=== PATIENT | female | born 1935 | race Caucasian/White ===

== ENCOUNTER 2021-10-06 11:44 | Outpatient (CLI) | payer BC, SELFPAY ==
[2021-10-06 12:46] LABS: Absolute Lymphocyte Count 2.75 X10^3/uL (0.83-4.51); Absolute Neutrophil Count 4.9 X10^3/uL (2.0-7.7); Basophil# 0.05 X10^3/uL; Basophil% 0.6 % (0-1); Eosinophil# 0.29 X10^3/uL; Eosinophils% 3.4 % (0-5); Hematocrit 49.8 % (37-47); Hemoglobin 15.4 g/dL (12.0-15.0); Lymphocyte # 2.75 X10^3/ul (0.83-4.51); Lymphocyte % 32.3 % (19-41); Mean Corp Hgb Conc 30.9 g/dL (32-36); Mean Corpuscular Hgb 26.7 pg (27.0-32.0); Mean Corpuscular Volume 86.5 fL (81-99); Mean Platelet Vol. 9.8 fl (6.2-12.0); Monocyte# 0.52 X10^3/uL; Monocyte% 6.1 % (0-10); NRBC Flagged by Analyzer 0 % (0-5); Neutrophil # 4.89 X10^3/uL (2.7-7.7); Neutrophil % 57.4 % (47-70); Platelet Count 253 K/mm3 (150-450); RBC Distribution Width CV 14.3 % (11.6-14.6); RBC Distribution Width SD 45.3 fl (35.1-43.9); Red Blood Count 5.76 M/mm3 (4.2-5.4); White Blood Count 8.5 K/mm3 (4.4-11.0)
[2021-10-06 13:15] LABS: Anion Gap 2 (5-15); BUN 9 mg/dL (7-18); BUN/Creat Ratio 10.8 RATIO (10-20); Calcium,Total 9.3 mg/dL (8.5-10.1); Chloride 109 mmol/L (98-107); Creatinine, Serum 0.83 mg/dL (0.55-1.02); EST Glomerular Filtration Rate 69 mL/min (>60); Est Glom Filt Rate - Afr Amer 84 mL/min (>60); Glucose 100 mg/dL (74-106); Potassium 3.8 mmol/L (3.5-5.1); Sodium Level 140 mmol/L (136-145); Thyroid Stim Hormone (TSH) 2.13 uIU/mL (0.358-3.74)
== END 2021-10-06 23:59 | disposition home or self-care (01) ==
LOC: LAB 11:50
PROVIDERS: Visit Provider Internal Medicine Cardiovascular Disease
DX: R07.89 Other chest pain (principal); I10 Essential (primary) hypertension; R00.2 Palpitations
CPT/HCPCS: 36415; 80048; 84443; 85025

== ENCOUNTER 2021-10-30 11:29 | Observation (INO) | payer MEDICARE, SELFPAY ==
[2021-10-20 07:57] VITALS: BMI 26.9
--- NOTE | 2021-10-28 08:25 | CASEMGMT ---
According to [employer]'s website, the following tertiary facilities are in network: [facility], [place], [facility], [facility], [facility], [facility] and .
[2021-10-30] VITALS (13 sets, daily range): BP systolic 105–144; BP diastolic 55–85; PULSE 68–80; RESP 16–18; TEMP 36.7–37.5; O2SAT 92–97
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
--- NOTE | 2021-10-30 12:31 | PCIREPORT_ITS ---
PCI Cardiac Cath Report PCI Report: Procedure performed; 1. Successful PCI of mid left circumflex artery high-grade 95% stenosis, with predilatation using 2.5 x 50 mm balloon followed by placement drug-eluting stent SOFYA/Orsiro's 3 x 18 mm and achievement of excellent result with no residual stenosis, 0% and maintenance of ZACK-3 flow pre and post procedure 2. Successful PCI of the mid LAD 70% stenosis at the site of the diagonal branch, D1 is not a large vessel and small vessel, mid LAD predilated using 2.5 x 15 mm Emerge balloon Followed by placement of drug-eluting stent 3 x 15 mm SOFYA/Orsior, followed by performance of pot technique/proximal optimization technique using 3.5 x 8 mm NC balloon to the proximal portion of the stent of the LAD and achievement of 0% post procedure/no residual stenosis, and maintenance of ZACK-3 flow pre and post procedure in the LAD 3. Selective right common femoral artery angiography. 4. Hemostasis will be maintained with manual pressure Medication used in the Student Affairs Vice President Patient was given aspirin Brilinta 180 mg Heparin 6000 units intravenous with acceptable ACT level more than 250 Consent; Risk and benefits of the procedure explained in detail to the patient she elected to proceed informed consent obtained Preprocedure diagnosis; 86-year-old patient who had symptoms of chest pain seen and evaluated by her primary liquid yeast supervisor Dr. Cast and reviewed the cardiac catheterization findings coronary angiography Noted she had two-vessel disease with a high-grade stenosis involving the mid left circumflex 95% and mid LAD 70% LV systolic function preserved Left main had no significant atherosclerosis as well as RCA. Based on her clinical presentation we will proceed with intervention for two- vessel PCI. Interventional equipment and plan.; 1. 6 Ecuadorean sheath exchange to the right common femoral artery 2. 6 Ecuadorean 3.5 EBU guide catheter 3. 0.014 BMW universal straight 190 cm wire 4. 0.014 run-through extra floppy 180 cm straight wire./Guidewire. 5. 2.5 x 15 mm Emerge balloon 6. 3 x 18 mm drug-eluting stent/SOFYA Orsiro 7. 3 x 15 mm drug-eluting stent/SOFYA/Orsiro 8. 3.5 x 8 mm NC Emerge balloon Procedure in detail; Under fluoroscopic guidance we will proceed with the guide catheter 3.5 EBU guide 6 Ecuadorean cannulated the left main without difficulty. Angiographic view was obtained Following this we will proceed with the guidewire run-through guidewire across the lesion in the left circumflex artery followed by predilatation using the 2.5 mm balloon followed by placement of drug-eluting stent and achievement of excellent result Then we used the same wire which was used for the LAD bifurcation lesion 7 across the lesion in the diagonal branch place run-through wire there and then we used a separate wire BMW wire and across the lesion in the mid LAD Followed by predilatation using 2.5 x 50 mm Emerge balloon followed by placement of drug-eluting stent 3 x 50 mm and postdilated using 3.5 x 8 mm NC balloon in the proximal portion of the stent performing this technique which is proximal optimization technique with excellent result with no loss for sidebranch and patient remains a stable clinically she does not have any symptoms of chest pain there were no change in the cardiac monitoring Conclusion successful PCI of the vessel including the mid left circumflex and the mid LAD as described Selective common femoral artery angiography obtained and hemostasis will be maintained with manual pressure Recommendation plan; 1. Patient to continue on DAPT which is low-dose aspirin in addition to Brilinta 90 mg twice a day 2. Patient will be scheduled for cardiac rehab phase 1 program here at [facility] Patient will continue to follow-up with her primary liquid yeast supervisor Dr. Cast for continuation of cardiac care plan and further cardiac recommendation Please note patient tolerated the procedure well in the Student Affairs Vice President with no complication in the Student Affairs Vice President Finding of the PCI explained to the as well as to the patient. Rachael Reed MD,[facility]
--- NOTE | 2021-10-30 12:45 | EKG12_ITS ---
Test Reason : POST PCI Blood Pressure : / mmHG Vent. Rate : 076 BPM Atrial Rate : 076 BPM P-R Int : 152 ms QRS Dur : 086 ms QT Int : 400 ms P-R-T Axes : 056 051 025 degrees QTc Int : 450 ms Normal sinus rhythm Normal ECG Confirmed by CARLEE ANDERSON, RADHA ([id number]), newspaper or periodical editor BECKA MCCRARY ([id number]) on 11/09/2021 1:36:15 PM Referred By: SANTIAGO Confirmed By:RADHA BEJARANO MD
--- NOTE | 2021-10-30 15:15 | CRPHASE1_ITS ---
Patient Communication PHII Cardiac Rehab Discussed with Patient:: Yes Guide to Cardiac Rehab Given to Patient:: Yes Cardiac Rehab Facility Choice List Given to Patient:: Yes Choice Program Other:: Communication [facility] [place] [place] Stage Electrician:: Rachael Reed - Intervention dr Robertson Phase II Cardiac Rehab:: Yes Sessions:: 36 sessions - 3 days/wk, 12 weeks Cardiac Rehabilitation Info Cardiac Rehabilitation Program Information: Cardiac Rehabilitation is important for patients like you who are recovering from a heart problem. Cardiac rehabilitation programs are recognized as integral to the continued care of the patient with coronary heart disease. The cardiac rehabilitation program is designed to optimize a patient's physical, psychological, and social functioning. Health care information associate work in cardiac rehabilitation programs and assist you with getting the treatments you need to get stronger and healthier - like exercise, healthy eating habits, and medications. Cardiac rehabilitation has been show to help people with heart problems live longer and have better life enjoyment than people who do not go to cardiac rehabilitation. Please contact the Cardiac Rehabilitation Program at [facility] at in two weeks if you have not heard from them.
--- NOTE | 2021-10-30 15:18 | CRPH1.INSTRU ---
General Education CAD and cardiac anatomy and function:: Needs reinforcement Explanation of diagnoses and procedures:: Needs reinforcement Sign/Symptoms of RI:: Needs reinforcement Antiplatelet therapy: Needs reinforcement Proper use of NTG-SL: Needs reinforcement Emergency procedures and activation of EMS: Needs reinforcement Compliance of all prescribed medications: Needs reinforcement Smoking Patient Nicotine/Smoking Risk Factors Are:: Never smoked Overweight/Obesity Patient Overweight/Obesity Risk Factors Are:: Overweight = 26-29 Recommendations Include:: Weight loss of 5-10%, Reduced calorie diet, Exercise 5-7 times/week Overweight/Obesity:: Needs reinforcement Hypertension Recommendations Include:: Maintain BP <130/85, BP <130/80 if diabetic, DASH dietary guidelines Hypertension:: Needs reinforcement
[2021-10-30] MEDS: TICAGRELOR 90 MG TABLET PO (23:47)
[2021-10-31 02:59] VITALS: PULSE 76
[2021-10-31 03:40] VITALS: BP 126/62; PULSE 74; RESP 18; TEMP 37.2; O2SAT 96
[2021-10-31 06:24] LABS: Hematocrit 43.3 % (37-47); Hemoglobin 13.9 g/dL (12.0-15.0); Mean Corp Hgb Conc 32.1 g/dL (32-36); Mean Corpuscular Hgb 27.5 pg (27.0-32.0); Mean Corpuscular Volume 85.7 fL (81-99); Mean Platelet Vol. 9.6 fl (6.2-12.0); Platelet Count 196 K/mm3 (150-450); RBC Distribution Width CV 14.2 % (11.6-14.6); RBC Distribution Width SD 44.7 fl (35.1-43.9); Red Blood Count 5.05 M/mm3 (4.2-5.4)
[2021-10-31 06:59] VITALS: PULSE 73
[2021-10-31 07:01] LABS: AST(SGOT) 24 U/L (15-37); Alanine Aminotransfer ALT/SGPT 27 U/L (13-56); Albumin, Serum 3.1 g/dL (3.2-5.0); Alkaline Phosphatase 97 U/L (45-117); Anion Gap 6 (5-15); BUN 9 mg/dL (7-18); BUN/Creat Ratio 10.6 RATIO (10-20); Calcium,Total 8.3 mg/dL (8.5-10.1); Chloride 108 mmol/L (98-107); Creatinine, Serum 0.85 mg/dL (0.55-1.02); EST Glomerular Filtration Rate 68 mL/min (>60); Est Glom Filt Rate - Afr Amer 82 mL/min (>60); Estimated Creatinine Clearance 38.97 ml/min; Glucose 104 mg/dL (74-106); Potassium 3.8 mmol/L (3.5-5.1); Protein, Total 6.1 g/dL (6.4-8.2); Sodium Level 140 mmol/L (136-145)
[2021-10-31 07:22] VITALS: O2SAT 93
--- NOTE | 2021-10-31 07:54 | PN.CARD_ITS ---
Subjective Subjective Patient seen and evaluated. Appears to be doing well. Underwent two-vessel stenting yesterday. Objective Data Vital Signs: Vital Signs Temp Pulse Resp BP Pulse Ox 99.0 F 73 18 126/62 H 96 10/31/21 03:40 10/31/21 06:59 10/31/21 03:40 10/31/21 03:40 10/31/21 03:40 Oxygen Flow Rate (L/min) 2 Oxygen Delivery Method Nasal Cannula Weight: 147 lb Body Mass Index (BMI) 26.9 Intake & Output: Intake and Output for Last 24 Hours 10/29/21 10/30/21 10/31/21 23:59 23:59 23:59 Intake Total 240 / 240 Balance 240 / 240 Lab / Micro Data Result Diagrams: 10/31/21 05:50 10/31/21 05:50 Labs: Laboratory Results - last 24 hr 10/31/21 05:50: WBC 7.0, RBC 5.05, Hgb 13.9, Hct 43.3, MCV 85.7, MCH 27.5, MCHC 32.1, RDW Std Deviation 44.7 H, RDW Coeff of Maggi 14.2, Plt Count 196, MPV 9.6 10/31/21 05:50: Sodium 140, Potassium 3.8, Chloride 108 H, Carbon Dioxide 26.0, Anion Gap 6, BUN 9, Creatinine 0.85, Estim Creat Clear Calc 38.97, Est GFR (MDRD) Af Amer 82, Est GFR (MDRD) Non-Af 68, BUN/Creatinine Ratio 10.6, Glucose 104, Calcium 8.3 L, Total Bilirubin 0.90, AST 24, ALT 27, Alkaline Phosphatase 97, Total Protein 6.1 L, Albumin 3.1 L, Globulin 3.0, Albumin/Globulin Ratio 1.0 Cardiology Labs/Tests 10/31/21 05:50: WBC 7.0, RBC 5.05, Hgb 13.9, Hct 43.3, MCV 85.7, MCH 27.5, MCHC 32.1, Plt Count 196, MPV 9.6 10/31/21 05:50: Sodium 140, Potassium 3.8, Chloride 108 H, Carbon Dioxide 26.0, Anion Gap 6, BUN 9, Creatinine 0.85, Est GFR (MDRD) Af Amer 82, Est GFR (MDRD) Non-Af 68, BUN/Creatinine Ratio 10.6, Glucose 104, Calcium 8.3 L, Total Bi lirubin 0.90 Rhythm: EKG: ECHO: Stress Test: Cardiac Cath: PCI: CT Surgery: Holter monitor: EPS: PPM: CXR: Chest CT Scan: Assessment & Plan Assessment/Plan (1) Atherosclerotic heart disease of [place] coronary artery without angina pectoris: PLAN: Patient is status post PCI of the proximal to mid LAD as well as the mid circumflex artery. Patient tolerated the procedure well. She will be discharged home on aspirin, Brilinta, beta-yoan and high intensity statin. She will be follow-up in office in 4 to 6 weeks.
--- NOTE | 2021-10-31 07:59 | PCM.DC ---
Discharge Instructions Diet Discharge Diet: No restrictions (You may continue your normal diet.) Activity Lifting Restrictions: 10 pounds and also avoid any pushing or pulling for 3 days after your test. Additional Activity Instructions:: You must have someone drive you home. Do not drive until instructed by your doctor. You must have someone stay with you all night after your test. Rest in bed or on the couch until the next morning. Limit the number of times you go up and down stairs the day of your test. Apply pressure to the puncture site if you sneeze or cough. Dressing / Incision Call your doctor if your incision/area has: Increased Pain/ Swelling, Increased Redness, Foul Smelling Discharge and Swelling at the incision site Call your doctor if you observe: Fever of 101 or Higher Additional Dressing/Incision Instructions:: Keep the dressing (bandage) on until the next morning. You may then shower, but do not take a tub bath for 5 days after your test. It is normal to have some tenderness and discomfort at the puncture site. Sometimes bruising also occurs. However, if pain, numbness, or coldness occurs below the puncture site (in your leg, toes, arms or fingers) call your doctor at once. You may have a small, marble sized knot at the puncture site. This is normal. Do not rub it. It will go away in 4-6 weeks. Bleeding can occur from the area where the puncture was done. Blood may spurt or drip from the site. If blood spurts, apply pressure right away to stop bleeding and call 911. Although rare, bleeding into the tissue (hematoma) can also occur. If this happens, a large, firm area goose egg under the skin will appear. If any of these occur, lie down as flat as you can and have someone apply firm pressure to the cath site with a gauze pad or a clean washcloth for 10-15 minutes. Call 911 or go to the Emergency Department. Follow Up Care Test Results: Test results from this visit will be discussed in further detail at your follow-up appointment, if applicable. My office will call for an appointment. Discharge Plan Admission Admit Date/Time: 10/30/21 11:29 Attending Provider: All Cast Primary Care Provider: Radha Xavier NP Discharge Orders/Prescriptions Prescriptions: New aspirin 81 mg Tablet,Delayed Release (Dr/Ec) 81 mg PO DAILY Qty: 60 RF: 0 atorvastatin 10 mg Tablet 10 mg PO QHS Qty: 60 RF: 3 metoprolol succinate 25 mg Tablet Extended Release 24 Hr 12.5 mg PO DAILY Qty: 60 RF: 3 Brilinta 90 mg Tablet 90 mg PO BID Qty: 180 RF: 3 No Action sennosides-docusate sodium [Senexon-S] 8.6-50 mg tablet 1 tab-cap PO QHS RF: 0 levothyroxine 25 mcg capsule 25 mcg PO DAILY RF: 0 pantoprazole 40 mg tablet,delayed release (DR/EC) 40 mg PO DAILY RF: 0 spironolactone 25 mg tablet 25 mg PO DAILY RF: 0 aspirin [Adult Aspirin Regimen] 81 mg tablet,delayed release (DR/EC) 81 mg PO DAILY RF: 0 Referrals / Follow Up: Radha Xavier NP, WEBSITE PROJECT MANAGER-C [Primary Care Provider] - Disposition Disposition (needs filled in before D/C Order can be placed): Home, Self Care
[2021-10-31] MEDS: Aspirin E.C. 81 MG Tablet PO (08:04)
--- NOTE | 2021-10-31 09:04 | CASEMGMT ---
Pt to be sent home on Brilinta and med e-scribed to [facility] in [place] previously. Call to [facility] and per tech, pt's co-pay for 3 month supply is $126(approx. $42/month). Pt updated and provided with one month free trial card, voices understanding. Pt voices no further questions/concerns/needs. Thomas HUTCHINS CM
[2021-10-31 09:10] VITALS: BP 112/73; PULSE 87; RESP 16; TEMP 36.6; O2SAT 95
[2021-10-31 09:12] VITALS: BP 112/73; PULSE 87
[2021-10-31] MEDS: Pantoprazole Sodium 40 MG Tablet PO (09:12)
[2021-10-31] MEDS: Metoprolol(XL)Succ 25 MG Tablet 12.5 MG PO (09:12)
[2021-10-31] MEDS: Levothyroxine 25 MCG TABLET PO (09:12)
[2021-10-31] MEDS: TICAGRELOR 90 MG TABLET PO (09:12)
[2021-10-31] MEDS: Spironolactone 25 MG Tablet PO (09:12)
--- NOTE | 2021-10-31 10:00 | EKG12_ITS ---
Test Reason : POST CATH Blood Pressure : / mmHG Vent. Rate : 072 BPM Atrial Rate : 072 BPM P-R Int : 146 ms QRS Dur : 092 ms QT Int : 406 ms P-R-T Axes : 036 -19 014 degrees QTc Int : 444 ms Normal sinus rhythm Nonspecific ST and T wave abnormality Abnormal ECG Confirmed by ELADIO ANDERSON, DEYSI ([id number]), story editor BECKA MCCRARY ([id number]) on 11/13/2021 1:44:02 PM Referred By: HILLARY Confirmed By:ALEXANDRU HENDRICKS MD
== END 2021-10-31 07:59 | disposition home or self-care (01) ==
LOC: PCU 15:30
PROVIDERS: Internal Medicine Interventional Cardiology; Admitting Provider Internal Medicine Cardiovascular Disease; Visit Provider Internal Medicine Cardiovascular Disease
DX: I25.110 Atherosclerotic heart disease of native coronary artery with unstable angina pectoris (principal); Z79.82 Long term (current) use of aspirin; Z79.899 Other long term (current) drug therapy; E03.9 Hypothyroidism, unspecified; Z79.890 Hormone replacement therapy; M19.90 Unspecified osteoarthritis, unspecified site; I10 Essential (primary) hypertension
CPT/HCPCS: 36415; 80053; 85027; 92928; 93005; 93458; 99152; 99153; 99218; C1874; J7040; Q9967; A4216; C1725; C1769; C1887; C1894; C9600; G0378; J2405

== ENCOUNTER 2021-11-10 10:06 | Outpatient (CLI) | payer MEDICARE, SELFPAY ==
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
== END 2021-11-10 23:59 | disposition home or self-care (01) ==
LOC: RAD 10:07
DX: R07.9 Chest pain, unspecified (principal); R06.00 Dyspnea, unspecified
CPT/HCPCS: 71046; 93005

== ENCOUNTER 2021-11-22 11:14 | Observation (INO) | payer MEDICARE, SELFPAY ==
[2021-11-22] VITALS (9 sets, daily range): BP systolic 143–154; BP diastolic 70–95; PULSE 70–81; RESP 11–22; TEMP 35.7–36.4; O2SAT 93–97; BMI 26.4; BMI 26.1
--- NOTE | 2021-11-22 11:54 | EKG12_ITS ---
Test Reason : CP Blood Pressure : / mmHG Vent. Rate : 066 BPM Atrial Rate : 066 BPM P-R Int : 152 ms QRS Dur : 092 ms QT Int : 410 ms P-R-T Axes : 052 -06 015 degrees QTc Int : 429 ms Normal sinus rhythm Nonspecific ST abnormality Abnormal ECG Confirmed by CARLEE ANDERSON, RADHA ([id number]), development editor BECKA MCCRARY ([id number]) on 11/24/2021 10:16:03 AM Referred By: DEQUAN Confirmed By:RADHA BEJARANO MD
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
[2021-11-22] MEDS: 0.9% Normal Saline 1,000 ML 150 ML IV (12:18)
[2021-11-22 12:31] LABS: Absolute Lymphocyte Count 1.95 X10^3/uL (0.83-4.51); Absolute Neutrophil Count 5.5 X10^3/uL (2.0-7.7); Basophil# 0.04 X10^3/uL; Basophil% 0.5 % (0-1); Eosinophil# 0.19 X10^3/uL; Eosinophils% 2.3 % (0-5); Hematocrit 50.7 % (37-47); Hemoglobin 16.3 g/dL (12.0-15.0); Lymphocyte # 1.95 X10^3/ul (0.83-4.51); Lymphocyte % 23.7 % (19-41); Mean Corp Hgb Conc 32.1 g/dL (32-36); Mean Corpuscular Hgb 27.8 pg (27.0-32.0); Mean Corpuscular Volume 86.4 fL (81-99); Mean Platelet Vol. 9.7 fl (6.2-12.0); Monocyte# 0.52 X10^3/uL; Monocyte% 6.3 % (0-10); NRBC Flagged by Analyzer 0 % (0-5); Neutrophil # 5.47 X10^3/uL (2.7-7.7); Neutrophil % 66.5 % (47-70); Platelet Count 218 K/mm3 (150-450); RBC Distribution Width SD 44.3 fl (35.1-43.9); Red Blood Count 5.87 M/mm3 (4.2-5.4); White Blood Count 8.2 K/mm3 (4.4-11.0)
[2021-11-22 12:48] LABS: Anion Gap 6 (5-15); BUN 11 mg/dL (7-18); BUN/Creat Ratio 15.4 RATIO (10-20); Calcium,Total 9.7 mg/dL (8.5-10.1); Chloride 106 mmol/L (98-107); Creatinine, Serum 0.71 mg/dL (0.55-1.02); EST Glomerular Filtration Rate 83 mL/min (>60); Est Glom Filt Rate - Afr Amer 100 mL/min (>60); Estimated Creatinine Clearance 33.12 ml/min; Glucose 93 mg/dL (74-106); Potassium 3.8 mmol/L (3.5-5.1); Sodium Level 139 mmol/L (136-145); Troponin-I HS 4 pg/mL (3.0-54.0)
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
--- NOTE | 2021-11-22 15:38 | EKG12_ITS ---
Test Reason : Blood Pressure : / mmHG Vent. Rate : 077 BPM Atrial Rate : 077 BPM P-R Int : 146 ms QRS Dur : 086 ms QT Int : 414 ms P-R-T Axes : 049 -20 -01 degrees QTc Int : 468 ms Normal sinus rhythm Nonspecific ST abnormality Abnormal ECG Confirmed by CARLEE ANDERSON, RADHA ([id number]), news editor BECKA MCCRARY ([id number]) on 11/24/2021 10:34:05 AM Referred By: Confirmed By:RADHA BEJARANO MD
[2021-11-22] MEDS: 0.9% Saline Lock 10 ML Syringe IV (16:13)
[2021-11-22] MEDS: 0.9% Normal Saline 1,000 ML 75 ML IV (16:13)
[2021-11-22 16:24] LABS: Hematocrit 47.6 % (37-47); Hemoglobin 16.1 g/dL (12.0-15.0)
[2021-11-22 16:37] LABS: Troponin-I HS < 3 pg/mL (3.0-54.0)
--- NOTE | 2021-11-22 18:39 | NURSING ---
Reviewed charting with Rebecca Tate RN
[2021-11-22 19:15] LABS: Hematocrit 41.2 % (37-47); Hemoglobin 13.3 g/dL (12.0-15.0)
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
[2021-11-22 19:49] LABS: Troponin-I HS < 3 pg/mL (3.0-54.0)
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
[2021-11-22] MEDS: Bisacodyl 5 MG Tablet 20 MG PO (21:17)
[2021-11-22] MEDS: Electrolyte Solution/Peg's 4000 ML PO (21:18)
[2021-11-22] MEDS: Atorvastatin Calcium 10 MG Tablet PO (21:20)
[2021-11-22] MEDS: Levothyroxine 25 MCG TABLET PO (21:20)
[2021-11-23] VITALS (15 sets, daily range): BP systolic 98–132; BP diastolic 41–90; PULSE 71–98; RESP 16; TEMP 36.1–36.5; O2SAT 92–98; BMI 26.1; BMI 25.8
[2021-11-23] MEDS: 0.9% Normal Saline 1,000 ML 75 ML IV (05:33)
[2021-11-23] MEDS: Clopidogrel Bisulfate 75 MG Tablet PO (05:47)
[2021-11-23] MEDS: Aspirin E.C. 81 MG Tablet PO (05:47)
--- NOTE | 2021-11-23 05:55 | EKG12_ITS ---
Test Reason : Blood Pressure : / mmHG Vent. Rate : 075 BPM Atrial Rate : 075 BPM P-R Int : 152 ms QRS Dur : 086 ms QT Int : 398 ms P-R-T Axes : 046 -24 003 degrees QTc Int : 444 ms Normal sinus rhythm Nonspecific ST abnormality Abnormal ECG Confirmed by CARLEE ANDERSON, RADHA ([id number]), editor index BECKA MCCRARY ([id number]) on 11/24/2021 10:36:21 AM Referred By: JUAN Confirmed By:RADHA BEJARANO MD
[2021-11-23 06:03] LABS: Absolute Lymphocyte Count 2.23 X10^3/uL (0.83-4.51); Absolute Neutrophil Count 4.9 X10^3/uL (2.0-7.7); Basophil# 0.03 X10^3/uL; Basophil% 0.4 % (0-1); Eosinophil# 0.19 X10^3/uL; Eosinophils% 2.4 % (0-5); Hematocrit 42.1 % (37-47); Hemoglobin 13.2 g/dL (12.0-15.0); Lymphocyte # 2.23 X10^3/ul (0.83-4.51); Lymphocyte % 28.4 % (19-41); Mean Corp Hgb Conc 31.4 g/dL (32-36); Mean Corpuscular Hgb 27.3 pg (27.0-32.0); Mean Corpuscular Volume 87.2 fL (81-99); Mean Platelet Vol. 9.7 fl (6.2-12.0); Monocyte# 0.46 X10^3/uL; Monocyte% 5.9 % (0-10); NRBC Flagged by Analyzer 0 % (0-5); Neutrophil # 4.91 X10^3/uL (2.7-7.7); Neutrophil % 62.5 % (47-70); Platelet Count 191 K/mm3 (150-450); RBC Distribution Width SD 44.6 fl (35.1-43.9); Red Blood Count 4.83 M/mm3 (4.2-5.4); White Blood Count 7.9 K/mm3 (4.4-11.0)
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
--- NOTE | 2021-11-23 09:53 | STRESSREP_ITS ---
Stress Test Report Date: 11-23-2021 Procedure: Pharmacologic stress nuclear imaging study Indications: Chest pain; CAD; PCI Consent: Per the patient Procedure: The patient underwent pharmacologic (Regadenoson 0.4mg ) evaluation with a peak heart rate of 110 beats per minute (80%predicted maximal heart rate) and a peak blood pressure of 130/70 mmHg. The baseline ECG demonstrated normal sinus rhythm. The peak pharmacologic ECG demonstrated no obvious ECG changes. There were no cardiac dysrhythmias pretest, during pharmacologic infusion, or recovery. The patient noted vague chest discomfort pretest, during infusion, and recovery without significant change. The examination was discontinued secondary to completion of protocol. Impression: 1. Pharmacologic (Regadenoson) evaluation 2. Peak pharmacologic ECG with no obvious ECG change. 3. There were no cardiac dysrhythmias pretest, during pharmacologic infusion, or recovery. 4. Nuclear images pending Myocardial perfusion imaging study: Technique: The patient was injected with 11.0 millicuries of technetium 99m Cardiolite and subsequently rest SPECT Cardiolite nuclear imaging was obtained in the horizontal long, vertical long, and short axis views. The patient underwent pharmacologic (Regadenoson) evaluation with a peak heart rate of 110 beats per minute (80% percent predicted maximal heart rate) and a peak blood pressure of 130/70 mmHg. The patient was injected with 35.0 millicuries of technetium 99m Cardiolite and subsequently stress SPECT Cardiolite nuclear imaging was obtained in the horizontal long, vertical long, and short axis views. A gated Cardiolite study at peak stress was obtained. Interpretation: Rest and stress SPECT Cardiolite nuclear imaging status post realignment, normalization, and attenuation correction demonstrate relative uniform tracer uptake and myocardial perfusion appearing within normal limits. There is end systolic thickening and brightening. The gated Cardiolite study demonstrates myocardial thickening and inward wall motion. The reported LVEF is 73%. Impression: 1. Relative uniform tracer uptake and myocardial perfusion appearing within normal limits. 2. The gated Cardiolite study reports an LVEF of 73%. This note was generated with [employer] software. It may contain incorrect words, spelling, and punctuation that were not noted in checking the note before signing.
[2021-11-23] MEDS: 0.9% Normal Saline 1,000 ML 15 ML IV (10:26)
--- NOTE | 2021-11-23 12:50 | OP.EGD_ITS ---
Patient Name: Brandie Kiser Procedure Date: 11/23/2021 12:11 PM Date of : 1935 Age: 86 Procedure: Upper GI endoscopy Indications: Hematochezia Providers: Umberto Garcia DO Medicines: Monitored Anesthesia Care Patient Profile: This is an 86 year old female. Refer to note in patient chart for documentation of history and physical. Patient has symptoms. Complications: No immediate complications. Procedure: Pre-Anesthesia Assessment: - Prior to the procedure, a History and Physical was performed, and patient medications and allergies were reviewed. The patient is competent. The risks and benefits of the procedure and the sedation options and risks were discussed with the patient. All questions were answered and informed consent was obtained. Patient identification and proposed procedure were verified by the physician in the pre-procedure area. Mental Status Examination: alert and oriented. Airway Examination: normal oropharyngeal airway and neck mobility. Respiratory Examination: clear to auscultation. CV Examination: normal. Prophylactic Antibiotics: The patient does not require prophylactic antibiotics. Prior Anticoagulants: The patient has taken no previous anticoagulant or antiplatelet agents. ASA Grade Assessment: II - A patient with mild systemic disease. After reviewing the risks and benefits, the patient was deemed in satisfactory condition to undergo the procedure. The anesthesia plan was to use moderate sedation / analgesia (conscious sedation). Immediately prior to administration of medications, the patient was re-assessed for adequacy to receive sedatives. The heart rate, respiratory rate, oxygen saturations, blood pressure, adequacy of pulmonary ventilation, and response to care were monitored throughout the procedure. The physical status of the patient was re-assessed after the procedure. After obtaining informed consent, the endoscope was passed under direct vision. Throughout the procedure, the patient's blood pressure, pulse, and oxygen saturations were monitored continuously. The Duodenoscope was introduced through the mouth, and advanced to the second part of duodenum. The upper GI endoscopy was accomplished without difficulty. The patient tolerated the procedure well. Moderate Sedation: Moderate (conscious) sedation was personally administered by an anesthesia professional. The following parameters were monitored: oxygen saturation, heart rate, blood pressure, and response to care. Total physician intraservice time was 15 minutes. Scope In: 12:14:54 PM Scope Out: 12:18:24 PM Total Procedure Duration Time 0 hours 3 minutes 30 seconds Findings: LA Grade A (one or more mucosal breaks less than 5 mm, not extending between tops of 2 mucosal folds) esophagitis with no bleeding was found 38 to 40 cm from the incisors. Patchy mildly erythematous mucosa without bleeding was found in the gastric body. The second portion of the duodenum was normal. Impression: - LA Grade A reflux esophagitis. - Erythematous mucosa in the gastric body. - Normal second portion of the duodenum. - No specimens collected. Recommendation: - [facility] patient to [facility] care. - Resume regular diet. - Continue present medications. - Await pathology results. Procedure Code(s): --- Professional --- 45964, Esophagogastroduodenoscopy, flexible, transoral; diagnostic, including collection of specimen(s) by brushing or washing, when performed (separate procedure) CPT copyright 2017 [employer]. All rights reserved. The codes documented in this report are preliminary and upon service restorer emergency review may be revised to meet current compliance requirements. Umberto Garcia DO 11/23/2021 12:50:15 PM This report has been signed electronically. Number of Addenda: 1 Note Initiated On: 11/23/2021 12:11 PM Addendum Number: 1 Addendum Date: 04/26/2022 6:23:20 AM MAC was used as sedation for this procedure. Umberto Garcia DO 04/26/2022 6:23:24 AM This report has been signed electronically.
--- NOTE | 2021-11-23 12:51 | OP.CCLET_ITS ---
04/26/2022 Radha Xavier Clinical Services Director, Clinical Services Director-c Re : Upper GI endoscopy procedure for Brandie Kiser Dear [place] This procedure was performed on October. My impressions and recommendations are as follows: Impressions : - LA Grade A reflux esophagitis. - Erythematous mucosa in the gastric body. - Normal second portion of the duodenum. - No specimens collected. Recommendations : - Return patient to [facility] for ongoing care. - Resume regular diet. - Continue present medications. - Await pathology results. My findings are described in the full procedure note, which is enclosed. If I can be of further assistance, please feel free to contact me at . Sincerely, Umberto Garcia DO 11/23/2021 12:50:15 PM This report has been signed electronically.
--- NOTE | 2021-11-23 13:15 | PCM.DC ---
Discharge Instructions Diet Discharge Diet: Low fat / Low cholesterol and 2000 mg Sodium Diet Activity Discharge Activity: Return to Normal Activity Follow Up Care Test Results: Test results from this visit will be discussed in further detail at your follow-up appointment, if applicable. Discharge Plan Admission Admit Date/Time: 11/22/21 15:09 Primary Reason for Your Visit: Acute GI bleed Attending Provider: Judie Mishra Primary Care Provider: Radha Xavier NP Consulting Providers: Linwood Rg Instructions Additional Instructions / Restrictions: Continue to take your aspirin and Plavix as prescribed. Follow-up with cardiology within 2 weeks. Discharge Orders/Prescriptions Prescriptions: New aspirin 81 mg Tablet,Delayed Release (Dr/Ec) 81 mg PO BREAKFAST 30 Days Qty: 30 RF: 0 Continued sennosides-docusate sodium [Senexon-S] 8.6-50 mg tablet 1 tab-cap PO QHS RF: 0 pantoprazole 40 mg tablet,delayed release (DR/EC) 40 mg PO DAILY RF: 0 spironolactone 25 mg tablet 25 mg PO DAILY RF: 0 atorvastatin 10 mg Tablet 10 mg PO QHS Qty: 60 RF: 3 metoprolol succinate 25 mg Tablet Extended Release 24 Hr 12.5 mg PO DAILY Qty: 60 RF: 3 Brilinta 90 mg Tablet 90 mg PO BID Qty: 180 RF: 3 clopidogrel 75 mg tablet 75 mg PO DAILY RF: 0 levothyroxine [Synthroid] 25 mcg tablet 25 mcg PO QHS RF: 0 Referrals / Follow Up: Radha Xavier NP, [facility] [Primary Care Provider] - In 1 Week Linwood Rg MD [STAFF PHYSICIAN] - Within 2 Weeks Disposition Disposition (needs filled in before D/C Order can be placed): Home, Self Care
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
--- NOTE | 2021-11-23 13:21 | OP.CCLET_ITS ---
04/26/2022 Radha Xvaier Credit Risk Analytics Manager, Credit Risk Analytics Manager-c Re : Colonoscopy procedure for Brandie Colonr [place] This procedure was performed on October. My impressions and recommendations are as follows: Impressions : - Moderate diverticulosis in the entire examined colon. There was evidence of recent bleeding from the diverticular opening. - The examined portion of the ileum was normal. - No specimens collected. Recommendations : - Return to normal activities in 1 day. - Resume regular diet. - Continue present medications. - No recommendation at this time regarding repeat colonoscopy due to age. My findings are described in the full procedure note, which is enclosed. If I can be of further assistance, please feel free to contact me at . Sincerely, Umberto Friend, 11/23/2021 1:20:51 PM This report has been signed electronically.
--- NOTE | 2021-11-23 13:21 | OP.COLON_ITS ---
Patient Name: Brandie Kiser Procedure Date: 11/23/2021 12:18 PM Date of : 1935 Age: 86 Procedure: Colonoscopy Indications: Hematochezia Providers: Umberto Garcia DO Medicines: Monitored Anesthesia Care Patient Profile: This is an 86 year old female. Refer to note in patient chart for documentation of history and physical. Patient has symptoms. Last Colonoscopy: 10 years ago. Complications: No immediate complications. Procedure: Pre-Anesthesia Assessment: - Prior to the procedure, a History and Physical was performed, and patient medications and allergies were reviewed. The patient is competent. The risks and benefits of the procedure and the sedation options and risks were discussed with the patient. All questions were answered and informed consent was obtained. Patient identification and proposed procedure were verified by the physician in the pre-procedure area. Mental Status Examination: alert and oriented. Airway Examination: normal oropharyngeal airway and neck mobility. Respiratory Examination: clear to auscultation. CV Examination: normal. Prophylactic Antibiotics: The patient does not require prophylactic antibiotics. Prior Anticoagulants: The patient has taken no previous anticoagulant or antiplatelet agents. ASA Grade Assessment: II - A patient with mild systemic disease. After reviewing the risks and benefits, the patient was deemed in satisfactory condition to undergo the procedure. The anesthesia plan was to use moderate sedation / analgesia (conscious sedation). Immediately prior to administration of medications, the patient was re-assessed for adequacy to receive sedatives. The heart rate, respiratory rate, oxygen saturations, blood pressure, adequacy of pulmonary ventilation, and response to care were monitored throughout the procedure. The physical status of the patient was re-assessed after the procedure. After I obtained informed consent, the scope was passed under direct vision. Throughout the procedure, the patient's blood pressure, pulse, and oxygen saturations were monitored continuously. The pediatric colonoscope was introduced through the anus and advanced to the terminal ileum. The colonoscopy was performed without difficulty. The patient tolerated the procedure well. The quality of the bowel preparation was good. Moderate Sedation: Moderate (conscious) sedation was administered by the endoscopy nurse and supervised by the endoscopist. The patient's oxygen saturation, heart rate, blood pressure and response to care were monitored. Total physician intraservice time was 15 minutes. Scope In: 12:21:17 PM Scope Withdrawal Time 0 hours 10 minutes 8 seconds Scope Out: 12:38:23 PM Total Procedure Duration Time 0 hours 17 minutes 6 seconds Findings: The perianal and digital rectal examinations were normal. Multiple small and large-mouthed diverticula were found in the entire colon. There was evidence of recent bleeding from the diverticular opening. The terminal ileum appeared normal. Impression: - Moderate diverticulosis in the entire examined colon. There was evidence of recent bleeding from the diverticular opening. - The examined portion of the ileum was normal. - No specimens collected. Recommendation: - Return to normal activities in 1 day. - Resume regular diet. - Continue present medications. - No recommendation at this time regarding repeat colonoscopy due to age. Procedure Code(s): --- Professional --- 92997, Colonoscopy, flexible; diagnostic, including collection of specimen(s) by brushing or washing, when performed (separate procedure) G0500, Moderate sedation services provided by the same physician or other qualified health morning caregiver performing a gastrointestinal endoscopic service that sedation supports, requiring the presence of an independent trained observer to assist in the monitoring of the patient's level of consciousness and physiological status; initial 15 minutes of intra-service time; patient age 5 years or older (additional time may be reported with 97615, as appropriate) CPT copyright 2017 [employer]. All rights reserved. The codes documented in this report are preliminary and upon military pay technician review may be revised to meet current compliance requirements. Umberto Garcia DO 11/23/2021 1:20:51 PM This report has been signed electronically. Number of Addenda: 1 Note Initiated On: 11/23/2021 12:18 PM Addendum Number: 1 Addendum Date: 04/26/2022 6:23:32 AM MAC was used as sedation for this procedure. Umberto Garcia DO 04/26/2022 6:23:36 AM This report has been signed electronically.
--- NOTE | 2021-11-23 14:32 | PHA.DC.MR ---
Pharmacy Service has performed discharge medication reconciliation for this patient. The patient's discharge medication list was reviewed for discrepancies and discrepancies were resolved. Home Medications pantoprazole 40 mg tablet,delayed release 40 mg PO DAILY 10/05/21 sennosides 8.6 mg-docusate sodium 50 mg tablet 1 tab-cap PO QHS 10/05/21 spironolactone 25 mg tablet 25 mg PO DAILY 10/06/21 Brilinta 90 mg PO BID #180 tab 10/31/21 atorvastatin 10 mg PO QHS #60 tab 10/31/21 metoprolol succinate 12.5 mg PO DAILY #60 tab 10/31/21 levothyroxine [Synthroid] 25 mcg PO QHS 11/22/21 aspirin 81 mg PO BREAKFAST 30 Days #30 tab 11/23/21
== END 2021-11-23 13:15 | disposition home or self-care (01) ==
LOC: ED 14:44 → PCU 14:57
PROVIDERS: Internal Medicine Gastroenterology; Nurse Practitioner Family; Admitting Provider Family Medicine; Emergency Provider Emergency Medicine; Visit Provider Internal Medicine
PROC: 0DJD8ZZ Inspection of Lower Intestinal Tract, Via Natural or Artificial Opening Endoscopic (ICD-10-PCS; CPT 45378; principal; 2021-11-23 12:30)
DX: I25.10 Atherosclerotic heart disease of native coronary artery without angina pectoris (principal); R06.02 Shortness of breath; Z79.02 Long term (current) use of antithrombotics/antiplatelets; E78.5 Hyperlipidemia, unspecified; K92.1 Melena; Z18.10 Retained metal fragments, unspecified; E03.9 Hypothyroidism, unspecified; K57.30 Diverticulosis of large intestine without perforation or abscess without bleeding; I10 Essential (primary) hypertension; M19.90 Unspecified osteoarthritis, unspecified site; Z79.82 Long term (current) use of aspirin; Z79.899 Other long term (current) drug therapy; Z79.890 Hormone replacement therapy; K21.00 Gastro-esophageal reflux disease with esophagitis, without bleeding
CPT/HCPCS: 45378; 43235; 36415; 71045; 78452; 80048; 84484; 85014; 85018; 85025; 86850; 86900; 86901; 87426; 93005; 93017; 96361; 96365; 96366; 99218; 99285; A9500; J7030; A4216; G0378; J2405; J2785

== ENCOUNTER → 2021-12-13 | Outpatient (CLI) | payer MEDICARE, SELFPAY ==
[2021-12-13 14:26] LABS: Hematocrit 45.9 % (37-47); Hemoglobin 14.4 g/dL (12.0-15.0)
== END | disposition home or self-care (01) ==
LOC: LAB 13:56
PROVIDERS: Referring Provider Physician Assistant Medical; Visit Provider Physician Assistant Medical
DX: K92.2 Gastrointestinal hemorrhage, unspecified (principal)
CPT/HCPCS: 36415; 85014; 85018

== ENCOUNTER 2022-02-08 11:33 | Emergency (ER) | payer MEDICARE, SELFPAY ==
[2022-02-08 11:34] VITALS: BP 166/88; PULSE 71; RESP 18; TEMP 36.5; O2SAT 95; BMI 27.6
--- NOTE | 2022-02-08 11:45 | EKG12_ITS ---
Test Reason : cp Blood Pressure : / mmHG Vent. Rate : 065 BPM Atrial Rate : 065 BPM P-R Int : 152 ms QRS Dur : 092 ms QT Int : 424 ms P-R-T Axes : 046 019 012 degrees QTc Int : 440 ms Normal sinus rhythm Nonspecific ST and T wave abnormality Abnormal ECG Confirmed by ELADIO ANDERSON, DEYSI ([id number]), marketing editor BECKA MCCRARY ([id number]) on 02/09/2022 10:35:03 A M Referred By: Jarek Confirmed By:ALEXANDRU HENDRICKS MD
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
[2022-02-08] MEDS: Aspirin 81 MG TAB.CHEW 324 MG PO (11:53)
[2022-02-08 12:04] LABS: Absolute Lymphocyte Count 2.44 X10^3/uL (0.83-4.51); Absolute Neutrophil Count 5.3 X10^3/uL (2.0-7.7); Basophil# 0.04 X10^3/uL; Basophil% 0.4 % (0-1); Eosinophil# 0.34 X10^3/uL; Eosinophils% 3.8 % (0-5); Hematocrit 47.8 % (37-47); Lymphocyte # 2.44 X10^3/ul (0.83-4.51); Lymphocyte % 27.3 % (19-41); Mean Corp Hgb Conc 31.4 g/dL (32-36); Mean Corpuscular Hgb 27.6 pg (27.0-32.0); Mean Platelet Vol. 9.6 fl (6.2-12.0); Monocyte# 0.75 X10^3/uL; Monocyte% 8.4 % (0-10); NRBC Flagged by Analyzer 0 % (0-5); Neutrophil # 5.32 X10^3/uL (2.7-7.7); Neutrophil % 59.4 % (47-70); Platelet Count 231 K/mm3 (150-450); RBC Distribution Width CV 13.6 % (11.6-14.6); RBC Distribution Width SD 44.1 fl (35.1-43.9); Red Blood Count 5.43 M/mm3 (4.2-5.4)
[2022-02-08 12:09] VITALS: BP 148/83; PULSE 69
[2022-02-08] MEDS: Nitroglycerin SL (ED/IMG/CATH) 0.4 MG TABLET SL ×2 (12:09→12:15)
[2022-02-08 12:15] VITALS: BP 120/80; PULSE 74
[2022-02-08 12:24] LABS: Anion Gap 4 (5-15); BUN 6 mg/dL (7-18); BUN/Creat Ratio 8.3 RATIO (10-20); Calcium,Total 9.1 mg/dL (8.5-10.1); Chloride 109 mmol/L (98-107); Creatinine, Serum 0.73 mg/dL (0.55-1.02); EST Glomerular Filtration Rate 81 mL/min (>60); Est Glom Filt Rate - Afr Amer 98 mL/min (>60); Estimated Creatinine Clearance 33.12 ml/min; Glucose 103 mg/dL (74-106); Sodium Level 141 mmol/L (136-145); Troponin-I HS (w/2H Reflex) 4 pg/mL (3.0-54.0)
[2022-02-08 12:25] LABS: D-Dimer Quantitative (DVT/PE) 1.02 FEU/ug/m (0.27-0.49)
--- NOTE | 2022-02-08 12:25 | CT_ITS ---
STUDY: CTA CHEST REASON FOR EXAM: Female, 86 years old. Rule out PE, chest pain RADIATION DOSAGE (If Supplied By Facility): CTDIvol = ( 14.91 ) mGy, DLP = ( 398.11 ) mGycm TECHNIQUE: The examination was performed with the intravenous administration of IV 100mL Isovue-370. Post-processing of the angiographic images was performed, with multiplanar reformation and 3D reconstruction. Individualized dose optimization techniques were used for this CT. COMPARISON: Comparison is made with prior chest radiograph done earlier today. FINDINGS: Normal enhancement of the main pulmonary artery and right and left pulmonary arteries. Normal enhancement of the bilateral peripheral pulmonary arteries. There is no demonstrated pulmonary embolism. Normal thoracic aorta and visualized great vessels. There is no demonstrated aortic dissection. There are calcifications of the coronary arteries. Normal mediastinum. Normal hilar regions. Normal visualized trachea and bronchi. Elevation of the right hemidiaphragm. Linear density in the medial right middle lobe suggestive of early atelectasis and/or scarring. Mild degree of dependent bibasilar atelectasis. Normal pleura. Normal chest wall structures. There are degenerative changes of thoracic spine. Increased kyphosis. There is evidence of prior anterior abdominal wall hernia repair with a mesh. The patient is status post cholecystectomy. Small hiatal hernia. CT/CTA Chest W/WO Contrast IMPRESSION: No evidence of pulmonary embolism. Mildly limited scarring and/or atelectasis in the right middle lobe as well as at the lung bases. Electronically Signed: Valeriano Meier MD at 13:29 EDT ,
[2022-02-08 12:33] VITALS: BP 128/78; PULSE 69; RESP 14; O2SAT 94
[2022-02-08 13:33] VITALS: BP 118/64; PULSE 66; RESP 14; O2SAT 98
[2022-02-08 13:56] VITALS: BP 116/78; PULSE 78; RESP 14; TEMP 37.2; O2SAT 99
[2022-02-08 14:02] LABS: Reflex Troponin-HS? (from REC) Y
== END 2022-02-08 14:15 | disposition home or self-care (01) ==
PROVIDERS: Physician Assistant; Emergency Provider Emergency Medicine; Visit Provider Emergency Medicine
DX: R07.89 Other chest pain (principal); I10 Essential (primary) hypertension; E03.9 Hypothyroidism, unspecified; M48.00 Spinal stenosis, site unspecified; Z79.82 Long term (current) use of aspirin; Z79.899 Other long term (current) drug therapy; M19.90 Unspecified osteoarthritis, unspecified site; I25.10 Atherosclerotic heart disease of native coronary artery without angina pectoris; Z95.5 Presence of coronary angioplasty implant and graft
CPT/HCPCS: 71045; 71275; 80048; 84484; 85025; 85379; 93005; 99285; Q9967; A4216

== ENCOUNTER → 2022-02-20 | Outpatient (CLI) | payer MEDICARE, SELFPAY ==
--- NOTE | 2022-02-20 13:33 | STRESSREP ---
Stress Test Report Pharmacologic myocardial perfusion stress test. 86-year-old lady with a history of chest pain. Stress protocol: Resting KG demonstrates normal sinus rhythm with a rate of 67 bpm normal intervals are noted resting blood pressure is 124/82 mmHg. 0.4 mg of regadenoson was infused per usual protocol followed by rapid intravenous saline flush injection continuous EKG monitoring was performed. The maximum heart rate attained was 88 bpm which was 64% of max impacted heart rate the maximum workload was 1 metabolic equivalent. At rest there were no ST or T wave changes noted to suggest abnormal flow reserve and at peak infusion nonspecific ST changes were noted. The final blood pressure was 114/70 mmHg. Myocardial perfusion protocol. 11.7 mCi of technetium 99m sestamibi was injected at rest. 0.4 mg of regadenoson was infused per usual protocol. At peak infusion 36.0 mCi of technetium 99m sestamibi was injected stress images were obtained stress and rest images were reconstructed and compared in the short axis vertical long and horizontal long axis. Gated images were also obtained Perfusion SPECT analysis: Review of the stress images demonstrate normal uptake of tracer noted in all areas of the myocardium. The resting images similar demonstrate normal uptake of tracer noted in all areas of the myocardium. No areas of reversibility are noted to suggest ischemia and no previous infarct is noted. Gated SPECT analysis: The gated ejection fraction is 70%. Conclusion: Normal pharmacologic myocardial perfusion stress test. Preserved ejection fraction.
== END | disposition home or self-care (01) ==
PROVIDERS: Referring Provider Physician Assistant Medical; Visit Provider Physician Assistant Medical
DX: R07.9 Chest pain, unspecified (principal)
CPT/HCPCS: 78452; 93017; A9500; A4216; J2785

== ENCOUNTER 2022-02-26 09:35 | Day surgery (SDC) | payer MEDICARE, SELFPAY ==
[2022-02-23 11:10] VITALS: BMI 26.2
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
--- NOTE | 2022-03-01 12:12 | CL.D_ITS ---
Patient Name: SUSY BAKER Study Date: 02/26/2022 Performing: All Cast MD Ht: 61.81 inches 157 cm : 1935 Wt: 143.3 lbs 65 kg Age: 86 Gender: female BSA: 1.66 PROCEDURE(S) PERFORMED DC01-(63085)LHC/COR/LV CLINICAL PROFILE AND INDICATIONS Indications: Suspected CAD Heart Failure: None Stress/Imaging Date: 02/19/22Stress Test with SPECT MPI: Negative CAD Presentations: Symptom unlikely to be ischemic. CONCLUSIONS Two-vessel disease with previously stented LAD and circumflex artery with widely patent stents. Righ t coronary artery is noted to be normal. RECOMMENDATIONS Medical therapy DESCRIPTION OF PROCEDURE The patient arrived to the procedure lab. The risks and benefits of the procedure as well as a full d escription of our services here and current unavailability of surgical backup were fully explained to the patient and/or their significant other prior to the catheterization. The Timeout was completed, verifying the correct patient and procedure. The patient's procedural site was prepped and draped in the usual fashion. Local anesthetic was given subcutaneously to right groin region with Lidocaine 2%. Using a modified Seldinger technique, arterial access was obtained via the right femoral artery, a 5 Fr sheath was inserted. Right Coronary Artery selective angiography was then performed in multiple v iews using a 5 Fr. 3DRC (Alex) catheter. Left Coronary Artery selective angiography was performed in multiple views using a 5 Fr. JL4 catheter. Left Ventriculography was performed in EDOUARD projection using a 5 Fr. Pigtail catheter. LV to AO pullback pressures were then recorded.Contrast was injected through the sheath and the Right Iliac and Femoral artery were assessed for possible anushka sure device.The arterial sheath was pulled and a Mynx closure device was deployed for hemostasis CORONARY ANGIOGRAPHY DOMINANCE: Left Dominant LEFT HEART ASSESSMENT Left Ventricular Ejection Fraction: by LV Gram 60 % Normal LV wall motion Normal Left Ventricular systolic function LEFT MAIN: Angiographically normal LEFT ANTERIOR DESCENDING ARTERY: MID LAD: Previously placed stent is patent CIRCUMFLEX ARTERY: MID CIRC: Previously placed stent is patent RIGHT CORONARY ARTERY: No significant disease noted COMPLICATIONS No Complications PROCEDURE MEDICATIONS Fentanyl 50 mcg IV Versed 1 mg IV Fentanyl 50 mcg IV Versed 1 mg IV Oxygen: 2 L/min via nasal cannula SUMMARY OF HEMODYNAMIC DATA Time AIR REST ECG 10:05:19 AO 147/77 (106) SA 11:28:47 LV 136/10, 15 11:35:35 LV 126/9, 13 11:35:41 LV 115/14, 17 11:36:18 LVp 118/14, 18 11:36:24 AOp 118/60 (85) 11:36:29 Signed By All Cast MD On 02/26/2022 11:50:08 AM All Cast MD
== END 2022-02-26 14:25 | disposition home or self-care (01) ==
PROVIDERS: Referring Provider Internal Medicine Cardiovascular Disease; Visit Provider Internal Medicine Cardiovascular Disease
DX: I25.10 Atherosclerotic heart disease of native coronary artery without angina pectoris (principal); I10 Essential (primary) hypertension; E03.9 Hypothyroidism, unspecified; M19.90 Unspecified osteoarthritis, unspecified site; M48.00 Spinal stenosis, site unspecified; Z95.5 Presence of coronary angioplasty implant and graft; Z79.899 Other long term (current) drug therapy; Z79.82 Long term (current) use of aspirin
CPT/HCPCS: 93458; 99152; 99153; C1760; J7040; C1769; C1894

== ENCOUNTER → 2022-03-30 | Outpatient (CLI) | payer MEDICARE, SELFPAY ==
--- NOTE | 2022-03-30 09:40 | US_ITS ---
STUDY: ABDOMINAL ULTRASOUND - RIGHT UPPER QUADRANT REASON FOR VISIT: Female, 86 years old . Elevated liver enzymes. TECHNIQUE: Ultrasound evaluation of the right upper quadrant was performed with real-time and static hankins-scale imaging. TECHNICAL QUALITY: Adequate. COMPARISON: None. FINDINGS: Liver: The liver measures 15.0 cm. There is increased echogenicity consistent with fatty infiltration. The bile ducts are within normal limits. There is hepatic color flow. The direction of portal flow is hepatopetal. There is no demonstrated mass lesion. Gallbladder: The patient is status post cholecystectomy. Common Bile Duct (C.B.D.): The common bile duct measures 0.8 mm. Pancreas: Normal size of the head, body and tail of the pancreas. There is normal echogenicity of the pancreas. There is no demonstrated pancreatic mass or cyst. Right Kidney: Normal size of the right kidney. The right kidney measures 10.7 cm x 4.3 cm x 4.3 cm. Normal renal cortex. The right cortex measures 1.6 cm. There is no demonstrated renal mass or cyst. There is no right hydronephrosis. US/Liver IMPRESSION: Diffuse fatty infiltration the liver. The patient is status post cholecystectomy. Electronically Signed: Valeriano Meier MD at 12:34 EDT ,
== END | disposition home or self-care (01) ==
LOC: US 09:38
DX: R74.01 Elevation of levels of liver transaminase levels (principal)
CPT/HCPCS: 76705

== ENCOUNTER 2022-05-05 15:51 | Inpatient (IN) | payer MEDICARE, SELFPAY ==
[2022-05-05 15:51] VITALS: BP 174/89; PULSE 76; RESP 16; TEMP 36.6; O2SAT 96; BMI 25.6
[2022-05-05 16:27] VITALS: RESP 18
[2022-05-05 17:33] LABS: Absolute Lymphocyte Count 2.41 X10^3/uL (0.83-4.51); Absolute Neutrophil Count 4.7 X10^3/uL (2.0-7.7); Basophil# 0.05 X10^3/uL; Basophil% 0.6 % (0-1); Eosinophil# 0.26 X10^3/uL; Eosinophils% 3.2 % (0-5); Hematocrit 45.3 % (37-47); Hemoglobin 14.2 g/dL (12.0-15.0); Lymphocyte # 2.41 X10^3/ul (0.83-4.51); Lymphocyte % 29.9 % (19-41); Mean Corp Hgb Conc 31.3 g/dL (32-36); Mean Corpuscular Hgb 27.6 pg (27.0-32.0); Mean Platelet Vol. 9.4 fl (6.2-12.0); Monocyte# 0.61 X10^3/uL; Monocyte% 7.6 % (0-10); NRBC Flagged by Analyzer 0 % (0-5); Neutrophil % 58.3 % (47-70); Platelet Count 227 K/mm3 (150-450); RBC Distribution Width CV 14.5 % (11.6-14.6); RBC Distribution Width SD 46.6 fl (35.1-43.9); Red Blood Count 5.15 M/mm3 (4.2-5.4); White Blood Count 8.1 K/mm3 (4.4-11.0)
[2022-05-05 17:42] LABS: International Normalized Ratio 0.9; Prothrombin Time (Protime)PT. 12.1 SECONDS (11.7-14.9)
[2022-05-05 17:43] LABS: Partial Thromboplast Time 28.6 Seconds (24.1-36.2)
[2022-05-05 17:55] LABS: ALB/GLOB Ratio 1.1 RATIO (0.9-2.4); AST(SGOT) 23 U/L (15-37); Alanine Aminotransfer ALT/SGPT 34 U/L (13-56); Albumin, Serum 3.6 g/dL (3.2-5.0); Alkaline Phosphatase 181 U/L (45-117); Anion Gap 6 (5-15); BUN 11 mg/dL (7-18); Chloride 107 mmol/L (98-107); Creatinine, Serum 0.79 mg/dL (0.55-1.02); EST Glomerular Filtration Rate 74 mL/min (>60); Est Glom Filt Rate - Afr Amer 89 mL/min (>60); Estimated Creatinine Clearance 33.12 ml/min; Globulin 3.3 g/dL (2.2-4.2); Glucose 106 mg/dL (74-106); Protein, Total 6.9 g/dL (6.4-8.2); Sodium Level 142 mmol/L (136-145)
[2022-05-05 18:02] VITALS: BP 120/74; BP 122/70; BP 127/60; PULSE 77; PULSE 79; PULSE 91; RESP 17; O2SAT 95
[2022-05-05] MEDS: 0.9% Normal Saline 1,000 ML 1000 ML IV (18:06)
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
[2022-05-05 19:41] VITALS: BP 128/98; PULSE 91; RESP 18; TEMP 35.7; O2SAT 96
[2022-05-05 20:12] VITALS: BP 130/65; PULSE 76; RESP 16; TEMP 36.6; O2SAT 95
[2022-05-05 20:14] VITALS: BMI 26.1
[2022-05-05 20:35] LABS: Magnesium 2.4 mg/dL (1.6-2.6)
[2022-05-05 20:41] VITALS: PULSE 85
[2022-05-05] MEDS: 0.9% Saline Lock 10 ML Syringe IV (20:54)
[2022-05-05] MEDS: 0.9% Normal Saline 1,000 ML 100 ML IV (20:54)
[2022-05-05] MEDS: Levothyroxine 25 MCG TABLET PO (21:37)
[2022-05-05] MEDS: TICAGRELOR 90 MG TABLET PO (21:37)
[2022-05-05] MEDS: Atorvastatin Calcium 10 MG Tablet PO (21:37)
[2022-05-05 22:55] LABS: Hematocrit 37.7 % (37-47)
[2022-05-05] MEDS: Ondansetron 4 MG/2 ML Vial IV (23:34)
[2022-05-06] VITALS (14 sets, daily range): BP systolic 92–112; BP diastolic 45–76; PULSE 79–94; RESP 16–18; TEMP 36.4–37.1; O2SAT 94–96
[2022-05-06 02:37] LABS: Hematocrit 35.4 % (37-47); Hemoglobin 11.1 g/dL (12.0-15.0)
[2022-05-06] MEDS: proCHLORPERazine 10 MG/2 ML Vial 5 MG IV (05:54)
[2022-05-06] MEDS: 0.9% Normal Saline 1,000 ML 100 ML IV ×2 (05:54→15:10)
[2022-05-06] MEDS: 0.9% Saline Lock 10 ML Syringe IV (05:54)
[2022-05-06 06:20] LABS: Absolute Lymphocyte Count 2.38 X10^3/uL (0.83-4.51); Absolute Neutrophil Count 3.5 X10^3/uL (2.0-7.7); Basophil# 0.04 X10^3/uL; Basophil% 0.6 % (0-1); Eosinophil# 0.25 X10^3/uL; Eosinophils% 3.7 % (0-5); Hemoglobin 11.3 g/dL (12.0-15.0); Lymphocyte # 2.38 X10^3/ul (0.83-4.51); Lymphocyte % 35.6 % (19-41); Mean Corp Hgb Conc 31.4 g/dL (32-36); Mean Corpuscular Volume 89.3 fL (81-99); Monocyte# 0.47 X10^3/uL; NRBC Flagged by Analyzer 0 % (0-5); Neutrophil # 3.52 X10^3/uL (2.7-7.7); Neutrophil % 52.7 % (47-70); Platelet Count 213 K/mm3 (150-450); RBC Distribution Width CV 14.6 % (11.6-14.6); RBC Distribution Width SD 47.9 fl (35.1-43.9); Red Blood Count 4.03 M/mm3 (4.2-5.4); White Blood Count 6.7 K/mm3 (4.4-11.0)
[2022-05-06 06:58] LABS: AST(SGOT) 19 U/L (15-37); Alanine Aminotransfer ALT/SGPT 26 U/L (13-56); Albumin, Serum 2.7 g/dL (3.2-5.0); Alkaline Phosphatase 139 U/L (45-117); Anion Gap 7 (5-15); BUN 7 mg/dL (7-18); BUN/Creat Ratio 10.5 RATIO (10-20); Calcium,Total 7.7 mg/dL (8.5-10.1); Chloride 113 mmol/L (98-107); Creatinine, Serum 0.67 mg/dL (0.55-1.02); EST Glomerular Filtration Rate 90 mL/min (>60); Est Glom Filt Rate - Afr Amer 108 mL/min (>60); Estimated Creatinine Clearance 33.12 ml/min; Globulin 2.7 g/dL (2.2-4.2); Glucose 103 mg/dL (74-106); Potassium 4.1 mmol/L (3.5-5.1); Protein, Total 5.4 g/dL (6.4-8.2); Sodium Level 142 mmol/L (136-145)
[2022-05-06] MEDS: Spironolactone 25 MG Tablet 12.5 MG PO (07:51)
[2022-05-06] MEDS: TICAGRELOR 90 MG TABLET PO ×2 (07:51→21:03)
[2022-05-06] MEDS: Aspirin E.C. 81 MG Tablet PO (07:51)
--- NOTE | 2022-05-06 09:10 | PN.HOSP_ITS ---
Subjective Subjective Patient seen and examined. She says she had 3 episodes of rectal bleeding overnight. She admitted to some lightheadedness and dizziness. She denies any abdominal pain. Review of systems is otherwise negative and she has remained hemodynamically stable. Objective Data Objective Data Vital Signs: Vital Signs Temp Pulse Resp BP Pulse Ox O2 Del Method 98.0 F 80 18 103/55 L 94 Room Air 05/06/22 07:44 05/06/22 09:09 05/06/22 07:44 05/06/22 07:44 05/06/22 07:44 05/06/22 07:45 Oxygen Delivery Method Room Air Weight: 142 lb 13.753 oz Body Mass Index (BMI) 26.1 Intake & Output: Intake and Output for Last 24 Hours 05/04/22 05/05/22 05/06/22 23:59 23:59 23:59 Intake Total 1110 / 1110 900 / 900 Balance 1110 / 1110 900 / 900 Lab / Micro Data Result Diagrams: 05/06/22 05:19 05/06/22 05:19 Labs: Laboratory Results - last 24 hr 05/05/22 17:24: WBC 8.1, RBC 5.15, Hgb 14.2, Hct 45.3, MCV 88.0, MCH 27.6, MCHC 31.3 L, RDW Std Deviation 46.6 H, RDW Coeff of Maggi 14.5, Plt Count 227, MPV 9.4, Immature Gran % (Auto) 0.400, Neut % (Auto) 58.3, Lymph % (Auto) 29.9, [place] % (Auto) 7.6, Eos % (Auto) 3.2, Baso % (Auto) 0.6, Absolute Neuts (auto) 4.7, Absolute Lymphs (auto) 2.41, Nucleated RBC % 0 05/05/22 17:24: PT 12.1, INR 0.9, APTT 28.6 05/05/22 17:24: Sodium 142, Potassium 4.0, Chloride 107, Carbon Dioxide 29.0, Anion Gap 6, BUN 11, Creatinine 0.79, Estim Creat Clear Calc 33.12, Est GFR (MDRD) Af Amer 89, Est GFR (MDRD) Non-Af 74, BUN/Creatinine Ratio 14.0, Glucose 106, Calcium 9.0, Total Bilirubin 0.70, AST 23, ALT 34, Alkaline Phosphatase 181 H, Total Protein 6.9, Albumin 3.6, Globulin 3.3, Albumin/Globulin Ratio 1.1 05/05/22 17:24: Magnesium 2.4 05/05/22 22:45: Hgb 12.0, Hct 37.7 05/06/22 02:15: Hgb 11.1 L, Hct 35.4 L 05/06/22 05:19: WBC 6.7, RBC 4.03 L, Hgb 11.3 L, Hct 36.0 L, MCV 89.3, MCH 28.0, MCHC 31.4 L, RDW Std Deviation 47.9 H, RDW Coeff of Maggi 14.6, Plt Count 213, MPV 10.0, Immature Gran % (Auto) 0.400, Neut % (Auto) 52.7, Lymph % (Auto) 35.6, [place] % (Auto) 7.0, Eos % (Auto) 3.7, Baso % (Auto) 0.6, Absolute Neuts (auto) 3.5, Absolute Lymphs (auto) 2.38, Nucleated RBC % 0 05/06/22 05:19: Sodium 142, Potassium 4.1, Chloride 113 H, Carbon Dioxide 22.0, Anion Gap 7, BUN 7, Creatinine 0.67, Estim Creat Clear Calc 33.12, Est GFR (MDRD) Af Amer 108, Est GFR (MDRD) Non-Af 90, BUN/Creatinine Ratio 10.5, Glucose 103, Calcium 7.7 L, Total Bilirubin 0.80, AST 19, ALT 26, Alkaline Phosphatase 139 H, Total Protein 5.4 L, Albumin 2.7 L, Globulin 2.7, Albumin/Globulin Ratio 1.0 Physical Exam Const alert, oriented x3 and no apparent distress HEENT head/scalp atraumatic, moist oral mucous membranes and oropharynx normal Head and Scalp: normocephalic Mouth: oral and palatal mucosa normal Eyes EOMs intact bilaterally and conjunctivae normal Neck no lymphadenopathy and supple Resp normal respiratory effort, no retractions, no use of accessory muscles and clear to auscultation bilaterally Cardio regular rate, regular rhythm, S1 normal heart sound, S2 normal heart sound and no murmurs GI normal to inspection, nondistended, normoactive bowel sounds, soft to palpation, non-tender and non-distended Extremity normal to inspection, full ROM and no clubbing, cyanosis or edema Neuro oriented x3, CN's II-XII intact bilaterally, moves all extremities and no focal motor deficits Sensorium / Orientation: awake and alert Motor Exam: strength 5/5 throughout Psych affect normal Assessment & Plan Assessment/Plan (1) Rectal bleeding: PLAN: Plan #Rectal bleeding, likely due to diverticular bleed * had 3 episodes of bleeding overnight * hemoglobin today is 11.3 * she does have a history of diverticulitis * currently NPO; being hydrated with IVF * gastroenterology consultd; await rec's * check orthostatics * she had colonoscopy in October 2021 which showed moderate diverticulosis and EGD showed reflux esophagitis * on IV PPI * #CAD possible stents * Stents placed in October 2021. On dual antiplatelet therapy. On metoprolol #Hypertension: On spironolactone and metoprolol. IV hydralazine as needed Exam #hyperlipidemia: On statin Statin #hypothyroidism: On Synthroid #GERD: Currently on IV PPI DVT prophylaxis: SCDs Charges/Coding Visit Charges Inpatient E&M: 19849 Subs Hosp L2
--- NOTE | 2022-05-06 10:56 | NURSING ---
Dr Bernard aware of Pts BP. Orders to hold morning dose of metorprolol
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
[2022-05-06] MEDS: Bisacodyl 5 MG Tablet 20 MG PO (13:17)
[2022-05-06] MEDS: Polyethylene Glycol 3350 BOWEL PREP PO (15:10)
[2022-05-06] MEDS: Ensure Clear 120 ML Liquid PO (15:11)
[2022-05-06] MEDS: Levothyroxine 25 MCG TABLET PO (21:03)
[2022-05-06] MEDS: Atorvastatin Calcium 10 MG Tablet PO (21:03)
[2022-05-07] VITALS (23 sets, daily range): BP systolic 90–136; BP diastolic 47–74; PULSE 70–96; RESP 12–18; TEMP 36.6–37.3; O2SAT 92–100; BMI 25.6
[2022-05-07] MEDS: 0.9% Normal Saline 1,000 ML 100 ML IV ×2 (01:37→18:13)
[2022-05-07 06:43] LABS: Thyroid Stim Hormone (TSH) 2.59 uIU/mL (0.358-3.74)
--- NOTE | 2022-05-07 07:49 | PN.HOSP_ITS ---
Subjective Subjective DOS 05/07/22 CC: Blood in stool Ms. Kiser is a 86y/o female who presented 05/05/22 with BRBPR x1 day. Overnight she reports multiple bowel movements with blood and is unsure if this is improving. Abdomen is grumbling but denies any pain. Did have some nausea last night but not this AM. Currently NPO but tolerated clear liquids yesterday. Denies CP or SOB. No headache or changes in vision, no stuffy nose or sore throat. Denies any other complaints this AM. Objective Data Objective Data Vital Signs: Vital Signs Temp Pulse Resp BP Pulse Ox O2 Del Method 99.1 F 88 12 105/48 L 92 Room Air 05/07/22 07:37 05/07/22 07:37 05/07/22 07:37 05/07/22 07:37 05/07/22 07:37 05/07/22 07:37 Oxygen Delivery Method Room Air Weight: 63.6 kg Body Mass Index (BMI) 26.1 Intake & Output: Intake and Output for Last 24 Hours 05/05/22 05/06/22 05/07/22 23:59 23:59 23:59 Intake Total 1110 / 1110 3046.67 / 3046.67 1000 / 1000 Balance 1110 / 1110 3046.67 / 3046.67 1000 / 1000 Lab / Micro Data Result Diagrams: 05/06/22 05:19 05/06/22 05:19 Labs: Laboratory Results - last 24 hr 05/07/22 05:17: TSH 2.59 Physical Exam Const alert and no apparent distress Constitutional Narrative: Oriented HEENT normocephalic and head/scalp atraumatic Eyes Eyes Narrative: EOM grossly intact, anicteric Neck supple Resp normal respiratory effort Resp Narrative: Slight fine crackles at bases bilat Cardio regular rate and regular rhythm GI soft to palpation, non-tender and non-distended GI Narrative: active bowel sounds Extremity Extremity Narrative: Trace LE edema Neuro moves all extremities Neuro Narrative: No overt focal deficits appreciated Psych Psych Narrative: Cooperative Assessment & Plan Assessment/Plan (1) Rectal bleeding: PLAN: Plan #Rectal bleeding, likely due to diverticular bleed * had multiple bleeding episodes overnight * hemoglobin yesterday is 11.3, Am hgb pending * she does have a history of diverticulitis * currently NPO; being hydrated with IVF * gastroenterology consultd; colonoscopy today * she had colonoscopy in October 2021 which showed moderate diverticulosis and EGD showed reflux esophagitis * on IV PPI * #CAD w/ stent placement 10/2021 * Stents placed in October 2021. * Follows with Dr. Cast * On ASA and brillinta #Hypertension: On spironolactone and metoprolol. IV hydralazine as needed Exam #hyperlipidemia: On statin Statin #hypothyroidism: On Synthroid #GERD: Currently on IV PPI DVT prophylaxis: SCDs Time spent >20 minutes Charges/Coding Visit Charges Inpatient E&M: 63438 Subs Hosp L1
[2022-05-07 08:11] LABS: Absolute Lymphocyte Count 2.02 X10^3/uL (0.83-4.51); Absolute Neutrophil Count 3.9 X10^3/uL (2.0-7.7); Basophil# 0.03 X10^3/uL; Basophil% 0.4 % (0-1); Eosinophil# 0.24 X10^3/uL; Eosinophils% 3.6 % (0-5); Hematocrit 33.9 % (37-47); Hemoglobin 10.4 g/dL (12.0-15.0); Lymphocyte # 2.02 X10^3/ul (0.83-4.51); Lymphocyte % 30.1 % (19-41); Mean Corp Hgb Conc 30.7 g/dL (32-36); Mean Corpuscular Hgb 27.8 pg (27.0-32.0); Mean Corpuscular Volume 90.6 fL (81-99); Mean Platelet Vol. 9.8 fl (6.2-12.0); Monocyte# 0.46 X10^3/uL; Monocyte% 6.9 % (0-10); NRBC Flagged by Analyzer 0 % (0-5); Neutrophil # 3.92 X10^3/uL (2.7-7.7); Neutrophil % 58.6 % (47-70); Platelet Count 197 K/mm3 (150-450); RBC Distribution Width CV 14.6 % (11.6-14.6); RBC Distribution Width SD 48.4 fl (35.1-43.9); Red Blood Count 3.74 M/mm3 (4.2-5.4); White Blood Count 6.7 K/mm3 (4.4-11.0)
[2022-05-07 08:25] LABS: AST(SGOT) 19 U/L (15-37); Alanine Aminotransfer ALT/SGPT 26 U/L (13-56); Albumin, Serum 2.7 g/dL (3.2-5.0); Alkaline Phosphatase 132 U/L (45-117); Anion Gap 9 (5-15); BUN 6 mg/dL (7-18); BUN/Creat Ratio 9.7 RATIO (10-20); Calcium,Total 7.8 mg/dL (8.5-10.1); Chloride 113 mmol/L (98-107); Creatinine, Serum 0.62 mg/dL (0.55-1.02); EST Glomerular Filtration Rate 97 mL/min (>60); Est Glom Filt Rate - Afr Amer 118 mL/min (>60); Estimated Creatinine Clearance 33.12 ml/min; Globulin 2.6 g/dL (2.2-4.2); Glucose 93 mg/dL (74-106); Potassium 3.9 mmol/L (3.5-5.1); Protein, Total 5.3 g/dL (6.4-8.2); Sodium Level 145 mmol/L (136-145)
[2022-05-07] MEDS: Metoprolol(XL)Succ 25 MG Tablet 12.5 MG PO (10:09)
[2022-05-07] MEDS: Aspirin E.C. 81 MG Tablet PO (10:10)
--- NOTE | 2022-05-07 10:30 | CASEMGMT ---
RN CM Face to Face with patient for initial transition planning/care coordination assessment. RN CM introduced self and role at [facility]. Patient lying in bed, alert and oriented, at bedside. Patient willing to participate in assessment and is able to answer all questions appropriately. Care providers, pharmacy, and demographics verified. Patient wishes to discharge home, denies need for home health at this time. Patient states she has no further needs or concerns at this time. CM to follow for discharge planning needs that may arise. PCP: Radha Xavier NP Specialists: [employer] exceptional children teacher assistant Preferred Pharmacy: [facility] Insurance: [employer] [facility] Prescription Benefit: yes Living Will/HPOA: yes, Kana Kiser LNOK: Living Arrangements: Patient lives with in a single story home with 5 steps and railing to enter the home. Patient states she is independent at home. Transportation: self, DME/HHC: Patient states she has cane, walker, and shower chair at home. No previous HHC or SNF Disposition Plan: Patient to discharge home with family support and follow-up plans in place. Supriya DURBIN, RN, CM
--- NOTE | 2022-05-07 11:31 | CASEMGMT ---
Social Work SW in to validate AD with pt. Pt confirmed has HCPOA and LW. Pt named , Kana Kiser, as agent. SW informed these documents are not on file at [facility] and informed pt that documents can be brought in and taken to medical records office in future. Pt voiced understanding. HEATHER Mcclendon
[2022-05-07 13:00] LABS: Bedside Glucose 83 mg/dL (74-106)
[2022-05-07] MEDS: Lactated Ringers 1,000 ML 15 ML IV (13:51)
--- NOTE | 2022-05-07 17:22 | OP.COLON_ITS ---
Patient Name: Brandie Kiser Procedure Date: 05/07/2022 4:29 PM Date of : 1935 Age: 86 Procedure: Colonoscopy Indications: Hematochezia Providers: Umberto Garcia DO Medicines: Monitored Anesthesia Care Patient Profile: This is an 86 year old female. Refer to note in patient chart for documentation of history and physical. Last Colonoscopy: within the past 6 months. Complications: No immediate complications. Procedure: Pre-Anesthesia Assessment: - Prior to the procedure, a History and Physical was performed, and patient medications and allergies were reviewed. The patient is competent. The risks and benefits of the procedure and the sedation options and risks were discussed with the patient. All questions were answered and informed consent was obtained. Patient identification and proposed procedure were verified by the physician in the pre-procedure area. Mental Status Examination: alert and oriented. Airway Examination: normal oropharyngeal airway and neck mobility. Respiratory Examination: clear to auscultation. CV Examination: normal. Prophylactic Antibiotics: The patient does not require prophylactic antibiotics. Prior Anticoagulants: The patient has taken no previous anticoagulant or antiplatelet agents. ASA Grade Assessment: III - A patient with severe systemic disease. After reviewing the risks and benefits, the patient was deemed in satisfactory condition to undergo the procedure. The anesthesia plan was to use monitored anesthesia care (MAC). Immediately prior to administration of medications, the patient was re-assessed for adequacy to receive sedatives. The heart rate, respiratory rate, oxygen saturations, blood pressure, adequacy of pulmonary ventilation, and response to care were monitored throughout the procedure. The physical status of the patient was re-assessed after the procedure. After I obtained informed consent, the scope was passed under direct vision. Throughout the procedure, the patient's blood pressure, pulse, and oxygen saturations were monitored continuously. The colonoscope was introduced through the anus and advanced to the terminal ileum. The colonoscopy was performed without difficulty. The patient tolerated the procedure well. The quality of the bowel preparation was good. Scope In: 4:48:08 PM Scope Withdrawal Time 0 hours 22 minutes 48 seconds Scope Out: 5:16:27 PM Total Procedure Duration Time 0 hours 28 minutes 19 seconds Findings: The perianal and digital rectal examinations were normal. Hematin (altered blood/nrozdd-cmganr-iyqr material) was found in the recto-sigmoid colon and in the sigmoid colon. Scattered small and large-mouthed diverticula were found in the recto-sigmoid colon, sigmoid colon and descending colon. There was active bleeding coming from the diverticular opening. Coagulation for hemostasis using bipolar probe was successful. Estimated blood loss was minimal. A small amount of stool was found in the rectum, in the sigmoid colon, in the ascending colon and in the cecum. The terminal ileum appeared normal. Impression: - Blood in the recto-sigmoid colon and in the sigmoid colon. - Mild diverticulosis in the recto-sigmoid colon, in the sigmoid colon and in the descending colon. There was active bleeding coming from the diverticular opening. Treated with bipolar cautery. - Stool in the rectum, in the sigmoid colon, in the ascending colon and in the cecum. - The examined portion of the ileum was normal. - No specimens collected. Recommendation: - [facility]. - Resume regular diet. - Continue present medications. - No recommendation at this time regarding repeat colonoscopy due to age. Procedure Code(s): --- Professional --- 61991, Colonoscopy, flexible; with control of bleeding, any method CPT copyright 2017 [employer]. All rights reserved. The codes documented in this report are preliminary and upon medical billing coder review may be revised to meet current compliance requirements. Umberto Garcia DO 05/07/2022 5:22:04 PM This report has been signed electronically. Number of Addenda: 0 Note Initiated On: 05/07/2022 4:29 PM
--- NOTE | 2022-05-07 17:22 | OP.CCLET_ITS ---
05/07/2022 Radha Xavier Support Services Specialist, Support Services Specialist-c Re : Colonoscopy procedure for Brandie Tavarez Morenita This procedure was performed on Saturday, May 07, 2022. My impressions and recommendations are as follows: Impressions : - Blood in the recto-sigmoid colon and in the sigmoid colon. - Mild diverticulosis in the recto-sigmoid colon, in the sigmoid colon and in the descending colon. There was active bleeding coming from the diverticular opening. Treated with bipolar cautery. - Stool in the rectum, in the sigmoid colon, in the ascending colon and in the cecum. - The examined portion of the ileum was normal. - No specimens collected. Recommendations : - [facility] patient to [facility] for [facility] care. - Resume regular diet. - Continue present medications. - No recommendation at this time regarding repeat colonoscopy due to age. My findings are described in the full procedure note, which is enclosed. If I can be of further assistance, please feel free to contact me at . Sincerely, Umberto Garcia DO 05/07/2022 5:22:04 PM This report has been signed electronically.
[2022-05-07] MEDS: Levothyroxine 25 MCG TABLET PO (22:42)
[2022-05-07] MEDS: Atorvastatin Calcium 10 MG Tablet PO (22:42)
[2022-05-08] VITALS (13 sets, daily range): BP systolic 112–124; BP diastolic 61–74; PULSE 74–95; RESP 14–18; TEMP 36.6–37.3; O2SAT 92–97
[2022-05-08] MEDS: Furosemide 40 MG/4 ML Vial IV (00:41)
[2022-05-08] MEDS: 0.9% Saline Lock 10 ML Syringe IV ×2 (00:46→05:55)
--- NOTE | 2022-05-08 07:00 | PN_ITS ---
Subjective Subjective Patient underwent a colonoscopy yesterday for an acute GI bleed. She was discovered to have diverticular bleed. She has no bleeding overnight. She has been off anticoagulation. She is tolerating a diet. Objective Data Objective Data Vital Signs: Vital Signs Temp Pulse Resp BP Pulse Ox O2 Del Method 99.1 F 81 14 120/74 97 Room Air 05/08/22 14:48 05/08/22 14:48 05/08/22 14:48 05/08/22 14:48 05/08/22 16:14 05/08/22 16:14 Oxygen Delivery Method Room Air Weight: 139 lb 12.369 oz Body Mass Index (BMI) 25.6 Intake & Output: Intake and Output for Last 24 Hours 05/06/22 05/07/22 05/08/22 23:59 23:59 23:59 Intake Total 3046.67 / 3046.67 2965.58 / 2965.58 2020 / 2020 Output Total 1400 / 1400 Balance 3046.67 / 3046.67 2965.58 / 2965.58 620 / 620 Lab / Micro Data Result Diagrams: 05/08/22 07:28 05/08/22 07:28 Labs: Laboratory Results - last 24 hr 05/07/22 20:30: Blood Type A NEGATIVE, Antibody Screen NEGATIVE, Crossmatch See Detail 05/08/22 07:28: WBC 9.9, RBC 4.97, Hgb 14.3, Hct 44.6, MCV 89.7, MCH 28.8, MCHC 32.1, RDW Std Deviation 47.5 H, RDW Coeff of Maggi 14.6, Plt Count 184, MPV 9.5, Immature Gran % (Auto) 0.500, Neut % (Auto) 71.3 H, Lymph % (Auto) 19.1, [place] % (Auto) 6.3, Eos % (Auto) 2.4, Baso % (Auto) 0.4, Absolute Neuts (auto) 7.1, Absolute Lymphs (auto) 1.89, Nucleated RBC % 0 05/08/22 07:28: Sodium 142, Potassium 3.5, Chloride 108 H, Carbon Dioxide 28.0, Anion Gap 6, BUN 5 L, Creatinine 0.69, Estim Creat Clear Calc 33.12, Est GFR (MDRD) Af Amer 104, Est GFR (MDRD) Non-Af 86, BUN/Creatinine Ratio 7.2 L, Glucose 94, Calcium 8.2 L, Total Bilirubin 1.70 H, AST 24, ALT 29, Alkaline Phosphatase 149 H, Total Protein 6.2 L, Albumin 3.2, Globulin 3.0, Albumin/Globulin Ratio 1.1 Physical Exam Const alert and no apparent distress Constitutional Narrative: Oriented HEENT normocephalic and head/scalp atraumatic Eyes Eyes Narrative: EOM grossly intact, anicteric Neck supple Resp normal respiratory effort and clear to auscultation bilaterally Cardio regular rate and regular rhythm GI soft to palpation, non-tender and non-distended Extremity Extremity Narrative: No edema appreciated Neuro moves all extremities Neuro Narrative: No overt focal deficits appreciated Psych Psych Narrative: Cooperative Assessment & Plan Assessment/Plan (1) GI bleed: PLAN: Recurrent diverticular bleeding in the setting of antiplatelets status post HI and PTCA with stenting. She is okay to go back on antiplatelet therapy as she recently underwent a percutaneous procedure approximately 6 months ago. Hopefully she will be able [facility] and approximately 2 to 3 months. I would have her see her circulation assistant for recommendations regarding her anti platelet therapy. She should undergo a capsule endoscopy to make sure there is no other site of blood loss anemia in the small bowel. Charges/Coding Visit Charges Inpatient E&M: 41826 Subs Hosp L2
--- NOTE | 2022-05-08 07:18 | PN.HOSP_ITS ---
Subjective Subjective DOS 05/08/22 CC: I had to get more blood last night Reports being tired this AM. Denied noticing any bleeding overnight but endorsed getting 2u PRBC over night had colonoscopy completed yesterday 05/07 which showe d diverticular bleed which was treated with bipolar cautery. Pt denies any abd pain, no chest pain or SOB. No headache or changes in vision. No nausea. Objective Data Objective Data Vital Signs: Vital Signs Temp Pulse Resp BP Pulse Ox O2 Del Method 98.1 F 75 18 112/61 93 Room Air 05/08/22 05:51 05/08/22 06:03 05/08/22 05:51 05/08/22 05:51 05/08/22 05:51 05/08/22 05:51 Oxygen Delivery Method Room Air Weight: 63.4 kg Body Mass Index (BMI) 25.6 Intake & Output: Intake and Output for Last 24 Hours 05/06/22 05/07/22 05/08/22 23:59 23:59 23:59 Intake Total 3046.67 / 3046.67 2965.58 / 2965.58 1080 / 1080 Output Total 1400 / 1400 Balance 3046.67 / 3046.67 2965.58 / 2965.58 -320 / -320 Lab / Micro Data Result Diagrams: 05/07/22 05:17 05/07/22 05:17 Labs: Laboratory Results - last 24 hr 05/07/22 05:17: WBC 6.7, RBC 3.74 L, Hgb 10.4 L, Hct 33.9 L, MCV 90.6, MCH 27.8, MCHC 30.7 L, RDW Std Deviation 48.4 H, RDW Coeff of Maggi 14.6, Plt Count 197, MPV 9.8, Immature Gran % (Auto) 0.400, Neut % (Auto) 58.6, Lymph % (Auto) 30.1, [place] % (Auto) 6.9, Eos % (Auto) 3.6, Baso % (Auto) 0.4, Absolute Neuts (auto) 3.9, Absolute Lymphs (auto) 2.02, Nucleated RBC % 0 05/07/22 05:17: Sodium 145, Potassium 3.9, Chloride 113 H, Carbon Dioxide 23.0, Anion Gap 9, BUN 6 L, Creatinine 0.62, Estim Creat Clear Calc 33.12, Est GFR (MDRD) Af Amer 118, Est GFR (MDRD) Non-Af 97, BUN/Creatinine Ratio 9.7 L, Glucose 93, Calcium 7.8 L, Total Bilirubin 0.80, AST 19, ALT 26, Alkaline Phosphatase 132 H, Total Protein 5.3 L, Albumin 2.7 L, Globulin 2.6, Albumin/Globulin Ratio 1.0 05/07/22 12:43: POC Glucose 83 05/07/22 20:30: Blood Type A NEGATIVE, Antibody Screen NEGATIVE, Crossmatch See Detail Physical Exam Const alert and no apparent distress Constitutional Narrative: Oriented HEENT normocephalic and head/scalp atraumatic Eyes Eyes Narrative: EOM grossly intact, anicteric Neck supple Resp normal respiratory effort and clear to auscultation bilaterally Cardio regular rate and regular rhythm GI soft to palpation, non-tender and non-distended Extremity Extremity Narrative: No edema appreciated Neuro moves all extremities Neuro Narrative: No overt focal deficits appreciated Psych Psych Narrative: Cooperative Assessment & Plan Assessment/Plan (1) Rectal bleeding: PLAN: Plan #Rectal bleeding, likely due to diverticular bleed * COlonosopy w/ diverticular bleed 05/07 treated with cautery and given 2u overnight * awaitng AM hgb * Pt denied overnight bleeding * If hgb stable, likely d/c today * is hemodynamically stable * appreciate GI recs * she had colonoscopy in October 2021 which showed moderate diverticulosis and EGD showed reflux esophagitis * on IV PPI #CAD w/ stent placement 10/2021 * Stents placed in October 2021. * Follows with Dr. Cast * On ASA and brillinta #Hypertension: On spironolactone and metoprolol. IV hydralazine as needed Exam #hyperlipidemia: On statin Statin #hypothyroidism: On Synthroid #GERD: Currently on IV PPI DVT prophylaxis: SCDs Charges/Coding Visit Charges Inpatient E&M: 42561 Subs Hosp L2
[2022-05-08 07:44] LABS: Absolute Lymphocyte Count 1.89 X10^3/uL (0.83-4.51); Absolute Neutrophil Count 7.1 X10^3/uL (2.0-7.7); Basophil# 0.04 X10^3/uL; Basophil% 0.4 % (0-1); Eosinophil# 0.24 X10^3/uL; Eosinophils% 2.4 % (0-5); Hematocrit 44.6 % (37-47); Hemoglobin 14.3 g/dL (12.0-15.0); Lymphocyte # 1.89 X10^3/ul (0.83-4.51); Lymphocyte % 19.1 % (19-41); Mean Corp Hgb Conc 32.1 g/dL (32-36); Mean Corpuscular Hgb 28.8 pg (27.0-32.0); Mean Corpuscular Volume 89.7 fL (81-99); Mean Platelet Vol. 9.5 fl (6.2-12.0); Monocyte# 0.62 X10^3/uL; Monocyte% 6.3 % (0-10); NRBC Flagged by Analyzer 0 % (0-5); Neutrophil # 7.05 X10^3/uL (2.7-7.7); Neutrophil % 71.3 % (47-70); Platelet Count 184 K/mm3 (150-450); RBC Distribution Width CV 14.6 % (11.6-14.6); RBC Distribution Width SD 47.5 fl (35.1-43.9); Red Blood Count 4.97 M/mm3 (4.2-5.4); White Blood Count 9.9 K/mm3 (4.4-11.0)
[2022-05-08] MEDS: Aspirin E.C. 81 MG Tablet PO (08:16)
[2022-05-08 08:17] LABS: ALB/GLOB Ratio 1.1 RATIO (0.9-2.4); AST(SGOT) 24 U/L (15-37); Alanine Aminotransfer ALT/SGPT 29 U/L (13-56); Albumin, Serum 3.2 g/dL (3.2-5.0); Alkaline Phosphatase 149 U/L (45-117); Anion Gap 6 (5-15); BUN 5 mg/dL (7-18); BUN/Creat Ratio 7.2 RATIO (10-20); Calcium,Total 8.2 mg/dL (8.5-10.1); Chloride 108 mmol/L (98-107); Creatinine, Serum 0.69 mg/dL (0.55-1.02); EST Glomerular Filtration Rate 86 mL/min (>60); Est Glom Filt Rate - Afr Amer 104 mL/min (>60); Estimated Creatinine Clearance 33.12 ml/min; Glucose 94 mg/dL (74-106); Potassium 3.5 mmol/L (3.5-5.1); Protein, Total 6.2 g/dL (6.4-8.2); Sodium Level 142 mmol/L (136-145)
[2022-05-08] MEDS: Ensure Clear 120 ML Liquid PO ×2 (08:19→12:06)
[2022-05-08] MEDS: TICAGRELOR 90 MG TABLET PO (09:16)
[2022-05-08] MEDS: Metoprolol(XL)Succ 25 MG Tablet 12.5 MG PO (09:16)
[2022-05-08] MEDS: Spironolactone 25 MG Tablet 12.5 MG PO (09:16)
[2022-05-08] MEDS: Docusate Sodium 100 MG Capsule 200 MG PO (10:18)
--- NOTE | 2022-05-08 11:14 | CASEMGMT ---
RN CM in to pt room, pt sitting up in chair. Pt denies any homegoing needs. She is ready for dc.
--- NOTE | 2022-05-08 11:34 | DCINST_ITS ---
Discharge Instructions Diet Discharge Diet: No restrictions Activity Discharge Activity: Return to Normal Activity Follow Up Care Test Results: Test results from this visit will be discussed in further detail at your follow- up appointment, if applicable. Discharge Plan Admission Admit Date/Time: 05/06/22 14:21 Primary Reason for Your Visit: Rectal bleeding Attending Provider: Eloisa Delgado Primary Care Provider: Radha Xavier NP Consulting Providers: Joan Davison ; Jennifer Bernard Instructions Patient Instructions: ED Lower GI Bleeding (Stable) Additional Instructions / Restrictions: 1. You were admitted for GI bleeding and had a colonoscopy which identified a source of bleeding and this was treated 2. Please follow up with GI, Dr. Garcia, upon discharge for further follow up. 3. Continue home medications 4. Continue to follow with your [employer] upon discharge, you have been continued on your aspirin and Brilinta 5. -Please call your primary care provider's office upon discharge to schedule a hospital follow up within 1 week. -For any concerning signs or symptoms please call 911 or proceed to the nearest emergency department Discharge Orders/Prescriptions Prescriptions: Continued sennosides-docusate sodium [Senexon-S] 8.6-50 mg tablet 1 tab-cap PO QHS pantoprazole 40 mg tablet,delayed release (DR/EC) 40 mg PO DAILY atorvastatin 10 mg Tablet 10 mg PO QHS Qty: 60 3RF metoprolol succinate 25 mg Tablet Extended Release 24 Hr 12.5 mg PO DAILY Qty: 60 3RF Brilinta 90 mg Tablet 90 mg PO BID Qty: 180 3RF levothyroxine [Synthroid] 25 mcg tablet 25 mcg PO QHS aspirin 81 mg Tablet,Delayed Release (Dr/Ec) 81 mg PO BREAKFAST 30 Days Qty: 30 0RF spironolactone 25 mg tablet 12.5 mg PO DAILY 30 Days Qty: 15 0RF cyanocobalamin (vitamin B-12) 1,000 mcg/mL solution 1,000 mcg subcut QWEEK Label Comments: INJECT 1 ML SUBCUTANEOUSLY ONCE A WEEK DISPENSE WITH TB SYRINGE/WITH 5/8 NEEDLE Rx Instructions: Vitamin Plus Low Iron 27 mg iron- 1 mg tablet 1 tab PO DAILY Label Comments: TAKE 1 TABLET BY MOUTH EVERY DAY ascorbic acid (vitamin C) [Vitamin C] 1,000 mg Tablet 1,000 mg PO QHS Referrals / Follow Up: Umberto Garcia DO [Med Staff - Active Staff] - Within 2 Weeks Radha Xavier NP, FURS SALESPERSON-C [Primary Care Provider] - Bea Childress PA [Med Staff - Adv Practice Prof] - Within 2 Weeks (Please follow up with your Cardiology office upon discharge for continuity of care) Disposition Disposition (needs filled in before D/C Order can be placed): Home, Self Care
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
== END 2022-05-08 16:17 | disposition home or self-care (01) | DRG 378 ==
LOC: ED 19:40 → MS3 20:18
PROVIDERS: Anesthesiology; Internal Medicine Gastroenterology; Admitting Provider Family Medicine; Emergency Provider Emergency Medicine; Visit Provider Internal Medicine
PROC: 0DJD8ZZ Inspection of Lower Intestinal Tract, Via Natural or Artificial Opening Endoscopic (ICD-10-PCS; CPT 45378; principal; 2022-05-07 13:50)
DX: K57.31 Diverticulosis of large intestine without perforation or abscess with bleeding (principal); D62 Acute posthemorrhagic anemia; E03.9 Hypothyroidism, unspecified; I10 Essential (primary) hypertension; K21.00 Gastro-esophageal reflux disease with esophagitis, without bleeding; I25.10 Atherosclerotic heart disease of native coronary artery without angina pectoris; E78.5 Hyperlipidemia, unspecified; R53.1 Weakness; Z79.82 Long term (current) use of aspirin; Z79.899 Other long term (current) drug therapy; Z79.890 Hormone replacement therapy; Z79.01 Long term (current) use of 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; Z79.02 Long term (current) use of antithrombotics/antiplatelets
CPT/HCPCS: 36415; 80053; 82962; 83735; 84443; 85014; 85018; 85025; 85610; 85730; 86850; 86900; 86901; 86920; 86922; 97802; 99285; J7030; J7040; J7120; P9016; A4216; J1940; J2405

== ENCOUNTER 2022-06-15 11:01 | Outpatient (CLI) | payer MEDICARE, SELFPAY ==
--- NOTE | 2022-06-15 11:05 | ART_ITS ---
Reason For Study: Decreased pedal pulses Procedure A bilateral lower extremity continuous wave Doppler with analog waveform analysis,segmental pressures,and ankle brachial indexes without exercise. Left Segmental Pressures Left brachial= 113mmHg. Left posterior tibial artery = 163mmHg. Left dorsalis pedis artery = 137mmHg. The left posterior tibial artery waveforms are triphasic. The left dorsalis pedis waveforms are triphasic. Right Segmental Pressures Right brachial= 115mmHg. Right posterior tibial artery = >254mmHg. Right dorsalis pedis artery = 126mmHg. The right posterior tibial artery waveforms are triphasic. The right dorsalis pedis waveforms are biphasic. Indices The right resting ankle brachial index is 1.10. The right ankle brachial index by the posterior tibial artery is -NC-. The right ankle brachial index by the dorsalis pedis is 1.10. The left resting ankle brachial index is 1.42. The left ankle brachial index by the posterior tibial artery is 1.42. The left ankle brachial index by the dorsalis pedis is 1.19. VL/Lower Ext Art Exam w/o Exercis Interpretation Summary Right GAL 1.1, normal. Doppler/PVR waveforms of the right leg normal at rest. Left GAL 1.42, normal. Doppler/PVR waveforms of the left leg normal at rest. Ordering Physician: Bea Childress Referring Physician: Radha Xavier Performed By: Molly Choudhary RVT, RDCS
== END 2022-06-15 23:59 | disposition home or self-care (01) ==
LOC: CVS 11:04
PROVIDERS: Referring Provider Physician Assistant Medical; Visit Provider Physician Assistant Medical
DX: R09.89 Other specified symptoms and signs involving the circulatory and respiratory systems (principal)
CPT/HCPCS: 93923

== ENCOUNTER → 2022-08-09 | Outpatient (CLI) | payer MEDICARE, SELFPAY ==
--- NOTE | 2022-08-09 10:58 | RAD_ITS ---
EXAM: XR ABDOMEN, 1 VIEW CLINICAL INDICATION: abd pain TECHNIQUE: Frontal supine view of the abdomen/pelvis. This report was created using [employer] report generation technology. COMPARISON: None. FINDINGS: LIMITATIONS: Limited assessment for free intraperitoneal air. LOWER THORAX: No acute pathology. GASTROINTESTINAL TRACT: Unremarkable. Non-obstructive. No bowel or stomach distention. Normal bowel gas pattern. ORGANS: Unremarkable as visualized. No organomegaly. No abnormal calcifications. BONES/JOINTS: Diffuse osteopenia. L3-L5 posterior osseous metallic fusion with no hardware complications. No acute or healing fracture or malalignment. No suspicious lytic or sclerotic lesions of bone. Question circumscribed cystic lesion at the inferomedial aspect of the right humeral head measuring up to 1.9 cm. SOFT TISSUES: Soft tissues are normal. OTHER FINDINGS: No suspicious calcifications. RAD/Abdomen Single View IMPRESSION: No acute disease or bowel obstruction. Electronically Signed: Ramon Akins MD at 23:51 EST ,
== END | disposition home or self-care (01) ==
LOC: RAD 10:44
PROVIDERS: Visit Provider Internal Medicine Gastroenterology
DX: M85.80 Other specified disorders of bone density and structure, unspecified site (principal); K92.2 Gastrointestinal hemorrhage, unspecified
CPT/HCPCS: 74018

== ENCOUNTER 2023-04-07 22:51 | Emergency (ER) | payer MEDICARE, SELFPAY ==
[2023-04-07 22:52] VITALS: BP 170/90; PULSE 80; RESP 18; TEMP 36.8; O2SAT 96; BMI 27.3
--- NOTE | 2023-04-07 23:04 | CT_ITS ---
STUDY: CT ABDOMEN AND PELVIS WITH CONTRAST REASON FOR EXAM: Female, 87 years old. Abdominal pain and RADIATION DOSAGE (If Supplied By Facility): CTDIvol = ( 20.90 ) mGy, DLP = ( 821.48 ) mGycm TECHNIQUE: Spiral CT imaging of the abdomen and pelvis was performed with intravenous contrast material (100mL Isovue-370 / ), followed by coronal and sagittal reformatting. Individualized dose optimization techniques were used for this CT. COMPARISON: No relevant priors. FINDINGS: LOWER CHEST: Mild bilateral dependent atelectasis versus scar formation at the lung bases. Normal heart. Normal pericardium. LIVER: No focal parenchymal lesion. Mild central intrahepatic biliary duct dilatation. GALLBLADDER AND BILIARY TREE: Gallbladder is surgically absent. No fluid collection within the gallbladder fossa. Normal biliary ductal system. SPLEEN: Normal PANCREAS: Normal ADRENAL GLANDS: Normal KIDNEYS AND URETERS: Hypoattenuated lesions noted within both kidneys, some of which measure near water density and others which are too small to characterize. No hydronephrosis. BOWEL: Small hiatal hernia. Stomach is otherwise unremarkable. Normal small bowel. Moderate diffuse diverticular disease of the colon without localized inflammation. PERITONEUM: No free intraperitoneal air or fluid. No intra-abdominal fluid collection. LYMPH NODES: No mesenteric, retroperitoneal, or pelvic lymphadenopathy. VESSELS: Normal URINARY BLADDER: Normal REPRODUCTIVE ORGANS: Normal ABDOMINAL WALL: Normal BONES: Posterior spinal fusion instrumentation noted. Mild multilevel degenerative changes in the spine. CT/Abdomen/Pelvis W IV Cont ONLY IMPRESSION: 1. No acute intra-abdominal abnormality 2. Diffuse colonic diverticulosis without evidence of acute diverticulitis. 3. Hypoattenuated lesions within both kidneys, some of which measure near water density and others which are too small to characterize. Dedicated MR imaging is recommended for further evaluation. 4. Small hiatal hernia. Electronically Signed: Brooks Vasquez MD at 0:23 EDT ,
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
[2023-04-07] MEDS: 0.9% Normal Saline (1000mL) 1,000 ML 1000 ML IV (23:21)
[2023-04-07 23:27] LABS: Absolute Lymphocyte Count 2.72 X10^3/uL (0.83-4.51); Absolute Neutrophil Count 6.3 X10^3/uL (2.0-7.7); Basophil# 0.05 X10^3/uL; Basophil% 0.5 % (0-1); Eosinophil# 0.21 X10^3/uL; Eosinophils% 2.1 % (0-5); Hematocrit 47.5 % (37-47); Hemoglobin 14.9 g/dL (12.0-15.0); Lymphocyte # 2.72 X10^3/ul (0.83-4.51); Lymphocyte % 27.6 % (19-41); Mean Corp Hgb Conc 31.4 g/dL (32-36); Mean Corpuscular Hgb 28.1 pg (27.0-32.0); Mean Corpuscular Volume 89.6 fL (81-99); Mean Platelet Vol. 9.5 fl (6.2-12.0); Monocyte# 0.53 X10^3/uL; Monocyte% 5.4 % (0-10); NRBC Flagged by Analyzer 0 % (0-5); Neutrophil # 6.25 X10^3/uL (2.7-7.7); Neutrophil % 63.6 % (47-70); Platelet Count 273 K/mm3 (150-450); RBC Distribution Width CV 13.4 % (11.6-14.6); RBC Distribution Width SD 43.9 fl (35.1-43.9); White Blood Count 9.8 K/mm3 (4.4-11.0)
[2023-04-07 23:43] LABS: ALB/GLOB Ratio 1.1 RATIO (0.9-2.4); AST(SGOT) 17 U/L (15-37); Alanine Aminotransfer ALT/SGPT 29 U/L (13-56); Albumin, Serum 3.7 g/dL (3.2-5.0); Alkaline Phosphatase 131 U/L (45-117); Anion Gap 3 (5-15); BUN 13 mg/dL (7-18); Calcium,Total 8.6 mg/dL (8.5-10.1); Chloride 108 mmol/L (98-107); Creatinine, Serum 0.93 mg/dL (0.55-1.02); EST Glomerular Filtration Rate 61 mL/min (>60); Est Glom Filt Rate - Afr Amer 74 mL/min (>60); Estimated Creatinine Clearance 34.98 ml/min; Globulin 3.3 g/dL (2.2-4.2); Glucose 120 mg/dL (74-106); Lipase 95 U/L (13-75); Potassium 3.9 mmol/L (3.5-5.1); Sodium Level 138 mmol/L (136-145)
[2023-04-08 00:23] VITALS: BP 130/70; PULSE 76; RESP 16; O2SAT 95
[2023-04-08 02:22] VITALS: BP 135/86; PULSE 81; RESP 15; O2SAT 94
== END 2023-04-08 02:38 | disposition home or self-care (01) ==
PROVIDERS: Emergency Provider Student in an Organized Health Care Education/Training Program; Visit Provider Student in an Organized Health Care Education/Training Program
DX: K92.2 Gastrointestinal hemorrhage, unspecified (principal); I10 Essential (primary) hypertension; I25.10 Atherosclerotic heart disease of native coronary artery without angina pectoris; E03.9 Hypothyroidism, unspecified; Z79.899 Other long term (current) drug therapy; R60.9 Edema, unspecified; Z79.01 Long term (current) use of 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; Z90.49 Acquired absence of other specified parts of digestive tract; Z95.5 Presence of coronary angioplasty implant and graft
CPT/HCPCS: 74177; 80053; 83690; 85025; 86850; 86900; 86901; 96360; 96361; 99284; J7030; Q9967; A4216

== ENCOUNTER 2023-04-08 17:41 | Observation (INO) | payer MEDICARE, SELFPAY ==
[2023-04-08 17:43] VITALS: BP 137/87; PULSE 85; RESP 16; TEMP 36.1; O2SAT 97; BMI 27.3
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
[2023-04-08 18:28] LABS: Absolute Lymphocyte Count 2.33 X10^3/uL (0.83-4.51); Absolute Neutrophil Count 6.4 X10^3/uL (2.0-7.7); Basophil# 0.02 X10^3/uL; Basophil% 0.2 % (0-1); Eosinophil# 0.14 X10^3/uL; Eosinophils% 1.5 % (0-5); Hematocrit 40.9 % (37-47); Hemoglobin 12.9 g/dL (12.0-15.0); Lymphocyte # 2.33 X10^3/ul (0.83-4.51); Lymphocyte % 24.9 % (19-41); Mean Corp Hgb Conc 31.5 g/dL (32-36); Mean Corpuscular Hgb 27.6 pg (27.0-32.0); Mean Corpuscular Volume 87.6 fL (81-99); Mean Platelet Vol. 9.5 fl (6.2-12.0); Monocyte# 0.44 X10^3/uL; Monocyte% 4.7 % (0-10); NRBC Flagged by Analyzer 0 % (0-5); Neutrophil # 6.35 X10^3/uL (2.7-7.7); Platelet Count 241 K/mm3 (150-450); RBC Distribution Width CV 13.6 % (11.6-14.6); RBC Distribution Width SD 43.8 fl (35.1-43.9); Red Blood Count 4.67 M/mm3 (4.2-5.4); White Blood Count 9.4 K/mm3 (4.4-11.0)
[2023-04-08] MEDS: 0.9% Normal Saline (1000mL) 1,000 ML 150 ML IV (18:28)
[2023-04-08 18:40] LABS: Partial Thromboplast Time 26.3 Seconds (24.1-36.2)
[2023-04-08 18:42] LABS: Anion Gap 6 (5-15); BUN 10 mg/dL (7-18); BUN/Creat Ratio 13.7 RATIO (10-20); Calcium,Total 8.6 mg/dL (8.5-10.1); Chloride 108 mmol/L (98-107); Creatinine, Serum 0.73 mg/dL (0.55-1.02); EST Glomerular Filtration Rate 81 mL/min (>60); Est Glom Filt Rate - Afr Amer 97 mL/min (>60); Estimated Creatinine Clearance 32.53 ml/min; Glucose 98 mg/dL (74-106); Sodium Level 139 mmol/L (136-145)
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
[2023-04-08 22:50] VITALS: BMI 27.2
[2023-04-08] MEDS: 0.9% Normal Saline (1000mL) 1,000 ML 75 ML IV (23:25)
[2023-04-08] MEDS: Bisacodyl 5 MG Tablet 10 MG PO (23:25)
[2023-04-08 23:31] VITALS: BP 136/83; PULSE 96; RESP 16; TEMP 36.7; O2SAT 98
[2023-04-09] VITALS (7 sets, daily range): BP systolic 115–150; BP diastolic 59–69; PULSE 69–75; RESP 16–17; TEMP 36.1–36.9; O2SAT 93–98
[2023-04-09 00:28] LABS: Hematocrit 37.6 % (37-47); Hemoglobin 11.6 g/dL (12.0-15.0)
[2023-04-09] MEDS: Levothyroxine 25 MCG TABLET PO (04:45)
[2023-04-09 06:49] LABS: Absolute Lymphocyte Count 1.94 X10^3/uL (0.83-4.51); Absolute Neutrophil Count 4.9 X10^3/uL (2.0-7.7); Basophil# 0.04 X10^3/uL; Basophil% 0.5 % (0-1); Eosinophil# 0.25 X10^3/uL; Eosinophils% 3.3 % (0-5); Hematocrit 38.4 % (37-47); Hemoglobin 11.9 g/dL (12.0-15.0); Lymphocyte # 1.94 X10^3/ul (0.83-4.51); Lymphocyte % 25.5 % (19-41); Mean Corpuscular Volume 90.4 fL (81-99); Mean Platelet Vol. 9.7 fl (6.2-12.0); Monocyte# 0.47 X10^3/uL; Monocyte% 6.2 % (0-10); NRBC Flagged by Analyzer 0 % (0-5); Neutrophil # 4.88 X10^3/uL (2.7-7.7); Platelet Count 213 K/mm3 (150-450); RBC Distribution Width CV 13.6 % (11.6-14.6); RBC Distribution Width SD 45.6 fl (35.1-43.9); Red Blood Count 4.25 M/mm3 (4.2-5.4); White Blood Count 7.6 K/mm3 (4.4-11.0)
[2023-04-09 07:10] LABS: Anion Gap 4 (5-15); BUN 10 mg/dL (7-18); BUN/Creat Ratio 15.9 RATIO (10-20); Calcium,Total 8.3 mg/dL (8.5-10.1); Chloride 113 mmol/L (98-107); Creatinine, Serum 0.63 mg/dL (0.55-1.02); EST Glomerular Filtration Rate 96 mL/min (>60); Est Glom Filt Rate - Afr Amer 116 mL/min (>60); Estimated Creatinine Clearance 32.53 ml/min; Glucose 92 mg/dL (74-106); Potassium 3.8 mmol/L (3.5-5.1); Sodium Level 143 mmol/L (136-145)
[2023-04-09 07:23] LABS: Thyroid Stim Hormone (TSH) 2.57 uIU/mL (0.358-3.74)
[2023-04-09] MEDS: 0.9% Normal Saline (1000mL) 1,000 ML 75 ML IV ×2 (10:27→22:36)
[2023-04-09] MEDS: Metoprolol(XL)Succ 25 MG Tablet 12.5 MG PO (10:27)
[2023-04-09] MEDS: Spironolactone 25 MG Tablet 12.5 MG PO (10:27)
--- NOTE | 2023-04-09 11:14 | CASEMGMT ---
Advanced Directive Validation Reviewed paper chart and EMR. Unable to find any advanced directives. Met with patient in room, introducing to self and social work role. Patient reports to have POAHC and Living Will documents in place with patient's dock attendant down in [facility]. Patient reports her of 23 years, Kana, is the POAHC. Patient declined for this handbook writer to reach out to the dock attendant for a copy of the directives. Patient states will get a copy and have at home, to bring in for any any future visits to [facility]. During visit, patient tearful and talked about stressor related to a aunts estate and family causing drama. Supportive listening offered. Plan: Patient states will get a copy of her directives and bring in. For home going, patient reports plan to return home when cleared by doctors. -ESTEBAN Yuan
[2023-04-09 12:29] LABS: Hematocrit 41.5 % (37-47)
--- NOTE | 2023-04-09 13:04 | CT_ITS ---
STUDY: CTA OF THE ABDOMEN AND PELVIS REASON FOR EXAM: Female, 87 years old. gi bleed RADIATION DOSAGE (If Supplied By Facility): CTDIvol = ( 20.29 ) mGy, DLP = ( 599.89 ) mGycm TECHNIQUE: Axial CT angiography multi-detector data acquisition was obtained from the to the following intravenous administration of IV 100mL Isovue-300. Axial images and MIP images were reconstructed from the axial data set. Post-processing of the angiographic images was performed, with multiplanar reformation and 3D reconstruction. Individualized dose optimization techniques were used for this CT. TECHNICAL QUALITY: Good COMPARISON: CT of abdomen and pelvis dated April 07, 2023 Descriptors of Narrowing: None (0%) Mild (< 50%) Moderate (50-70%) Severe (70-90%) Subtotal/Total Occlusion (90-100%) Non-Evaluable (technically non-diagnostic FINDINGS: Abdominal aorta: No demonstrated narrowing. Minimal atherosclerotic plaque is present. No dissection or aneurysmal dilatation is present. Celiac and superior mesenteric arteries: No demonstrated narrowing. Inferior mesenteric artery: No demonstrated narrowing. Right renal artery(arteries): No demonstrated narrowing. Left renal artery(arteries): No demonstrated narrowing. Right common iliac artery: No demonstrated narrowing. Right external iliac artery: No demonstrated narrowing. Right internal iliac artery: No demonstrated narrowing. Left common iliac artery: No demonstrated narrowing. Left external iliac artery: No demonstrated narrowing. Left internal iliac artery: No demonstrated narrowing. Minimal eccentric atherosclerotic plaque is present throughout the abdominal aorta and its major branches. NONVASCULAR FINDINGS: The visualized lung bases are unremarkable. Normal liver. There is non-visualization of the gallbladder, which may be secondary to either contraction or a prior cholecystectomy. Normal spleen. Normal pancreas. Normal bilateral adrenal glands. There is mild cortical atrophy of the right kidney, consistent with chronic medical renal disease. There is mild cortical atrophy of the left kidney, consistent with chronic medical renal disease. Several small cysts are present in the right kidney which do not requiring additional imaging. Normal visualized stomach. Normal small intestine. There is significant sigmoid and rectosigmoid diverticulosis. No demonstrated active inflammation. Moderate cecal diverticulosis is also present. A few diverticula of the distal transverse colon are present as well. No free air or free fluid or bowel dilatation is seen. Postoperative clips are seen in the right anterior abdominal wall. A tiny amount of mucosal wall serpiginous high density is present at the origin of the sigmoid colon in the left lower quadrant likely representing mucosal hemorrhage. However no high density fluid is pooling within the sigmoid or rectal lumen to indicate active hemorrhaging. A nuclear medicine RBC scan can be obtained if there is continued clinical concern. Focal diverticular bleed is suspected. There is non-visualization of the appendix. There is diffuse atherosclerotic calcification of the abdominal aorta with elongation and tortuosity, but without a demonstrated aneurysm. Normal inferior vena cava. Normal retroperitoneum. Normal urinary bladder. Unremarkable uterus and adnexa. Normal abdominal wall. There are diffuse degenerative changes of the visualized lumbar spine. Lumbar spine hardware and related changes are present. CT/CTA Abd/Pelvis W/WO Contrast IMPRESSION: 1. There is significant sigmoid and rectosigmoid diverticulosis. No demonstrated active inflammation. Moderate cecal diverticulosis is also present. A few diverticula of the distal transverse colon are present as well. No free air or free fluid or bowel dilatation is seen. Postoperative clips are seen in the right anterior abdominal wall. 2. A tiny amount of mucosal wall serpiginous high density is present at the origin of the sigmoid colon in the left lower quadrant likely representing mucosal hemorrhage. However no high density fluid is pooling within the sigmoid or rectal lumen to indicate active hemorrhaging. A nuclear medicine RBC scan can be obtained if there is continued clinical concern. Focal diverticular bleed is suspected. Electronically Signed: Sanchez Rhodes MD at 14:35 EDT ,
--- NOTE | 2023-04-09 13:13 | EKG12_ITS ---
Test Reason : cp Blood Pressure : / mmHG Vent. Rate : 075 BPM Atrial Rate : 075 BPM P-R Int : 148 ms QRS Dur : 088 ms QT Int : 396 ms P-R-T Axes : 051 008 011 degrees QTc Int : 442 ms Normal sinus rhythm Normal ECG When compared with ECG of 08-FEB-2022 11:37, No significant change was found Confirmed by SANTIAGO ANDERSON, JULIA ([id number]), video tape editor MADHURI TEJADA ([id number]) on 05/07/2023 1:21:37 PM Referred By: Mary Confirmed By:JULIA HENDERSON MD
[2023-04-09 14:02] LABS: Troponin-I HS 5 pg/mL (3.0-54.0)
--- NOTE | 2023-04-09 14:45 | DCINST_ITS ---
Discharge Instructions Diet Discharge Diet: Low fat / Low cholesterol Activity Discharge Activity: Return to Normal Activity Dressing / Incision Call your doctor if you observe: Fever of 101 or Higher, Shortness of breath, Dizziness, Fainting spells, Swelling in the ankles, Chest pain and Increased palpitations (irregular heartbeat) Follow Up Care Test Results: Test results from this visit will be discussed in further detail at your follow- up appointment, if applicable. Discharge Plan Admission Admit Date/Time: 04/08/23 20:10 Attending Provider: Alonso Mcclure Primary Care Provider: Radha Xavier NP Consulting Providers: Umberto Garcia; Logan Haas Discharge Orders/Prescriptions Prescriptions: Continued sennosides-docusate sodium [Senexon-S] 8.6-50 mg tablet 1 tab-cap PO QHS clopidogrel [Plavix] 75 mg tablet 75 mg PO DAILY Qty: 90 3RF levothyroxine [Synthroid] 25 mcg tablet 25 mcg PO DAILY spironolactone 25 mg tablet 12.5 mg PO DAILY 30 Days Qty: 15 0RF ascorbic acid (vitamin C) [Vitamin C] 1,000 mg Tablet 1,000 mg PO QHS atorvastatin 10 mg tablet See Rx Instructions .ROUTE .COMPLEX Qty: 90 3RF Dose Instruction: TAKE 1 TABLET BY MOUTH AT BEDTIME Rx Instructions: TAKE 1 TABLET BY MOUTH AT BEDTIME metoprolol succinate 25 mg tablet extended release 24 hr 12.5 mg PO DAILY Qty: 45 3RF Referrals / Follow Up: Radha Xavier NP, [facility] [Primary Care Provider] - Within 1 Week Disposition Disposition (needs filled in before D/C Order can be placed): Home, Self Care
--- NOTE | 2023-04-09 15:46 | CASEMGMT ---
CUONG CM into pt room, pt denies any homegoing needs. Pt states she feels safe to return home.
[2023-04-09] MEDS: 0.9% Saline Lock 10 ML Syringe IV (16:14)
--- NOTE | 2023-04-09 17:52 | PN.HOSP_ITS ---
Subjective Subjective Doing well, no issues overnight. No abdominal pain no further bloody BMs Objective Data Objective Data Vital Signs: Vital Signs Temp Pulse Resp BP Pulse Ox O2 Del Method 98.4 F 74 17 126/64 H 93 Room Air 04/09/23 16:08 04/09/23 16:08 04/09/23 16:08 04/09/23 16:08 04/09/23 16:08 04/09/23 16:08 Oxygen Delivery Method Room Air Weight: 149 lb Body Mass Index (BMI) 27.2 Intake & Output: Intake and Output for Last 24 Hours 04/08/23 04/09/23 04/10/23 03:59 03:59 03:59 Intake Total 742.5 / 742.5 827.5 / 827.5 Balance 742.5 / 742.5 827.5 / 827.5 Lab / Micro Data 04/09/23 18:50 04/09/23 05:40 Labs: Laboratory Results - last 24 hr 04/08/23 18:20: WBC 9.4, RBC 4.67, Hgb 12.9, Hct 40.9, MCV 87.6, MCH 27.6, MCHC 31.5 L, RDW Std Deviation 43.8, RDW Coeff of Maggi 13.6, Plt Count 241, MPV 9.5, Immature Gran % (Auto) 0.700, Neut % (Auto) 68.0, Lymph % (Auto) 24.9, [place] % (Auto) 4.7, Eos % (Auto) 1.5, Baso % (Auto) 0.2, Absolute Neuts (auto) 6.4, Absolute Lymphs (auto) 2.33, Nucleated RBC % 0, PT 13.0, INR 1.0, APTT 26.3, Sodium 139, Potassium 4.0, Chloride 108 H, Carbon Dioxide 25.0, Anion Gap 6, BUN 10, Creatinine 0.73, Estim Creat Clear Calc 32.53, Est GFR (MDRD) Af Amer 97, Est GFR (MDRD) Non-Af 81, BUN/Creatinine Ratio 13.7, Glucose 98, Calcium 8.6 04/09/23 00:20: Hgb 11.6 L, Hct 37.6 04/09/23 05:40: WBC 7.6, RBC 4.25, Hgb 11.9 L, Hct 38.4, MCV 90.4, MCH 28.0, MCHC 31.0 L, RDW Std Deviation 45.6 H, RDW Coeff of Maggi 13.6, Plt Count 213, MPV 9.7, Immature Gran % (Auto) 0.500, Neut % (Auto) 64.0, Lymph % (Auto) 25.5, [place] % (Auto) 6.2, Eos % (Auto) 3.3, Baso % (Auto) 0.5, Absolute Neuts (auto) 4.9, Absolute Lymphs (auto) 1.94, Nucleated RBC % 0, Sodium 143, Potassium 3.8, Chloride 113 H, Carbon Dioxide 26.0, Anion Gap 4 L, BUN 10, Creatinine 0.63, Estim Creat Clear Calc 32.53, Est GFR (MDRD) Af Amer 116, Est GFR (MDRD) Non-Af 96, BUN/Creatinine Ratio 15.9, Glucose 92, Calcium 8.3 L, TSH 2.57 04/09/23 12:10: Hgb 13.0, Hct 41.5 04/09/23 13:33: Troponin I High Sens 5 Radiography Diagnostic Testing: Radiology Impression Abdomen/Pelvis CTA 04/09/23 13:04 IMPRESSION: 1. There is significant sigmoid and rectosigmoid diverticulosis. No demonstrated active inflammation. Moderate cecal diverticulosis is also present. A few diverticula of the distal transverse colon are present as well. No free air or free fluid or bowel dilatation is seen. Postoperative clips are seen in the right anterior abdominal wall. 2. A tiny amount of mucosal wall serpiginous high density is present at the origin of the sigmoid colon in the left lower quadrant likely representing mucosal hemorrhage. However no high density fluid is pooling within the sigmoid or rectal lumen to indicate active hemorrhaging. A nuclear medicine RBC scan can be obtained if there is continued clinical concern. Focal diverticular bleed is suspected. Electronically Signed: Sanchez Rhodes MD at 14:35 EDT , Physical Exam Narrative General: Alert, Oriented x3, Cooperative, No apparent distress HEENT: Atraumatic, PERRLA, EOMI, Normocephalic Oral: Moist Mucosa Neck: Supple, No JVD Lungs: Clear to auscultation, Normal air movement, No rhonchi, No wheeze, No rales Cardiovascular: Regular rate, Regular Rhythm, Normal S1, Normal S2, No murmurs Abdomen: Soft, Non Tender, Non-Distended, No Hepato-splenomegaly Extremities: No edema, Capillary Refill Less than 3 Seconds Skin: No rashes, No breakdown Musculoskeletal: No Tenderness to Palpation of Joints or Extremities Neurological: Cranial nerves II-XII grossly intact, Motor Exam 5/5 strength throughout, Sensory exam intact to light touch and pain Psych/Mental Status: Normal Affect, Appropriate Assessment & Plan Assessment/Plan (1) GI bleed: QUALIFIERS: GI bleed type/associated pathology: diverticulosis Qualified Code(s): K57.91 - Diverticulosis of intestine, part unspecified, without perforation or abscess with bleeding (2) 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 placement: (3) Essential hypertension: PLAN: Plan 1. Bright red blood per rectum secondary to a history of diverticular bleed while on Plavix ? Hemoglobin is stable and she does not have anemia ? We will advance her diet and plan for discharge in the morning ? We will hold her Plavix and have her follow-up with her lubrication servicer to discuss continuation or cessation as her stents are over 12 months old ? Appreciate gastroenterology's assistance 2. CAD status post stent/HTN/HLD ? She was on aspirin and Brilinta however she had a GI bleed last April after her stent so she was treated and then transition to just Plavix ? Continue with her blood pressure medications ?Continue with Lipitor DVT: SCDs Charges/Coding Visit Charges Inpatient E&M: 59443 Subs Hosp L2
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
[2023-04-09 18:59] LABS: Hematocrit 39.2 % (37-47); Hemoglobin 12.2 g/dL (12.0-15.0)
[2023-04-09] MEDS: Ascorbic Acid 500 MG Tablet 1000 MG PO (19:43)
[2023-04-09] MEDS: Atorvastatin Calcium 10 MG Tablet PO (19:43)
[2023-04-10] MEDS: Levothyroxine 25 MCG TABLET PO (04:13)
[2023-04-10 04:16] VITALS: BP 122/72; PULSE 70; RESP 16; TEMP 36.1; O2SAT 93
[2023-04-10 07:37] VITALS: BP 111/54; PULSE 65; RESP 18; TEMP 36.7; O2SAT 97
[2023-04-10 09:02] VITALS: O2SAT 96
[2023-04-10 09:14] VITALS: PULSE 65
[2023-04-10] MEDS: Metoprolol(XL)Succ 25 MG Tablet 12.5 MG PO (09:14)
[2023-04-10] MEDS: Spironolactone 25 MG Tablet 12.5 MG PO (09:15)
--- NOTE | 2023-04-10 10:07 | CASEMGMT ---
Met with patient to complete LAURENT form. LAURENT form explained to patient who voiced understanding and signed form. Original form placed in pt?s chart and copy provided to patient. Alysia Lennon, Discharge Planning Asst.
[2023-04-10 12:37] VITALS: BP 102/45; PULSE 83; RESP 18; TEMP 36.6; O2SAT 97
[2023-04-10 14:18] VITALS: BP 112/55; PULSE 79; RESP 18; TEMP 36.6; O2SAT 97
--- NOTE | 2023-04-10 16:03 | CHAPLAIN ---
Type of Pastoral Visit _x__ Initial Visit ___ Follow-up Visit ___ On-call Visit ___ General Patient Visit ___ Spiritual Assessment ___ Family Conference ___ Bereavement ___ Rapid Response ___ Code Blue ___ Other (describe below) Pastoral Care Referral From _x__ Patient ___ Family ___ Nurse ___ Physician ___ Consulting Technical Manager ___ Form Tamping Machine Operator ___ Other (describe below) Sacrament/Intervention _x__ Active listening ___ Anointing ___ Yarsanism ___ Bereavement ___ Communion _x__ Janee exploration ___ _x__ Life review _x__ Prayer ___ Reconciliation ___ Sacrament of Sick _x__ Supportive presence ___ Wedding ___ Other (describe below) Pastoral Comments time to listen to patient explain her desires for her health and life going forward; pt states that she has been active and in control of her own life and wishes to continue that as long as possible; pt has limited family but is supported by her spouse; pt welcomes presence and prayer
--- NOTE | 2023-04-10 16:05 | PCM.DC.SUM ---
Providers Date of Admission: 04/08/23 Primary Care Physician: MILTON Campos Consultations 04/08/23 22:36 Consult: Gastroenterology Routine Consulting Provider: Umberto Garcia Reason for Consult: ABLRodolfo EMERGENT Consult: No MD Notified: Yes Date Notified: 04/08/23 Time Notified: 20:17 Method of Notification: ED Physician Initiated Reason For Visit: LOWER GI BLEED Diagnosis Discharge Diagnosis (1) GI bleed: Status: Chronic Code(s): K92.2 - Gastrointestinal hemorrhage, unspecified Qualifiers: GI bleed type/associated pathology: diverticulosis Qualified Code(s): K57.91 - Diverticulosis of intestine, part unspecified, without perforation or abscess with bleeding (2) 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 placement: Status: Chronic Code(s): Z95.5 - Presence of coronary angioplasty implant and graft (3) Essential hypertension: Status: Chronic Code(s): I10 - Essential (primary) hypertension Plan 1. Bright red blood per rectum secondary to a history of diverticular bleed while on Plavix ? Hemoglobin is stable and she does not have anemia ? We will advance her diet and plan for discharge in the morning ? We will hold her Plavix and have her follow-up with her human resources office assistant to discuss continuation or cessation as her stents are over 12 months old ? Appreciate gastroenterology's assistance 2. CAD status post stent/HTN/HLD ? She was on aspirin and Brilinta however she had a GI bleed last April after her stent so she was treated and then transition to just Plavix ? Continue with her blood pressure medications ?Continue with Lipitor DVT: SCDs Medications at Discharge Home Medications sennosides 8.6 mg-docusate sodium 50 mg tablet (Senexon-S) 1 tab-cap PO QHS stool softener 10/05/21 levothyroxine 25 mcg tablet (Synthroid) 25 mcg PO DAILY THYROID 11/22/21 spironolactone 25 mg tablet 12.5 mg (1/2 x 25 mg) PO DAILY 30 days #15 tabs 11/23/21 ascorbic acid (vitamin C) 1,000 mg tablet (Vitamin C) 1,000 mg PO QHS vitamin 05/05/22 clopidogrel 75 mg tablet (Plavix) 75 mg PO DAILY #90 tabs 05/28/22 atorvastatin 10 mg tablet See Rx Instructions .Route .COMPLEX #90 tabs 10/31/22 metoprolol succinate 25 mg tablet,extended release 24 hr 12.5 mg (1/2 x 25 mg) PO DAILY #45 tabs 01/02/23 Hospital Course Operations None Procedures None Summary of Care Provided Minutes Spent on Discharge: 31 Hospital Course: PEr HPI: SUSY BAKER, is a 87 F with a significant history of hypertension; CAD with 2 stents placed in October 2021 who presents to emergency department with bright red blood per rectum 2 days in a row. This is patient's second visit for the same issue. On the first day case was discussed with her gastroenterology, Dr. Garcia who recommended patient's Plavix be held for 5 days. Patient was subsequent discharged home. However patient continued to have bright red blood per rectum prompting her to come back to emergency department next day. Associated with her symptoms is nausea, lightheadedness, and weakness. She reports weakness to the extent that her knees began to buckle. Further she reports lower abdominal pain. In April 2022 patient also had a diverticular bleed. She reported at that time a scope was done and bleeding from four sports where controlled. On this new presentation GI recommended that patient stay overnight; and have another scope if her symptoms persisted. Hospital Course: 1. Diverticular bleed?87-year-old female with a history of diverticular bleeding in the past presented to the hospital with bright red blood per rectum. She presented to the hospital multiple times in a row despite having normal hemoglobins because of the continued bleeding. She is fairly asymptomatic and had no lightheadedness or dizziness today. We did elect to hold her Plavix for 7 more days on discharge as her cardiac stents were over a year old but I do recommend that she follow-up with gastroenterology and/or her human resources office assistant to discuss the possibility of coming off of her antiplatelet. She had been on dual antiplatelets after her stent however one of them was discontinued last April when she had to have a colonoscopy with cautery for her diverticular bleed at that time. I do recommend that she follow-up with her PCP in 3 to 5 days for outpatient monitoring and blood work. I discussed with her the plan for discharge today she expressed understanding of the risks and benefits of going home and would like to go home today. 2. Coronary artery disease status post stent, hypertension, hyperlipidemia are chronic medical condition which complicate her care. Her home medications were continued where appropriate Physical Exam Narrative General: Alert, Oriented x3, Cooperative, No apparent distress HEENT: Atraumatic, PERRLA, EOMI, Normocephalic Oral: Moist Mucosa Neck: Supple, No JVD Lungs: Clear to auscultation, Normal air movement, No rhonchi, No wheeze, No rales Cardiovascular: Regular rate, Regular Rhythm, Normal S1, Normal S2, No murmurs Abdomen: Soft, Non Tender, Non-Distended, No Hepato-splenomegaly Extremities: No edema, Capillary Refill Less than 3 Seconds Skin: No rashes, No breakdown Musculoskeletal: No Tenderness to Palpation of Joints or Extremities Neurological: Cranial nerves II-XII grossly intact, Motor Exam 5/5 strength throughout, Sensory exam intact to light touch and pain Psych/Mental Status: Normal Affect, Appropriate Weight / BMI Weight Weight: 149 lb Body Mass Index (BMI) 27.2 ABG / Lab / Microbiology Data 04/09/23 18:50 04/09/23 05:40 Laboratory: Laboratory Results - last 24 hr 04/09/23 18:50: Hgb 12.2, Hct 39.2 D/C Instructions Discharge Diet: Low fat / Low cholesterol Call your doctor if you observe: Fever of 101 or Higher, Shortness of breath, Dizziness, Fainting spells, Swelling in the ankles, Chest pain and Increased palpitations (irregular heartbeat) Meaningful Use Info Meaningful Use Diagnoses (Choose all that apply): None applicable Discharge Plan Admission Admit Date/Time: 04/08/23 20:10 Attending Provider: Alonso Mcclure Primary Care Provider: Radha Xavier NP Consulting Providers: Umberto Garcia; Logan Haas Discharge Orders/Prescriptions Prescriptions: Continued sennosides-docusate sodium [Senexon-S] 8.6-50 mg tablet 1 tab-cap PO QHS levothyroxine [Synthroid] 25 mcg tablet 25 mcg PO DAILY spironolactone 25 mg tablet 12.5 mg PO DAILY 30 Days Qty: 15 0RF ascorbic acid (vitamin C) [Vitamin C] 1,000 mg Tablet 1,000 mg PO QHS atorvastatin 10 mg tablet See Rx Instructions .ROUTE .COMPLEX Qty: 90 3RF Dose Instruction: TAKE 1 TABLET BY MOUTH AT BEDTIME Rx Instructions: TAKE 1 TABLET BY MOUTH AT BEDTIME metoprolol succinate 25 mg tablet extended release 24 hr 12.5 mg PO DAILY Qty: 45 3RF Held clopidogrel [Plavix] 75 mg tablet 75 mg PO DAILY Qty: 90 3RF Hold Instructions: Resume on 04/16/23. Referrals / Follow Up: All Cast MD [Med Staff - Active Staff] - (please call and schedule f/u appointment related to plavix ) Radha Xavier NP, [employer] [Primary Care Provider] - Within 1 Week Disposition Disposition (needs filled in before D/C Order can be placed): Home, Self Care Charges/Coding Visit Charges Inpatient E&M: 70750 Disch Hosp >30min
--- NOTE | 2023-04-10 18:51 | EX.PCM.PN.GI ---
Subjective Subjective I had a conversation with Dr. Segun De Jesus says that she can be off of her Plavix for now. I told her to follow-up with Dr. Vela as an outpatient to discuss future antiplatelet therapy. Objective Data Objective Data Vital Signs: Vital Signs Temp Pulse Resp BP Pulse Ox O2 Del Method 97.8 F 79 18 112/55 L 97 Room Air 04/10/23 14:18 04/10/23 14:18 04/10/23 14:18 04/10/23 14:18 04/10/23 14:18 04/10/23 14:18 Oxygen Delivery Method Room Air Weight: 149 lb Body Mass Index (BMI) 27.2 Intake & Output: Intake and Output for Last 24 Hours 04/08/23 04/09/23 04/10/23 23:59 23:59 23:59 Intake Total 742.5 / 742.5 1738.75 / 1738.75 1300 / 1300 Balance 742.5 / 742.5 1738.75 / 1738.75 1300 / 1300 Lab / Micro Data 04/09/23 18:50 04/09/23 05:40 Labs: Laboratory Results - last 24 hr 04/09/23 18:50: Hgb 12.2, Hct 39.2 Physical Exam Narrative General: Alert, Oriented x3, Cooperative, No apparent distress HEENT: Atraumatic, PERRLA, EOMI, Normocephalic Oral: Moist Mucosa Neck: Supple, No JVD Lungs: Clear to auscultation, Normal air movement, No rhonchi, No wheeze, No rales Cardiovascular: Regular rate, Regular Rhythm, Normal S1, Normal S2, No murmurs Abdomen: Soft, Non Tender, Non-Distended, No Hepato-splenomegaly Extremities: No edema, Capillary Refill Less than 3 Seconds Skin: No rashes, No breakdown Musculoskeletal: No Tenderness to Palpation of Joints or Extremities Neurological: Cranial nerves II-XII grossly intact, Motor Exam 5/5 strength throughout, Sensory exam intact to light touch and pain Psych/Mental Status: Normal Affect, Appropriate Assessment & Plan Assessment/Plan (1) GI bleed: QUALIFIERS: GI bleed type/associated pathology: diverticulosis Qualified Code(s): K57.91 - Diverticulosis of intestine, part unspecified, without perforation or abscess with bleeding PLAN: Recurrent diverticular bleeding in the setting of antiplatelets status post OH and PTCA with stenting. She is only on Plavix at this time and still had a lower GI bleed. I would continue to hold antiplatelet therapy for the next 7 days. I talked to her in told her that she may not be a candidate for anticoagulation or antiplatelet therapy unless she undergoes a sigmoid resection. I would have her see her housing assistant property manager for recommendations regarding her antiplatelet therapy. Charges/Coding Visit Charges Inpatient E&M: 41087 Subs Hosp L3
== END 2023-04-10 16:04 | disposition home or self-care (01) ==
LOC: ED 19:38 → MS3 20:21
PROVIDERS: Anesthesiology; Admitting Provider Hospitalist; Emergency Provider Emergency Medicine; Visit Provider Family Medicine
DX: K57.31 Diverticulosis of large intestine without perforation or abscess with bleeding (principal); I25.10 Atherosclerotic heart disease of native coronary artery without angina pectoris; Z79.02 Long term (current) use of antithrombotics/antiplatelets; D62 Acute posthemorrhagic anemia; E78.5 Hyperlipidemia, unspecified; Z95.5 Presence of coronary angioplasty implant and graft; I10 Essential (primary) hypertension; R53.1 Weakness; R42 Dizziness and giddiness; E03.9 Hypothyroidism, unspecified; Z79.890 Hormone replacement therapy; Z79.899 Other long term (current) drug therapy
CPT/HCPCS: 36415; 74174; 80048; 84443; 84484; 85014; 85018; 85025; 85610; 85730; 93005; 96360; 96361; 99221; 99282; J7030; Q9967; A4216; G0378

== ENCOUNTER 2023-08-12 12:14 | Emergency (ER) | payer MEDICARE, SELFPAY ==
[2023-08-12] VITALS (7 sets, daily range): BP systolic 142–170; BP diastolic 72–87; PULSE 64–74; RESP 16–19; TEMP 35.7; O2SAT 95–97; BMI 25.7
--- NOTE | 2023-08-12 12:33 | EKG12_ITS ---
Test Reason : CP Blood Pressure : / mmHG Vent. Rate : 068 BPM Atrial Rate : 068 BPM P-R Int : 146 ms QRS Dur : 084 ms QT Int : 384 ms P-R-T Axes : 049 033 038 degrees QTc Int : 408 ms Sinus rhythm with Premature supraventricular complexes Otherwise normal ECG Confirmed by SANTIAGO ANDERSON, JULIA ([id number]), sound editor BECKA MCCRARY ([id number]) on 08/14/2023 9:13:41 AM Referred By: NIKOS/APRIL Confirmed By:JULIA HENDERSON MD
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
[2023-08-12 12:44] LABS: Absolute Lymphocyte Count 2.01 X10^3/uL (0.83-4.51); Absolute Neutrophil Count 8.7 X10^3/uL (2.0-7.7); Basophil# 0.03 X10^3/uL; Basophil% 0.3 % (0-1); Eosinophil# 0.01 X10^3/uL; Eosinophils% 0.1 % (0-5); Hematocrit 48.1 % (37-47); Hemoglobin 15.3 g/dL (12.0-15.0); Lymphocyte # 2.01 X10^3/ul (0.83-4.51); Lymphocyte % 17.7 % (19-41); Mean Corp Hgb Conc 31.8 g/dL (32-36); Mean Corpuscular Volume 84.8 fL (81-99); Mean Platelet Vol. 9.8 fl (6.2-12.0); Monocyte# 0.55 X10^3/uL; Monocyte% 4.8 % (0-10); NRBC Flagged by Analyzer 0 % (0-5); Neutrophil # 8.71 X10^3/uL (2.7-7.7); Neutrophil % 76.6 % (47-70); Platelet Count 211 K/mm3 (150-450); RBC Distribution Width CV 13.9 % (11.6-14.6); RBC Distribution Width SD 43.1 fl (35.1-43.9); Red Blood Count 5.67 M/mm3 (4.2-5.4); White Blood Count 11.4 K/mm3 (4.4-11.0)
[2023-08-12 13:00] LABS: Anion Gap 7 (5-15); BUN 11 mg/dL (7-18); Calcium,Total 9.1 mg/dL (8.5-10.1); Chloride 106 mmol/L (98-107); Creatinine, Serum 0.69 mg/dL (0.55-1.02); EST Glomerular Filtration Rate 86 mL/min (>60); Est Glom Filt Rate - Afr Amer 104 mL/min (>60); Estimated Creatinine Clearance 43.89 ml/min; Glucose 107 mg/dL (74-106); Potassium 4.1 mmol/L (3.5-5.1); Sodium Level 140 mmol/L (136-145); Troponin-I HS (w/2H Reflex) 7 pg/mL (3.0-54.0)
[2023-08-12 13:35] LABS: D-Dimer Quantitative (DVT/PE) 0.61 FEU/ug/m (0.27-0.49)
[2023-08-12 14:40] LABS: Reflex Troponin-HS? (from REC) Y
[2023-08-12 15:45] LABS: Troponin-I HS 6 pg/mL (3.0-54.0)
== END 2023-08-12 16:28 | disposition home or self-care (01) ==
PROVIDERS: Physician Assistant; Emergency Provider Emergency Medicine; Visit Provider Emergency Medicine
DX: R07.9 Chest pain, unspecified (principal); I25.10 Atherosclerotic heart disease of native coronary artery without angina pectoris; I10 Essential (primary) hypertension; Z95.5 Presence of coronary angioplasty implant and graft; Z79.82 Long term (current) use of aspirin; E03.9 Hypothyroidism, unspecified; Z79.899 Other long term (current) drug therapy; K21.9 Gastro-esophageal reflux disease without esophagitis; Z90.49 Acquired absence of other specified parts of digestive tract
CPT/HCPCS: 71045; 80048; 84484; 85025; 85379; 93005; 99283; A4216

== ENCOUNTER 2023-08-17 18:25 | Emergency (ER) | payer MEDICARE, SELFPAY ==
[2023-08-17 18:26] VITALS: BP 135/78; PULSE 88; RESP 16; TEMP 35.1; O2SAT 95; BMI 25.6
[2023-08-17 18:46] VITALS: BP 128/66; PULSE 87; RESP 19
--- OUTSIDE RECORDS SUMMARY | 2023-08-17 18:47 | XMS RPT_ITS | CCD ---
Author Name Unknown Address [address] [place] [address] Organization [facility] Care Team Providers Care Family Medicine Physician Assistant Name Role Phone Tosha Xavier Unavailable PHILIP COLLINS Unavailable Unavailable PHILIP COLLINS Unavailable Unavailable TOSHA XAVIER Unavailable Unavailable TOSHA XAVIER Unavailable Unavailable REHAN HAIRSTON Unavailable Unavaila ble REHAN HAIRSTON Unavailable Unavaila ble TOSHA XAVIER Unavailable Unavailable JESSICA Unavailable Unavailable JESSICA Unavailable Unavailable TOSHA XAVIER Unavailable Unavailable Efren Atwood Unavailable Vielka Nicholas Unavailable Tosha Xavier Primary Care Provider [phone] Tosha Xavier Primary Care Provider [phone] Tosha Xavier. Primary Care Provider [phone] Efren Atwood MD Unavailable [phone] Vielka Nicholas MD Unavailable Tosha Xavier CNP Primary Care Provider [phone] Tosha Xavier CNP Primary Care Provider Efren Atwood MD Unavailable [phone] Vielka Nicholas MD Unavailable Bret Kirby MD Unavailable Efren Atwood MD Unavailable [phone] Vielka Nicholas MD Unavailable Bret Kirby MD Unavailable Purkey JANELL, Tosha Nunez Primary Care Provider Rai ANDERSON, Efren Unavailable [phone] Cristopher ANDERSON, Vielka Unavailable Purkey JANELL, Tosha Nunez Primary Care Provider Kofi ANDERSON, Bret Unavailable PURKEY, TOSHARodolfo GARCIA Referring Unavailable PURKEY, TOSHARodolfo GARCIA Consulting Unavailable SELVIN ANGELES MD Attending Unavailable SELVIN ANGELES MD Primary Care Unavailable SELVIN ANGELES MD Admitting Unavailable PROVIDER, UNKNOWN Consulting Unavailable PURKEY, TOSHARodolfo GARCIA Attending Unavailable PURKEY, TOSHARodolfo GARCIA Consulting Unavailable PURKEY, TOSHARodolfo GARCIA Primary Care Unavailable PURKEY, TOSHA WINDOWS SERVER ADMINISTRATOR Admitting Unavailable PROVIDER, UNKNOWN Consulting Unavailable PURKEY, TOSHA WINDOWS SERVER ADMINISTRATOR Consulting Unavailable GALIHOMAR Attending Unavailable GALI, HOMAR Walker Primary Care Unavailable GALIHOMAR VALENTINE Admitting Unavailable PROVIDER, UNKNOWN Consulting Unavailable PURKEY, TOSHA M Attending Unavailable PURKEY, TOSHA M Primary Care Unavailable PURKEY, TOSHA M Referring Unavailable PURKEY, TOSHA M Attending Unavailable PURKEY, TOSHA M Primary Care Unavailable PURKEY, TOSHA M Referring Unavailable PURKEY, TOSHA M Attending Unavailable PURKEY, TOSHA M Primary Care Unavailable PURKEY, TOSHA M Referring Unavailable Allergies Allergy Classification Reported Allergen(s) Allergy Type Date of Onset Reaction(s) Facility Opioid Agonists (2 sources) Codeine Drug Allergy 1 Nausea And Vomiting [facility] Penicillins (antibiotic) (2 sources) Penicillins Drug Allergy [facility] System Unclassified (2 sources) Bee Propensity to adverse reactions to drug 1 [facility] (15 sources) codeine; 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: [CODEINE] Propensity to adverse reactions to drug 1 GI Intolerance, Nausea And Vomiting [facility] (8 sources) Penicillins; 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: [PENICILLINS] Propensity to adverse reactions to drug 1 [facility] (11 sources) Bee Propensity to adverse reactions to drug [address] [facility] (6 sources) Penicillins Propensity to adverse reactions to drug [address] [facility] (1 source) Penicillins Propensity to adverse reactions to drug 1 Hives [facility] (2 sources) Codeine Drug Allergy [facility] (2 sources) Penicillins Drug allergy (disorder) [facility] (1 source) Penicillin Drug Allergy [facility] Medications Current Medications Medication Drug Class(es) Dates Sig (Normalized) Sig (Original) amLODIPine 5 mg oral tablet (13 sources) Dihydropyridine Calcium Channel Margaret take 1 tablet by mouth once daily amlodipine (NORVASC) 5 MG tablet Take 5 mg by mouth daily. 0 Active apixaban 5 mg oral tablet (3 sources) Factor Xa Inhibitor apixaban (ELIQUIS) 5 mg Tab Take by mouth 2 (two) times a day. 0 Active bumetanide 1 mg oral tablet (3 sources) Loop Diuretic bumetanide (BUME X) 1 MG tablet Take 1 mg by mouth as needed. 0 Active hydroCHLOROthiazide 12.5 mg oral tablet (8 sources) Thiazide Diuretic take 1 tablet by mouth once daily as needed hydrochlorothiazide (HYDRODIURIL) 12.5 MG tablet Take 12.5 mg by mouth daily as needed (for swelling). 0 Active hydroCHLOROthiazide 12.5 mg / losartan potassium 50 mg oral tablet (3 sources) Thiazide Diuretic, Angiotensin 2 Receptor Margaret take 1 tablet by mouth once daily losartan-hydrochloroth iazide (HYZAAR) 50-12.5 mg per tablet Take 1 tablet by mouth daily. 0 Active meclizine hydrochloride 25 mg oral tablet (13 sources) Antiemetic take 1 tablet by mouth three times daily as needed for dizziness meclizine (ANTIVERT) 25 MG tablet Take 25 mg by mouth 3 times daily as needed for Dizziness. 0 Active mupirocin 0.02 mg/mg topical ointment (13 sources) RNA Synthetase Inhibitor Antibacterial Start: 01-31-20 19 mupirocin (BACTROBAN) 2 % ointment Apply topically 3 times daily. 22 g 0 01/30/2019 Active pantoprazole 40 mg extended release oral tablet (16 sources) Proton Pump Inhibitor take 40 mg by mouth once daily PANTOPRAZOLE SODIUM PO Take 40 mg by mouth daily. 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] Chronic Deficiency and other anemia (1 source) Iron deficiency anemia secondary to blood loss (chronic); 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: [Iron deficiency anemia secondary to blood loss (chronic)] Onset: 10-16-2022 Chronic Diabetes mellitus with complications (1 source) Type 2 diabetes mellitus with hyperglycemia; 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: [Type 2 diabetes mellitus with hyperglycemia (HCC)] Onset: 10-16-2022 Chronic Diverticulosis and diverticulitis (7 sources) 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; 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: [Diverticulosis of large intestine without perforation or abscess without bleeding] Onset: 10-31-2015 10-31-2015 Chronic Diverticulosis and diverticulitis (6 sources) 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; 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: [Diverticulosis of large intestine without hemorrhage] Onset: 10-31-2015 10-31-2015 Esophageal disorders (13 sources) Gastroesophageal reflux disease; 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: [Gastro-esophageal reflux disease without esophagitis] 01-19-2018 Chronic Essential hypertension (15 sources) Essential (primary) hypertension; 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: [Essential hypertension] Onset: 08-10-2015 01-19-2018 Chronic Heart valve disorders (1 source) Tricuspid valve regurgitation; 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 Hypertension with complications and secondary hypertension (2 sources) Hypertensive heart disease with heart failure; 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: [Hypertensive heart disease without heart failure] Onset: 10-16-2022 Chronic Inflammation; infection of eye (except that caused by tuberculosis or sexually transmitteddisease) (6 sources) Acute conjunctivitis of bilateral eyes; 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: [Conjunctivitis, acute, bilateral] Onset: 08-16-2012 Other connective tissue disease (1 source) Hand pain; 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: [Pain in right hand] Episodic Other lower respiratory disease (1 source) Dyspnea; 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: [Shortness of breath] Episodic Thyroid disorders (20 sources) Subclinical hypothyroidism; 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: [Hypothyroidism] Onset: 03-17-2011 Resolved: 2012 08-18-2015 Chronic Unclassified (2 sources) Edema, unspecified; 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: [Edema, unspecified] Onset: 11-20-2017 Episodic Past or Other Problems Problem Classification Problem Date Documented Da te Episodic/Chronic Abdominal pain (20 sources) Lower abdominal pain; 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: [Abdominal pain] Onset: 8 01-21-2018 Episodic Acute bronchitis (13 sources) Acute bronchitis; 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: [Acute bronchitis, unspecified] Onset: 3 Episodic Conditions associated with dizziness or vertigo (20 sources) Vertigo; 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: [Lightheadedness] Onset: 6 Resolved: 6 08-09-2015 Episodic Fluid and electrolyte disorders (20 sources) Hypokalemia; 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: [Lactic acidosis] Onset: 3 01-21-2018 Episodic Gastrointestinal hemorrhage (13 sources) Gastrointestinal hemorrhage; 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: [Hemorrhage of anus and rectum] Onset: 6 10-31-2015 Episodic Headache; including migraine (20 sources) Frontal headache ; 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: [Headache] Onset: 6 08-10-2015 Episodic Inflammation; infection of eye (except that caused by tuberculosis or sexually transmitteddisease) (7 sources) Acute conjunctivitis of bilateral eyes; 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: [Unspecified acute conjunctivitis, bilateral] Onset: 3 Episodic Malaise and fatigue (2 sources) Malaise; 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: [Other malaise] Onset: 3 Episodic Noninfectious gastroenteritis (13 sources) Gastroenteritis; 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: [Noninfective gastroenteritis and colitis, unspecified] Onset: 3 03-18-2013 Episodic Nonspecific chest pain (16 sources) Chest pain; 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: [Chest pain, unspecified] Onset: 1 Episodic Other nervous system disorders (4 sources) Unsteady gait; 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: [Unsteady gait] Onset: 6 08-10-2015 Episodic Other nervous system disorders (9 sources) Abnormal gait; 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: [Unsteadiness on feet] Onset: 6 08-10-2015 Episodic Pneumonia (except that caused by tuberculosis or sexually transmitted disease) (1 source) Bronchopneumonia, unspecified organism; 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: [Bronchopneumonia, unspecified organism] Onset: 3 Episodic Residual codes; unclassified (4 sources) Edema of lower extremity; 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: [Edema of both legs] Onset: 3 01-22-2013 Episodic Residual codes; unclassified (9 sources) Localized edema; 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: [Bilateral lower limb edema] Onset: 3 01-22-2013 Episodic Urinary tract infections (20 sources) Acute cystitis; 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: [Urinary tract infectious disease] Onset: 1 Resolved: 3 01-21-2018 Episodic Results Test Name Value Interpretation Reference Range Facil ity Vital Signs Date Time Vital Sign Value Performing Clinician Faci lity 12-27-2017 15:25-0400 BP Diastolic 76 mm[Hg] [facility] 12-27-2017 15:25-0400 BP Systolic 116 mm[Hg] [facility] 12-27-2017 15:25-0400 Pulse (Heart Rate) 101 /min [facility] 12-27-2017 15:20-0400 BMI (Body Mass Index) 27.87 kg/m2 [facility] 12-27-2017 15:20-0400 Height 157.5 cm [facility] 12-27-2017 15:20-0400 Weight 69.13 kg [facility] Encounters Encounter Date Encounter Type Care Provider Facility Start: 04-07-2023 End: 04-07-2023 Emergency department patient visit TOSHA XAVIER [facility] Start: 02-04-2023 End: 02-04-2023 ambulatory TOSHA XAVIER [facility] Start: 10-16-2022 End: 10-17-2022 ambulatory TOSHA XAVIER [facility] Start: 10-16-2022 End: 10-16-2022 Subsequent hospital visit by physician Tosha Xavier CHIEF PSYCHOLOGY Work Phone: [facility] Imaging Procedures Date Procedure Procedure Detail Performing Clinician Start: 04-07-2023 Urinalysis TOSHA Pierce Plan of Treatment Date Care Activity Detail Author Start: 01-30-2029 Administration of diphtheria + tetanus + acellular pertussis vaccine DTAP/TDAP/TD VACCINE (2 - Tdap) [facility] Start: 01-30-2029 Diphtheria + pertussis + tetanus vaccine (product) DTAP/TDAP/TD VACCINE (2 - Tdap) [facility] Start: 01-30-2029 Tetanus, diphtheria and acellular pertussis vaccination TDAP/TD ADULT [facility] Start: 10-30-2025 Colonoscopy COLON CANCER SCREENING 10 YEAR COLONOSCOPY [facility] Start: 04-04-2023 Thyroid stimulating hormone measurement TSH [facility] Start: 05-08-2022 COVID-19 VACCINE (5 - Booster for Moderna series) COVID-19 VACCINE (5 - Booster for Moderna series) [facility] Start: 03-29-2022 Influenza vaccination given INFLUENZA VACCINE (#1) [facility] Start: 10-11-2021 End: 10-11-2021 Patient encounter procedure 10/11/2021 Office Visit Cardiology [facility] Start: 03-29-2021 Influenza vaccination Sequential Influenza Vaccine (#1) [facility] Start: 03-29-2021 Influenza vaccination given [facility] Start: 02-12-2021 COVID-19 VACCINE (3 - Booster for Moderna series) COVID-19 VACCINE (3 - Booster for Moderna series) [facility] Start: 02-10-2021 Thyroid stimulating hormone measurement TSH [facility] Start: 02-10-2021 TSH Qn TSH [facility] Start: 01-23-2021 End: 01-23-2021 Office Visit 01/23/2021 Office Visit Endocrinology Vielka Nicholas MD [address] [facility] [address] [place] [address] [phone] [facility] Start: 01-11-2021 End: 01-11-2021 Office Visit 01/11/2021 Office Visit Endocrinology Vielka Nicholas MD [address] [address] [place] [address] [phone] [facility] Start: 05-20-2020 TSH Qn TSH [facility] Start: 03-29-2020 Influenza vaccination given [facility] Start: 02-24-2020 End: 02-24-2020 Office Visit 02/24/2020 Office Visit Endocrinology Vielka Nicholas MD [address] [address] [phone] [facility] Start: 02-19-2020 TSH Qn TSH [facility] Start: 03-29-2019 Influenza vaccination given INFLUENZA VACCINE (#1) [facility] Start: 03-29-2018 Influenza vaccination SEQUENTIAL INFLUENZA VACCINE (Season Ended) [facility] Start: 03-29-2017 Influenza vaccination SEQUENTIAL INFLUENZA VACCINE (#1) [facility] Start: 02-13-2014 Screening mammography MAMMOGRAM [facility] Start: 2002 Fall risk assessment [facility] Start: 2002 Glaucoma screening GLAUCOMA/EYE EXAM AGE 65+ [facility] Start: 2002 Osteoporosis risk assessment done BONE DENSITY SCREENING [facility] Start: 2002 Pneumococcal polysaccharide vaccine (product) PNEUMONIA VACCINE (PCV13 PPSV23) (1 of 2 - PCV13) [facility] Start: 2002 Pneumococcal vaccination PNEUMOCOCCAL VACCINE AGE 65+ (1 of 2 - PCV13) [facility] Start: 2002 Pneumococcal Vaccine: Age 65+ (1 of 1 - PPSV23) Pneumococcal Vaccine: Age 65+ (1 of 1 - PPSV23) [facility] Start: 1997 Zoster vacc, sc [facility] Start: 1987 Administration of herpes zoster vaccine Zoster Vaccines (1 of 2) [facility] Start: 1987 SHINGLES 2 DOSE (1 of 2) SHINGLES 2 DOSE (1 of 2) [facility] Start: 1987 SHINGLES VACCINE (1 of 2) SHINGLES VACCINE (1 of 2) [facility] Start: 1987 Zoster vaccine hzv live for subcutaneous use ZOSTER (SHINGLES) VACCINE (1 of 2) [facility] Start: 1955 ANNUAL WELLNESS VISIT ANNUAL WELLNESS VISIT [facility] Start: 1955 WELLNESS ANNUAL VISIT WELLNESS ANNUAL VISIT [facility] Start: 1949 Adolescent depression screening assessment Depression Screening (PHQ9) [facility] Start: 1949 Adult depression screening assessment [facility] Start: 1949 Depression screening using PHQ-9 (Patient Health Questionnaire 9) score [facility] Start: 1942 COVID-19 Vaccine (1) COVID-19 Vaccine (1) [facility] Start: 1940 History and physical examination, annual for health maintenance Wellness Visit [facility] Start: 1937 Fall risk assessment Falls Risk Assessment [facility] Start: 1937 Screening for osteoporosis DEXA SCAN [facility] Start: 1937 Tetanus vaccination [facility] 12 lead ECG EKG 12 lead ECG Routine 10/16/2022 5:47 PM EDT [facility] Work Phone: End: 03-20-2022 Bilirubin.indirect [Mass/volume] in Serum or Plasma [facility] Immunizations Immunization Date Immunization Notes Care Provider Fa cility 09-15-2020 Moderna Covid-19 Vaccine Tosha Xavier CHIEF PSYCHOLOGY Work Phone: [facility] Work Phone: 2020 Moderna Covid-19 Vaccine Tosha Xavier CHIEF PSYCHOLOGY Work Phone: [facility] Work Phone: 01-30-2019 tetanus and diphther ia toxoids, adsorbed, preservative free, for adult use (5 Lf of tetanus toxoid and 2 Lf of diphtheria toxoid) [facility] 04-02-2017 influenza virus vaccine, unspecified formulation [facility] Payers Date Payer Category Payer Unknown [facility] [id number] 2021-Present [phone] [address] [place] [address] [id number] 2020 Medicare ANTHEM MEDICARE ADVANTAGE ANTHEM HMO MEDICARE SR ADVANTAGE [id number] 2020-Present [phone] [address] [address] [place] [address] Medicare [id number] 2020 Medicare ANTHEM MEDICARE ADVANTAGE ANTHEM HMO MEDICARE SR ADVANTAGE [id number] 2020-Present [phone] [address] [place] [address] Medicare [id number] 2018 Medicare AETNA MEDICARE A DVANTAGE AETNA MEDICARE ADVANTAGE O [id number] 2018-Present [phone] [address] [place] [address] Medicare [id number] 2018 Medicare AETNA MEDICARE A DVANTAGE AETNA MEDICARE ADVANTAGE HMO [id number] 2018-Present [phone] [address] [place] [address] Medicare [id number] 2017 Medicare [id number] 2017 Medicare AETNA MANAGED ME DICARE AETNA MEDICARE PLAN (PPO) [id number] 2017-Present [id number] 1937 Unknown [id number] 1 1937 Unknown [id number] 1 1937 Unknown [id number] 1 1937 Unknown [id number] 1937 Unknown [id number] 1937 Unknown [id number] 7 Medicare [id number] Social History Date Type Detail Facility Start: 09-14-2010 End: 12-27-2017 Tobacco smoking status NHIS Never smoker [facility] Start: 1935 Sex Assigned At Not on file [facility] Start: 02-18-2019 End: 08-30-2021 Alcohol intake Current non-drinker of alcohol (finding) [facility] Start: 09-14-2010 End: 01-12-2020 Tobacco use and exposure Never used [facility] Exposure to SARS-CoV -2 (event) Not sure [facility] Start: 02-18-2019 Alcohol intake No [facility] Start: 1935 Sex Assigned At Female [facility] Clinical Notes 09-11-2021 to 07-24-2022 Milana Torres RN - 09/11/2021 10:00 AM EST Note Date & Type Note Facility 07-24-2022 Note [facility] DISCHARGE SUMMARY NAME ACCOUNT SEX AGE ADMIT DISCHARGE PT MED. RECORD# NUMBER DATE DATE TYPE SUSY BAKER [id number] F 86 07/15/22 07/16/22 2 [id number] ROOM: [id number] DATE OF : 1935 ATTENDING PHYSICIAN: César Dela Cruz FINAL DIAGNOSES: 1. Acute influenza A. 2. Secondary pneumonia. HOSPITAL COURSE: For a full history and physical, please see chart. Brief summary, see below. The patient is an 86-year-old female with a past medical history significant for coronary artery disease, GERD, and hypothyroidism. She started with a cough, sputum, tired, headache, and came to the emergency room. She was hypoxic and dropping down below 88% and improved with 2 liters of oxygen. She was found to have positive influenza A, as well as infiltrate and she was admitted to the medical floor for observation status on IV fluids, Tamiflu, broad spectrum IV antibiotics, and oxygen support. She improved significantly and was requesting to go home this morning. Final chest x-ray came back with no infiltrates. Today, on the date of discharge, she is feeling much better. VITAL SIGNS: Blood pressure is stable at 105/57, heart rate 90, respirations 18, temperature 99.7, and oxygen saturation 95% on room air. GENERAL: This is a well-nourished, well-developed female in no acute distress. HEENT: Unremarkable. NECK: Neck is supple. LUNGS: Normal respiratory effort. Discharge instructions were discussed with her. I will put her on a secondary antibiotic due to the nature of her illness and lower respiratory tract infection versus pneumonia secondary to influenza A. She was discharged home in stable condition with the above instructions. MEDICATIONS ON DISCHARGE: Tamiflu 75 mg twice daily for 4 days, acetaminophen 650 mg every 6 hours p.r.n., Ceftin 250 mg twice daily for 5 days, and continue all other medications as at home including atorvastatin 10 mg daily, Bumex 1 mg daily p.r.n., Levothyroxine 25 mcg daily, metoprolol succinate 25 mg daily, pantoprazole 40 mg daily, Plavix 75 mg daily, Senokot S 1 tablet as directed, spironolactone 25 mg daily, and vitamin B12 1000 mcg once per week. DISCHARGE INSTRUCTIONS/PLAN: Increase activity as tolerated. Regular diet. Quarantine until Saturday. Followup with Dr. Xavier on July 30 at 9 a.m. I evaluated the patient myself the above accurate E&M is done by me Kari Dela Cruz MD Dictated by yonathan Mcgill for César Dela Cruz M.D. 07/16/22 12:16 JOB #: [id number] Transcribed By: am 07/18/22 06:19 Page 1 of 2 SUSY BAKER Discharge Summary SUSY BAKER : 1935 Electronically signed by: E-Sign: CÉSAR DELA CRUZ MD 07/24/22 14:10 Page 2 of 2 SUSY BAKER Discharge Summary [facility] 07-21-2022 Note . MICRO - Microbiology PROCEDURE: Blood Culture (bacterial) [*1] SOURCE: Blood BODY SITE: COLLECTED DATE/TIME: 07/15/2022 12:54 EST RECEIVED DATE/TIME: 07/16/2022 03:16 EST START DATE/TIME: 07/16/2022 03:16 EST FREE TEXT SOURCE: FINAL REPORTS Final Report [] Verified Date/Time/Personnel: 07/21/2022 03:59 EST Blood Culture: No Growth at 5 days. PRELIMINARY REPORTS Preliminary Report [] Verified Date/Time/Personnel: 07/16/2022 03:59 EST Culture has been received in lab and is no growth to date. Routine cultures are held for 5 days. Performing Locations *1: This test was performed at: [address], [facility] , [facility] ([place]) 07-21-2022 Note . MICRO - Microbiology PROCEDURE: Blood Culture (bacterial) [*1] SOURCE: Blood BODY SITE: COLLECTED DATE/TIME: 07/15/2022 11:20 EST RECEIVED DATE/TIME: 07/16/2022 03:15 EST START DATE/TIME: 07/16/2022 03:16 EST FREE TEXT SOURCE: FINAL REPORTS Final Report [] Verified Date/Time/Personnel: 07/21/2022 03:59 EST Blood Culture: No Growth at 5 days. PRELIMINARY REPORTS Preliminary Report [] Verified Date/Time/Personnel: 07/16/2022 03:59 EST Culture has been received in lab and is no growth to date. Routine cultures are held for 5 days. Performing Locations *1: This test was performed at: [address], [facility] , [facility] ([place]) 09-11-2021 History of Present illness Narrative Precall VM to arrive at 0800 for 1000 appointment. Do not use cocaine 48 hrs prior to your exam. Do not smoke 24 hours prior to your exam. Do not drink caffeine (including decaf, coffee, tea, or cola) 12 hours prior to study. Do not take decongestants 12 hours prior to the study. Do not eat solid foods for 4 hours prior to the study. You may take all other prescribed medications as directed unless told to stop by your physician. Drink plenty of fluids prior to scan. Provided call back number for any questions. documented in this encounter [facility] documented in this encounter [facility] Diagnosis Tricuspid valve insufficiency, unspecified etiology- Primary [facility] Diagnosis SOB (shortness of breath) Shortness of breath Chest pain, unspecified type Anginal equivalent (HCC) documented in this encounter [facility] Diagnosis Chest discomfort Other chest pain Malaise Other malaise and fatigue documented in [facility] Consultation (Routine) - Authorized Specialty Diagnoses / Procedures Referred By Farheenac t Referred To Contact Cardiology Diagnoses Tricuspid valve insufficiency, unspecified etiology Tosha Xavier CHIEF PSYCHOLOGY [address] [place] [address] [facility] [address] [facility] [address] [place] [address] Referral ID Status Reason Start Date Expiration Date V isits Requested Visits Authorized [id number] Authorized 08/22/2021 08/22/2022 1 1 [facility] for referral (narrative)* Procedure Authorization (Routine) - Closed Specialty Diagnoses / Procedures Referred By Contac t Referred To Contact Radiology Diagnoses SOB (shortness of breath) Chest pain, unspecified type Anginal equivalent (HCC) Procedures CT Coronary Calcium Score-Respiratory Care Instructor Read Lucho Vo DO [address] [place], [place] [id number] [address] [address] Referral ID Status Reason Start Date Expiration Date Visits Re quested Visits Authorized [id number] Closed 09/11/2021 10/11/2022 1 1 [facility] for visit Narrative* Procedure Authorization (Routine) - Closed Specialty Diagnoses / Procedures Referred By Contac t Referred To Contact Radiology Diagnoses SOB (shortness of breath) Chest pain, unspecified type Anginal equivalent (HCC) Procedures CT Coronary Calcium Score (RSR) CTA Heart-Cornary Artery/Bypass Grafts Lucho Vo DO [address] [id number] [facility] [address] [place] [phone] Referral ID Status Reason Start Date Expiration Date Visits Re quested Visits Authorized [id number] Closed 08/31/2021 10/29/2021 [address] 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 Advance Directives and Livin g Will Advance Directives and Livin g Will 03/17/2011 12:03 PM 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 Latest Code Status on File Code Status Date Activated Date Inactivated Comments Full Code 01/19/2018 7:41 PM 01/21/2018 10:08 PM Full Code 08/09/2015 10:42 PM 08/10/2015 10:14 PM Full Code 2012 10:09 AM 2012 7:29 PM Full Code 08/16/2012 6:04 PM 2012 10:09 AM Full Code 03/17/2011 2:51 AM 03/17/2011 6:20 PM Documents on File Type Date Recorded 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 Advance Directives and Livin g Will 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 Advance Directives and Livin g Will 03/17/2011 12:03 PM Documents on File Type Date Recorded 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 Advance Directives and Livin g Will 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 DNR Documentation Advance Directives and Livin g Will 03/17/2011 12:03 PM Latest Code Status on File Code Status Date Activated Date Inactivated Comments Full Code 01/19/2018 7:41 PM 01/21/2018 10:08 PM Full Code 08/09/2015 10:42 PM 08/10/2015 10:14 PM Full Code 2012 10:09 AM 2012 7:29 PM Full Code 08/16/2012 6:04 PM 2012 10:09 AM Full Code 03/17/2011 2:51 AM 03/17/2011 6:20 PM Documents on File Type Date Recorded 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 Advance Directives and Livin g Will 03/17/2011 12:03 PM Additional Source Comments INFORMATION SOURCE (unrecogn ized section and content) DATE CREATED AUTHOR AUTHOR'S ORGANIZ ATION 01/16/2018 [facility] DATE CREATED AUTHOR AUTHOR'S ORGANIZ ATION 01/16/2018 [facility] DATE CREATED AUTHOR AUTHOR'S ORGANIZ ATION 07/22/2022 [facility] ([place] DATE CREATED AUTHOR AUTHOR'S ORGANIZ ATION 02/09/2023 [facility] DATE CREATED AUTHOR AUTHOR'S ORGANIZ ATION 04/07/2023 [facility] DATE CREATED AUTHOR AUTHOR'S ORGANIZ ATION 07/31/2023 [facility] Care Teams (unrecognized sec tion and content) Family Medicine Physician Assistant Relationship Specialty Start Date End Date Tosha Xavier CNP [address] [place] [address] PCP - General 07/31/17 Efren Atwood MD [address] [address] Cardiology 08/26/13 Vielka Nicholas MD [address] [facility] [address] [place] [address] Consulting Physician Endocrinology 02/05/17 Bret Kirby MD [address] [place] [address] Cardiothoracic Surgery 08/24/21 Family Medicine Physician Assistant Relationship Specialty Start Date End Date Tosha Xavier CNP [address] [place] [address] PCP - General 07/31/17 Efren Atwood MD [address] [address] Cardiology 08/26/13 Vielka Nicholas MD [address] [address] Consulting Physician Endocrinology 02/05/17 Bret Kirby MD [address] [place] [id number] Cardiothoracic Surgery 08/24/21 Family Medicine Physician Assistant Relationship Specialty Start Date End Date Tosha Xavier, CHIEF PSYCHOLOGY [address] [place] [address] PCP - General 07/31/17 Efren Atwood MD [address] [address] Cardiology 08/26/13 Vielka Nicholas MD [address] [address] Consulting Physician Endocrinology 02/05/17 Bret Kriby MD [address] [place] [id number] Cardiothoracic Surgery 08/24/21 Family Medicine Physician Assistant Relationship Specialty Start Date End Date Tosha Xavier, CHIEF PSYCHOLOGY [address] [place] [address] PCP - General 07/31/17 Efren Atwood MD [address] [address] Cardiology 08/26/13 Vielka Nicholas MD [address] [address] Consulting Physician Endocrinology 02/05/17 Bret Kirby MD 955 [facility] 1st Floor Physician [place], [facility] Cardiothoracic Surgery 08/24/21 FOR RECORDS PERTAINING TO PATIENTS WHO ARE OR HAVE BEEN ENROLLED IN A CHEMICAL DEPENDENCY/SUBSTANCEABUSE PROGRAM, SOME INFORMATION MAY BE OMITTED. This clinical summary was aggregated from multiple sources. Caution should be exercised in using it in the provision of clinical care. This summary normalizes information from multiple sources, and as a consequence, information in this document may materially change the coding, format and clinical context of patient data. In addition, data may be omitted in some cases. CLINICAL DECISIONS SHOULD BE BASED ON THE PRIMARY CLINICAL RECORDS. [email or web address] provides no warranty or guarantee of the accuracy or completeness of information in this document.
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
[2023-08-17 19:16] LABS: Absolute Lymphocyte Count 3.05 X10^3/uL (0.83-4.51); Absolute Neutrophil Count 7.6 X10^3/uL (2.0-7.7); Basophil# 0.03 X10^3/uL; Basophil% 0.3 % (0-1); Eosinophil# 0.11 X10^3/uL; Eosinophils% 0.9 % (0-5); Hematocrit 48.7 % (37-47); Hemoglobin 15.1 g/dL (12.0-15.0); Lymphocyte # 3.05 X10^3/ul (0.83-4.51); Lymphocyte % 26.1 % (19-41); Mean Corpuscular Hgb 26.8 pg (27.0-32.0); Mean Corpuscular Volume 86.5 fL (81-99); Mean Platelet Vol. 9.6 fl (6.2-12.0); Monocyte# 0.78 X10^3/uL; Monocyte% 6.7 % (0-10); NRBC Flagged by Analyzer 0 % (0-5); Neutrophil # 7.61 X10^3/uL (2.7-7.7); Platelet Count 193 K/mm3 (150-450); RBC Distribution Width CV 14.3 % (11.6-14.6); RBC Distribution Width SD 45.5 fl (35.1-43.9); Red Blood Count 5.63 M/mm3 (4.2-5.4); White Blood Count 11.7 K/mm3 (4.4-11.0)
[2023-08-17 19:33] LABS: Anion Gap 5 (5-15); BUN 15 mg/dL (7-18); BUN/Creat Ratio 18.8 RATIO (10-20); Calcium,Total 8.7 mg/dL (8.5-10.1); Chloride 106 mmol/L (98-107); EST Glomerular Filtration Rate 72 mL/min (>60); Est Glom Filt Rate - Afr Amer 88 mL/min (>60); Glucose 102 mg/dL (74-106); Potassium 3.8 mmol/L (3.5-5.1); Sodium Level 139 mmol/L (136-145); Troponin-I HS (w/2H Reflex) 8 pg/mL (3.0-54.0)
[2023-08-17] MEDS: Dicyclomine 10 MG Capsule 20 MG PO (20:21)
[2023-08-17 20:22] VITALS: BP 121/75; PULSE 88; RESP 21
[2023-08-17 21:14] LABS: Reflex Troponin-HS? (from REC) Y
== END 2023-08-17 20:25 | disposition home or self-care (01) ==
PROVIDERS: Physician Assistant; Emergency Provider Emergency Medicine; Visit Provider Emergency Medicine
DX: R07.9 Chest pain, unspecified (principal); I25.10 Atherosclerotic heart disease of native coronary artery without angina pectoris; E03.9 Hypothyroidism, unspecified; Z79.899 Other long term (current) drug therapy; K21.9 Gastro-esophageal reflux disease without esophagitis; Z90.49 Acquired absence of other specified parts of digestive tract; Z95.5 Presence of coronary angioplasty implant and graft
CPT/HCPCS: 80048; 84484; 85025; 93005; 99284

== ENCOUNTER → 2023-09-09 | Outpatient (CLI) | payer MEDICARE, SELFPAY ==
[2023-09-09 12:27] LABS: Absolute Lymphocyte Count 2.46 X10^3/uL (0.83-4.51); Absolute Neutrophil Count 4.4 X10^3/uL (2.0-7.7); Basophil# 0.06 X10^3/uL; Basophil% 0.8 % (0-1); Eosinophil# 0.15 X10^3/uL; Eosinophils% 1.9 % (0-5); Hematocrit 47.5 % (37-47); Hemoglobin 14.6 g/dL (12.0-15.0); Lymphocyte # 2.46 X10^3/ul (0.83-4.51); Lymphocyte % 31.4 % (19-41); Mean Corp Hgb Conc 30.7 g/dL (32-36); Mean Corpuscular Hgb 26.6 pg (27.0-32.0); Mean Corpuscular Volume 86.7 fL (81-99); Mean Platelet Vol. 9.5 fl (6.2-12.0); Monocyte# 0.68 X10^3/uL; Monocyte% 8.7 % (0-10); NRBC Flagged by Analyzer 0 % (0-5); Neutrophil # 4.44 X10^3/uL (2.7-7.7); Neutrophil % 56.6 % (47-70); Platelet Count 192 K/mm3 (150-450); RBC Distribution Width SD 47.8 fl (35.1-43.9); Red Blood Count 5.48 M/mm3 (4.2-5.4); White Blood Count 7.8 K/mm3 (4.4-11.0)
[2023-09-09 12:57] LABS: BNP,B-Type NATRIURETIC PEPTIDE 32.3 pg/mL (0-100)
[2023-09-09 13:00] LABS: Vitamin D,25 Hydroxy 54.9 ng/mL
[2023-09-09 14:21] LABS: Anion Gap 5 (5-15); BUN 8 mg/dL (7-18); Calcium,Total 9.1 mg/dL (8.5-10.1); Chloride 108 mmol/L (98-107); Creatinine, Serum 0.73 mg/dL (0.55-1.02); EST Glomerular Filtration Rate 80 mL/min (>60); Est Glom Filt Rate - Afr Amer 97 mL/min (>60); Free T3 2.2 pg/mL (2.18-3.98); Glucose 101 mg/dL (74-106); Sodium Level 142 mmol/L (136-145); T4 Free Direct 0.99 ng/dL (0.76-1.46); Thyroid Stim Hormone (TSH) 1.76 uIU/mL (0.358-3.74)
== END | disposition home or self-care (01) ==
LOC: LAB 11:58
PROVIDERS: Referring Provider Nurse Practitioner Gerontology; Visit Provider Nurse Practitioner Gerontology
DX: R53.83 Other fatigue (principal); E55.9 Vitamin D deficiency, unspecified; R06.09 Other forms of dyspnea
CPT/HCPCS: 36415; 80048; 82306; 83880; 84439; 84443; 84481; 85025

== ENCOUNTER → 2023-11-29 | Outpatient (CLI) | payer MEDICARE, SELFPAY ==
[2023-11-29 13:11] LABS: Absolute Lymphocyte Count 2.25 X10^3/uL (0.83-4.51); Absolute Neutrophil Count 4.6 X10^3/uL (2.0-7.7); Basophil# 0.06 X10^3/uL; Basophil% 0.8 % (0-1); Eosinophil# 0.39 X10^3/uL; Eosinophils% 4.9 % (0-5); Hematocrit 43.4 % (37-47); Hemoglobin 13.3 g/dL (12.0-15.0); Lymphocyte # 2.25 X10^3/ul (0.83-4.51); Lymphocyte % 28.5 % (19-41); Mean Corp Hgb Conc 30.6 g/dL (32-36); Mean Corpuscular Hgb 27.8 pg (27.0-32.0); Mean Corpuscular Volume 90.6 fL (81-99); Mean Platelet Vol. 10.3 fl (6.2-12.0); Monocyte% 7.6 % (0-10); NRBC Flagged by Analyzer 0 % (0-5); Neutrophil # 4.57 X10^3/uL (2.7-7.7); Neutrophil % 57.8 % (47-70); Platelet Count 246 K/mm3 (150-450); RBC Distribution Width CV 13.6 % (11.6-14.6); RBC Distribution Width SD 45.4 fl (35.1-43.9); Red Blood Count 4.79 M/mm3 (4.2-5.4); White Blood Count 7.9 K/mm3 (4.4-11.0)
[2023-11-29 13:45] LABS: Anion Gap 4 (5-15); BUN 6 mg/dL (7-18); BUN/Creat Ratio 7.8 RATIO (10-20); Chloride 109 mmol/L (98-107); Creatinine, Serum 0.76 mg/dL (0.55-1.02); EST Glomerular Filtration Rate 76 mL/min (>60); Est Glom Filt Rate - Afr Amer 92 mL/min (>60); Glucose 110 mg/dL (74-106); Potassium 3.6 mmol/L (3.5-5.1); Sodium Level 141 mmol/L (136-145)
[2023-11-29 13:49] LABS: BNP,B-Type NATRIURETIC PEPTIDE 27.3 pg/mL (0-100)
== END | disposition home or self-care (01) ==
LOC: LAB 11:44
PROVIDERS: Referring Provider Nurse Practitioner Gerontology; Visit Provider Nurse Practitioner Gerontology
DX: R53.83 Other fatigue (principal); R06.09 Other forms of dyspnea
CPT/HCPCS: 36415; 80048; 83880; 85025

== ENCOUNTER 2024-10-15 14:20 | Emergency (ER) | payer MEDICARE, SELFPAY ==
[2024-10-15 14:22] VITALS: BP 168/91; PULSE 74; RESP 18; TEMP 36.6; O2SAT 95; BMI 29.0
[2024-10-15 15:00] VITALS: BP 178/88
[2024-10-15] MEDS: Lidocaine 1% (20 ml mdv) 20 ML Vial INFILT (15:09)
--- NOTE | 2024-10-15 15:10 | CT_ITS ---
PROCEDURE: BRAIN/HEAD WITHOUT CONTRAST 10/15/2024 REASON FOR EXAM: CLOSED HEAD INJURY, HEADACHE, LOSS OF CONSCIOUSNES TECHNIQUE: Multiple axial tomographic images were obtained without intravenous contrast administration. Coronal and sagittal reconstruction were obtained. CT DL volume: 47.06. DLP: 855.03 COMPARISON: None FINDINGS: Mild degree of cerebral atrophy. Mild degree of cerebellar atrophy. Bilateral decreased attenuation in the periventricular manner suggestive of chronic small-vessel disease. Faint calcifications in the basal ganglia bilaterally. This is a normal variant for the patient's age. CT/Brain/Head without Contrast IMPRESSION: Cerebral atrophy. Chronic changes. Reading Location: [facility]
[2024-10-15 15:30] VITALS: BP 167/81; O2SAT 93
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
[2024-10-15 16:00] VITALS: BP 145/67; O2SAT 96
[2024-10-15 16:30] VITALS: BP 138/64; O2SAT 91
[2024-10-15 16:45] VITALS: O2SAT 92
== END 2024-10-15 18:13 | disposition home or self-care (01) ==
PROVIDERS: Emergency Provider Emergency Medicine; Visit Provider Emergency Medicine
DX: S06.0X1A Concussion with loss of consciousness of 30 minutes or less, initial encounter (principal); I25.10 Atherosclerotic heart disease of native coronary artery without angina pectoris; Z79.82 Long term (current) use of aspirin; I10 Essential (primary) hypertension; Z95.5 Presence of coronary angioplasty implant and graft; S01.81XA Laceration without foreign body of other part of head, initial encounter; W01.10XA Fall on same level from slipping, tripping and stumbling with subsequent striking against unspecified object, initial encounter; Y93.01 Activity, walking, marching and hiking; Y92.531 Health care provider office as the place of occurrence of the external cause; E03.9 Hypothyroidism, unspecified; Z79.890 Hormone replacement therapy; Z79.899 Other long term (current) drug therapy; K21.9 Gastro-esophageal reflux disease without esophagitis; Z90.49 Acquired absence of other specified parts of digestive tract
CPT/HCPCS: 12011; 70450; 99285

== ENCOUNTER → 2025-03-02 | Outpatient (CLI) | payer MEDICARE, SELFPAY ==
[2025-03-02 12:37] LABS: Hematocrit 46.2 % (37-47); Hemoglobin 14.5 g/dL (12.0-15.0); Mean Corp Hgb Conc 31.4 g/dL (32-36); Mean Corpuscular Volume 88.2 fL (81-99); Mean Platelet Vol. 10.5 fl (6.2-12.0); Platelet Count 200 K/mm3 (150-450); RBC Distribution Width CV 13.7 % (11.6-14.6); RBC Distribution Width SD 44.3 fl (35.1-43.9); Red Blood Count 5.24 M/mm3 (4.2-5.4); White Blood Count 5.9 K/mm3 (4.4-11.0)
[2025-03-02 13:15] LABS: AST(SGOT) 31 U/L (<=31); Alanine Aminotransfer ALT/SGPT 25 U/L (<=34); Albumin, Serum 4.2 g/dL (3.4-4.8); Alkaline Phosphatase 168 U/L (35-104); Anion Gap 10 (5-15); BUN 6 mg/dL (4-19); BUN/Creat Ratio 8.4 RATIO (10-20); Calcium,Total 9.3 mg/dL (7.6-11.0); Carbon Dioxide 26.4 mmol/L (21.0-32.0); Chloride 105 mmol/L (98-108); Globulin 2.5 g/dL (2.2-4.2); Glucose 102 mg/dL (70-99); Potassium 4.4 mmol/L (3.3-5.1); Vitamin B12 345 pg/mL (180-914)
[2025-03-05 14:08] LABS: Vitamin D 1,25-Dihydroxy 60.7 pg/mL (24.8-81.5)
[2025-03-07 12:08] LABS: Vitamin B1, Thiamine 131.8 nmol/L (66.5-200.0)
== END | disposition home or self-care (01) ==
LOC: MTLAB 09:33
PROVIDERS: PCP Nurse Practitioner Family; Referring Provider Psychiatry & Neurology Neurology; Visit Provider Psychiatry & Neurology Neurology
DX: G62.9 Polyneuropathy, unspecified (principal); E03.9 Hypothyroidism, unspecified
CPT/HCPCS: 36415; 80053; 82607; 82652; 83883; 84425; 84439; 84443; 85027

== ENCOUNTER → 2025-04-14 | Outpatient (CLI) | payer MEDICARE, SELFPAY ==
--- NOTE | 2025-04-14 13:32 | NEURO ---
NCS and/or EMG Patient Report Ordering Doctor: Rudolph Smith DATE OF SERVICE: 04/14/25 Brandie presents with complaints of numbness and tingling in both lower legs. Electrodiagnostic findings: Peroneal motor nerve demonstrates prolonged distal latency bilaterally with reduced amplitudes. There is reduced conduction velocity on the right side, without evidence of conduction block at the fibular head. Tibial motor latency is prolonged bilaterally with reduced amplitude on the left side. Borderline reduced tibial conduction velocity bilaterally. Prolonged right sural latency is noted. Prolonged right superficial peroneal latency. Prolonged tibial and peroneal F?waves. H?reflexes prolonged bilaterally. Needle EMG testing was performed in the lower limbs. Neurogenic motor units noted bilaterally in the tibialis anterior and gastrocnemius. Electrodiagnostic impression: This is an abnormal study. 1. 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 2. No electrodiagnostic evidence is noted for lumbosacral radiculopathy. Multi Select Codes Neurology Neurology Interp Codes: 19760-23 Musc test done w/n test comp (interp) (2) and 57392-30 Nrv cndj test 9-10 studies (interp)
== END | disposition home or self-care (01) ==
LOC: PSN 11:01
PROVIDERS: PCP Nurse Practitioner Family; Referring Provider Psychiatry & Neurology Neurology; Visit Provider Psychiatry & Neurology Neurology
DX: R20.2 Paresthesia of skin (principal); R20.0 Anesthesia of skin; G62.9 Polyneuropathy, unspecified; Z98.890 Other specified postprocedural states
CPT/HCPCS: 95886; 95911

== ENCOUNTER → 2025-04-28 | Outpatient (CLI) | payer MEDICARE, SELFPAY ==
--- NOTE | 2025-04-28 11:16 | NEURO ---
NCS and/or EMG Patient Report Ordering Doctor: Rudolph Smith DATE OF SERVICE: 04/28/25 Brandie presents complaints of numbness tingling and weakness in the left hand. Electrodiagnostic findings: Left median motor response could not be obtained. Left ulnar motor response demonstrates normal distal latency amplitude and conduction velocity. Normal conduction velocity noted across the elbow. Normal left ulnar F?wave. Absent left median sensory latency at the wrist. Needle EMG testing was performed the left upper limb. 1+ fibrillations noted in the abductor pollicis brevis. Motor units of normal amplitude and duration Electrodiagnostic assessment: This is an abnormal study in the left upper limb. 1. 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 This consistent with a severe left carpal tunnel syndrome. Multi Select Codes Neurology Neurology Interp Codes: 15239-27 Musc test done w/n test comp (interp) and 93777-91 Nrv cndj tst 5-6 studies (interp)
--- NOTE | 2025-04-28 11:16 | NEURO ---
NCS and/or EMG Patient Report Ordering Doctor: Rudolph Smith DATE OF SERVICE: 04/28/25 Brandie presents complaints of numbness tingling and weakness in the left hand. Electrodiagnostic findings: Left median motor response could not be obtained. Left ulnar motor response demonstrates normal distal latency amplitude and conduction velocity. Normal conduction velocity noted across the elbow. Normal left ulnar F?wave. Absent left median sensory latency at the wrist. Needle EMG testing was performed the left upper limb. 1+ fibrillations noted in the abductor pollicis brevis. Motor units of normal amplitude and duration Electrodiagnostic assessment: This is an abnormal study in the left upper limb. 1. 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 This consistent with a severe left carpal tunnel syndrome. Multi Select Codes Neurology Neurology Interp Codes: 22101-94 Musc test done w/n test comp (interp) and 76047-10 Nrv cndj tst 5-6 studies (interp)
--- OUTSIDE RECORDS SUMMARY | 2025-04-29 23:11 | XMS RPT_ITS | CCD ---
Author Organization [facility] Care Team Providers Care Firearms Assembly Supervisor Name Role Phone Tosha Xavier Unavailable KARINA DARNELL Unavailable Unavailable KARINA DARNELL Unavailable Unavailable TOSHA XAVIER Unavailable Unavailable TOSHA XAVIER Unavailable Unavailable REHAN HAIRSTON Unavailable UnavailREHAN Mireles Unavailable UnavailTOSHA Morfin Unavailable Unavailable Efren Atwood Unavailable [phone] Vielka Nicholas Unavailable Tosha Xavier Primary Care Provider Tosha Xavier Primary Care Provider Tosha Xavier Primary Care Provider Efren Atwood MD Unavailable [phone] Vielka Nicholas MD Unavailable Tosha Xavier CNP Primary Care Provider [phone] Tosha Xavier CNP Primary Care Provider Efren Atwood MD Unavailable Vielka Nicholas MD Unavailable Bret Kirby MD Unavailable Dr. All Cast Attending Provider [facility] Doctor, Out of Primary Care Provider Naeem back [facility] Doctor, Out of Referring Provider Unavailab chidi Xavier RECREATION FACILITY ATTENDANT, RECREATION FACILITY ATTENDANT-C Tosha Primary Care Provider Dr. All Cast Other Provider Dr. Rachael Reed Attending Provider Dr. All Cast Admit Provider Dr. Linwood Rg Attending Provider Dr. All Cast Referring Provider Purkey RECREATION FACILITY ATTENDANT, RECREATION FACILITY ATTENDANT-C Tosha Referring Provider Dr. Isac Interiano Attending Provider Dr. Olinda Kramer Emergency Provider Dr. Joan Davison Admit Provider Dr. Joan Davison Other Provider Mihai THAKUR, RECREATION FACILITY ATTENDANT-C Diana Attending Provider Dr. Linwood Rg Other Provider Jose, Dr. Shipman Attending Provider Dr. Judie Mishra Other Provider Dr. Judie Mishra Attending Provider Dr. All Cast Attending Provider Dr. Joan Davison Attending Provider Dr. Judie Mishra Referring Provider PALOMA Denton Attending Provider PALOMA Denton Referring Provider PALOMA Denton Other Provider Efren Atwood MD Unavailable Cristopher ANDERSON, Vielka Unavailable Bret Kirby MD Unavailable Morenita MACIEL, Tosha Nunez Primary Care Provider Purkey RECREATION FACILITY ATTENDANT, RECREATION FACILITY ATTENDANT-C Tosha Primary Care Provider Purkey RECREATION FACILITY ATTENDANT, RECREATION FACILITY ATTENDANT-C Tosha Referring Provider Dr. All Cast Attending Provider Dr. All Cast Referring Provider Dr. All Cast Other Provider Roof RECREATION FACILITY ATTENDANT, RECREATION FACILITY ATTENDANT-C Lyudmila H Attending Provider Purkey RECREATION FACILITY ATTENDANT, RECREATION FACILITY ATTENDANT-C Tosha Primary Care Provider Purkey RECREATION FACILITY ATTENDANT, RECREATION FACILITY ATTENDANT-C Tosha Referring Provider PALOMA Denton Attending Provider MD Fred Norton Emergency Provider Dr. Joan Davison Attending Provider Dr. Joan Davison Admit Provider Dr. Joan Davison Other Provider Dr. Jennifer Bernard Attending Provider Dr. Jennifer Bernard Other Provider Jose, Dr. Shipman Attending Provider Dr. Eloisa Delgado Attending Provider Dr. Eloisa Delgado Other Provider Purkey RECREATION FACILITY ATTENDANT, RECREATION FACILITY ATTENDANT-C Tosha Primary Care Provider PALOMA Denton Referring Provider PALOMA Denton Other Provider Dr. All Cast Attending Provider Dr. All Cast Referring Provider Dr. All Cast Other Provider Roof RECREATION FACILITY ATTENDANT, RECREATION FACILITY ATTENDANT-C Lyudmila H Attending Provider Purkey RECREATION FACILITY ATTENDANT, RECREATION FACILITY ATTENDANT-C Tosha Referring Provider PALOMA Denton Attending Provider MD Fred Norton Emergency Provider Dr. Joan Davison Attending Provider Dr. Joan Davison Admit Provider Dr. Joan Davison Other Provider Dr. Jennifer Bernard Attending Provider Dr. Jennifer Bernard Other Provider Jose, Dr. Shipman Attending Provider Dr. Eloisa Delgado Referring Provider Dr. Eloisa Delgado Attending Provider Dr. Eloisa Delgado Other Provider Dr. Jose Gorman Attending Provider Rai ANDERSON, Efren Unavailable Cristopher ANDERSON, Vielka Unavailable Tosha Xavier CNP Primary Care Provider Kofi ANDERSON, Bret Unavailable TOSHA XAVIER Consulting Unavailable QUANG SALAS Attending Unavailable QUANG SALAS Primary Care Unavailable QUANG SALAS Admitting Unavailable PROVIDER, UNKNOWN Consulting Unavailable Morenita RECREATION FACILITY ATTENDANT, RECREATION FACILITY ATTENDANT-C Tosha Primary Care Provider Morenita RECREATION FACILITY ATTENDANT, RECREATION FACILITY ATTENDANT-C Tosha Referring Provider Johnny RECREATION FACILITY ATTENDANT, RECREATION FACILITY ATTENDANT-C Lyudmila Herrera Attending Provider Morenita RECREATION FACILITY ATTENDANT, RECREATION FACILITY ATTENDANT-C Tosha Primary Care Provider Morenita RECREATION FACILITY ATTENDANT, RECREATION FACILITY ATTENDANT-C Tosha Referring Provider Tyrone RECREATION FACILITY ATTENDANT, RECREATION FACILITY ATTENDANT-C Pat Attending Provider Morenita RECREATION FACILITY ATTENDANT, RECREATION FACILITY ATTENDANT-C Tosha Primary Care Provider Morenita RECREATION FACILITY ATTENDANT, RECREATION FACILITY ATTENDANT-C Tosha Referring Provider Tyrone RECREATION FACILITY ATTENDANT, RECREATION FACILITY ATTENDANT-C Pat Attending Provider Morenita JINN - JANELL, Tosha Primary Care Provider [phone] Carolyn MIX, Michele Unavailable Unavailable Carolyn MIX, Michele Unavailable Unavailable MAURA MERCADO Primary Care Unavailable DIANA MORALES APRN Consulting Unavailabl e MORALES SPIN TABLE OPERATOR~[id number], JOVANI Nunez Attending Unavailable MORALES SPIN TABLE OPERATOR~[id number], JOVANI Nunez Admitting Unavailable MORALES SPIN TABLE OPERATOR, DIANA M Consulting Unavailabl e JESS, MAURA Consulting Unavailable JESS, MAURA Consulting Unavailable MORALES SPIN TABLE OPERATOR~[id number], JOVANI Nunez Attending Unavailable MORALES SPIN TABLE OPERATOR~[id number], JOVANI VALENCIA M Admitting Unavailable JESS, MAURA Primary Care Unavailable MORALES SPIN TABLE OPERATOR, DIANA M Consulting Unavailabl e MORALES SPIN TABLE OPERATOR, DIANA M Consulting Unavailabl e JESS, MAURA Consulting Unavailable JESS, MAURA Consulting Unavailable JESS, MAURA Consulting Unavailable JESS, MAURA Primary Care Unavailable MORALES SPIN TABLE OPERATOR~[id number], JOVANI Nunez Attending Unavailable MORALES SPIN TABLE OPERATOR~[id number], JOVANI ROMEOSSICA M Admitting Unavailable JESS, MAURA Consulting Unavailable Pat THAKUR, Alysia Sage Attending Unavailable TIFFANI OSBORN MD Admitting Unavailable TIFFANI OSBORN MD Attending Unavailable TIFFANI OSBORN MD Primary Care Unavailable DENIS CABALLERO JR Admitting Unavailable DENIS CABALLERO JR Attending Unavailable DENIS CABALLERO JR Primary Care Unavailable PURKEY, TOSHA ACQUISITION ADVISOR Consulting Unavailable PURKEY, TOSHA JOSE Referring Unavailable PROVIDER, UNKNOWN Consulting Unavailable PURKEY, TOSHA ACQUISITION ADVISOR Admitting Unavailable PURKEY, TOSHA ACQUISITION ADVISOR Attending Unavailable PURKEY, TOSHA ACQUISITION ADVISOR Primary Care Unavailable PURKEY, TOSHA ACQUISITION ADVISOR Consulting Unavailable PROVIDER, UNKNOWN Consulting Unavailable JESS RECREATION FACILITY ATTENDANT, MAURA Primary Care Provider Dr. Souleymane Keys MD Emergency Provider Unavailable Primary Care Provider UnavailPOLLO Huang Attending Unavailable MELITA, LOS Admitting Unavailable MELITA, LOS Attending Unavailable MORENITA TOSHA Primary Care Unavailable Dr. Souleymane Keys MD Attending Provider Schuyler RECREATION FACILITY ATTENDANT-C, Maura Primary Care Provider [phone] Schuyler RECREATION FACILITY ATTENDANT-C, Maura Referring Provider Segun ANDERSON, Dr. Carrizales Attending Provider [phone] Jess RECREATION FACILITY ATTENDANT-C, Maura Attending Provider [phone] Pursamina RECREATION FACILITY ATTENDANT-C, Tosha Referring Provider Sarah ANDERSON, Dr. Galdamez Attending Provider Dr. Rudolph Smith MD Referring Provider [phone] Baddour, Rudolph Referring Unavailable Jess, Maura Primary Care Unavailable Baddour, Rudolph Attending Unavailable Schuyler, Maura Primary Care Unavailable Jess, Maura Attending Unavailable Schuyler, Maura Referring Unavailable Baddour, Rudolph Referring Unavailable Schuyler, Maura Primary Care Unavailable Baddour, Rudolph Attending Unavailable Purkey, Tosha Referring Unavailable Segun, All Attending Unavailable RANDALL, DIANA Primary Care Unavailable Segun, All Attending Unavailable Jess, Maura Primary Care Unavailable Jess, Maura Referring Unavailable Baddour, Rudolph Consulting Unavailable Jess, Maura Primary Care Unavailable Ahmad, Arsal Attending Unavailable Baddour, Rudolph Referring Unavailable Purkey, Tosha Referring Unavailable Schuyler, Maura Primary Care Unavailable Baddour, Rudolph Attending Unavailable RANDALL, DIANA Primary Care Unavailable Keys, Souleymane Attending Unavailable Baddour, Rudolph Attending Unavailable Schuyler, Maura Primary Care Unavailable Baddour, Rudolph Referring Unavailable SMILO, LYUDMILA Referring Unavailable SMILO, LYUDMILA Attending Unavailable Allergies Allergy Classification Reported Allergen(s) Allergy Type Date of Onset Reaction(s) Facility Opioid Agonists (2 sources) Codeine Drug Allergy 1 Nausea And Vomiting [facility] Penicillins (antibiotic) (2 sources) Penicillins Drug Allergy 1 Hives [facility] Unclassified (2 sources) Bee Propensity to adverse reactions to drug 1 [facility] (20 sources) codeine; 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: [CODEINE] Propensity to adverse reactions to drug 1 GI Intolerance, Nausea And Vomiting, Hives, Swelling [facility] (20 sources) Penicillins; 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: [PENICILLINS] Propensity to adverse reactions to drug 1 Hives [facility] (11 sources) Bee Propensity to adverse reactions to drug 1 [facility] (6 sources) Penicillins Propensity to adverse reactions to drug 1 Hives [facility] (1 source) Penicillins Propensity to adverse reactions to drug 1 Hives [facility] (2 sources) Codeine Drug Allergy [facility] (2 sources) Penicillin Drug Allergy [facility] (2 sources) Penicillins Drug allergy (disorder) [facility] (6 sources) Isosorbide Drug Allergy 4 Dizzy, nausea, headache [facility] (4 sources) bee venom Allergy to substance 4 Swelling [facility] (4 sources) Isosorbide Drug Allergy 4 [facility] (4 sources) Penicillins Drug Intolerance 1 Hives, Rash [facility] (1 source) Codeine Drug Allergy 5 [facility] (1 source) Isosorbide Drug Allergy 5 [facility] (1 source) Penicillins Drug allergy (disorder) 5 [facility] Medications Current Medications Medication Drug Class(es) Dates Sig (Normalized) Sig (Original) apixaban 5 mg oral tablet (3 sources) Factor Xa Inhibitor apixaban (ELIQUIS) 5 mg Tab Take by mouth 2 (two) times a day. 0 Active ascorbic acid 1000 mg oral tablet (10 sources) Vitamin C Start: 05-05-2022 take 1 tablet by mouth at bedtime Ascorbic Acid (Vitamin C) (Vitamin C) 1,000 mg Tablet Active 1000 mg PO AT BEDTIME May 05, 2022 12:00am vitamin aspirin 81 mg delayed release oral tablet (20 sources) Platelet Aggregation Inhibitor, Nonsteroidal Anti-inflammatory Drug Start: 11-18-2024 End: 11-18-2024 take 324 mg by mouth once 324 mg, Oral, Once, On Sat11/18/24 at 1140, For 1 dose Start: 10-06-2021 End: 12-24-2024 take 1 tablet by mouth at breakfast Aspirin 81 mg Tablet,Delayed Release (Dr/Ec) Discontinued 81 mg PO WITH BREAKFAST 30 30 0 November 23, 2021 12:00am May 28, 2022 9:51am cefdinir 300 mg oral capsule (19 sources) Cephalosporin Antibacterial Start: 11-18-2023 take 1 capsule by mouth twice daily cefdinir 300 mg capsule take1 capsule by mouth twice a day - Active Start: 10-05-2021 End: 10-06-2021 take 1 capsule by mouth twice daily Cefdinir 300 mg capsule Discontinued 300 mg PO TWICE A DAY October 05, 2021 1:00am October 06, 2021 11:43am clotrimazole 10 mg/ml topical cream (19 sources) Azole Antifungal Start: 08-13-2023 clotrimazole 1 % topical cream - Active Start: 10-05-2021 End: 10-06-2021 Clotrimazole 10 mg morris Di scontinued 10 mg MUCOUS MEM THREE TIMES A DAY October 05, 2021 1:00am October 06, 2021 11:45am 24 hr diclofenac sodium 100 mg extended release oral tablet (20 sources) Nonsteroidal Anti-inflammatory Drug Start: 10-18-2023 diclofenac ER 100 mg tablet,extended release 24 hr - Active Start: 09-20-2023 diclofenac sod ium 50 mg tablet,delayed release - Active Start: 10-05-2021 End: 10-06-2021 take 1 tablet by mouth every twelve hours as needed Diclofenac Sodium 50 mg tablet,delayed release (DR/EC) Discontinued 50 mg PO Q12H as needed October 05, 2021 1:00am October 06, 2021 11:47am DULoxetine 30 mg delayed release oral capsule (2 sources) Serotonin and Norepinephrine Reuptake Inhibitor Start: 02-09-2025 take 1 capsule by mouth once daily Duloxetine 30 mg capsule,delayed release(DR/EC) Active 30 mg PO DAILY 7 0 February 09, 2025 12:00am Start: 02-09-2025 [facility] capsule [facility] daily Duloxetine 60 mg capsule,delayed release(DR/EC) Active 60 mg PO daily 30 5 February 09, 2025 12:00am Begin after completing one week course of duloxetine 30mg daily. fluconazole 100 mg oral tablet (19 sources) Azole Antifungal Start: 08-13-2023 fluconazole 1 00 mg tablet - Active Start: 10-05-2021 End: 10-06-2021 take 1 tablet by mouth once daily Fluconazole 100 mg tablet Discontinued 100 mg PO DAILY October 05, 2021 1:00am October 06, 2021 11:47am hydroCHLOROthiazide 12.5 mg oral tablet (8 sources) Thiazide Diuretic take 1 tablet by mouth once daily as needed hydrochlorothiazide (HYDRODIURIL) 12.5 MG tablet Take 12.5 mg by mouth daily as needed (for swelling). 0 Active hydroCHLOROthiazide 12.5 mg / losartan potassium 50 mg oral tablet (3 sources) Thiazide Diuretic, Angiotensin 2 Receptor Margaret take 1 tablet by mouth once daily losartan-hydrochlorothia zide (HYZAAR) 50-12.5 mg per tablet Take 1 tablet by mouth daily. 0 Active hydrOXYzine hydrochloride 10 mg oral tablet (2 sources) Antihistamine Start: 2023 hydroxyzine HCl 10 mg tablet - Active levoFLOXacin 500 mg oral tablet (2 sources) Quinolone Antimicrobial Start: 2022 levofloxacin 500 mg tablet - Active meclizine hydrochloride 25 mg oral tablet (17 sources) Antiemetic Start: 2024 take 1 tablet by mouth three times daily as needed Meclizine 25 mg tablet Active 25 mg PO THREE TIMES A DAY as needed February 09, 2025 12:00am Start: 01-14-2024 take 1 tablet by cruz th three times daily as needed meclizine 25 mg tablet TAKE ONE TABLET BY MOUTH THREE TIMES DAILY NEEDED FOR VERTIGO] - Active take 1 tablet by cruz th three times daily as needed for dizziness meclizine (ANTIVERT) 25 MG tablet Take 25 mg by mouth 3 times daily as needed for Dizziness. 0 Active methylPREDNISolone 4 mg oral tablet (2 sources) Corticosteroid Start: 05-11-2024 Medrol (Hector) 4 mg tablets in a dose pack take by oral route as directed per package instructions 0.00 - Active metoprolol tartrate 25 mg oral tablet (20 sources) beta-Adrenergic Margaret Start: 04-13-2024 take 1 tablet by mouth once daily Metoprolol Tartrate 25 mg tablet Active 25 mg PO DAILY October 15, 2024 12:00am Start: 10-23-2023 End: 12-24-2024 take 1 tablet by mouth once daily metoprolol succinate XL (Toprol-XL) 25 MG 24 hr tablet Take 12.5 mg by mouth daily. 10/23/2023 12/24/2024 Discontinued (Med list cleanup) Start: 10-23-2023 metoprolol suc cinate ER 25 mg tablet,extended release 24 hr - Active Start: 10-31-2021 End: 10-15-2024 take 2 tablets by mouth once daily Metoprolol Succinate 25 mg tablet extended release 24 hr Discontinued 12.5 mg PO DAILY 45 January 20, 2024 8:24am October 15, 2024 2:29pm Start: 10-31-2021 End: 01-02-2023 take 12.5 mg by mouth once daily Metoprolol Succinate Active 12.5 MG PO DAILY January 02, 2023 10:24am omeprazole 40 mg delayed release oral capsule (6 sources) Proton Pump Inhibitor Start: 04-13-2024 take 1 capsule by mouth once daily Omeprazole 40 mg capsule,delayed release(DR/EC) Active 40 mg PO DAILY October 15, 2024 12:00am potassium chloride 10 meq extended release oral tablet (9 sources) Start: 12-18-2023 take 1 tablet by mouth once daily Potassium Chloride 10 mEq tablet extended release Active 10 meq PO DAILY October 15, 2024 12:00am predniSONE 10 mg oral tablet (20 sources) Start: 08-13-2023 prednisone 10 mg tablet - Active Start: 05-13-2023 prednisone 5 m g tablet - Active Start: 10-05-2021 End: 10-06-2021 take 1 tablet by mouth twice daily Prednisone 10 mg tablet Discontinued 10 mg PO TWICE A DAY October 05, 2021 1:00am October 06, 2021 11:48am 12 hr ranolazine 500 mg extended release oral tablet (7 sources) Anti-anginal Start: 08-21-2023 ranolazine ER 500 mg tablet,extended release,12 hr - Active Start: 08-20-2023 End: 11-29-2023 take 1 tablet by mouth twice daily Ranolazine 500 mg tablet extended release 12 hr Discontinued 500 mg PO TWICE A DAY 180 August 20, 2023 1:00am November 29, 2023 11:06am tamsulosin hydrochloride 0.4 mg oral capsule (2 sources) alpha-Adrenergic Margaret Start: 10-28-2023 take 1 capsule by mouth twice daily tamsulosin 0.4 mg capsule take 1 capsule by mouth twice daily - Active timolol 0.005 mg/mg ophthalmic gel (6 sources) beta-Adrenergic Margaret Start: 02-09-2025 Timolol Maleate 0.5 % gel forming solution Active 1 NMA OPHTHALMIC TWICE A DAY February 09, 2025 9:02am Start: 10-15-2024 End: 02-09-2025 Timolol Maleate 0.5 % gel fo rming solution Discontinued 1 NMA OPHTHALMIC DAILY October 15, 2024 12:00am February 09, 2025 9:04am take 1 drop(s) into the eye(s) twice daily timolol (Timoptic) 0.5 % ophthalmic solution 1 drop 2 times daily. Active tiZANidine 2 mg oral tablet (2 sources) Central alpha-2 Adrenergic Agonist Start: 09-20-2023 tizanidine 2 mg tabl et - Active Completed/Discontinued Medications Medication Drug Class(es) Dates Sig (Normalized) Sig (Original) Acetaminophen (2 sources) Start: 11-18-2024 End: 11-19-2024 take 1 tablet by mouth every six hours as needed for pain and fever acetaminophen (Tylenol) tablet 650 mg acetaminophen 325 mg / HYDROcodone bitartrate 5 mg oral tablet (17 sources) Opioid Agonist Start: 10-05-2021 End: 10-06-2021 Hydrocodone-Acetami nophen 5-325 mg tablet Discontinued 1 {tbl} PO Q8H as needed 0 October 05, 2021 1:00am October 06, 2021 11:47am Start: 10-05-2021 End: 10-06-2021 take 1 tablet by mouth every eight hours Hydrocodone-Acetaminophen Discontinued 1 TABLET PO Q8H October 05, 2021 1:00am October 06, 2021 11:47am ALPRAZolam 0.25 mg oral tablet (17 sources) Benzodiazepine Start: 10-05-2021 End: 10-06-2021 take 1 tablet by mouth twice daily as needed Alprazolam 0.25 mg tablet Discontinued 0.25 mg PO TWICE A DAY as needed October 05, 2021 1:00am October 06, 2021 11:43am amLODIPine 2.5 mg oral tablet (20 sources) Dihydropyridine Calcium Channel Margaret Start: 09-09-2023 End: 11-29-2023 take 1 tablet by mouth once daily Amlodipine (Norvasc) 2.5 mg tablet Discontinued 2.5 mg PO DAILY 25 01September 09, 2023 1:00am November 29, 2023 11:06am take 1 tablet by mouth once sugar y amlodipine (NORVASC) 5 MG tablet Take 5 mg by mouth daily. 0 Active atorvastatin 40 mg oral tablet (20 sources) HMG-CoA Reductase Inhibitor Start: 11-18-2024 End: 11-19-2024 take 40 mg by mouth once daily 40 mg, Oral, Nightly, First dose on Sat11/18/24 at 2100 Start: 10-15-2024 take 1 tablet by cruz th once daily Atorvastatin 20 mg tablet Active 20 mg PO DAILY October 15, 2024 12:00am Start: 01-14-2024 take 1 tablet by cruz th once daily atorvastatin 20 mg tablet take 1 tablet by mouth daily - Active Start: 10-31-2021 End: 10-15-2024 take 1 tablet by mouth at bedtime Atorvastatin 10 mg tablet Discontinued 0 .ROUTE .COMPLEX 90 January 20, 2024 4:06pm October 15, 2024 2:29pm TAKE 1 TABLET BY MOUTH AT BEDTIME bisacodyl 10 mg rectal suppository (2 sources) Stimulant Laxative Start: 11-18-2024 End: 11-19-2024 take 10 mg rectal route every twenty-four hours as needed for constipation 10 mg, Rectal, Daily PRN, constipation, Starting on Sat11/18/24 at 1734, 2nd line for treatment of constipation - give scheduled (in addition to 1st line agent) if no bowel movement in past 48 hours bumetanide 1 mg oral tablet (20 sources) Loop Diuretic Start: 11-19-2024 End: 12-24-2024 take 1 mg by mouth every other day 1 mg, Oral, Every other day, First dose on Sat11/19/24 at 0900 Start: 12-16-2023 End: 10-15-2024 take 1 tablet by mouth once daily Bumetanide 1 mg tablet Discontinued 1 mg PO DAILY 25 10December 16, 2023 12:00am October 15, 2024 2:27pm Start: 10-05-2021 End: 10-06-2021 take 1 tablet by mouth once daily Bumetanide 1 mg tablet Discontinued 1 mg PO DAILY October 05, 2021 1:00am October 06, 2021 11:43am clopidogrel 75 mg oral tablet (20 sources) [id number] Platelet Inhibitor Start: 05-28-2022 End: 05-01-2023 take 1 tablet by mouth once daily Clopidogrel (Plavix) 75 mg tablet Discontinued 75 mg PO DAILY May 28, 2022 12:00am May 01, 2023 10:16am On Hold: Resume on 04/16/23. Start: 11-22-2021 End: 11-23-2021 take 1 tablet by mouth once daily Clopidogrel 75 mg tablet Discontinued 75 mg PO DAILY November 22, 2021 12:00am November 23, 2021 1:51pm BLOOD THINNER dicyclomine hydrochloride 10 mg oral capsule (8 sources) Anticholinergic Start: 2023 End: 10-15-2024 take 1 capsule by mouth every six hours as needed for pain Dicyclomine 10 mg capsule Discontinued 10 mg PO EVERY 6 HOURS NEEDED as needed for abdominal pain 2023 9:17pm October 15, 2024 2:27pm docusate sodium 50 mg oral capsule (4 sources) End: 12-24-2024 take 1 capsule by mouth once daily docusate sodium (Colace) 50 MG capsule Take 50 mg by mouth daily. Takes generic 12/24/2024 Discontinued (Med list cleanup) docusate sodium 50 mg / sennosides, snf 8.6 mg oral tablet (17 sources) Start: 10-05-2021 End: 09-09-2023 Sennosides-Docusate Sodium (Senexon-S) 8.6-50 mg tablet Discontinued 1 NMA PO AT BEDTIME October 05, 2021 1:00am September 09, 2023 11:50am stool softener 0.4 ml enoxaparin sodium 100 mg/ml prefilled syringe (2 sources) Low Molecular Weight Heparin Start: 11-19-2024 End: 11-19-2024 inject 40 mg by subcutaneous injection every twenty-four hours 40 mg, SubCUTAneous, Every 24 hours scheduled (Daily), First dose on Sat11/19/24 at 0900, Indication of Use: Prophylaxis-DVT/PE, Indications: Prophylaxis of Venous Thromboembolism esomeprazole 40 mg delayed release oral capsule (20 sources) Proton Pump Inhibitor Start: 08-20-2023 End: 12-24-2024 take 1 capsule by mouth once daily Esomeprazole Magnesium 40 mg capsule,delayed release(DR/EC) Discontinued 40 mg PO DAILY August 20, 2023 12:06pm October 15, 2024 2:27pm Start: 05-01-2023 End: 08-20-2023 take 40 mg by mouth once daily Esomeprazole Magnesium Discontinued 40 MG PO DAILY May 01, 2023 12:00am August 20, 2023 12:07pm Start: 09-14-2022 End: 04-07-2023 take 1 capsule by mouth once daily Esomeprazole Magnesium 40 mg capsule,delayed release(DR/EC) Discontinued 40 mg PO DAILY September 14, 2022 1:00am April 07, 2023 11:00pm Esomeprazole Magnesium 40 mg capsule,delayed release(DR/EC) (3 sources) Start: 05-01-2023 End: 08-20-2023 take 1 capsule by mouth once daily Esomeprazole Magnesium 40 mg capsule,delayed release(DR/EC) Discontinued 40 mg PO DAILY May 01, 2023 12:00am August 20, 2023 12:07pm gabapentin 300 mg oral capsule (17 sources) Anti-epilept ic Agent Start: 10-05-2021 End: 10-06-2021 take 1 capsule by mouth three times daily as needed Gabapentin 300 mg capsule Discontinued 300 mg PO THREE TIMES A DAY as needed October 05, 2021 1:00am October 06, 2021 11:47am Honey (Honey 80 % Topical Gel) 80 % gel (3 sources) Start: 10-15-2024 End: 02-09-2025 Honey (Honey 80 % Topical Gel) 80 % gel Discontinued 1 NMA TOPICAL DAILY October 15, 2024 12:00am February 09, 2025 9:03am Start: 10-15-2024 Honey (Honey 8 0 % Topical Gel) 80 % gel Active 1 NMA TOPICAL DAILY October 15, 2024 12:00am hydroxychloroquine sulfate 200 mg oral tablet (17 sources) Antimalarial, Antirheumatic Agent Start: 10-05-2021 End: 10-06-2021 take 1 tablet by mouth three times daily Hydroxychloroquine 200 mg tablet Discontinued 200 mg PO THREE TIMES A DAY October 05, 2021 1:00am October 06, 2021 11:47am iopamidol (Isovue-370) 76 % injection 100 mL (2 sources) Start: 11-19-2024 End: 11-19-2024 take 100 mL intravenously once as needed 100 mL, IntraVENous, IMG once PRN, contrast, Starting on [facility] 11/19/24 at 1356, For 1 dose 24 hr isosorbide mononitrate 60 mg extended release oral tablet (20 sources) Nitrate Vasodilator Start: 11-29-2023 End: 10-15-2024 take 1 tablet by mouth twice daily, then take 2 tablets by mouth every twenty-four hours Isosorbide Mononitrate 60 mg tablet extended release 24 hr Discontinued 30 mg PO TWICE A DAY November 29, 2023 11:30am October 15, 2024 2:27pm Start: 11-29-2023 End: 11-29-2023 take 1 tablet by mouth once daily, then take 2 tablets by mouth every twenty-four hours Isosorbide Mononitrate 60 mg tablet extended release 24 hr Discontinued 30 mg PO DAILY November 29, 2023 12:00am November 29, 2023 11:32am Start: 08-13-2023 isosorbide mon onitrate ER 60 mg tablet,extended release 24 hr - Active Start: 08-13-2023 End: 08-16-2023 take 1 tablet by mouth once daily, then take 1 tablet by mouth every twenty-four hours Isosorbide Mononitrate 60 mg tablet extended release 24 hr Discontinued 60 mg PO DAILY August 13, 2023 1:00am August 16, 2023 4:52pm This is a dose increase Start: 08-12-2023 isosorbide mon onitrate ER 30 mg tablet,extended release 24 hr - Active Start: 08-12-2023 End: 12-24-2024 take 1 tablet by mouth once daily, then take 1 tablet by mouth every twenty-four hours Isosorbide Mononitrate 30 mg tablet extended release 24 hr Discontinued 30 mg PO DAILY 30 30 0 August 12, 2023 1:00am August 13, 2023 12:09pm labetalol hydrochloride 5 mg/ml injectable solution (2 sources) beta-Adrenergic Margaret Start: 11-18-2024 End: 11-19-2024 10 mg, IntraVENous, Every 10 min PRN, high blood pressure, Starting on Sat11/18/24 at 1734, Administer 10 mg IV every 10 minutes if SBP is 220 mmHg or greater OR DBP is 120 mmHg or greater. Notify provider if SBP is 220 mmHg or greater OR DBP is 120 mmHg or greater after 3 consecutive doses. losartan potassium 50 mg oral tablet (17 sources) Angiotensin 2 Receptor Margaret Start: 10-05-2021 End: 10-06-2021 take 1 tablet by mouth once daily Losartan 50 mg tablet Discontinued 50 mg PO DAILY October 05, 2021 1:00am October 06, 2021 11:48am mupirocin 0.02 mg/mg topical ointment (16 sources) RNA Synthetase Inhibitor Antibacterial Start: 10-15-2024 End: 02-09-2025 Mupirocin 2 % ointment Discontinued 1 NMA TOPICAL TWICE A DAY October 15, 2024 12:00am February 09, 2025 9:04am Start: 01-30-2019 mupirocin (GIORGI TROBAN) 2 % ointment Apply topically 3 times daily. 22 g 0 01/30/2019 Active ondansetron ODT (Zofran-ODT) disintegrating tablet 4 mg (2 sources) Start: 11-18-2024 End: 11-19-2024 take 1 tablet by mouth every eight hours as needed for nausea and vomiting ondansetron ODT (Zofran-ODT) disintegrating tablet 4 mg pantoprazole 40 mg delayed release oral tablet (20 sources) Proton Pump Inhibitor Start: 11-19-2024 End: 11-19-2024 take 40 mg by mouth once daily before breakfast 40 mg, Oral, Daily before breakfast, First dose on Sat11/19/24 at 0600, Substituted for esomeprazole (Nexium). Do not crush, chew, or split. Start: 10-05-2021 End: 09-14-2022 take 1 tablet by mouth once daily Pantoprazole 40 mg tablet,delayed release (DR/EC) Discontinued 40 mg PO DAILY 90 3 September 13, 2022 12:44pm September 14, 2022 3:45pm stomach take 40 mg by mouth once daily P ANTOPRAZOLE SODIUM PO Take 40 mg by mouth daily. 0 Active take 1 tablet by cruz th once daily pantoprazole (PROTONIX) 40 MG tablet Take 40 mg by mouth daily. 0 Active Pnv,Calcium 05-Ulku-Kbdzd Ac id ( Vitamin Plus Low Iron) 27 mg iron- 1 mg tablet (11 sources) Start: 05-05-2022 End: 04-07-2023 Pnv,Calcium 47-Paai-Zddvo Ac id ( Vitamin Plus Low Iron) 27 mg iron- 1 mg tablet Discontinued 1 {tbl} PO DAILY May 05, 2022 12:00am April 07, 2023 11:01pm vitamin Start: 05-05-2022 End: 04-07-2023 Pnv,Calcium 82-Kvxg-Bstky Ac id ( Vitamin Plus Low Iron) 27 mg iron- 1 mg tablet Discontinued 1 {tbl} PO DAILY May 05, 2022 12:00am April 07, 2023 11:01pm Start: 05-05-2022 End: 04-07-2023 take 1 tablet by mouth once daily Pnv,Calcium 21-Zlwf-Zvdsj Acid ( Vitamin Plus Low Iron) 27 mg iron- 1 mg tablet Discontinued 1 TABLET PO DAILY May 04, 2022 11:00pm April 07, 2023 10:01pm Start: 05-05-2022 End: 04-07-2023 take 1 tablet by mouth once daily Pnv,Calcium 05-Vnyt-Tgvpp Acid ( Vitamin Plus Low Iron) 27 mg iron- 1 mg tablet Discontinued 1 TABLET PO DAILY May 05, 2022 12:00am April 07, 2023 11:01pm Start: 05-05-2022 take 1 tablet by cruz th once daily Pnv,Calcium 57-Goqy-Zeloe Acid ( Vitamin Plus Low Iron) 27 mg iron- 1 mg tablet Active 1 TABLET PO DAILY May 04, 2022 11:00pm Start: 05-05-2022 take 1 tablet by cruz th once daily Pnv,Calcium 77-Ysnm-Knckv Acid ( Vitamin Plus Low Iron) 27 mg iron- 1 mg tablet Active 1 TABLET PO DAILY May 05, 2022 12:00am polyethylene glycol 3350 76061 mg powder for oral solution (2 sources) Osmotic Laxative Start: 11-18-2024 End: 11-19-2024 take 17 g by mouth every twenty-four hours as needed for constipation 17 g, Oral, Daily PRN, constipation, Starting on Sat11/18/24 at 1734, 1st line for treatment of constipation - give scheduled if no bowel movement in past 24 hours. sertraline 50 mg oral tablet (5 sources) Serotonin Reuptake Inhibitor Start: 10-15-2024 End: 02-09-2025 take 1 tablet by mouth once daily Sertraline 50 mg tablet Discontinued 50 mg PO DAILY October 15, 2024 12:00am February 09, 2025 9:04am depressive disorder Start: 05-06-2024 sertraline 50 mg tablet - Active sildenafil 20 mg oral tablet (17 sources) Phosphodiesterase 5 Inhibitor Start: 10-05-2021 End: 10-06-2021 take 1 tablet by mouth every four to six hours Sildenafil (Pulm.Hypertension) 20 mg tablet Discontinued 20 mg PO DAILY October 05, 2021 1:00am October 06, 2021 11:48am administer doses at least 4-6 hours apart 1000 ml sodium chloride 9 mg/ml injection (2 sources) Start: 11-18-2024 End: 11-19-2024 take 50 mL intravenously every hour 50 mL/hr, IntraVENous, Continuous, Starting on Sat11/18/24 at 1740 spironolactone 25 mg oral tablet (20 sources) Aldosterone Antagonist Start: 05-01-2023 End: 09-09-2023 take 1 tablet by mouth once daily Spironolactone 25 mg tablet Discontinued 25 mg PO DAILY May 01, 2023 10:15am September 09, 2023 11:50am Start: 11-23-2021 End: 05-01-2023 Spironolactone 25 mg tablet Discontinued 12.5 mg PO DAILY November 23, 2021 12:00am May 01, 2023 10:17am Start: 11-23-2021 End: 05-01-2023 take 12.5 mg by mouth once daily Spironolactone Discontinued 12.5 MG PO DAILY November 23, 2021 12:00am May 01, 2023 10:17am Start: 08-30-2021 End: 11-23-2021 take 1 tablet by mouth once daily Spironolactone 25 mg tablet Discontinued 25 mg PO DAILY October 06, 2021 1:00am November 23, 2021 2:35pm terbinafine 250 mg oral tablet (17 sources) Allylamine Antifungal Start: 10-05-2021 End: 10-06-2021 take 1 tablet by mouth once daily Terbinafine Hcl 250 mg tablet Discontinued 250 mg PO DAILY October 05, 2021 1:00am October 06, 2021 11:48am levothyroxine sodium 0.025 mg oral tablet (20 sources) l-Thyroxine Start: 01-14-2024 Synthroid 25 m cg tablet - Active Start: 10-05-2021 take 25 ug by mouth once daily Levothyroxine Active 25 MCG PO DAILY October 05, 2021 8:32pm Start: 04-13-2019 End: 11-19-2024 take 1 tablet by mouth once daily Levothyroxine (Synthroid) 25 mcg tablet Active 25 ug PO DAILY November 22, 2021 12:00am THYROID ticagrelor 90 mg oral tablet (17 sources) Start: 10-31-2021 End: 05-28-2022 take 1 tablet by mouth twice daily Ticagrelor (Brilinta) 90 mg Tablet Discontinued 90 mg PO TWICE A DAY 180 3 October 31, 2021 12:00am May 28, 2022 9:51am Vitamin B Complex (14 sources) Start: 10-05-2021 End: 10-06-2021 take 1 tablet by mouth once daily Vitamin B Complex Discontinued 1 TABLET PO DAILY October 05, 2021 8:32pm October 06, 2021 11:48am Start: 10-05-2021 End: 10-06-2021 take 1 tablet by mouth once daily Vitamin B Complex Discontinued 1 TABLET PO DAILY October 05, 2021 12:00am October 06, 2021 10:48am Start: 10-05-2021 End: 10-06-2021 take 1 tablet by mouth once daily Vitamin B Complex Discontinued 1 TABLET PO DAILY October 05, 2021 1:00am October 06, 2021 11:48am Vitamin B Complex tablet (3 sources) Start: 10-05-2021 End: 10-06-2021 Vitamin B Complex tablet Discontinued 1 {tbl} PO DAILY October 05, 2021 1:00am October 06, 2021 11:48am vitamin b12 1 mg/ml injectable solution (11 sources) Vitamin B12 Start: 05-05-2022 End: 04-08-2023 Cyanocobalamin (Vitamin B-12) 1,000 mcg/mL solution Discontinued 1000 ug SC EVERY WEEK May 05, 2022 12:00am April 08, 2023 5:45pm Start: 05-05-2022 End: 04-08-2023 Cyanocobalamin (Vitamin B-12 ) Discontinued 1000 MCG SC EVERY WEEK May 05, 2022 12:00am April 08, 2023 5:45pm Problems Active Problems Problem Classification Problem Date Documented Da te Episodic/Chronic Acquired foot deformities (4 sources) Right foot drop; 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: [Foot drop, right foot] Onset: 5 11-19-2024 Episodic Cardiac dysrhythmias (19 sources) Palpitations; 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: [Intermittent palpitations] Onset: 8 09-05-2022 Episodic Coronary atherosclerosis and other heart disease (20 sources) Atypical angina; 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] Onset: 2 Chronic Diverticulosis and diverticulitis (7 sources) 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; 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: [Diverticulosis of large intestine without perforation or abscess without bleeding] Onset: 6 10-31-2015 Chronic Diverticulosis and diverticulitis (6 sources) 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; 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: [Diverticulosis of large intestine without hemorrhage] Onset: 6 10-31-2015 E Codes: Fall (3 sources) Falling injury; 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: [Unspecified fall, initial encounter] 10-15-2024 Episodic Esophageal disorders (13 sources) Gastroesophageal reflux disease; 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: [Gastro-esophageal reflux disease without esophagitis] 01-19-2018 Chronic Essential hypertension (20 sources) Essential (primary) hypertension; 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: [Essential hypertension] Onset: 6 01-19-2018 Chronic Gastrointestinal hemorrhage (20 sources) Gastrointestinal hemorrhage; 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: [Hemorrhage of anus and rectum] Onset: 6 10-31-2015 Episodic Heart valve disorders (1 source) Tricuspid valve regurgitation; 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 Inflammation; infection of eye (except that caused by tuberculosis or sexually transmitteddisease) (6 sources) Acute conjunctivitis of bilateral eyes; 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: [Conjunctivitis, acute, bilateral] Onset: 3 Malaise and fatigue (20 sources) Asthenia; 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: [Weakness] Episodic Nonspecific chest pain (20 sources) Chest pain; 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: [Chest pain, unspecified] Onset: 1 Episodic Open wounds of head; neck; and trunk (3 sources) Laceration of forehead; 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: [Laceration without foreign body of other part of head, initial encounter] 10-15-2024 Episodic Other aftercare (11 sources) Long-term current use of anticoagulant; 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: [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] 09-05-2022 Episodic Other aftercare (3 sources) [facility] (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; 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: [Long-term (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] Episodic Other circulatory disease (9 sources) Abnormal peripheral pulse; 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: [Other specified symptoms and signs involving the circulatory and respiratory systems] 09-05-2022 Episodic Other circulatory disease (1 source) Other specified symptoms and signs involving the circulatory and respiratory systems; 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: [Other symptoms involving cardiovascular system] Episodic Other connective tissue disease (1 source) Hand pain; 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: [Pain in right hand] Episodic Other connective tissue disease (17 sources) Retained foreign body; 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: [Residual foreign body in soft tissue] 10-05-2021 Episodic Comment on above: chest Other connective tissue disease (4 sources) Residual foreign body in soft tissue; 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: [Residual foreign body in soft tissue] Episodic Other connective tissue disease (4 sources) Pain in left hand Episodic Other connective tissue disease (1 source) Other symptoms and signs involving the musculoskeletal system; 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: [Other symptoms and signs involving the musculoskeletal system] Onset: 5 Episodic Other gastrointestinal disorders (11 sources) History of gastrointestinal bleed; 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: [Personal history of other diseases of the digestive system] 05-16-2022 Episodic Other gastrointestinal disorders (3 sources) Personal history of other diseases of the digestive system; 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: [Personal history of other diseases of digestive system] Episodic Other liver diseases (11 sources) Steatosis of liver; 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: [Fatty (change of) liver, not elsewhere classified] 09-05-2022 Chronic Other lower respiratory disease (2 sources) Dyspnea; 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: [Shortness of breath] Episodic Other lower respiratory disease (4 sources) Dyspnea on exertion; 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: [Other forms of dyspnea] 11-29-2023 Episodic Other lower respiratory disease (1 source) Other forms of dyspnea; 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: [Other respiratory abnormalities] 11-29-2023 Episodic Other nervous system disorders (4 sources) Carpal tunnel syndrome, left upper limb; 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: [Left carpal tunnel syndrome] Chronic Other nervous system disorders (1 source) Neuropathy; 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: [Polyneuropathy, unspecified] 02-09-2025 Chronic Other nervous system disorders (2 sources) Carpal tunnel syndrome of left wrist; 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: [Carpal tunnel syndrome, left upper limb] 02-09-2025 Chronic Other nervous system disorders (2 sources) Right leg peripheral neuropathy; 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: [Unspecified mononeuropathy of right lower limb] 02-09-2025 Chronic Other nervous system disorders (2 sources) Polyneuropathy; 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: [Polyneuropathy, unspecified] 02-09-2025 Chronic Other nervous system disorders (2 sources) Polyneuropathy, unspecified; 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: [Polyneuropathy, unspecified] Onset: 5 Chronic Other nervous system disorders (5 sources) Paresthesia of skin; 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: [Paresthesia of skin] Onset: 5 Episodic Other nervous system disorders (1 source) Anesthesia of skin; 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: [Anesthesia of skin] Onset: 5 Episodic Peripheral and visceral atherosclerosis (3 sources) Peripheral vascular disease, unspecified; 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: [PERIPHERAL VASCULAR DISEASE UNS] Onset: 4 Chronic Residual codes; unclassified (17 sources) Edema; 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: [Edema, unspecified] 09-05-2022 Episodic Residual codes; unclassified (1 source) Acquired absence of other specified parts of digestive tract; 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: [Acquired absence of other specified parts of digestive tract] Onset: 5 Episodic Residual codes; unclassified (1 source) Other specified postprocedural states; 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: [Other specified postprocedural states] Onset: 5 Episodic Skin and subcutaneous tissue infections (3 sources) Cellulitis of left lower limb; 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: [Cellulitis of left lower limb] Onset: 5 Episodic Syncope (10 sources) Syncope; 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: [Syncope and collapse] Onset: 5 11-18-2024 Episodic Thyroid disorders (20 sources) Subclinical hypothyroidism; 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: [Hypothyroidism] Onset: 1 Resolved: 3 08-18-2015 Chronic Unclassified (2 sources) Edema, unspecified; 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: [Edema, unspecified] Onset: 8 Episodic Unclassified (2 sources) 1 Year Follow-up; 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: [1 Year Follow-up] Onset: 5 Past or Other Problems Problem Classification Problem Date Documented Date Episodic/Chronic Abdominal pain (20 sources) Lower abdominal pain; 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: [Abdominal pain] Onset: 01-19-2018 01-21-2018 Episodic Acute bronchitis (13 sources) Acute bronchitis; 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: [Acute bronchitis, unspecified] Onset: 08-16-2012 Episodic Conditions associated with dizziness or vertigo (20 sources) Vertigo; 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: [Lightheadedness] Onset: 08-09-2015 Resolved: 08-09-2015 08-09-2015 Episodic Coronary atherosclerosis and other heart disease (18 sources) Presence of coronary angioplasty implant and graft; 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: [Percutaneous transluminal coronary angioplasty status] Onset: 10-30-2021 Episodic Fluid and electrolyte disorders (20 sources) Hypokalemia; 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: [Lactic acidosis] Onset: 08-16-2012 01-21-2018 Episodic Headache; including migraine (20 sources) Frontal headache ; 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: [Headache] Onset: 08-09-2015 08-10-2015 Episodic Inflammation; infection of eye (except that caused by tuberculosis or sexually transmitteddisease) (7 sources) Acute conjunctivitis of bilateral eyes; 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: [Unspecified acute conjunctivitis, bilateral] Onset: 08-16-2012 Episodic Intracranial injury (4 sources) Concussion with less than 1 hour loss of consciousness; 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: [Concussion with loss of consciousness of 30 minutes or less, initial encounter] Onset: 10-23-2024 10-15-2024 Episodic Noninfectious gastroenteritis (13 sources) Gastroenteritis; 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: [Noninfective gastroenteritis and colitis, unspecified] Onset: 03-18-2013 03-18-2013 Episodic Other connective tissue disease (3 sources) Other specified soft tissue disorders; 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: [OTHER SPEC SOFT TISSUE DISORDERS] Onset: 03-31-2024 Episodic Other nervous system disorders (4 sources) Unsteady gait; 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: [Unsteady gait] Onset: 08-10-2015 08-10-2015 Episodic Other nervous system disorders (9 sources) Abnormal gait; 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: [Unsteadiness on feet] Onset: 08-10-2015 08-10-2015 Episodic Residual codes; unclassified (4 sources) Edema of lower extremity; 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: [Edema of both legs] Onset: 01-22-2013 01-22-2013 Episodic Residual codes; unclassified (9 sources) Localized edema; 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: [Bilateral lower limb edema] Onset: 01-22-2013 01-22-2013 Episodic Unclassified (2 sources) Left Hand (chief complaint) Onset: 05-11-2024 Urinary tract infections (20 sources) Acute cystitis; 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: [Urinary tract infectious disease] Onset: 03-17-2011 Resolved: 08-16-2012 01-21-2018 Episodic Results Test Name Value Interpretation Reference Range Facility NCS and/or EMG Patienton NCS and/or EMG Patient [facility] Pulmonary Services/Neurology [address] [place] [address] MR#: [id number] Acct: [id number] Name: BRANDIE KISER Rep #: [id number] : 1935 89 From: Parvez Macario MD Referring Dr: Rudolph Smith MD Status: REG CL I Location: [facility] Date: 04/14/25 Sex: F C NCS and/or EMG Patient Report Ordering Doctor: Rudolph Smith DATE OF SERVICE: 04/14/25 Brandie presents with complaints of numbness and tingling in both lower legs. Electrodiagnostic findings: Peroneal motor nerve demonstrates prolonged distal latency bilaterally with reduced amplitudes. There is reduced conduction velocity on the right side, without evidence of conduction block at the fibular head. Tibial motor latency is prolonged bilaterally with reduced amplitude on the left side. Borderline reduced tibial conduction velocity bilaterally. Prolonged right sural latency is noted. Prolonged right superficial peroneal latency. Prolonged tibial and peroneal F???waves. H???reflexes prolonged bilaterally. Needle EMG testing was performed in the lower limbs. Neurogenic motor units noted bilaterally in the tibialis anterior and gastrocnemius. Electrodiagnostic impression: This is an abnormal study. 1. 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 2. No electrodiagnostic evidence is noted for lumbosacral radiculopathy. Multi Select Codes Neurology Neurology Interp Codes: 84544-02 Musc test done w/n test comp (interp) (2) and 44954-21 Nrv cndj test 9-10 studies (interp) 04/14/25 1335 Date Parvez Macario MD CC: MILTON Mercado; Dr. Parvez Macario MD; Dr. Rudolph Smith MD Date Dictated: 04/14/251331 Date Transcribed: 04/14/251331 Feed Weigher: AA Signed Normal [facility] Lambda Light Chainson 03-07-2025 FR KAPPA LT CHN 15.5 mg/L Normal 3.3-19.4 [facility] Comment on above: Order Comment: Test( s) 263380-Qxk. B1, Whole Blood was developed and its performance characteristics determined by [facility]. It has not been cleared or approved by the Food and Drug Administration. Performed By: #### L 500.4050, L3130.0010, L100.0500, L503.0106, L3300.0960, L3300.8000, L501.9520, L506.0400 #### [facility] [address] [place], [address] FR LAMBDA LT CH 18.1 mg/L Normal 5.7-26.3 [facility] Comment on above: Order Comment: Test( s) [id number]-Chg. B1, Whole Blood was developed and its performance characteristics determined by [facility]. It has not been cleared or approved by the Food and Drug Administration. Performed By: #### L 500.4050, L3130.0010, L100.0500, L503.0106, L3300.0960, L3300.8000, L501.9520, L506.0400 #### [facility] [address] [place], [place], [id number] KAPPA/LAMBDA % 0.86 Normal 0.26-1.65 [facility] Comment on above: Order Comment: Test( s) [id number]-Fls. B1, Whole Blood was developed and its performance characteristics determined by [facility]. It has not been cleared or approved by the Food and Drug Administration. Performed By: #### L 500.4050, L3130.0010, L100.0500, L503.0106, L3300.0960, L3300.8000, L501.9520, L506.0400 #### [facility] [address] [place], [place], [id number] Vitamin B1, Thiamineon 03-07 VIT B1 THIAMINE 131.8 nmol/L Normal 66.5-200.0 [facility] Comment on above: Order Comment: Test( s) 536229-Fnp. B1, Whole Bloodwas developed and its performance characteristicsdetermined by [facility]. It has not been cleared or approvedby the Food and Drug Administration. Result Comment: Perf ormed at: [address] [id number] Recycling Worker: Brenton Boyle PhD, Phone: [phone] Performed at: [address] [id number] Recycling Worker: Yesi Lieberman MD, Phone: [phone] Performed By: #### L 500.4050, L3130.0010, L100.0500, L503.0106, L3300.0960, L3300.8000, L501.9520, L506.0400 ####[facility] [address] [place], [place], [address] Vitamin D 1,25-Dihydroxyon 0 03-05-2025 VIT D 1,25 DIHY 60.7 pg/mL Normal 24.8-81.5 [facility] Comment on above: Result Comment: Perf ormed at: [facility] [address] [id number] Recycling Worker: Yesi Lieberman MD, Phone: [phone] Performed By: #### L 500.4050, L3130.0010, L100.0500, L503.0106, L3300.0960, L3300.8000, L501.9520, L506.0400 #### [facility] [address] [place], [place], [id number] (422) Anion gap in Serum or Plasma Ordered By: Rudolph Smith on 03-02-2025 Anion gap [Moles/Vol] 10 mmol/L 5-15 [facility] BUN/creatinine ratioOrdered By: Rudolph Smith on 03-02-2025 Urea nitrogen/Creatinine [Mass ratio] 8.4 mg/mg Low 10-20 [facility] Bilirubin, totalOrdered By: Rudolph Smith on 03-02-2025 Bilirubin [Mass/Vol] 0.75 mg/dL 0.00-1.30 [facility] CBC-Complete Blood Cnt No Di ffon 03-02-2025 Erythrocyte distribution width (RBC) [Ratio] 13.7 % Normal 11.6-14.6 [facility] Comment on above: Performed By: #### L 500.4050, L3130.0010, L100.0500, L503.0106, L3300.0960, L3300.8000, L501.9520, L506.0400 #### [facility] [address] [place], [address] Hematocrit (Bld) [Volume fraction] 46.2 % Normal 37-47 [facility] Comment on above: Performed By: #### L 500.4050, L3130.0010, L100.0500, L503.0106, L3300.0960, L3300.8000, L501.9520, L506.0400 #### [facility] [address] [place], [address] Hemoglobin (Bld) [Mass/Vol] 14.5 g/dL Normal 12.0-15.0 [facility] Comment on above: Performed By: #### L 500.4050, L3130.0010, L100.0500, L503.0106, L3300.0960, L3300.8000, L501.9520, L506.0400 #### [facility] [address] [place], [address] MCH (RBC) [Entitic mass] 27.7 pg Normal 27.0-32.0 [facility] Comment on above: Performed By: #### L 500.4050, L3130.0010, L100.0500, L503.0106, L3300.0960, L3300.8000, L501.9520, L506.0400 #### [facility] [address] [place], [address] MCHC (RBC) [Mass/Vol] 31.4 g/dL Low 32-36 [facility] Comment on above: Performed By: #### L 500.4050, L3130.0010, L100.0500, L503.0106, L3300.0960, L3300.8000, L501.9520, L506.0400 #### [facility] [address] [place], [address] MCV (RBC) [Entitic vol] 88.2 fL Normal 81-99 [facility] Comment on above: Performed By: #### L 500.4050, L3130.0010, L100.0500, L503.0106, L3300.0960, L3300.8000, L501.9520, L506.0400 #### [facility] [address] [place], [address] Platelet mean volume (Bld) [Entitic vol] 10.5 fL Normal 6.2-12.0 [facility] Comment on above: Performed By: #### L 500.4050, L3130.0010, L100.0500, L503.0106, L3300.0960, L3300.8000, L501.9520, L506.0400 #### [facility] [address] [place], [address] Platelets (Bld) [#/Vol] 200 10*3/uL Normal 150-450 [facility] Comment on above: Performed By: #### L 500.4050, L3130.0010, L100.0500, L503.0106, L3300.0960, L3300.8000, L501.9520, L506.0400 #### [facility] [address] [place], [address] RBC (Bld) [#/Vol] 5.24 10*6/uL Normal 4.2-5.4 [facility] Comment on above: Performed By: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 Other: Calcified atherosclerotic plaque in the carotid and vertebral arteries. ASPECTS: 10 CT PERFUSION BRAIN IMAGING: CT perfusion: No global or regional perfusion abnormalities are noted on the Tmax, MTT, CBV, or CBF maps. CT perfusion quantitative findings: Infarct Core (CBF<30%): 0 ml Tissue at Risk (Tmax >6 sec): 0 ml Penumbra Volume: 0 ml CTA NECK: Extracranial Circulation: Aortic Arch: No significant stenosis in the proximal brachiocephalic vessels. Carotid Arteries Right Common Carotid: No significant stenosis. Right Internal Carotid: No significant stenosis, dissection, or pseudoaneurysm. Left Common Carotid: No significant stenosis. Left Internal Carotid: No significant stenosis, dissection, or pseudoaneurysm. Vertebral Arteries: Patent with no stenosis or dissection. CTA HEAD: Anterior Circulation: The internal carotid arteries are patent with calcified atherosclerotic plaque bilaterally. ACAs and MCAs are patent. No vessel cutoff, aneurysm or focal hemodynamically significant stenosis. Both P1 segments are hypoplastic or absent and there are robust bilateral posterior communicating arteries. Vertebrobasilar Circulation: Intracranial vertebral arteries, PICA/AICA branches, basilar artery, SCAs and robotics specialist are patent. No vessel cutoff, aneurysm or focal hemodynamically significant stenosis. OTHER: No evidence of a soft tissue mass or lymphadenopathy in the neck or superior mediastinum. The lung apices are clear. IMPRESSION: Normal CT of the head, CTA of the head/neck, and CT perfusion studies. Report Dictated on Electronically Signed By: Michele Downing MD Electronically Signed Date/Time: 11/19/2024 2:15 PM EDT NOT AN ACUTE STROKE TEAM [facility] CT HEAD WO IV CONTRASTon CT HEAD WO IV CONTRAST Patient Name: BRANDIE RAMESH : 1935 Exam Date/Time: 11/19/2024 13:41 Procedure: CT HEAD WO IV CONTRAST Ordering Provider: HUA JOSHUA Reason For Exam: Dizziness, persistent/recurrent, cardiac or vascular cause suspected EXAMINATION: CT PERFUSION, CT HEAD WO IV CONTRAST, CT HEAD NECK ANGIO W AND WO IV CONTRAST CLINICAL HISTORY: dizziness, unsteady gait, concern for stroke COMPARISON: 11/18/2024 TECHNIQUE: CT angiogram of the head and neck were obtained with intravenous contrast. Thin isotropic axial imaging was obtained through the brain and neck from the vertex to the thoracic inlet during rapid IV contrast administration for evaluation of the vessels. Multiplanar and 3D maximum intensity projection reformulations were created from the raw CT data which were interpreted in conjunction with the axial images to render the findings listed below. Dynamic 4D CT Perfusion study of the whole brain was performed following administration of intravenous contrast. RAPID software color blood flow maps of the brain with quantitative assessment of Tmax, mean transit time, cerebral blood flow and cerebral blood volume was provided. Dose reduction was employed with automated exposure control. CT HEAD: Acute findings: No mass or acute hemorrhage. No evidence of acute infarct. Chronic findings: Mild generalized brain parenchymal volume loss with normal caliber ventricles. 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 Other: Calcified atherosclerotic plaque in the carotid and vertebral arteries. ASPECTS: 10 CT PERFUSION BRAIN IMAGING: CT perfusion: No global or regional perfusion abnormalities are noted on the Tmax, MTT, CBV, or CBF maps. CT perfusion quantitative findings: Infarct Core (CBF<30%): 0 ml Tissue at Risk (Tmax >6 sec): 0 ml Penumbra Volume: 0 ml CTA NECK: Extracranial Circulation: Aortic Arch: No significant stenosis in the proximal brachiocephalic vessels. Carotid Arteries Right Common Carotid: No significant stenosis. Right Internal Carotid: No significant stenosis, dissection, or pseudoaneurysm. Left Common Carotid: No significant stenosis. Left Internal Carotid: No significant stenosis, dissection, or pseudoaneurysm. Vertebral Arteries: Patent with no stenosis or dissection. CTA HEAD: Anterior Circulation: The internal carotid arteries are patent with calcified atherosclerotic plaque bilaterally. ACAs and MCAs are patent. No vessel cutoff, aneurysm or focal hemodynamically significant stenosis. Both P1 segments are hypoplastic or absent and there are robust bilateral posterior communicating arteries. Vertebrobasilar Circulation: Intracranial vertebral arteries, PICA/AICA branches, basilar artery, SCAs and robotics specialist are patent. No vessel cutoff, aneurysm or focal hemodynamically significant stenosis. OTHER: No evidence of a soft tissue mass or lymphadenopathy in the neck or superior mediastinum. The lung apices are clear. IMPRESSION: Normal CT of the head, CTA of the head/neck, and CT perfusion studies. Report Dictated on Electronically Signed By: Michele Downing MD Electronically Signed Date/Time: 11/19/2024 2:15 PM EDT NOT AN ACUTE STROKE TEAM Normal [facility] CT Head WO contraston 2024 [facility] 1935 [id number] Exam Date/Time: 11/19/2024 13:41 Procedure: CT HEAD WO IV CONTRAST Ordering Provider: HUA JOSHUA Reason For Exam: Dizziness, persistent/recurrent, cardiac or vascular cause suspected EXAMINATION: CT PERFUSION, CT HEAD WO IV CONTRAST, CT HEAD NECK ANGIO W AND WO IV CONTRAST CLINICAL HISTORY: dizziness, unsteady gait, concern for stroke COMPARISON: 11/18/2024 TECHNIQUE: CT angiogram of the head and neck were obtained with intravenous contrast. Thin isotropic axial imaging was obtained through the brain and neck from the vertex to the thoracic inlet during rapid IV contrast administration for evaluation of the vessels. Multiplanar and 3D maximum intensity projection reformulations were created from the raw CT data which were interpreted in conjunction with the axial images to render the findings listed below. Dynamic 4D CT Perfusion study of the whole brain was performed following administration of intravenous contrast. RAPID software color blood flow maps of the brain with quantitative assessment of Tmax, mean transit time, cerebral blood flow and cerebral blood volume was provided. Dose reduction was employed with automated exposure control. CT HEAD: Acute findings: No mass or acute hemorrhage. No evidence of acute infarct. Chronic findings: Mild generalized brain parenchymal volume loss with normal caliber ventricles. 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 Other: Calcified atherosclerotic plaque in the carotid and vertebral arteries. ASPECTS: 10 CT PERFUSION BRAIN IMAGING: CT perfusion: No global or regional perfusion abnormalities are noted on the Tmax, MTT, CBV, or CBF maps. CT perfusion quantitative findings: Infarct Core (CBF<30%): 0 ml Tissue at Risk (Tmax >6 sec): 0 ml Penumbra Volume: 0 ml CTA NECK: Extracranial Circulation: Aortic Arch: No significant stenosis in the proximal brachiocephalic vessels. Carotid Arteries Right Common Carotid: No significant stenosis. Right Internal Carotid: No significant stenosis, dissection, or pseudoaneurysm. Left Common Carotid: No significant stenosis. Left Internal Carotid: No significant stenosis, dissection, or pseudoaneurysm. Vertebral Arteries: Patent with no stenosis or dissection. CTA HEAD: Anterior Circulation: The internal carotid arteries are patent with calcified atherosclerotic plaque bilaterally. ACAs and MCAs are patent. No vessel cutoff, aneurysm or focal hemodynamically significant stenosis. Both P1 segments are hypoplastic or absent and there are robust bilateral posterior communicating arteries. Vertebrobasilar Circulation: Intracranial vertebral arteries, PICA/AICA branches, basilar artery, SCAs and robotics specialist are patent. No vessel cutoff, aneurysm or focal hemodynamically significant stenosis. OTHER: No evidence of a soft tissue mass or lymphadenopathy in the neck or superior mediastinum. The lung apices are clear. [facility] Michele Downing M D - 11/19/2024 Patient Name: BRANDIE KISER : 1935 [facility]#: [id number] Exam Date/Time: 11/19/2024 13:41 Procedure: CT HEAD WO IV CONTRAST Ordering Provider: HUA JOSHUA Reason For Exam: Dizziness, persistent/recurrent, cardiac or vascular cause suspected EXAMINATION: CT PERFUSION, CT HEAD WO IV CONTRAST, CT HEAD NECK ANGIO W AND WO IV CONTRAST CLINICAL HISTORY: dizziness, unsteady gait, concern for stroke COMPARISON: 11/18/2024 TECHNIQUE: CT angiogram of the head and neck were obtained with intravenous contrast. Thin isotropic axial imaging was obtained through the brain and neck from the vertex to the thoracic inlet during rapid IV contrast administration for evaluation of the vessels. Multiplanar and 3D maximum intensity projection reformulations were created from the raw CT data which were interpreted in conjunction with the axial images to render the findings listed below. Dynamic 4D CT Perfusion study of the whole brain was performed following administration of intravenous contrast. RAPID software color blood flow maps of the brain with quantitative assessment of Tmax, mean transit time, cerebral blood flow and cerebral blood volume was provided. Dose reduction was employed with automated exposure control. CT HEAD: Acute findings: No mass or acute hemorrhage. No evidence of acute infarct. Chronic findings: Mild generalized brain parenchymal volume loss with normal caliber ventricles. 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 Other: Calcified atherosclerotic plaque in the carotid and vertebral arteries. ASPECTS: 10 CT PERFUSION BRAIN IMAGING: CT perfusion: No global or regional perfusion abnormalities are noted on the Tmax, MTT, CBV, or CBF maps. CT perfusion quantitative findings: Infarct Core (CBF<30%): 0 ml Tissue at Risk (Tmax >6 sec): 0 ml Penumbra Volume: 0 ml CTA NECK: Extracranial Circulation: Aortic Arch: No significant stenosis in the proximal brachiocephalic vessels. Carotid Arteries Right Common Carotid: No significant stenosis. Right Internal Carotid: No significant stenosis, dissection, or pseudoaneurysm. Left Common Carotid: No significant stenosis. Left Internal Carotid: No significant stenosis, dissection, or pseudoaneurysm. Vertebral Arteries: Patent with no stenosis or dissection. CTA HEAD: Anterior Circulation: The internal carotid arteries are patent with calcified atherosclerotic plaque bilaterally. ACAs and MCAs are patent. No vessel cutoff, aneurysm or focal hemodynamically significant stenosis. Both P1 segments are hypoplastic or absent and there are robust bilateral posterior communicating arteries. Vertebrobasilar Circulation: Intracranial vertebral arteries, PICA/AICA branches, basilar artery, SCAs and robotics specialist are patent. No vessel cutoff, aneurysm or focal hemodynamically significant stenosis. OTHER: No evidence of a soft tissue mass or lymphadenopathy in the neck or superior mediastinum. The lung apices are clear. IMPRESSION: Normal CT of the head, CTA of the head/neck, and CT perfusion studies. Report Dictated on Electronically Signed By: Michele Downing MD Electronically Signed Date/Time: 11/19/2024 2:15 PM EDT [facility] CT PERFUSIONon 11-19-2024 CT PERFUSION Patient Name: BRANDIE KISER : 1935 [facility]#: [id number] Exam Date/Time: 11/19/2024 13:41 Procedure: CT PERFUSION Ordering Provider: HUA JOSHUA Reason For Exam: dizziness, unsteady gait, concern for stroke EXAMINATION: CT PERFUSION, CT HEAD WO IV CONTRAST, CT HEAD NECK ANGIO W AND WO IV CONTRAST CLINICAL HISTORY: dizziness, unsteady gait, concern for stroke COMPARISON: 11/18/2024 TECHNIQUE: CT angiogram of the head and neck were obtained with intravenous contrast. Thin isotropic axial imaging was obtained through the brain and neck from the vertex to the thoracic inlet during rapid IV contrast administration for evaluation of the vessels. Multiplanar and 3D maximum intensity projection reformulations were created from the raw CT data which were interpreted in conjunction with the axial images to render the findings listed below. Dynamic 4D CT Perfusion study of the whole brain was performed following administration of intravenous contrast. RAPID software color blood flow maps of the brain with quantitative assessment of Tmax, mean transit time, cerebral blood flow and cerebral blood volume was provided. Dose reduction was employed with automated exposure control. CT HEAD: Acute findings: No mass or acute hemorrhage. No evidence of acute infarct. Chronic findings: Mild generalized brain parenchymal volume loss with normal caliber ventricles. 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 Other: Calcified atherosclerotic plaque in the carotid and vertebral arteries. ASPECTS: 10 CT PERFUSION BRAIN IMAGING: CT perfusion: No global or regional perfusion abnormalities are noted on the Tmax, MTT, CBV, or CBF maps. CT perfusion quantitative findings: Infarct Core (CBF<30%): 0 ml Tissue at Risk (Tmax >6 sec): 0 ml Penumbra Volume: 0 ml CTA NECK: Extracranial Circulation: Aortic Arch: No significant stenosis in the proximal brachiocephalic vessels. Carotid Arteries Right Common Carotid: No significant stenosis. Right Internal Carotid: No significant stenosis, dissection, or pseudoaneurysm. Left Common Carotid: No significant stenosis. Left Internal Carotid: No significant stenosis, dissection, or pseudoaneurysm. Vertebral Arteries: Patent with no stenosis or dissection. CTA HEAD: Anterior Circulation: The internal carotid arteries are patent with calcified atherosclerotic plaque bilaterally. ACAs and MCAs are patent. No vessel cutoff, aneurysm or focal hemodynamically significant stenosis. Both P1 segments are hypoplastic or absent and there are robust bilateral posterior communicating arteries. Vertebrobasilar Circulation: Intracranial vertebral arteries, PICA/AICA branches, basilar artery, SCAs and robotics specialist are patent. No vessel cutoff, aneurysm or focal hemodynamically significant stenosis. OTHER: No evidence of a soft tissue mass or lymphadenopathy in the neck or superior mediastinum. The lung apices are clear. IMPRESSION: Normal CT of the head, CTA of the head/neck, and CT perfusion studies. Report Dictated on Electronically Signed By: Michele Downing MD Electronically Signed Date/Time: 11/19/2024 2:15 PM EDT NOT AN ACUTE STROKE TEAM [facility] CTA Head vessels and Neck ve ssels WO and W contrast Analia 11-19-2024 Patient Name: BRANDIE KISER : 1935 [facility]#: [id number] Exam Date/Time: 11/19/2024 13:41 Procedure: CT HEAD NECK ANGIO W AND WO IV CONTRAST Ordering Provider: HUA JOSHUA Reason For Exam: Dizziness, persistent/recurrent, cardiac or vascular cause suspected EXAMINATION: CT PERFUSION, CT HEAD WO IV CONTRAST, CT HEAD NECK ANGIO W AND WO IV CONTRAST CLINICAL HISTORY: dizziness, unsteady gait, concern for stroke COMPARISON: 11/18/2024 TECHNIQUE: CT angiogram of the head and neck were obtained with intravenous contrast. Thin isotropic axial imaging was obtained through the brain and neck from the vertex to the thoracic inlet during rapid IV contrast administration for evaluation of the vessels. Multiplanar and 3D maximum intensity projection reformulations were created from the raw CT data which were interpreted in conjunction with the axial images to render the findings listed below. Dynamic 4D CT Perfusion study of the whole brain was performed following administration of intravenous contrast. RAPID software color blood flow maps of the brain with quantitative assessment of Tmax, mean transit time, cerebral blood flow and cerebral blood volume was provided. Dose reduction was employed with automated exposure control. CT HEAD: Acute findings: No mass or acute hemorrhage. No evidence of acute infarct. Chronic findings: Mild generalized brain parenchymal volume loss with normal caliber ventricles. 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 Other: Calcified atherosclerotic plaque in the carotid and vertebral arteries. ASPECTS: 10 CT PERFUSION BRAIN IMAGING: CT perfusion: No global or regional perfusion abnormalities are noted on the Tmax, MTT, CBV, or CBF maps. CT perfusion quantitative findings: Infarct Core (CBF<30%): 0 ml Tissue at Risk (Tmax >6 sec): 0 ml Penumbra Volume: 0 ml CTA NECK: Extracranial Circulation: Aortic Arch: No significant stenosis in the proximal brachiocephalic vessels. Carotid Arteries Right Common Carotid: No significant stenosis. Right Internal Carotid: No significant stenosis, dissection, or pseudoaneurysm. Left Common Carotid: No significant stenosis. Left Internal Carotid: No significant stenosis, dissection, or pseudoaneurysm. Vertebral Arteries: Patent with no stenosis or dissection. CTA HEAD: Anterior Circulation: The internal carotid arteries are patent with calcified atherosclerotic plaque bilaterally. ACAs and MCAs are patent. No vessel cutoff, aneurysm or focal hemodynamically significant stenosis. Both P1 segments are hypoplastic or absent and there are robust bilateral posterior communicating arteries. Vertebrobasilar Circulation: Intracranial vertebral arteries, PICA/AICA branches, basilar artery, SCAs and robotics specialist are patent. No vessel cutoff, aneurysm or focal hemodynamically significant stenosis. OTHER: No evidence of a soft tissue mass or lymphadenopathy in the neck or superior mediastinum. The lung apices are clear. [facility] Michele Downing M D - 11/19/2024 Patient Name: BRANDIE KISER : 1935 [facility]#: [id number] Exam Date/Time: 11/19/2024 13:41 Procedure: CT HEAD NECK ANGIO W AND WO IV CONTRAST Ordering Provider: HUA JOSHUA Reason For Exam: Dizziness, persistent/recurrent, cardiac or vascular cause suspected EXAMINATION: CT PERFUSION, CT HEAD WO IV CONTRAST, CT HEAD NECK ANGIO W AND WO IV CONTRAST CLINICAL HISTORY: dizziness, unsteady gait, concern for stroke COMPARISON: 11/18/2024 TECHNIQUE: CT angiogram of the head and neck were obtained with intravenous contrast. Thin isotropic axial imaging was obtained through the brain and neck from the vertex to the thoracic inlet during rapid IV contrast administration for evaluation of the vessels. Multiplanar and 3D maximum intensity projection reformulations were created from the raw CT data which were interpreted in conjunction with the axial images to render the findings listed below. Dynamic 4D CT Perfusion study of the whole brain was performed following administration of intravenous contrast. RAPID software color blood flow maps of the brain with quantitative assessment of Tmax, mean transit time, cerebral blood flow and cerebral blood volume was provided. Dose reduction was employed with automated exposure control. CT HEAD: Acute findings: No mass or acute hemorrhage. No evidence of acute infarct. Chronic findings: Mild generalized brain parenchymal volume loss with normal caliber ventricles. 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 Other: Calcified atherosclerotic plaque in the carotid and vertebral arteries. ASPECTS: 10 CT PERFUSION BRAIN IMAGING: CT perfusion: No global or regional perfusion abnormalities are noted on the Tmax, MTT, CBV, or CBF maps. CT perfusion quantitative findings: Infarct Core (CBF<30%): 0 ml Tissue at Risk (Tmax >6 sec): 0 ml Penumbra Volume: 0 ml CTA NECK: Extracranial Circulation: Aortic Arch: No significant stenosis in the proximal brachiocephalic vessels. Carotid Arteries Right Common Carotid: No significant stenosis. Right Internal Carotid: No significant stenosis, dissection, or pseudoaneurysm. Left Common Carotid: No significant stenosis. Left Internal Carotid: No significant stenosis, dissection, or pseudoaneurysm. Vertebral Arteries: Patent with no stenosis or dissection. CTA HEAD: Anterior Circulation: The internal carotid arteries are patent with calcified atherosclerotic plaque bilaterally. ACAs and MCAs are patent. No vessel cutoff, aneurysm or focal hemodynamically significant stenosis. Both P1 segments are hypoplastic or absent and there are robust bilateral posterior communicating arteries. Vertebrobasilar Circulation: Intracranial vertebral arteries, PICA/AICA branches, basilar artery, SCAs and robotics specialist are patent. No vessel cutoff, aneurysm or focal hemodynamically significant stenosis. OTHER: No evidence of a soft tissue mass or lymphadenopathy in the neck or superior mediastinum. The lung apices are clear. IMPRESSION: Normal CT of the head, CTA of the head/neck, and CT perfusion studies. Report Dictated on Electronically Signed By: Michele Downing MD Electronically Signed Date/Time: 11/19/2024 2:15 PM EDT [facility] Comprehensive metabolic 1998 panelon 11-19-2024 Albumin [Mass/Vol] 3.3 g/dL Low 3.4 - 4.8 g/dL [facility] ALP [Catalytic activity/Vol] 202 U/L High 40 - 150 U/L [facility] ALT [Catalytic activity/Vol] 20 U[facility]L [facility] U/L [facility] Anion gap [Moles/Vol] 9 mmol/L 3 - 13 mmol/L [facility] AST [Catalytic activity/Vol] 26 U/L [facility] - 34 U/L [facility] Bilirubin [Mass/Vol] 1.2 mg/dL High [facility] - 1.2 mg/dL [facility] Calcium [Mass/Vol] 8.2 mg/dL Low 8.8 - 10. 0 mg/dL [facility] Chloride [Moles/Vol] 110 mmol/L High 98 - 10 7 mmol/L [facility] CO2 [Moles/Vol] 23 mmol/L 23 - 31 mmol/L [facility] Creatinine [Mass/Vol] 0.6 mg/dL 0.57 - 1.11 mg/dL [facility] GFR/1.73 sq M.predicted (S/P/Bld) [Vol rate/Area] 87 mL/min - PINF [facility] Comment on above: Calculation based on the Chronic Kidney Disease Epidemiology Collaboration (CKD-EPI) equation refit without adjustment for race Glucose [Mass/Vol] 97 mg/dL 82 - 115 mg/dL [facility] Potassium [Moles/Vol] 3.7 mmol/L 3.5 - 5.1 mmol/L [facility] Comment on above: Plasma potassium don ues may be up to 0.5 mmol/L lower than serum values. Protein [Mass/Vol] 5.7 g/dL Low 6.4 - 8.3 g/dL [facility] Sodium [Moles/Vol] 142 mmol/L 136 - 145 mmol/L [facility] Urea nitrogen [Mass/Vol] 8 mg/dL Low 9 - 23 mg/dL [facility] Consulton 11-19-2024 Consult See consult note 10/28 4 at 8:[address] Morales as cardiology consult note Normal [facility] Consult [facility] Wound Care CONSULT Note Brandie Kiser AGE: 89 y.o. GENDER: female : 1935 Subjective: HISTORY of PRESENT ILLNESS HPI Brandie Kiser is a 89 y.o. female who presents for a wound consult. HPI: Brandie is a 89 y.o. female with past medical history of CAD, GERD, HLD, thyroid disease, HTN. Of note, patient is an inconsistent historian. Patient reports that she was in her normal state of health recently, woke up this morning and turned her head in the bed states that she passed out for 2 to 3 seconds. When she came to, she was experiencing dizziness, predominantly described as vertigo with a component of lightheadedness. She laid in bed for the rest the morning, when her alarm went off she sat the side of the bed and again had ongoing vertigo mainly. She attempted to ambulate to the bathroom, was walking like I was drunk. She continued to monitor her symptoms over the course the morning, and when the vertigo persisted with difficulty ambulating, she decided to come to the ED for further evaluation. Wound Care consulted for left leg venous ulcer. Patient is following at a dermatology office in [place]. Talked with patient in length about switching to santyl, patient refuses at this time. Patient states she does not want to change treatment at this time. PAST MEDICAL HISTORY Past Medical History: Diagnosis Date Coronary artery disease SOFYA 2021 GERD (gastroesophageal reflux disease) GI bleed Hyperlipidemia Thyroid disease PAST SURGICAL HISTORY Past Surgical History: Procedure Laterality Date APPENDECTOMY BACK SURGERY CHOLECYSTECTOMY TOTAL KNEE ARTHROPLASTY Left FAMILY HISTORY No family history on file. SOCIAL HISTORY Social History Tobacco Use Smoking status: Former Types: Cigarettes Smokeless tobacco: Never Substance Use Topics Alcohol use: Never Drug use: Never ALLERGIES Allergies Allergen Reactions Isosorbide Other Reaction(s): Dizzy, nausea,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 [place] [id number] Eosinophils/100 WBC (Bld) 3.5 % Normal 0.0 - 7.0 [facility] Comment on above: Performed By: #### 2 84982 #### [facility],[address] [place] [address] Erythrocyte distribution width (RBC) [Ratio] 13.9 % Normal 12.0 - 15.6 [facility] Comment on above: Performed By: #### 2 19107 #### [facility],[address] [place] [address]397 Hematocrit (Bld) [Volume fraction] 39.1 % Normal 34.0 - 46.0 [facility] Comment on above: Performed By: #### 2 69896 #### [facility],[address] [place] [address] 96310 Hemoglobin (Bld) [Mass/Vol] 13.1 g/dL Normal 12.0 - 16.0 [facility] Comment on above: Performed By: #### 2 24637 #### [facility],[address] [place] [address] 78277 Lymph # 1.14 x10EE3/UL Normal 0.80 - 2.80 [facility] Comment on above: Performed By: #### 2 53451 #### [facility],[address] [place], [place] [phone] Lymphocytes/100 WBC (Bld) 30.4 % Normal 20.0 - 45.0 [facility] Comment on above: Performed By: #### 2 31384 #### [facility],[address] [place] [address] 05473 MANUAL DIFF N/A Normal [facility] Comment on above: Performed By: #### 2 03255 #### [facility],[address] [place] [address] 53291 MCH (RBC) [Entitic mass] 29 pg Normal 27 - 33 [facility] Comment on above: Performed By: #### 2 77836 #### [facility],[address] [place] [address] 98503 MCHC 34 X10 3 Normal 32 - 36 [facility] Comment on above: Performed By: #### 2 02247 #### [facility],[address] [place] [address] 13411 MCV (RBC) [Entitic vol] 86 fL Normal 80 - 99 [facility] Comment on above: Performed By: #### 2 92554 #### [facility],[address] [place] [address] 03580 [place] # 0.49 x10EE3/UL Normal 0.20 - 1.00 [facility] Comment on above: Performed By: #### 2 63316 #### [facility],[address] [place] [address] 19513 MONOS % 13.0 % High 0.0 - 10.0 [facility] Comment on above: Performed By: #### 2 84896 #### [facility],[address] [place] [address] Morphology Michael (Bld) [Interp] N/A Normal [facility] Comment on above: Performed By: #### 2 34644 #### [facility],[address] [place] [address] Neut # 1.98 x10EE3/UL Normal 1.50 - 7.10 [facility] Comment on above: Performed By: #### 2 34534 #### [facility],[address] [place] [address] Neutrophils/100 WBC (Bld) 52.7 % Normal 46.0 - 76.0 [facility] Comment on above: Performed By: #### 2 92379 #### [facility],[address] [place] [address] PLATELET 139 x10EE3/UL Low 150 - 450 [facility] Comment on above: Performed By: #### 2 33635 #### [facility],[address] [place] [address] Platelet mean volume (Bld) [Entitic vol] 8.1 fL Normal 6.6 - 10.5 [facility] Comment on above: Result Comment: AUTO MATED DIFFERENTIAL Performed By: #### 2 37748 #### [facility],[address] [place], [place] [id number] RBC 4.57 x 10EE6/UL Normal 4.10 - 5.30 [facility] Comment on above: Performed By: #### 2 90540 #### [facility],[address] [place] [address] 70536 WBC 3.8 x 10EE3/UL Low 4.5 - 10.8 [facility] Comment on above: Performed By: #### 2 66791 #### [facility],[address] [place] [address] 46145 CMP with eGFRon 08-08-2024 AGE 88 years Normal [facility] Comment on above: Performed By: #### 2 73578 #### [facility],[address] [place] [address] 43125 Albumin [Mass/Vol] 2.9 g/dL Low 3.4 - 5.0 [facility] Comment on above: Performed By: #### 2 42309 #### [facility],[address] [place] [address] 45030 Albumin/Globulin [Mass ratio] 1.0 {ratio} Normal 0.9 - 1.6 [facility] Comment on above: Performed By: #### 2 22823 #### [facility],[address] [place] [address] 29862 ALK PHOS 348 U/L High 46 - 116 [facility] Comment on above: Performed By: #### 2 92461 #### [facility],[address] [place] [address] 62233 ALT [Catalytic activity/Vol] 137 U/L High 16 - 63 [facility] Comment on above: Performed By: #### 2 43415 #### [facility],[address] [place] [address] 40663 Anion gap [Moles/Vol] 11 mmol/L Normal 10 - 20 [facility] Comment on above: Performed By: #### 2 70181 #### [facility],[address] [place] [address] 72898 AST [Catalytic activity/Vol] 118 U/L High 13 - 39 [facility] Comment on above: Performed By: #### 2 78446 #### [facility],[address] [place] [address] 06820 B/C RATIO 12 ratio Normal 0 - 30 [facility] Comment on above: Performed By: #### 2 69696 #### [facility],[address] [place] [address] 28626 Bilirubin [Mass/Vol] 0.5 mg/dL Normal 0.2 - 1.0 [facility] Comment on above: Performed By: #### 2 09860 #### [facility],[address] [place] [address] 70134 Calcium [Mass/Vol] 8.1 mg/dL Low 8.5 - 10.1 [facility] Comment on above: Performed By: #### 2 54385 #### [facility],[address] [place] [address] 88019 Chloride [Moles/Vol] 102 mmol/L Normal 98 - 107 [facility] Comment on above: Performed By: #### 2 01961 #### [facility],[address] [place] [address] 99871 CMP with eGFR Normal [facility] Comment on above: Result Comment: COMP REHENSIVE METABOLIC PANEL Performed By: #### 2 12261 #### [facility],[address] [place] [address] 41933 CO2 [Moles/Vol] 25.7 mmol/L Normal 21.0 - 32.0 [facility] Comment on above: Performed By: #### 2 48752 #### [facility],[address] [place] [address] 42326 Creatinine [Mass/Vol] 0.65 mg/dL Normal 0.55 - 1.02 [facility] Comment on above: Performed By: #### 2 71589 #### [facility],[address] [place] [address] 35893 GFR/1.73 sq M.predicted among non-blacks MDRD (S/P/Bld) [Vol rate/Area] mL/min/{1.73_m2} Normal 60 - 999 [facility] Comment on above: Performed By: #### 2 52348 #### [facility],[address] [place] [address] 23816 Result Comment: ACCO RDING TO THE NATIONAL KIDNEY DISEASE EDUCATION PROGRAM(NKDE), A NORMAL eGFR IS A VALUE GREATER THAN OR EQUAL TO 60 ML/MIN/1.73 SQ METERS. CHRONIC KIDNEY DISEASE: <60mL/MIN/1.73 SQ METERS KIDNEY FAILURE: <15mL/MIN/1.73 SQ METERS THIS TEST SHOULD ONLY BE USED FOR PATIENTS 18 YEARS OF AGE AND OLDER. Globulin (S) [Mass/Vol] 2.9 g/dL Normal 1.5 - 3.8 [facility] Comment on above: Performed By: #### 2 59549 #### [address] [address] Glucose [Mass/Vol] 109 mg/dL High 74 - 106 [facility] Comment on above: Performed By: #### 2 24420 #### [address] [address] Potassium [Moles/Vol] 4.1 mmol/L Normal 3.5 - 5.1 [facility] Comment on above: Performed By: #### 2 57945 #### [facility],[address] [place] [address] 82994 Protein [Mass/Vol] 5.8 g/dL Low 6.4 - 8.2 [facility] Comment on above: Performed By: #### 2 62640 #### [address] [address] Sodium [Moles/Vol] 135 mmol/L Low 136 - 145 [facility] Comment on above: Performed By: #### 2 15753 #### [address] [address] Urea nitrogen [Mass/Vol] 8 mg/dL Normal 7 - 18 [facility] Comment on above: Performed By: #### 2 32601 #### [facility],[address] [place] [address] 99916 TROPONIN I, HIGH SENSITIVITY on 08-08-2024 HS TROPONIN 7.7 pg/mL Normal 0.0 - 51.4 [facility] Comment on above: Performed By: #### 2 80758 ####[facility],[address] [place] [address] 15476 HS TROPONIN 5.7 pg/mL Normal 0.0 - 51.4 [facility] Comment on above: Performed By: #### 2 29113 #### [facility],[address] [place] [address] 55182 CBC + DIFFon 08-07-2024 Baso # 0.00 x10EE3/UL Normal 0.00 - 0.10 [facility] Comment on above: Performed By: #### 2 72602 #### [facility],[address] [place] [address] 23215 Basophils/100 WBC (Bld) 0.1 % Normal 0.0 - 2.0 [facility] Comment on above: Performed By: #### 2 44518 #### [facility],[address] [place] [address] 36548 CBC + DIFF Normal [facility] Comment on above: Result Comment: CBC- COMPLETE BLOOD COUNT Performed By: #### 2 19725 #### [facility],[address] [place] [address] 46386 EO # 0.15 x10EE3/UL Normal 0.00 - 0.50 [facility] Comment on above: Performed By: #### 2 62544 #### [facility],[address] [place] [address] 97502 Eosinophils/100 WBC (Bld) 3.9 % Normal 0.0 - 7.0 [facility] Comment on above: Performed By: #### 2 71473 #### [facility],[address] [place], [place] [id number] Erythrocyte distribution width (RBC) [Ratio] 14.1 % Normal 12.0 - 15.6 [facility] Comment on above: Performed By: #### 2 24087 #### [facility],[address] [place] [address] Hematocrit (Bld) [Volume fraction] 41.0 % Normal 34.0 - 46.0 [facility] Comment on above: Performed By: #### 2 22327 #### [facility],[address] [place] [address] Hemoglobin (Bld) [Mass/Vol] 13.6 g/dL Normal 12.0 - 16.0 [facility] Comment on above: Performed By: #### 2 28445 #### [facility],[address] [place] [address] Lymph # 0.61 x10EE3/UL Low 0.80 - 2.80 [facility] Comment on above: Performed By: #### 2 67710 #### [facility],[address] [place], [place] [phone] Lymphocytes/100 WBC (Bld) 15.6 % Low 20.0 - 45.0 [facility] Comment on above: Performed By: #### 2 86335 #### [facility],[address] [place], [place] [phone] MANUAL DIFF N/A Normal [facility] Comment on above: Performed By: #### 2 16513 #### [facility],[address] [place] [address] 17523 MCH (RBC) [Entitic mass] 28 pg Normal 27 - 33 [facility] Comment on above: Performed By: #### 2 46985 #### [facility],[address] [place] [address] 04858 MCHC 33 X10 3 Normal 32 - 36 [facility] Comment on above: Performed By: #### 2 00653 #### [facility],[address] [place] [address] 86089 MCV (RBC) [Entitic vol] 84 fL Normal 80 - 99 [facility] Comment on above: Performed By: #### 2 18783 #### [facility],[address] [place] [address] 15807 [place] # 0.36 x10EE3/UL Normal 0.20 - 1.00 [facility] Comment on above: Performed By: #### 2 79180 #### [facility],[address] [place] [address] 42259 MONOS % 9.3 % Normal 0.0 - 10.0 [facility] Comment on above: Performed By: #### 2 65478 #### [facility],[address] [place] [address] Morphology Michael (Bld) [Interp] N/A Normal [facility] Comment on above: Performed By: #### 2 50097 #### [facility],[address] [place] [address] 08011 Neut # 2.78 x10EE3/UL Normal 1.50 - 7.10 [facility] Comment on above: Performed By: #### 2 55648 #### [facility],[address] [place] [address] 59272 Neutrophils/100 WBC (Bld) 71.1 % Normal 46.0 - 76.0 [facility] Comment on above: Performed By: #### 2 08954 #### [facility],[address] [place] [address] 24101 PLATELET 146 x10EE3/UL Low 150 - 450 [facility] Comment on above: Performed By: #### 2 81777 #### [facility],[address] [place] [address] 74714 Platelet mean volume (Bld) [Entitic vol] 8.0 fL Normal 6.6 - 10.5 [facility] Comment on above: Result Comment: AUTO MATED DIFFERENTIAL Performed By: #### 2 31428 #### [facility],[address] [place] [address] 99658 RBC 4.88 x 10EE6/UL Normal 4.10 - 5.30 [facility] Comment on above: Performed By: #### 2 37499 #### [facility],[address] [place] [address] 95721 WBC 3.9 x 10EE3/UL Low 4.5 - 10.8 [facility] Comment on above: Performed By: #### 2 80972 #### [facility],[address] [place] [address] 37316 CMP with eGFRon 08-07-2024 AGE 88 years Normal [facility] Comment on above: Performed By: #### 2 74497 #### [facility],[address] [place] [address] 16549 Albumin [Mass/Vol] 3.4 g/dL Normal 3.4 - 5.0 [facility] Comment on above: Performed By: #### 2 11531 #### [facility],[address] [place] [address] 51407 Albumin/Globulin [Mass ratio] 1.2 {ratio} Normal 0.9 - 1.6 [facility] Comment on above: Performed By: #### 2 21530 #### [facility],[address] [place] [address] 06411 ALK PHOS 287 U/L High 46 - 116 [facility] Comment on above: Performed By: #### 2 55285 #### [facility],[address] [place] [address] 69533 ALT [Catalytic activity/Vol] 97 U/L High 16 - 63 [facility] Comment on above: Performed By: #### 2 20186 #### [facility],[address] [place] [address] 46049 Anion gap [Moles/Vol] 13 mmol/L Normal 10 - 20 [facility] Comment on above: Performed By: #### 2 26358 #### [facility],[address] [place] [address] 32360 AST [Catalytic activity/Vol] 89 U/L High 13 - 39 [facility] Comment on above: Performed By: #### 2 78428 #### [facility],[address] [place] [address] 87746 B/C RATIO 8 ratio Normal 0 - 30 [facility] Comment on above: Performed By: #### 2 04045 #### [facility],[address] [place] [address] 28804 Bilirubin [Mass/Vol] 0.8 mg/dL Normal 0.2 - 1.0 [facility] Comment on above: Performed By: #### 2 26157 #### [facility],[address] [place] [address] 89947 Calcium [Mass/Vol] 8.5 mg/dL Normal 8.5 - 10.1 [facility] Comment on above: Performed By: #### 2 30581 #### [facility],[address] [place] [address] 88878 Chloride [Moles/Vol] 100 mmol/L Normal 98 - 107 [facility] Comment on above: Performed By: #### 2 71071 #### [facility],[address] [place] [address] 82217 CMP with eGFR Normal [facility] Comment on above: Result Comment: COMP REHENSIVE METABOLIC PANEL Performed By: #### 2 94256 #### [facility],[address] [place] [address] 06826 CO2 [Moles/Vol] 26.7 mmol/L Normal 21.0 - 32.0 [facility] Comment on above: Performed By: #### 2 12211 #### [facility],[address] [place] [address] 85880 Creatinine [Mass/Vol] 0.93 mg/dL Normal 0.55 - 1.02 [facility] Comment on above: Performed By: #### 2 58376 #### [facility],[address] [place] [address] 29944 eGFR 57 ML/MINUTE Low 60 - 999 [facility] Comment on above: Performed By: #### 2 20805 #### [facility],[address] [place] [address] 55468 GFR/1.73 sq M.predicted among non-blacks MDRD (S/P/Bld) [Vol rate/Area] mL/min/{1.73_m2} Normal 60 - 999 [facility] Comment on above: Result Comment: ACCO RDING TO THE NATIONAL KIDNEY DISEASE EDUCATION PROGRAM(NKDE), A NORMAL eGFR IS A VALUE GREATER THAN OR EQUAL TO 60 ML/MIN/1.73 SQ METERS. CHRONIC KIDNEY DISEASE: <60mL/MIN/1.73 SQ METERS KIDNEY FAILURE: <15mL/MIN/1.73 SQ METERS THIS TEST SHOULD ONLY BE USED FOR PATIENTS 18 YEARS OF AGE AND OLDER. Performed By: #### 2 41375 #### [facility],[address] [place] [address] 96942 Globulin (S) [Mass/Vol] 2.9 g/dL Normal 1.5 - 3.8 [facility] Comment on above: Performed By: #### 2 57366 #### [facility],[address] [place] [address] 85630 Glucose [Mass/Vol] 109 mg/dL High 74 - 106 [facility] Comment on above: Performed By: #### 2 50134 #### [facility],[address] [place] [address] 25481 Potassium [Moles/Vol] 4.6 mmol/L Normal 3.5 - 5.1 [facility] Comment on above: Performed By: #### 2 36018 #### [facility],[address] [place] [address] 82393 Protein [Mass/Vol] 6.3 g/dL Low 6.4 - 8.2 [facility] Comment on above: Performed By: #### 2 25437 #### [facility],[address] [place] [address] 47272 Sodium [Moles/Vol] 135 mmol/L Low 136 - 145 [facility] Comment on above: Performed By: #### 2 90441 #### [facility],[address] [place] [address] 73702 Urea nitrogen [Mass/Vol] 7 mg/dL Normal 7 - 18 [facility] Comment on above: Performed By: #### 2 44602 #### [facility],[address] [place] [address] 27779 CORONAVIRUS (SARS) ANTIGEN T ESTon 08-07-2024 EXTERNAL QC DONE? YES Normal [facility] Comment on above: Performed By: #### 2 34495 ####[facility],[address] [place] [address] 62309 INTERNAL CONTROL PASS Normal [facility] Comment on above: Performed By: #### 2 92981 ####[facility],[address] [place] [address] 66842 SARS ANTIGEN Negative Normal NORMAL: NEGATIVE [facility] Comment on above: Performed By: #### 2 50270 ####[facility],[address] [place] [address] 13607 SEND TO ? NO Normal [facility] Comment on above: Result Comment: SARS -CoV-2 THIS TEST IS BEING USED UNDER THE FDA EUA PROCEDURE. THIS ASSAY HAS BEEN VALIDATED AT [facility] FOR USE WITH NASAL AND NASOPHARYNGEAL SWAB SPECIMENS. INTERPRETIVE DATA TEST RESULTS SHOULD ALWAYS BE CONSIDERED IN THE CONTEXT OF CLINICAL OBSERVATIONS AND EPIDEMIOLOGICAL DATA IN MAKING FINAL DIAGNOSIS AND PATIENT MANAGEMENT DECISIONS. PATIENT MANAGEMENT SHOULD FOLLOW CURRENT CDC GUIDELINES. THE NORMAN SARS ANTIGEN NATALIE DOES NOT DIFFERENTIATE BETWEEN SARS-CoV & SARS-CoV-2. A POSITIVE TEST RESULT INDICATES THE PRESENCE OF SARS-CoV-2 NUCLEOCAPSID PROTEIN ANTIGEN, AND THE PATIENT IS INFECTED WITH THE VIRUS AND PRESUMED TO BE CONTAGIOUS. A NEGATIVE TEST RESULT FOR THIS TEST MEANS THAT SARS-CoV-2 NUCLEOCAPSID PROTEIN ANTIGEN WAS NOT PRESENT IN THE SPECIMEN ABOVE THE LIMIT OF DETECTION. HOWEVER, A NEGATIVE RESULT DOES NOT RULE OUT COVID-19 AND SHOULD NOT BE USED THE SOLE BASIS FOR TREATMENT OR PATIENT MANAGEMENT DECISIONS. A NEGATIVE RESULT DOES NOT EXCLUDE THE POSSIBILITY OF COVID-19. NEGATIVE RESULTS, FROM PATIENTS WITH SYMPTOM ONSET BEYOND FIVE DAYS, SHOULD BE TREATED PRESUMPTIVE AND CONFIRMATION WITH A MOLECULAR ASSAY, IF NECESSARY, FOR PATIENT MANAGEMENT, MAY BE PERFORMED. WHEN DIAGNOSTIC TESTING IS NEGATIVE, THE POSSIBLILTY OF A FALSE NEGATIVE RESULT SHOULD BE CONSIDERED IN THE CONTEXT OF A PATIENT'S RECENT EXPOSURES AND THE PRESENCE OF CLINICAL SIGNS AND SYMPTOMS CONSISTENT WITH COVID-19. THE POSSIBILITY OF A FALSE NEGATIVE RESULT SHOULD ESPECIALLY BE CONSIDERED IF THE PATIENT'S RECENT EXPOSURES OR CLINICAL PRESENTATION INDICATE THAT COVID-19 IS LIKELY, AND DIAGNOSTIC TESTS FOR OTHER CAUSES OF ILLNESS (e.g., OTHER RESPIRATORY ILLNESS) ARE NEGATIVE. IF COVID-19 IS STILL SUSPECTED BASED ON EXPOSURE HISTORY TOGETHER WITH OTHER CLINICAL FINDINGS, RE-TESTING SHOULD BE CONSIDERED BY HEALTHCARE PROVIDERS IN CONSULTATION WITH PUBLIC HEALTH AUTHORITIES. Performed By: #### 2 98741 ####[place] [address] CT CHEST (PE PROTOCOL)on CT CHEST (PE PROTOCOL) [place] [address] Patient: BRANDIE KISER Phone#: : [phone] Age: 88 Gender: F Pt. Type: ER Account: [id number] Location: [facility] Ordering: QUANG SALAS Exam Date: 08/07/2024/11:41 Family Phys: Charge Code: [id number] Physician: [place] Order #: [id number] Dose#: [id number] PROCEDURE: CT CHEST WITH CONTRAST FOR PE COMPARISON: None. INDICATIONS: Pulmonary disease. TECHNIQUE: After obtaining the patient's consent, CT images were obtained with non-ionic intravenous contrast material. Multi-planar images were created to optimize visualization of vascular anatomy with MPR/MIPS and 3D imaging. All CT scans at this facility use dose modulation, iterative reconstruction, and/or weight based dosing when appropriate to reduce radiation dose to as low as reasonably achievable. IV CONTRAST: Omnipaque 350,100ml TOTAL DOSE: 5.9 CTDIvol(mGy) FINDINGS: VASCULATURE: Normal. No visible pulmonary arterial thrombus or attenuation. AORTA: Normal. No aneurysm or dissection. LUNGS: Normal. No visible pulmonary disease. LACY: Normal. No mass or adenopathy. MEDIASTINUM: A few nonspecific paratracheal lymph nodes are present. No mass or adenopathy. CARDIAC: Normal. No enlargement, pericardial thickening, or significant calcification. PLEURA: Normal. No mass or effusion. CHEST WALL: Normal. No mass or axillary adenopathy. LIMITED ABDOMEN: A 13 millimeter right renal cortical cyst is present. Limited images of the upper abdomen are unremarkable. BONES: Normal. No bony lesion or fracture. OTHER: There is elevation of the right hemidiaphragm.. CONCLUSION: 1. There is no evidence of pulmonary embolus. 2. There is no evidence of focal parenchymal abnormality. [place] [address] Patient: BRANDIE KISER Phone#: : [phone] Age: 88 Gender: F Pt. Type: ER Account: [id number] Location: [facility] Ordering: QUANG SALAS Exam Date: 08/07/2024/11:41 Family Phys: Charge Code: [id number] Physician: [place] Order #: [id number] Dose#: [id number] Dictated by: Rayna Kinney MD on 08/07/2024 at 12:24 Approved by: Rayna Kinney MD on 08/07/2024 at 12:29 [facility] ED MED ADMINISTRATION DETAIL on 08-07-2024 ED MED ADMINISTRATION DETAIL [employer]ding [employer] Operator Medication Administration Record [address] [address] [id number] 08/07/2024 Patient: BRANDIE KISER Sex: Female : 1935 Age: 88y MEASUREMENTS: Wt: 65.8 kg, Ht/Martínez: 62.0 in, BMI: 26.52 ALLERGIES: Penicillins, codeine Medication Ordered Medication Administration Date/Time Piperacillin-Tazoba 10:57 08/07 Piperacillin-Tazobac (Zosyn) IVPB 3.375gm/50ml NS Started c (Zosyn) IVPB 3.375 g started at 100 mL/hr diluted in sodium chloride IVPB 0.9 % 10:57 08/07/2024 3.375gm/50ml NS Minibag+ 50 mL via Site# 1. - 10:57 Sushant Schmidt R.N. 3.375 g diluted in Stopped sodium chloride 14:21 08/07 Medication Discontinued: IV. Total amount infused: 50 14:21 08/07/2024 IVPB 0.9 % mL. - 17:21 Sushant Rivera R.N. Minibag+ 50 mL at Not Scanned 100 mL/hr (NOW x1) IV NS 0.9 % 1000 10:51 08/07 IV NS 0.9 % 1000 mL started in bag#1 1000 mL at Started mL at 250 mL/hr 250 mL/hr via Site# 1. - 10:52 Bc Robledo R.N. 10:51 08/07/2024 (NOW x1) Bc Robledo R.N. 15:14 08/07 Medication Discontinued: IV infused upon admission. Stopped Total amount infused: 1000 mL. IV patency established. IV site 15:14 08/07/2024 checked: no pain, redness, or swelling. IV flushed thoroughly Vandana Delgado R.N. post-medication administration. - 17:24 Vandana Delgado R.N. Scanned Albuterol-Ipratropiu 13:11 08/07 Albuterol-Ipratropium (DuoNeb) 3mg/0.5mg Neb Tx 3 Given m (DuoNeb) mL given. - 13:11 Maynor Worley 13:11 08/07/2024 3mg/0.5mg Neb Tx Maynor Worley 3 mL (NOW x1) Scanned 1 of 1 Normal [facility] ED NURSES CLINICAL NOTEon ED NURSES CLINICAL NOTE Nurse Narrative Nurse Clinical [address] [place] [address] [phone] 08/07/2024 [id number] Sex[facility] Female : 1935 Age: 88y Disposition: Admit to [facility] Disposition Decision Time: 12:55 08/07/2024 Departure Time: 16:30 08/07/2024 TRIAGE Arrived by private vehicle. Historian: patient. Accompanied by family. Primary physician (Connie Choudhury). ( Was seen here on Saturday for lt leg cellulitis). Triage time: 10:10 08/07/2024. Acuity: LEVEL 2. Chief Complaint: FEVER and BODY ACHES and SHORTNESS OF BREATH. Alert. This started yesterday. The patient has had chest pain (tightness). SEPSIS SCREEN: NEGATIVE. SIRS criteria negative. Possible sources of infection: infection of skin and Shortness of breath. -- 10:28 08/07/24 HERMES Schilling R.N. 10:17 08/07/24. HR: 81 bpm. O2 saturation: 85%. -- 10:26 08/07/24 HERMES Schilling R.N. 10:24 08/07/24. BP: 126/61 MAP: 85 mmHg. HR: 77 bpm. -- 10:08/07/24 HERMES Schilling R.N. 10:08/07/24. O2 saturation: 94% on nasal cannula at 3 liters/minute. Temperature: 98 F (oral). Pain level now 5/10. Describes the pain as pressure. -- 10:26 08/07/24 HERMES Schilling R.N. 10:08/07/24. RR: 18. O2 saturation: 94% on nasal cannula at 3 liters/minute. Temperature: 98 F (oral). Pain level now 5/10. Describes the pain as pressure. -- 10:41 08/07/24 HERMES Schilling R.N. Measurements: 10:08/07/24 Wt: 65.8 kg, Ht/Martínez: 62.0 in, BMI: 26.52 -- 10:08/07/24 HERMES Schilling R.N. 1 of 5 Nurse Narrative Medications: Synthroid 25 mcg tablet: TAKE ONE TABLET ONCE DAILY ONE HOUR BEFORE A MEAL -- 10:39 08/07/24 HERMES Schilling R.N. sertraline 50 mg tablet: Take 1 tablet every day by mouth as directed, for anxiety and depression. -- 10:39 08/07/24 HERMES Schilling R.N. potassium chloride ER 10 mEq tablet,extended release: take 1 tablet by mouth daily -- 10:08/07/24 HERMES Schilling R.N. ondansetron 4 mg disintegrating tablet: TAKE 1 TABLET BY MOUTH EVERY 6 HOURS NEEDED FOR NAUSEA - DISSOLVE ON TONGUE THEN SWALLOW -- 10:08/07/24 HERMES Schilling R.N. omeprazole 40 mg capsule,delayed release: take 1 capsule by mouth daily -- 10:08/07/24 EST Graciela Schilling R.N. mupirocin 2 % topical ointment: Apply topically up to twice daily to affected areas -- 10:08/07/24 HERMES Schilling R.N. metoprolol tartrate 25 mg tablet: take 1 tablet by mouth daily -- 10:08/07/24 HERMES Schilling R.N. fluorouracil 5 % topical cream: Apply topically to the affected area TWICE DAILY FOR EIGHT WEEKS -- 10:08/07/24 HERMES Schilling R.N. atorvastatin 20 mg tablet: take 1 tablet by mouth daily -- 10:08/07/24 HERMES Schilling R.N. MediHoney (honey) 80 % topical gel: Apply 1 application every day by topical route as directed, for left lower leg wound. -- 10:39 08/07/24 HERMES Schilling R.N. minocycline 100 mg capsule: Stopped 08/07/2024. -- 10:39 08/07/24 HERMES Schilling R.N.Correction -- 13:09 08/07/24 HERMES Schilling R.N. potassium chloride ER 10 mEq tablet,extended release: 1 tablet once a day. Stopped 08/07/2024. -- 10:39 08/07/24 HERMES Schilling R.N.Correction -- 13:08 08/07/24 HERMES Schilling R.N. omeprazole 40 mg capsule,delayed release: 1 capsule once a day. Stopped 08/07/2024. -- 10:39 08/07/24 HERMES Schilling R.N.Correction -- 13:08 08/07/24 HERMES Schilling R.N. mupirocin 2 % topical ointment: 1 twice a day. Stopped 08/07/2024. -- 10:39 08/07/24 HERMES Schilling R.N.Correction -- 13:08 08/07/24 HERMES Schilling R.N. minocycline 100 mg capsule: 1 capsule twice a day. Stopped 08/07/2024. (for 14 days, filled 07/14.) -- 10:39 08/07/24 HERMES Schilling R.N.Correction -- 13:09 08/07/24 HERMES Schilling R.N. metoprolol tartrate 25 mg tablet: 1 tablet once a day. Stopped 08/07/2024. -- 10:39 08/07/24 HERMES Schilling R.N.Correction -- 13:09 08/07/24 HERMES Schilling R.N. fluorouracil 5 % topical cream: 1 twice a day. Stopped 08/07/2024. (for 8 weeks) -- 10:39 08/07/24 HERMES Schilling R.N.Correction -- 13:09 08/07/24 HERMES Schilling R.N. atorvastatin 20 mg tablet: 1 tablet once a day. Stopped 08/07/2024. -- 10:39 08/07/24 HERMES Schilling R.N.Correction -- 13:09 08/07/24 HERMES Schilling R.N. azithromycin 250 mg tablet: 1 tablet once a day. Stopped 08/07/2024. (2 tabs on day one, start date 07/30.) -- 10:39 08/07/24 HERMES Schilling R.N.Correction -- 13:09 08/07/24 HERMES Schilling R.N. 2 of 5 Nurse Narrative Allergies: Penicillins -- 10:14 08/07/24 HERMES Schilling R.N. codeine -- 10:14 08/07/24 HERMES Schilling R.N. Problems: Squamous cell carcinoma of leg -- 10:14 08/07/24 HERMES Schilling R.N. Hypothyroidism -- 10:14 08/07/24 HERMES Schilling R.N. ADDITIONAL SURGERIES: C (more content not included)... [facility] ED ORDER SHEET (CPOE ONLY)on 08-07-2024 ED ORDER SHEET (CPOE ONLY) Order Sheet Order Sheet [address] [place] [address] [id number] 08/07/2024 Patient: BRANDIE KISER Sex: Female : 1935 Age: 88y MEASUREMENTS: Wt: 65.8 kg, Ht/Martínez: 62.0 in, BMI: 26.52 ALLERGIES: Penicillins, codeine MEDICATION/IV/DRIP/FLUID ORDERS Order Description Priority Entered Acknowledged Completed Piperacillin-Tazobac (Zosyn) 10:34 08/07/2024 10:52 10:57 IVPB 3.375gm/50ml NS3.375 g Quang Salas, 08/07/2024 08/07/2024 diluted in sodium chloride IVPB D.OBc Min 0.9 % Minibag+ 50 mL at 100 R.N. R.N. mL/hr (NOW x1) Reason for ordering with alerts: Benefits outweigh risks --10:34 08/07/2024 Quang Salas D.O. IV NS 0.9 %1000 mL at 250 10:34 08/07/2024 10:52 mL/hr (NOW x1) Quang Salas, 08/07/2024 Mary Robledo R.N. Albuterol-Ipratropium (DuoNeb) 12:37 08/07/2024 13:11 3mg/0.5mg Neb Tx3 mL (NOW Quang Salas, 08/07/2024 x1) Mary Worley Reason for ordering with alerts: Benefits outweigh risks --12:37 08/07/2024 Quang Salas D.O. 1 of 3 Order Sheet LAB ORDERS Order Description Priority Entered Acknowledged Collected Completed CBC w Diff Stat Stat 10:34 08/07/2024 10:41 08/07/2024 10:46 08/07/2024 Bc Turner R.N. Kobe Miller, R.N. D.ODavid CMP Stat Stat 10:34 08/07/2024 10:41 08/07/2024 10:46 08/07/2024 Bc Turner R.N. Kobe Miller, R.N. D.O. Troponin-I Stat Stat 10:34 08/07/2024 10:41 08/07/2024 10:46 08/07/2024 Bc Turner R.N. Kobe Miller, R.N. D.ODavid EKG - ED Stat Stat 10:34 08/07/2024 10:41 08/07/2024 10:46 08/07/2024 Bc Turner R.N. Kobe Miller, R.N. D.ODavid Flu Swab (Influenzae Stat 10:34 08/07/2024 10:41 08/07/2024 10:46 08/07/2024 AAg) Stat Bc Turner R.N. Kobe Miller, R.N. D.ODavid Rapid COVID (SARS) Stat 10:34 08/07/2024 10:41 08/07/2024 10:46 08/07/2024 ANTIGEN TEST Stat Bc Turner R.N. Kobe Miller, R.N. D.ODavid Lactate, Serum Stat Stat 10:34 08/07/2024 10:41 08/07/2024 10:46 08/07/2024 Bc Turner R.N. Kobe Miller, R.N. D.ODavid DIAGNOSTIC STUDY ORDERS 2 of 3 Order Sheet Order Description Priority Entered Acknowledged Completed CT Chest PE Study Stat Stat 10:34 08/07/2024 10:41 10:46 Quang Salas, 08/07/2024 08/07/2024 Bc Roberts R.N. R.N. Order Comments: 10:34 08/07/2024: Status: Not . Quang Salas D.O. Reason for Study: Pulmonary Disease STAFF ORDERS Order Description Priority Entered Acknowledged Collected Completed IV Saline Lock 10:34 08/07/2024 10:41 08/07/2024 10:46 08/07/2024 Bc Turner R.N. Kobe Miller, R.N. D.O. Silk Screener 10:34 08/07/2024 10:41 08/07/2024 10:46 08/07/2024 Bc Turner R.N. Kobe Miller, R.N. D.O. Oxygen titrate to 92% 10:34 08/07/2024 10:41 08/07/2024 10:46 08/07/2024 Bc Turner R.N. Kobe Miller, R.N. D.O. [Electronically signed by Quang Salas D.O. (08/07/2024 18:24 EST)] 3 of 3 [facility] ED PHYSICIAN CLINICAL REPORT on 08-07-2024 ED PHYSICIAN CLINICAL REPORT Narrative Physician Clinical Narrative [address] [address] [id number] 08/07/2024 Patient: BRANDIE KISER Sex: Female : 1935 Age: 88y Disposition: Admit to [facility] Disposition Decision Time: 12:55 08/07/2024 Departure Time: 16:30 08/07/2024 Measurements Wt: 65.8 kg, Ht/Martínez: 62.0 in, BMI: 26.52 Initial Vital Sign Measured Time BP MAP HR RR O2Sat ETCO2 Temp Pain GCS RTS 10:17 08/07/2024 81 85% Time Seen: 10:11 08/07/2024. Arrived- By private vehicle. Historian- patient. Independent historian- family. HISTORY OF PRESENT ILLNESS Chief Complaint: FEVER and NOT FEELING WELL. (patient stated she was diagnosed with skin cancer in May. Which she took a cream 2 times a day for 5 weeks. And then she developed redness and pain in her left leg which she was started on antibiotics. She has not been feeling well and came in with a fever today she also had some chest tightness she does have nausea she feels weak and tired and presents to the emergency department also has a headache. She has a history of coronary disease which she has 2 stents.). Is still present. No muscle aches, loss of appetite, chest pain or dyspnea. REVIEW OF SYSTEMS NEUROLOGICAL: No headache. CVS: No palpitations or calf pain. CONSTITUTIONAL: No anorexia. SKIN: No tick bite. GI: No nausea or vomiting. Status: Not . 1 of 15 Narrative PAST HISTORY Hypothyroidism Squamous cell carcinoma of leg Surgeries: Appendectomy Back Surgery Cardiac Catheterization: (Two stents placed.) Cholecystectomy Knee Surgery Medications: atorvastatin 20 mg tablet: take 1 tablet by mouth daily fluorouracil 5 % topical cream: Apply topically to the affected area TWICE DAILY FOR EIGHT WEEKS MediHoney (honey) 80 % topical gel: Apply 1 application every day by topical route as directed, for left lower leg wound. metoprolol tartrate 25 mg tablet: take 1 tablet by mouth daily mupirocin 2 % topical ointment: Apply topically up to twice daily to affected areas omeprazole 40 mg capsule,delayed release: take 1 capsule by mouth daily ondansetron 4 mg disintegrating tablet: TAKE 1 TABLET BY MOUTH EVERY 6 HOURS NEEDED FOR NAUSEA - DISSOLVE ON TONGUE THEN SWALLOW potassium chloride ER 10 mEq tablet,extended release: take 1 tablet by mouth daily sertraline 50 mg tablet: Take 1 tablet every day by mouth as directed, for anxiety and depression. Synthroid 25 mcg tablet: TAKE ONE TABLET ONCE DAILY ONE HOUR BEFORE A MEAL Allergies: codeine Penicillins SOCIAL HISTORY Never smoker. No alcohol use. ADDITIONAL NOTES The nursing notes have been reviewed. 2 of 15 Narrative PHYSICAL EXAM Appearance: Alert. No acute distress. Eyes: Pupils equal, round and reactive to light. Eyes normal inspection. ENT: Ears normal. Nose normal. Neck: Normal inspection. Neck supple. CVS: Normal heart rate and rhythm. Heart sounds normal. Respiratory: No respiratory distress. Breath sounds normal. Abdomen: Soft and nontender. Back: Normal inspection. Skin: Normal skin color. Normal skin turgor. Extremities: (patient has an area proximally 2 and half area cm in diameter her left leg which is necrotic with redness around the area and redness in her lower leg.). Extremities nontender. Neuro: Oriented X 3. No motor deficit. LABS, X-RAYS, AND EKG 12-LEAD EKG: EKG time: 10:13 08/07/2024. No acute process. Rate: 87. Normal P waves. Normal ANDREY. Normal QRS complex. Normal axis. Normal ST and T waves. T wave flattening in lead III, aVF, V2 and V3. Changes present when compared to prior EKG. EKG unchanged when compared with prior EKG. The study has been interpreted contemporaneously by me. The EKG appears to be a good tracing. Interpretation time: 10:14 08/07/2024. Laboratory Tests: CBC + DIFF Final LISETTE: 08/07/2024 10:40:00 EST MsgRcvd: 08/07/2024 11:05 EST Lab Test Result Reference Status Received Comments 08/07/2024 11:05 CBC-COMPLETE CBC + DIFF Final EST BLOOD COUNT 3.9 x 10/UL 08/07/2024 11:05 WBC 4.5 - 10.8 Final Below low normal EST 3 of 15 Narrative 08/07/2024 11:05 RBC 4.88 x 10/UL 4.10 - 5.30 Final EST 08/07/2024 11:05 HEMOGLOBIN 13.6 g/dl 12.0 - 16.0 Final EST 08/07/2024 11:05 HEMATOCRIT 41.0 % 34.0 - 46.0 Final EST 08/07/2024 11:05 MCV 84 fl 80 - 99 Final EST 08/07/2024 11:05 MCH 28 pg 27 - 33 Final EST 08/07/2024 11:05 MCHC 33 X10 3 32 - 36 Final EST 08/07/2024 11:05 RDW/CV 14.1 % 12.0 - 15.6 Final EST 146 x10/UL 08/07/2024 11:05 PLATELET 150 - 450 Final Below low normal EST 08/07/2024 11:05 AUTOMATED MPV 8.0 fl 6.6 - 10.5 Final EST DIFFERENTIAL 08/07/2024 11:05 NEUT % 71.1 % 46.0 - 76.0 Final EST 15.6 % 08/07/2024 11:05 LYMPH % 20.0 - 45.0 Final Below (more content not included)... [facility] ED [facility] BILLon 08-07-2024 ED SUPER BILL Superbill [address] [address] [id number] 08/07/2024 Patient: BRANDIE KISER Sex: Female : 1935 Age: 88y Facility Professional Category Item Description Code Code Quantity Fee Total Nurse/E/M EMERGENCY 911469 1 $0.00 $0.00 DEPT VISIT HIGH SEVERITYFUNCJ (51899-00) Nurse/IV/IM/Infusions Drip/IVPB 495103 2 $0.00 $0.00 additional hour (58559) Nurse/IV/IM/Infusions Drip/IVPB initial 381785 1 $0.00 $0.00 (32271) Nurse/IV/IM/Infusions Hydration 865040 1 $0.00 $0.00 additional hour (66269) Nurse/Procedures Respiratory 836503 1 $0.00 $0.00 therapy - inhalation (26015) Grand $0.00 Total Providers Quang Salas D.O. 1 of 2 [facility] Chief Complaint FEVER and NOT FEELING WELL. Principal Diagnosis Cellulitis of the left lower leg. Probable hypoxia. ICD-10 Codes L03.116: Cellulitis of left lower limb 2 of 2 [facility] ED VISIT SUMMARYon ED VISIT SUMMARY Visit Overview Visit Overview [address] [address] [id number] 08/07/2024 Patient: BRANDIE KISER Sex: Female : 1935 Age: 88y 08/07/2024 06:24 PM EST ED Arrival:10:10 08/07/2024 EST Status:not Recent Travel:no Language:eng Adv Directive:Yes Isolation Status: Ethnicity:N Fall Risk:risk Infectious Disease Exposure:no Measurements:5'2 / 157.5 Self-Harm Status:no risk Sepsis Screen:negative cm 145.0 lb / 65.8 kg Chief Complaint:BODY ACHES, FEVER, SHORTNESS OF BREATH, ([facility] [place]), (Shortness of breath), (tightness), and (Was seen here on Saturday for lt leg cellulitis) ALLERGIES codeine Penicillins HOME MEDICATIONS atorvastatin 20 mg tablet: take 1 tablet by mouth daily fluorouracil 5 % topical cream: Apply topically to the affected area TWICE DAILY FOR EIGHT WEEKS 1 of 4 Visit Overview MediHoney (honey) 80 % topical gel: Apply 1 application every day by topical route as directed, for left lower leg wound. metoprolol tartrate 25 mg tablet: take 1 tablet by mouth daily mupirocin 2 % topical ointment: Apply topically up to twice daily to affected areas omeprazole 40 mg capsule,delayed release: take 1 capsule by mouth daily ondansetron 4 mg disintegrating tablet: TAKE 1 TABLET BY MOUTH EVERY 6 HOURS NEEDED FOR NAUSEA - DISSOLVE ON TONGUE THEN SWALLOW potassium chloride ER 10 mEq tablet,extended release: take 1 tablet by mouth daily sertraline 50 mg tablet: Take 1 tablet every day by mouth as directed, for anxiety and depression. Synthroid 25 mcg tablet: TAKE ONE TABLET ONCE DAILY ONE HOUR BEFORE A MEAL PAST MEDICAL HISTORY / PROBLEMS Hypothyroidism Squamous cell carcinoma of leg PAST SURGICAL HISTORY Appendectomy Back Surgery Cardiac Catheterization. Two stents placed. Cholecystectomy Knee Surgery SOCIAL HISTORY Nutritional assessment: No deficits Functional assessment: No impairments Learning needs: No barriers Smoking status: No Alcohol use: No Drug use: No ED COURSE MEDICATIONS GIVEN IN EMERGENCY DEPARTMENT 10:51 08/07/24 IV NS 0.9 % 1000 mL 250 mL/hr 2 of 4 Visit Overview Piperacillin-Tazobac (Zosyn) IVPB 3.375gm/50ml NS 3.375 g diluted in sodium 10:57 08/07/24 chloride IVPB 0.9 % Minibag+ 50 mL 100 mL/hr 13:11 08/07/24 Albuterol-Ipratropium (DuoNeb) 3mg/0.5mg Neb Tx 3 mL IV SITE INFORMATION 10:41 08/07/24 Site #1 right AC, 18g. Saline lock. INTAKE OUTPUT REASSESMENT (most recent) 13:19 08/07/24. O2 saturation- 88 room air. Heart rate: (83). Respiratory rate: (18). No respiratory distress. Respirations not labored. (clear bilat through out. O2 increased to 1 lpm nc). VITAL SIGNS First Vitals Last Vitals Temp 10:17 08/07/24 Temp 16:09 08/07/24 BP 10:17 08/07/24 BP 16:09 08/07/24 127/60 HR 10:17 08/07/24 81 HR 16:09 08/07/24 80 RR 10:17 08/07/24 RR 16:09 08/07/24 O2 Sat 10:17 08/07/24 85% O2 Sat 16:09 08/07/24 Pain 10:17 08/07/24 Pain 16:09 08/07/24 ETCO2 10:17 08/07/24 ETCO2 16:09 08/07/24 GCS 10:17 08/07/24 GCS 16:09 08/07/24 RTS 10:17 08/07/24 RTS 16:09 08/07/24 PROCEDURES NURSING INTERVENTIONS Respiratory therapy LABS / STUDIES LABS / STUDIES ORDERED CBC w Diff CMP CT Chest PE Study EKG - ED 3 of 4 Visit Overview Flu Swab (Influenzae AAg) Lactate, Serum Rapid COVID (SARS) ANTIGEN TEST Troponin-I CLINICAL IMPRESSION CELLULITIS OF THE LEFT LOWER LEG POSSIBLE PNEUMONIA POSSIBLE SEVERE SEPSIS WITH ACUTE RESPIRATORY FAILURE PROBABLE HYPOXIA 4 of 4 [facility] ED VITALS FLOW SHEETon 08-07 ED VITALS FLOW SHEET Vitals Vital Sign Flow Sheet [address] [place] [address] [id number] 08/07/2024 Patient: BRANDIE KISER Sex: Female : 1935 Age: 88y Measurements Wt: 65.8 kg, Ht/Martínez: 62.0 in, BMI: 26.52 Measured Time BP MAP HR RR O2Sat ETCO2 Temp Pain GCS RTS 16:09 08/07/2024 127/60 81 80 15:54 08/07/2024 128/63 84 79 15:39 08/07/2024 121/72 85 79 15:27 08/07/2024 86 93% 15:24 08/07/2024 116/60 82 80 15:22 08/07/2024 83 96% 15:09 08/07/2024 120/61 76 79 14:54 08/07/2024 116/54 74 81 14:42 08/07/2024 83 94% 14:39 08/07/2024 105/57 79 80 14:37 08/07/2024 86 95% 14:25 08/07/2024 110/52 71 88 14:09 08/07/2024 122/58 79 82 13:54 08/07/2024 127/64 85 82 13:40 08/07/2024 139/63 88 93 1 of 4 Vitals Measured Time BP MAP HR RR O2Sat ETCO2 Temp Pain GCS RTS 13:27 08/07/2024 81 85% 13:24 08/07/2024 122/63 82 82 13:22 08/07/2024 81 91% 13:17 08/07/2024 80 89% 13:12 08/07/2024 78 94% 13:09 08/07/2024 115/64 87 78 13:07 08/07/2024 76 93% 13:02 08/07/2024 76 97% 12:57 08/07/2024 76 96% 12:54 08/07/2024 111/65 80 75 12:52 08/07/2024 78 96% 12:47 08/07/2024 88 85% 12:39 08/07/2024 132/67 88 78 12:37 08/07/2024 80 88% 12:36 08/07/2024 92% RA 12:34 08/07/2024 97.9 F 12:33 08/07/2024 95% NC 2L 12:32 08/07/2024 80 95% 12:27 08/07/2024 77 95% 12:24 08/07/2024 126/60 77 75 12:22 08/07/2024 79 94% 12:17 08/07/2024 78 97% 12:12 08/07/2024 79 95% 12:09 08/07/2024 119/63 82 78 2 of 4 Vitals Measured Time BP MAP HR RR O2Sat ETCO2 Temp Pain GCS RTS 12:07 08/07/2024 77 97% 12:02 08/07/2024 80 97% 11:57 08/07/2024 80 97% 11:54 08/07/2024 128/64 89 81 11:37 08/07/2024 77 94% 11:32 08/07/2024 73 96% 11:27 08/07/2024 75 96% 11:24 08/07/2024 114/56 94 72 11:22 08/07/2024 74 95% 11:17 08/07/2024 75 96% 11:12 08/07/2024 74 96% 11:09 08/07/2024 118/59 95 73 11:07 08/07/2024 75 93% 11:02 08/07/2024 76 93% 10:57 08/07/2024 76 94% 10:54 08/07/2024 121/100 105 80 10:52 08/07/2024 76 97% 10:42 08/07/2024 86 94% 10:40 08/07/2024 114/67 87 75 10:37 08/07/2024 77 93% 10:32 08/07/2024 76 92% 10:27 08/07/2024 78 94% 10:25 08/07/2024 18 94% NC 98.0 F 5 3L 10:24 08/07/2024 126/61 85 77 3 of 4 Vitals Measured Time BP MAP HR RR O2Sat ETCO2 Temp Pain GCS RTS 10:22 08/07/2024 79 89% 10:17 08/07/2024 81 85% 4 of 4 [facility] INFLUENZA VIRUS RAPID A/Bon 08-07-2024 INFLUENZA VIRUS RAPID A/B INFLUENZA A NEGATIVE INFLUENZA B NEGATIVE INTERNAL NEG QC PASS INTERNAL POS QC PASS EXTERNAL QC DONE? YES SEND TO IC? NO A NEGATIVE TEST RESULT DOES NOT EXCLUDE INFECTION WITH INFLUENZA A OR B. THEREFORE, THE RESULTS OBTAINED FROM THIS FLU TEST SHOULD BE USED IN CONJUCTION WITH CLINICAL FINDINGS TO MAKE AN ACCURATE DIAGNOSIS. A POSITIVE RESULT DOES NOT RULE OUT CO-INFECTIONS WITH OTHER PATHOGENS OR IDENTIFY ANY SPECIFIC INFLUENZA A VIRUS SUBTYPE.CO-INFECTION WITH INFLUENZA A AND B IS RARE. IT IS RECOMMENDED THAT DUAL POSITIVE RESULTS BE CONFIRMED BY VIRAL CULTURE OR AN FDA-CLEARED INFLUENZA A AND B MOLECULAR ASSAY. INDIVIDUALS WHO HAVE RECEIVED NASALLY ADMINISTERED INFLUENZA A VACCINE MAY TEST POSITIVE IN COMMERCIALLY AVAILABLE INFLUENZA RAPID DIAGNOSTIC TESTS FOR UP TO THREE DAYS. RESULT CRITICAL? NO [facility] Comment on above: Performed By: #### 2 [id number] ####[facility],[address] [place] [address] LACTATEon 08-07-2024 Lactate [Moles/Vol] 1.1 mmol/L Normal 0.4 - 2.0 [facility] Comment on above: Performed By: #### 2 27703 #### [facility],[address] [place] [address] TROPONINon 08-07-2024 HS TROPONIN 7.3 pg/mL Normal 0.0 - 51.4 [facility] Comment on above: Performed By: #### 2 29489 #### [facility],[address] [place] [address] CBC + DIFFon 08-02-2024 Baso # 0.04 x10EE3/UL Normal 0.00 - 0.10 [facility] Comment on above: Performed By: #### 2 74023 #### [facility],[address] [place], [place] [id number] Basophils/100 WBC (Bld) 0.6 % Normal 0.0 - 2.0 [facility] Comment on above: Performed By: #### 2 92762 #### [facility],[address] [place] [address] CBC + DIFF [facility] Comment on above: Result Comment: CBC- COMPLETE BLOOD COUNT Performed By: #### 2 75317 #### [facility],[address] [place] [address] EO # 0.32 x10EE3/UL Normal 0.00 - 0.50 [facility] Comment on above: Performed By: #### 2 50902 #### [facility],[address] [place] [address] Eosinophils/100 WBC (Bld) 4.6 % Normal 0.0 - 7.0 [facility] Comment on above: Performed By: #### 2 60632 #### [facility],[address] [place] [address] Erythrocyte distribution width (RBC) [Ratio] 14.2 % Normal 12.0 - 15.6 [facility] Comment on above: Performed By: #### 2 13275 #### [facility],[address] [place] [address] Hematocrit (Bld) [Volume fraction] 45.6 % Normal 34.0 - 46.0 [facility] Comment on above: Performed By: #### 2 56514 #### [facility],[address] [place] [address]377 Hemoglobin (Bld) [Mass/Vol] 15.0 g/dL Normal 12.0 - 16.0 [facility] Comment on above: Performed By: #### 2 14032 #### [facility],[address] [place], [place] [id number] Lymph # 1.98 x10EE3/UL Normal 0.80 - 2.80 [facility] Comment on above: Performed By: #### 2 51503 #### [facility],[address] [place], [place] [phone] Lymphocytes/100 WBC (Bld) 28.3 % Normal 20.0 - 45.0 [facility] Comment on above: Performed By: #### 2 14551 #### [facility],[address] [place] [address] MANUAL DIFF N/A [facility] Comment on above: Performed By: #### 2 06924 #### [facility],[address] [place] [address]681 MCH (RBC) [Entitic mass] 28 pg Normal 27 - 33 [facility] Comment on above: Performed By: #### 2 41477 #### [facility],[address] [place] [address] MCHC 33 X10 3 Normal 32 - 36 [facility] Comment on above: Performed By: #### 2 21838 #### [facility],[address] [place] [address]7413 MCV (RBC) [Entitic vol] 85 fL Normal 80 - 99 [facility] Comment on above: Performed By: #### 2 24998 #### [facility],[address] [place] [address] [place] # 0.51 x10EE3/UL Normal 0.20 - 1.00 [facility] Comment on above: Performed By: #### 2 24365 #### [facility],[address] [place] [address] MONOS % 7.2 % Normal 0.0 - 10.0 [facility] Comment on above: Performed By: #### 2 40833 #### [facility],[address] [place] [address] Morphology Michael (Bld) [Interp] N/A [facility] Comment on above: Performed By: #### 2 62584 #### [facility],[address] [place] [address] 64484 Neut # 4.14 x10EE3/UL Normal 1.50 - 7.10 [facility] Comment on above: Performed By: #### 2 47984 #### [facility],[address] [place] [address] 00430 Neutrophils/100 WBC (Bld) 59.3 % Normal 46.0 - 76.0 [facility] Comment on above: Performed By: #### 2 56250 #### [facility],[address] [place] [address]3083 PLATELET 203 x10EE3/UL Normal 150 - 450 [facility] Comment on above: Performed By: #### 2 48616 #### [facility],[address] [place] [address] 94069 Platelet mean volume (Bld) [Entitic vol] 7.7 fL Normal 6.6 - 10.5 [facility] Comment on above: Result Comment: AUTO MATED DIFFERENTIAL Performed By: #### 2 72333 #### [facility],[address] [place] [address] 29940 RBC 5.38 x 10EE6/UL High 4.10 - 5.30 [facility] Comment on above: Performed By: #### 2 66978 #### [facility],[address] [place] [address] 90590 WBC 7.0 x 10EE3/UL Normal 4.5 - 10.8 [facility] Comment on above: Performed By: #### 2 17608 #### [facility],[address] [place] [address] 17773 CMP with eGFRon 08-02-2024 AGE 88 years Normal [facility] Comment on above: Performed By: #### 2 76362 #### [facility],[address] [place] [address] 97700 Albumin [Mass/Vol] 3.5 g/dL Normal 3.4 - 5.0 [facility] Comment on above: Performed By: #### 2 60255 #### [facility],[address] [place] [address] 16213 Albumin/Globulin [Mass ratio] 1.1 {ratio} Normal 0.9 - 1.6 [facility] Comment on above: Performed By: #### 2 87913 #### [facility],[address] [place] [address] 25187 ALK PHOS 170 U/L High 46 - 116 [facility] Comment on above: Performed By: #### 2 25275 #### [facility],[address] [place] [address] 60679 ALT [Catalytic activity/Vol] 23 U/L Normal 16 - 63 [facility] Comment on above: Performed By: #### 2 17140 #### [facility],[address] [place] [address] 28250 Anion gap [Moles/Vol] 12 mmol/L Normal 10 - 20 [facility] Comment on above: Performed By: #### 2 95953 #### [facility],[address] [place] [address] 75671 AST [Catalytic activity/Vol] 25 U/L Normal 13 - 39 [facility] Comment on above: Performed By: #### 2 34005 #### [facility],[address] [place] [address] 91974 B/C RATIO 10 ratio Normal 0 - 30 [facility] Comment on above: Performed By: #### 2 17347 #### [facility],[address] [place] [address] 30178 Bilirubin [Mass/Vol] 0.9 mg/dL Normal 0.2 - 1.0 [facility] Comment on above: Performed By: #### 2 74893 #### [facility],[address] [place] [address] 52774 Calcium [Mass/Vol] 8.9 mg/dL Normal 8.5 - 10.1 [facility] Comment on above: Performed By: #### 2 17327 #### [facility],[address] [place] [address] 69295 Chloride [Moles/Vol] 104 mmol/L Normal 98 - 107 [facility] Comment on above: Performed By: #### 2 03686 #### [facility],[address] [place] [address] 58216 CMP with eGFR [facility] Comment on above: Result Comment: COMP REHENSIVE METABOLIC PANEL Performed By: #### 2 33259 #### [facility],[address] [place] [address] 77625 CO2 [Moles/Vol] 26.7 mmol/L Normal 21.0 - 32.0 [facility] Comment on above: Performed By: #### 2 20349 #### [facility],[address] [place] [address] 08072 Creatinine [Mass/Vol] 0.70 mg/dL Normal 0.55 - 1.02 [facility] Comment on above: Performed By: #### 2 07279 #### [facility],[address] [place] [address] 06965 GFR/1.73 sq M.predicted among non-blacks MDRD (S/P/Bld) [Vol rate/Area] mL/min/{1.73_m2} Normal 60 - 999 [facility] Comment on above: Performed By: #### 2 80693 #### [facility],[address] [place] [address] 564[address] Result Comment: ACCO RDING TO THE NATIONAL KIDNEY DISEASE EDUCATION PROGRAM(NKDE), A NORMAL eGFR IS A VALUE GREATER THAN OR EQUAL TO 60 ML/MIN/1.73 SQ METERS. CHRONIC KIDNEY DISEASE: <60mL/MIN/1.73 SQ METERS KIDNEY FAILURE: <15mL/MIN/1.73 SQ METERS THIS TEST SHOULD ONLY BE USED FOR PATIENTS 18 YEARS OF AGE AND OLDER. Globulin (S) [Mass/Vol] 3.1 g/dL Normal 1.5 - 3.8 [facility] Comment on above: Performed By: #### 2 65686 #### [address] [address] Glucose [Mass/Vol] 108 mg/dL High 74 - 106 [facility] Comment on above: Performed By: #### 2 37778 #### [facility],[address] [place] [address] 24907 Potassium [Moles/Vol] 3.9 mmol/L Normal 3.5 - 5.1 [facility] Comment on above: Performed By: #### 2 80517 #### [facility],[address] [place] [address] 87131 Protein [Mass/Vol] 6.6 g/dL Normal 6.4 - 8.2 [facility] Comment on above: Performed By: #### 2 77462 #### [facility],[address] [place] [address] 55179 Sodium [Moles/Vol] 139 mmol/L Normal 136 - 145 [facility] Comment on above: Performed By: #### 2 50903 #### [facility],[address] [place] [address] 36829 Urea nitrogen [Mass/Vol] 7 mg/dL Normal 7 - 18 [facility] Comment on above: Performed By: #### 2 58053 #### [facility],[address] [place] [address] TIB/FIB C+ LTon CT TIB/FIB C+ LT [address] [address] Patient: BRANDIE KISER Phone#: : [phone] Age: 88 Gender: F Pt. Type: ER Account: [id number] Location: [id number] Ordering: DENIS CABALLERO Exam Date: 08/02/2024/10:41 Family Phys: TOSHA XAVIER Charge Code: 341649 Physician: [place] Order #: [id number] Dose#: 14.4 mGy PROCEDURE: CT TIB FIB LT WITH CONTRAST COMPARISON: None. INDICATIONS: Infection. TECHNIQUE: After obtaining the patient's consent, multi-planar CT images were created without and with non-ionic intravenous contrast material. All CT scans at this facility use dose modulation, iterative reconstruction, and/or weight based dosing when appropriate to reduce radiation dose to as low as reasonably achievable. IV CONTRAST: Omnipaque 350,80ml TOTAL DOSE: 14.4 CTDIvol(mGy) FINDINGS: BONES: Total knee prosthesis is present. Degenerative changes are present at the ankle. There is no evidence of fracture or destructive bony change. SOFT TISSUES: Subcutaneous fat stranding is present posteriorly and laterally the calf. There is no evidence of drainable abscess. There is no evidence mass or vascular abnormality. Findings are consistent with cellulitis. EFFUSION: None visible. OTHER: Negative. CONCLUSION: 1. Findings consistent with cellulitis of the posterior and lateral calf Dictated by: Rayna Kinney MD on 08/02/2024 at 11:14 Approved by: Rayna Kinney MD on 08/02/2024 at 11:22 [facility] ED MED ADMINISTRATION DETAIL on 08-02-2024 ED MED ADMINISTRATION DETAIL [employer]ding [employer] Medication Administration Record [address] [place] [address] [id number] 08/02/2024 Patient: BRANDIE KISER Sex: Female : 1935 Age: 88y MEASUREMENTS: Wt: 65.8 kg, Ht/Martínez: 62.0 in, BMI: 26.52 ALLERGIES: Penicillins, codeine Medication Ordered Medication Administration Date/Time 1 of 1 [facility] ED NURSES CLINICAL NOTEon ED NURSES CLINICAL NOTE Nurse Narrative Nurse Clinical [address] [address] [id number] 08/02/2024 Patient: BRANDIE KISER Sex: Female : 1935 Age: 88y Disposition: Discharge to Home Disposition Decision Time: 11:41 08/02/2024 Departure Time: 11:52 08/02/2024 TRIAGE Arrived by private vehicle. Historian: patient. Accompanied by spouse. Patient has a primary care physician. Primary physician (Margarita Mercado). Triage time: 09:32 08/02/2024. Acuity: LEVEL 3. Chief Complaint: LEFT LOWER EXTREMITY PAIN. Location of symptoms- left leg. Alert. No acute distress. 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 SEPSIS SCREEN: NEGATIVE. SIRS criteria negative. No possible sources of infection. -- 09:37 08/02/24 HERMES Ackerman R.NDavid 09:37 08/02/24. BP: 159/91 taken on right arm, while sitting. MAP: 114. HR: 82. Regular. RR: 16. Regular and unlabored. O2 saturation: 94% on room air. Temperature: 97.7 F (temporal). Pain level now 8/10. -- 09:37 08/02/24 HERMES Ackerman R.N. Measurements: 09:37 08/02/24 Wt: 65.8 kg, Ht/Martínez: 62.0 in, BMI: 26.52 -- 09:37 08/02/24 HERMES Ackerman RDavidN. Medications: home medications unknown -- 09:34 08/02/24 HERMES Ackerman R.N. 1 of 4 Nurse Narrative potassium chloride ER 10 mEq tablet,extended release: 1 tablet once a day. -- 09:51 08/02/24 HERMES Up R.N. omeprazole 40 mg capsule,delayed release: 1 capsule once a day. -- 09:51 08/02/24 HERMES Up R.N. mupirocin 2 % topical ointment: 1 twice a day as needed. -- 09:51 08/02/24 HERMES Up R.N. minocycline 100 mg capsule: 1 capsule twice a day. (for 14 days, filled 07/14.) -- 09:51 08/02/24 HERMES Up R.N. metoprolol tartrate 25 mg tablet: 1 tablet once a day. -- 09:51 08/02/24 HERMES Up R.N. fluorouracil 5 % topical cream: 1 twice a day. (for 8 weeks) -- 09:51 08/02/24 HERMES Up R.N. azithromycin 250 mg tablet: 1 tablet once a day. (2 tabs on day one, start date 07/30.) -- 09:51 08/02/24 HERMES Up R.N. atorvastatin 20 mg tablet: 1 tablet once a day. -- 09:51 08/02/24 HERMES Up R.N. Allergies: Penicillins -- 09:33 08/02/24 HERMES Ackerman R.N. codeine -- 09:34 08/02/24 HERMES Ackerman R.N. Problems: Hypothyroidism -- 09:35 08/02/24 HEMRES Ackerman R.N. Squamous cell carcinoma of leg -- 09:35 08/02/24 Rodrigue Frazier.N. 09:32 08/02/24. Preferred pharmacy ([facility]). -- 09:37 08/02/24 HERMES Ackerman R.N. ADDITIONAL SURGERIES: Cardiac Catheterization. Two stents placed. -- 09:34 08/02/24 HERMES Ackerman R.N. Appendectomy -- 09:35 08/02/24 HERMES Ackerman R.N. Cholecystectomy -- 09:35 08/02/24 HERMES Ackerman R.N. Knee Surgery -- 09:36 08/02/24 HERMES Ackerman R.N. Back Surgery -- 09:36 08/02/24 HERMES Ackerman R.N. History 09:32 08/02/24. 2 of 4 Nurse Narrative PAST MEDICAL HX: Immunizations: up-to-date. SOCIAL HX: Never smoker. No alcohol use or drug use. The patient has not traveled outside the [place] Infectious disease exposure: No infectious disease exposure. ABUSE ASSESSMENT: The patient answered yes to the question(s) Do you feel safe in your home? and no to the question(s) Are you afraid to go home?. SELF HARM ASSESSMENT: Self harm assessment was performed. The patient answered no to the question(s) Have you recently felt down, depressed, or hopeless? and Do you have thoughts of harming or killing yourself?. FALL RISK ASSESSMENT: Fall risk assessment completed. Risk factors identified include patient age greater than 65 years. Fall interventions initiated. Bed in low position. Brakes on. Patient identified as a fall risk by ID band. -- 09:37 08/02/24 HERMES Ackerman R.N. Interventions 09:32 08/02/24. Identification band, allergy band and fall band on patient. -- 09:37 08/02/24 HERMES Ackerman R.N. 10:08/02/24. Advanced care plan discussed with patient (Full Code). -- 10:08/02/24 HERMES Ackerman R.N. PHYSICAL ASSESSMENT 09:45 08/02/24. Ambulatory to room. 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 Pt states treatment last five weeks and has been hurting since.). GENERAL / NEURO / PSYCH: Oriented X 4. Alert. Appears in no acute distress. ( Denies fever or chills.). EXTREMITIES: Extremity pulses are within normal limits. Extremities exhibit normal ROM. Neuro-vascular status intact to the extremity. No lower extremity edema. Normal gait. Left leg: tenderness of the posterior aspect of mid leg (Wound to calf, wound bed black. Approx. 2 cm in diameter. Minimal serous fluid to the area.). SKIN: Skin is warm and dry. -- 10:24 08/02/24 EST Jon Ackerman R.N. NURSING PROGRESS NOTES 0 (more content not included)... [facility] ED ORDER SHEET (CPOE ONLY)on 08-02-2024 ED ORDER SHEET (CPOE ONLY) Order Sheet Order Sheet [place] [address] [place] [address] [id number] 08/02/2024 Patient: BRANDIE KISER Sex: Female : 1935 Age: 88y MEASUREMENTS: Wt: 65.8 kg, Ht/Martínez: 62.0 in, BMI: 26.52 ALLERGIES: Penicillins, codeine MEDICATION/IV/DRIP/FLUID ORDERS Order Description Priority Entered Acknowledged Completed LAB ORDERS Order Description Priority Entered Acknowledged Collected Completed CBC w Diff Stat Stat 09:50 08/02/2024 09:51 08/02/2024 09:59 08/02/2024 Jon Agosto Lucas Eastep, D.O. R.N. R.N. CMP Stat Stat 09:50 08/02/2024 09:51 08/02/2024 09:59 08/02/2024 Jon Agosto Lucas Eastep, D.O. R.N. R.N. DIAGNOSTIC STUDY ORDERS Order Description Priority Entered Acknowledged Completed CT LT Tib/fib w Cont Stat Stat 09:50 08/02/2024 09:51 12:27 Denis Caballero D.O. 08/02/2024 08/02/2024 Jon Hankins R.N. R.NDavid 1 of 2 Order Sheet Reason for Study: Infection STAFF ORDERS Order Description Priority Entered Acknowledged Collected Completed IV Saline Lock 09:50 08/02/2024 09:51 08/02/2024 09:59 08/02/2024 Jon Agosto Lucas Eastep, D.O. R.N. R.NDavid [Electronically signed by Denis Caballero D.O. (08/02/2024 11:41 EST)] 2 of 2 [facility] ED PHYSICIAN CLINICAL REPORT on 08-02-2024 ED PHYSICIAN CLINICAL REPORT Narrative Physician Clinical Narrative [facility] [address] [place] [address] [id number] 08/02/2024 Patient: BRANDIE KISER Sex: Female : 1935 Age: 88y Measurements Wt: 65.8 kg, Ht/Martínez: 62.0 in, BMI: 26.52 Initial Vital Sign Measured Time BP MAP HR RR O2Sat ETCO2 Temp Pain GCS RTS 09:37 08/02/2024 159/91 114 82 16 94% RA 97.7 F 8 Time Seen: 09:46 08/02/2024. Arrived- By private vehicle. Historian- patient. HISTORY OF PRESENT ILLNESS Chief Complaint: LOWER EXTREMITY PAIN and SWELLING. This started 5 weeks. The patient has had redness and swelling. The patient has had difficulty walking. Patient denies an injury. Similar symptoms previously. Recent medical care: The patient was seen recently in the office. REVIEW OF SYSTEMS CVS: No chest pain. CONSTITUTIONAL: No fever. ENDO/HEME/LYMPH: No enlarged lymph nodes. MUSCULOSKELETAL: No neck pain or back pain. NEUROLOGICAL: No headache. EYES: No blurred vision. THROAT: No sore throat. GI: No abdominal pain, vomiting, diarrhea or black stools. SKIN: No skin rash. RESPIRATORY: No cough or difficulty breathing. 1 of 9 Narrative PAST HISTORY See nurses notes. Hypothyroidism Squamous cell carcinoma of leg Surgeries: Appendectomy Back Surgery Cardiac Catheterization: (Two stents placed.) Cholecystectomy Knee Surgery Medications: home medications unknown Allergies: codeine Penicillins SOCIAL HISTORY Alcohol use. Drug use. ADDITIONAL NOTES The nursing notes have been reviewed. PHYSICAL EXAM Vital Signs: Have been reviewed. Appearance: Alert. No acute distress. Eyes: Pupils equal, round and reactive to light. Eyes normal inspection. CVS: Normal heart rate and rhythm. Respiratory: No respiratory distress. Skin: (As described above). Extremities: Lower extremities exhibit normal ROM. (Left posterior calf has a 3 cm circular area of eschar. 2 of 9 Narrative There is some mild erythema inferiorly. There is no drainage noted. It is tender to palpation around the calf. Lymphangitic streaking.). Neuro: Oriented X 3. No sensory deficit. LABS, X-RAYS, AND EKG Laboratory Tests: CBC + DIFF Final LISETTE: 08/02/2024 09:50:00 EST MsgRcvd: 08/02/2024 10:09 EST Lab Test Result Reference Status Received Comments 08/02/2024 10:09 CBC-COMPLETE CBC + DIFF Final EST BLOOD COUNT 08/02/2024 10:09 WBC 7.0 x 10/UL 4.5 - 10.8 Final EST 5.38 x 10/UL 08/02/2024 10:09 RBC 4.10 - 5.30 Final Above high normal EST 08/02/2024 10:09 HEMOGLOBIN 15.0 g/dl 12.0 - 16.0 Final EST 08/02/2024 10:09 HEMATOCRIT 45.6 % 34.0 - 46.0 Final EST 08/02/2024 10:09 MCV 85 fl 80 - 99 Final EST 08/02/2024 10:09 MCH 28 pg 27 - 33 Final EST 08/02/2024 10:09 MCHC 33 X10 3 32 - 36 Final EST 08/02/2024 10:09 RDW/CV 14.2 % 12.0 - 15.6 Final EST 3 of 9 Narrative 08/02/2024 10:09 PLATELET 203 x10/UL 150 - 450 Final EST 08/02/2024 10:09 AUTOMATED MPV 7.7 fl 6.6 - 10.5 Final EST DIFFERENTIAL 08/02/2024 10:09 NEUT % 59.3 % 46.0 - 76.0 Final EST 08/02/2024 10:09 LYMPH % 28.3 % 20.0 - 45.0 Final EST 08/02/2024 10:09 MONOS % 7.2 % 0.0 - 10.0 Final EST 08/02/2024 10:09 EO % 4.6 % 0.0 - 7.0 Final EST 08/02/2024 10:09 BASO % 0.6 % 0.0 - 2.0 Final EST 08/02/2024 10:09 Lymph # 1.98 x10/UL 0.80 - 2.80 Final EST 08/02/2024 10:09 Neut # 4.14 x10/UL 1.50 - 7.10 Final EST 08/02/2024 10:09 [place] # 0.51 x10/UL 0.20 - 1.00 Final EST 08/02/2024 10:09 EO # 0.32 x10/UL 0.00 - 0.50 Final EST 08/02/2024 10:09 Baso # 0.04 x10/UL 0.00 - 0.10 Final EST 08/02/2024 10:09 MANUAL DIFF N/A New Order EST 08/02/2024 10:09 MORPHOLOGY N/A New Order EST 4 of 9 Narrative CMP with eGFR Final LISETTE: 08/02/2024 09:50:00 EST MsgRcvd: 08/02/2024 10:28 EST Lab Test Result Reference Status Received Comments COMPREHENSIVE 08/02/2024 CMP with eGFR Final METABOLIC 10:28 EST PANEL 08/02/2024 SODIUM 139 mmol/l 136 - 145 Final 10:28 EST 08/02/2024 POTASSIUM 3.9 mmol/L 3.5 - 5.1 Final 10:28 EST 08/02/2024 CHLORIDE 104 mmol/L 98 - 107 Final 10:28 EST 08/02/2024 CO2 26.7 mmol/L 21.0 - 32.0 Final 10:28 EST 108 mg/dl 08/02/2024 GLUCOSE Above high 74 - 106 Final 10:28 EST normal 08/02/2024 BUN 7 mg/dl 7 - 18 Final 10:28 EST 08/02/2024 CREATININE 0.70 mg/dl 0.55 - 1.02 Final 10:28 EST 08/02/2024 AST/SGOT 25 U/L 13 - 39 Final 10:28 EST 170 U/L 08/02/2024 ALK PHOS Above high 46 - 116 Final 10:28 EST normal 08/02/2024 CALCIUM 8.9 mg/dl 8.5 - 10.1 Final 10:28 EST 5 of 9 Narrative TOTAL 08/02/2024 6.6 g/dl 6.4 - 8.2 Final PROTEIN 10:28 EST 08/02/2024 ALBUMIN 3.5 g/dL 3.4 - 5.0 Final 10:28 ES (more content not included)... [facility] ED SUPER BILLon 08-02-2024 ED SUPER BILL [facility] [address] [place] [address] [phone] 08/02/2024 Patient: BRANDIE KISER Sex: Female : 1935 Age: 88y Item Professional Category Description Facility Code Code Quantity Fee Total Nurse/E/M EMERGENCY 334102 1 $0.00 $0.00 DEPARTMENT VISIT HIGH/URGENT SEVERITY (62139-74) Grand Total $0.00 Providers Denis Caballero D.O. Chief Complaint LOWER EXTREMITY PAIN and SWELLING. Principal Diagnosis Cellulitis of the left lower leg. ICD-10 Codes 1 of 2 Superbill L03.116: Cellulitis of left lower limb 2 of 2 Normal [facility] ED VISIT SUMMARYon ED VISIT SUMMARY Visit Overview Visit Overview [facility] [address] 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 ) ALLERGIES codeine Penicillins HOME MEDICATIONS Unknown 1 of 3 Visit Overview PAST MEDICAL HISTORY / PROBLEMS Hypothyroidism Immunizations: up-to-date See nurses notes Squamous cell carcinoma of leg PAST SURGICAL HISTORY Appendectomy Back Surgery Cardiac Catheterization. Two stents placed. Cholecystectomy Knee Surgery SOCIAL HISTORY Smoking status: No Alcohol use: No Drug use: No ED COURSE MEDICATIONS GIVEN IN EMERGENCY DEPARTMENT IV SITE INFORMATION INTAKE OUTPUT REASSESMENT (most recent) 09:45 08/02/24. Ambulatory to room. 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 Pt states treatment last five weeks and has been hurting since.). GENERAL / NEURO / PSYCH: Oriented X 4. Alert. Appears in no acute distress. ( Denies fever or chills.). EXTREMITIES: Extremity pulses are within normal limits. Extremities exhibit normal ROM. Neuro-vascular status intact to the extremity. No lower extremity edema. Normal gait. Left leg: tenderness of the posterior aspect of mid leg (Wound to calf, wound bed black. Approx. 2 cm in diameter. Minimal serous fluid to the area.). SKIN: Skin is warm and dry. 2 of 3 Visit Overview VITAL SIGNS First Vitals Last Vitals Temp 09:37 08/02/24 97.7 F Temp 11:49 08/02/24 BP 09:37 08/02/24 159/91 BP 11:49 08/02/24 140/73 HR 09:37 08/02/24 82 HR 11:49 08/02/24 81 RR 09:37 08/02/24 16 RR 11:49 08/02/24 14 O2 Sat 09:37 08/02/24 94% RA O2 Sat 11:49 08/02/24 94% RA Pain 09:37 08/02/24 8 Pain 11:49 08/02/24 7 ETCO2 09:37 08/02/24 ETCO2 11:49 08/02/24 GCS 09:37 08/02/24 GCS 11:49 08/02/24 RTS 09:37 08/02/24 RTS 11:49 08/02/24 PROCEDURES NURSING INTERVENTIONS LABS / STUDIES LABS / STUDIES ORDERED CBC w Diff CMP CT LT Tib/fib w Cont CLINICAL IMPRESSION CELLULITIS OF THE LEFT LOWER LEG 3 of 3 [facility] ED VITALS FLOW SHEETon 08-02 ED VITALS FLOW SHEET Vitals Vital Sign Flow Sheet [address] [place] [address] [id number] 08/02/2024 Patient: BRANDIE KISER Sex: Female : 1935 Age: 88y Measurements Wt: 65.8 kg, Ht/Martínez: 62.0 in, BMI: 26.52 Measured Time BP MAP HR RR O2Sat ETCO2 Temp Pain GCS RTS 11:49 08/02/2024 140/73 95 81 14 94% RA 7 09:37 08/02/2024 159/91 114 82 16 94% RA 97.7 F 8 1 of 1 [facility] BASIC METABOLIC PANELon 10-0 Anion gap [Moles/Vol] 1 mmol/L Low 8-12 [facility] Comment on above: Performed By: #### 4 [id number], [id number], [id number], [id number], [id number], [id number] #### [place] [address] [place], [place] [address] Calcium [Mass/Vol] 9.1 mg/dL Normal 8.4-10.4 [facility] Comment on above: Performed By: #### 4 [id number], [id number], [id number], [id number], [id number], [id number] #### [facility] [address] [place] [id number] Chloride [Moles/Vol] 108 mmol/L Normal 96-109 [facility] Comment on above: Performed By: #### 4 [id number], [id number], [id number], 68980733, 49038023, [id number] #### [address] [place], [place] [address] CO2 [Moles/Vol] 30 mmol/L Normal 22-30 [facility] Comment on above: Performed By: #### 4 [id number], [id number], 69905152, 02869053, 90576735, [id number] #### [facility] [address] [place] [address] [facility] Creatinine [Mass/Vol] 0.67 mg/dL Normal 0.52-1.04 [facility] Comment on above: Performed By: #### 4 [id number], [id number], 56958724, 34984784, 16674769, 37076386 #### [facility] [address] [place] [address] [facility] GLOMERULAR FILTRATION RATE ML/MIN/1.73 SQ M.PREDICTED 85.2 mL/min/1.73m*2 Normal >=60.0 [facility] Comment on above: Result Comment: eGFR calculation based on the Chronic Kidney Disease Epidemiology Collaboration (CKD-EPI) equation refit without adjustment for race. Categories in Chronic Kidney Disease (CKD) Category: GFR(mL/min/1.73m^2) Interpretation: G1* 90 or greater Normal or high G2* 60-89 Mild decrease G3a 45-59 Mild to moderate decrease G3b 30-44 Moderate to severe decrease G4 15-29 Severe decrease G5 14 or less Kidney failure *G1&G2: In the absence of evidence of kidney damage, neither GFR category G1 nor G2 fulfill the criteria for CKD Kidney Int Suppl.2013;3:1-150 Performed By: #### 4 [id number], [id number], [id number], 51746097, [id number], [id number] #### [place] [facility] [address] Glucose [Mass/Vol] 127 mg/dL High 65-100 [facility] Comment on above: Performed By: #### 4 [id number], 03935093, 65313262, 27855181, 40730152, [id number] #### [address] Potassium [Moles/Vol] 4.4 mmol/L Normal 3.6-5.1 [facility] Comment on above: Performed By: #### 4 [id number], [id number], 64132829, 89369490, 06949535, 06860441 #### [address] Sodium [Moles/Vol] 139 mmol/L Normal 135-147 [facility] Comment on above: Performed By: #### 4 8761240, 61781327, 54330174, 83668402, 53949602, 02988558 #### [address] Urea nitrogen [Mass/Vol] 8 mg/dL Normal 8-26 [facility] Comment on above: Performed By: #### 4 [id number], [id number], 78672078, 07943449, 91358071, [id number] #### [address] CBC AND DIFFERENTIALon 05-06 ABSOLUTE BASOPHIL 0.0 x10*3/uL Normal 0.0-0.1 [facility] Comment on above: Performed By: #### 4 [id number] #### [place] [address] [place] ABSOLUTE EOSINOPHIL 0.3 x10*3/uL Normal 0.1-0.3 [facility] Comment on above: Performed By: #### 4 [id number] #### [address] ABSOLUTE IMMATURE GRANULOCYTES 0.0 x10*3/uL Normal 0.0-0.1 [facility] Comment on above: Performed By: #### 4 [id number] #### [address] ABSOLUTE LYMPH 2.0 x10*3/uL Normal 1.2-3.3 [facility] Comment on above: Performed By: #### 4 [id number] #### [address] ABSOLUTE MONO 0.5 x10*3/uL Normal 0.2-0.6 [facility] Comment on above: Performed By: #### 4 [id number] #### [address] ABSOLUTE NEUTROPHIL 4.0 x10*3/uL Normal 2.4-6.6 [facility] Comment on above: Performed By: #### 4 [id number] #### [address] Basophils/100 WBC (Bld) 0.4 % Normal [facility] Comment on above: Performed By: #### 4 [id number] #### [address] Eosinophils/100 WBC (Bld) 4.4 % Normal [facility] Comment on above: Performed By: #### 4 [id number] #### [address] Erythrocyte distribution width (RBC) [Ratio] 14.6 % High 11.5-14.5 [facility] Comment on above: Performed By: #### 4 [id number] #### [address] Hematocrit (Bld) [Volume fraction] 48.3 % High 33.6-46.8 [facility] Comment on above: Performed By: #### 4 [id number] #### [address] Hemoglobin (Bld) [Mass/Vol] 14.8 g/dL Normal 11.7-15.8 [facility] Comment on above: Performed By: #### 4 [id number] #### [address] Immature granulocytes/100 WBC (Bld) 0.1 % Normal [facility] Comment on above: Performed By: #### 4 [id number] #### [address] Lymphocytes/100 WBC (Bld) 28.8 % Normal [facility] Comment on above: Performed By: #### 4 [id number] #### [address] MCH (RBC) [Entitic mass] 27.1 pg Low 27.5-32.3 [facility] Comment on above: Performed By: #### 4 [id number] #### [address] MCHC (RBC) [Mass/Vol] 30.6 g/dL Low 30.7-35.5 [facility] Comment on above: Performed By: #### 4 [id number] #### [address] MCV (RBC) [Entitic vol] 88.5 fL Normal 80.2-99 [facility] Comment on above: Performed By: #### 4 [id number] #### [address] Monocytes/100 WBC (Bld) 7.1 % Normal [facility] Comment on above: Performed By: #### 4 [id number] #### [address] Neutrophils/100 WBC (Bld) 59.2 % Normal [facility] Comment on above: Performed By: #### 4 [id number] #### [address] NUCLEATED RED BLOOD CELLS AUTO 0.0 % Normal 0.0-1.0 [facility] Comment on above: Performed By: #### 4 [id number] #### [address] PLATELET COUNT 164 x10*3/uL Normal 150-400 [facility] Comment on above: Performed By: #### 4 [id number] #### [address] RED BLOOD CELL COUNT 5.46 x10*6/uL High 3.60-5.20 [facility] Comment on above: Performed By: #### 4 [id number] #### [address] WHITE BLOOD CELLS 6.8 x10*3/uL Normal 4.3-10.3 [facility] Comment on above: Performed By: #### 4 [id number] #### [address] HEMOGLOBIN A1Con 05-06-2024 HbA1c (Bld) [Mass fraction] 5.9 % High 4.8-5.6 [facility] Comment on above: Order Comment: Perfo rmed at: - [facility] [id number] Recycling Worker: Brenton Boyle PhD, Phone: [phone] Result Comment: Pred iabetes: 5.7 - 6.4 Diabetes: >6.4 Glycemic control for adults with diabetes: <7.0 Performed By: #### 4 [id number] #### [facility] [address] [place] [address] HEPATIC FUNCTION PANELon Albumin [Mass/Vol] 4.0 g/dL Normal 3.5-5.0 [facility] Comment on above: Performed By: #### 4 [id number], 10688979, 89758442, 05440380, 95335566, 16336749 #### [address] ALK PHOS 130 U/L High 24-126 [facility] Comment on above: Performed By: #### 4 [id number], 99670081, 70179470, 23919227, 97593071, 79747944 #### [address] ALT [Catalytic activity/Vol] 28 U/L Normal 4-35 [facility] Comment on above: Performed By: #### 4 2088055, 13465974, 79623431, 45609412, 30725337, 69094137 #### [facility] [address] [place] [address] AST [Catalytic activity/Vol] 37 U/L Normal 3-47 [facility] Comment on above: Performed By: #### 4 [id number], 42777691, 22201772, 69753933, 53679169, 04574730 #### [address] Bilirubin [Mass/Vol] 1.3 mg/dL Normal 0.2-1.6 [facility] Comment on above: Performed By: #### 4 0685181, 76791697, 17912509, 03766399, 92753265, 51207070 #### [address] Bilirubin.indirect [Mass/Vol] 0.4 mg/dL Normal <=0.5 [facility] Comment on above: Performed By: #### 4 [id number], 63983099, 43013866, 68556959, 50703557, 77977303 #### [address] Protein [Mass/Vol] 6.6 g/dL Normal 6.3-8.2 [facility] Comment on above: Performed By: #### 4 6269714, 44286403, 76471489, 22021418, 24890149, 62492576 #### [address] LIPID PANELon 05-06-2024 Cholesterol [Mass/Vol] 124 mg/dL Normal <=200 [facility] Comment on above: Performed By: #### 4 1327548, 13086081, 77299447, 65481257, 96060975, 70480938 #### [address] Cholesterol in HDL [Mass/Vol] 57.0 mg/dL Normal 40.0-59.9 [facility] Comment on above: Performed By: #### 4 1750108, 34587311, 39465388, 10639831, 69197560, 76342407 #### [address] LDL CHOLESTEROL CALCULATED 34 mg/dL Normal <=100 [facility] Comment on above: Result Comment: LDL REFERENCE RANGE: Optimal <100 mg/dl Near Optimal 100-129 mg/dL Borderline High 130-159 mg/dL High 160-189 mg/dL Very High >=190 mg/dL Performed By: #### 4 [id number], 83102950, 26036633, 43014456, 96009867, 47435472 #### [address] Triglyceride [Mass/Vol] 165 mg/dL High <=150 [facility] Comment on above: Performed By: #### 4 5511170, 50826108, 66419648, 61974379, 68047231, 47157350 #### [address] VLDL CHOLESTEROL NAYA 33 mg/dL Normal <=41 [facility] Comment on above: Performed By: #### 4 5116379, 29207906, 21591417, 97973245, 53944098, 19051651 #### [address] TSHon 05-06-2024 TSH 2.270 uIU/mL Normal 0.465-4.68 0 [facility] Comment on above: Performed By: #### 4 0901285, 71821951, 15890048, 40919369, 85449546, 44935488 #### [address] VITAMIN B12on 05-06-2024 Cobalamin (Vitamin B12) [Mass/Vol] 249 pg/mL Normal 239-931 [facility] Comment on above: Performed By: #### 4 [id number], 27176207, 85844937, 99257979, 22967120, 38475698 #### [address] VITAMIN D 25 HYDROXYon 05-06 VITAMIN D 25 HYDROXY 25.5 ng/mL Normal [facility] Comment on above: Result Comment: Refe nate Range: Deficiency: <20 ng/mL Insufficiency: 21-29 ng/mL Optimal Level: >=30 ng/mL Possible Toxicity: >80 ng/mL 80 ng/mL is the lowest reported level associated with toxicity in patients without primary hyperthyroidism who have normal renal function. Performed By: #### 4 [id number], 22900408, 31947220, 91858600, 45729585, 22660796 #### [place] [address] ECG 12 lead - CLINIC PERFORM EDon 12-26-2023 [facility] Absolute lymphocyte countOrd ered By: Pat Hansen on 11-29-2023 Lymphocytes Auto (Unsp spec) [#/Vol] 2.25 10*3/uL 0.83-4.51 [facility] Automated lymphocyte count a s percentage of total leukocytesOrdered By: Pat Hansen on 11-29-2023 Lymphocytes/100 WBC Auto (Unsp spec) 28.5 % 19-41 [facility] Basophil percentageOrdered B y: Pat Hansen on 11-29-2023 Basophils/100 WBC (Bld) 0.8 % 0-1 [facility] Chloride [Moles/Vol] 109 mmol/L 98-107 [facility] Eosinophils/100 WBC (Bld) 4.9 % 0-5 [facility] Glucose [Mass/Vol] 110 mg/dL 74-106 [facility] Comment on above: Fasting Glucose resu lt from 100 to 125 mg/dL suggests IMPAIRED HOMEOSTASIS per A.D.A. criteria. Hemoglobin (Bld) [Mass/Vol] 13.3 g/dL 12.0-15.0 [facility] Monocytes/100 WBC (Bld) 7.6 % 0-10 [facility] Neutrophils (Bld) [#/Vol] 4.6 10*3/uL 2.0-7.7 [facility] Neutrophils/100 WBC (Bld) 57.8 % 47-70 [facility] Potassium [Moles/Vol] 3.6 mmol/L 3.5-5.1 [facility] Sodium [Moles/Vol] 141 mmol/L 136-145 [facility] WBC (Bld) [#/Vol] 7.9 10*3/uL 4.4-11.0 [facility] Determination of erythrocyte mean corpuscular volume (MCV)Ordered By: Pat Hansen on 11-29-2023 MCV (RBC) [Entitic vol] 90.6 fL 81-99 [facility] Erythrocyte distribution wid th ratioOrdered By: Pat Hansen on 11-29-2023 Erythrocyte distribution width (RBC) [Ratio] 13.6 % 11.6-14.6 [facility] Erythrocyte distribution wid th standard deviationOrdered By: Pat Hansen on 11-29-2023 Erythrocyte distribution width (RBC) [Entitic vol] 45.4 fL 35.1-43.9 [facility] Hematocrit Auto (Bld) [Volum e fraction]Ordered By: Pat Hansen on 11-29-2023 Hematocrit (Bld) [Volume fraction] 43.4 % 37-47 [facility] Immature granulocytes/100 WB C Auto (Bld)Ordered By: Pat Hansen on 11-29-2023 Immature granulocytes/100 WBC (Bld) 0.400 % 0.0-0.9 [facility] Comment on above: IG% - Immature Granu locytes (promyelocytes, myelocytes and metamyelocytes) > 1% indicates that a LEFT SHIFT is Present. Laboratory - Chemistry and C hemistry - challengeOrdered By: Pat Hansen on 11-29-2023 CO2 [Moles/Vol] 28.0 mmol/L 21.0-32.0 [facility] Natriuretic peptide B (Bld) [Mass/Vol] 27.3 pg/mL 0-100 [facility] Urea nitrogen/Creatinine [Mass ratio] 7.8 mg/mg 10-20 [facility] Laboratory - Hematology and Cell countsOrdered By: Pat Hansen on 11-29-2023 MCH (RBC) [Entitic mass] 27.8 pg 27.0-32.0 [facility] MCHC (RBC) [Mass/Vol] 30.6 g/dL 32-36 [facility] Nucleated RBC/100 WBC (Bld) [Ratio] 0 % 0-5 [facility] Platelet mean volume (Bld) [Entitic vol] 10.3 fL 6.2-12.0 [facility] Platelets (Bld) [#/Vol] 246 10*3/uL 150-450 [facility] No Panel InformationOrdered By: Pat Hansen on 11-29-2023 Estimated GFR (MDRD) Amer 92 mL/min >60 [facility] Comment on above: GFR Calc Estimated GFR (MDRD) Non-Af Amer 76 mL/min >60 [facility] Comment on above: Non- GFR Calc RBC Auto (Bld) [#/Vol]Ordere d By: Pat Hansen on 11-29-2023 RBC (Bld) [#/Vol] 4.79 10*6/uL 4.2-5.4 [facility] Serum or plasma calcium miguel angel urement (mass/volume)Ordered By: Pat Hansen on 11-29-2023 Calcium [Mass/Vol] 9.0 mg/dL 8.5-10.1 [facility] Serum or plasma creatinine m easurement (mass/volume)Ordered By: Pat Hansen on 11-29-2023 Creatinine [Mass/Vol] 0.76 mg/dL 0.55-1.02 [facility] Comment on above: The validity of the calculated GFR & GFRAA in patients over 70 years has not been determined. Clinical correlation is essential. Serum or plasma urea nitroge n measurement (mass/volume)Ordered By: Pat Hansen on 11-29-2023 Urea nitrogen [Mass/Vol] 6 mg/dL 7-18 [facility] Thin prep Papanicolaou smear with manual screeningOrdered By: Pat Hansen on 11-29-2023 Thin prep Papanicolaou smear with manual screening 4 12-10 [facility] 3D MAMM BILAT DIAGNOSTICon 0 11-21-2023 3D MAMM BILAT DIAGNOSTIC [place] [address] Patient: BRANDIE KISER Phone#: : 1935 Age: 88 Gender: F Pt. Type: Out Account: [id number] Location: [facility] Ordering: TOSHA XAVIER Exam Date: 11/21/2023/10:11 Family Phys: Charge Code: 529011 Physician: [place] Order #: [id number] Dose#: PROCEDURE: BILATERAL DIAGNOSTIC BREAST TOMOSYNTHESIS MAMMOGRAM WITH CAD COMPARISON: [place], 3D BILAT DIAGNOSTIC, 02/04/2023, 10:01. INDICATIONS: Breast lump BREAST COMPOSITION: Scattered areas fibroglandular density. FINDINGS: DIAGNOSTIC CATEGORY 0--INCOMPLETE: NEED ADDITIONAL IMAGING EVALUATION. RIGHT BREAST: No significant suspicious finding. No significant change has occurred. LEFT BREAST: No significant suspicious finding. No significant change has occurred. No mammographic finding is seen that correlates with the reporting palpable finding or symptom. RECOMMENDATIONS: ULTRASOUND: LEFT BREAST --We will perform a same day ultrasound and provide an additional report. PLEASE NOTE: A NORMAL MAMMOGRAM DOES NOT EXCLUDE THE POSSIBILITY OF BREAST CANCER. A CLINICALLY SUSPICIOUS PALPABLE LUMP SHOULD BE BIOPSIED. THIS FACILITY UTILIZES A REMINDER SYSTEM TO ENSURE THAT ALL PATIENTS RECEIVE REMINDER LETTERS FOR APPOINTMENTS. THIS INCLUDES REMINDERS FOR ROUTINE MAMMOGRAMS, DIAGNOSITC MAMMOGRAMS, OR OTHER BREAST IMAGING INTERVENTIONS WHEN APPROPRIATE. THIS PATIENT WILL BE PLACED IN THE APPROPRIATE REMINDER SYSTEM. Dictated by: Maira Guerra MD on 11/21/2023 at 13:36 Approved by: Maira Guerra MD on 11/21/2023 at 13:38 [facility] US BREAST LT UNILATERAL COMP LETEon 11-21-2023 US BREAST LT UNILATERAL COMPLETE [place] [address] Patient: BRANDIE KISER Phone#: : [phone] Age: 88 Gender: F Pt. Type: Out Account: [id number] Location: [facility] Ordering: TOSHA XAVIER Exam Date: 11/21/2023/12:03 Family Phys: Charge Code: 894806 Physician: [place] Order #: [id number] Dose#: PROCEDURE: ULTRASOUND BREAST LT COMPARISON: [facility], , BREAST LT COMPLETE, 02/04/2023, 11:15. INDICATIONS: Left breast fullness TECHNIQUE: Breast ultrasound was performed, with evaluation focusing on all four quadrants. FINDINGS: DIAGNOSTIC CATEGORY 1--NEGATIVE: LEFT BREAST: No significant suspicious finding. RECOMMENDATIONS: ROUTINE MAMMOGRAM AND CLINICAL EVALUATION IN 12 MONTHS. PLEASE NOTE: A NORMAL MAMMOGRAM DOES NOT EXCLUDE THE POSSIBILITY OF BREAST CANCER. A CLINICALLY SUSPICIOUS PALPABLE LUMP SHOULD BE BIOPSIED. Dictated by: Maira Guerra MD on 11/21/2023 at 13:38 Approved by: Maira Guerra MD on 11/21/2023 at 13:41 [facility] Absolute lymphocyte countOrd ered By: Pat Hansen on 09-09-2023 Lymphocytes Auto (Unsp spec) [#/Vol] 2.46 10*3/uL 0.83-4.51 [facility] Automated lymphocyte count a s percentage of total leukocytesOrdered By: Pat Hansen on 09-09-2023 Lymphocytes/100 WBC Auto (Unsp spec) 31.4 % 19-41 [facility] Basophil percentageOrdered B y: Pat Hansen on 09-09-2023 Basophils/100 WBC (Bld) 0.8 % 0-1 [facility] Chloride [Moles/Vol] 108 mmol/L 98-107 [facility] Eosinophils/100 WBC (Bld) 1.9 % 0-5 [facility] Glucose [Mass/Vol] 101 mg/dL 74-106 [facility] Comment on above: Fasting Glucose resu lt from 100 to 125 mg/dL suggests IMPAIRED HOMEOSTASIS per A.D.A. criteria. Hemoglobin (Bld) [Mass/Vol] 14.6 g/dL 12.0-15.0 [facility] Monocytes/100 WBC (Bld) 8.7 % 0-10 [facility] Neutrophils (Bld) [#/Vol] 4.4 10*3/uL 2.0-7.7 [facility] Neutrophils/100 WBC (Bld) 56.6 % 47-70 [facility] Potassium [Moles/Vol] 4.0 mmol/L 3.5-5.1 [facility] Sodium [Moles/Vol] 142 mmol/L 136-145 [facility] WBC (Bld) [#/Vol] 7.8 10*3/uL 4.4-11.0 [facility] Determination of erythrocyte mean corpuscular volume (MCV)Ordered By: Pat Hansen on 09-09-2023 MCV (RBC) [Entitic vol] 86.7 fL 81-99 [facility] Erythrocyte distribution wid th ratioOrdered By: Pat Hansen on 09-09-2023 Erythrocyte distribution width (RBC) [Ratio] 15.0 % 11.6-14.6 [facility] Erythrocyte distribution wid th standard deviationOrdered By: Pat Hansen on 09-09-2023 Erythrocyte distribution width (RBC) [Entitic vol] 47.8 fL 35.1-43.9 [facility] Hematocrit Auto (Bld) [Volum e fraction]Ordered By: Pat Hansen on 09-09-2023 Hematocrit (Bld) [Volume fraction] 47.5 % 37-47 [facility] Immature granulocytes/100 WB C Auto (Bld)Ordered By: Pat Hansen on 09-09-2023 Immature granulocytes/100 WBC (Bld) 0.600 % 0.0-0.9 [facility] Comment on above: IG% - Immature Granu locytes (promyelocytes, myelocytes and metamyelocytes) > 1% indicates that a LEFT SHIFT is Present. Laboratory - Chemistry and C hemistry - challengeOrdered By: Pat Hansen on 09-09-2023 CO2 [Moles/Vol] 29.0 mmol/L 21.0-32.0 [facility] Natriuretic peptide B (Bld) [Mass/Vol] 32.3 pg/mL 0-100 [facility] Urea nitrogen/Creatinine [Mass ratio] 11.0 mg/mg 10-20 [facility] Laboratory - Hematology and Cell countsOrdered By: Pat Hansen on 09-09-2023 MCH (RBC) [Entitic mass] 26.6 pg 27.0-32.0 [facility] MCHC (RBC) [Mass/Vol] 30.7 g/dL 32-36 [facility] Nucleated RBC/100 WBC (Bld) [Ratio] 0 % 0-5 [facility] Platelet mean volume (Bld) [Entitic vol] 9.5 fL 6.2-12.0 [facility] Platelets (Bld) [#/Vol] 192 10*3/uL 150-450 [facility] No Panel InformationOrdered By: Pat Hansen on 09-09-2023 Estimated GFR (MDRD) Amer 97 mL/min >60 [facility] Comment on above: GFR Calc Estimated GFR (MDRD) Non-Af Amer 80 mL/min >60 [facility] Comment on above: Non- GFR Calc Free Triiodothyronine (T3) pg/dL 2.2 pg/mL 2.18-3.98 [facility] Vitamin D 25-Hydroxy 54.9 ng/mL [facility] Comment on above: Vitamin D 25(OH) Sta tus Range Deficiency <20 ng/mL (50nmol/L) Insufficiency 20 - 30 ng/mL (50 - 75 nmol/L) Sufficiency 30 - 100 ng/mL (75 - 250 nmol/L) Toxicity >100 ng/mL (>250 nmol/L) RBC Auto (Bld) [#/Vol]Ordere d By: Pat Hansen on 09-09-2023 RBC (Bld) [#/Vol] 5.48 10*6/uL 4.2-5.4 [facility] Serum or plasma calcium miguel angel urement (mass/volume)Ordered By: Pat Hansen on 09-09-2023 Calcium [Mass/Vol] 9.1 mg/dL 8.5-10.1 [facility] Serum or plasma creatinine m easurement (mass/volume)Ordered By: Pat Hansen on 09-09-2023 Creatinine [Mass/Vol] 0.73 mg/dL 0.55-1.02 [facility] Comment on above: The validity of the calculated GFR & GFRAA in patients over 70 years has not been determined. Clinical correlation is essential. Serum or plasma thyroid stim ulating hormone (TSH) measurement (units/volume)Ordered By: Pat Hansen on 09-09-2023 TSH Qn 1.76 uIU/mL 0.358-3.74 [facility] Serum or plasma urea nitroge n measurement (mass/volume)Ordered By: Pat Hansen on 09-09-2023 Urea nitrogen [Mass/Vol] 8 mg/dL 7-18 [facility] Thin prep Papanicolaou smear with manual screeningOrdered By: Pat Hansen on 09-09-2023 Thin prep Papanicolaou smear with manual screening 5 5-15 [facility] Thin prep Papanicolaou smear with manual screening 0.99 ng/dL 0.76-1.46 [facility] Absolute lymphocyte countOrd ered By: Adriana Dee on 2023 Lymphocytes Auto (Unsp spec) [#/Vol] 3.05 10*3/uL 0.83-4.51 [facility] Automated lymphocyte count a s percentage of total leukocytesOrdered By: Adriana Dee on 2023 Lymphocytes/100 WBC Auto (Unsp spec) 26.1 % 19-41 [facility] Basophil percentageOrdered B y: Adriana Dee on 2023 Basophils/100 WBC (Bld) 0.3 % 0-1 [facility] Chloride [Moles/Vol] 106 mmol/L 98-107 [facility] Eosinophils/100 WBC (Bld) 0.9 % 0-5 [facility] Glucose [Mass/Vol] 102 mg/dL 74-106 [facility] Comment on above: Fasting Glucose resu lt from 100 to 125 mg/dL suggests IMPAIRED HOMEOSTASIS per A.D.A. criteria. Hemoglobin (Bld) [Mass/Vol] 15.1 g/dL 12.0-15.0 [facility] Monocytes/100 WBC (Bld) 6.7 % 0-10 [facility] Neutrophils (Bld) [#/Vol] 7.6 10*3/uL 2.0-7.7 [facility] Neutrophils/100 WBC (Bld) 65.0 % 47-70 [facility] Potassium [Moles/Vol] 3.8 mmol/L 3.5-5.1 [facility] Sodium [Moles/Vol] 139 mmol/L 136-145 [facility] WBC (Bld) [#/Vol] 11.7 10*3/uL 4.4-11.0 [facility] Determination of erythrocyte mean corpuscular volume (MCV)Ordered By: Adriana Dee on 2023 MCV (RBC) [Entitic vol] 86.5 fL 81-99 [facility] Erythrocyte distribution wid th ratioOrdered By: Adriana Dee on 2023 Erythrocyte distribution width (RBC) [Ratio] 14.3 % 11.6-14.6 [facility] Erythrocyte distribution wid th standard deviationOrdered By: Adriana Dee on 2023 Erythrocyte distribution width (RBC) [Entitic vol] 45.5 fL 35.1-43.9 [facility] Hematocrit Auto (Bld) [Volum e fraction]Ordered By: Adriana Dee on 2023 Hematocrit (Bld) [Volume fraction] 48.7 % 37-47 [facility] Immature granulocytes/100 WB C Auto (Bld)Ordered By: Adriana Dee on 2023 Immature granulocytes/100 WBC (Bld) 1.000 % 0.0-0.9 [facility] Comment on above: IG% - Immature Granu locytes (promyelocytes, myelocytes and metamyelocytes) > 1% indicates that a LEFT SHIFT is Present. Laboratory - Chemistry and C hemistry - challengeOrdered By: Adriana Dee on 2023 CO2 [Moles/Vol] 28.0 mmol/L 21.0-32.0 [facility] Urea nitrogen/Creatinine [Mass ratio] 18.8 mg/mg 10-20 [facility] Laboratory - Hematology and Cell countsOrdered By: Adriana Dee on 2023 MCH (RBC) [Entitic mass] 26.8 pg 27.0-32.0 [facility] MCHC (RBC) [Mass/Vol] 31.0 g/dL 32-36 [facility] Nucleated RBC/100 WBC (Bld) [Ratio] 0 % 0-5 [facility] Platelets (Bld) [#/Vol] 193 10*3/uL 150-450 [facility] No Panel InformationOrdered By: Adriana Dee on 2023 Estimated Creatinine Clearance Calc 44.20 ml/min [facility] Estimated GFR (MDRD) Amer 88 mL/min >60 [facility] Comment on above: GFR Calc Estimated GFR (MDRD) Non-Af Amer 72 mL/min >60 [facility] Comment on above: Non- GFR Calc Platelet mean volume Gilbert-Ec ker (Bld) [Entitic vol]Ordered By: Adriana Dee on 2023 Platelet mean volume (Bld) [Entitic vol] 9.6 fL 6.2-12.0 [facility] RBC Auto (Bld) [#/Vol]Ordere d By: Adriana Dee on 2023 RBC (Bld) [#/Vol] 5.63 10*6/uL 4.2-5.4 [facility] Serum or plasma calcium miguel angel urement (mass/volume)Ordered By: Adriana Dee on 2023 Calcium [Mass/Vol] 8.7 mg/dL 8.5-10.1 [facility] Serum or plasma cardiac trop onin I panel by high sensitivity methodOrdered By: Adriana Dee on 2023 Tropinin I.cardiac panel High sensitivity method 8 pg/mL 3.0-54.0 [facility] Comment on above: Please Note: New Randi t Units and Gender Specific Reference Ranges. For more information see Policy Stat Procedure [place] High Sensitivity Troponin (TNIH) and attachments. Serum or plasma creatinine m easurement (mass/volume)Ordered By: Adriana Dee on 2023 Creatinine [Mass/Vol] 0.80 mg/dL 0.55-1.02 [facility] Comment on above: The validity of the calculated GFR & GFRAA in patients over 70 years has not been determined. Clinical correlation is essential. Serum or plasma urea nitroge n measurement (mass/volume)Ordered By: Adriana Dee on 2023 Urea nitrogen [Mass/Vol] 15 mg/dL 7-18 [facility] Thin prep Papanicolaou smear with manual screeningOrdered By: Adriana Dee on 2023 Thin prep Papanicolaou smear with manual screening 5 5-15 [facility] Absolute lymphocyte countOrd ered By: Rolanda Pavon on 08-12-2023 Lymphocytes Auto (Unsp spec) [#/Vol] 2.01 10*3/uL 0.83-4.51 [facility] Basophil percentageOrdered B y: Rolanda Pavon on 08-12-2023 Basophils/100 WBC (Bld) 0.3 % 0-1 [facility] Chloride [Moles/Vol] 106 mmol/L 98-107 [facility] Eosinophils/100 WBC (Bld) 0.1 % 0-5 [facility] Glucose [Mass/Vol] 107 mg/dL 74-106 [facility] Comment on above: Fasting Glucose resu lt from 100 to 125 mg/dL suggests IMPAIRED HOMEOSTASIS per A.D.A. criteria. Neutrophils (Bld) [#/Vol] 8.7 10*3/uL 2.0-7.7 [facility] Neutrophils/100 WBC (Bld) 76.6 % 47-70 [facility] Potassium [Moles/Vol] 4.1 mmol/L 3.5-5.1 [facility] Sodium [Moles/Vol] 140 mmol/L 136-145 [facility] WBC (Bld) [#/Vol] 11.4 10*3/uL 4.4-11.0 [facility] Blood erythrocytes count (nu mber/volume)Ordered By: Rolanda Pavon on 08-12-2023 RBC (Bld) [#/Vol] 5.67 10*6/uL 4.2-5.4 [facility] Blood hemoglobin measurement (mass/volume)Ordered By: Rolanda Pavon on 08-12-2023 Hemoglobin (Bld) [Mass/Vol] 15.3 g/dL 12.0-15.0 [facility] Blood lymphocytes/100 leukoc ytesOrdered By: Rolanda Pavon on 08-12-2023 Lymphocytes/100 WBC (Bld) 17.7 % 19-41 [facility] Blood monocytes/100 leukocyt esOrdered By: Rolanda Pavon on 08-12-2023 Monocytes/100 WBC (Bld) 4.8 % 0-10 [facility] Blood platelet mean volumeOr dered By: Rolanda Pavon on 08-12-2023 Platelet mean volume (Bld) [Entitic vol] 9.8 fL 6.2-12.0 [facility] Determination of erythrocyte mean corpuscular volume (MCV)Ordered By: Rolanda Pavon on 08-12-2023 MCV (RBC) [Entitic vol] 84.8 fL 81-99 [facility] Hematocrit Auto (Bld) [Volum e fraction]Ordered By: Rolanda Pavon on 08-12-2023 Hematocrit (Bld) [Volume fraction] 48.1 % 37-47 [facility] Laboratory - Chemistry and C hemistry - challengeOrdered By: Rolanda Pavon on 08-12-2023 CO2 [Moles/Vol] 27.0 mmol/L 21.0-32.0 [facility] Urea nitrogen/Creatinine [Mass ratio] 16.0 mg/mg 10-20 [facility] Laboratory - Hematology and Cell countsOrdered By: Rolanda Pavon on 08-12-2023 Erythrocyte distribution width (RBC) [Entitic vol] 43.1 fL 35.1-43.9 [facility] Erythrocyte distribution width (RBC) [Ratio] 13.9 % 11.6-14.6 [facility] Immature granulocytes/100 WBC (Bld) 0.500 % 0.0-0.9 [facility] Comment on above: IG% - Immature Granu locytes (promyelocytes, myelocytes and metamyelocytes) > 1% indicates that a LEFT SHIFT is Present. MCH (RBC) [Entitic mass] 27.0 pg 27.0-32.0 [facility] Nucleated RBC/100 WBC (Bld) [Ratio] 0 % 0-5 [facility] MCHC Auto (RBC) [Mass/Vol]Or dered By: Rolanda Pavon on 08-12-2023 MCHC (RBC) [Mass/Vol] 31.8 g/dL 32-36 [facility] No Panel InformationOrdered By: Rolanda Pavon on 08-12-2023 Troponin I High Sensitivity 6 pg/mL 3.0-54.0 [facility] Comment on above: Please Note: New Randi t Units and Gender Specific Reference Ranges. For more information see Policy Stat Procedure [place] High Sensitivity Troponin (TNIH) and attachments. D-Dimer Quantitative (PE/DVT) 0.61 FEU/ug/m 0.27-0.49 [facility] Comment on above: D-Dimer ELEVATED (>0 .49): Additional studies and clinicalassessments are indicated to conclude diagnosis of:Deep Vein Thrombosis (DVT) or Pulmonary Embolism (PE)CRITICAL VALUE VERIFIED. CALLED TO Wibiya08/12/23 Selina Fragoso.RESULTS READ BACK BY SAME . Estimated Creatinine Clearance Calc 43.89 ml/min [facility] Estimated GFR (MDRD) Amer 104 mL/min >60 [facility] Comment on above: GFR Calc Estimated GFR (MDRD) Non-Af Amer 86 mL/min >60 [facility] Comment on above: Non- GFR Calc Platelets bldOrdered By: Rebecca Pavon on 08-12-2023 Platelets (Bld) [#/Vol] 211 10*3/uL 150-450 [facility] Serum or plasma calcium miguel angel urement (mass/volume)Ordered By: Rolanda Pavon on 08-12-2023 Calcium [Mass/Vol] 9.1 mg/dL 8.5-10.1 [facility] Serum or plasma creatinine m easurement (mass/volume)Ordered By: Rolanda Pavon on 08-12-2023 Creatinine [Mass/Vol] 0.69 mg/dL 0.55-1.02 [facility] Comment on above: The validity of the calculated GFR & GFRAA in patients over 70 years has not been determined. Clinical correlation is essential. Serum or plasma urea nitroge n measurement (mass/volume)Ordered By: Rolanda Pavon on 08-12-2023 Urea nitrogen [Mass/Vol] 11 mg/dL 7-18 [facility] Thin prep Papanicolaou smear with manual screeningOrdered By: Rolanda Pavon on 08-12-2023 Thin prep Papanicolaou smear with manual screening 7 5-15 [facility] Absolute lymphocyte countOrd ered By: Olinda Kramer on 04-08-2023 Lymphocytes Auto (Unsp spec) [#/Vol] 2.33 10*3/uL 0.83-4.51 [facility] Basophil percentageOrdered B y: Olinda Kramer on 04-08-2023 Basophils/100 WBC (Bld) 0.2 % 0-1 [facility] Chloride [Moles/Vol] 108 mmol/L 98-107 [facility] Eosinophils/100 WBC (Bld) 1.5 % 0-5 [facility] Glucose [Mass/Vol] 98 mg/dL 74-106 [facility] Neutrophils (Bld) [#/Vol] 6.4 10*3/uL 2.0-7.7 [facility] Neutrophils/100 WBC (Bld) 68.0 % 47-70 [facility] Potassium [Moles/Vol] 4.0 mmol/L 3.5-5.1 [facility] Sodium [Moles/Vol] 139 mmol/L 136-145 [facility] WBC (Bld) [#/Vol] 9.4 10*3/uL 4.4-11.0 [facility] Blood erythrocytes count (nu mber/volume)Ordered By: Olinda Kramer on 04-08-2023 RBC (Bld) [#/Vol] 4.67 10*6/uL 4.2-5.4 [facility] Blood hemoglobin measurement (mass/volume)Ordered By: Olinda Kramer on 04-08-2023 Hemoglobin (Bld) [Mass/Vol] 12.9 g/dL 12.0-15.0 [facility] Blood lymphocytes/100 leukoc ytesOrdered By: Olinda Kramer on 04-08-2023 Lymphocytes/100 WBC (Bld) 24.9 % 19-41 [facility] Blood monocytes/100 leukocyt esOrdered By: Olinda Kramer on 04-08-2023 Monocytes/100 WBC (Bld) 4.7 % 0-10 [facility] Blood platelet mean volumeOr dered By: Olinda Kramer on 04-08-2023 Platelet mean volume (Bld) [Entitic vol] 9.5 fL 6.2-12.0 [facility] Determination of erythrocyte mean corpuscular volume (MCV)Ordered By: Olinda Kramer on 04-08-2023 MCV (RBC) [Entitic vol] 87.6 fL 81-99 [facility] Hematocrit Auto (Bld) [Volum e fraction]Ordered By: Olinda Kramer on 04-08-2023 Hematocrit (Bld) [Volume fraction] 40.9 % 37-47 [facility] INR in Blood by Coagulation assayOrdered By: Olinda Kramer on 04-08-2023 INR Coag (Bld) [Relative time] 1.0 {INR} [facility] Laboratory - Chemistry and C hemistry - challengeOrdered By: Olinda Kramer on 04-08-2023 CO2 [Moles/Vol] 25.0 mmol/L 21.0-32.0 [facility] Urea nitrogen/Creatinine [Mass ratio] 13.7 mg/mg 10-20 [facility] - CoagulationOrde red By: Olinda Kramer on 04-08-2023 aPTT Coag (Bld) [Time] 26.3 s 24.1-36.2 [facility] PT Coag (PPP) [Time] 13.0 s 11.7-14.9 [facility] - Hematology and Cell countsOrdered By: Olinda Kramer on 04-08-2023 Erythrocyte distribution width (RBC) [Entitic vol] 43.8 fL 35.1-43.9 [facility] Erythrocyte distribution width (RBC) [Ratio] 13.6 % 11.6-14.6 [facility] Immature granulocytes/100 WBC (Bld) 0.700 % 0.0-0.9 [facility] Comment on above: IG% - Immature Granu locytes (promyelocytes, myelocytes and metamyelocytes) > 1% indicates that a LEFT SHIFT is Present. MCH (RBC) [Entitic mass] 27.6 pg 27.0-32.0 [facility] Nucleated RBC/100 WBC (Bld) [Ratio] 0 % 0-5 [facility] MCHC Auto (RBC) [Mass/Vol]Or dered By: Olinda Kramer on 04-08-2023 MCHC (RBC) [Mass/Vol] 31.5 g/dL 32-36 [facility] No Panel InformationOrdered By: Olinda Kramer on 04-08-2023 Estimated Creatinine Clearance Calc 32.53 ml/min [facility] Estimated GFR (MDRD) Amer 97 mL/min >60 [facility] Comment on above: GFR Calc Estimated GFR (MDRD) Non-Af Amer 81 mL/min >60 [facility] Comment on above: Non- GFR Calc Platelets bldOrdered By: Swati Kramer on 04-08-2023 Platelets (Bld) [#/Vol] 241 10*3/uL 150-450 [facility] Serum or plasma calcium miguel angel urement (mass/volume)Ordered By: Olinda Kramer on 04-08-2023 Calcium [Mass/Vol] 8.6 mg/dL 8.5-10.1 [facility] Serum or plasma creatinine m easurement (mass/volume)Ordered By: Olinda Kramer on 04-08-2023 Creatinine [Mass/Vol] 0.73 mg/dL 0.55-1.02 [facility] Comment on above: The validity of the calculated GFR & GFRAA in patients over 70 years has not been determined. Clinical correlation is essential. Serum or plasma urea nitroge n measurement (mass/volume)Ordered By: Olinda Kramer on 04-08-2023 Urea nitrogen [Mass/Vol] 10 mg/dL 7-18 [facility] Thin prep Papanicolaou smear with manual screeningOrdered By: Olinda Kramer on 04-08-2023 Thin prep Papanicolaou smear with manual screening 6 5-15 [facility] Absolute lymphocyte countOrd ered By: Denis Caballero on 04-07-2023 Lymphocytes Auto (Unsp spec) [#/Vol] 2.72 10*3/uL 0.83-4.51 [facility] Basophil percentageOrdered B y: Denis Caballero on 04-07-2023 Basophils/100 WBC (Bld) 0.5 % 0-1 [facility] Bilirubin [Mass/Vol] 0.60 mg/dL 0.20-1.00 [facility] Comment on above: For patients on eltr ombopag therapy, use of Dimension [place] TBIL is not recommended. Chloride [Moles/Vol] 108 mmol/L 98-107 [facility] Eosinophils/100 WBC (Bld) 2.1 % 0-5 [facility] Glucose [Mass/Vol] 120 mg/dL 74-106 [facility] Comment on above: Fasting Glucose resu lt from 100 to 125 mg/dL suggests IMPAIRED HOMEOSTASIS per A.D.A. criteria. Neutrophils (Bld) [#/Vol] 6.3 10*3/uL 2.0-7.7 [facility] Neutrophils/100 WBC (Bld) 63.6 % 47-70 [facility] Potassium [Moles/Vol] 3.9 mmol/L 3.5-5.1 [facility] Protein [Mass/Vol] 7.0 g/dL 6.4-8.2 [facility] Sodium [Moles/Vol] 138 mmol/L 136-145 [facility] WBC (Bld) [#/Vol] 9.8 10*3/uL 4.4-11.0 [facility] Blood erythrocytes count (nu mber/volume)Ordered By: Denis Caballero on 04-07-2023 RBC (Bld) [#/Vol] 5.30 10*6/uL 4.2-5.4 [facility] Blood hemoglobin measurement (mass/volume)Ordered By: Denis Caballero on 04-07-2023 Hemoglobin (Bld) [Mass/Vol] 14.9 g/dL 12.0-15.0 [facility] Blood lymphocytes/100 leukoc ytesOrdered By: Denis Caballero on 04-07-2023 Lymphocytes/100 WBC (Bld) 27.6 % 19-41 [facility] Blood monocytes/100 leukocyt esOrdered By: Denis Caballero on 04-07-2023 Monocytes/100 WBC (Bld) 5.4 % 0-10 [facility] Blood platelet mean volumeOr dered By: Denis Caballero on 04-07-2023 Platelet mean volume (Bld) [Entitic vol] 9.5 fL 6.2-12.0 [facility] CBC + DIFFon 04-07-2023 Baso # 0.10 x10EE3/UL Normal 0.00 - 0.10 [facility] Comment on above: Performed By: #### 2 [id number] #### [facility],[address] [place] [address] Basophils/100 WBC (Bld) 0.7 % Normal 0.0 - 2.0 [facility] Comment on above: Performed By: #### 2 26185 #### [place] [address] CBC + DIFF Normal [facility] Comment on above: Result Comment: CBC- COMPLETE BLOOD COUNT Performed By: #### 2 62651 #### [place] [address] EO # 0.20 x10EE3/UL Normal 0.00 - 0.50 [facility] Comment on above: Performed By: #### 2 64049 #### [place] [address] Eosinophils/100 WBC (Bld) 1.8 % Normal 0.0 - 7.0 [facility] Comment on above: Performed By: #### 2 04190 #### [place]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 Ventricle: The right ventricular chamber size and systolic function are within normal limits. Right Atrium: The right atrial cavity size is normal. Aortic Valve: The aortic valve is trileaflet. There is no hemodynamically significant stenosis. There is no evidence of aortic regurgitation. Mitral Valve: The mitral valve leaflets appear normal. There is no evidence of mitral valve prolapse. There is a trace of mitral regurgitation. Tricuspid Valve: The tricuspid valve leaflets are normal. There is a trace tricuspid regurgitation. Pulmonary artery pressure could not be estimated. Pulmonic Valve: The pulmonic valve appears normal. There is a trace pulmonic regurgitation. Pericardium: There is no pericardial effusion. Aorta: The aortic root is normal in diameter. Venous: The inferior vena cava appears normal in size. There is a greater than 50% respiratory change in the inferior vena cava dimension. HR 75 BP 119/70 Measurements Chambers 2D Name Value Normal Range IVSd (2D) 0.74 cm none LVPWd (2D) 0.78 cm none IVS:LVPW ratio (2D) 0.96 ratio none LVIDd (2D) 3.58 cm none LVIDs (2D) 2.41 cm none LV EF (2D) 64 % (60 - 100) Ao root diameter (2D) 3 cm none LA dimension (AP) 2D 2.5 cm none LA:Ao ratio (2D) 0.83 ratio none Volumes/Mass Name Value Normal Range LA Area 2 CH 119 cm2 none LA Area 4 CH 70 cm2 none LA ESV SP 4CH (MOD) 39.5 ml none LA ESV SP 2CH (MOD) 41.4 ml none LA ESV BP (MOD) 41.6 ml none LV EDV SP 4CH (MOD) 49.7 ml none LV ESV SP 4CH (MOD) 17.8 ml none LV EDV SP 2CH (MOD) 37.2 ml none LV ESV SP 2CH (MOD) 13 ml none LV EDV BP 42.9 ml none LV ESV BP 15.3 ml none Diastolic/Systolic Function Name Value Normal Range MV E-wave Vmax 0.63 m/sec none MV deceleration time 239 msec none MV A-wave Vmax 1.05 m/sec none MV E:A ratio 0.6 ratio (1.1 - 1.5) LV E:e' septal ratio 7.5 ratio none LV E:e' lateral ratio 12.3 ratio none Aortic Valve Name Value Normal Range AV Vmax 0.94 m/sec (1 - 1.7) AV VTI 15.7 cm none AV peak gradient 4 mmHg (Less Than 36) AV mean gradient 2 mmHg (Less Than 20) LVOT diameter 2 cm (1.7 - 2.5) LVOT Vmax 0.78 m/sec (0.7 - 1.1) LVOT VTI 15.5 cm none LVOT peak gradient 2 mmHg none LVOT mean gradient 1 mmHg none SV LVOT 49 ml none JOHNNA (continuity Vmax) 2.6 cm2 none JOHNNA (continuity VTI) 3.1 cm2 none Ascending Ao 3.1 cm none Electronically Signed at 11/20/2017 11:09:21 by: Dimitri Noble MD, FACC, FASE, FASNC, FSCCT Invalid Interpretation Code [facility] Vital Signs Date Time Vital Sign Value Performing Clinician Facility 02-09-2025 08:56-0400 Body height 157.48 cm MAURA JESS [facility] FACILITY ATTENDANT Work Phone: [facility] 02-09-2025 08:56-0400 Body mass index (BMI) [Ratio] 28.1 kg/m2 MAURA LOPEZORD RECRE[facility] FACILITY ATTENDANT Work Phone: [facility] 02-09-2025 08:56-0400 Body temperature 98.4 [degF] MAURA JESS RECREATION FACILITY ATTENDANT Work Phone: [facility] 02-09-2025 08:56-0400 Body weight 69.85 kg MAURA JESS RECREATION FACILITY ATTENDANT Work Phone: [facility] 02-09-2025 08:56-0400 Diastolic blood pressure 71 mm[Hg] MAURA JESS RECRE[facility] FACILITY ATTENDANT Work Phone: [facility] 02-09-2025 08:56-0400 Heart rate 77 /min MAURA JESS RECRE[employer] FACILITY ATTENDANT Work Phone: [facility] 02-09-2025 08:56-0400 Respiratory rate 15 /min MAURA JESS RECRE[employer] FACILITY ATTENDANT Work Phone: [facility] 02-09-2025 08:56-0400 SaO2% (BldA) [Mass fraction] 95 % MAURA JESS [employer] FACILITY ATTENDANT Work Phone: [facility] 02-09-2025 08:56-0400 Systolic blood pressure 114 mm[Hg] MAURA JESS RECREATION FACILITY ATTENDANT Work Phone: [facility] 12-24-2024 13:56-0400 Body height 157.5 cm Pollo Weeks MD Work Phone: [facility] [employer] 12-24-2024 13:56-0400 Body mass index (BMI) [Ratio] 28.39 kg/m2 Pollo Weeks MD Work Phone: [facility] [employer] 12-24-2024 13:56-0400 Body weight 70.4 kg Pollo Weeks MD Work Phone: [facility] [employer] 12-24-2024 13:56-0400 Diastolic blood pressure 65 mm[Hg] Pollo Weeks MD Work Phone: [facility] [employer] 12-24-2024 13:56-0400 Heart rate 74 /min Pollo Weeks MD Work Phone: [facility] [employer] 12-24-2024 13:56-0400 SaO2% (BldA) [Mass fraction] 95 % Pollo Weeks MD Work Phone: [facility] [employer] 12-24-2024 13:56-0400 Systolic blood pressure 102 mm[Hg] Pollo Weeks MD Work Phone: [facility] [employer] 11-19-2024 14:18-0400 Body temperature 97.5 [degF] Brandie Armentaffey DO Work Phone: [facility] [employer] 11-19-2024 14:18-0400 Diastolic blood pressure 80 mm[Hg] Brandie Skiffey DO Work Phone: [facility] [employer] 11-19-2024 14:18-0400 Heart rate 89 /min Brandie Skiffey DO Work Phone: [facility] [employer] 11-19-2024 14:18-0400 Respiratory rate 16 /min Brandie Skiffey DO Work Phone: [facility] [employer] 11-19-2024 14:18-0400 SaO2% (BldA) [Mass fraction] 94 % Brandie Skiffey DO Work Phone: [facility] [employer] 11-19-2024 14:18-0400 Systolic blood pressure 152 mm[Hg] Brandie Skiffey DO Work Phone: [facility] 11-19-2024 10:22-0400 Body height 157.5 cm Brandie Boyd DO Work Phone: [facility] 11-19-2024 10:22-0400 Body mass index (BMI) [Ratio] 32.56 kg/m2 Brandie Boyd DO Work Phone: [facility] 11-19-2024 10:22-0400 Body weight 80.74 kg Brandie Body DO Work Phone: [facility] 10-15-2024 16:45-0400 SaO2% (BldA) [Mass fraction] 92 % MAURA MERCADO RECRE[facility] FACILITY ATTENDANT Work Phone: [facility] 10-15-2024 16:30-0400 Diastolic blood pressure 64 mm[Hg] MAURA JESS RECREATION FACILITY ATTENDANT Work Phone: [facility] 10-15-2024 16:30-0400 Systolic blood pressure 138 mm[Hg] MAURA LOPEZORD RECREATION FACILITY ATTENDANT Work Phone: [facility] 10-15-2024 14:22-0400 Body height 157.48 cm MAURA JESS RECREATION FACILITY ATTENDANT Work Phone: [facility] 10-15-2024 14:22-0400 Body mass index (BMI) [Ratio] 29 kg/m2 MAURA JESS RECRE[employer] FACILITY ATTENDANT Work Phone: [facility] 10-15-2024 14:22-0400 Body temperature 97.9 [degF] MAURA MERCADO RECREATION FACILITY ATTENDANT Work Phone: [facility] 10-15-2024 14:22-0400 Body weight 72.1 kg MAURA JESS RECREATION FACILITY ATTENDANT Work Phone: [facility] 10-15-2024 14:22-0400 Heart rate 74 /min MAURA MERCADO RECREATION FACILITY ATTENDANT Work Phone: [facility] 10-15-2024 14:22-0400 Respiratory rate 18 /min MAURA MERCADO RECRE[employer] FACILITY ATTENDANT Work Phone: [facility] 05-11-2024 10:40-0400 Body height 154.94 cm Michele Leon Work Phone: [facility] 05-11-2024 10:40-0400 Body mass index (BMI) [Ratio] 29.29 kg/m2 Michele Leon Work Phone: [facility] 05-11-2024 10:40-0400 Body weight 70.31 kg Michele Leon Work Phone: [facility] 12-26-2023 10:21-0400 Body height 157.5 cm Pollo Weeks MD Work Phone: [facility] 12-26-2023 10:21-0400 Body mass index (BMI) [Ratio] 32.56 kg/m2 Pollo Weeks MD Work Phone: [facility] 12-26-2023 10:21-0400 Body weight 80.74 kg Pollo Weeks MD Work Phone: [facility] 12-26-2023 10:21-0400 Diastolic blood pressure 88 mm[Hg] Pollo Weeks MD Work Phone: [facility] 12-26-2023 10:21-0400 Heart rate 95 /min Pollo Weeks MD Work Phone: [facility] 12-26-2023 10:21-0400 SaO2% (BldA) [Mass fraction] 96 % Pollo Weeks MD Work Phone: [facility] 12-26-2023 10:21-0400 Systolic blood pressure 136 mm[Hg] Pollo Weeks MD Work Phone: [facility] 11-29-2023 11:05-0400 Body height 157.48 cm RECREATION FACILITY ATTENDANT-C Tosha Xavier RECREATION FACILITY ATTENDANT Work Phone: [facility] 11-29-2023 11:05-0400 Body mass index (BMI) [Ratio] 28.7 kg/m2 RECREATION FACILITY ATTENDANT-C Tosha Xavier RECREATION FACILITY ATTENDANT Work Phone: [facility] 11-29-2023 11:05-0400 Body weight 71.21 kg RECREATION FACILITY ATTENDANT-C Tosha Purkey RECREATION FACILITY ATTENDANT Work Phone: [facility] 11-29-2023 11:05-0400 Diastolic blood pressure 78 mm[Hg] RECREATION FACILITY ATTENDANT-C Tosha Purkey RECREATION FACILITY ATTENDANT Work Phone: [facility] 11-29-2023 11:05-0400 Heart rate 85 /min RECREATION FACILITY ATTENDANT-C Tosha Purkey RECREATION FACILITY ATTENDANT Work Phone: [facility] 11-29-2023 11:05-0400 Respiratory rate 16 /min RECREATION FACILITY ATTENDANT-C Tosha Purkey RECREATION FACILITY ATTENDANT Work Phone: [facility] 11-29-2023 11:05-0400 SaO2% (BldA) [Mass fraction] 95 % RECREATION FACILITY ATTENDANT-C Tosha Purkey RECREATION FACILITY ATTENDANT Work Phone: [facility] 11-29-2023 11:05-0400 Systolic blood pressure 118 mm[Hg] RECREATION FACILITY ATTENDANT-C Tosha Purkey RECREATION FACILITY ATTENDANT Work Phone: [facility] 09-09-2023 10:46-0500 Body height 157.48 cm RECREATION FACILITY ATTENDANT-C Tosha Purkey RECREATION FACILITY ATTENDANT Work Phone: [facility] 09-09-2023 10:46-0500 Body mass index (BMI) [Ratio] 27.8 kg/m2 RECREATION FACILITY ATTENDANT-C Tosha Purkey RECREATION FACILITY ATTENDANT Work Phone: [facility] 09-09-2023 10:46-0500 Body weight 68.94 kg RECREATION FACILITY ATTENDANT-C Tosha Purkey RECREATION FACILITY ATTENDANT Work Phone: [facility] 09-09-2023 10:46-0500 Diastolic blood pressure 80 mm[Hg] RECREATION FACILITY ATTENDANT-C Tosha Purkey RECREATION FACILITY ATTENDANT Work Phone: [facility] 09-09-2023 10:46-0500 Heart rate 83 /min RECREATION FACILITY ATTENDANT-C Tosha Purkey RECREATION FACILITY ATTENDANT Work Phone: [facility] 09-09-2023 10:46-0500 Respiratory rate 18 /min RECREATION FACILITY ATTENDANT-C Tosha Purkey RECREATION FACILITY ATTENDANT Work Phone: [facility] 09-09-2023 10:46-0500 SaO2% (BldA) [Mass fraction] 95 % RECREATION FACILITY ATTENDANT-C Tosha Purkey RECREATION FACILITY ATTENDANT Work Phone: [facility] 09-09-2023 10:46-0500 Systolic blood pressure 120 mm[Hg] RECREATION FACILITY ATTENDANT-C Tosha Purkey RECREATION FACILITY ATTENDANT Work Phone: [facility] 2023 20:22-0500 Diastolic blood pressure 75 mm[Hg] RECREATION FACILITY ATTENDANT-C Tosha Purkey RECREATION FACILITY ATTENDANT Work Phone: [facility] 2023 20:22-0500 Heart rate 88 /min RECREATION FACILITY ATTENDANT-C Tosha Purkey RECREATION FACILITY ATTENDANT Work Phone: [facility] 2023 20:22-0500 Respiratory rate 21 /min RECREATION FACILITY ATTENDANT-C Tosha Purkey RECREATION FACILITY ATTENDANT Work Phone: [facility] 2023 20:22-0500 Systolic blood pressure 121 mm[Hg] RECREATION FACILITY ATTENDANT-C Tosha Purkey RECREATION FACILITY ATTENDANT Work Phone: [facility] 2023 18:26-0500 Body height 157.48 cm RECREATION FACILITY ATTENDANT-C Tosha Purkey RECREATION FACILITY ATTENDANT Work Phone: [facility] 2023 18:26-0500 Body mass index (BMI) [Ratio] 25.6 kg/m2 RECREATION FACILITY ATTENDANT-C Tosha Purkey RECREATION FACILITY ATTENDANT Work Phone: [facility] 2023 18:26-0500 Body temperature 95.2 [degF] RECREATION FACILITY ATTENDANT-C Tosha Purkey RECREATION FACILITY ATTENDANT Work Phone: [facility] 2023 18:26-0500 Body weight 63.5 kg RECREATION FACILITY ATTENDANT-C Tosha Purkey RECREATION FACILITY ATTENDANT Work Phone: [facility] 2023 18:26-0500 SaO2% (BldA) [Mass fraction] 95 % RECREATION FACILITY ATTENDANT-C Tosha Purkey RECREATION FACILITY ATTENDANT Work Phone: [facility] 08-12-2023 16:17-0500 Diastolic blood pressure 83 mm[Hg] RECREATION FACILITY ATTENDANT-C Tosha Purkey RECREATION FACILITY ATTENDANT Work Phone: [facility] 08-12-2023 16:17-0500 Heart rate 67 /min RECREATION FACILITY ATTENDANT-C Tosha Purkey RECREATION FACILITY ATTENDANT Work Phone: [facility] 08-12-2023 16:17-0500 Respiratory rate 17 /min RECREATION FACILITY ATTENDANT-C Tosha Purkey RECREATION FACILITY ATTENDANT Work Phone: [facility] 08-12-2023 16:17-0500 Systolic blood pressure 155 mm[Hg] RECREATION FACILITY ATTENDANT-C Tosha Purkey RECREATION FACILITY ATTENDANT Work Phone: [facility] 08-12-2023 12:38-0500 SaO2% (BldA) [Mass fraction] 95 % RECREATION FACILITY ATTENDANT-C Tosha Purkey RECREATION FACILITY ATTENDANT Work Phone: [facility] 08-12-2023 12:15-0500 Body height 157 cm RECREATION FACILITY ATTENDANT-C Tosha Purkey RECREATION FACILITY ATTENDANT Work Phone: [facility] 08-12-2023 12:15-0500 Body mass index (BMI) [Ratio] 25.7 kg/m2 RECREATION FACILITY ATTENDANT-C Tosha Purkey RECREATION FACILITY ATTENDANT Work Phone: [facility] 08-12-2023 12:15-0500 Body temperature 96.3 [degF] RECREATION FACILITY ATTENDANT-C Tosha Purkey RECREATION FACILITY ATTENDANT Work Phone: [facility] 08-12-2023 12:15-0500 Body weight 63.5 kg RECREATION FACILITY ATTENDANT-C Tosha Purkey RECREATION FACILITY ATTENDANT Work Phone: [facility] 05-01-2023 10:05-0400 Body mass index (BMI) [Ratio] 27.1 kg/m2 RECREATION FACILITY ATTENDANT-C Tosha Purkey RECREATION FACILITY ATTENDANT Work Phone: [facility] 05-01-2023 10:05-0400 Body weight 67.13 kg RECREATION FACILITY ATTENDANT-C Tosha Purkey RECREATION FACILITY ATTENDANT Work Phone: [facility] 05-01-2023 10:05-0400 Diastolic blood pressure 81 mm[Hg] RECREATION FACILITY ATTENDANT-C Tosha Purkey RECREATION FACILITY ATTENDANT Work Phone: [facility] 05-01-2023 10:05-0400 Heart rate 83 /min RECREATION FACILITY ATTENDANT-C Tosha Purkey RECREATION FACILITY ATTENDANT Work Phone: [facility] 05-01-2023 10:05-0400 Respiratory rate 16 /min RECREATION FACILITY ATTENDANT-C Tosha Purkey RECREATION FACILITY ATTENDANT Work Phone: [facility] 05-01-2023 10:05-0400 Systolic blood pressure 127 mm[Hg] RECREATION FACILITY ATTENDANT-C Tosha Purkey RECREATION FACILITY ATTENDANT Work Phone: [facility] 04-08-2023 17:43-0400 Body height 157.48 cm [facility] 04-08-2023 17:43-0400 Body mass index (BMI) [Ratio] 27.3 kg/m2 [facility] 04-08-2023 17:43-0400 Body temperature 96.9 [degF] [facility] 04-08-2023 17:43-0400 Body weight 67.72 kg [facility] 04-08-2023 17:43-0400 Diastolic blood pressure 87 mm[Hg] [facility] 04-08-2023 17:43-0400 Heart rate 85 /min [facility] 04-08-2023 17:43-0400 Respiratory rate 16 /min [facility] 04-08-2023 17:43-0400 SaO2% (BldA) [Mass fraction] 97 % [facility] 04-08-2023 17:43-0400 Systolic blood pressure 137 mm[Hg] [facility] 04-08-2023 02:22-0400 Diastolic blood pressure 86 mm[Hg] [facility] 04-08-2023 02:22-0400 Heart rate 81 /min [facility] 04-08-2023 02:22-0400 Respiratory rate 15 /min [facility] 04-08-2023 02:22-0400 SaO2% (BldA) [Mass fraction] 94 % [facility] 04-08-2023 02:22-0400 Systolic blood pressure 135 mm[Hg] [facility] 04-07-2023 22:52-0400 Body mass index (BMI) [Ratio] 27.3 kg/m2 [facility] 04-07-2023 22:52-0400 Body temperature 98.3 [degF] [facility] 04-07-2023 22:52-0400 Body weight 67.84 kg [facility] 05-28-2022 08:49-0400 Body height 157.48 cm RECREATION FACILITY ATTENDANT-C Tosha Purkey RECREATION FACILITY ATTENDANT Work Phone: [facility] Work Phone: 05-28-2022 08:49-0400 Body mass index (BMI) [Ratio] 26.3 kg/m2 RECREATION FACILITY ATTENDANT-C Tosha Purkey RECREATION FACILITY ATTENDANT Work Phone: [facility] Work Phone: 05-28-2022 08:49-0400 Body weight 65.31 kg RECREATION FACILITY ATTENDANT-C Tosha Purkey RECREATION FACILITY ATTENDANT Work Phone: [facility] Work Phone: 05-28-2022 08:49-0400 Diastolic blood pressure 79 mm[Hg] RECREATION FACILITY ATTENDANT-C Tosha Purkey RECREATION FACILITY ATTENDANT Work Phone: [facility] Work Phone: 05-28-2022 08:49-0400 Heart rate 84 /min RECREATION FACILITY ATTENDANT-C Tosha Purkey RECREATION FACILITY ATTENDANT Work Phone: [facility] Work Phone: 05-28-2022 08:49-0400 Respiratory rate 18 /min RECREATION FACILITY ATTENDANT-C Tosha Purkey RECREATION FACILITY ATTENDANT Work Phone: [facility] Work Phone: 05-28-2022 08:49-0400 SaO2% (BldA) [Mass fraction] 96 % RECREATION FACILITY ATTENDANT-C Tosha Purkey RECREATION FACILITY ATTENDANT Work Phone: [facility] Work Phone: 05-28-2022 08:49-0400 Systolic blood pressure 126 mm[Hg] RECREATION FACILITY ATTENDANT-C Tosha Purkey RECREATION FACILITY ATTENDANT Work Phone: [facility] Work Phone: 05-08-2022 16:14-0400 SaO2% (BldA) [Mass fraction] 97 % RECREATION FACILITY ATTENDANT-C Tosha Purkey RECREATION FACILITY ATTENDANT Work Phone: [facility] Work Phone: 05-08-2022 14:48-0400 Body temperature 99.1 [degF] RECREATION FACILITY ATTENDANT-C Tosha Purkey RECREATION FACILITY ATTENDANT Work Phone: [facility] Work Phone: 05-08-2022 14:48-0400 Diastolic blood pressure 74 mm[Hg] RECREATION FACILITY ATTENDANT-C Tosha Purkey RECREATION FACILITY ATTENDANT Work Phone: [facility] Work Phone: 05-08-2022 14:48-0400 Heart rate 81 /min RECREATION FACILITY ATTENDANT-C Tosha Purkey RECREATION FACILITY ATTENDANT Work Phone: [facility] Work Phone: 05-08-2022 14:48-0400 Respiratory rate 14 /min RECREATION FACILITY ATTENDANT-C Tosha Purkey RECREATION FACILITY ATTENDANT Work Phone: [facility] Work Phone: 05-08-2022 14:48-0400 Systolic blood pressure 120 mm[Hg] RECREATION FACILITY ATTENDANT-C Tosha Purkey RECREATION FACILITY ATTENDANT Work Phone: [facility] Work Phone: 05-08-2022 05:25-0400 Body weight 63.4 kg RECREATION FACILITY ATTENDANT-C Tosha Purkey RECREATION FACILITY ATTENDANT Work Phone: [facility] Work Phone: 05-07-2022 08:36-0400 Body height 157.48 cm RECREATION FACILITY ATTENDANT-C Tosha Purkey RECREATION FACILITY ATTENDANT Work Phone: [facility] Work Phone: 05-07-2022 08:36-0400 Body mass index (BMI) [Ratio] 25.6 kg/m2 RECREATION FACILITY ATTENDANT-C Tosha Purkey RECREATION FACILITY ATTENDANT Work Phone: [facility] Work Phone: 05-05-2022 19:41-0400 Body temperature 96.3 [degF] RECREATION FACILITY ATTENDANT-C Tosha Purkey RECREATION FACILITY ATTENDANT Work Phone: [facility] Work Phone: 05-05-2022 19:41-0400 Diastolic blood pressure 98 mm[Hg] RECREATION FACILITY ATTENDANT-C Tosha Purkey RECREATION FACILITY ATTENDANT Work Phone: [facility] Work Phone: 05-05-2022 19:41-0400 Heart rate 91 /min RECREATION FACILITY ATTENDANT-C Tosha Purkey RECREATION FACILITY ATTENDANT Work Phone: [facility] Work Phone: 05-05-2022 19:41-0400 Respiratory rate 18 /min RECREATION FACILITY ATTENDANT-C Tosha Purkey RECREATION FACILITY ATTENDANT Work Phone: [facility] Work Phone: 05-05-2022 19:41-0400 SaO2% (BldA) [Mass fraction] 96 % RECREATION FACILITY ATTENDANT-C Tosha Purkey RECREATION FACILITY ATTENDANT Work Phone: [facility] Work Phone: 05-05-2022 19:41-0400 Systolic blood pressure 128 mm[Hg] RECREATION FACILITY ATTENDANT-C Tosha Purkey RECREATION FACILITY ATTENDANT Work Phone: [facility] Work Phone: 05-05-2022 15:51-0400 Body height 157.48 cm RECREATION FACILITY ATTENDANT-C Tosha Purkey RECREATION FACILITY ATTENDANT Work Phone: [facility] Work Phone: 05-05-2022 15:51-0400 Body mass index (BMI) [Ratio] 25.6 kg/m2 RECREATION FACILITY ATTENDANT-C Tosha Purkey RECREATION FACILITY ATTENDANT Work Phone: [facility] Work Phone: 05-05-2022 15:51-0400 Body weight 63.5 kg RECREATION FACILITY ATTENDANT-C Tosha Purkey RECREATION FACILITY ATTENDANT Work Phone: [facility] Work Phone: 03-07-2022 13:57-0400 Body height 157.48 cm RECREATION FACILITY ATTENDANT-C Tosha Purkey RECREATION FACILITY ATTENDANT Work Phone: [facility] Work Phone: 03-07-2022 13:57-0400 Body mass index (BMI) [Ratio] 25.9 kg/m2 RECREATION FACILITY ATTENDANT-C Tosha Purkey RECREATION FACILITY ATTENDANT Work Phone: [facility] Work Phone: 03-07-2022 13:57-0400 Body weight 64.41 kg RECREATION FACILITY ATTENDANT-C Tosha Purkey RECREATION FACILITY ATTENDANT Work Phone: [facility] Work Phone: 03-07-2022 13:57-0400 Diastolic blood pressure 73 mm[Hg] RECREATION FACILITY ATTENDANT-C Tosha Purkey RECREATION FACILITY ATTENDANT Work Phone: [facility] Work Phone: 03-07-2022 13:57-0400 Heart rate 72 /min RECREATION FACILITY ATTENDANT-C Tosha Purkey RECREATION FACILITY ATTENDANT Work Phone: [facility] Work Phone: 03-07-2022 13:57-0400 Respiratory rate 18 /min RECREATION FACILITY ATTENDANT-C Tosha Purkey RECREATION FACILITY ATTENDANT Work Phone: [facility] Work Phone: 03-07-2022 13:57-0400 SaO2% (BldA) [Mass fraction] 96 % RECREATION FACILITY ATTENDANT-C Tosha Purkey RECREATION FACILITY ATTENDANT Work Phone: [facility] Work Phone: 03-07-2022 13:57-0400 Systolic blood pressure 123 mm[Hg] RECREATION FACILITY ATTENDANT-C Tosha Purkey RECREATION FACILITY ATTENDANT Work Phone: [facility] Work Phone: 02-26-2022 10:04-0400 Body height 157.48 cm RECREATION FACILITY ATTENDANT-C Tosha Purkey RECREATION FACILITY ATTENDANT Work Phone: [facility] Work Phone: 02-26-2022 10:04-0400 Body weight 64.86 kg RECREATION FACILITY ATTENDANT-C Tosha Purkey RECREATION FACILITY ATTENDANT Work Phone: [facility] Work Phone: 02-23-2022 11:10-0400 Body mass index (BMI) [Ratio] 26.2 kg/m2 RECREATION FACILITY ATTENDANT-C Tosha Purkey RECREATION FACILITY ATTENDANT Work Phone: [facility] Work Phone: 02-08-2022 13:56-0400 Body temperature 98.9 [degF] RECREATION FACILITY ATTENDANT-C Tosha Purkey RECREATION FACILITY ATTENDANT Work Phone: [facility] Work Phone: 02-08-2022 13:56-0400 Diastolic blood pressure 78 mm[Hg] RECREATION FACILITY ATTENDANT-C Tosha Purkey RECREATION FACILITY ATTENDANT Work Phone: [facility] Work Phone: 02-08-2022 13:56-0400 Heart rate 78 /min RECREATION FACILITY ATTENDANT-C Tosha Purkey RECREATION FACILITY ATTENDANT Work Phone: [facility] Work Phone: 02-08-2022 13:56-0400 Respiratory rate 14 /min RECREATION FACILITY ATTENDANT-C Tosha Purkey RECREATION FACILITY ATTENDANT Work Phone: [facility] Work Phone: 02-08-2022 13:56-0400 SaO2% (BldA) [Mass fraction] 99 % RECREATION FACILITY ATTENDANT-C Tosha Purkey RECREATION FACILITY ATTENDANT Work Phone: [facility] Work Phone: 02-08-2022 13:56-0400 Systolic blood pressure 116 mm[Hg] RECREATION FACILITY ATTENDANT-C Tosha Purkey RECREATION FACILITY ATTENDANT Work Phone: [facility] Work Phone: 02-08-2022 11:34-0400 Body height 157.48 cm RECREATION FACILITY ATTENDANT-C Tosha Purkey RECREATION FACILITY ATTENDANT Work Phone: [facility] Work Phone: 02-08-2022 11:34-0400 Body mass index (BMI) [Ratio] 27.6 kg/m2 RECREATION FACILITY ATTENDANT-C Tosha Purkey RECREATION FACILITY ATTENDANT Work Phone: [facility] Work Phone: 02-08-2022 11:34-0400 Body weight 68.5 kg RECREATION FACILITY ATTENDANT-C Tosha Purkey RECREATION FACILITY ATTENDANT Work Phone: [facility] Work Phone: 12-13-2021 12:48-0400 Body mass index (BMI) [Ratio] 26.2 kg/m2 RECREATION FACILITY ATTENDANT-C Tosha Purkey RECREATION FACILITY ATTENDANT Work Phone: [facility] Work Phone: 12-13-2021 12:48-0400 Body weight 64.86 kg RECREATION FACILITY ATTENDANT-C Tosha Purkey RECREATION FACILITY ATTENDANT Work Phone: [facility] Work Phone: 12-13-2021 12:48-0400 Diastolic blood pressure 75 mm[Hg] RECREATION FACILITY ATTENDANT-C Tosha Purkey RECREATION FACILITY ATTENDANT Work Phone: [facility] Work Phone: 12-13-2021 12:48-0400 Heart rate 67 /min RECREATION FACILITY ATTENDANT-C Tosha Purkey RECREATION FACILITY ATTENDANT Work Phone: [facility] Work Phone: 12-13-2021 12:48-0400 Respiratory rate 18 /min RECREATION FACILITY ATTENDANT-C Tosha Purkey RECREATION FACILITY ATTENDANT Work Phone: [facility] Work Phone: 12-13-2021 12:48-0400 SaO2% (BldA) [Mass fraction] 98 % RECREATION FACILITY ATTENDANT-C Tosha Morenita RECREATION FACILITY ATTENDANT Work Phone: [facility] Work Phone: 12-13-2021 12:48-0400 Systolic blood pressure 126 mm[Hg] RECREATION FACILITY ATTENDANT-C Tosha Xavier RECREATION FACILITY ATTENDANT Work Phone: [facility] Work Phone: 11-23-2021 15:23-0400 Heart rate 93 /min Dr. All Cast Work Phone: [facility] Work Phone: 11-23-2021 14:09-0400 Diastolic blood pressure 74 mm[Hg] Dr. All [employer] Work Phone: [facility] Work Phone: 11-23-2021 14:09-0400 Systolic blood pressure 113 mm[Hg] Dr. [employer] Work Phone: [facility] Work Phone: 11-23-2021 13:59-0400 Body temperature 97.7 [degF] Dr. [employer] Work Phone: [facility] Work Phone: 11-23-2021 13:59-0400 Respiratory rate 16 /min Dr. [employer] Work Phone: [facility] Work Phone: 11-23-2021 13:59-0400 SaO2% (BldA) [Mass fraction] 94 % Dr. [employer] Work Phone: [facility] Work Phone: 11-23-2021 09:38-0400 Body height 157.[address] [employer] Work Phone: [facility] Work Phone: 11-23-2021 09:38-0400 Body mass index (BMI) [Ratio] 25.8 kg/m2 Dr. [employer] Work Phone: [facility] Work Phone: 11-23-2021 09:38-0400 Body weight [address] [employer] Work Phone: [facility] Work Phone: 10-31-2021 09:12-0400 Diastolic blood pressure 73 mm[Hg] Dr. [employer] Work Phone: [facility] Work Phone: 10-31-2021 09:12-0400 Heart rate 87 /min Dr. [employer] Work Phone: [facility] Work Phone: 10-31-2021 09:12-0400 Systolic blood pressure 112 mm[Hg] Dr. [employer] Work Phone: [facility] Work Phone: 10-31-2021 09:10-0400 Body temperature 97.9 [degF] Dr. [employer] Work Phone: [facility] Work Phone: 10-31-2021 09:10-0400 Respiratory rate 16 /min Dr. [employer] Work Phone: [facility] Work Phone: 10-31-2021 09:10-0400 SaO2% (BldA) [Mass fraction] 95 % Dr. [employer] Work Phone: [facility] Work Phone: 10-31-2021 07:22-0400 Inhaled oxygen flow rate 1 L/min MILTON Xavier NP Work Phone: [facility] Work Phone: 10-30-2021 09:15-0400 Body height 157.[address] [employer] Work Phone: [facility] Work Phone: 10-30-2021 09:15-0400 Body weight 66.[address] [employer] Work Phone: [facility] Work Phone: 10-20-2021 07:57-0400 Body mass index (BMI) [Ratio] 26.9 kg/m2 Dr. [employer] Work Phone: [facility] Work Phone: 10-06-2021 09:36-0500 Body mass index (BMI) [Ratio] 26.9 kg/m2 Dr. [employer] Work Phone: [facility] Work Phone: 10-06-2021 09:36-0500 Body weight 66.[address] [employer] Work Phone: [facility] Work Phone: 10-06-2021 09:36-0500 Diastolic blood pressure 83 mm[Hg] Dr. [employer] Work Phone: [facility] Work Phone: 10-06-2021 09:36-0500 Heart rate 86 /min Dr. [employer] Work Phone: [facility] Work Phone: 10-06-2021 09:36-0500 Respiratory rate 16 /min Dr. [employer] Work Phone: [facility] Work Phone: 10-06-2021 09:36-0500 SaO2% (BldA) [Mass fraction] 94 % Dr. [employer] Work Phone: [facility] Work Phone: 10-06-2021 09:36-0500 Systolic blood pressure 163 mm[Hg] Dr. [employer] Work Phone: [facility] Work Phone: 12-27-2017 15:25-0400 BP Diastolic 76 mm[Hg] [facility] 12-27-2017 15:25-0400 BP Systolic 116 mm[Hg] [facility] 12-27-2017 15:25-0400 Pulse (Heart Rate) 101 /min [facility] 12-27-2017 15:20-0400 BMI (Body Mass Index) 27.87 kg/m2 [facility] 12-27-2017 15:20-0400 Height 157.5 cm [facility] 12-27-2017 15:20-0400 Weight 69.13 kg [facility] Encounters Encounter Date Encounter Type Care Provider Facility Start: 04-28-2025 ambulatory Rudolph Smith Facilit y:[facility] Start: 04-19-2025 End: 04-19-2025 ambulatory [facility] Facility: Start: 04-14-2025 ambulatory Rudolph Smith Facilit y:[facility] Start: 03-02-2025 End: 03-02-2025 ambulatory Maura Mercado RECREATION FACILITY ATTENDANT-C Work Phone: -[facility] Start: 03-02-2025 End: 03-02-[address] Rudolph Smith MD -[facility] Work Phone: Start: 03-02-2025 End: 03-02-2025 ambulatory Rudolph Oseimelonie Facility:[facility] Start: 02-09-2025 End: 02-09-[address] Rudolph Smith MD -[facility] Work Phone: Start: 02-09-2025 End: 02-09-2025 ambulatory MAURA MERCADO RECREATION FACILITY ATTENDANT Work Phone: -[facility] Start: 12-24-2024 End: 12-24-2024 ambulatory POLLO WEEKS [facility] Start: 12-24-2024 End: 12-24-2024 Office outpatient visit 25 minutes Pollo Weeks MD Work Phone: [facility] [place] Comment on above: Syncope, unspecified syncope type (Primary Dx) Start: 11-18-2024 End: 11-19-[facility]24 [facility] Start: 11-18-2024 End: 11-19-2024 Emergency department patient visit Brandie Boyd DO Work Phone: [facility] PCU 3W Comment on above: Syncope, unspecified syncope type (Primary Dx); Chest pain, unspecified type; Right foot drop Start: 11-16-2024 ambulatory Maura Mercado Facilit y:[facility] Start: 11-16-2024 Registered Referred Maura Mercado RECREATION FACILITY ATTENDANT-C -Cardiovascular Services Work Phone: Start: 11-16-2024 ambulatory [employer] [facility] Facility:[facility] Start: 11-16-2024 Non-patient / Non-visit [facility] Work Phone: Start: 10-27-2024 ambulatory Tosha Crandallsamina Facility:[facility] Start: 10-15-2024 End: 10-15-2024 Emergency department patient visit MAURA MERCADO NP Work Phone: -Emergency Department Work Phone: Start: 08-07-2024 End: 08-10-2024 ambulatory TIFFANI ANDERSON [facility] Start: 08-06-2024 ambulatory Alysia Stewart RECREATION FACILITY ATTENDANT Facilit y:[facility] Start: 08-02-2024 End: 08-02-2024 Emergency department patient visit DENIS MATTHEW [facility] Start: 05-11-2024 End: 05-11-2024 Office outpatient new 30 minutes Michele Leon Work Phone: [facility] Start: 05-07-2024 End: 05-07-2024 Encounter identifier Michele Leon Work Phone: [facility] Start: 04-17-2024 End: 07-17-2024 ambulatory MAURA MERCADO Facility:[facility] Start: 04-01-2024 End: 04-01-2024 ambulatory MAURA MERCADO Facility:[facility] Start: 03-31-2024 End: 03-31-2024 ambulatory JOVANI MORALES SPIN TABLE OPERATOR~[id number] Facility:[facility] Start: 12-26-2023 End: 12-26-2023 Office outpatient new 45 minutes Pollo Weeks MD Work Phone: [facility] Comment on above: Shortness of breath Start: 11-29-2023 End: 11-29-2023 ambulatory RECREATION FACILITY ATTENDANT-C Tosha Xavier RECREATION FACILITY ATTENDANT Work Phone: [facility] Work Phone: Start: 11-29-2023 End: 11-29-2023 Patient encounter procedure RECREATION FACILITY ATTENDANT-C Tosha Xavier RECREATION FACILITY ATTENDANT Work Phone: [facility] Work Phone: Start: 11-21-2023 End: 11-21-2023 ambulatory TOSHA XAVIER [facility] Start: 09-09-2023 End: 09-09-2023 ambulatory RECREATION FACILITY ATTENDANT-C Tosha Xavier RECREATION FACILITY ATTENDANT Work Phone: [facility] Work Phone: Start: 09-09-2023 End: 09-09-2023 Patient encounter procedure RECREATION FACILITY ATTENDANT-C Tosha Xavier RECREATION FACILITY ATTENDANT Work Phone: [facility] Work Phone: Start: 09-09-2023 End: 09-09-2023 Patient encounter procedure RECREATION FACILITY ATTENDANT-C Tosha Xavier RECREATION FACILITY ATTENDANT Work Phone: [facility] Work Phone: Start: 2023 End: 2023 Emergency department patient visit RECREATION FACILITY ATTENDANT-C Tosha Xavier RECREATION FACILITY ATTENDANT Work Phone: [facility] Work Phone: Start: 08-12-2023 End: 08-12-2023 Emergency department patient visit RECREATION FACILITY ATTENDANT-C Tosha Xavier RECREATION FACILITY ATTENDANT Work Phone: [facility] Work Phone: Start: 05-01-2023 End: 05-01-2023 Patient encounter procedure RECREATION FACILITY ATTENDANT-C Tosha Xavier RECREATION FACILITY ATTENDANT Work Phone: [facility] Work Phone: Start: 04-08-2023 Evaluation and manag ement of inpatient [facility] 3 Work Phone: Start: 04-08-2023 observation encounter [facility] Work Phone: Start: 04-07-2023 End: 04-08-2023 Emergency department patient visit [facility] Work Phone: Start: 04-07-2023 End: 04-07-2023 Emergency department patient visit TOSHA XAVIER [facility] Start: 10-16-2022 End: 10-16-2022 Subsequent hospital visit by physician Tosha Xavier RUBBER PRODUCTION MACHINE OPERATOR Work Phone: [facility] Comment on above: Chest discomfort; Malaise Arrived Start: 06-15-2022 Non-patient / Non-visit RECREATION FACILITY ATTENDANT-C Rodolfo Xavier RECREATION FACILITY ATTENDANT Work Phone: [facility] Start: 06-15-2022 End: 06-15-2022 ambulatory RECREATION FACILITY ATTENDANT-C Tosha Xavier RECREATION FACILITY ATTENDANT Work Phone: [facility] Work Phone: Start: 06-15-2022 End: 06-15-2022 Patient encounter procedure RECREATION FACILITY ATTENDANT-C Tosha Xavier RECREATION FACILITY ATTENDANT Work Phone: [facility] Start: 05-28-2022 End: 05-28-2022 Patient encounter procedure RECREATION FACILITY ATTENDANT-C Tosha Xavier RECREATION FACILITY ATTENDANT Work Phone: [facility] Start: 05-08-2022 Non-patient / Non-visit RECREATION FACILITY ATTENDANT-C A nna Purkey RECREATION FACILITY ATTENDANT Work Phone: [facility] Start: 05-07-2022 Non-patient / Non-visit RECREATION FACILITY ATTENDANT-C A nna Purkey RECREATION FACILITY ATTENDANT Work Phone: [facility] Start: 05-07-2022 Non-patient / Non-visit RECREATION FACILITY ATTENDANT-C A nna Purkey RECREATION FACILITY ATTENDANT Work Phone: [facility] Start: 05-06-2022 End: 05-08-2022 Evaluation and management of inpatient RECREATION FACILITY ATTENDANT-C Tosha Xavier RECREATION FACILITY ATTENDANT [facility] Start: 05-06-2022 Non-patient / Non-visit RECREATION FACILITY ATTENDANT-C A nna Purkey RECREATION FACILITY ATTENDANT Work Phone: [facility] Start: 05-06-2022 Non-patient / Non-visit RECREATION FACILITY ATTENDANT-C A nna Purkey RECREATION FACILITY ATTENDANT Work Phone: [facility] Start: 05-05-2022 Evaluation and manag ement of inpatient RECREATION FACILITY ATTENDANT-C Tosha Xavier RECREATION FACILITY ATTENDANT [facility] Start: 05-05-2022 observation encounter RECREATION FACILITY ATTENDANT-C Junie Xavier RECREATION FACILITY ATTENDANT Work Phone: [facility] Work Phone: Start: 05-05-2022 Non-patient / Non-visit RECREATION FACILITY ATTENDANT-C A nna Purkey RECREATION FACILITY ATTENDANT Work Phone: [facility] Start: 04-04-2022 End: 04-04-2022 Subsequent hospital visit by physician Tosha Xavier RUBBER PRODUCTION MACHINE OPERATOR Work Phone: [facility] Start: 03-30-2022 End: 03-30-2022 ambulatory RECREATION FACILITY ATTENDANT-C Tosha Xavier RECREATION FACILITY ATTENDANT Work Phone: [facility] Work Phone: Start: 03-30-2022 End: 03-30-2022 Patient encounter procedure RECREATION FACILITY ATTENDANT-C Tosha Xavier RECREATION FACILITY ATTENDANT Work Phone: [facility] Start: 03-20-2022 End: 03-20-2022 Subsequent hospital visit by physician Tosha Xavier RUBBER PRODUCTION MACHINE OPERATOR Work Phone: [facility] Start: 03-07-2022 End: 03-07-2022 Patient encounter procedure RECREATION FACILITY ATTENDANT-C Tosha Xavier RECREATION FACILITY ATTENDANT Work Phone: [facility] Start: 02-26-2022 Non-patient / Non-visit RECREATION FACILITY ATTENDANT-C Rodolfo Xavier RECREATION FACILITY ATTENDANT Work Phone: [facility] Start: 02-26-2022 End: 02-26-2022 Admission to same day surgery center RECREATION FACILITY ATTENDANT-C Tosha Xavier RECREATION FACILITY ATTENDANT Work Phone: [facility] Locker Room Attendant/Special Procedures Start: 02-20-2022 Non-patient / Non-visit RECREATION FACILITY ATTENDANT-C Rodolfo Xavier RECREATION FACILITY ATTENDANT Work Phone: [facility] Start: 02-20-2022 End: 02-20-2022 Patient encounter procedure RECREATION FACILITY ATTENDANT-C Tosha Xavier RECREATION FACILITY ATTENDANT Work Phone: [facility] Start: 02-08-2022 End: 02-08-2022 Emergency department patient visit RECREATION FACILITY ATTENDANT-C Tosha Xavier RECREATION FACILITY ATTENDANT Work Phone: [facility] Start: 12-13-2021 End: 12-13-2021 Patient encounter procedure RECREATION FACILITY ATTENDANT-C Tosha Xavier RECREATION FACILITY ATTENDANT Work Phone: [facility] Start: 12-13-2021 End: 12-13-2021 Patient encounter procedure RECREATION FACILITY ATTENDANT-C Tosha Xavier RECREATION FACILITY ATTENDANT Work Phone: [facility] Start: 11-23-2021 Non-patient / Non-visit Dr. Niko Cast Work Phone: [facility] Start: 11-23-2021 Non-patient / Non-visit Dr. Niko Cast Work Phone: [facility] Start: 11-23-2021 Non-patient / Non-visit Dr. Niko Cast Work Phone: [facility] Start: 11-22-2021 Non-patient / Non-visit Dr. Niko Cast Work Phone: [facility] Start: 11-22-2021 End: 11-23-2021 Evaluation and management of inpatient [facility] All [facility] Start: 11-22-2021 Non-patient / Non-visit Dr. Nkio Cast Work Phone: [facility] Start: 11-10-2021 End: 11-10-[address] All Cast Work Phone: [facility] Start: 11-10-2021 Non-patient / Non-visit Dr. Niko Cast Work Phone: [facility] Start: 10-31-2021 Non-patient / Non-visit Dr. Niko Cast Work Phone: [facility] Start: 10-30-2021 Non-patient / Non-visit Dr. Niko Cast Work Phone: [facility] Start: 10-30-2021 End: 10-31-2021 Evaluation and management of inpatient [facility]. All Cast [facility] Start: 10-06-2021 End: 10-06-[address] All Cast Work Phone: [facility] Start: 10-06-2021 End: 10-06-[address] All Cast Work Phone: [facility] Start: 09-11-2021 End: 09-11-2021 Subsequent hospital visit by physician Lucho Vo DO Work Phone: [facility] Comment on above: SOB (shortness of br eath); Chest pain, unspecified type; Anginal equivalent (HCC) Start: 08-22-2021 Transcribe Orders Tosha mtz RUBBER PRODUCTION MACHINE OPERATOR Work Phone: [facility] Comment on above: Tricuspid valve insu fficiency, unspecified etiology (Primary Dx) Start: 02-14-2021 End: 02-14-2021 Subsequent hospital visit by physician Tosha Xavier CNP Work Phone: [facility] Comment on above: Pain in right hand Start: 02-13-2021 End: 02-13-2021 Subsequent hospital visit by physician Tosha Xavier CNP Work Phone: [facility] Start: 08-12-2020 End: 08-12-2020 Orders Only Alexia Figueredo Litoyeny Work Phone: [facility] Start: 07-19-2020 End: 07-19-2020 Subsequent hospital visit by physician Tosha Xavier Work Phone: [facility] Start: 02-11-2020 End: 02-11-2020 Subsequent hospital visit by physician Vielka Nicholas Work Phone: [facility] Comment on above: Subclinical hypothyr oidism Start: 05-20-2019 End: 05-20-2019 Subsequent hospital visit by physician Tosha Xavier Work Phone: [facility] Start: 05-20-2019 End: 05-20-2019 Subsequent hospital visit by physician Tosha Xavier Work Phone: [facility] PreAdmission Testing Comment on above: Arrived Start: 04-15-2019 End: 04-15-2019 Subsequent hospital visit by physician Tosha Xavier Work Phone: [facility] Start: 12-27-2017 End: 12-27-[address] [facility] Start: 12-27-2017 End: 12-27-2017 Office/outpatient visit, new, level 3 Darnell Hillman Work Phone: [facility] Start: 11-20-2017 End: 11-21-2017 Ambulatory [facility] Start: 11-20-2017 End: 11-20-2017 Ambulatory [facility] Work Phone: [facility] Cardiac Non-Invasive Lab Procedures Date Procedure Procedure Detail Performing Clinician Start: 03-02-2025 Urine lambda light c andrés measurement Maura Mercado RECREATION FACILITY ATTENDANT-C Work Phone: Start: 11-19-2024 [address] perfusion a n[address] w/blood flow&volume Deidre Borges MD Work Phone: Start: 11-19-2024 Ct angiography head w/contrast/noncontrast Deidre Borges MD Work Phone: Start: 11-19-2024 Echo tthrc r-t 2d w/wom-mode compl spec&colr d Berry Ott MD Work Phone: Start: 11-19-2024 Comprehensive metabo lic panel Berry Ott MD Work Phone: Start: 11-19-2024 Lipid panel Berry Cruz MD Work Phone: Start: 11-19-2024 Lipid 1996 panel - S paulette or Plasma Brandie Boyd DO Work Phone: Start: 11-18-2024 Ct head/brain w/o co ntrast material Berry Ott MD Work Phone: Start: 11-18-2024 Assay of troponin quantitative Iggy Caldwell MD Work Phone: Start: 11-18-2024 Basic metabolic pane l calcium total Iggy Caldwell MD Work Phone: Start: 11-18-2024 Radiologic exam ches t single view Iggy Caldwell MD Work Phone: Start: 11-18-2024 Ecg routine ecg w/le ast 12 lds trcg only w/o i&r Brandie Boyd DO Work Phone: Start: 10-15-2024 CT of head without contrast MAURA LOPEZORD RECREATION FACILITY ATTENDANT Work Phone: Start: 05-11-2024 End: 05-11-2024 Radex hand minimum 3 views Michele husain PA-C Start: 05-06-2024 Thyrotropin [Units/v olume] in Serum or Plasma Brandie Boyd DO Work Phone: Start: 12-26-2023 Ecg routine ecg w/le ast 12 lds w/i&r Pollo Weeks MD Work Phone: Start: 12-16-2023 Thyrotropin [Units/v olume] in Serum or Plasma Pollo Weeks MD Work Phone: Start: 08-12-2023 Plain chest X-ray RECREATION FACILITY ATTENDANT-C Tosha Xavier NP Work Phone: Start: 04-07-2023 Computed tomography of abdomen and pelvis with intravenous contrast Start: 04-07-2023 Urinalysis TOSHA Knight Comment on above: Result Comment: URIN ALYSIS Performed By: #### [id number] #### [facility] [place] [address] Start: 10-16-2022 Ecg routine ecg w/le ast 12 lds trcg only w/o i&r Tosha Xavier RUBBER PRODUCTION MACHINE OPERATOR Work Phone: Start: 10-16-2022 Radiologic exam ches t 2 views Tosha Xavier RUBBER PRODUCTION MACHINE OPERATOR Work Phone: Start: 10-10-2022 Colonoscopy RECREATION FACILITY ATTENDANT-C Tosha Purkey RECREATION FACILITY ATTENDANT Work Phone: Start: 04-04-2022 CBC W Auto Different ial panel - Blood Tosha Nunez Morenita RUBBER PRODUCTION MACHINE OPERATOR Work Phone: Start: 03-30-2022 Ultrasonography of abdomen RECREATION FACILITY ATTENDANT-C Tosha Morenita RECREATION FACILITY ATTENDANT Work Phone: Start: 02-20-2022 Cardiovascular stres s test using pharmacologic stress agent RECREATION FACILITY ATTENDANT-C Tosha Xavier RECREATION FACILITY ATTENDANT Work Phone: Start: 02-08-2022 CT angiography of ch est with contrast RECREATION FACILITY ATTENDANT-C Tosha Xavier RECREATION FACILITY ATTENDANT Work Phone: Start: 02-08-2022 Plain chest X-ray RECREATION FACILITY ATTENDANT-C Tosha Xavier RECREATION FACILITY ATTENDANT Work Phone: Start: 11-23-2021 End: 11-23-[address] All Cast Work Phone: Start: 11-23-[address] All Cast Work Phone: Start: 11-23-2021 Cardiovascular stres s test using pharmacologic stress agent Dr. All Cast Work Phone: Start: 11-22-2021 Plain chest X-ray Dr. Jaylene Cast Work Phone: Start: 11-10-2021 Plain chest X-ray Dr. Jaylene Cast Work Phone: Start: 10-30-2021 History of placement of stent for coronary artery disease 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 placement Dr. All Cast Work Phone: Comment on above: PCI-SOFYA to Mid LCX w / 3 x 18 mm Orsiro Stent and SOFYA-MID LAD w/ 3 x 15 mm Orsiro Stent 10/30/2021 Start: 09-11-2021 Ct heart no contrast quant eval coronry calcium Lucho Vo DO Work Phone: Start: 02-13-2021 GLOMERULAR FILTRATION RATE Tosha Nunez Morenita RUBBER PRODUCTION MACHINE OPERATOR Work Phone: Start: 02-13-2021 Hepatic function panel Tosha Xavier RUBBER PRODUCTION MACHINE OPERATOR Work Phone: Start: 02-13-2021 Renal function panel An luana Xavier RUBBER PRODUCTION MACHINE OPERATOR Work Phone: Start: 07-19-2020 Assay of blood/uric acid Tosha Xavier Work Phone: Start: 07-19-2020 Assay of phosphorus inorganic Tosha Xavier Work Phone: Start: 07-19-2020 Bilirubin direct Tosha Xavier Work Phone: Start: 07-19-2020 CBC WITH DIFFERENTIAL A jasmyn Xavier Work Phone: Start: 07-19-2020 Comprehensive metabo lic panel Tosha Xavier Work Phone: Start: 07-19-2020 GLOMERULAR FILTRATION RATE Tosha Xavier Work Phone: Start: 07-19-2020 Rheumatoid factor quantitative Tosha Xavier Work Phone: Start: 07-19-2020 Sedimentation rate r bc automated Tosha Xavier Work Phone: Start: 02-11-2020 Assay of free thyroxine Mohammad Cristopher Work Phone: Start: 02-11-2020 Assay of thyroid stimulating hormone tsh Mohyu Cristopher Work Phone: Start: 05-20-2019 XR Chest PA and late ral upright Tosha Xavier Work Phone: Start: 05-20-2019 Standard ECG Tosha Crandall haas Work Phone: Start: 05-20-2019 Assay of phosphorus inorganic Tosha Xavier Work Phone: Start: 05-20-2019 Assay of thyroid stimulating hormone tsh Tosha Xavier Work Phone: Start: 05-20-2019 Bilirubin direct Tosha Xavier Work Phone: Start: 05-20-2019 CBC WITH DIFFERENTIAL A jasmyn Xavire Work Phone: Start: 05-20-2019 Comprehensive metabo lic panel Tosha Xavier Work Phone: Start: 05-20-2019 GLOMERULAR FILTRATION RATE Tosha Xavier Work Phone: Start: 05-20-2019 Prothrombin time Tosha Xavier Work Phone: Start: 04-15-2019 Fibrin dgradj produc ts d-dimer quantitative Tosha Xavier Work Phone: Start: 04-15-2019 Assay of blood/uric acid Tosha Xavier Work Phone: Start: 04-15-2019 Assay of iron Tosha li Work Phone: Start: 04-15-2019 Assay of phosphorus inorganic Tosha Xavier Work Phone: Start: 04-15-2019 Bilirubin direct Tosha Xavier Work Phone: Start: 04-15-2019 C-reactive protein Tosha Xavier Work Phone: Start: 04-15-2019 CBC WITH DIFFERENTIAL A jasmyn Xavier Work Phone: Start: 04-15-2019 Comprehensive metabo lic panel Tosha Xavier Work Phone: Start: 04-15-2019 GLOMERULAR FILTRATION RATE Tosha Xavier Work Phone: Start: 04-15-2019 Hemoglobin A1c/Hemoglobin.total in Blood Tosha Xavier Work Phone: Start: 04-15-2019 Rheumatoid factor quantitative Tosha Xavier Work Phone: Start: 04-15-2019 Sedimentation rate r bc automated Tosha Xavier Work Phone: Start: 11-20-2017 End: 11-20-2017 Tte w/doppler, complete External Transcr ibed Start: 02-13-2013 Mammography Tosha knight Viral antigen assay RECREATION FACILITY ATTENDANT-C Junie Xavier RECREATION FACILITY ATTENDANT Work Phone: Plan of Treatment Date Care Activity Detail Author Start: 11-19-2029 Lipid panel Lipid Panel [facility] Start: 01-30-2029 Administration of diphtheria + tetanus + acellular pertussis vaccine DTAP/TDAP/TD VACCINE (2 - Tdap) [facility] Start: 01-30-2029 Diphtheria + pertussis + tetanus vaccine (product) DTAP/TDAP/TD VACCINE (2 - Tdap) [facility] Start: 01-30-2029 Tetanus, diphtheria and acellular pertussis vaccination TDAP/TD ADULT [facility] Start: 12-27-2025 End: 12-27-2025 Patient encounter procedure 12/27/2025 1:20 PM EDT Office Visit [address] [phone] Pollo Weeks MD [address] [place] [address] [facility] Start: 10-30-2025 Colonoscopy COLON CANCER SCREENING 10 YEAR COLONOSCOPY [facility] Start: 05-06-2025 Thyroid stimulating hormone measurement TSH Level [facility] Start: 04-28-2025 [facility] Start: 04-14-2025 [facility] Start: 03-29-2025 Influenza vaccination Influenza Vaccine (Season Ended) [facility] Start: 12-15-2024 Thyroid stimulating hormone measurement TSH Level [facility] Start: 12-10-2024 End: 12-10-2024 Patient encounter procedure [facility] Start: 10-15-2024 [facility] Start: 10-15-2024 Simple repair f/e/e/n/l/m 2.5cm/< RPR F/E/E/N/L/M 2.5 CM/< [facility] Start: 07-29-2024 Medicare Advantage Annual Wellness Visit Medicare Advantage Annual Wellness Visit [facility] Start: 05-11-2024 [facility] Start: 03-29-2024 COVID-19 Vaccine ( season) COVID-19 Vaccine ( season) [facility] Start: 2023 Blood chemistry [facility] Start: 2023 End: 2023 [facility] Start: 08-12-2023 [facility] Start: 08-12-2023 [facility] Start: 07-29-2023 Medicare Advantage Annual Wellness Visit Medicare Advantage Annual Wellness Visit [facility] Start: 04-09-2023 End: 04-09-2023 [facility] Start: 04-09-2023 Blood chemistry [facility] Start: 04-08-2023 End: 04-09-2023 [facility] Start: 04-08-2023 Application of intermittent pneumatic compression device [facility] Start: 04-08-2023 Following clinical pathway protocol [facility] Start: 04-08-2023 Assessment of risk of venous thromboembolism [facility] Start: 04-08-2023 Insertion of catheter into peripheral vein [facility] Start: 04-08-2023 Oxygen therapy [facility] Start: 04-08-2023 Providing care according to standard [facility] Start: 04-08-2023 Provision of activity privileges [facility] Start: 04-08-2023 Referral to gastroenterology service [facility] Start: 04-08-2023 Verification routine [facility] Start: 04-08-2023 Admission procedure [facility] Start: 04-04-2023 Thyroid stimulating hormone measurement TSH [facility] Start: 05-08-2022 Patient discharge [facility] Work Phone: Start: 05-08-2022 COVID-19 VACCINE (5 - Booster for Moderna series) COVID-19 VACCINE (5 - Booster for Moderna series) [facility] Start: 05-07-2022 Administration of blood product [facility] Work Phone: Start: 05-07-2022 Transfusion of red blood cells [facility] Work Phone: Start: 05-06-2022 Admission procedure [facility] Work Phone: Start: 05-06-2022 [facility] Work Phone: Start: 05-06-2022 Catheterization of vein [facility] Work Phone: Start: 05-05-2022 Application of intermittent pneumatic compression device [facility] Work Phone: Start: 05-05-2022 End: 05-05-2022 Following clinical pathway protocol [facility] Work Phone: Start: 05-05-2022 Assessment of risk of venous thromboembolism [facility] Work Phone: Start: 05-05-2022 Fall prevention [facility] Work Phone: Start: 05-05-2022 Insertion of catheter into peripheral vein [facility] Work Phone: Start: 05-05-2022 Introduction of urinary catheter [facility] Work Phone: Start: 05-05-2022 Measuring intake and output [facility] Work Phone: Start: 05-05-2022 Oxygen therapy [facility] Work Phone: Start: 05-05-2022 Providing care according to standard [facility] Work Phone: Start: 05-05-2022 Provision of activity privileges [facility] Work Phone: Start: 05-05-2022 Referral to gastroenterology service [facility] Work Phone: Start: 05-05-2022 Referral to service [facility] Work Phone: Start: 05-05-2022 [facility] Work Phone: Start: 05-05-2022 Admission procedure [facility] Work Phone: Start: 05-05-2022 Patient referral to dietitian [facility] Work Phone: Start: 03-29-2022 Influenza vaccination given INFLUENZA VACCINE (#1) [facility] Start: 02-08-2022 Troponin I measurement [facility] Work Phone: Start: 02-08-2022 [facility] Work Phone: Start: 11-23-2021 Patient discharge [facility] Work Phone: Start: 11-22-2021 [facility] Work Phone: Start: 11-22-2021 Catheterization of vein [facility] Work Phone: Start: 11-22-2021 Notification of physician [facility] Work Phone: Start: 11-22-2021 Oxygen therapy [facility] Work Phone: Start: 11-22-2021 Application of intermittent pneumatic compression device [facility] Work Phone: Start: 11-22-2021 Assessment of risk of venous thromboembolism [facility] Work Phone: Start: 11-22-2021 Insertion of catheter into peripheral vein [facility] Work Phone: Start: 11-22-2021 Measuring intake and output [facility] Work Phone: Start: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 Dr. Rudolph Smith MD Attending Provider Active Start: February 09, 2025 End: February 09, 2025 Maura Mercado , RECREATION FACILITY ATTENDANT-C Primary Care Provider Active Start: February 09, 2025 End: February 09, 2025 Team Status: Inactive Member Role/Relationship Status Dates Maura Mercado , RECREATION FACILITY ATTENDANT-C Primary Care Provider Active Start: March 02, 2025 End: March 02, 2025 Dr. Rudolph Smith MD Attending Provider Active Start: March 02, 2025 End: March 02, 2025 Dr. 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 Specialty Diagnoses / Procedures Referred By Contalethea t Referred To Contact Diagnoses Syncope, unspecified syncope type Chest pain, unspecified type Procedures .. Berry Ott MD [address] [place] [address] Phone: tel: fax: [facility]U [address] [place] [id number] Phone: tel: Referral ID Status Reason Start Date Expiration Date Visits Re quested Visits Authorized [id number] 1 1 Reason Comments 1 Year Follow-up Scheduled Active and Recently Administ ered Medications (unrecognized section and content) Medication Order 11/17/2024 11/18/2024 11/19/2024 aspirin chewable tablet 324 mg (COMPLETED) 324 mg, Oral, Once, On Sat11/18/24 at 1140, For 1 dose 1239 (Given - Provider: Kailey Charlton RN) aspirin EC tablet 81 mg 81 mg, Oral, Daily, First dose on Sat11/19/24 at 0900, Do NOT administer if bleed present on follow up CT-Head. Do not crush, chew, or split. 0808 (Given - Provid er: Indigo Craft, CUONG) atorvastatin (Lipitor) tablet 40 mg 40 mg, Oral, Nightly, First dose on Sat11/18/24 at 2100 2042 (Given - Provider: Rodriguez Ornelas RN) bumetanide (Bumex) tablet 1 mg 1 mg, Oral, Every other day, First dose on Sat11/19/24 at 0900 0808 (Given - Provid er: Indigo Craft RN) enoxaparin (Lovenox) syringe 40 mg 40 mg, SubCUTAneous, Every 24 hours scheduled (Daily), First dose on Sat11/19/24 at 0900, Indication of Use: Prophylaxis-DVT/PE, Indications: Prophylaxis of Venous Thromboembolism 0808 (Given - Provid er: Indigo Cratf RN) isosorbide mononitrate ER (Imdur) 24 hr tablet 30 mg 30 mg, Oral, 2 times daily, First dose on Sat11/18/24 at 2100, Do not chew or crush ER tablets; may be divided in half. Due to insoluble matrix embedding, ER tablets that are scored may be split., On hold since Sat11/18/2024 at 1928 until manually unheld 1927 (Held by provider - Provider: Berry Ott MD - Reason: Change in vital signs)2100 (Dose Auto Held) 09 (Dose Auto Held)1949 (Unheld by provider - Provider: Automatic Discharge Provider) levothyroxine (Synthroid, Levoxyl) tablet 25 mcg 25 mcg, Oral, Daily before breakfast, First dose on Sat11/19/24 at 0600, Tube feeding (TF) interaction, obtain physician order to manage, recommend holding TF for 30 minutes before and after dose. 623 (Given - Provid er: Alanis Johnson RN) metoprolol succinate XL (Toprol-XL) 24 hr tablet 12.5 mg 12.5 mg, Oral, Daily, First dose on Sat11/18/24 at 1930, Do not crush or chew., On hold since Sat11/18/2024 at 1928 until manually unheld 1927 (Held by provider - Provider: Berry Ott MD - Reason: Change in vital signs)0 (Dose Auto Held) 0900 (Dose Auto Held)1949 (Unheld by provider - Provider: Automatic Discharge Provider) pantoprazole (ProtoNix) EC tablet 40 mg 40 mg, Oral, Daily before breakfast, First dose on Sat11/19/24 at 0600, Substituted for esomeprazole (Nexium). Do not crush, chew, or split. 623 (Given - Provid er: Alanis Johnson RN) Continuous Medication Order 11/17/2024 11/18/2024 11/19/2024 sodium chloride 0.9 % infusion 50 mL/hr, IntraVENous, Continuous, Starting on Sat11/18/24 at 1740 1920 (New Bag - Provider: Rodriguez Ornelas RN) PRN Medication Order 11/17/2024 11/18/2024 11/19/2024 acetaminophen (Tylenol) suppository 650 mg(Linked Group 1) 650 mg, Rectal, Every 6 hours PRN, fever, For temp greater than 100.4 F (38 C), Starting on Sat11/18/24 at 1734, Administer if oral route cannot be used. Maximum dose of acetaminophen is 4000 mg from all sources in 24 hours. acetaminophen (Tylenol) tablet 650 mg(Linked Group 1) 650 mg, Oral, Every 6 hours PRN, mild pain (1-3), fever, For temp greater than 100.4 F (38 C), Starting on Sat11/18/24 at 1734, Maximum dose of acetaminophen is 4000 mg from all sources in 24 hours. bisacodyl (Dulcolax) suppository 10 mg 10 mg, Rectal, Daily PRN, constipation, Starting on Sat11/18/24 at 1734, 2nd line for treatment of constipation - give scheduled (in addition to 1st line agent) if no bowel movement in past 48 hours iopamidol (Isovue-370) 76 % injection 100 mL (COMPLETED) 100 mL, IntraVENous, IMG once PRN, contrast, Starting on Janna 11/19/24 at 1356, For 1 dose 1406 (Given - Provid er: Eric Ramirez, RT (R)) labetalol (Normodyne,Trandate) injection 10 mg 10 mg, IntraVENous, Every 10 min PRN, high blood pressure, Starting on Sat11/18/24 at 1734, Administer 10 mg IV every 10 minutes if SBP is 220 mmHg or greater OR DBP is 120 mmHg or greater. Notify provider if SBP is 220 mmHg or greater OR DBP is 120 mmHg or greater after 3 consecutive doses. ondansetron (Zofran) injection 4 mg(Linked Group 2) 4 mg, IntraVENous, Every 6 hours PRN, nausea, vomiting, Starting on Sat11/18/24 at 1734, 1st Line. Give IV if patient is unable to take orally. If inadequate response within 60 minutes, proceed to next-line agent or contact provider if no further options ordered. ondansetron ODT (Zofran-ODT) disintegrating tablet 4 mg(Linked Group 2) 4 mg, Oral, Every 8 hours PRN, nausea, vomiting, Starting on Sat11/18/24 at 1734, 1st Line. If inadequate response within 60 minutes, proceed to next-line agent or contact provider if no further options ordered. Patient should allow tablet to dissolve on tongue. Do not remove from blister pack until just before administering. polyethylene glycol (PEG) 3350 (Miralax) packet 17 g 17 g, Oral, Daily PRN, constipation, Starting on Sat11/18/24 at 1734, 1st line for treatment of constipation - give scheduled if no bowel movement in past 24 hours. Linked Groups Order Group 1: acetaminophen (Tylenol) tablet 650 mgJump to med 650 mg, Oral, Every 6 hours PRN, mild pain (1-3), fever, For temp greater than 100.4 F (38 C), Starting on Sat11/18/24 at 1734, Maximum dose of acetaminophen is 4000 mg from all sources in 24 hours. Or acetaminophen (Tylenol) suppository 650 mgJump to med 650 mg, Rectal, Every 6 hours PRN, fever, For temp greater than 100.4 F (38 C), Starting on Sat11/18/24 at 1734, Administer if oral route cannot be used. Maximum dose of acetaminophen is 4000 mg from all sources in 24 hours. Group 2: ondansetron ODT (Zofran-ODT) disintegrating tablet 4 mgJump to med 4 mg, Oral, Every 8 hours PRN, nausea, vomiting, Starting on Sat11/18/24 at 1734, 1st Line. If inadequate response within 60 minutes, proceed to next-line agent or contact provider if no further options ordered. Patient should allow tablet to dissolve on tongue. Do not remove from blister pack until just before administering. Or ondansetron (Zofran) injection 4 mgJump to med 4 mg, IntraVENous, Every 6 hours PRN, nausea, vomiting, Starting on Sat11/18/24 at 1734, 1st Line. Give IV if patient is unable to take orally. If inadequate response within 60 minutes, proceed to next-line agent or contact provider if no further options ordered. FOR RECORDS PERTAINING TO PATIENTS WHO ARE [...] BE BASED ON THE PRIMARY CLINICAL RECORDS. [employer] [facility]. provides no warranty or guarantee of the accuracy or completeness of information in this document.
--- OUTSIDE RECORDS SUMMARY | 2025-04-29 23:11 | XMS RPT_ITS | CCD ---
Author Organization [facility] Care Team Providers Care [place] Repairer Name Role Phone Tosha Xavier Unavailable KARINA DARNELL Unavailable Unavailable KARINA DARNELL Unavailable Unavailable TOSHA XAVIER Unavailable Unavailable TOSHA XAVIER Unavailable Unavailable REHAN HAIRSTON Unavailable UnavailREHAN Mireles Unavailable UnavailTOSHA Morfin Unavailable Unavailable Efren Atwood Unavailable [phone] Vielka Nicholas Unavailable Tosha Xavier Primary Care Provider Tosha Xavier Primary Care Provider [phone] Tosha Xavier Primary Care Provider Efren Atwood MD Unavailable [phone] Vielka Nicholas MD Unavailable Tosha Xavier CNP Primary Care Provider Tosha Xavier CNP Primary Care Provider Efren Atwood MD Unavailable [phone] Vielka Nicholas MD Unavailable Bret Kirby MD Unavailable Dr. All Cast Attending Provider [phone] [facility] Doctor, Out of Primary Care Provider Naeem back [facility] Doctor, Out of Referring Provider Unavailab chidi Xavier RUBBER CALENDER HELPER, RUBBER CALENDER HELPER-C Tosha Primary Care Provider Dr. All Cast Other Provider Dr. Rachael Reed Attending Provider Dr. All Cast Admit Provider Dr. Linwood Rg Attending Provider Dr. All Cast Referring Provider Purkey RUBBER CALENDER HELPER, RUBBER CALENDER HELPER-C Tosha Referring Provider Dr. Isac Interiano Attending Provider Dr. Olinda Kramer Emergency Provider Dr. Joan Davison Admit Provider Dr. Joan Davison Other Provider Mihai THAKUR, RUBBER CALENDER HELPER-C Diana Attending Provider Dr. Linwood Rg Other Provider Jose, Dr. Shipman Attending Provider Dr. Jduie Mishra Other Provider Dr. Judie Mishra Attending Provider Dr. All Cast Attending Provider Dr. Joan Davison Attending Provider Dr. Judie Mishra Referring Provider PALOMA Denton Attending Provider PALOMA Denton Referring Provider PALOMA Denton Other Provider Efren Atwood MD Unavailable Cristopher ANDERSON, Vielka Unavailable Bret Kirby MD Unavailable Morenita MACIEL, Tosha Nunez Primary Care Provider Purkey RUBBER CALENDER HELPER, RUBBER CALENDER HELPER-C Tosha Primary Care Provider Purkey RUBBER CALENDER HELPER, RUBBER CALENDER HELPER-C Tosha Referring Provider Dr. All Cast Attending Provider Dr. All Cast Referring Provider Dr. All Cast Other Provider Roof RUBBER CALENDER HELPER, RUBBER CALENDER HELPER-C Lyudmila H Attending Provider Purkey RUBBER CALENDER HELPER, RUBBER CALENDER HELPER-C Tosha Primary Care Provider Purkey RUBBER CALENDER HELPER, RUBBER CALENDER HELPER-C Tosha Referring Provider PALOMA Denton Attending Provider MD Fred Norton Emergency Provider Dr. Joan Davison Attending Provider Dr. Joan Davison Admit Provider Dr. Joan Davison Other Provider Dr. Jennifer Bernard Attending Provider Dr. Jennifer Bernard Other Provider Jose, Dr. Shipman Attending Provider Dr. Eloisa Delgado Attending Provider Dr. Eloisa Delgado Other Provider Purkey RUBBER CALENDER HELPER, RUBBER CALENDER HELPER-C Tosha Primary Care Provider PALOMA Denton Referring Provider PALOMA Denton Other Provider Dr. All Cast Attending Provider Dr. All Cast Referring Provider Dr. All Cast Other Provider Roof RUBBER CALENDER HELPER, RUBBER CALENDER HELPER-C Lyudmila H Attending Provider Purkey RUBBER CALENDER HELPER, RUBBER CALENDER HELPER-C Tosha Referring Provider PALOMA Denton Attending Provider [...] Admitting Unavailable PROVIDER, UNKNOWN Consulting Unavailable Morenita RUBBER CALENDER HELPER, RUBBER CALENDER HELPER-C Tosha Primary Care Provider Morenita RUBBER CALENDER HELPER, RUBBER CALENDER HELPER-C Tosha Referring Provider Johnny RUBBER CALENDER HELPER, RUBBER CALENDER HELPER-C Lyudmila Herrera Attending Provider Morenita RUBBER CALENDER HELPER, RUBBER CALENDER HELPER-C Tosha Primary Care Provider Morenita RUBBER CALENDER HELPER, RUBBER CALENDER HELPER-C Tosha Referring Provider Tyrone RUBBER CALENDER HELPER, RUBBER CALENDER HELPER-C Pat Attending Provider Morenita RUBBER CALENDER HELPER, RUBBER CALENDER HELPER-C Tosha Primary Care Provider Morenita RUBBER CALENDER HELPER, RUBBER CALENDER HELPER-C Tosha Referring Provider Tyrone RUBBER CALENDER HELPER, RUBBER CALENDER HELPER-C Pat Attending Provider Morenita JINN - JANELL, Tosha Primary Care Provider [phone] Carolyn MIX, Michele Unavailable Unavailable Carolyn MIX, Michele Unavailable Unavailable MAURA MERCADO Primary Care Unavailable DIANA MORALES APRN Consulting Unavailabl e MORALES DIGITAL MEDIA DIRECTOR~[id number], JOVANI Nunez Attending Unavailable MORALES DIGITAL MEDIA DIRECTOR~[id number], JOVANI Nunez Admitting Unavailable MORALES DIGITAL MEDIA DIRECTOR, DIANA M Consulting Unavailabl e JESS, MAURA Consulting Unavailable JESS, MAURA Consulting Unavailable MORALES DIGITAL MEDIA DIRECTOR~[id number], JOVANI Nunez Attending Unavailable MORALES DIGITAL MEDIA DIRECTOR~[id number], JOVANI VALENCIA M Admitting Unavailable JESS, MAURA Primary Care Unavailable MORALES DIGITAL MEDIA DIRECTOR, DIANA M Consulting Unavailabl e MORALES DIGITAL MEDIA DIRECTOR, DIANA M Consulting Unavailabl e JESS, MAURA Consulting Unavailable JESS, MAURA Consulting Unavailable JESS, MAURA Consulting Unavailable JESS, MAURA Primary Care Unavailable MORALES DIGITAL MEDIA DIRECTOR~[id number], JOVANI Nunez Attending Unavailable MORALES DIGITAL MEDIA DIRECTOR~[id number], JOVANI ROMEOSSICA M Admitting Unavailable JESS, MAURA Consulting Unavailable Pat THAKUR, Alysia Sage Attending Unavailable TIFFANI OSBORN MD Admitting Unavailable TIFFANI OSBORN MD Attending Unavailable TIFFANI OSBORN MD Primary Care Unavailable DENIS CABALLERO JR Admitting Unavailable DENIS CABALLERO JR Attending Unavailable DENIS CABALLERO JR Primary Care Unavailable PURKEY, TOSHA APPLIER Consulting Unavailable PURKEY, TOSHA JOSE Referring Unavailable PROVIDER, UNKNOWN Consulting Unavailable PURKEY, TOSHA APPLIER Admitting Unavailable PURKEY, TOSHA APPLIER Attending Unavailable PURKEY, TOSHA APPLIER Primary Care Unavailable PURKEY, TOSHA APPLIER Consulting Unavailable PROVIDER, UNKNOWN Consulting Unavailable JESS RUBBER CALENDER HELPER, MAURA Primary Care Provider Dr. Souleymane Keys MD Emergency Provider [phone] Unavailable Primary Care Provider UnavailPOLLO Huang Attending Unavailable MELITA, LOS Admitting Unavailable MELITA, LOS Attending Unavailable MORENITA TOSHA Primary Care Unavailable Dr. Souleymane Keys MD Attending Provider Republic RUBBER CALENDER HELPER-C, Maura Primary Care Provider Republic RUBBER CALENDER HELPER-C, Maura Referring Provider Segun ANDERSON, Dr. Carrizales Attending Provider [phone] Jess RUBBER CALENDER HELPER-C, Maura Attending Provider Pursamina RUBBER CALENDER HELPER-C, Tosha Referring Provider Sarah ANDERSON, Dr. Galdamez Attending Provider Dr. Rudolph Smith MD Referring Provider Baddour, Rudolph Referring Unavailable Jess, Maura Primary Care Unavailable Baddour, Rudolph Attending Unavailable Republic, Maura Primary Care Unavailable Jess, Maura Attending Unavailable Republic, Maura Referring Unavailable Baddour, Rudolph Referring Unavailable Republic, Maura Primary Care Unavailable Baddour, Rudolph Attending Unavailable Purkey, Tosha Referring Unavailable Segun, All Attending Unavailable RANDALL, DIANA Primary Care Unavailable Segun, All Attending Unavailable Jess, Maura Primary Care Unavailable Jess, Maura Referring Unavailable Baddour, Rudolph Consulting Unavailable Jess, Maura Primary Care Unavailable Ahmad, Arsal Attending Unavailable Baddour, Rudolph Referring Unavailable Purkey, Tosha Referring Unavailable Republic, Maura Primary Care Unavailable Baddour, Rudolph Attending Unavailable RANDALL, DIANA Primary Care Unavailable Keys, Souleymane Attending Unavailable Baddour, Rudolph Attending Unavailable Republic, Maura Primary Care Unavailable Baddour, Rudolph Referring Unavailable SMILO, LYUDMILA Referring Unavailable SMILO, LYUDMILA Attending Unavailable Allergies Allergy Classification Reported Allergen(s) Allergy Type Date of Onset Reaction(s) Facility Opioid Agonists (2 sources) Codeine Drug Allergy 1 Nausea And Vomiting [facility] Penicillins (antibiotic) (2 sources) Penicillins Drug Allergy 1 Hives [facility] Unclassified (2 sources) Bee Propensity to adverse reactions to drug 1 [facility] (20 sources) codeine; 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: [CODEINE] Propensity to adverse reactions to drug 1 GI Intolerance, Nausea And Vomiting, Hives, Swelling [facility] (20 sources) Penicillins; 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: [PENICILLINS] Propensity to adverse reactions to drug 1 Hives [facility] (11 sources) Bee Propensity to adverse reactions to drug 1 [facility] (6 sources) Penicillins Propensity to adverse reactions to drug 1 Hives [facility] (1 source) Penicillins Propensity to adverse reactions to drug 1 Hives [facility] (2 sources) Codeine Drug Allergy [facility] (2 sources) Penicillin Drug Allergy [facility] (2 sources) Penicillins Drug allergy (disorder) [facility] (6 sources) Isosorbide Drug Allergy 4 Dizzy, nausea, headache [facility] (4 sources) bee venom Allergy to substance 4 Swelling [facility] (4 sources) Isosorbide Drug Allergy 4 [facility] (4 sources) Penicillins Drug Intolerance 1 Hives, Rash [facility] (1 source) Codeine Drug Allergy 5 [facility] (1 source) Isosorbide Drug Allergy 5 [facility] (1 source) Penicillins Drug allergy (disorder) 5 [facility] Medications Current Medications Medication Drug Class(es) Dates [...] 02-09-2025 take 1 capsule by mo [facility] once daily Duloxetine 60 mg capsule,delayed [...] cleanup) docusate sodium 50 mg / sennosides, longterm 8.6 mg oral tablet (17 sources) Start: [...] IntraVENous, IMG once PRN, contrast, Starting on [facility] 11/19/24 at 1356, For 1 dose 24 [...] mg by mouth daily. 0 Active Pnv,Calcium 72-Bqef-Dptwb Ac id ( Vitamin Plus Low Iron) 27 mg iron- 1 mg tablet (11 sources) Start: 05-05-2022 End: 04-07-2023 Pnv,Calcium 57-Rvpe-Gyrme Ac id ( Vitamin Plus Low Iron) 27 mg iron- 1 mg tablet Discontinued 1 {tbl} PO DAILY May 05, 2022 12:00am April 07, 2023 11:01pm vitamin Start: 05-05-2022 End: 04-07-2023 Pnv,Calcium 04-Uupc-Ojkub Ac id ( Vitamin Plus Low Iron) 27 mg iron- 1 mg tablet Discontinued 1 {tbl} PO DAILY May 05, 2022 12:00am April 07, 2023 11:01pm Start: 05-05-2022 End: 04-07-2023 take 1 tablet by mouth once daily Pnv,Calcium 33-Glxc-Uxgza Acid ( Vitamin Plus Low Iron) 27 mg iron- 1 mg tablet Discontinued 1 TABLET PO DAILY May 04, 2022 11:00pm April 07, 2023 10:01pm Start: 05-05-2022 End: 04-07-2023 take 1 tablet by mouth once daily Pnv,Calcium 97-Atve-Znaef Acid ( Vitamin Plus Low Iron) 27 mg iron- 1 mg tablet Discontinued 1 TABLET PO DAILY May 05, 2022 12:00am April 07, 2023 11:01pm Start: 05-05-2022 take 1 tablet by cruz th once daily Pnv,Calcium 86-Eygk-Otuom Acid ( Vitamin Plus Low Iron) 27 mg iron- 1 mg tablet Active 1 TABLET PO DAILY May 04, 2022 11:00pm Start: 05-05-2022 take 1 tablet by cruz th once daily Pnv,Calcium 01-Woab-Hutsn Acid ( Vitamin Plus Low Iron) 27 mg iron- 1 mg tablet Active 1 TABLET PO DAILY May 05, 2022 12:00am polyethylene glycol 3350 97654 mg powder for oral solution (2 sources) [...] sources) Long-term current use of anticoagulant; 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] 09-05-2022 Episodic Other aftercare (3 sources) [facility] (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; 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: [Long-term (current) [...] and/or EMG Patienton NCS and/or EMG Patient [facility] Pulmonary Services/Neurology [address] [place] [address] MR#: [id number] Acct: [id number] Name: BRANDIE KISER Rep #: [id number] : 1935 89 From: Parvez Macario MD Referring Dr: Rudolph Smith MD Status: REG CL I Location: [facility] Date: 04/14/25 Sex: F C NCS and/or [...] Multi Select Codes Neurology Neurology Interp Codes: 14767-29 Musc test done w/n test comp (interp) (2) and 39514-27 Nrv cndj test 9-10 studies (interp) 04/14/25 1335 Date Parvez Macario MD CC: MILTON Mercado; Dr. Parvez Macario MD; Dr. Rudolph Smith MD Date Dictated: 04/14/251331 Date Transcribed: 04/14/251331 Crnp: AA Signed Normal [facility] [place] Lambda Light Chainson 03-07-2025 FR KAPPA LT CHN 15.5 mg/L Normal 3.3-19.4 [facility] Comment on above: Order Comment: Test( s) 973433-Nzb. B1, Whole Blood was developed and its performance characteristics determined by [facility]. It has not been cleared or approved by the Food and Drug Administration. Performed By: #### L 500.4050, L3130.0010, L100.0500, L503.0106, L3300.0960, L3300.8000, L501.9520, L506.0400 #### [facility] [address] [place], [address] FR LAMBDA LT CH 18.1 mg/L Normal 5.7-26.3 [facility] Comment on above: Order Comment: Test( s) 185518-Ktk. B1, Whole Blood was developed and its performance characteristics determined by [facility]. It has not been cleared or approved by the Food and Drug Administration. Performed By: #### L 500.4050, L3130.0010, L100.0500, L503.0106, L3300.0960, L3300.8000, L501.9520, L506.0400 #### [facility] [address] [place], [place], [id number] KAPPA/LAMBDA % 0.86 Normal 0.26-1.65 [facility] Comment on above: Order Comment: Test( s) 365279-Hkv. B1, Whole Blood was developed and its performance characteristics determined by [facility]. It has not been cleared or approved by the Food and Drug Administration. Performed By: #### L 500.4050, L3130.0010, L100.0500, L503.0106, L3300.0960, L3300.8000, L501.9520, L506.0400 #### [facility] [address] [place], [place], [id number] Vitamin B1, Thiamineon 03-07 VIT B1 THIAMINE 131.8 nmol/L Normal 66.5-200.0 [facility] Comment on above: Order Comment: Test( s) 188897-Srr. B1, Whole Bloodwas developed and its performance characteristicsdetermined by [facility]. It has not been cleared or approvedby the Food and Drug Administration. Result Comment: Perf ormed at: [address] [id number] Biosecurity Officer: Brenton Boyle PhD, Phone: [phone] Performed at: [address] [id number] Biosecurity Officer: Yesi Lieberman MD, Phone: [phone] Performed By: #### L 500.4050, L3130.0010, L100.0500, L503.0106, L3300.0960, L3300.8000, L501.9520, L506.0400 ####[facility] [address] [place], [place], [address] Vitamin D 1,25-Dihydroxyon 0 03-05-2025 VIT D 1,25 DIHY 60.7 pg/mL Normal 24.8-81.5 [facility] Comment on above: Result Comment: Perf ormed at: BN - [facility] [address] [id number] Biosecurity Officer: Yesi Lieberman MD, Phone: [phone] Performed By: #### L 500.4050, L3130.0010, L100.0500, L503.0106, L3300.0960, L3300.8000, L501.9520, L506.0400 #### [facility] [address] [place], [place], [id number] (920) Anion gap in Serum or Plasma Ordered By: Rudolph Smith on 03-02-2025 Anion gap [Moles/Vol] 10 mmol/L 5-15 [facility] BUN/creatinine ratioOrdered By: Rudolph Smith on 03-02-2025 Urea nitrogen/Creatinine [Mass ratio] 8.4 mg/mg Low 10-20 [facility] Bilirubin, totalOrdered By: Rudolph Smith on 03-02-2025 Bilirubin [Mass/Vol] 0.75 mg/dL 0.00-1.[address] [facility] CBC-Complete Blood Cnt No Di ffon 03-02-2025 Erythrocyte distribution width (RBC) [Ratio] 13.7 % Normal 11.6-14.6 [facility] Comment on above: Performed By: #### L 500.4050, L3130.0010, L100.0500, L503.0106, L3300.0960, L3300.8000, L501.9520, L506.0400 #### [facility] [address], [address] Hematocrit (Bld) [Volume fraction] 46.2 % Normal 37-47 [facility] Comment on above: Performed By: #### L 500.4050, L3130.0010, L100.0500, L503.0106, L3300.0960, L3300.8000, L501.9520, L506.0400 #### [facility] [address] [place], [address] Hemoglobin (Bld) [Mass/Vol] 14.5 g/dL Normal 12.0-15.0 [facility] Comment on above: Performed By: #### L 500.4050, L3130.0010, L100.0500, L503.0106, L3300.0960, L3300.8000, L501.9520, L506.0400 #### [facility] [address] [place], [address] MCH (RBC) [Entitic mass] 27.7 pg Normal 27.0-32.0 [facility] Comment on above: Performed By: #### L 500.4050, L3130.0010, L100.0500, L503.0106, L3300.0960, L3300.8000, L501.9520, L506.0400 #### [facility] [address] [place], [address] MCHC (RBC) [Mass/Vol] 31.4 g/dL Low 32-36 [facility] Comment on above: Performed By: #### L 500.4050, L3130.0010, L100.0500, L503.0106, L3300.0960, L3300.8000, L501.9520, L506.0400 #### [facility] [address] [place], [address] MCV (RBC) [Entitic vol] 88.2 fL Normal 81-99 [facility] Comment on above: Performed By: #### L 500.4050, L3130.0010, L100.0500, L503.0106, L3300.0960, L3300.8000, L501.9520, L506.0400 #### [facility] [address] [place], [address] Platelet mean volume (Bld) [Entitic vol] 10.5 fL Normal 6.2-12.0 [facility] Comment on above: Performed By: #### L 500.4050, L3130.0010, L100.0500, L503.0106, L3300.0960, L3300.8000, L501.9520, L506.0400 #### [facility] [address] [place], [address] Platelets (Bld) [#/Vol] 200 10*3/uL Normal 150-450 [facility] Comment on above: Performed By: #### L 500.4050, L3130.0010, L100.0500, L503.0106, L3300.0960, L3300.8000, L501.9520, L506.0400 #### [facility] [address] [place], [address] RBC (Bld) [#/Vol] 5.24 10*6/uL Normal 4.2-5.4 [facility] Comment on above: Performed By: #### L 500.4050, L3130.0010, L100.0500, L503.0106, L3300.0960, L3300.8000, L501.9520, L506.0400 #### [facility] [address] [place], [address] RDW SD 44.3 fl High 35.1-43.9 [facility] Comment on above: Performed By: #### L 500.4050, L3130.0010, L100.0500, L503.0106, L3300.0960, L3300.8000, L501.9520, L506.0400 #### [facility] [address] [place], [address] WBC (Bld) [#/Vol] 5.9 10*3/uL Normal 4.4-11.0 [facility] Comment on above: Performed By: #### L 500.4050, L3130.0010, L100.0500, L503.0106, L3300.0960, L3300.8000, L501.9520, L506.0400 #### [facility] [address] [place], [address] Carbon dioxide, total [Moles /volume] in Central venous bloodOrdered By: Rudolph Smith on 03-02-2025 CO2 [Moles/Vol] 26.4 mmol/L 21.0-32.0 [facility] Chloride assayOrdered By: Ra paola Smith on 03-02-2025 Chloride [Moles/Vol] 105 mmol/L 98-[address] [facility] Comprehensive Metabolic Prof ilon 03-02-2025 Albumin [Mass/Vol] 4.2 g/dL Normal 3.4-4.8 [facility] Comment on above: Performed By: #### L 500.4050, L3130.0010, L100.0500, L503.0106, L3300.0960, L3300.8000, L501.9520, L506.0400 #### [facility] [address] [place], [place], [address] Albumin/Globulin [Mass ratio] 1.7 {ratio} Normal 0.9-2.4 [facility] Comment on above: Performed By: #### L 500.4050, L3130.0010, L100.0500, L503.0106, L3300.0960, L3300.8000, L501.9520, L506.0400 #### [facility] [address] [place], [address] ALK PHOS 168 U/L High 35-104 [facility] Comment on above: Performed By: #### L 500.4050, L3130.0010, L100.0500, L503.0106, L3300.0960, L3300.8000, L501.9520, L506.0400 #### [facility] [address] [place], [address] ALT [Catalytic activity/Vol] 25 U/L Normal <=34 [facility] Comment on above: Performed By: #### L 500.4050, L3130.0010, L100.0500, L503.0106, L3300.0960, L3300.8000, L501.9520, L506.0400 #### [facility] [address] [place], [address] AST [Catalytic activity/Vol] 31 U/L Normal <=31 [facility] Comment on above: Performed By: #### L 500.4050, L3130.0010, L100.0500, L503.0106, L3300.0960, L3300.8000, L501.9520, L506.0400 #### [facility] [address] [place], [address] Bilirubin [Mass/Vol] 0.75 mg/dL Normal 0.00-1.[address] [facility] Comment on above: Performed By: #### L 500.4050, L3130.0010, L100.0500, L503.0106, L3300.0960, L3300.8000, L501.9520, L506.0400 #### [facility] [address] [place], [address] BUN/CRE 8.4 RATIO Low 10-20 [facility] Comment on above: Performed By: #### L 500.4050, L3130.0010, L100.0500, L503.0106, L3300.0960, L3300.8000, L501.9520, L506.0400 #### [facility] [address] [place], [address] Calcium [Mass/Vol] 9.3 mg/dL Normal 7.6-11.0 [facility] Comment on above: Performed By: #### L 500.4050, L3130.0010, L100.0500, L503.0106, L3300.0960, L3300.8000, L501.9520, L506.0400 #### [facility] [address] [place], [address] Chloride [Moles/Vol] 105 mmol/L Normal 98-[address] [facility] Comment on above: Performed By: #### L 500.4050, L3130.0010, L100.0500, L503.0106, L3300.0960, L3300.8000, L501.9520, L506.0400 #### [facility] [address] [place], [address] CO2 [Moles/Vol] 26.4 mmol/L Normal 21.0-32.0 [facility] Comment on above: Performed By: #### L 500.4050, L3130.0010, L100.0500, L503.0106, L3300.0960, L3300.8000, L501.9520, L506.0400 #### [facility] [address] [place], [address] Creatinine [Mass/Vol] 0.66 mg/dL Low 0.70-1.20 [facility] Comment on above: Performed By: #### L 500.4050, L3130.0010, L100.0500, L503.0106, L3300.0960, L3300.8000, L501.9520, L506.0400 #### [facility] [address] [place], [address] GAP 10 Normal 5-15 [facility] Comment on above: Performed By: #### L 500.4050, L3130.0010, L100.0500, L503.0106, L3300.0960, L3300.8000, L501.9520, L506.0400 #### [facility] [address] [place], [address] GFR/1.73 sq M.predicted among non-blacks MDRD (S/P/Bld) [Vol rate/Area] 85 mL/min/{1.73_m2} Normal >60 [facility] Comment on above: Result Comment: mL/m in/1.73m2 CKD-EPI Creatinine Equation (2020) Performed By: #### L 500.4050, L3130.0010, L100.0500, L503.0106, L3300.0960, L3300.8000, L501.9520, L506.0400 #### [facility] [address] [place], [address] Globulin (S) [Mass/Vol] 2.5 g/dL Normal 2.2-4.2 [facility] Comment on above: Performed By: #### L 500.4050, L3130.0010, L100.0500, L503.0106, L3300.0960, L3300.8000, L501.9520, L506.0400 #### [facility] [address] [place], [address] Glucose [Mass/Vol] 102 mg/dL High 70-99 [facility] Comment on above: Performed By: #### L 500.4050, L3130.0010, L100.0500, L503.0106, L3300.0960, L3300.8000, L501.9520, L506.0400 #### [facility] [address] [place], [address] Potassium [Moles/Vol] 4.4 mmol/L Normal 3.3-5.1 [facility] Comment on above: Performed By: #### L 500.4050, L3130.0010, L100.0500, L503.0106, L3300.0960, L3300.8000, L501.9520, L506.0400 #### [facility] [address] [place], [address] Sodium [Moles/Vol] 142 mmol/L Normal 133-145 [facility] Comment on above: Performed By: #### L 500.4050, L3130.0010, L100.0500, L503.0106, L3300.0960, L3300.8000, L501.9520, L506.0400 #### [facility] [address] [place], [place], [id number] T PROT 6.7 g/dL Normal 5.9-8.4 [facility] Comment on above: Performed By: #### L 500.4050, L3130.0010, L100.0500, L503.0106, L3300.0960, L3300.8000, L501.9520, L506.0400 #### [facility] [address] [facility] [place], [place], [id number] Urea nitrogen [Mass/Vol] 6 mg/dL Normal 4-19 [facility] Comment on above: Performed By: #### L 500.4050, L3130.0010, L100.0500, L503.0106, L3300.0960, L3300.8000, L501.9520, L506.0400 #### [facility] [address] [place], [address] Erythrocyte distribution wid th ratioOrdered By: Rudolph Smith on 03-02-2025 Erythrocyte distribution width (RBC) [Ratio] 13.7 % 11.6-14.6 [facility] Erythrocyte distribution wid th standard deviationOrdered By: Rudolph Smith on 03-02-2025 Erythrocyte distribution width (RBC) [Ratio] 44.3 fl High 35.1-43.9 [facility] Glomerular filtration rate ( GFR) estimation/1.73 sq m using serum, plasma, or whole bOrdered By: Rudolph Smith on 03-02-2025 GFR/1.73 sq M.predicted among non-blacks MDRD (S/P/Bld) [Vol rate/Area] 85 mL/min/{1.73_m2} >60 [facility] Comment on above: mL/min/1.73m2 CKD-EP I Creatinine Equation (2020) Hematocrit Auto (Bld) [Volum e fraction]Ordered By: Rudolph Smith on 03-02-2025 Hematocrit (Bld) [Volume fraction] 46.2 % 37-47 [facility] Hemoglobin measurementOrdere d By: Rudolph Smith on 03-02-2025 Hemoglobin (Bld) [Mass/Vol] 14.5 g/dL 12.0-15.0 [facility] - Chemistry and C hemistry - challengeOrdered By: Rudolph Smith on 03-02-2025 AST [Catalytic activity/Vol] 31 U/L <32 [facility] MCV (mean corpuscular volume ) determinationOrdered By: Rudolph Smith on 03-02-2025 MCV (RBC) [Entitic vol] 88.2 fL 81-99 [facility] Mean corpuscular hemoglobin (MCH) determinationOrdered By: Rudolph Smith on 03-02-2025 MCH (RBC) [Entitic mass] 27.7 pg 27.0-32.0 [facility] Mean corpuscular hemoglobin concentration (MCHC) determinationOrdered By: Rudolph Smith on 03-02-2025 MCHC (RBC) [Mass/Vol] 31.4 g/dL Low 32-36 [facility] Mean platelet volume determi nationOrdered By: Rudolph Smith on 03-02-2025 Platelet mean volume (Bld) [Entitic vol] 10.5 fL 6.2-12.0 [facility] Platelet countOrdered By: Ra paola Smith on 03-02-2025 Platelets (Bld) [#/Vol] 200 10*3/uL 150-450 [facility] Potassium measurement (mass/ volume)Ordered By: Rudolph Smith 03-02-2025 Potassium (Unsp spec) [Mass/Vol] 4.4 mmol/L 3.3-5.1 [facility] RBC Auto (Bld) [#/Vol]Ordere d By: Rudolph Smith on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 68966 #### [facility],[address] [place] [address] Anion gap [Moles/Vol] 9 mmol/L Low 10 - 20 [facility] Comment on above: Performed By: #### 2 72128 #### [place] [id number] BMP with eGFR Normal [facility] Comment on above: Result Comment: BASI C METABOLIC PANEL Performed By: #### 2 75936 #### [place] [address] Calcium [Mass/Vol] 8.0 mg/dL Low 8.5 - 10.1 [facility] Comment on above: Performed By: #### 2 41293 #### [facility],[address] [place] [address] Chloride [Moles/Vol] 101 mmol/L Normal 98 - 107 [facility] Comment on above: Performed By: #### 2 10464 #### [facility],[address] [place], [place] [address] CO2 [Moles/Vol] 26.6 mmol/L Normal 21.0 - 32.0 [facility] Comment on above: Performed By: #### 2 62101 #### [facility],[address] [place], [place] [address] Creatinine [Mass/Vol] 0.64 mg/dL Normal 0.55 - 1.02 [facility] Comment on above: Performed By: #### 2 49542 #### [facility],[address] [place] [address] GFR/1.73 sq M.predicted among non-blacks MDRD (S/P/Bld) [Vol rate/Area] mL/min/{1.73_m2} Normal 60 - 999 [facility] Comment on above: Performed By: #### 2 66386 #### [facility],[address] [place], [place] [address] Result Comment: ACCO RDING TO THE NATIONAL KIDNEY DISEASE EDUCATION PROGRAM(NKDE), A NORMAL eGFR IS A VALUE GREATER THAN OR EQUAL TO 60 ML/MIN/1.73 SQ METERS. CHRONIC KIDNEY DISEASE: <60mL/MIN/1.73 SQ METERS KIDNEY FAILURE: <15mL/MIN/1.73 SQ METERS THIS TEST SHOULD ONLY BE USED FOR PATIENTS 18 YEARS OF AGE AND OLDER. Glucose [Mass/Vol] 109 mg/dL High 74 - 106 [facility] Comment on above: Performed By: #### 2 42891 #### [facility],[address] [place] [address] Potassium [Moles/Vol] 4.1 mmol/L Normal 3.5 - 5.1 [facility] Comment on above: Performed By: #### 2 48131 #### [facility],[address] [place] [address] Sodium [Moles/Vol] 132 mmol/L Low 136 - 145 [facility] Comment on above: Performed By: #### 2 05725 #### [facility],[address] [place] [address] Urea nitrogen [Mass/Vol] 6 mg/dL Low 7 - 18 [facility] Comment on above: Performed By: #### 2 18306 #### [facility],[address] [place] [address] CBC + DIFFon 08-09-2024 Baso # 0.01 x10EE3/UL Normal 0.00 - 0.10 [facility] Comment on above: Performed By: #### 2 34365 #### [facility],[address] [place] [address] Basophils/100 WBC (Bld) 0.2 % Normal 0.0 - 2.0 [facility] Comment on above: Performed By: #### 2 08348 #### [facility],[address] [place] [address] CBC + DIFF Normal [facility] Comment on above: Result Comment: CBC- COMPLETE BLOOD COUNT Performed By: #### 2 45617 #### [facility],[address] [place] [address] EO # 0.21 x10EE3/UL Normal 0.00 - 0.50 [facility] Comment on above: Performed By: #### 2 60492 #### [facility],[address] [place] [address] Eosinophils/100 WBC (Bld) 5.7 % Normal 0.0 - 7.0 [facility] Comment on above: Performed By: #### 2 26242 #### [facility],[address] [place] [address] Erythrocyte distribution width (RBC) [Ratio] 13.9 % Normal 12.0 - 15.6 [facility] Comment on above: Performed By: #### 2 26147 #### [facility],[address] [place] [address] Hematocrit (Bld) [Volume fraction] 38.6 % Normal 34.0 - 46.0 [facility] Comment on above: Performed By: #### 2 88264 #### [facility],[address] [place] [address] Hemoglobin (Bld) [Mass/Vol] 12.9 g/dL Normal 12.0 - 16.0 [facility] Comment on above: Performed By: #### 2 65167 #### [facility],[address] [place] [address] Lymph # 1.50 x10EE3/UL Normal 0.80 - 2.80 [facility] Comment on above: Performed By: #### 2 38300 #### [facility],[address] [place] [address] Lymphocytes/100 WBC (Bld) 41.0 % Normal 20.0 - 45.0 [facility] Comment on above: Performed By: #### 2 56258 #### [facility],[address] [place] [address] MANUAL DIFF N/A Normal [facility] Comment on above: Performed By: #### 2 09707 #### [facility],[address] [place], [place] [id number] MCH (RBC) [Entitic mass] 28 pg Normal 27 - 33 [facility] Comment on above: Performed By: #### 2 83611 #### [facility],[address] [place], [place] [address] MCHC 33 X10 3 Normal 32 - 36 [facility] Comment on above: Performed By: #### 2 86097 #### [facility],[address] [place] [address] 70642 MCV (RBC) [Entitic vol] 84 fL Normal 80 - 99 [facility] Comment on above: Performed By: #### 2 51090 #### [facility],[address] [place] [address] 25992 [place] # 0.37 x10EE3/UL Normal 0.20 - 1.00 [facility] Comment on above: Performed By: #### 2 22481 #### [facility],[address] [place] [address] 98625 MONOS % 10.1 % High 0.0 - 10.0 [facility] Comment on above: Performed By: #### 2 70259 #### [facility],[address] [place] [address] 32852 Morphology Michael (Bld) [Interp] N/A Normal [facility] Comment on above: Performed By: #### 2 39419 #### [facility],[address] [place] [address] 03560 Neut # 1.58 x10EE3/UL Normal 1.50 - 7.10 [facility] Comment on above: Performed By: #### 2 87446 #### [facility],[address] [place] [address] 78767 Neutrophils/100 WBC (Bld) 43.0 % Low 46.0 - 76.0 [facility] Comment on above: Performed By: #### 2 03204 #### [facility],[address] [place] [address] 10528 PLATELET 156 x10EE3/UL Normal 150 - 450 [facility] Comment on above: Performed By: #### 2 79974 #### [facility],[address] [place] [address] 68729 Platelet mean volume (Bld) [Entitic vol] 8.2 fL Normal 6.6 - 10.5 [facility] Comment on above: Result Comment: AUTO MATED DIFFERENTIAL Performed By: #### 2 64611 #### [facility],[address] [place] [address] 91044 RBC 4.58 x 10EE6/UL Normal 4.10 - 5.30 [facility] Comment on above: Performed By: #### 2 88358 #### [facility],[address] [place] [address] 88132 WBC 3.7 x 10EE3/UL Low 4.5 - 10.8 [facility] Comment on above: Performed By: #### 2 14621 #### [facility],[address] [place] [address] 54574 LIPID PROFILEon 08-09-2024 Cholesterol [Mass/Vol] 106 mg/dL Normal 0 - 240 [facility] Comment on above: Performed By: #### 2 51337 #### [facility],[address] [place] [address] 43370 Cholesterol in HDL [Mass/Vol] 56 mg/dL Normal 40 - 60 [facility] Comment on above: Performed By: #### 2 88998 #### [facility],[address] [place] [address] 47964 Cholesterol in LDL [Mass/Vol] 34 mg/dL Normal 0 - 129 [facility] Comment on above: Performed By: #### 2 65071 #### [facility],[address] [place] [address] 01516 Cholesterol.total/Chol esterol in HDL [Mass ratio] 1.9 {ratio} Normal 0.0 - 5.0 [facility] Comment on above: Performed By: #### 2 07077 #### [facility],[address] [place] [address] 86899 Lipid 1996 panel Normal [facility] Comment on above: Result Comment: LIPI D PROFILE Performed By: #### 2 97614 #### [facility],[address] [place] [address] 97293 Triglyceride [Mass/Vol] 78 mg/dL Normal 0 - 150 [facility] Comment on above: Performed By: #### 2 42692 #### [facility],[address] [place] [address] TROPONIN I, HIGH SENSITIVITY on 08-09-2024 HS TROPONIN 6.9 pg/mL Normal 0.0 - 51.4 [facility] Comment on above: Performed By: #### 2 35941 #### [facility],[address] [place] [address] CBC + DIFFon 08-08-2024 Baso # 0.01 x10EE3/UL Normal 0.00 - 0.10 [facility] Comment on above: Performed By: #### 2 78029 #### [facility],[address] [place], [place] [address] Basophils/100 WBC (Bld) 0.3 % Normal 0.0 - 2.0 [facility] Comment on above: Performed By: #### 2 93950 #### [facility],[address] [place] [address] CBC + DIFF Normal [facility] Comment on above: Result Comment: CBC- COMPLETE BLOOD COUNT Performed By: #### 2 72974 #### [facility],[address] [place] [address] EO # 0.13 x10EE3/UL Normal 0.00 - 0.50 [facility] Comment on above: Performed By: #### 2 71103 #### [facility],[address] [place], [place] [address] Eosinophils/100 WBC (Bld) 3.5 % Normal 0.0 - 7.0 [facility] Comment on above: Performed By: #### 2 19380 #### [facility],[address] [place] [address] Erythrocyte distribution width (RBC) [Ratio] 13.9 % Normal 12.0 - 15.6 [facility] Comment on above: Performed By: #### 2 02046 #### [facility],[address] [place] [address] 75934 Hematocrit (Bld) [Volume fraction] 39.1 % Normal 34.0 - 46.0 [facility] Comment on above: Performed By: #### 2 82921 #### [facility],[address] [place] [address] 74914 Hemoglobin (Bld) [Mass/Vol] 13.1 g/dL Normal 12.0 - 16.0 [facility] Comment on above: Performed By: #### 2 49340 #### [facility],[address] [place] [address] 00219 Lymph # 1.14 x10EE3/UL Normal 0.80 - 2.80 [facility] Comment on above: Performed By: #### 2 31383 #### [facility],[address] [place], [place] [address] Lymphocytes/100 WBC (Bld) 30.4 % Normal 20.0 - 45.0 [facility] Comment on above: Performed By: #### 2 93977 #### [facility],[address] [place] [address] 01734 MANUAL DIFF N/A Normal [facility] Comment on above: Performed By: #### 2 83421 #### [facility],[address] [place] [address] 41193 MCH (RBC) [Entitic mass] 29 pg Normal 27 - 33 [facility] Comment on above: Performed By: #### 2 76643 #### [facility],[address] [place] [address] 65329 MCHC 34 X10 3 Normal 32 - 36 [facility] Comment on above: Performed By: #### 2 23387 #### [facility],[address] [place] [address] 07000 MCV (RBC) [Entitic vol] 86 fL Normal 80 - 99 [facility] Comment on above: Performed By: #### 2 20742 #### [facility],[address] [place] [address] 60969 [place] # 0.49 x10EE3/UL Normal 0.20 - 1.00 [facility] Comment on above: Performed By: #### 2 76256 #### [facility],[address] [place] [address] 11605 MONOS % 13.0 % High 0.0 - 10.0 [facility] Comment on above: Performed By: #### 2 46868 #### [facility],[address] [place] [address] Morphology Michael (Bld) [Interp] N/A Normal [facility] Comment on above: Performed By: #### 2 45868 #### [facility],[address] [place] [address] Neut # 1.98 x10EE3/UL Normal 1.50 - 7.10 [facility] Comment on above: Performed By: #### 2 75744 #### [facility],[address] [place] [address] Neutrophils/100 WBC (Bld) 52.7 % Normal 46.0 - 76.0 [facility] Comment on above: Performed By: #### 2 86495 #### [facility],[address] [place] [address] PLATELET 139 x10EE3/UL Low 150 - 450 [facility] Comment on above: Performed By: #### 2 88223 #### [facility],[address] [place] [address] Platelet mean volume (Bld) [Entitic vol] 8.1 fL Normal 6.6 - 10.5 [facility] Comment on above: Result Comment: AUTO MATED DIFFERENTIAL Performed By: #### 2 87128 #### [facility],[address] [place], [place] [address] RBC 4.57 x 10EE6/UL Normal 4.10 - 5.30 [facility] Comment on above: Performed By: #### 2 88866 #### [facility],[address] [place] [address] 51626 WBC 3.8 x 10EE3/UL Low 4.5 - 10.8 [facility] Comment on above: Performed By: #### 2 26492 #### [facility],[address] [place] [address] 86230 CMP with eGFRon 08-08-2024 AGE 88 years Normal [facility] Comment on above: Performed By: #### 2 55275 #### [facility],[address] [place] [address] 96264 Albumin [Mass/Vol] 2.9 g/dL Low 3.4 - 5.0 [facility] Comment on above: Performed By: #### 2 31374 #### [facility],[address] [place] [address] 02959 Albumin/Globulin [Mass ratio] 1.0 {ratio} Normal 0.9 - 1.6 [facility] Comment on above: Performed By: #### 2 06439 #### [facility],[address] [place] [address] 79927 ALK PHOS 348 U/L High 46 - 116 [facility] Comment on above: Performed By: #### 2 10214 #### [facility],[address] [place] [address] 73462 ALT [Catalytic activity/Vol] 137 U/L High 16 - 63 [facility] Comment on above: Performed By: #### 2 33823 #### [facility],[address] [place] [address] 89608 Anion gap [Moles/Vol] 11 mmol/L Normal 10 - 20 [facility] Comment on above: Performed By: #### 2 77146 #### [facility],[address] [place] [address] 54585 AST [Catalytic activity/Vol] 118 U/L High 13 - 39 [facility] Comment on above: Performed By: #### 2 18559 #### [facility],[address] [place] [address] 92679 B/C RATIO 12 ratio Normal 0 - 30 [facility] Comment on above: Performed By: #### 2 60174 #### [facility],[address] [place] [address] 97323 Bilirubin [Mass/Vol] 0.5 mg/dL Normal 0.2 - 1.0 [facility] Comment on above: Performed By: #### 2 41450 #### [facility],[address] [place] [address] 69309 Calcium [Mass/Vol] 8.1 mg/dL Low 8.5 - 10.1 [facility] Comment on above: Performed By: #### 2 33377 #### [facility],[address] [place] [address] 76944 Chloride [Moles/Vol] 102 mmol/L Normal 98 - 107 [facility] Comment on above: Performed By: #### 2 13872 #### [facility],[address] [place] [address] 21645 CMP with eGFR Normal [facility] Comment on above: Result Comment: COMP REHENSIVE METABOLIC PANEL Performed By: #### 2 90232 #### [facility],[address] [place] [address] 79445 CO2 [Moles/Vol] 25.7 mmol/L Normal 21.0 - 32.0 [facility] Comment on above: Performed By: #### 2 27537 #### [facility],[address] [place] [address] 50406 Creatinine [Mass/Vol] 0.65 mg/dL Normal 0.55 - 1.02 [facility] Comment on above: Performed By: #### 2 52589 #### [facility],[address] [place] [address] 67709 GFR/1.73 sq M.predicted among non-blacks MDRD (S/P/Bld) [Vol rate/Area] mL/min/{1.73_m2} Normal 60 - 999 [facility] Comment on above: Performed By: #### 2 03198 #### [facility],[address] [place] [address] 23126 Result Comment: ACCO RDING TO THE NATIONAL KIDNEY DISEASE EDUCATION PROGRAM(NKDE), A NORMAL eGFR IS A VALUE GREATER THAN OR EQUAL TO 60 ML/MIN/1.73 SQ METERS. CHRONIC KIDNEY DISEASE: <60mL/MIN/1.73 SQ METERS KIDNEY FAILURE: <15mL/MIN/1.73 SQ METERS THIS TEST SHOULD ONLY BE USED FOR PATIENTS 18 YEARS OF AGE AND OLDER. Globulin (S) [Mass/Vol] 2.9 g/dL Normal 1.5 - 3.8 [facility] Comment on above: Performed By: #### 2 20150 #### [address] [address] Glucose [Mass/Vol] 109 mg/dL High 74 - 106 [facility] Comment on above: Performed By: #### 2 99520 #### [address] [address] Potassium [Moles/Vol] 4.1 mmol/L Normal 3.5 - 5.1 [facility] Comment on above: Performed By: #### 2 72727 #### [facility],[address] [place] [address] 83808 Protein [Mass/Vol] 5.8 g/dL Low 6.4 - 8.2 [facility] Comment on above: Performed By: #### 2 85087 #### [address] [address] Sodium [Moles/Vol] 135 mmol/L Low 136 - 145 [facility] Comment on above: Performed By: #### 2 51025 #### [address] [address] Urea nitrogen [Mass/Vol] 8 mg/dL Normal 7 - 18 [facility] Comment on above: Performed By: #### 2 41009 #### [facility],[address] [place] [address] 95014 TROPONIN I, HIGH SENSITIVITY on 08-08-2024 HS TROPONIN 7.7 pg/mL Normal 0.0 - 51.4 [facility] Comment on above: Performed By: #### 2 89792 ####[facility],[address] [place] [address] 07816 HS TROPONIN 5.7 pg/mL Normal 0.0 - 51.4 [facility] Comment on above: Performed By: #### 2 92019 #### [facility],[address] [place] [address] 82641 CBC + DIFFon 08-07-2024 Baso # 0.00 x10EE3/UL Normal 0.00 - 0.10 [facility] Comment on above: Performed By: #### 2 22445 #### [facility],[address] [place] [address] 71283 Basophils/100 WBC (Bld) 0.1 % Normal 0.0 - 2.0 [facility] Comment on above: Performed By: #### 2 71672 #### [facility],[address] [place] [address] 48334 CBC + DIFF Normal [facility] Comment on above: Result Comment: CBC- COMPLETE BLOOD COUNT Performed By: #### 2 34486 #### [facility],[address] [place] [address] 92962 EO # 0.15 x10EE3/UL Normal 0.00 - 0.50 [facility] Comment on above: Performed By: #### 2 30786 #### [facility],[address] [place] [address] 21823 Eosinophils/100 WBC (Bld) 3.9 % Normal 0.0 - 7.0 [facility] Comment on above: Performed By: #### 2 58903 #### [facility],[address] [place], [place] [address] Erythrocyte distribution width (RBC) [Ratio] 14.1 % Normal 12.0 - 15.6 [facility] Comment on above: Performed By: #### 2 00730 #### [facility],[address] [place] [address] Hematocrit (Bld) [Volume fraction] 41.0 % Normal 34.0 - 46.0 [facility] Comment on above: Performed By: #### 2 66408 #### [facility],[address] [place] [address] Hemoglobin (Bld) [Mass/Vol] 13.6 g/dL Normal 12.0 - 16.0 [facility] Comment on above: Performed By: #### 2 00055 #### [facility],[address] [place] [address] Lymph # 0.61 x10EE3/UL Low 0.80 - 2.80 [facility] Comment on above: Performed By: #### 2 83523 #### [facility],[address] [place], [place] [address] Lymphocytes/100 WBC (Bld) 15.6 % Low 20.0 - 45.0 [facility] Comment on above: Performed By: #### 2 53659 #### [facility],[address] [place], [place] [address] MANUAL DIFF N/A Normal [facility] Comment on above: Performed By: #### 2 88288 #### [facility],[address] [place] [address] 43310 MCH (RBC) [Entitic mass] 28 pg Normal 27 - 33 [facility] Comment on above: Performed By: #### 2 50538 #### [facility],[address] [place] [address] 12264 MCHC 33 X10 3 Normal 32 - 36 [facility] Comment on above: Performed By: #### 2 99323 #### [facility],[address] [place] [address] 11091 MCV (RBC) [Entitic vol] 84 fL Normal 80 - 99 [facility] Comment on above: Performed By: #### 2 19273 #### [facility],[address] [place] [address] 16180 [place] # 0.36 x10EE3/UL Normal 0.20 - 1.00 [facility] Comment on above: Performed By: #### 2 55286 #### [facility],[address] [place] [address] 45930 MONOS % 9.3 % Normal 0.0 - 10.0 [facility] Comment on above: Performed By: #### 2 89216 #### [facility],[address] [place] [address] Morphology Michael (Bld) [Interp] N/A Normal [facility] Comment on above: Performed By: #### 2 79723 #### [facility],[address] [place] [address] 58239 Neut # 2.78 x10EE3/UL Normal 1.50 - 7.10 [facility] Comment on above: Performed By: #### 2 82119 #### [facility],[address] [place] [address] 71725 Neutrophils/100 WBC (Bld) 71.1 % Normal 46.0 - 76.0 [facility] Comment on above: Performed By: #### 2 39488 #### [facility],[address] [place] [address] 25057 PLATELET 146 x10EE3/UL Low 150 - 450 [facility] Comment on above: Performed By: #### 2 75367 #### [facility],[address] [place] [address] 32897 Platelet mean volume (Bld) [Entitic vol] 8.0 fL Normal 6.6 - 10.5 [facility] Comment on above: Result Comment: AUTO MATED DIFFERENTIAL Performed By: #### 2 13793 #### [facility],[address] [place] [address] 06129 RBC 4.88 x 10EE6/UL Normal 4.10 - 5.30 [facility] Comment on above: Performed By: #### 2 42819 #### [facility],[address] [place] [address] 09957 WBC 3.9 x 10EE3/UL Low 4.5 - 10.8 [facility] Comment on above: Performed By: #### 2 77584 #### [facility],[address] [place] [address] 43753 CMP with eGFRon 08-07-2024 AGE 88 years Normal [facility] Comment on above: Performed By: #### 2 65593 #### [facility],[address] [place] [address] 89300 Albumin [Mass/Vol] 3.4 g/dL Normal 3.4 - 5.0 [facility] Comment on above: Performed By: #### 2 57811 #### [facility],[address] [place] [address] 93698 Albumin/Globulin [Mass ratio] 1.2 {ratio} Normal 0.9 - 1.6 [facility] Comment on above: Performed By: #### 2 09476 #### [facility],[address] [place] [address] 46449 ALK PHOS 287 U/L High 46 - 116 [facility] Comment on above: Performed By: #### 2 01786 #### [facility],[address] [place] [address] 76067 ALT [Catalytic activity/Vol] 97 U/L High 16 - 63 [facility] Comment on above: Performed By: #### 2 82584 #### [facility],[address] [place] [address] 90405 Anion gap [Moles/Vol] 13 mmol/L Normal 10 - 20 [facility] Comment on above: Performed By: #### 2 82278 #### [facility],[address] [place] [address] 13936 AST [Catalytic activity/Vol] 89 U/L High 13 - 39 [facility] Comment on above: Performed By: #### 2 12966 #### [facility],[address] [place] [address] 26343 B/C RATIO 8 ratio Normal 0 - 30 [facility] Comment on above: Performed By: #### 2 66943 #### [facility],[address] [place] [address] 80959 Bilirubin [Mass/Vol] 0.8 mg/dL Normal 0.2 - 1.0 [facility] Comment on above: Performed By: #### 2 32208 #### [facility],[address] [place] [address] 49223 Calcium [Mass/Vol] 8.5 mg/dL Normal 8.5 - 10.1 [facility] Comment on above: Performed By: #### 2 60729 #### [facility],[address] [place] [address] 23876 Chloride [Moles/Vol] 100 mmol/L Normal 98 - 107 [facility] Comment on above: Performed By: #### 2 94860 #### [facility],[address] [place] [address] 04341 CMP with eGFR Normal [facility] Comment on above: Result Comment: COMP REHENSIVE METABOLIC PANEL Performed By: #### 2 39158 #### [facility],[address] [place] [address] 48460 CO2 [Moles/Vol] 26.7 mmol/L Normal 21.0 - 32.0 [facility] Comment on above: Performed By: #### 2 69487 #### [facility],[address] [place] [address] 77234 Creatinine [Mass/Vol] 0.93 mg/dL Normal 0.55 - 1.02 [facility] Comment on above: Performed By: #### 2 29717 #### [facility],[address] [place] [address] 54109 eGFR 57 ML/MINUTE Low 60 - 999 [facility] Comment on above: Performed By: #### 2 56442 #### [facility],[address] [place] [address] 57798 GFR/1.73 sq M.predicted among non-blacks MDRD (S/P/Bld) [Vol rate/Area] mL/min/{1.73_m2} Normal 60 - 999 [facility] Comment on above: Result Comment: ACCO RDING TO THE NATIONAL KIDNEY DISEASE EDUCATION PROGRAM(NKDE), A NORMAL eGFR IS A VALUE GREATER THAN OR EQUAL TO 60 ML/MIN/1.73 SQ METERS. CHRONIC KIDNEY DISEASE: <60mL/MIN/1.73 SQ METERS KIDNEY FAILURE: <15mL/MIN/1.73 SQ METERS THIS TEST SHOULD ONLY BE USED FOR PATIENTS 18 YEARS OF AGE AND OLDER. Performed By: #### 2 05444 #### [facility],[address] [place] [address] 63751 Globulin (S) [Mass/Vol] 2.9 g/dL Normal 1.5 - 3.8 [facility] Comment on above: Performed By: #### 2 11016 #### [facility],[address] [place] [address] 96064 Glucose [Mass/Vol] 109 mg/dL High 74 - 106 [facility] Comment on above: Performed By: #### 2 72061 #### [facility],[address] [place] [address] 52981 Potassium [Moles/Vol] 4.6 mmol/L Normal 3.5 - 5.1 [facility] Comment on above: Performed By: #### 2 94690 #### [facility],[address] [place] [address] 73241 Protein [Mass/Vol] 6.3 g/dL Low 6.4 - 8.2 [facility] Comment on above: Performed By: #### 2 10420 #### [facility],[address] [place] [address] 95502 Sodium [Moles/Vol] 135 mmol/L Low 136 - 145 [facility] Comment on above: Performed By: #### 2 85838 #### [facility],[address] [place] [address] 47060 Urea nitrogen [Mass/Vol] 7 mg/dL Normal 7 - 18 [facility] Comment on above: Performed By: #### 2 36004 #### [facility],[address] [place] [address] 86757 CORONAVIRUS (SARS) ANTIGEN T ESTon 08-07-2024 EXTERNAL QC DONE? YES Normal [facility] Comment on above: Performed By: #### 2 34640 ####[facility],[address] [place] [address] 73589 INTERNAL CONTROL PASS Normal [facility] Comment on above: Performed By: #### 2 54681 ####[facility],[address] [place] [address] 19089 SARS ANTIGEN Negative Normal NORMAL: NEGATIVE [facility] Comment on above: Performed By: #### 2 47004 ####[facility],[address] [place] [address] 02421 SEND TO ? NO Normal [facility] Comment on above: Result Comment: SARS -CoV-2 THIS TEST IS BEING USED UNDER THE FDA EUA PROCEDURE. THIS ASSAY HAS BEEN VALIDATED AT [facility] FOR USE WITH NASAL AND NASOPHARYNGEAL [...] PUBLIC HEALTH AUTHORITIES. Performed By: #### 2 08408 ####[place] [address] CT CHEST (PE PROTOCOL)on CT CHEST (PE PROTOCOL) [place] [address] Patient: BRANDIE KISER Phone#: : [phone] Age: 88 Gender: F Pt. Type: ER Account: [id number] Location: [facility] Ordering: QUANG SALAS Exam Date: 08/07/2024/11:41 Family Phys: Charge Code: 912516 Physician: [place] Order #: [id number] Dose#: [id number] PROCEDURE: CT CHEST WITH CONTRAST [...] is no evidence of focal parenchymal abnormality. [place] [address] Patient: BRANDIE KISER Phone#: : [phone] Age: 88 Gender: F Pt. Type: ER Account: [id number] Location: [facility] Ordering: QUANG SALAS Exam Date: 08/07/2024/11:41 Family Phys: Charge Code: [id number] Physician: [place] Order #: [id number] Dose#: [id number] Dictated by: Rayna Kinney MD on 08/07/2024 at 12:24 Approved by: Rayna Kinney MD on 08/07/2024 at 12:29 Normal [facility] ED MED ADMINISTRATION DETAIL on 08-07-2024 ED MED ADMINISTRATION DETAIL Medical Lab Assistant Medication Administration Record [address] [address] [id number] 08/07/2024 Patient: BRANDIE KISER Sex: Female : [...] (NOW x1) Scanned 1 of 1 Normal [facility] ED NURSES CLINICAL NOTEon ED NURSES CLINICAL NOTE Nurse Narrative Nurse Clinical [address] [place] [address] [id number] 08/07/2024 [id number] Sex: Female : 1935 Age: 88y Disposition: Admit to [facility] Disposition Decision Time: 12:55 08/07/2024 Departure Time: [...] SURGERIES: C (more content not included)... Normal [facility] ED ORDER SHEET (CPOE ONLY)on 08-07-2024 ED ORDER SHEET (CPOE ONLY) Order Sheet Order Sheet [address] [place] [address] [id number] 08/07/2024 Patient: BRANDIE KISER Sex: Female : [...] 08/07/2024 Bc Turner R.N. Kobe Miller, R.N. D.ODaivd DIAGNOSTIC STUDY ORDERS 2 of 3 Order [...] Bc Turner R.N. Kobe Miller, R.N. D.O. [employer] 10:34 08/07/2024 10:41 08/07/2024 10:46 08/07/2024 Bc Turner R.N. Kobe Miller, R.N. D.O. Oxygen titrate to 92% 10:34 08/07/2024 10:41 08/07/2024 10:46 08/07/2024 Bc Turner R.N. Kobe Miller, R.N. D.O. [Electronically signed by Quang Salas D.O. (08/07/2024 18:24 EST)] 3 of 3 Normal [facility] ED PHYSICIAN CLINICAL REPORT on 08-07-2024 ED PHYSICIAN CLINICAL REPORT Narrative Physician Clinical Narrative [address] [address] [id number] 08/07/2024 Patient: BRANDIE KISER Sex: Female : 1935 Age: 88y Disposition: Admit to [facility] Disposition Decision Time: 12:55 08/07/2024 Departure Time: [...] Final Below (more content not included)... Normal [facility] 08-07-2024 ED SUPER BILL Superbill [address] [address] [id number] 08/07/2024 Patient: BRANDIE KISER Sex: Female : 1935 Age: 88y Facility Professional Category Item Description Code Code Quantity Fee Total Nurse/E/M EMERGENCY 296062 1 $0.00 $0.00 DEPT VISIT HIGH SEVERITYFUNCJ (53308-46) Nurse/IV/IM/Infusions Drip/IVPB 390694 2 $0.00 $0.00 additional hour (12243) Nurse/IV/IM/Infusions Drip/IVPB initial 812563 1 $0.00 $0.00 (10720) Nurse/IV/IM/Infusions Hydration 829158 1 $0.00 $0.00 additional hour (17022) Nurse/Procedures Respiratory 372641 1 $0.00 $0.00 therapy - inhalation (41651) Grand $0.00 Total Providers Quang Salas D.O. 1 of 2 [facility] Chief Complaint FEVER and NOT FEELING WELL. Principal Diagnosis Cellulitis of the left lower leg. Probable hypoxia. ICD-10 Codes L03.116: Cellulitis of left lower limb 2 of 2 Normal [facility] ED VISIT SUMMARYon ED VISIT SUMMARY Visit Overview Visit Overview [address] [address] [id number] 08/07/2024 Patient: BRANDIE KISER Sex: Female : [...] FAILURE PROBABLE HYPOXIA 4 of 4 Normal [facility] ED VITALS FLOW SHEETon 08-07 ED VITALS FLOW SHEET Vitals Vital Sign Flow Sheet [address] [place] [address] [id number] 08/07/2024 Patient: BRANDIE KISER Sex: Female : [...] 08/07/2024 81 85% 4 of 4 Normal [facility] INFLUENZA VIRUS RAPID A/Bon 08-07-2024 INFLUENZA [...] TO THREE DAYS. RESULT CRITICAL? NO Normal [facility] Comment on above: Performed By: #### 2 47542 ####[facility],[address] [place] [address] LACTATEon 08-07-2024 Lactate [Moles/Vol] 1.1 mmol/L Normal 0.4 - 2.0 [facility] Comment on above: Performed By: #### 2 20365 #### [facility],[address] [place] [address] TROPONINon 08-07-2024 HS TROPONIN 7.3 pg/mL Normal 0.0 - 51.4 [facility] Comment on above: Performed By: #### 2 81155 #### [facility],[address] [place] [address] CBC + DIFFon 08-02-2024 Baso # 0.04 x10EE3/UL Normal 0.00 - 0.10 [facility] Comment on above: Performed By: #### 2 89259 #### [facility],[address] [place], [place] [address] Basophils/100 WBC (Bld) 0.6 % Normal 0.0 - 2.0 [facility] Comment on above: Performed By: #### 2 33678 #### [facility],[address] [place] [address] CBC + DIFF Normal [facility] Comment on above: Result Comment: CBC- COMPLETE BLOOD COUNT Performed By: #### 2 85037 #### [facility],[address] [place] [address] EO # 0.32 x10EE3/UL Normal 0.00 - 0.50 [facility] Comment on above: Performed By: #### 2 78831 #### [facility],[address] [place] [address] 57787 Eosinophils/100 WBC (Bld) 4.6 % Normal 0.0 - 7.0 [facility] Comment on above: Performed By: #### 2 66555 #### [facility],[address] [place] [address] Erythrocyte distribution width (RBC) [Ratio] 14.2 % Normal 12.0 - 15.6 [facility] Comment on above: Performed By: #### 2 99733 #### [facility],[address] [place] [address]594 Hematocrit (Bld) [Volume fraction] 45.6 % Normal 34.0 - 46.0 [facility] Comment on above: Performed By: #### 2 49495 #### [facility],[address] [place] [address]6744 Hemoglobin (Bld) [Mass/Vol] 15.0 g/dL Normal 12.0 - 16.0 [facility] Comment on above: Performed By: #### 2 63229 #### [facility],[address] [place], [place] [address] Lymph # 1.98 x10EE3/UL Normal 0.80 - 2.80 [facility] Comment on above: Performed By: #### 2 49183 #### [facility],[address] [place], [place] [address] Lymphocytes/100 WBC (Bld) 28.3 % Normal 20.0 - 45.0 [facility] Comment on above: Performed By: #### 2 80521 #### [facility],[address] [place] [address] MANUAL DIFF N/A Normal [facility] Comment on above: Performed By: #### 2 04777 #### [facility],[address] [place] [address] 29985 MCH (RBC) [Entitic mass] 28 pg Normal 27 - 33 [facility] Comment on above: Performed By: #### 2 50198 #### [facility],[address] [place] [address] 37533 MCHC 33 X10 3 Normal 32 - 36 [facility] Comment on above: Performed By: #### 2 48435 #### [facility],[address] [place] [address] 48811 MCV (RBC) [Entitic vol] 85 fL Normal 80 - 99 [facility] Comment on above: Performed By: #### 2 26325 #### [facility],[address] [place] [address]60 [place] # 0.51 x10EE3/UL Normal 0.20 - 1.00 [facility] Comment on above: Performed By: #### 2 63339 #### [facility],[address] [place] [address] 77861 MONOS % 7.2 % Normal 0.0 - 10.0 [facility] Comment on above: Performed By: #### 2 58769 #### [facility],[address] [place] [address]293 Morphology Michael (Bld) [Interp] N/A Normal [facility] Comment on above: Performed By: #### 2 69235 #### [facility],[address] [place] [address] 14608 Neut # 4.14 x10EE3/UL Normal 1.50 - 7.10 [facility] Comment on above: Performed By: #### 2 96230 #### [facility],[address] [place] [address]6935 Neutrophils/100 WBC (Bld) 59.3 % Normal 46.0 - 76.0 [facility] Comment on above: Performed By: #### 2 17407 #### [facility],[address] [place] [address] 14601 PLATELET 203 x10EE3/UL Normal 150 - 450 [facility] Comment on above: Performed By: #### 2 60805 #### [facility],[address] [place] [address] 39709 Platelet mean volume (Bld) [Entitic vol] 7.7 fL Normal 6.6 - 10.5 [facility] Comment on above: Result Comment: AUTO MATED DIFFERENTIAL Performed By: #### 2 73402 #### [facility],[address] [place] [address] 19482 RBC 5.38 x 10EE6/UL High 4.10 - 5.30 [facility] Comment on above: Performed By: #### 2 45157 #### [facility],[address] [place] [address] 88715 WBC 7.0 x 10EE3/UL Normal 4.5 - 10.8 [facility] Comment on above: Performed By: #### 2 84050 #### [facility],[address] [place] [address] 32821 CMP with eGFRon 08-02-2024 AGE 88 years Normal [facility] Comment on above: Performed By: #### 2 87495 #### [facility],[address] [place] [address] 12423 Albumin [Mass/Vol] 3.5 g/dL Normal 3.4 - 5.0 [facility] Comment on above: Performed By: #### 2 54719 #### [facility],[address] [place] [address] 69995 Albumin/Globulin [Mass ratio] 1.1 {ratio} Normal 0.9 - 1.6 [facility] Comment on above: Performed By: #### 2 65152 #### [facility],[address] [place] [address] 32269 ALK PHOS 170 U/L High 46 - 116 [facility] Comment on above: Performed By: #### 2 07023 #### [facility],[address] [place] [address] 70973 ALT [Catalytic activity/Vol] 23 U/L Normal 16 - 63 [facility] Comment on above: Performed By: #### 2 44391 #### [facility],[address] [place] [address] 64355 Anion gap [Moles/Vol] 12 mmol/L Normal 10 - 20 [facility] Comment on above: Performed By: #### 2 26713 #### [facility],[address] [place] [address] 72235 AST [Catalytic activity/Vol] 25 U/L Normal 13 - 39 [facility] Comment on above: Performed By: #### 2 32034 #### [facility],[address] [place] [address] 65910 B/C RATIO 10 ratio Normal 0 - 30 [facility] Comment on above: Performed By: #### 2 46038 #### [facility],[address] [place] [address] 94990 Bilirubin [Mass/Vol] 0.9 mg/dL Normal 0.2 - 1.0 [facility] Comment on above: Performed By: #### 2 31549 #### [facility],[address] [place] [address] 58668 Calcium [Mass/Vol] 8.9 mg/dL Normal 8.5 - 10.1 [facility] Comment on above: Performed By: #### 2 72282 #### [facility],[address] [place] [address] 75867 Chloride [Moles/Vol] 104 mmol/L Normal 98 - 107 [facility] Comment on above: Performed By: #### 2 82051 #### [facility],[address] [place] [address] 00813 CMP with eGFR Normal [facility] Comment on above: Result Comment: COMP REHENSIVE METABOLIC PANEL Performed By: #### 2 54671 #### [facility],[address] [place] [address] 22953 CO2 [Moles/Vol] 26.7 mmol/L Normal 21.0 - 32.0 [facility] Comment on above: Performed By: #### 2 15676 #### [facility],[address] [place] [address] 84165 Creatinine [Mass/Vol] 0.70 mg/dL Normal 0.55 - 1.02 [facility] Comment on above: Performed By: #### 2 23888 #### [facility],[address] [place] [address] 34641 GFR/1.73 sq M.predicted among non-blacks MDRD (S/P/Bld) [Vol rate/Area] mL/min/{1.73_m2} Normal 60 - 999 [facility] Comment on above: Performed By: #### 2 10390 #### [facility],[address] [place] [address] Result Comment: ACCO RDING TO THE NATIONAL KIDNEY DISEASE EDUCATION PROGRAM(NKDE), A NORMAL eGFR IS A VALUE GREATER THAN OR EQUAL TO 60 ML/MIN/1.73 SQ METERS. CHRONIC KIDNEY DISEASE: <60mL/MIN/1.73 SQ METERS KIDNEY FAILURE: <15mL/MIN/1.73 SQ METERS THIS TEST SHOULD ONLY BE USED FOR PATIENTS 18 YEARS OF AGE AND OLDER. Globulin (S) [Mass/Vol] 3.1 g/dL Normal 1.5 - 3.8 [facility] Comment on above: Performed By: #### 2 20313 #### [address] [address] Glucose [Mass/Vol] 108 mg/dL High 74 - 106 [facility] Comment on above: Performed By: #### 2 49548 #### [facility],[address] [place] [address] 03460 Potassium [Moles/Vol] 3.9 mmol/L Normal 3.5 - 5.1 [facility] Comment on above: Performed By: #### 2 69263 #### [facility],[address] [place] [address] 90951 Protein [Mass/Vol] 6.6 g/dL Normal 6.4 - 8.2 [facility] Comment on above: Performed By: #### 2 31089 #### [facility],[address] [place] [address] 36666 Sodium [Moles/Vol] 139 mmol/L Normal 136 - 145 [facility] Comment on above: Performed By: #### 2 17143 #### [facility],[address] [place] [address] 09848 Urea nitrogen [Mass/Vol] 7 mg/dL Normal 7 - 18 [facility] Comment on above: Performed By: #### 2 30062 #### [facility],[address] [place] [address] TIB/FIB C+ LTon CT TIB/FIB C+ LT [address] [address] Patient: BRANDIE KISER Phone#: : 1935 Age: 88 Gender: F Pt. Type: ER Account: [id number] Location: [id number] Ordering: DENIS CABALLERO Exam Date: 08/02/2024/10:41 Family Phys: TOSHA XAVIER Charge Code: 673301 Physician: [place] Order #: [id number] Dose#: 14.4 mGy PROCEDURE: CT TIB FIB [...] Kinney MD on 08/02/2024 at 11:22 Normal [facility] ED MED ADMINISTRATION DETAIL on 08-02-2024 ED MED ADMINISTRATION DETAIL Medical Lab Assistant Medication Administration Record [address] [place] [address] [id number] 08/02/2024 Patient: BRANDIE KISER Sex: Female : 1935 Age: 88y MEASUREMENTS: Wt: 65.8 kg, Ht/Martínez: 62.0 in, BMI: 26.52 ALLERGIES: Penicillins, codeine Medication Ordered Medication Administration Date/Time 1 of 1 Normal [facility] ED NURSES CLINICAL NOTEon ED NURSES CLINICAL NOTE Nurse Narrative Nurse Clinical [address] [address] [id number] 08/02/2024 Patient: BRANDIE KISER Sex: Female : [...] Ackerman R.N. Problems: Hypothyroidism -- 09:35 08/02/24 HERMES Ackerman R.N. Squamous cell carcinoma of leg -- 09:35 08/02/24 Rodrigue Frazier.N. 09:32 08/02/24. Preferred pharmacy ([facility]). -- 09:37 08/02/24 HERMES Ackerman R.N. [...] calf, started a topical treatment from the sap payroll consultant on 05/29. Pt states treatment last five [...] NOTES 0 (more content not included)... Normal [facility] ED ORDER SHEET (CPOE ONLY)on 08-02-2024 ED ORDER SHEET (CPOE ONLY) Order Sheet Order Sheet [place] [address] [place] [address] [id number] 08/02/2024 Patient: BRANDIE KISER Sex: Female : [...] (08/02/2024 11:41 EST)] 2 of 2 Normal [facility] ED PHYSICIAN CLINICAL REPORT on 08-02-2024 ED PHYSICIAN CLINICAL REPORT Narrative Physician Clinical Narrative [facility] [address] [place] [address] [id number] 08/02/2024 Patient: BRANDIE KISER Sex: Female : [...] 1.50 - 7.10 Final EST 08/02/2024 10:09 [place] # 0.51 x10/UL 0.20 - 1.00 Final [...] 10:28 ES (more content not included)... Normal [facility] ED SUPER BILLon 08-02-2024 ED SUPER BILL [facility] [address] [place] [address] [id number] 08/02/2024 Patient: BRANDIE KISER Sex: Female : 1935 Age: 88y Item Professional Category Description Facility Code Code Quantity Fee Total Nurse/E/M EMERGENCY 323825 1 $0.00 $0.00 DEPARTMENT VISIT HIGH/URGENT SEVERITY (08432-42) Grand Total $0.00 Providers Denis Caballero D.O. Chief Complaint LOWER EXTREMITY PAIN and SWELLING. Principal Diagnosis Cellulitis of the left lower leg. ICD-10 Codes 1 of 2 Superbill L03.116: Cellulitis of left lower limb 2 of 2 Normal [facility] ED VISIT SUMMARYon ED VISIT SUMMARY Visit Overview Visit Overview [facility] [address] [place] [address] [id number] 08/02/2024 Patient: BRANDIE KISER Sex: Female : [...] calf, started a topical treatment from the sap payroll consultant on 05/29. Pt states treatment last five [...] THE LEFT LOWER LEG 3 of 3 [facility] ED VITALS FLOW SHEETon 08-02 ED VITALS FLOW SHEET Vitals Vital Sign Flow Sheet [address] [place] [address] [id number] 08/02/2024 Patient: BRANDIE KISER Sex: Female : 1935 Age: 88y Measurements Wt: 65.8 kg, Ht/Martínez: 62.0 in, BMI: 26.52 Measured Time BP MAP HR RR O2Sat ETCO2 Temp Pain GCS RTS 11:49 08/02/2024 140/73 95 81 14 94% RA 7 09:37 08/02/2024 159/91 114 82 16 94% RA 97.7 F 8 1 of 1 Normal [facility] BASIC METABOLIC PANELon 10-0 Anion gap [Moles/Vol] 1 mmol/L Low 8-12 [facility] Comment on above: Performed By: #### 4 8584463, 76489361, 26937643, 06537157, 69960119, 00582948 #### [facility] [address] [place], [place] [address] Calcium [Mass/Vol] 9.1 mg/dL Normal 8.4-10.4 [facility] Comment on above: Performed By: #### 4 0601179, 78964056, 30168504, 55102750, 21073539, 78010516 #### [facility] [address] [place] [address] Chloride [Moles/Vol] 108 mmol/L Normal 96-109 [facility] Comment on above: Performed By: #### 4 6976819, 85388271, 39972528, 05048744, 16979840, 72629781 #### [address] [place], [place] [address] CO2 [Moles/Vol] 30 mmol/L Normal 22-30 [facility] Comment on above: Performed By: #### 4 0031273, 69320600, 75478991, 99640754, 53373470, 16082666 #### [facility] [address] [place] [address] [facility] Creatinine [Mass/Vol] 0.67 mg/dL Normal 0.52-1.04 [facility] Comment on above: Performed By: #### 4 4836681, 91875441, 10340066, 37299632, 04480248, 57752472 #### [facility] [address] [place] [address] [facility] GLOMERULAR FILTRATION RATE ML/MIN/1.73 SQ M.PREDICTED 85.2 mL/min/1.73m*2 Normal >=60.0 [facility] Comment on above: Result Comment: eGFR calculation [...] Kidney Int Suppl.2013;3:1-150 Performed By: #### 4 9822197, 03539508, 65877887, 11637841, 19524361, 42146401 #### [facility] [address] Glucose [Mass/Vol] 127 mg/dL High 65-100 [facility] Comment on above: Performed By: #### 4 5128903, 48546775, 82481662, 36785925, 61169212, 78991816 #### [address] Potassium [Moles/Vol] 4.4 mmol/L Normal 3.6-5.1 [facility] Comment on above: Performed By: #### 4 8049311, 80347174, 37571876, 77992754, 51326294, 14053291 #### [address] Sodium [Moles/Vol] 139 mmol/L Normal 135-147 [facility] Comment on above: Performed By: #### 4 7343347, 20355073, 58798681, 85368515, 58983950, 88003143 #### [address] Urea nitrogen [Mass/Vol] 8 mg/dL Normal 8-26 [facility] Comment on above: Performed By: #### 4 4960706, 29733243, 72207228, 45450310, 16224894, 04590071 #### [address] CBC AND DIFFERENTIALon 05-06 ABSOLUTE BASOPHIL 0.0 x10*3/uL Normal 0.0-0.[address] [facility] Comment on above: Performed By: #### 4 4147723 #### [place] [address] [place] ABSOLUTE EOSINOPHIL 0.3 x10*3/uL Normal 0.1-0.3 [facility] Comment on above: Performed By: #### 4 0654566 #### [address] ABSOLUTE IMMATURE GRANULOCYTES 0.0 x10*3/uL Normal 0.0-0.1 [facility] Comment on above: Performed By: #### 4 6999986 #### [address] ABSOLUTE LYMPH 2.0 x10*3/uL Normal 1.2-3.3 [facility] Comment on above: Performed By: #### 4 3898649 #### [address] ABSOLUTE MONO 0.5 x10*3/uL Normal 0.2-0.6 [facility] Comment on above: Performed By: #### 4 3769770 #### [address] ABSOLUTE NEUTROPHIL 4.0 x10*3/uL Normal 2.4-6.6 [facility] Comment on above: Performed By: #### 4 2546931 #### [address] Basophils/100 WBC (Bld) 0.4 % Normal [facility] Comment on above: Performed By: #### 4 2023907 #### [address] Eosinophils/100 WBC (Bld) 4.4 % Normal [facility] Comment on above: Performed By: #### 4 0617650 #### [address] Erythrocyte distribution width (RBC) [Ratio] 14.6 % High 11.5-14.5 [facility] Comment on above: Performed By: #### 4 4916564 #### [address] Hematocrit (Bld) [Volume fraction] 48.3 % High 33.6-46.8 [facility] Comment on above: Performed By: #### 4 7246364 #### [address] Hemoglobin (Bld) [Mass/Vol] 14.8 g/dL Normal 11.7-15.8 [facility] Comment on above: Performed By: #### 4 5172778 #### [address] Immature granulocytes/100 WBC (Bld) 0.1 % Normal [facility] Comment on above: Performed By: #### 4 9342952 #### [address] Lymphocytes/100 WBC (Bld) 28.8 % Normal [facility] Comment on above: Performed By: #### 4 9177999 #### [address] MCH (RBC) [Entitic mass] 27.1 pg Low 27.5-32.3 [facility] Comment on above: Performed By: #### 4 8219527 #### [address] MCHC (RBC) [Mass/Vol] 30.6 g/dL Low 30.7-35.5 [facility] Comment on above: Performed By: #### 4 2135376 #### [address] MCV (RBC) [Entitic vol] 88.5 fL Normal 80.2-99 [facility] Comment on above: Performed By: #### 4 9499494 #### [address] Monocytes/100 WBC (Bld) 7.1 % Normal [facility] Comment on above: Performed By: #### 4 9277271 #### [address] Neutrophils/100 WBC (Bld) 59.2 % Normal [facility] Comment on above: Performed By: #### 4 7082675 #### [address] NUCLEATED RED BLOOD CELLS AUTO 0.0 % Normal 0.0-1.0 [facility] Comment on above: Performed By: #### 4 0343782 #### [address] PLATELET COUNT 164 x10*3/uL Normal 150-400 [facility] Comment on above: Performed By: #### 4 1308112 #### [address] RED BLOOD CELL COUNT 5.46 x10*6/uL High 3.60-5.20 [facility] Comment on above: Performed By: #### 4 6173348 #### [address] WHITE BLOOD CELLS 6.8 x10*3/uL Normal 4.3-10.[address] [facility] Comment on above: Performed By: #### 4 8454050 #### [address] HEMOGLOBIN A1Con 05-06-2024 HbA1c (Bld) [Mass fraction] 5.9 % High 4.8-5.6 [facility] Comment on above: Order Comment: Perfo rmed at: - [facility] [id number] Biosecurity Officer: Brenton Boyle PhD, Phone: [phone] Result Comment: Pred iabetes: 5.7 - 6.4 Diabetes: >6.4 Glycemic control for adults with diabetes: <7.0 Performed By: #### 4 6881776 #### [facility] [address] [place] [address] HEPATIC FUNCTION PANELon Albumin [Mass/Vol] 4.0 g/dL Normal 3.5-5.0 [facility] Comment on above: Performed By: #### 4 4889830, 85369546, 27004140, 40062010, 38645718, 85961874 #### [address] ALK PHOS 130 U/L High 24-126 [facility] Comment on above: Performed By: #### 4 4177714, 00684141, 55720121, 98802280, 84724902, 43781997 #### [address] ALT [Catalytic activity/Vol] 28 U/L Normal 4-35 [facility] Comment on above: Performed By: #### 4 9383981, 07194043, 68119100, 53099802, 43769068, 89190931 #### [facility] [address] [place] [address] AST [Catalytic activity/Vol] 37 U/L Normal 3-47 [facility] Comment on above: Performed By: #### 4 [id number], [id number], [id number], [id number], [id number], [id number] #### [address] Bilirubin [Mass/Vol] 1.3 mg/dL Normal 0.2-1.6 [facility] Comment on above: Performed By: #### 4 [id number], [id number], [id number], [id number], [id number], [id number] #### [address] Bilirubin.indirect [Mass/Vol] 0.4 mg/dL Normal <=0.5 [facility] Comment on above: Performed By: #### 4 [id number], [id number], [id number], [id number], [id number] #### [address] Protein [Mass/Vol] 6.6 g/dL Normal 6.3-8.2 [facility] Comment on above: Performed By: #### 4 [id number], [id number], [id number], [id number], [id number], [id number] #### [address] LIPID PANELon 05-06-2024 Cholesterol [Mass/Vol] 124 mg/dL Normal <=200 [facility] Comment on above: Performed By: #### 4 [id number], [id number], [id number], [id number], [id number], [id number] #### [address] Cholesterol in HDL [Mass/Vol] 57.0 mg/dL Normal 40.0-59.9 [facility] Comment on above: Performed By: #### 4 [id number], [id number], [id number], [id number], [id number], [id number] #### [address] LDL CHOLESTEROL CALCULATED 34 mg/dL Normal <=100 [facility] Comment on above: Result Comment: LDL REFERENCE RANGE: Optimal <100 mg/dl Near Optimal 100-129 mg/dL Borderline High 130-159 mg/dL High 160-189 mg/dL Very High >=190 mg/dL Performed By: #### 4 [id number], [id number], [id number], [id number], [id number], [id number] #### [address] Triglyceride [Mass/Vol] 165 mg/dL High <=150 [facility] Comment on above: Performed By: #### 4 [id number], [id number], [id number], [id number], [id number], [id number] #### [address] VLDL CHOLESTEROL NAYA 33 mg/dL Normal <=41 [facility] Comment on above: Performed By: #### 4 [id number], [id number], [id number], [id number], [id number], [id number] #### [address] TSHon 05-06-2024 TSH 2.270 uIU/mL Normal 0.465-4.68 0 [facility] Comment on above: Performed By: #### 4 [id number], [id number], [id number], [id number], [id number], [id number] #### [address] VITAMIN B12on 05-06-2024 Cobalamin (Vitamin B12) [Mass/Vol] 249 pg/mL Normal 239-931 [facility] Comment on above: Performed By: #### 4 [id number], [id number], [id number], [id number], [id number], [id number] #### [address] VITAMIN D 25 HYDROXYon 05-06 VITAMIN D 25 HYDROXY 25.5 ng/mL Normal [facility] Comment on above: Result Comment: Refe nate Range: Deficiency: <20 ng/mL Insufficiency: 21-29 ng/mL Optimal Level: >=30 ng/mL Possible Toxicity: >80 ng/mL 80 ng/mL is the lowest reported level associated with toxicity in patients without primary hyperthyroidism who have normal renal function. Performed By: #### 4 [id number], [id number], [id number], [id number], [id number], [id number] #### MISSY [id number] ECG 12 lead - CLINIC PERFORM EDon 12-26-2023 [facility] Absolute lymphocyte countOrd ered By: Pat Hansen on 11-29-2023 Lymphocytes Auto (Unsp spec) [#/Vol] 2.25 10*3/uL 0.83-4.51 [facility] Automated lymphocyte count a s percentage of total leukocytesOrdered By: Pat Hansen on 11-29-2023 Lymphocytes/100 WBC Auto (Unsp spec) 28.5 % 19-41 [facility] Basophil percentageOrdered B y: Pat Hansen on 11-29-2023 Basophils/100 WBC (Bld) 0.8 % 0-1 [facility] Chloride [Moles/Vol] 109 mmol/L 98-[address] [facility] Eosinophils/100 WBC (Bld) 4.9 % 0-5 [facility] Glucose [Mass/Vol] 110 mg/dL 74-106 [facility] Comment on above: Fasting Glucose resu lt from 100 to 125 mg/dL suggests IMPAIRED HOMEOSTASIS per A.D.A. criteria. Hemoglobin (Bld) [Mass/Vol] 13.3 g/dL 12.0-15.0 [facility] Monocytes/100 WBC (Bld) 7.6 % 0-10 [facility] Neutrophils (Bld) [#/Vol] 4.6 10*3/uL 2.0-7.7 [facility] Neutrophils/100 WBC (Bld) 57.8 % 47-70 [facility] Potassium [Moles/Vol] 3.6 mmol/L 3.5-5.1 [facility] Sodium [Moles/Vol] 141 mmol/L 136-145 [facility] WBC (Bld) [#/Vol] 7.9 10*3/uL 4.4-11.0 [facility] Determination of erythrocyte mean corpuscular volume (MCV)Ordered By: Pat Hansen on 11-29-2023 MCV (RBC) [Entitic vol] 90.6 fL 81-99 [facility] Erythrocyte distribution wid th ratioOrdered By: Pat Hansen on 11-29-2023 Erythrocyte distribution width (RBC) [Ratio] 13.6 % 11.6-14.6 [facility] Erythrocyte distribution wid th standard deviationOrdered By: Pat Hansen on 11-29-2023 Erythrocyte distribution width (RBC) [Entitic vol] 45.4 fL 35.1-43.9 [facility] Hematocrit Auto (Bld) [Volum e fraction]Ordered By: Pat Hansen on 11-29-2023 Hematocrit (Bld) [Volume fraction] 43.4 % 37-47 [facility] Immature granulocytes/100 WB C Auto (Bld)Ordered By: Pat Hansen on 11-29-2023 Immature granulocytes/100 WBC (Bld) 0.400 % 0.0-0.9 [facility] Comment on above: IG% - Immature Granu locytes (promyelocytes, myelocytes and metamyelocytes) > 1% indicates that a LEFT SHIFT is Present. Laboratory - Chemistry and C hemistry - challengeOrdered By: Pat Hansen on 11-29-2023 CO2 [Moles/Vol] 28.0 mmol/L 21.0-32.0 [facility] Natriuretic peptide B (Bld) [Mass/Vol] 27.3 pg/mL 0-100 [facility] Urea nitrogen/Creatinine [Mass ratio] 7.8 mg/mg 10-20 [facility] Laboratory - Hematology and Cell countsOrdered By: Pat Hansen on 11-29-2023 MCH (RBC) [Entitic mass] 27.8 pg 27.0-32.0 [facility] MCHC (RBC) [Mass/Vol] 30.6 g/dL 32-36 [facility] Nucleated RBC/100 WBC (Bld) [Ratio] 0 % 0-5 [facility] Platelet mean volume (Bld) [Entitic vol] 10.3 fL 6.2-12.0 [facility] Platelets (Bld) [#/Vol] 246 10*3/uL 150-450 [facility] No Panel InformationOrdered By: Pat Hansen on 11-29-2023 Estimated GFR (MDRD) Amer 92 mL/min >60 [facility] Comment on above: GFR Calc Estimated GFR (MDRD) Non-Af Amer 76 mL/min >60 [facility] Comment on above: Non- GFR Calc RBC Auto (Bld) [#/Vol]Ordere d By: Pat Hansen on 11-29-2023 RBC (Bld) [#/Vol] 4.79 10*6/uL 4.2-5.4 [facility] Serum or plasma calcium miguel angel urement (mass/volume)Ordered By: Pat Hansen on 11-29-2023 Calcium [Mass/Vol] 9.0 mg/dL 8.5-10.1 [facility] Serum or plasma creatinine m easurement (mass/volume)Ordered By: Pat Hansen on 11-29-2023 Creatinine [Mass/Vol] 0.76 mg/dL 0.55-1.02 [facility] Comment on above: The validity of the calculated GFR & GFRAA in patients over 70 years has not been determined. Clinical correlation is essential. Serum or plasma urea nitroge n measurement (mass/volume)Ordered By: Pat Hansen on 11-29-2023 Urea nitrogen [Mass/Vol] 6 mg/dL 7-18 [facility] Thin prep Papanicolaou smear with manual screeningOrdered By: Pat Hansen on 11-29-2023 Thin prep Papanicolaou smear with manual screening 4 12-10 [facility] 3D MAMM BILAT DIAGNOSTICon 0 11-21-2023 3D MAMM BILAT DIAGNOSTIC [place] [address] Patient: BRANDIE KISER Phone#: : 1935 Age: 88 Gender: F Pt. Type: Out Account: [id number] Location: [facility] Ordering: TOSHA XAVIER Exam Date: 11/21/2023/10:11 Family Phys: Charge Code: 070297 Physician: [place] Order #: [id number] Dose#: PROCEDURE: BILATERAL DIAGNOSTIC BREAST TOMOSYNTHESIS MAMMOGRAM WITH CAD COMPARISON: [facility], 3D BILAT DIAGNOSTIC, 02/04/2023, 10:01. INDICATIONS: Breast [...] Guerra MD on 11/21/2023 at 13:38 Normal [facility] US BREAST LT UNILATERAL COMP LETEon 11-21-2023 US BREAST LT UNILATERAL COMPLETE [place] [address] Patient: BRANDIE KISER Phone#: : 1935 Age: 88 Gender: F Pt. Type: Out Account: [id number] Location: [facility] Ordering: TOSHA XAVIER Exam Date: 11/21/2023/12:03 Family Phys: Charge Code: 859276 Physician: [place] Order #: [id number] Dose#: PROCEDURE: ULTRASOUND BREAST LT COMPARISON: [facility], , BREAST LT COMPLETE, 02/04/2023, 11:15. INDICATIONS: [...] Guerra MD on 11/21/2023 at 13:41 Normal [facility] Absolute lymphocyte countOrd ered By: Pat Hansen on 09-09-2023 Lymphocytes Auto (Unsp spec) [#/Vol] 2.46 10*3/uL 0.83-4.51 [facility] Automated lymphocyte count a s percentage of total leukocytesOrdered By: Pat Hansen on 09-09-2023 Lymphocytes/100 WBC Auto (Unsp spec) 31.4 % 19-41 [facility] Basophil percentageOrdered B y: Pat Hansen on 09-09-2023 Basophils/100 WBC (Bld) 0.8 % 0-1 [facility] Chloride [Moles/Vol] 108 mmol/L 98-[address] [facility] Eosinophils/100 WBC (Bld) 1.9 % 0-5 [facility] Glucose [Mass/Vol] 101 mg/dL 74-106 [facility] Comment on above: Fasting Glucose resu lt from 100 to 125 mg/dL suggests IMPAIRED HOMEOSTASIS per A.D.A. criteria. Hemoglobin (Bld) [Mass/Vol] 14.6 g/dL 12.0-15.0 [facility] Monocytes/100 WBC (Bld) 8.7 % 0-10 [facility] Neutrophils (Bld) [#/Vol] 4.4 10*3/uL 2.0-7.7 [facility] Neutrophils/100 WBC (Bld) 56.6 % 47-70 [facility] Potassium [Moles/Vol] 4.0 mmol/L 3.5-5.1 [facility] Sodium [Moles/Vol] 142 mmol/L 136-145 [facility] WBC (Bld) [#/Vol] 7.8 10*3/uL 4.4-11.0 [facility] Determination of erythrocyte mean corpuscular volume (MCV)Ordered By: Pat Hansen on 09-09-2023 MCV (RBC) [Entitic vol] 86.7 fL 81-99 [facility] Erythrocyte distribution wid th ratioOrdered By: Pat Hansen on 09-09-2023 Erythrocyte distribution width (RBC) [Ratio] 15.0 % 11.6-14.6 [facility] Erythrocyte distribution wid th standard deviationOrdered By: Pat Hansen on 09-09-2023 Erythrocyte distribution width (RBC) [Entitic vol] 47.8 fL 35.1-43.9 [facility] Hematocrit Auto (Bld) [Volum e fraction]Ordered By: Pat Hansen on 09-09-2023 Hematocrit (Bld) [Volume fraction] 47.5 % 37-47 [facility] Immature granulocytes/100 WB C Auto (Bld)Ordered By: Pat Hansen on 09-09-2023 Immature granulocytes/100 WBC (Bld) 0.600 % 0.0-0.9 [facility] Comment on above: IG% - Immature Granu locytes (promyelocytes, myelocytes and metamyelocytes) > 1% indicates that a LEFT SHIFT is Present. Laboratory - Chemistry and C hemistry - challengeOrdered By: Pat Hansen on 09-09-2023 CO2 [Moles/Vol] 29.0 mmol/L 21.0-32.0 [facility] Natriuretic peptide B (Bld) [Mass/Vol] 32.3 pg/mL 0-100 [facility] Urea nitrogen/Creatinine [Mass ratio] 11.0 mg/mg 10-20 [facility] Laboratory - Hematology and Cell countsOrdered By: Pat Hansen on 09-09-2023 MCH (RBC) [Entitic mass] 26.6 pg 27.0-32.0 [facility] MCHC (RBC) [Mass/Vol] 30.7 g/dL 32-36 [facility] Nucleated RBC/100 WBC (Bld) [Ratio] 0 % 0-5 [facility] Platelet mean volume (Bld) [Entitic vol] 9.5 fL 6.2-12.0 [facility] Platelets (Bld) [#/Vol] 192 10*3/uL 150-450 [facility] No Panel InformationOrdered By: Pat Hansen on 09-09-2023 Estimated GFR (MDRD) Amer 97 mL/min >60 [facility] Comment on above: GFR Calc Estimated GFR (MDRD) Non-Af Amer 80 mL/min >60 [facility] Comment on above: Non- GFR Calc Free Triiodothyronine (T3) pg/dL 2.2 pg/mL 2.18-3.98 [facility] Vitamin D 25-Hydroxy 54.9 ng/mL [facility] Comment on above: Vitamin D 25(OH) Sta tus Range Deficiency <20 ng/mL (50nmol/L) Insufficiency 20 - 30 ng/mL (50 - 75 nmol/L) Sufficiency 30 - 100 ng/mL (75 - 250 nmol/L) Toxicity >100 ng/mL (>250 nmol/L) RBC Auto (Bld) [#/Vol]Ordere d By: Pat Hansen on 09-09-2023 RBC (Bld) [#/Vol] 5.48 10*6/uL 4.2-5.4 [facility] Serum or plasma calcium miguel angel urement (mass/volume)Ordered By: Pat Hansen on 09-09-2023 Calcium [Mass/Vol] 9.1 mg/dL 8.5-10.1 [facility] Serum or plasma creatinine m easurement (mass/volume)Ordered By: Pat Hansen on 09-09-2023 Creatinine [Mass/Vol] 0.73 mg/dL 0.55-1.02 [facility] Comment on above: The validity of the calculated GFR & GFRAA in patients over 70 years has not been determined. Clinical correlation is essential. Serum or plasma thyroid stim ulating hormone (TSH) measurement (units/volume)Ordered By: Pat Hansen on 09-09-2023 TSH Qn 1.76 uIU/mL 0.358-3.74 [facility] Serum or plasma urea nitroge n measurement (mass/volume)Ordered By: Pat Hansen on 09-09-2023 Urea nitrogen [Mass/Vol] 8 mg/dL 7-18 [facility] Thin prep Papanicolaou smear with manual screeningOrdered By: Pat Hansen on 09-09-2023 Thin prep Papanicolaou smear with manual screening 5 5-15 [facility] Thin prep Papanicolaou smear with manual screening 0.99 ng/dL 0.76-1.46 [facility] Absolute lymphocyte countOrd ered By: Adriana Dee on 2023 Lymphocytes Auto (Unsp spec) [#/Vol] 3.05 10*3/uL 0.83-4.51 [facility] Automated lymphocyte count a s percentage of total leukocytesOrdered By: Adriana Dee on 2023 Lymphocytes/100 WBC Auto (Unsp spec) 26.1 % 19-41 [facility] Basophil percentageOrdered B y: Adriana Dee on 2023 Basophils/100 WBC (Bld) 0.3 % 0-1 [facility] Chloride [Moles/Vol] 106 mmol/L 98-[address] [facility] Eosinophils/100 WBC (Bld) 0.9 % 0-5 [facility] Glucose [Mass/Vol] 102 mg/dL 74-106 [facility] Comment on above: Fasting Glucose resu lt from 100 to 125 mg/dL suggests IMPAIRED HOMEOSTASIS per A.D.A. criteria. Hemoglobin (Bld) [Mass/Vol] 15.1 g/dL 12.0-15.0 [facility] Monocytes/100 WBC (Bld) 6.7 % 0-10 [facility] Neutrophils (Bld) [#/Vol] 7.6 10*3/uL 2.0-7.7 [facility] Neutrophils/100 WBC (Bld) 65.0 % 47-70 [facility] Potassium [Moles/Vol] 3.8 mmol/L 3.5-5.1 [facility] Sodium [Moles/Vol] 139 mmol/L 136-145 [facility] WBC (Bld) [#/Vol] 11.7 10*3/uL 4.4-11.0 [facility] Determination of erythrocyte mean corpuscular volume (MCV)Ordered By: Adriana Dee on 2023 MCV (RBC) [Entitic vol] 86.5 fL 81-99 [facility] Erythrocyte distribution wid th ratioOrdered By: Adriana Dee on 2023 Erythrocyte distribution width (RBC) [Ratio] 14.3 % 11.6-14.6 [facility] Erythrocyte distribution wid th standard deviationOrdered By: Adriana Dee on 2023 Erythrocyte distribution width (RBC) [Entitic vol] 45.5 fL 35.1-43.9 [facility] Hematocrit Auto (Bld) [Volum e fraction]Ordered By: Adriana Dee on 2023 Hematocrit (Bld) [Volume fraction] 48.7 % 37-47 [facility] Immature granulocytes/100 WB C Auto (Bld)Ordered By: Adriana Dee on 2023 Immature granulocytes/100 WBC (Bld) 1.000 % 0.0-0.9 [facility] Comment on above: IG% - Immature Granu locytes (promyelocytes, myelocytes and metamyelocytes) > 1% indicates that a LEFT SHIFT is Present. Laboratory - Chemistry and C hemistry - challengeOrdered By: Adraina Dee on 2023 CO2 [Moles/Vol] 28.0 mmol/L 21.0-32.0 [facility] Urea nitrogen/Creatinine [Mass ratio] 18.8 mg/mg 10-20 [facility] Laboratory - Hematology and Cell countsOrdered By: Adriana Dee on 2023 MCH (RBC) [Entitic mass] 26.8 pg 27.0-32.0 [facility] MCHC (RBC) [Mass/Vol] 31.0 g/dL 32-36 [facility] Nucleated RBC/100 WBC (Bld) [Ratio] 0 % 0-5 [facility] Platelets (Bld) [#/Vol] 193 10*3/uL 150-450 [facility] No Panel InformationOrdered By: Adriana Dee on 2023 Estimated Creatinine Clearance Calc 44.20 ml/min [facility] Estimated GFR (MDRD) Amer 88 mL/min >60 [facility] Comment on above: GFR Calc Estimated GFR (MDRD) Non-Af Amer 72 mL/min >60 [facility] Comment on above: Non- GFR Calc Platelet mean volume Gilbert-Ec ker (Bld) [Entitic vol]Ordered By: Adriana Dee on 2023 Platelet mean volume (Bld) [Entitic vol] 9.6 fL 6.2-12.0 [facility] RBC Auto (Bld) [#/Vol]Ordere d By: Adriana Dee on 2023 RBC (Bld) [#/Vol] 5.63 10*6/uL 4.2-5.4 [facility] Serum or plasma calcium miguel angel urement (mass/volume)Ordered By: Adriana Dee on 2023 Calcium [Mass/Vol] 8.7 mg/dL 8.5-10.1 [facility] Serum or plasma cardiac trop onin I panel by high sensitivity methodOrdered By: Adriana Dee on 2023 Tropinin I.cardiac panel High sensitivity method 8 pg/mL 3.0-54.0 [facility] Comment on above: Please Note: New Randi t Units and Gender Specific Reference Ranges. For more information see Policy Stat Procedure [facility] High Sensitivity Troponin (TNIH) and attachments. Serum or plasma creatinine m easurement (mass/volume)Ordered By: Adriana Dee on 2023 Creatinine [Mass/Vol] 0.80 mg/dL 0.55-1.02 [facility] Comment on above: The validity of the calculated GFR & GFRAA in patients over 70 years has not been determined. Clinical correlation is essential. Serum or plasma urea nitroge n measurement (mass/volume)Ordered By: Adriana Dee on 2023 Urea nitrogen [Mass/Vol] 15 mg/dL 7-18 [facility] Thin prep Papanicolaou smear with manual screeningOrdered By: Adriana Dee on 2023 Thin prep Papanicolaou smear with manual screening 5 5-15 [facility] Absolute lymphocyte countOrd ered By: Rolanda Pavon on 08-12-2023 Lymphocytes Auto (Unsp spec) [#/Vol] 2.01 10*3/uL 0.83-4.51 [facility] Basophil percentageOrdered B y: Rolanda Pavon on 08-12-2023 Basophils/100 WBC (Bld) 0.3 % 0-1 [facility] Chloride [Moles/Vol] 106 mmol/L 98-[address] [facility] Eosinophils/100 WBC (Bld) 0.1 % 0-5 [facility] Glucose [Mass/Vol] 107 mg/dL 74-106 [facility] Comment on above: Fasting Glucose resu lt from 100 to 125 mg/dL suggests IMPAIRED HOMEOSTASIS per A.D.A. criteria. Neutrophils (Bld) [#/Vol] 8.7 10*3/uL 2.0-7.7 [facility] Neutrophils/100 WBC (Bld) 76.6 % 47-70 [facility] Potassium [Moles/Vol] 4.1 mmol/L 3.5-5.1 [facility] Sodium [Moles/Vol] 140 mmol/L 136-145 [facility] WBC (Bld) [#/Vol] 11.4 10*3/uL 4.4-11.0 [facility] Blood erythrocytes count (nu mber/volume)Ordered By: Rolanda Pavon on 08-12-2023 RBC (Bld) [#/Vol] 5.67 10*6/uL 4.2-5.4 [facility] Blood hemoglobin measurement (mass/volume)Ordered By: Rolanda Pavon on 08-12-2023 Hemoglobin (Bld) [Mass/Vol] 15.3 g/dL 12.0-15.0 [facility] Blood lymphocytes/100 leukoc ytesOrdered By: Rolanda Pavon on 08-12-2023 Lymphocytes/100 WBC (Bld) 17.7 % 19-41 [facility] Blood monocytes/100 leukocyt esOrdered By: Rolanda Pavon on 08-12-2023 Monocytes/100 WBC (Bld) 4.8 % 0-10 [facility] Blood platelet mean volumeOr dered By: Rolanda Pavon on 08-12-2023 Platelet mean volume (Bld) [Entitic vol] 9.8 fL 6.2-12.0 [facility] Determination of erythrocyte mean corpuscular volume (MCV)Ordered By: Rolanda Pavon on 08-12-2023 MCV (RBC) [Entitic vol] 84.8 fL 81-99 [facility] Hematocrit Auto (Bld) [Volum e fraction]Ordered By: Rolanda Pavon on 08-12-2023 Hematocrit (Bld) [Volume fraction] 48.1 % 37-47 [facility] Laboratory - Chemistry and C hemistry - challengeOrdered By: Rolanda aPvon on 08-12-2023 CO2 [Moles/Vol] 27.0 mmol/L 21.0-32.0 [facility] Urea nitrogen/Creatinine [Mass ratio] 16.0 mg/mg 10-20 [facility] Laboratory - Hematology and Cell countsOrdered By: Rolanda Pavon on 08-12-2023 Erythrocyte distribution width (RBC) [Entitic vol] 43.1 fL 35.1-43.9 [facility] Erythrocyte distribution width (RBC) [Ratio] 13.9 % 11.6-14.6 [facility] Immature granulocytes/100 WBC (Bld) 0.500 % 0.0-0.9 [facility] Comment on above: IG% - Immature Granu locytes (promyelocytes, myelocytes and metamyelocytes) > 1% indicates that a LEFT SHIFT is Present. MCH (RBC) [Entitic mass] 27.0 pg 27.0-32.0 [facility] Nucleated RBC/100 WBC (Bld) [Ratio] 0 % 0-5 [facility] MCHC Auto (RBC) [Mass/Vol]Or dered By: Rolanda Pavon on 08-12-2023 MCHC (RBC) [Mass/Vol] 31.8 g/dL 32-36 [facility] No Panel InformationOrdered By: Rolanda Pavon on 08-12-2023 Troponin I High Sensitivity 6 pg/mL 3.0-54.0 [facility] Comment on above: Please Note: New Randi t Units and Gender Specific Reference Ranges. For more information see Policy Stat Procedure [facility] High Sensitivity Troponin (TNIH) and attachments. D-Dimer Quantitative (PE/DVT) 0.61 FEU/ug/m 0.27-0.49 [facility] Comment on above: D-Dimer ELEVATED (>0 .49): Additional studies and clinicalassessments are indicated to conclude diagnosis of:Deep Vein Thrombosis (DVT) or Pulmonary Embolism (PE)CRITICAL VALUE VERIFIED. CALLED TO [employer]08/12/23 Selina Fragoso.RESULTS READ BACK BY SAME . Estimated Creatinine Clearance Calc 43.89 ml/min [facility] Estimated GFR (MDRD) Amer 104 mL/min >60 [facility] Comment on above: GFR Calc Estimated GFR (MDRD) Non-Af Amer 86 mL/min >60 [facility] Comment on above: Non- GFR Calc Platelets bldOrdered By: Rebecca Pavon on 08-12-2023 Platelets (Bld) [#/Vol] 211 10*3/uL 150-450 [facility] Serum or plasma calcium miguel angel urement (mass/volume)Ordered By: Rolanda Pavon on 08-12-2023 Calcium [Mass/Vol] 9.1 mg/dL 8.5-10.1 [facility] Serum or plasma creatinine m easurement (mass/volume)Ordered By: Rolanda Pavon on 08-12-2023 Creatinine [Mass/Vol] 0.69 mg/dL 0.55-1.02 [facility] Comment on above: The validity of the calculated GFR & GFRAA in patients over 70 years has not been determined. Clinical correlation is essential. Serum or plasma urea nitroge n measurement (mass/volume)Ordered By: Rolanda Pavon on 08-12-2023 Urea nitrogen [Mass/Vol] 11 mg/dL 7-18 [facility] Thin prep Papanicolaou smear with manual screeningOrdered By: Rolanda Pavon on 08-12-2023 Thin prep Papanicolaou smear with manual screening 7 5-15 [facility] Absolute lymphocyte countOrd ered By: Olinda Kramer on 04-08-2023 Lymphocytes Auto (Unsp spec) [#/Vol] 2.33 10*3/uL 0.83-4.51 [facility] Basophil percentageOrdered B y: Olinda Kramer on 04-08-2023 Basophils/100 WBC (Bld) 0.2 % 0-1 [facility] Chloride [Moles/Vol] 108 mmol/L 98-[address] [facility] Eosinophils/100 WBC (Bld) 1.5 % 0-5 [facility] Glucose [Mass/Vol] 98 mg/dL 74-106 [facility] Neutrophils (Bld) [#/Vol] 6.4 10*3/uL 2.0-7.7 [facility] Neutrophils/100 WBC (Bld) 68.0 % 47-70 [facility] Potassium [Moles/Vol] 4.0 mmol/L 3.5-5.1 [facility] Sodium [Moles/Vol] 139 mmol/L 136-145 [facility] WBC (Bld) [#/Vol] 9.4 10*3/uL 4.4-11.0 [facility] Blood erythrocytes count (nu mber/volume)Ordered By: Olinda Kramer on 04-08-2023 RBC (Bld) [#/Vol] 4.67 10*6/uL 4.2-5.4 [facility] Blood hemoglobin measurement (mass/volume)Ordered By: Olinda Kramer on 04-08-2023 Hemoglobin (Bld) [Mass/Vol] 12.9 g/dL 12.0-15.0 [facility] Blood lymphocytes/100 leukoc ytesOrdered By: Olinda Kramer on 04-08-2023 Lymphocytes/100 WBC (Bld) 24.9 % 19-41 [facility] Blood monocytes/100 leukocyt esOrdered By: Olinda Kramer on 04-08-2023 Monocytes/100 WBC (Bld) 4.7 % 0-10 [facility] Blood platelet mean volumeOr dered By: Olinda Kramer on 04-08-2023 Platelet mean volume (Bld) [Entitic vol] 9.5 fL 6.2-12.0 [facility] Determination of erythrocyte mean corpuscular volume (MCV)Ordered By: Olinda Kramer on 04-08-2023 MCV (RBC) [Entitic vol] 87.6 fL 81-99 [facility] Hematocrit Auto (Bld) [Volum e fraction]Ordered By: Olinda Kramer on 04-08-2023 Hematocrit (Bld) [Volume fraction] 40.9 % 37-47 [facility] INR in Blood by Coagulation assayOrdered By: Olinda Kramer on 04-08-2023 INR Coag (Bld) [Relative time] 1.0 {INR} [facility] Laboratory - Chemistry and C hemistry - challengeOrdered By: Olinda Kramer on 04-08-2023 CO2 [Moles/Vol] 25.0 mmol/L 21.0-32.0 [facility] Urea nitrogen/Creatinine [Mass ratio] 13.7 mg/mg 10-20 [facility] Laboratory - CoagulationOrde red By: Olinda Kramer on 04-08-2023 aPTT Coag (Bld) [Time] 26.3 s 24.1-36.2 [facility] PT Coag (PPP) [Time] 13.0 s 11.7-14.[address] [facility] Laboratory - Hematology and Cell countsOrdered By: Olinda Kramer on 04-08-2023 Erythrocyte distribution width (RBC) [Entitic vol] 43.8 fL 35.1-43.9 [facility] Erythrocyte distribution width (RBC) [Ratio] 13.6 % 11.6-14.6 [facility] Immature granulocytes/100 WBC (Bld) 0.700 % 0.0-0.9 [facility] Comment on above: IG% - Immature Granu locytes (promyelocytes, myelocytes and metamyelocytes) > 1% indicates that a LEFT SHIFT is Present. MCH (RBC) [Entitic mass] 27.6 pg 27.0-32.0 [facility] Nucleated RBC/100 WBC (Bld) [Ratio] 0 % 0-5 [facility] MCHC Auto (RBC) [Mass/Vol]Or dered By: Olinda Kramer on 04-08-2023 MCHC (RBC) [Mass/Vol] 31.5 g/dL 32-36 [facility] No Panel InformationOrdered By: Olinda Kramer on 04-08-2023 Estimated Creatinine Clearance Calc 32.53 ml/min [facility] Estimated GFR (MDRD) Amer 97 mL/min >60 [facility] Comment on above: GFR Calc Estimated GFR (MDRD) Non-Af Amer 81 mL/min >60 [facility] Comment on above: Non- GFR Calc Platelets bldOrdered By: Swati Kramer on 04-08-2023 Platelets (Bld) [#/Vol] 241 10*3/uL 150-450 [facility] Serum or plasma calcium miguel angel urement (mass/volume)Ordered By: Olinda Kramer on 04-08-2023 Calcium [Mass/Vol] 8.6 mg/dL 8.5-10.1 [facility] Serum or plasma creatinine m easurement (mass/volume)Ordered By: Olinda Kramer on 04-08-2023 Creatinine [Mass/Vol] 0.73 mg/dL 0.55-1.02 [facility] Comment on above: The validity of the calculated GFR & GFRAA in patients over 70 years has not been determined. Clinical correlation is essential. Serum or plasma urea nitroge n measurement (mass/volume)Ordered By: Olinda Kramer on 04-08-2023 Urea nitrogen [Mass/Vol] 10 mg/dL 7-18 [facility] Thin prep Papanicolaou smear with manual screeningOrdered By: Olinda Kramer on 04-08-2023 Thin prep Papanicolaou smear with manual screening 6 5-15 [facility] Absolute lymphocyte countOrd ered By: Denis Caballero on 04-07-2023 Lymphocytes Auto (Unsp spec) [#/Vol] 2.72 10*3/uL 0.83-4.51 [facility] Basophil percentageOrdered B y: Denis Caballero on 04-07-2023 Basophils/100 WBC (Bld) 0.5 % 0-1 [facility] Bilirubin [Mass/Vol] 0.60 mg/dL 0.20-1.[address] [facility] Comment on above: For patients on eltr ombopag therapy, use of Dimension Spicer TBIL is not recommended. Chloride [Moles/Vol] 108 mmol/L 98-[address] [facility] Eosinophils/100 WBC (Bld) 2.1 % 0-5 [facility] Glucose [Mass/Vol] 120 mg/dL 74-106 [facility] Comment on above: Fasting Glucose resu lt from 100 to 125 mg/dL suggests IMPAIRED HOMEOSTASIS per A.D.A. criteria. Neutrophils (Bld) [#/Vol] 6.3 10*3/uL 2.0-7.7 [facility] Neutrophils/100 WBC (Bld) 63.6 % 47-70 [facility] Potassium [Moles/Vol] 3.9 mmol/L 3.5-5.1 [facility] Protein [Mass/Vol] 7.0 g/dL 6.4-8.2 [facility] Sodium [Moles/Vol] 138 mmol/L 136-145 [facility] WBC (Bld) [#/Vol] 9.8 10*3/uL 4.4-11.0 [facility] Blood erythrocytes count (nu mber/volume)Ordered By: Denis Caballero on 04-07-2023 RBC (Bld) [#/Vol] 5.30 10*6/uL 4.2-5.4 [facility] Blood hemoglobin measurement (mass/volume)Ordered By: Denis Caballero on 04-07-2023 Hemoglobin (Bld) [Mass/Vol] 14.9 g/dL 12.0-15.0 [facility] Blood lymphocytes/100 leukoc ytesOrdered By: Denis Caballero on 04-07-2023 Lymphocytes/100 WBC (Bld) 27.6 % 19-41 [facility] Blood monocytes/100 leukocyt esOrdered By: Denis Caballero on 04-07-2023 Monocytes/100 WBC (Bld) 5.4 % 0-10 [facility] Blood platelet mean volumeOr dered By: Denis Caballero on 04-07-2023 Platelet mean volume (Bld) [Entitic vol] 9.5 fL 6.2-12.0 [facility] CBC + DIFFon 04-07-2023 Baso # 0.10 x10EE3/UL Normal 0.00 - 0.10 [facility] Comment on above: Performed By: #### 2 17069 #### [facility],[address] [place] [address] Basophils/100 WBC (Bld) 0.7 % Normal 0.0 - 2.0 [facility] Comment on above: Performed By: #### 2 85726 #### [place] [address] CBC + DIFF Normal [facility] Comment on above: Result Comment: CBC- COMPLETE BLOOD COUNT Performed By: #### 2 23722 #### [place] [address] EO # 0.20 x10EE3/UL Normal 0.00 - 0.50 [facility] Comment on above: Performed By: #### 2 67946 #### [place] [address] Eosinophils/100 WBC (Bld) 1.8 % Normal 0.0 - 7.0 [facility] Comment on above: Performed By: #### 2 90273 #### [place] [address] Erythrocyte distribution width (RBC) [Ratio] 14.0 % Normal 12.0 - 15.6 [facility] Comment on above: Performed By: #### 2 09386 #### [place] [address] Hematocrit (Bld) [Volume fraction] 51.0 % High 34.0 - 46.0 [facility] Comment on above: Performed By: #### 2 62103 #### [facility],[address] [place], [place] [id number] Hemoglobin (Bld) [Mass/Vol] 16.1 g/dL High 12.0 - 16.0 [facility] Comment on above: Performed By: #### 2 76172 #### [facility],[address] [place], [place] [address] Lymph # 1.80 x10EE3/UL Normal 0.80 - 2.80 [facility] Comment on above: Performed By: #### 2 11505 #### [facility],[address] [place], [place] [address] Lymphocytes/100 WBC (Bld) 20.3 % Normal 20.0 - 45.0 [facility] Comment on above: Performed By: #### 2 43096 #### [facility],[address] [place], [place] [id number] MANUAL DIFF N/A Normal [facility] Comment on above: Performed By: #### 2 03728 #### [facility],[address] [place] [address] 48443 MCH (RBC) [Entitic mass] 27 pg Normal 27 - 33 [facility] Comment on above: Performed By: #### 2 44833 #### [facility],[address] [place] [address]11 MCHC 32 X10 3 Normal 32 - 36 [facility] Comment on above: Performed By: #### 2 78775 #### [facility],[address] [place] [address] 75272 MCV (RBC) [Entitic vol] 87 fL Normal 80 - 99 [facility] Comment on above: Performed By: #### 2 77994 #### [facility],[address] [place], [place] [address] [place] # 0.60 x10EE3/UL Normal 0.20 - 1.00 [facility] Comment on above: Performed By: #### 2 08345 #### [facility],[address] [place] [address] 16855 MONOS % 7.1 % Normal 0.0 - 10.0 [facility] Comment on above: Performed By: #### 2 40893 #### [facility],[address] [place] [address] Morphology Michael (Bld) [Interp] N/A Normal [facility] Comment on above: Result Comment: {CD] Performed By: #### 2 06227 #### [facility],[address] [place] [address] Neut # 6.20 x10EE3/UL Normal 1.50 - 7.10 [facility] Comment on above: Performed By: #### 2 98284 #### [facility],[address] [place] [address] Neutrophils/100 WBC (Bld) 70.1 % Normal 46.0 - 76.0 [facility] Comment on above: Performed By: #### 2 75975 #### [facility],[address] [place] [address] PLATELET 262 x10EE3/UL Normal 150 - 450 [facility] Comment on above: Performed By: #### 2 26755 #### [facility],[address] [place] [address] Platelet mean volume (Bld) [Entitic vol] 7.5 fL Normal 6.6 - 10.5 [facility] Comment on above: Result Comment: AUTO MATED DIFFERENTIAL Performed By: #### 2 53237 #### [facility],[address] [place] [address] RBC 5.89 x 10EE6/UL High 4.10 - 5.30 [facility] Comment on above: Performed By: #### 2 63822 #### [facility],[address] [place] [address]4219 WBC 8.8 x 10EE3/UL Normal 4.5 - 10.8 [facility] Comment on above: Performed By: #### 2 10235 #### [facility],[address] [place] [address] 53291 CMP with eGFRon 04-07-2023 AGE 87 years Normal [facility] Comment on above: Performed By: #### 2 89309 #### [facility],[address] [place] [address] 20478 Albumin [Mass/Vol] 4.1 g/dL Normal 3.4 - 5.0 [facility] Comment on above: Performed By: #### 2 89482 #### [facility],[address] [place] [address] 89299 Albumin/Globulin [Mass ratio] 1.2 {ratio} Normal 0.9 - 1.6 [facility] Comment on above: Performed By: #### 2 46207 #### [facility],[address] [place] [address] 98468 ALK PHOS 143 U/L High 46 - 116 [facility] Comment on above: Performed By: #### 2 83391 #### [facility],[address] [place] [address] 07994 ALT [Catalytic activity/Vol] 30 U/L Normal 14 - 59 [facility] Comment on above: Performed By: #### 2 79198 #### [facility],[address] [place] [address] 39410 Anion gap [Moles/Vol] 15 mmol/L Normal 10 - 20 [facility] Comment on above: Performed By: #### 2 93891 #### [facility],[address] [place] [address] 87714 AST [Catalytic activity/Vol] 15 U/L Normal 13 - 39 [facility] Comment on above: Performed By: #### 2 35074 #### [facility],[address] [place] [address] 37281 B/C RATIO 14 ratio Normal 0 - 30 [facility] Comment on above: Performed By: #### 2 45811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 attachments. Platelets bldon 02-08-2022 Platelets (Bld) [#/Vol] 231 10*3/uL 150-450 [facility] Work Phone: Serum or plasma calcium miguel angel urement (mass/volume)on 02-08-2022 Calcium [Mass/Vol] 9.1 mg/dL 8.5-10.1 [facility] Work Phone: Serum or plasma creatinine m easurement (mass/volume)on 02-08-2022 Creatinine [Mass/Vol] 0.73 mg/dL 0.55-1.02 [facility] Work Phone: Comment on above: The validity of the calculated GFR & GFRAA in patients over 70 years has not been determined. Clinical correlation is essential. Serum or plasma urea nitroge n measurement (mass/volume)on 02-08-2022 Urea nitrogen [Mass/Vol] 6 mg/dL 7-18 [facility] Work Phone: Thin prep Papanicolaou smear with manual screeningon 02-08-2022 Thin prep Papanicolaou smear with manual screening 4 5-15 [facility] Work Phone: Blood hemoglobin measurement (mass/volume)on 12-13-2021 Hemoglobin (Bld) [Mass/Vol] 14.4 g/dL 12.0-15.0 [facility] Work Phone: Hematocrit Auto (Bld) [Volum e fraction]on 12-13-2021 Hematocrit (Bld) [Volume fraction] 45.9 % 37-47 [facility] Work Phone: Absolute lymphocyte counton 11-23-2021 Lymphocytes Auto (Unsp spec) [#/Vol] 2.23 10*3/uL 0.83-4.51 [facility] Work Phone: Basophil percentageon 2021 Basophils/100 WBC (Bld) 0.4 % 0-1 [facility] Work Phone: Eosinophils/100 WBC (Bld) 2.4 % 0-5 [facility] Work Phone: Neutrophils (Bld) [#/Vol] 4.9 10*3/uL 2.0-7.7 [facility] Work Phone: Neutrophils/100 WBC (Bld) 62.5 % 47-70 [facility] Work Phone: WBC (Bld) [#/Vol] 7.9 10*3/uL 4.4-11.0 [facility] Work Phone: [phone] Blood erythrocytes count (nu mber/volume)on 11-23-2021 RBC (Bld) [#/Vol] 4.83 10*6/uL 4.2-5.4 [facility] Work Phone: [phone] Blood hemoglobin measurement (mass/volume)on 11-23-2021 Hemoglobin (Bld) [Mass/Vol] 13.2 g/dL 12.0-15.0 [facility] Work Phone: Blood lymphocytes/100 leukoc yteson 11-23-2021 Lymphocytes/100 WBC (Bld) 28.4 % 19-41 [facility] Work Phone: Blood monocytes/100 leukocyt eson 11-23-2021 Monocytes/100 WBC (Bld) 5.9 % 0-10 [facility] Work Phone: Blood platelet mean volumeon 11-23-2021 Platelet mean volume (Bld) [Entitic vol] 9.7 fL 6.2-12.0 [facility] Work Phone: [phone] Determination of erythrocyte mean corpuscular volume (MCV)on 11-23-2021 MCV (RBC) [Entitic vol] 87.2 fL 81-99 [facility] Work Phone: Hematocrit Auto (Bld) [Volum e fraction]on 11-23-2021 Hematocrit (Bld) [Volume fraction] 42.1 % 37-47 [facility] Work Phone: Laboratory - Hematology and Cell countson 11-23-2021 Erythrocyte distribution width (RBC) [Entitic vol] 44.6 fL 35.1-43.9 [facility] Work Phone: [phone] Erythrocyte distribution width (RBC) [Ratio] 14.0 % 11.6-14.6 [facility] Work Phone: Immature granulocytes/100 WBC (Bld) 0.400 % 0.0-0.9 [facility] Work Phone: Comment on above: IG% - Immature Granu locytes (promyelocytes, myelocytes and metamyelocytes) > 1% indicates that a LEFT SHIFT is Present. MCH (RBC) [Entitic mass] 27.3 pg 27.0-32.0 [facility] Work Phone: Nucleated RBC/100 WBC (Bld) [Ratio] 0 % 0-5 [facility] Work Phone: MCHC Auto (RBC) [Mass/Vol]on 11-23-2021 MCHC (RBC) [Mass/Vol] 31.4 g/dL 32-36 [facility] Work Phone: Platelets bldon 11-23-2021 Platelets (Bld) [#/Vol] 191 10*3/uL 150-450 [facility] Work Phone: Basophil percentageon 2021 Chloride [Moles/Vol] 106 mmol/L 98-[address] [facility] Work Phone: Glucose [Mass/Vol] 93 mg/dL 74-106 [facility] Work Phone: Potassium [Moles/Vol] 3.8 mmol/L 3.5-5.1 [facility] Work Phone: Sodium [Moles/Vol] 139 mmol/L 136-145 [facility] Work Phone: Laboratory - Chemistry and C hemistry - challengeon 11-22-2021 CO2 [Moles/Vol] 27.0 mmol/L 21.0-32.0 [facility] Work Phone: Urea nitrogen/Creatinine [Mass ratio] 15.4 mg/mg 10-20 [facility] Work Phone: No Panel Informationon 11-22 Troponin I High Sensitivity < 3 pg/mL 3.0-54.0 [facility] Work Phone: Comment on above: Please Note: New Randi t Units and Gender Specific Reference Ranges. For more information see Policy Stat Procedure Spicer High Sensitivity Troponin (TNIH) and attachments. Estimated Creatinine Clearance Calc 33.12 ml/min [facility] Work Phone: Estimated GFR (MDRD) Amer 100 mL/min >60 [facility] Work Phone: Comment on above: GFR Calc Estimated GFR (MDRD) Non-Af Amer 83 mL/min >60 [facility] Work Phone: Comment on above: Non- GFR Calc Serum or plasma calcium miguel angel urement (mass/volume)on 11-22-2021 Calcium [Mass/Vol] 9.7 mg/dL 8.5-10.1 [facility] Work Phone: Serum or plasma creatinine m easurement (mass/volume)on 11-22-2021 Creatinine [Mass/Vol] 0.71 mg/dL 0.55-1.02 [facility] Work Phone: Comment on above: The validity of the calculated GFR & GFRAA in patients over 70 years has not been determined. Clinical correlation is essential. Serum or plasma urea nitroge n measurement (mass/volume)on 11-22-2021 Urea nitrogen [Mass/Vol] 11 mg/dL 7-18 [facility] Work Phone: Thin prep Papanicolaou smear with manual screeningon 11-22-2021 Thin prep Papanicolaou smear with manual screening 6 5-15 [facility] Work Phone: Basophil percentageon 2021 Bilirubin [Mass/Vol] 0.90 mg/dL 0.20-1.[address] [facility] Work Phone: Comment on above: For patients on eltr ombopag therapy, use of Dimension Spicer TBIL is not recommended. Chloride [Moles/Vol] 108 mmol/L 98-[address] [facility] Work Phone: Glucose [Mass/Vol] 104 mg/dL 74-106 [facility] Work Phone: Comment on above: Fasting Glucose resu lt from 100 to 125 mg/dL suggests IMPAIRED HOMEOSTASIS per A.D.A. criteria. Potassium [Moles/Vol] 3.8 mmol/L 3.5-5.1 [facility] Work Phone: Protein [Mass/Vol] 6.1 g/dL 6.4-8.2 [facility] Work Phone: Sodium [Moles/Vol] 140 mmol/L 136-145 [facility] Work Phone: WBC (Bld) [#/Vol] 7.0 10*3/uL 4.4-11.0 [facility] Work Phone: Blood erythrocytes count (nu mber/volume)on 10-31-2021 RBC (Bld) [#/Vol] 5.05 10*6/uL 4.2-5.4 [facility] Work Phone: Blood hemoglobin measurement (mass/volume)on 10-31-2021 Hemoglobin (Bld) [Mass/Vol] 13.9 g/dL 12.0-15.0 [facility] Work Phone: Blood platelet mean volumeon 10-31-2021 Platelet mean volume (Bld) [Entitic vol] 9.6 fL 6.2-12.0 [facility] Work Phone: Determination of erythrocyte mean corpuscular volume (MCV)on 10-31-2021 MCV (RBC) [Entitic vol] 85.7 fL 81-99 [facility] Work Phone: Hematocrit Auto (Bld) [Volum e fraction]on 10-31-2021 Hematocrit (Bld) [Volume fraction] 43.3 % 37-47 [facility] Work Phone: Laboratory - Chemistry and C hemistry - challengeon 10-31-2021 ALP [Catalytic activity/Vol] 97 U/L 45-117 [facility] Work Phone: ALT [Catalytic activity/Vol] 27 U/L 13-56 [facility] Work Phone: CO2 [Moles/Vol] 26.0 mmol/L 21.0-32.0 [facility] Work Phone: Globulin (S) [Mass/Vol] 3.0 g/dL 2.2-4.2 [facility] Work Phone: Urea nitrogen/Creatinine [Mass ratio] 10.6 mg/mg 10-20 [facility] Work Phone: Laboratory - Hematology and Cell countson 10-31-2021 Erythrocyte distribution width (RBC) [Entitic vol] 44.7 fL 35.1-43.9 [facility] Work Phone: Erythrocyte distribution width (RBC) [Ratio] 14.2 % 11.6-14.6 [facility] Work Phone: MCH (RBC) [Entitic mass] 27.5 pg 27.0-32.0 [facility] Work Phone: MCHC Auto (RBC) [Mass/Vol]on 10-31-2021 MCHC (RBC) [Mass/Vol] 32.1 g/dL 32-36 [facility] Work Phone: No Panel Informationon 10-31 Estimated Creatinine Clearance Calc 38.97 ml/min [facility] Work Phone: Estimated GFR (MDRD) Amer 82 mL/min >60 [facility] Work Phone: Comment on above: GFR Calc Estimated GFR (MDRD) Non-Af Amer 68 mL/min >60 [facility] Work Phone: Comment on above: Non- GFR Calc Platelets bldon 10-31-2021 Platelets (Bld) [#/Vol] 196 10*3/uL 150-450 [facility] Work Phone: Serum or plasma albumin miguel angel urement (mass/volume)on 10-31-2021 Albumin [Mass/Vol] 3.1 g/dL 3.2-5.0 [facility] Work Phone: Serum or plasma albumin/glob ulin mass ratioon 10-31-2021 Albumin/Globulin [Mass ratio] 1.0 {ratio} 0.9-2.4 [facility] Work Phone: Serum or plasma calcium miguel angel urement (mass/volume)on 10-31-2021 Calcium [Mass/Vol] 8.3 mg/dL 8.5-10.1 [facility] Work Phone: Serum or plasma creatinine m easurement (mass/volume)on 10-31-2021 Creatinine [Mass/Vol] 0.85 mg/dL 0.55-1.02 [facility] Work Phone: Comment on above: The validity of the calculated GFR & GFRAA in patients over 70 years has not been determined. Clinical correlation is essential. Serum or plasma urea nitroge n measurement (mass/volume)on 10-31-2021 Urea nitrogen [Mass/Vol] 9 mg/dL 7-18 [facility] Work Phone: Thin prep Papanicolaou smear with manual screeningon 10-31-2021 Thin prep Papanicolaou smear with manual screening 24 U/L 15-37 [facility] Work Phone: Thin prep Papanicolaou smear with manual screening 6 5-15 [facility] Work Phone: Absolute lymphocyte counton 10-06-2021 Lymphocytes Auto (Unsp spec) [#/Vol] 2.75 10*3/uL 0.83-4.51 [facility] Work Phone: Basophil percentageon 2021 Basophils/100 WBC (Bld) 0.6 % 0-1 [facility] Work Phone: Chloride [Moles/Vol] 109 mmol/L 98-[address] [facility] Work Phone: Eosinophils/100 WBC (Bld) 3.4 % 0-5 [facility] Work Phone: Glucose [Mass/Vol] 100 mg/dL 74-106 [facility] Work Phone: Comment on above: Fasting Glucose resu lt from 100 to 125 mg/dL suggests IMPAIRED HOMEOSTASIS per A.D.A. criteria. Neutrophils (Bld) [#/Vol] 4.9 10*3/uL 2.0-7.7 [facility] Work Phone: Neutrophils/100 WBC (Bld) 57.4 % 47-70 [facility] Work Phone: [phone] Potassium [Moles/Vol] 3.8 mmol/L 3.5-5.1 [facility] Work Phone: Sodium [Moles/Vol] 140 mmol/L 136-145 [facility] Work Phone: [phone] WBC (Bld) [#/Vol] 8.5 10*3/uL 4.4-11.0 [facility] Work Phone: [phone] Blood erythrocytes count (nu mber/volume)on 10-06-2021 RBC (Bld) [#/Vol] 5.76 10*6/uL 4.2-5.4 [facility] Work Phone: [phone] Blood hemoglobin measurement (mass/volume)on 10-06-2021 Hemoglobin (Bld) [Mass/Vol] 15.4 g/dL 12.0-15.0 [facility] Work Phone: [phone] Blood lymphocytes/100 leukoc yteson 10-06-2021 Lymphocytes/100 WBC (Bld) 32.3 % 19-41 [facility] Work Phone: [phone] Blood monocytes/100 leukocyt eson 10-06-2021 Monocytes/100 WBC (Bld) 6.1 % 0-10 [facility] Work Phone: Blood platelet mean volumeon 10-06-2021 Platelet mean volume (Bld) [Entitic vol] 9.8 fL 6.2-12.0 [facility] Work Phone: Determination of erythrocyte mean corpuscular volume (MCV)on 10-06-2021 MCV (RBC) [Entitic vol] 86.5 fL 81-99 [facility] Work Phone: Hematocrit Auto (Bld) [Volum e fraction]on 10-06-2021 Hematocrit (Bld) [Volume fraction] 49.8 % 37-47 [facility] Work Phone: Laboratory - Chemistry and C hemistry - challengeon 10-06-2021 CO2 [Moles/Vol] 29.0 mmol/L 21.0-32.0 [facility] Work Phone: Urea nitrogen/Creatinine [Mass ratio] 10.8 mg/mg 10-20 [facility] Work Phone: Laboratory - Hematology and Cell countson 10-06-2021 Erythrocyte distribution width (RBC) [Entitic vol] 45.3 fL 35.1-43.9 [facility] Work Phone: Erythrocyte distribution width (RBC) [Ratio] 14.3 % 11.6-14.6 [facility] Work Phone: Immature granulocytes/100 WBC (Bld) 0.200 % 0.0-0.9 [facility] Work Phone: Comment on above: IG% - Immature Granu locytes (promyelocytes, myelocytes and metamyelocytes) > 1% indicates that a LEFT SHIFT is Present. MCH (RBC) [Entitic mass] 26.7 pg 27.0-32.0 [facility] Work Phone: Nucleated RBC/100 WBC (Bld) [Ratio] 0 % 0-5 [facility] Work Phone: MCHC Auto (RBC) [Mass/Vol]on 10-06-2021 MCHC (RBC) [Mass/Vol] 30.9 g/dL 32-36 [facility] Work Phone: No Panel Informationon 10-06 Estimated GFR (MDRD) Amer 84 mL/min >60 [facility] Work Phone: Comment on above: GFR Calc Estimated GFR (MDRD) Non-Af Amer 69 mL/min >60 [facility] Work Phone: Comment on above: Non- GFR Calc Thyroid Stimulating Hormone (TSH) 2.13 uIU/mL 0.358-3.74 [facility] Work Phone: Platelets bldon 10-06-2021 Platelets (Bld) [#/Vol] 253 10*3/uL 150-450 [facility] Work Phone: Serum or plasma calcium miguel angel urement (mass/volume)on 10-06-2021 Calcium [Mass/Vol] 9.3 mg/dL 8.5-10.1 [facility] Work Phone: Serum or plasma creatinine m easurement (mass/volume)on 10-06-2021 Creatinine [Mass/Vol] 0.83 mg/dL 0.55-1.02 [facility] Work Phone: Comment on above: The validity of the calculated GFR & GFRAA in patients over 70 years has not been determined. Clinical correlation is essential. Serum or plasma urea nitroge n measurement (mass/volume)on 10-06-2021 Urea nitrogen [Mass/Vol] 9 mg/dL 7-18 [facility] Work Phone: Thin prep Papanicolaou smear with manual screeningon 10-06-2021 Thin prep Papanicolaou smear with manual screening 2 5-15 [facility] Work Phone: CT Heart and Coronary arteri es for calcium scoring [facility] Total Calcium score of 0. Calcium [...] WO contrastOrdered By: Lashawn Shofu on 09-14-2021 [employer] Work Phone: CT Heart and Coronary arteri [...] bilateral pulmonary scarring within the imaged volume. [facility] Michele Andrade MD - 09/13/2021 FINDINGS: [...] report for details regarding coronary calcium scoring. [employer] CT Heart and Coronary arteri es for calcium scoring WO contrastOrdered By: Michele nAdrade on 09-12-2021 [employer] Work Phone: CT Heart and Coronary arteri es for calcium scoring WO contraston 09-11-2021 Radiology Study observation (narrative) [employer] FolateOrdered By: Tosha knight on 02-13-2021 Folate [Mass/Vol] 13.4 ng/mL [employer] Comment on above: Folate Reference Ran : >2.8 ng/mL . GLOMERULAR FILTRATION RATEOr dered By: Tosha Xavier on 02-13-2021 GFR >60 [employer] Comment on above: To estimate the GFR [...] [Mass/Vol] 4.4 g/dL 3.5 - 5.0 g/dL [facility] Alk Phos 105 U/L 24 - 126 U/L [facility] ALT [Catalytic activity/Vol] 22 U/L 4 - 35 U/L [facility] AST [Catalytic activity/Vol] 31 U/L 3 - 47 U/L [facility] Bilirubin [Mass/Vol] 0.9 mg/dL 0.2 - 1 .6 mg/dL [facility] Bilirubin.conjugated [Mass/Vol] 0.2 mg/dL 0.0 - 0.5 mg/dL [facility] Protein [Mass/Vol] 7.2 g/dL 6.3 - 8.2 g/dL [facility] IronOrdered By: Tosha Xavier on 02-13-2021 Iron [Mass/Vol] 122 ug/dL 37 - 170 ug/dL [facility] No Panel InformationOrdered By: Tosha Xavier on 02-13-2021 [facility] Renal function panelOrdered By: Tosha Xavier on 02-13-2021 Calcium [Mass/Vol] 9.7 mg/dL 8.4 - 10. 4 mg/dL [facility] Chloride [Moles/Vol] 100 mmol/L 96 - 10 9 mmol/L [facility] CO2 [Moles/Vol] 24 mmol/L 22 - 30 mmol/L [facility] Creatinine [Mass/Vol] 0.62 mg/dL 0.52 - 1.04 mg/dL [facility] Glucose [Mass/Vol] 93 mg/dL 65 - 100 mg/dL [facility] Phosphate [Mass/Vol] 3.5 mg/dL 2.5 - 4 .5 mg/dL [facility] Potassium [Moles/Vol] 4.6 mmol/L 3.6 - 5.1 mmol/L [facility] Sodium [Moles/Vol] 136 mmol/L 135 - 147 mmol/L [facility] Urea nitrogen [Mass/Vol] 13 mg/dL 8 - 20 mg/dL [facility] ReticulocytesOrdered By: Junie Xavier on 02-13-2021 Reticulocytes/100 RBC (Bld) 1.75 % 0.50 - 1.90 % [facility] Rheumatoid factorOrdered By: Tosha Xavier on 02-13-2021 Rheumatoid factor Qn [IU]/mL [facility] Sedimentation rateOrdered By : Tosha Xavier on 02-13-2021 Sed Rate 11 [facility] Total Iron Binding CapacityO rdered By: Tosha Xavier on 02-13-2021 Iron binding capacity [Mass/Vol] 373 ug/dL 265 - 497 ug/dL [facility] Uric acidOrdered By: Tosha li on 02-13-2021 Urate [Mass/Vol] 4.6 mg/dL 2.0 - 7.0 mg/dL [facility] Vitamin [id number] By: Tosha Xavier on 02-13-2021 Cobalamin (Vitamin B12) [Mass/Vol] 213 pg/mL Low 239 - 931 pg/mL [facility] Interpretation and review of laboratory results Abnormal [facility] Bilirubin, directon 07-19-20 Bilirubin.conjugated [Mass/Vol] 0.3 mg/dL 0 - 0.5 mg/dL [facility] CBC with Differentialon 06-29 Absolute [place] 0.5 [facility] Basophils (Bld) [#/Vol] 0.0 10*3/uL [facility] Basophils/100 WBC (Bld) 0.3 % [facility] Eosinophils (Bld) [#/Vol] 0.3 10*3/uL [facility] Eosinophils/100 WBC (Bld) 3.6 % [facility] Erythrocyte distribution width (RBC) [Ratio] 14.6 % High 11.5 - 14.5 % [facility] Hematocrit (Bld) [Volume fraction] 46.2 % 33.6 - 46.8 % [facility] Hemoglobin (Bld) [Mass/Vol] 14.1 g/dL 11.7 - 15.8 g/dL [facility] Interpretation and review of laboratory results Abnormal [facility] Lymphocytes (Bld) [#/Vol] 1.9 10*3/uL [facility] Lymphocytes/100 WBC (Bld) 27.0 % [facility] MCH (RBC) [Entitic mass] 28.0 pg 27.5 - 32.3 pg [facility] MCHC (RBC) [Mass/Vol] 30.5 g/dL Low 30.7 - 35.5 g/dl [facility] MCV (RBC) [Entitic vol] 91.7 fL 80.2 - 99 fL [facility] Monocytes/100 WBC (Bld) 7.7 % [facility] Neutrophils (Bld) [#/Vol] 4.2 10*3/uL [facility] Neutrophils/100 WBC (Bld) 61.4 % [facility] Platelets (Bld) [#/Vol] 249.0 10*3/uL [facility] RBC (Bld) [#/Vol] 5.04 10*6/uL [facility] WBC LM Ql (Sput) 6.9 [facility] Comprehensive metabolic pane rony 07-19-2020 Albumin [Mass/Vol] 4.1 g/dL 3.5 - 5 g/dL [facility] Alk Phos 93 U/L 24 - 126 U/L [facility] ALT [Catalytic activity/Vol] 34 U/L 4 - 35 U/L [facility] AST [Catalytic activity/Vol] 33 U/L 3 - 47 U/L [facility] Bilirubin [Mass/Vol] 0.7 mg/dL 0.2 - 1 .6 mg/dL [facility] Calcium [Mass/Vol] 9.6 mg/dL 8.4 - 10. 4 mg/dL [facility] Chloride [Moles/Vol] 105 mmol/L 96 - 10 9 mmol/L [facility] CO2 [Moles/Vol] 27 mmol/L 22 - 30 mmol/L [facility] Comprehensive metabolic 2000 panel 0.69 mg/dL 0.52 - 1.04 mg/dL [facility] Glucose [Mass/Vol] 96 mg/dL 65 - 100 mg/dL [facility] Potassium [Moles/Vol] 5.0 mmol/L 3.6 - 5.1 mmol/L [facility] Protein [Mass/Vol] 6.7 g/dL 6.3 - 8.2 g/dL [facility] Sodium [Moles/Vol] 140 mmol/L 135 - 147 mmol/L [facility] Urea nitrogen [Mass/Vol] 14 mg/dL 8 - 20 mg/dL [facility] GLOMERULAR FILTRATION RATEon 07-19-2020 GFR/1.73 sq M.predicted MDRD (S/P/Bld) [Vol rate/Area] mL/min/{1.73_m2} [facility] Comment on above: To estimate the GFR [...] 3.5 mg/dL 2.5 - 4 .5 mg/dL [facility] Rheumatoid factoron 07-19-20 20 Rheumatoid factor Qn [IU]/mL [facility] Sedimentation rateon 020 Sed Rate 6 [facility] Uric acidon 07-19-2020 Urate [Mass/Vol] 3.9 mg/dL 2 - 7 mg/dL [facility] T4, Freeon 02-11-2020 Free T4 [Mass/Vol] 1.00 ng/dL 0.78 - 2.19 ng/dL [facility] TSHon 02-11-2020 TSH Qn 2.550 m[IU]/L [facility] Bilirubin, directon 05-20-20 Bilirubin.conjugated [Mass/Vol] 0.5 mg/dL 0 - 0.5 mg/dL [facility] CBC with Differentialon 04-29 Absolute [place] 0.6 [facility] Basophils (Bld) [#/Vol] 0.0 10*3/uL [facility] Basophils/100 WBC (Bld) 0.2 % [facility] Eosinophils (Bld) [#/Vol] 1.0 10*3/uL High [facility] Eosinophils/100 WBC (Bld) 11.7 % [facility] Erythrocyte distribution width (RBC) [Ratio] 15.3 % High 11.5 - 14.5 % [facility] Hematocrit (Bld) [Volume fraction] 45.9 % 33.6 - 46.8 % [facility] Hemoglobin (Bld) [Mass/Vol] 14.0 g/dL 11.7 - 15.8 g/dL [facility] Interpretation and review of laboratory results Abnormal [facility] Lymphocytes (Bld) [#/Vol] 2.2 10*3/uL [facility] Lymphocytes/100 WBC (Bld) 25.7 % [facility] MCH (RBC) [Entitic mass] 28.5 pg 27.5 - 32.3 pg [facility] MCHC (RBC) [Mass/Vol] 30.5 g/dL Low 30.7 - 35.5 g/dl [facility] MCV (RBC) [Entitic vol] 93.5 fL 80.2 - 99 fL [facility] Monocytes/100 WBC (Bld) 7.3 % [facility] Neutrophils (Bld) [#/Vol] 4.7 10*3/uL [facility] Neutrophils/100 WBC (Bld) 55.1 % [facility] Platelets (Bld) [#/Vol] 337.0 10*3/uL [facility] RBC (Bld) [#/Vol] 4.91 10*6/uL [facility] WBC LM Ql (Sput) 8.5 [facility] Comprehensive metabolic pane l aka Metaboon 05-20-2019 Albumin [Mass/Vol] 3.8 g/dL 3.5 - 5 g/dL [facility] Alk Phos 102 U/L 24 - 126 U/L [facility] ALT [Catalytic activity/Vol] 27 U/L 4 - 35 U/L [facility] AST [Catalytic activity/Vol] 30 U/L 3 - 47 U/L [facility] Bilirubin [Mass/Vol] 0.7 mg/dL 0.2 - 1 .6 mg/dL [facility] Calcium [Mass/Vol] 10.0 mg/dL 8.4 - 10. 4 mg/dL [facility] Chloride [Moles/Vol] 106 mmol/L 96 - 10 9 mmol/L [facility] CO2 [Moles/Vol] 30 mmol/L 22 - 30 mmol/L [facility] Comprehensive metabolic 2000 panel 0.76 mg/dL 0.52 - 1.04 mg/dL [facility] Glucose [Mass/Vol] 100 mg/dL 65 - 100 mg/dL [facility] Interpretation and review of laboratory results Abnormal [facility] Potassium [Moles/Vol] 5.2 mmol/L High 3.6 - 5.1 mmol/L [facility] Protein [Mass/Vol] 6.5 g/dL 6.3 - 8.2 g/dL [facility] Sodium [Moles/Vol] 142 mmol/L 135 - 147 mmol/L [facility] Urea nitrogen [Mass/Vol] 10 mg/dL 8 - 20 mg/dL [facility] EKG 12-LEADon 05-20-2019 Stationary ECG Study Test Date: 2019-05-20 Pat Name: BRANDIE KISER Department: Room: Gender: Female Cdl A Driver: BETI : 1935 Requested By: Order Number: Reading MD: Philippe Ray Measurements Intervals Shannon Rate: 90 P: 55 AL: 139 QRS: 37 QRSD: 87 T: 37 QT: 349 QTc: 396 Interpretive Statements SINUS RHYTHM NORMAL ECG Electronically Signed On 05-20-2019 16:14:13 EDT by Philippe Ray [facility] GLOMERULAR FILTRATION RATEon 05-20-2019 GFR/1.73 sq M.predicted MDRD (S/P/Bld) [Vol rate/Area] mL/min/{1.73_m2} [employer] Comment on above: To estimate the GFR [...] 3.4 mg/dL 2.5 - 4 .5 mg/dL [employer] Otheron 05-20-2019 Linear atelectasis v ersus scarring in lingula. Otherwise, no radiographic evidence of acute cardiopulmonary process. [employer] EXAMINATION: TWO XRA Y VIEWS OF THE [...] quadrant partially. Osseous structures are grossly stable. [employer] Diomedes, Rad Results In - 05/20/2019 7:33 [...] no radiographic evidence of acute cardiopulmonary process. [facility] Protime-INRon 05-20-2019 INR Coag (PPP) [Relative time] 0.99 {INR} [facility] PT Coag (PPP) [Time] 10.0 s [facility] TSHon 05-20-2019 TSH Qn 2.220 m[IU]/L [facility] Bilirubin, directon 04-15-20 19 Bilirubin.conjugated [Mass/Vol] 0.4 mg/dL 0 - 0.5 mg/dL [facility] C-reactive protein (Inflamma tory)on 04-15-2019 CRP [Mass/Vol] mg/L 0 - 9.9 mg/L [facility] CBC with Differentialon 03-29 Absolute [place] 0.7 High [facility] Basophils (Bld) [#/Vol] 0.0 10*3/uL [facility] Basophils/100 WBC (Bld) 0.1 % [facility] Eosinophils (Bld) [#/Vol] 0.1 10*3/uL [facility] Eosinophils/100 WBC (Bld) 0.7 % [facility] Erythrocyte distribution width (RBC) [Ratio] 14.6 % High 11.5 - 14.5 % [facility] Hematocrit (Bld) [Volume fraction] 48.8 % High 33.6 - 46.8 % [facility] Hemoglobin (Bld) [Mass/Vol] 15.5 g/dL 11.7 - 15.8 g/dL [facility] Interpretation and review of laboratory results Abnormal [facility] Lymphocytes (Bld) [#/Vol] 1.7 10*3/uL [facility] Lymphocytes/100 WBC (Bld) 13.4 % [facility] MCH (RBC) [Entitic mass] 28.5 pg 27.5 - 32.3 pg [facility] MCHC (RBC) [Mass/Vol] 31.8 g/dL 30.7 - 35.5 g/dl [facility] MCV (RBC) [Entitic vol] 89.7 fL 80.2 - 99 fL [facility] Monocytes/100 WBC (Bld) 5.5 % [facility] Neutrophils (Bld) [#/Vol] 10.5 10*3/uL [facility] Neutrophils/100 WBC (Bld) 80.3 % [facility] Platelets (Bld) [#/Vol] 267.0 10*3/uL [facility] RBC (Bld) [#/Vol] 5.44 10*6/uL [facility] WBC LM Ql (Sput) 13.0 [facility] Comprehensive metabolic pane l aka Metaboon 04-15-2019 Albumin [Mass/Vol] 4.0 g/dL 3.5 - 5 g/dL [facility] Alk Phos 80 U/L 24 - 126 U/L [facility] ALT [Catalytic activity/Vol] 29 U/L 4 - 35 U/L [facility] AST [Catalytic activity/Vol] 23 U/L 3 - 47 U/L [facility] Bilirubin [Mass/Vol] 1.0 mg/dL 0.2 - 1 .6 mg/dL [facility] Calcium [Mass/Vol] 9.8 mg/dL 8.4 - 10. 4 mg/dL [facility] Chloride [Moles/Vol] 96 mmol/L 96 - 10 9 mmol/L [facility] CO2 [Moles/Vol] 28 mmol/L 22 - 30 mmol/L [facility] Comprehensive metabolic 2000 panel 0.73 mg/dL 0.52 - 1.04 mg/dL [facility] Glucose [Mass/Vol] 102 mg/dL High 65 - 100 mg/dL [facility] Interpretation and review of laboratory results Abnormal [facility] Potassium [Moles/Vol] 4.4 mmol/L 3.6 - 5.1 mmol/L [facility] Protein [Mass/Vol] 6.8 g/dL 6.3 - 8.2 g/dL [facility] Sodium [Moles/Vol] 135 mmol/L 135 - 147 mmol/L [facility] Urea nitrogen [Mass/Vol] 22 mg/dL High 8 - 20 mg/dL [facility] D-dimer, quantitativeon 03-29 Fibrin D-dimer FEU (PPP) [Mass/Vol] 0.33 [facility] Comment on above: Diagnostic Cutoff (P E/DVT): <=0.50mg/L (FEU) The results of this test should always be interpreted in conjunction with pretest probability assessment as a negative indicator for deep-vein thrombosis (DVT) or pulmonary embolism (PE). GLOMERULAR FILTRATION RATEon 04-15-2019 GFR/1.73 sq M.predicted MDRD (S/P/Bld) [Vol rate/Area] mL/min/{1.73_m2} [facility] Comment on above: To estimate the GFR [...] fraction] 5.6 % 0 - 6 % [facility] [facility] Comment on above: Reference Interval f or %A1c %A1c (NGSP) Interpretation <6.0% Non-Diabetic Range >6.5% Action Suggested . INORGANIC PHOSPHORUSon 04-15 Phosphate [Mass/Vol] 4.0 mg/dL 2.5 - 4 .5 mg/dL [facility] Ironon 04-15-2019 Iron [Mass/Vol] 169 ug/dL 37 - 170 ug/dL [facility] Rheumatoid factoron 04-15-20 19 Rheumatoid factor Qn [IU]/mL [facility] Sedimentation rateon 019 Sed Rate 2 [facility] Uric acidon 04-15-2019 Urate [Mass/Vol] 4.5 mg/dL 2 - 7 mg/dL [facility] ECG 12 Leadon 12-27-2017 Atrial Rate Invalid Interpretation Code [facility] P Shannon Invalid Interpretation Code [facility] P-R Interval Invalid Interpretation Code [facility] Q-T Interval Invalid Interpretation Code [facility] Q-T Interval (corrected) Invalid Interpretation Code [facility] QRS Duration Invalid Interpretation Code [facility] QTC Calculation (Bezet) Invalid Interpretation Code [facility] R Shannon Invalid Interpretation Code [facility] T Shannon Invalid Interpretation Code [facility] Ventricular Rate Invalid Interpretation Code [facility] ECHOCARDIOGRAM COMPLETEon ECHOCARDIOGRAM COMPLETE Transthoracic Echocardiogram ___Patient: SAMUEL Walker [facility] Rec#: [id number] (Age): 1935(82y) Height: 155(cm)/60(in) Study Date: 11/20/2017 Weight: 68(kg)/150(lbs)Room#: OP BSA: 1.67 Type: Inpatient Loc: CILSex: F Reading: Dimitri Noble MD, FAC Referring: REHAN HAIRSTON PATRICK Cdl A Driver: Margarita Driscoll [facility] History: GERD. Hypertension. Thyroid disease. Diagnosis: ICD-10-PCS Edema, unspecified (R60.9) [id number] (primary) hypertension (I10) Hypertension, unspecified withoutfailure (402.90) CPT Code(s): ECHO COMPLETE W/ DOPPLER (16264) Study Quality The study quality is fair. [...] 11:09:21 by: Dimitri Noble MD,FACC, PARUL SUH, [facility] Comment on above: Order Comment: PT/FX Echocardiogram completeon Echocardiogram complete Transthoracic Echocardiogram Patient: SAMUEL Walker [facility] Rec#: [id number] (Age): 1935(82y) Height: 155(cm)/60(in) Study Date: 11/20/2017 Weight: 68(kg)/150(lbs) Room#: BSA: 1.67 Type: Inpatient Loc: CIL Sex: F Reading: Dimitri Noble MD, FAC Referring: REHAN HAIRSTON PATRICK Cdl A Driver: Margarita Driscoll ROSY History: GERD. Hypertension. Thyroid disease. Diagnosis: ICD-10-PCS Edema, unspecified (R60.9) ICD-10-PCS Essential (primary) hypertension (I10) Hypertension, unspecified without failure (402.90) CPT Code(s): ECHO COMPLETE W/ DOPPLER (74796) Study Quality The study quality is fair. [...] [facility] RAD Echocardiogram complete Interface, Rad In [employer] [facility]2017 11:10 AM EDT Transthoracic Echocardiogram Patient: SAMUEL Walker [facility] Rec#: [id number] (Age): 1935(82y) Height: 155(cm)/60(in) Study Date: 11/20/2017 Weight: 68(kg)/150(lbs) Room#: OP BSA: 1.67 Type: Inpatient Loc: [facility] Sex: F Reading: Dimitri Noble MD, FAC Referring: REHAN HAIRSTON PATRICK Cdl A Driver: Margarita Driscoll RDCS History: GERD. Hypertension. Thyroid disease. Diagnosis: ICD-10-PCS Edema, unspecified (R60.9) ICD-10-PCS Essential (primary) hypertension (I10) Hypertension, unspecified without failure (402.90) CPT Code(s): ECHO COMPLETE W/ DOPPLER (72582) Study Quality The study quality is fair. [...] 08:56-0400 Body height 157.48 cm MAURA JESS RUBBER CALENDER HELPER Work Phone: [facility] 02-09-2025 08:56-0400 Body mass index (BMI) [Ratio] 28.1 kg/m2 MAURA LOPEZORD RUBBER CALENDER HELPER Work Phone: [facility] 02-09-2025 08:56-0400 Body temperature 98.4 [degF] MAURA JESS RUBBER CALENDER HELPER Work Phone: [facility] 02-09-2025 08:56-0400 Body weight 69.85 kg MAURA JESS RUBBER CALENDER HELPER Work Phone: [facility] 02-09-2025 08:56-0400 Diastolic blood pressure 71 mm[Hg] MAURA JESS RUBBER CALENDER HELPER Work Phone: [facility] 02-09-2025 08:56-0400 Heart rate 77 /min MAURA JESS RUBBER CALENDER HELPER Work Phone: [facility] 02-09-2025 08:56-0400 Respiratory rate 15 /min MAURA JESS RUBBER CALENDER HELPER Work Phone: [facility] 02-09-2025 08:56-0400 SaO2% (BldA) [Mass fraction] 95 % MAURA JESS RUBBER CALENDER HELPER Work Phone: [facility] 02-09-2025 08:56-0400 Systolic blood pressure 114 mm[Hg] MAURA JESS RUBBER CALENDER HELPER Work Phone: [facility] 12-24-2024 13:56-0400 Body height 157.5 cm Pollo Weeks MD Work Phone: [facility] [employer] 12-24-2024 13:56-0400 Body mass index (BMI) [Ratio] 28.39 kg/m2 Pollo Weeks MD Work Phone: [facility] [employer] 12-24-2024 13:56-0400 Body weight 70.4 kg Pollo Weeks MD Work Phone: [facility] [employer] 12-24-2024 13:56-0400 Diastolic blood pressure 65 mm[Hg] Pollo Weeks MD Work Phone: [facility] [employer] 12-24-2024 13:56-0400 Heart rate 74 /min Pollo Weeks MD Work Phone: [facility] [employer] 12-24-2024 13:56-0400 SaO2% (BldA) [Mass fraction] 95 % Pollo Weeks MD Work Phone: [facility] [employer] 12-24-2024 13:56-0400 Systolic blood pressure 102 mm[Hg] Pollo Weeks MD Work Phone: [facility] [employer] 11-19-2024 14:18-0400 Body temperature 97.5 [degF] Brandie Armenatffey DO Work Phone: [facility] [employer] 11-19-2024 14:18-0400 Diastolic blood pressure 80 mm[Hg] Brandie Skiffey DO Work Phone: [facility] [employer] 11-19-2024 14:18-0400 Heart rate 89 /min Brandie Skiffey DO Work Phone: [facility] [employer] 11-19-2024 14:18-0400 Respiratory rate 16 /min Brandie Skiffey DO Work Phone: [facility] [employer] 11-19-2024 14:18-0400 SaO2% (BldA) [Mass fraction] 94 % Brandie Skiffey DO Work Phone: [facility] [employer] 11-19-2024 14:18-0400 Systolic blood pressure 152 mm[Hg] Brandie Skiffey DO Work Phone: [facility] 11-19-2024 10:22-0400 Body height 157.5 cm Brandie Boyd DO Work Phone: [facility] 11-19-2024 10:22-0400 Body mass index (BMI) [Ratio] 32.56 kg/m2 Branide Boyd DO Work Phone: [facility] 11-19-2024 10:22-0400 Body weight 80.74 kg Brandie Boyd DO Work Phone: [facility] 10-15-2024 16:45-0400 SaO2% (BldA) [Mass fraction] 92 % MAURA MERCADO RUBBER CALENDER HELPER Work Phone: [facility] 10-15-2024 16:30-0400 Diastolic blood pressure 64 mm[Hg] MAURA JESS RUBBER CALENDER HELPER Work Phone: [facility] 10-15-2024 16:30-0400 Systolic blood pressure 138 mm[Hg] MAURA LOPEZORD RUBBER CALENDER HELPER Work Phone: [facility] 10-15-2024 14:22-0400 Body height 157.48 cm MAURA JESS RUBBER CALENDER HELPER Work Phone: [facility] 10-15-2024 14:22-0400 Body mass index (BMI) [Ratio] 29 kg/m2 MAURA JESS RUBBER CALENDER HELPER Work Phone: [facility] 10-15-2024 14:22-0400 Body temperature 97.9 [degF] MAURA MERCADO RUBBER CALENDER HELPER Work Phone: [facility] 10-15-2024 14:22-0400 Body weight 72.1 kg MAURA JESS RUBBER CALENDER HELPER Work Phone: [facility] 10-15-2024 14:22-0400 Heart rate 74 /min MAURA MERCADO RUBBER CALENDER HELPER Work Phone: [facility] 10-15-2024 14:22-0400 Respiratory rate 18 /min MAURA MERCADO RUBBER CALENDER HELPER Work Phone: [facility] 05-11-2024 10:40-0400 Body height 154.94 cm Michele Leon Work Phone: [facility] 05-11-2024 10:40-0400 Body mass index (BMI) [Ratio] 29.29 kg/m2 Michele Leon Work Phone: [facility] 05-11-2024 10:40-0400 Body weight 70.31 kg Michele Leon Work Phone: [facility] 12-26-2023 10:21-0400 Body height 157.5 cm Pollo Weeks MD Work Phone: [facility] 12-26-2023 10:21-0400 Body mass index (BMI) [Ratio] 32.56 kg/m2 Pollo Weeks MD Work Phone: [facility] 12-26-2023 10:21-0400 Body weight 80.74 kg Pollo Weeks MD Work Phone: [facility] 12-26-2023 10:21-0400 Diastolic blood pressure 88 mm[Hg] Pollo Weeks MD Work Phone: [facility] 12-26-2023 10:21-0400 Heart rate 95 /min Pollo Weeks MD Work Phone: [facility] 12-26-2023 10:21-0400 SaO2% (BldA) [Mass fraction] 96 % Pollo Weeks MD Work Phone: [facility] 12-26-2023 10:21-0400 Systolic blood pressure 136 mm[Hg] Pollo Weeks MD Work Phone: [facility] 11-29-2023 11:05-0400 Body height 157.48 cm RUBBER CALENDER HELPER-C Tosha Xavier RUBBER CALENDER HELPER Work Phone: [facility] 11-29-2023 11:05-0400 Body mass index (BMI) [Ratio] 28.7 kg/m2 RUBBER CALENDER HELPER-C Tosha Xavier RUBBER CALENDER HELPER Work Phone: [facility] 11-29-2023 11:05-0400 Body weight 71.21 kg RUBBER CALENDER HELPER-C Tosha Purkey RUBBER CALENDER HELPER Work Phone: [facility] 11-29-2023 11:05-0400 Diastolic blood pressure 78 mm[Hg] RUBBER CALENDER HELPER-C Tosha Purkey RUBBER CALENDER HELPER Work Phone: [facility] 11-29-2023 11:05-0400 Heart rate 85 /min RUBBER CALENDER HELPER-C Tosha Purkey RUBBER CALENDER HELPER Work Phone: [facility] 11-29-2023 11:05-0400 Respiratory rate 16 /min RUBBER CALENDER HELPER-C Tosha Purkey RUBBER CALENDER HELPER Work Phone: [facility] 11-29-2023 11:05-0400 SaO2% (BldA) [Mass fraction] 95 % RUBBER CALENDER HELPER-C Tosha Purkey RUBBER CALENDER HELPER Work Phone: [facility] 11-29-2023 11:05-0400 Systolic blood pressure 118 mm[Hg] RUBBER CALENDER HELPER-C Tosha Purkey RUBBER CALENDER HELPER Work Phone: [facility] 09-09-2023 10:46-0500 Body height 157.48 cm RUBBER CALENDER HELPER-C Tosha Purkey RUBBER CALENDER HELPER Work Phone: [facility] 09-09-2023 10:46-0500 Body mass index (BMI) [Ratio] 27.8 kg/m2 RUBBER CALENDER HELPER-C Tosha Purkey RUBBER CALENDER HELPER Work Phone: [facility] 09-09-2023 10:46-0500 Body weight 68.94 kg RUBBER CALENDER HELPER-C Tosha Purkey RUBBER CALENDER HELPER Work Phone: [facility] 09-09-2023 10:46-0500 Diastolic blood pressure 80 mm[Hg] RUBBER CALENDER HELPER-C Tosha Purkey RUBBER CALENDER HELPER Work Phone: [facility] 09-09-2023 10:46-0500 Heart rate 83 /min RUBBER CALENDER HELPER-C Tosha Purkey RUBBER CALENDER HELPER Work Phone: [facility] 09-09-2023 10:46-0500 Respiratory rate 18 /min RUBBER CALENDER HELPER-C Tosha Purkey RUBBER CALENDER HELPER Work Phone: [facility] 09-09-2023 10:46-0500 SaO2% (BldA) [Mass fraction] 95 % RUBBER CALENDER HELPER-C Tosha Purkey RUBBER CALENDER HELPER Work Phone: [facility] 09-09-2023 10:46-0500 Systolic blood pressure 120 mm[Hg] RUBBER CALENDER HELPER-C Tosha Purkey RUBBER CALENDER HELPER Work Phone: [facility] 2023 20:22-0500 Diastolic blood pressure 75 mm[Hg] RUBBER CALENDER HELPER-C Tosha Purkey RUBBER CALENDER HELPER Work Phone: [facility] 2023 20:22-0500 Heart rate 88 /min RUBBER CALENDER HELPER-C Tosha Purkey RUBBER CALENDER HELPER Work Phone: [facility] 2023 20:22-0500 Respiratory rate 21 /min RUBBER CALENDER HELPER-C Tosha Purkey RUBBER CALENDER HELPER Work Phone: [facility] 2023 20:22-0500 Systolic blood pressure 121 mm[Hg] RUBBER CALENDER HELPER-C Tosha Purkey RUBBER CALENDER HELPER Work Phone: [facility] 2023 18:26-0500 Body height 157.48 cm RUBBER CALENDER HELPER-C Tosha Purkey RUBBER CALENDER HELPER Work Phone: [facility] 2023 18:26-0500 Body mass index (BMI) [Ratio] 25.6 kg/m2 RUBBER CALENDER HELPER-C Tosha Purkey RUBBER CALENDER HELPER Work Phone: [facility] 2023 18:26-0500 Body temperature 95.2 [degF] RUBBER CALENDER HELPER-C Tosha Purkey RUBBER CALENDER HELPER Work Phone: [facility] 2023 18:26-0500 Body weight 63.5 kg RUBBER CALENDER HELPER-C Tosha Purkey RUBBER CALENDER HELPER Work Phone: [facility] 2023 18:26-0500 SaO2% (BldA) [Mass fraction] 95 % RUBBER CALENDER HELPER-C Tosha Purkey RUBBER CALENDER HELPER Work Phone: [facility] 08-12-2023 16:17-0500 Diastolic blood pressure 83 mm[Hg] RUBBER CALENDER HELPER-C Tosha Purkey RUBBER CALENDER HELPER Work Phone: [facility] 08-12-2023 16:17-0500 Heart rate 67 /min RUBBER CALENDER HELPER-C Tosha Purkey RUBBER CALENDER HELPER Work Phone: [facility] 08-12-2023 16:17-0500 Respiratory rate 17 /min RUBBER CALENDER HELPER-C Tosha Purkey RUBBER CALENDER HELPER Work Phone: [facility] 08-12-2023 16:17-0500 Systolic blood pressure 155 mm[Hg] RUBBER CALENDER HELPER-C Tosha Purkey RUBBER CALENDER HELPER Work Phone: [facility] 08-12-2023 12:38-0500 SaO2% (BldA) [Mass fraction] 95 % RUBBER CALENDER HELPER-C Tosha Purkey RUBBER CALENDER HELPER Work Phone: [facility] 08-12-2023 12:15-0500 Body height 157 cm RUBBER CALENDER HELPER-C Tosha Purkey RUBBER CALENDER HELPER Work Phone: [facility] 08-12-2023 12:15-0500 Body mass index (BMI) [Ratio] 25.7 kg/m2 RUBBER CALENDER HELPER-C Tosha Purkey RUBBER CALENDER HELPER Work Phone: [facility] 08-12-2023 12:15-0500 Body temperature 96.3 [degF] RUBBER CALENDER HELPER-C Tosha Purkey RUBBER CALENDER HELPER Work Phone: [facility] 08-12-2023 12:15-0500 Body weight 63.5 kg RUBBER CALENDER HELPER-C Tosha Purkey RUBBER CALENDER HELPER Work Phone: [facility] 05-01-2023 10:05-0400 Body mass index (BMI) [Ratio] 27.1 kg/m2 RUBBER CALENDER HELPER-C Tosha Purkey RUBBER CALENDER HELPER Work Phone: [facility] 05-01-2023 10:05-0400 Body weight 67.13 kg RUBBER CALENDER HELPER-C Tosha Purkey RUBBER CALENDER HELPER Work Phone: [facility] 05-01-2023 10:05-0400 Diastolic blood pressure 81 mm[Hg] RUBBER CALENDER HELPER-C Tosha Purkey RUBBER CALENDER HELPER Work Phone: [facility] 05-01-2023 10:05-0400 Heart rate 83 /min RUBBER CALENDER HELPER-C Tosha Purkey RUBBER CALENDER HELPER Work Phone: [facility] 05-01-2023 10:05-0400 Respiratory rate 16 /min RUBBER CALENDER HELPER-C Tosha Purkey RUBBER CALENDER HELPER Work Phone: [facility] 05-01-2023 10:05-0400 Systolic blood pressure 127 mm[Hg] RUBBER CALENDER HELPER-C Tosha Purkey RUBBER CALENDER HELPER Work Phone: [facility] 04-08-2023 17:43-0400 Body height 157.48 cm [facility] 04-08-2023 17:43-0400 Body mass index (BMI) [Ratio] 27.3 kg/m2 [facility] 04-08-2023 17:43-0400 Body temperature 96.9 [degF] [facility] 04-08-2023 17:43-0400 Body weight 67.72 kg [facility] 04-08-2023 17:43-0400 Diastolic blood pressure 87 mm[Hg] [facility] 04-08-2023 17:43-0400 Heart rate 85 /min [facility] 04-08-2023 17:43-0400 Respiratory rate 16 /min [facility] 04-08-2023 17:43-0400 SaO2% (BldA) [Mass fraction] 97 % [facility] 04-08-2023 17:43-0400 Systolic blood pressure 137 mm[Hg] [facility] 04-08-2023 02:22-0400 Diastolic blood pressure 86 mm[Hg] [facility] 04-08-2023 02:22-0400 Heart rate 81 /min [facility] 04-08-2023 02:22-0400 Respiratory rate 15 /min [facility] 04-08-2023 02:22-0400 SaO2% (BldA) [Mass fraction] 94 % [facility] 04-08-2023 02:22-0400 Systolic blood pressure 135 mm[Hg] [facility] 04-07-2023 22:52-0400 Body mass index (BMI) [Ratio] 27.3 kg/m2 [facility] 04-07-2023 22:52-0400 Body temperature 98.3 [degF] [facility] 04-07-2023 22:52-0400 Body weight 67.84 kg [facility] 05-28-2022 08:49-0400 Body height 157.48 cm RUBBER CALENDER HELPER-C Tosha Purkey RUBBER CALENDER HELPER Work Phone: [facility] Work Phone: 05-28-2022 08:49-0400 Body mass index (BMI) [Ratio] 26.3 kg/m2 RUBBER CALENDER HELPER-C Tosha Purkey RUBBER CALENDER HELPER Work Phone: [facility] Work Phone: 05-28-2022 08:49-0400 Body weight 65.31 kg RUBBER CALENDER HELPER-C Tosha Purkey RUBBER CALENDER HELPER Work Phone: [facility] Work Phone: 05-28-2022 08:49-0400 Diastolic blood pressure 79 mm[Hg] RUBBER CALENDER HELPER-C Tosha Purkey RUBBER CALENDER HELPER Work Phone: [facility] Work Phone: 05-28-2022 08:49-0400 Heart rate 84 /min RUBBER CALENDER HELPER-C Tosha Purkey RUBBER CALENDER HELPER Work Phone: [facility] Work Phone: 05-28-2022 08:49-0400 Respiratory rate 18 /min RUBBER CALENDER HELPER-C Tosha Purkey RUBBER CALENDER HELPER Work Phone: [facility] Work Phone: 05-28-2022 08:49-0400 SaO2% (BldA) [Mass fraction] 96 % RUBBER CALENDER HELPER-C Tosha Purkey RUBBER CALENDER HELPER Work Phone: [facility] Work Phone: 05-28-2022 08:49-0400 Systolic blood pressure 126 mm[Hg] RUBBER CALENDER HELPER-C Tosha Purkey RUBBER CALENDER HELPER Work Phone: [facility] Work Phone: 05-08-2022 16:14-0400 SaO2% (BldA) [Mass fraction] 97 % RUBBER CALENDER HELPER-C Tosha Purkey RUBBER CALENDER HELPER Work Phone: [facility] Work Phone: 05-08-2022 14:48-0400 Body temperature 99.1 [degF] RUBBER CALENDER HELPER-C Tosha Purkey RUBBER CALENDER HELPER Work Phone: [facility] Work Phone: 05-08-2022 14:48-0400 Diastolic blood pressure 74 mm[Hg] RUBBER CALENDER HELPER-C Tosha Purkey RUBBER CALENDER HELPER Work Phone: [facility] Work Phone: 05-08-2022 14:48-0400 Heart rate 81 /min RUBBER CALENDER HELPER-C Tosha Purkey RUBBER CALENDER HELPER Work Phone: [facility] Work Phone: 05-08-2022 14:48-0400 Respiratory rate 14 /min RUBBER CALENDER HELPER-C Tosha Purkey RUBBER CALENDER HELPER Work Phone: [facility] Work Phone: 05-08-2022 14:48-0400 Systolic blood pressure 120 mm[Hg] RUBBER CALENDER HELPER-C Tosha Purkey RUBBER CALENDER HELPER Work Phone: [facility] Work Phone: 05-08-2022 05:25-0400 Body weight 63.4 kg RUBBER CALENDER HELPER-C Tosha Purkey RUBBER CALENDER HELPER Work Phone: [facility] Work Phone: 05-07-2022 08:36-0400 Body height 157.48 cm RUBBER CALENDER HELPER-C Tosha Purkey RUBBER CALENDER HELPER Work Phone: [facility] Work Phone: 05-07-2022 08:36-0400 Body mass index (BMI) [Ratio] 25.6 kg/m2 RUBBER CALENDER HELPER-C Tosha Purkey RUBBER CALENDER HELPER Work Phone: [facility] Work Phone: 05-05-2022 19:41-0400 Body temperature 96.3 [degF] RUBBER CALENDER HELPER-C Tosha Purkey RUBBER CALENDER HELPER Work Phone: [facility] Work Phone: 05-05-2022 19:41-0400 Diastolic blood pressure 98 mm[Hg] RUBBER CALENDER HELPER-C Tosha Purkey RUBBER CALENDER HELPER Work Phone: [facility] Work Phone: 05-05-2022 19:41-0400 Heart rate 91 /min RUBBER CALENDER HELPER-C Tosha Purkey RUBBER CALENDER HELPER Work Phone: [facility] Work Phone: 05-05-2022 19:41-0400 Respiratory rate 18 /min RUBBER CALENDER HELPER-C Tosha Purkey RUBBER CALENDER HELPER Work Phone: [facility] Work Phone: 05-05-2022 19:41-0400 SaO2% (BldA) [Mass fraction] 96 % RUBBER CALENDER HELPER-C Tosha Purkey RUBBER CALENDER HELPER Work Phone: [facility] Work Phone: 05-05-2022 19:41-0400 Systolic blood pressure 128 mm[Hg] RUBBER CALENDER HELPER-C Tosha Purkey RUBBER CALENDER HELPER Work Phone: [facility] Work Phone: 05-05-2022 15:51-0400 Body height 157.48 cm RUBBER CALENDER HELPER-C Tosha Purkey RUBBER CALENDER HELPER Work Phone: [facility] Work Phone: 05-05-2022 15:51-0400 Body mass index (BMI) [Ratio] 25.6 kg/m2 RUBBER CALENDER HELPER-C Tosha Purkey RUBBER CALENDER HELPER Work Phone: [facility] Work Phone: 05-05-2022 15:51-0400 Body weight 63.5 kg RUBBER CALENDER HELPER-C Tosha Purkey RUBBER CALENDER HELPER Work Phone: [facility] Work Phone: 03-07-2022 13:57-0400 Body height 157.48 cm RUBBER CALENDER HELPER-C Tosha Purkey RUBBER CALENDER HELPER Work Phone: [facility] Work Phone: 03-07-2022 13:57-0400 Body mass index (BMI) [Ratio] 25.9 kg/m2 RUBBER CALENDER HELPER-C Tosha Purkey RUBBER CALENDER HELPER Work Phone: [facility] Work Phone: 03-07-2022 13:57-0400 Body weight 64.41 kg RUBBER CALENDER HELPER-C Tosha Purkey RUBBER CALENDER HELPER Work Phone: [facility] Work Phone: 03-07-2022 13:57-0400 Diastolic blood pressure 73 mm[Hg] RUBBER CALENDER HELPER-C Tosha Purkey RUBBER CALENDER HELPER Work Phone: [facility] Work Phone: 03-07-2022 13:57-0400 Heart rate 72 /min RUBBER CALENDER HELPER-C Tosha Purkey RUBBER CALENDER HELPER Work Phone: [facility] Work Phone: 03-07-2022 13:57-0400 Respiratory rate 18 /min RUBBER CALENDER HELPER-C Tosha Purkey RUBBER CALENDER HELPER Work Phone: [facility] Work Phone: 03-07-2022 13:57-0400 SaO2% (BldA) [Mass fraction] 96 % RUBBER CALENDER HELPER-C Tosha Purkey RUBBER CALENDER HELPER Work Phone: [facility] Work Phone: 03-07-2022 13:57-0400 Systolic blood pressure 123 mm[Hg] RUBBER CALENDER HELPER-C Tosha Purkey RUBBER CALENDER HELPER Work Phone: [facility] Work Phone: 02-26-2022 10:04-0400 Body height 157.48 cm RUBBER CALENDER HELPER-C Tosha Purkey RUBBER CALENDER HELPER Work Phone: [facility] Work Phone: 02-26-2022 10:04-0400 Body weight 64.86 kg RUBBER CALENDER HELPER-C Tosha Purkey RUBBER CALENDER HELPER Work Phone: [facility] Work Phone: 02-23-2022 11:10-0400 Body mass index (BMI) [Ratio] 26.2 kg/m2 RUBBER CALENDER HELPER-C Tosha Purkey RUBBER CALENDER HELPER Work Phone: [facility] Work Phone: 02-08-2022 13:56-0400 Body temperature 98.9 [degF] RUBBER CALENDER HELPER-C Tosha Purkey RUBBER CALENDER HELPER Work Phone: [facility] Work Phone: 02-08-2022 13:56-0400 Diastolic blood pressure 78 mm[Hg] RUBBER CALENDER HELPER-C Tosha Purkey RUBBER CALENDER HELPER Work Phone: [facility] Work Phone: 02-08-2022 13:56-0400 Heart rate 78 /min RUBBER CALENDER HELPER-C Tosha Purkey RUBBER CALENDER HELPER Work Phone: [facility] Work Phone: 02-08-2022 13:56-0400 Respiratory rate 14 /min RUBBER CALENDER HELPER-C Tosha Purkey RUBBER CALENDER HELPER Work Phone: [facility] Work Phone: 02-08-2022 13:56-0400 SaO2% (BldA) [Mass fraction] 99 % RUBBER CALENDER HELPER-C Tosha Purkey RUBBER CALENDER HELPER Work Phone: [facility] Work Phone: 02-08-2022 13:56-0400 Systolic blood pressure 116 mm[Hg] RUBBER CALENDER HELPER-C Tosha Purkey RUBBER CALENDER HELPER Work Phone: [facility] Work Phone: 02-08-2022 11:34-0400 Body height 157.48 cm RUBBER CALENDER HELPER-C Tosha Purkey RUBBER CALENDER HELPER Work Phone: [facility] Work Phone: 02-08-2022 11:34-0400 Body mass index (BMI) [Ratio] 27.6 kg/m2 RUBBER CALENDER HELPER-C Tosha Purkey RUBBER CALENDER HELPER Work Phone: [facility] Work Phone: 02-08-2022 11:34-0400 Body weight 68.5 kg RUBBER CALENDER HELPER-C Tosha Purkey RUBBER CALENDER HELPER Work Phone: [facility] Work Phone: 12-13-2021 12:48-0400 Body mass index (BMI) [Ratio] 26.2 kg/m2 RUBBER CALENDER HELPER-C Tosha Purkey RUBBER CALENDER HELPER Work Phone: [facility] Work Phone: 12-13-2021 12:48-0400 Body weight 64.86 kg RUBBER CALENDER HELPER-C Tosha Purkey RUBBER CALENDER HELPER Work Phone: [facility] Work Phone: 12-13-2021 12:48-0400 Diastolic blood pressure 75 mm[Hg] RUBBER CALENDER HELPER-C Tosha Purkey RUBBER CALENDER HELPER Work Phone: [facility] Work Phone: 12-13-2021 12:48-0400 Heart rate 67 /min RUBBER CALENDER HELPER-C Tosha Purkey RUBBER CALENDER HELPER Work Phone: [facility] Work Phone: 12-13-2021 12:48-0400 Respiratory rate 18 /min RUBBER CALENDER HELPER-C Tosha Purkey RUBBER CALENDER HELPER Work Phone: [facility] Work Phone: 12-13-2021 12:48-0400 SaO2% (BldA) [Mass fraction] 98 % RUBBER CALENDER HELPER-C Tosha Morenita RUBBER CALENDER HELPER Work Phone: [facility] Work Phone: 12-13-2021 12:48-0400 Systolic blood pressure 126 mm[Hg] RUBBER CALENDER HELPER-C Tosha Xavier RUBBER CALENDER HELPER Work Phone: [facility] Work Phone: 11-23-2021 15:23-0400 Heart rate 93 /min Dr. All Cast Work Phone: [facility] Work Phone: 11-23-2021 14:09-0400 Diastolic blood pressure 74 mm[Hg] Dr. All Cast Work Phone: [facility] Work Phone: 11-23-2021 14:09-0400 Systolic blood pressure 113 mm[Hg] Dr. All Cast Work Phone: [facility] Work Phone: 11-23-2021 13:59-0400 Body temperature 97.7 [degF] Dr. All Cast Work Phone: [facility] Work Phone: 11-23-2021 13:59-0400 Respiratory rate 16 /min Dr. All Cast Work Phone: [facility] Work Phone: 11-23-2021 13:59-0400 SaO2% (BldA) [Mass fraction] 94 % Dr. All Cast Work Phone: [facility] Work Phone: 11-23-2021 09:38-0400 Body height 157.[address] All Cast Work Phone: [facility] Work Phone: 11-23-2021 09:38-0400 Body mass index (BMI) [Ratio] 25.8 kg/m2 Dr. All Cast Work Phone: [facility] Work Phone: 11-23-2021 09:38-0400 Body weight [address] All Cast Work Phone: [facility] Work Phone: 10-31-2021 09:12-0400 Diastolic blood pressure 73 mm[Hg] Dr. All Cast Work Phone: [facility] Work Phone: 10-31-2021 09:12-0400 Heart rate 87 /min Dr. All Cast Work Phone: [facility] Work Phone: 10-31-2021 09:12-0400 Systolic blood pressure 112 mm[Hg] Dr. All Cast Work Phone: [facility] Work Phone: 10-31-2021 09:10-0400 Body temperature 97.9 [degF] Dr. All Cast Work Phone: [facility] Work Phone: 10-31-2021 09:10-0400 Respiratory rate 16 /min Dr. All Cast Work Phone: [facility] Work Phone: 10-31-2021 09:10-0400 SaO2% (BldA) [Mass fraction] 95 % Dr. All Cast Work Phone: [facility] Work Phone: 10-31-2021 07:22-0400 Inhaled oxygen flow rate 1 L/min MILTON Xavier NP Work Phone: [facility] Work Phone: 10-30-2021 09:15-0400 Body height 157.[address] All Cast Work Phone: [facility] Work Phone: 10-30-2021 09:15-0400 Body weight 66.[address] All Cast Work Phone: [facility] Work Phone: 10-20-2021 07:57-0400 Body mass index (BMI) [Ratio] 26.9 kg/m2 Dr. All Cast Work Phone: [facility] Work Phone: 10-06-2021 09:36-0500 Body mass index (BMI) [Ratio] 26.9 kg/m2 Dr. All Cast Work Phone: [facility] Work Phone: 10-06-2021 09:36-0500 Body weight 66.[address] All Cast Work Phone: [facility] Work Phone: 10-06-2021 09:36-0500 Diastolic blood pressure 83 mm[Hg] Dr. All Cast Work Phone: [facility] Work Phone: 10-06-2021 09:36-0500 Heart rate 86 /min Dr. All Cast Work Phone: [facility] Work Phone: 10-06-2021 09:36-0500 Respiratory rate 16 /min Dr. All Cast Work Phone: [facility] Work Phone: 10-06-2021 09:36-0500 SaO2% (BldA) [Mass fraction] 94 % Dr. All Cast Work Phone: [facility] Work Phone: 10-06-2021 09:36-0500 Systolic blood pressure 163 mm[Hg] Dr. All Cast Work Phone: [facility] Work Phone: 12-27-2017 15:25-0400 BP Diastolic 76 mm[Hg] [facility] 12-27-2017 15:25-0400 BP Systolic 116 mm[Hg] [facility] 12-27-2017 15:25-0400 Pulse (Heart Rate) 101 /min [facility] 12-27-2017 15:20-0400 BMI (Body Mass Index) 27.87 kg/m2 [facility] 12-27-2017 15:20-0400 Height 157.5 cm [facility] 12-27-2017 15:20-0400 Weight 69.13 kg [facility] Encounters Encounter Date Encounter Type Care Provider Facility Start: 04-28-2025 ambulatory Rudolph Smith Facilit y:[facility] Start: 04-19-2025 End: 04-19-2025 ambulatory [facility] Facility: Start: 04-14-2025 ambulatory Rudolph Smith Facilit y:[facility] Start: 03-02-2025 End: 03-02-2025 ambulatory Muara Mercado RUBBER CALENDER HELPER-C Work Phone: -[facility] Start: 03-02-2025 End: 03-02-[address] Rudolph Smith MD -[facility] Work Phone: Start: 03-02-2025 End: 03-02-2025 ambulatory Rudolph Oseimelonie Facility:[facility] Start: 02-09-2025 End: 02-09-[address] Rudolph Smith MD -[facility] Work Phone: Start: 02-09-2025 End: 02-09-2025 ambulatory MAURA MERCADO RUBBER CALENDER HELPER Work Phone: -[facility] Start: 12-24-2024 End: 12-24-2024 ambulatory POLLO WEEKS [facility] Start: 12-24-2024 End: 12-24-2024 Office outpatient visit 25 minutes Pollo Weeks MD Work Phone: [facility] [place] Comment on above: Syncope, unspecified syncope type (Primary Dx) Start: 11-18-2024 End: 11-19-2024 [facility] Start: 11-18-2024 End: 11-19-2024 Emergency department patient visit Brandie Boyd DO Work Phone: [facility] Progressive [facility] Unit PCU 3W Comment on above: Syncope, unspecified syncope type (Primary Dx); Chest pain, unspecified type; Right foot drop Start: 11-16-2024 ambulatory Maura Mercado Facilit y:[facility] Start: 11-16-2024 Registered Referred Maura Mercado RUBBER CALENDER HELPER-C -Cardiovascular Services Work Phone: Start: 11-16-2024 ambulatory All Cast Facility:[facility] Start: 11-16-2024 Non-patient / Non-visit [facility] Work Phone: Start: 10-27-2024 ambulatory Tosha Crandallsamina Facility:[facility] Start: 10-15-2024 End: 10-15-2024 Emergency department patient visit MAURA MERCADO NP Work Phone: -Emergency Department Work Phone: Start: 08-07-2024 End: 08-10-2024 ambulatory TIFFANI [facility] Start: 08-06-2024 ambulatory Alysia Stewart RUBBER CALENDER HELPER Facilit y:[facility] Start: 08-02-2024 End: 08-02-2024 Emergency department patient visit DENIS MATTHEW [facility] Start: 05-11-2024 End: 05-11-2024 Office outpatient new 30 minutes Michele Leon Work Phone: [facility] Start: 05-07-2024 End: 05-07-2024 Encounter identifier Michele Leon Work Phone: [facility] Start: 04-17-2024 End: 07-17-2024 ambulatory MAURA MERCADO Facility:[facility] Start: 04-01-2024 End: 04-01-2024 ambulatory MAURA MERCADO Facility:[facility] Start: 03-31-2024 End: 03-31-2024 ambulatory JOVANI MORALES DIGITAL MEDIA DIRECTOR~[id number] Facility:[facility] Start: 12-26-2023 End: 12-26-2023 Office outpatient new 45 minutes Pollo Weeks MD Work Phone: [facility] Comment on above: Shortness of breath Start: 11-29-2023 End: 11-29-2023 ambulatory RUBBER CALENDER HELPER-C Tosha Xavier RUBBER CALENDER HELPER Work Phone: [facility] Work Phone: Start: 11-29-2023 End: 11-29-2023 Patient encounter procedure RUBBER CALENDER HELPER-C Tosha Xavier RUBBER CALENDER HELPER Work Phone: [facility] Work Phone: Start: 11-21-2023 End: 11-21-2023 ambulatory TOSHA XAVIER [facility] Start: 09-09-2023 End: 09-09-2023 ambulatory RUBBER CALENDER HELPER-C Tosha Xavier RUBBER CALENDER HELPER Work Phone: [facility] Work Phone: Start: 09-09-2023 End: 09-09-2023 Patient encounter procedure RUBBER CALENDER HELPER-C Tosha Xavier RUBBER CALENDER HELPER Work Phone: [facility]-Laboratory Work Phone: Start: 09-09-2023 End: 09-09-2023 Patient encounter procedure RUBBER CALENDER HELPER-C Tosha Xavier RUBBER CALENDER HELPER Work Phone: [facility] Work Phone: Start: 2023 End: 2023 Emergency department patient visit RUBBER CALENDER HELPER-C Tosha Xavier RUBBER CALENDER HELPER Work Phone: [facility]-Emergency Department Work Phone: Start: 08-12-2023 End: 08-12-2023 Emergency department patient visit RUBBER CALENDER HELPER-C Tosha Xavier RUBBER CALENDER HELPER Work Phone: [facility]-Emergency Department Work Phone: Start: 05-01-2023 End: 05-01-2023 Patient encounter procedure RUBBER CALENDER HELPER-C Tosha Xavier RUBBER CALENDER HELPER Work Phone: [facility] Work Phone: Start: 04-08-2023 Evaluation and manag ement of inpatient [facility]-Medical Surgical 3 Work Phone: Start: 04-08-2023 observation encounter [facility] Work Phone: Start: 04-07-2023 End: 04-08-2023 Emergency department patient visit [facility]-Emergency Department Work Phone: Start: 04-07-2023 End: 04-07-2023 Emergency department patient visit TOSHA XAVIER [facility] Start: 10-16-2022 End: 10-16-2022 Subsequent hospital visit by physician Tosha Xavier [employer]IPAL Work Phone: [facility] Comment on above: Chest discomfort; Malaise Arrived Start: 06-15-2022 Non-patient / Non-visit RUBBER CALENDER HELPER-C Rodolfo Xavier RUBBER CALENDER HELPER Work Phone: [facility] Start: 06-15-2022 End: 06-15-2022 ambulatory RUBBER CALENDER HELPER-C Tosha Xavier RUBBER CALENDER HELPER Work Phone: [facility] Work Phone: Start: 06-15-2022 End: 06-15-2022 Patient encounter procedure RUBBER CALENDER HELPER-C Tosha Xavier RUBBER CALENDER HELPER Work Phone: [facility]-Cardiovascula r Services Start: 05-28-2022 End: 05-28-2022 Patient encounter procedure RUBBER CALENDER HELPER-C Tosha Xavier RUBBER CALENDER HELPER Work Phone: [facility] Start: 05-08-2022 Non-patient / Non-visit RUBBER CALENDER HELPER-C A nna Purkey RUBBER CALENDER HELPER Work Phone: [facility] Start: 05-07-2022 Non-patient / Non-visit RUBBER CALENDER HELPER-C A nna Purkey RUBBER CALENDER HELPER Work Phone: [facility] Start: 05-07-2022 Non-patient / Non-visit RUBBER CALENDER HELPER-C A nna Purkey RUBBER CALENDER HELPER Work Phone: [facility] Start: 05-06-2022 End: 05-08-2022 Evaluation and management of inpatient RUBBER CALENDER HELPER-C Tosha Xavier RUBBER CALENDER HELPER [facility] Start: 05-06-2022 Non-patient / Non-visit RUBBER CALENDER HELPER-C A nna Purkey RUBBER CALENDER HELPER Work Phone: [facility] Start: 05-06-2022 Non-patient / Non-visit RUBBER CALENDER HELPER-C A nna Purkey RUBBER CALENDER HELPER Work Phone: [facility] Start: 05-05-2022 Evaluation and manag ement of inpatient RUBBER CALENDER HELPER-C Tosha Xavier RUBBER CALENDER HELPER [facility] Start: 05-05-2022 observation encounter RUBBER CALENDER HELPER-C Junie Xavier RUBBER CALENDER HELPER Work Phone: [facility] Work Phone: Start: 05-05-2022 Non-patient / Non-visit RUBBER CALENDER HELPER-C A nna Purkey RUBBER CALENDER HELPER Work Phone: [facility] Start: 04-04-2022 End: 04-04-2022 Subsequent hospital visit by physician Tosha Xavier [employer]AL Work Phone: [facility] Start: 03-30-2022 End: 03-30-2022 ambulatory RUBBER CALENDER HELPER-C Tosha Xavier RUBBER CALENDER HELPER Work Phone: [facility] Work Phone: Start: 03-30-2022 End: 03-30-2022 Patient encounter procedure RUBBER CALENDER HELPER-C Tosha Xavier RUBBER CALENDER HELPER Work Phone: [place] Start: 03-20-2022 End: 03-20-2022 Subsequent hospital visit by physician Tosha Xavier [employer]IPAL Work Phone: [facility] Start: 03-07-2022 End: 03-07-2022 Patient encounter procedure RUBBER CALENDER HELPER-C Tosha Xavier RUBBER CALENDER HELPER Work Phone: [facility] Start: 02-26-2022 Non-patient / Non-visit RUBBER CALENDER HELPER-C Rodolfo Xavier RUBBER CALENDER HELPER Work Phone: [facility] Start: 02-26-2022 End: 02-26-2022 Admission to same day surgery center RUBBER CALENDER HELPER-C Tosha Xavier RUBBER CALENDER HELPER Work Phone: [facility]-Spreader Operator Automatic/Special Procedures Start: 02-20-2022 Non-patient / Non-visit RUBBER CALENDER HELPER-C Rodolfo Xavier RUBBER CALENDER HELPER Work Phone: [facility] Start: 02-20-2022 End: 02-20-2022 Patient encounter procedure RUBBER CALENDER HELPER-C Tosha Xavier RUBBER CALENDER HELPER Work Phone: [facility]-Cardiovascula r Services Start: 02-08-2022 End: 02-08-2022 Emergency department patient visit RUBBER CALENDER HELPER-C Tosha Xavier RUBBER CALENDER HELPER Work Phone: [facility]-Emergency Department Start: 12-13-2021 End: 12-13-2021 Patient encounter procedure RUBBER CALENDER HELPER-C Tosha Xavier RUBBER CALENDER HELPER Work Phone: [facility]-Laboratory Start: 12-13-2021 End: 12-13-2021 Patient encounter procedure RUBBER CALENDER HELPER-C Tosha Xavier RUBBER CALENDER HELPER Work Phone: [facility] Start: 11-23-2021 Non-patient / Non-visit Dr. Niko Cast Work Phone: [facility] Start: 11-23-2021 Non-patient / Non-visit Dr. Niko Cast Work Phone: [facility] Start: 11-23-2021 Non-patient / Non-visit Dr. Niko Cast Work Phone: [facility] Start: 11-22-2021 Non-patient / Non-visit Dr. Niko Cast Work Phone: [facility] Start: 11-22-2021 End: 11-23-2021 Evaluation and management of inpatient Dr. All Cast [facility] Start: 11-22-2021 Non-patient / Non-visit Dr. Niko Cast Work Phone: [facility] Start: 11-10-2021 End: 11-10-[address] All Cast [facility] Phone[facility] Start: 11-10-2021 Non-patient / Non-visit Dr. Niko Cast Work Phone: [facility] Start: 10-31-2021 Non-patient / Non-visit Dr. Niko Cast Work Phone: [facility] Start: 10-30-2021 Non-patient / Non-visit Dr. Niko Cast Work Phone: [facility] Start: 10-30-2021 End: 10-31-2021 Evaluation and management of inpatient Dr. All Cast [facility] Start: 10-06-2021 End: 10-06-[address] All Cast Work Phone: [facility]-Laboratory Start: 10-06-2021 End: 10-06-[address] All Cast Work Phone: [facility] Start: 09-11-2021 End: 09-11-2021 Subsequent hospital visit by physician Lucho Vo DO Work Phone: [facility] Comment on above: SOB (shortness of br eath); Chest pain, unspecified type; Anginal equivalent (HCC) Start: 08-22-2021 Transcribe Orders Tosha mtz [employer]IPAL Work Phone: [facility] Comment on above: Tricuspid valve insu fficiency, unspecified etiology (Primary Dx) Start: 02-14-2021 End: 02-14-2021 Subsequent hospital visit by physician Tosha Xavier CNP Work Phone: [facility][note 3] Imaging Comment on above: Pain in right hand Start: 02-13-2021 End: 02-13-2021 Subsequent hospital visit by physician Tosha Xavier CNP Work Phone: [facility] Start: 08-12-2020 End: 08-12-2020 Orders Only Alexia Figueredo Litoyeny Work Phone: [facility] Start: 07-19-2020 End: 07-19-2020 Subsequent hospital visit by physician Tosha Xavier Work Phone: [facility] Start: 02-11-2020 End: 02-11-2020 Subsequent hospital visit by physician Vielka Nicholas Work Phone: [facility][note 3] Lab Draw Center Comment on above: Subclinical hypothyr oidism Start: 05-20-2019 End: 05-20-2019 Subsequent hospital visit by physician Tosha Xavier Work Phone: [facility] Start: 05-20-2019 End: 05-20-2019 Subsequent hospital visit by physician Tosha Xavier Work Phone: [facility] PreAdmission Testing Comment on above: Arrived Start: 04-15-2019 End: 04-15-2019 Subsequent hospital visit by physician Tosha Xavier Work Phone: [facility] Start: 12-27-2017 End: 12-27-2017 Ambulatory DARNELL HILLMAN [facility] Start: 12-27-2017 End: 12-27-2017 Office/outpatient visit, new, level 3 Darnell Hillman Work Phone: [facility] Start: 11-20-2017 End: 11-21-2017 Ambulatory [facility] Start: 11-20-2017 End: 11-20-2017 Ambulatory [facility] Work Phone: [facility] Cardiac Non-Invasive Lab Procedures Date Procedure Procedure Detail Performing Clinician Start: 03-02-2025 Urine lambda light c andrés measurement Maura Mercado RUBBER CALENDER HELPER-C Work Phone: Start: 11-19-2024 Cerebral perfusion a [...] CT of head without contrast MAURA LOPEZORD RUBBER CALENDER HELPER Work Phone: Start: 05-11-2024 End: 05-11-2024 Radex hand minimum 3 views Michele husain PA-C Start: 05-06-2024 Thyrotropin [Units/v olume] in Serum or Plasma Brandie Boyd DO Work Phone: Start: 12-26-2023 Ecg routine ecg w/le ast 12 lds w/i&r Pollo Weeks MD Work Phone: Start: 12-16-2023 Thyrotropin [Units/v olume] in Serum or Plasma Pollo Weeks MD Work Phone: Start: 08-12-2023 Plain chest X-ray RUBBER CALENDER HELPER-C Tosha Xavier NP Work Phone: Start: 04-07-2023 Computed tomography of abdomen and pelvis with intravenous contrast Start: 04-07-2023 Urinalysis TOSHA Knight Comment on above: Result Comment: URIN ALYSIS Performed By: #### [id number] #### [facility],[address] [place] [address] Start: 10-16-2022 Ecg routine ecg w/le ast 12 lds trcg only w/o i&r Tosha Xavier [employer] Work Phone: Start: 10-16-2022 Radiologic exam ches t 2 views Tosha Xavier [employer] Work Phone: Start: 10-10-2022 Colonoscopy RUBBER CALENDER HELPER-C Tosha Purkey RUBBER CALENDER HELPER Work Phone: Start: 04-04-2022 CBC W Auto Different ial panel - Blood Tosha Nunez Morenita [employer] Work Phone: Start: 03-30-2022 Ultrasonography of abdomen RUBBER CALENDER HELPER-C Tosha Morenita RUBBER CALENDER HELPER Work Phone: Start: 02-20-2022 Cardiovascular stres s test using pharmacologic stress agent RUBBER CALENDER HELPER-C Tosha Xavier RUBBER CALENDER HELPER Work Phone: Start: 02-08-2022 CT angiography of ch est with contrast RUBBER CALENDER HELPER-C Tosha Xavier RUBBER CALENDER HELPER Work Phone: Start: 02-08-2022 Plain chest X-ray RUBBER CALENDER HELPER-C Tosha Xavier RUBBER CALENDER HELPER Work Phone: Start: 11-23-2021 End: 11-23-2021 Viral [...] 02-13-2021 GLOMERULAR FILTRATION RATE Tosha Nunez Morenita [employer] Work Phone: Start: 02-13-2021 Hepatic function panel Tosha Xavier [employer] Work Phone: Start: 02-13-2021 Renal function panel An luana Xavier [employer] Work Phone: Start: 07-19-2020 Assay of blood/uric [...] Start: 05-20-2019 CBC WITH DIFFERENTIAL A jasmyn Xavier Work Phone: Start: 05-20-2019 Comprehensive metabo lic [...] 02-13-2013 Mammography Tosha knight Viral antigen assay RUBBER CALENDER HELPER-C Junie Xavier RUBBER CALENDER HELPER Work Phone: Plan of Treatment Date Care Activity Detail Author Start: 11-19-2029 Lipid panel Lipid Panel [facility] Start: 01-30-2029 Administration of diphtheria + tetanus + acellular pertussis vaccine DTAP/TDAP/TD VACCINE (2 - Tdap) [facility] Start: 01-30-2029 Diphtheria + pertussis + tetanus vaccine (product) DTAP/TDAP/TD VACCINE (2 - Tdap) [facility] Start: 01-30-2029 Tetanus, diphtheria and acellular pertussis vaccination TDAP/TD ADULT [facility] Start: 12-27-2025 End: 12-27-2025 Patient encounter procedure 12/27/2025 1:20 PM EDT Office Visit [address] [id number] Pollo Weeks MD [address] [place] [address] [facility] Start: 10-30-2025 Colonoscopy COLON CANCER SCREENING 10 YEAR COLONOSCOPY [facility] Start: 05-06-2025 Thyroid stimulating hormone measurement TSH Level [facility] Start: 04-28-2025 [facility] Start: 04-14-2025 [facility] Start: 03-29-2025 Influenza vaccination Influenza Vaccine (Season Ended) [facility] Start: 12-15-2024 Thyroid stimulating hormone measurement TSH Level [facility] Start: 12-10-2024 End: 12-10-2024 Patient encounter procedure [facility] Start: 10-15-2024 [facility] Start: 10-15-2024 Simple repair f/e/e/n/l/m 2.5cm/< RPR F/E/E/N/L/M 2.5 CM/< [facility] Start: 07-29-2024 Medicare Advantage Annual Wellness Visit Medicare Advantage Annual Wellness Visit [facility] Start: 05-11-2024 Patient referral [facility] Start: 03-29-2024 COVID-19 Vaccine ( season) COVID-19 Vaccine ( season) [facility] Start: 2023 Blood chemistry [facility] Start: 2023 End: 2023 [facility] Start: 08-12-2023 [facility] Start: 08-12-2023 [facility] Start: 07-29-2023 Medicare Advantage Annual Wellness Visit Medicare Advantage Annual Wellness Visit [facility] Start: 04-09-2023 End: 04-09-2023 [facility] Start: 04-09-2023 Blood chemistry [facility] Start: 04-08-2023 End: 04-09-2023 [facility] Start: 04-08-2023 Application of intermittent pneumatic compression device [facility] Start: 04-08-2023 Following clinical pathway protocol [facility] Start: 04-08-2023 Assessment of risk of venous thromboembolism [facility] Start: 04-08-2023 Insertion of catheter into peripheral vein [facility] Start: 04-08-2023 Oxygen therapy [facility] Start: 04-08-2023 Providing care according to standard [facility] [facility] Start: 04-08-2023 Provision of activity privileges [facility] Start: 04-08-2023 Referral to gastroenterology service [facility] Start: 04-08-2023 Verification routine [facility] Start: 04-08-2023 Admission procedure [facility] Start: 04-04-2023 Thyroid stimulating hormone measurement TSH [facility] Start: 05-08-2022 Patient discharge [facility] Work Phone: Start: 05-08-2022 COVID-19 VACCINE (5 - Booster for Moderna series) COVID-19 VACCINE (5 - Booster for Moderna series) [facility] Start: 05-07-2022 Administration of blood product [facility] Work Phone: Start: 05-07-2022 Transfusion of red blood cells [facility] Work Phone: Start: 05-06-2022 Admission procedure [facility] Work Phone: Start: 05-06-2022 [facility] Work Phone: Start: 05-06-2022 Catheterization of vein [facility] Work Phone: Start: 05-05-2022 Application of intermittent pneumatic compression device [facility] Work Phone: Start: 05-05-2022 End: 05-05-2022 Following clinical pathway protocol [facility] Work Phone: Start: 05-05-2022 Assessment of risk of venous thromboembolism [facility] Work Phone: Start: 05-05-2022 Fall prevention [facility] Work Phone: Start: 05-05-2022 Insertion of catheter into peripheral vein [facility] Work Phone: Start: 05-05-2022 Introduction of urinary catheter [facility] Work Phone: Start: 05-05-2022 Measuring intake and output [facility] Work Phone: Start: 05-05-2022 Oxygen therapy [facility] Work Phone: Start: 05-05-2022 Providing care according to standard [facility] Work Phone: Start: 05-05-2022 Provision of activity privileges [facility] Work Phone: Start: 05-05-2022 Referral to gastroenterology service [facility] Work Phone: Start: 05-05-2022 Referral to service [facility] Work Phone: Start: 05-05-2022 [facility] Work Phone: Start: 05-05-2022 Admission procedure [facility] Work Phone: Start: 05-05-2022 Patient referral to dietitian [facility] Work Phone: Start: 03-29-2022 Influenza vaccination given INFLUENZA VACCINE (#1) [facility] Start: 02-08-2022 Troponin I measurement [facility] Work Phone: Start: 02-08-2022 [facility] Work Phone: Start: 11-23-2021 Patient discharge [facility] Work Phone: Start: 11-22-2021 [facility] Work Phone: Start: 11-22-2021 Catheterization of vein [facility] Work Phone: Start: 11-22-2021 Notification of physician [facility] Work Phone: Start: 11-22-2021 Oxygen therapy [facility] Work Phone: Start: 11-22-2021 Application of intermittent pneumatic compression device [facility] Work Phone: Start: 11-22-2021 Assessment of risk of venous thromboembolism [facility] Work Phone: Start: 11-22-2021 Insertion of catheter into peripheral vein [facility] Work Phone: Start: 11-22-2021 Measuring intake and output [facility] Work Phone: Start: 11-22-2021 Providing care according to standard [facility] Work Phone: Start: 11-22-2021 Referral to steel manager [facility] Work Phone: Start: 11-22-2021 Referral to gastroenterology service [facility] Work Phone: Start: 11-22-2021 Referral to occupational therapist [facility] Work Phone: Start: 11-22-2021 Referral to service [facility] Work Phone: Start: 11-22-2021 [facility] Work Phone: Start: 11-22-2021 Following clinical pathway protocol [facility] Work Phone: Start: 11-22-2021 Admission procedure [facility] Work Phone: Start: 11-22-2021 Colonoscopy flx dx w/collj spec when pfrmd DIAGNOSTIC COLONOSCOPY [facility] Work Phone: Start: 11-22-2021 Esophagogastroduodenoscopy transoral diagnostic EGD DIAGNOSTIC BRUSH WASH [facility] Work Phone: Start: 10-31-2021 Patient discharge [facility] Work Phone: Start: 10-30-2021 Patient referral [facility] Work Phone: Start: 10-30-2021 Cardiac monitoring [facility] Work Phone: Start: 10-30-2021 Cardiac rehabilitation - phase 1 [facility] Work Phone: Start: 10-30-2021 Notification of physician [facility] Work Phone: Start: 10-30-2021 Oxygen therapy [facility] Work Phone: Start: 10-30-2021 Patient discharge [facility] Work Phone: Start: 10-30-2021 Systemic arterial pressure monitoring [facility] Work Phone: Start: 10-30-2021 Taking patient vital signs [facility] Work Phone: Start: 10-30-2021 Vascular disease risk assessment [facility] Work Phone: Start: 10-30-2021 Vital signs measurements [facility] Work Phone: Start: 10-30-2021 [facility] Work Phone: Start: 10-30-2021 Admission procedure [facility] Work Phone: Start: 10-30-2021 Insertion of catheter into peripheral vein [facility] Work Phone: Start: 10-30-2021 Measuring intake and output [facility] Work Phone: Start: 10-30-2021 Providing care according to standard [facility] Work Phone: Start: 10-30-2021 [facility] Work Phone: Start: 10-11-2021 End: 10-11-2021 Patient encounter procedure 10/11/2021 Office Visit Cardiology [facility] Start: 03-29-2021 Influenza vaccination Sequential Influenza Vaccine (#1) [facility] Start: 03-29-2021 Influenza vaccination given [facility] Start: 02-12-2021 COVID-19 VACCINE (3 - Booster for Moderna series) COVID-19 VACCINE (3 - Booster for Moderna series) [facility] Start: 02-10-2021 Thyroid stimulating hormone measurement TSH [facility] Start: 02-10-2021 TSH Qn TSH [facility] Start: 01-23-2021 End: 01-23-2021 Office Visit 01/23/2021 Office Visit Endocrinology Vielka Nicholas MD [address] [place] [address] [phone] [facility] Start: 01-11-2021 End: 01-11-2021 Office Visit 01/11/2021 Office Visit Endocrinology Vielka Nicholas MD [address] [place] [address] [phone] [facility] Start: 05-20-[address] [facility] Start: 03-29-2020 Influenza vaccination given [facility] Start: 02-24-2020 End: 02-24-2020 Office Visit 02/24/2020 Office Visit Endocrinology Vielka Nicholas MD [address] [place] [address] [phone] [facility] Start: 02-19-2020 TSH Qn TSH [facility] Start: 03-29-2019 Influenza vaccination given INFLUENZA VACCINE (#1) [facility] Start: 01-31-2019 DTaP/Tdap/Td Vaccines (1 - Tdap) DTaP/Tdap/Td Vaccines (1 - Tdap) [facility] Start: 03-29-2018 Influenza vaccination SEQUENTIAL INFLUENZA VACCINE (Season Ended) [facility] Start: 03-29-2017 Influenza vaccination SEQUENTIAL INFLUENZA VACCINE (#1) [facility] Start: 02-13-2014 Screening mammography MAMMOGRAM [facility] Start: 2002 Fall risk assessment [facility] Start: 2002 Glaucoma screening GLAUCOMA/EYE EXAM AGE 65+ [facility] Start: 2002 Osteoporosis risk assessment done BONE DENSITY SCREENING [facility] Start: 2002 Pneumococcal polysaccharide vaccine (product) PNEUMONIA VACCINE (PCV13 PPSV23) (1 of 2 - PCV13) [facility] Start: 2002 Pneumococcal vaccination PNEUMOCOCCAL VACCINE AGE 65+ (1 of 2 - PCV13) [facility] Start: 2002 Pneumococcal Vaccine: Age 65+ (1 of 1 - PPSV23) Pneumococcal Vaccine: Age 65+ (1 of 1 - PPSV23) [facility] Start: 1997 Hepatitis B Vaccines (1 of 3 - Risk 3-dose series) Hepatitis B Vaccines (1 of 3 - Risk 3-dose series) [facility] Start: 1997 Zoster vacc, sc [facility] Start: 1987 Administration of herpes zoster vaccine Zoster Vaccines (1 of 2) [facility] Start: 1987 SHINGLES 2 DOSE (1 of 2) SHINGLES 2 DOSE (1 of 2) [facility] Start: 1987 SHINGLES VACCINE (1 of 2) SHINGLES VACCINE (1 of 2) [facility] Start: 1987 Zoster vaccine hzv live for subcutaneous use ZOSTER (SHINGLES) VACCINE (1 of 2) [facility] Start: 1987 Zoster Vaccines (1 of 2) Zoster Vaccines (1 of 2) [facility] Start: 1956 Hepatitis A Vaccines (1 of 2 - Risk 2-dose series) Hepatitis A Vaccines (1 of 2 - Risk 2-dose series) [facility] Start: 1955 ANNUAL WELLNESS VISIT ANNUAL WELLNESS VISIT [facility] Start: 1955 WELLNESS ANNUAL VISIT WELLNESS ANNUAL VISIT [facility] Start: 1949 Adolescent depression screening assessment [facility] Start: 1949 Adult depression screening assessment [facility] Start: 1949 Depression screening using PHQ-9 (Patient Health Questionnaire 9) score [facility] Start: 1942 COVID-19 Vaccine (1) COVID-19 Vaccine (1) [facility] Start: 1940 History and physical examination, annual for health maintenance Wellness Visit [facility] Start: 1937 Fall risk assessment Falls Risk Assessment [facility] Start: 1937 Lipid panel Lipid Panel [facility] Start: 1937 Screening for osteoporosis [facility] Start: 1937 Tetanus vaccination [facility] 12 lead ECG EKG 12 lead ECG Routine 10/16/2022 5:47 PM EDT [facility] Work Phone: Anion gap measurement [facility] End: 03-20-2022 Bilirubin.indirect [Mass/volume] in Serum or Plasma [facility] Comment on above: One Time for 1 Occurrences starting 02/27 until 03/20/2022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
== END | disposition home or self-care (01) ==
LOC: PSN 10:28
PROVIDERS: PCP Nurse Practitioner Family; Referring Provider Psychiatry & Neurology Neurology; Visit Provider Psychiatry & Neurology Neurology
DX: R29.898 Other symptoms and signs involving the musculoskeletal system (principal); R20.0 Anesthesia of skin
CPT/HCPCS: 95886; 95909

== ENCOUNTER → 2025-05-04 | Outpatient (CLI) | payer MEDICARE, SELFPAY ==
[2025-05-09 22:06] LABS: VITAMIN B6 40.2 ug/L (3.4-65.2)
== END | disposition home or self-care (01) ==
LOC: MTLAB 12:23
PROVIDERS: PCP Nurse Practitioner Family; Referring Provider Psychiatry & Neurology Neurology; Visit Provider Psychiatry & Neurology Neurology
DX: G62.9 Polyneuropathy, unspecified (principal); R73.9 Hyperglycemia, unspecified
CPT/HCPCS: 36415; 83036; 84207

== ENCOUNTER 2025-06-20 13:48 | Emergency (ER) | payer MEDICARE, SELFPAY ==
[2025-06-20 13:49] VITALS: BP 129/68; PULSE 75; RESP 18; TEMP 35.6; O2SAT 94; BMI 27.7
--- NOTE | 2025-06-20 14:06 | EKG12_ITS ---
Test Reason : cp Blood Pressure : */* mmHG Vent. Rate : 75 BPM Atrial Rate : 75 BPM P-R Int : 154 ms QRS Dur : 84 ms QT Int : 382 ms P-R-T Axes : 55 51 53 degrees QTcB Int : 426 ms Normal sinus rhythm Normal ECG Confirmed by SANTIAGO ANDERSON, JULIA ([id number]), content editor BECKA MCCRARY ([id number]) on 06/21/2025 1:07:53 PM Referred By: Ak/guille Confirmed By: JULIA HENDERSON MD
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
[2025-06-20 14:15] LABS: Hematocrit 44.0 % (37-47); Hemoglobin 14.0 g/dL (12.0-15.0); Immature Granulocytes Count 0.030 X10^3/uL (0.0-0.0); Mean Corp Hgb Conc 31.8 g/dL (32-36); Mean Corpuscular Volume 88.4 fL (81-99); Mean Platelet Vol. 9.7 fl (6.2-12.0); NRBC Flagged by Analyzer 0 % (0-5); Platelet Count 203 K/mm3 (150-450); RBC Distribution Width CV 13.6 % (11.6-14.6); RBC Distribution Width SD 43.7 fl (35.1-43.9); Red Blood Count 4.98 M/mm3 (4.2-5.4); White Blood Count 9.0 K/mm3 (4.4-11.0)
--- OUTSIDE RECORDS SUMMARY | 2025-06-20 14:23 | XMS RPT_ITS | CCD ---
Author Organization [facility] Care Team Providers Care Help Desk Assistant Name Role Phone Tosha Xavier Unavailable KARINA, DARNELL Unavailable Unavailable KARINA DARNELL Unavailable Unavailable TOSHA XAVIER Unavailable Unavailable TOSHA XAVIER Unavailable Unavailable REHAN HAIRSTON Unavailable UnavailREHAN Mireles Unavailable UnavailTOSHA Morfin Unavailable Unavailable Efren Atwood Unavailable Vielka Nicholas Unavailable Tosha Xavier Primary Care Provider Tosha Xavier Primary Care Provider Tosha Xavier Primary Care Provider Efren Atwood MD Unavailable [phone] Vielka Nicholas MD Unavailable Tosha Xavier CNP Primary Care Provider Tosha Xavier CNP Primary Care Provider Efren Atwood MD Unavailable Vielka Nicholas MD Unavailable Bret Kirby MD Unavailable Dr. All Cast Attending Provider [facility] Doctor, Out of Primary Care Provider Naeem back [facility] Doctor, Out of Referring Provider Unavailab chidi Xavier DEPUTY SHERIFF CUSTODY, DEPUTY SHERIFF CUSTODY-C Tosha Primary Care Provider Dr. All Cast Other Provider Dr. Rachael Reed Attending Provider Dr. All Cast Admit Provider Dr. Linwood Rg Attending Provider Dr. All Cast Referring Provider Purkey DEPUTY SHERIFF CUSTODY, DEPUTY SHERIFF CUSTODY-C Tosha Referring Provider Dr. Isac Interiano Attending Provider Dr. Olinda Kramer Emergency Provider Dr. Joan Davison Admit Provider Dr. Joan Davison Other Provider Mihai THAKUR, DEPUTY SHERIFF CUSTODY-C Diana Attending Provider Dr. Linwood Rg Other Provider Jose, Dr. Shipman Attending Provider Dr. Judie Mishra Other Provider Dr. Judie Mishra Attending Provider Dr. All Cast Attending Provider Dr. Joan Davison Attending Provider Dr. Judie Mishra Referring Provider PALOMA Denton Attending Provider PALOMA Denton Referring Provider PALOMA Denton Other Provider Efren Atwood MD Unavailable Cristopher ANDERSON, Vielka Unavailable Bret Kirby MD Unavailable Morenita SHELL SORTER, Tosha M Primary Care Provider Purkey DEPUTY SHERIFF CUSTODY, DEPUTY SHERIFF CUSTODY-C Tosha Primary Care Provider Purkey DEPUTY SHERIFF CUSTODY, DEPUTY SHERIFF CUSTODY-C Otsha Referring Provider Dr. All Cast Attending Provider Dr. All Cast Referring Provider Dr. All Cast Other Provider Roof DEPUTY SHERIFF CUSTODY, DEPUTY SHERIFF CUSTODY-C Lyudmila H Attending Provider Purkey DEPUTY SHERIFF CUSTODY, DEPUTY SHERIFF CUSTODY-C Tosha Primary Care Provider Purkey DEPUTY SHERIFF CUSTODY, DEPUTY SHERIFF CUSTODY-C Tosha Referring Provider Fior DOW PA Bea Nunez Attending Provider MD Fred Norton Emergency Provider Dr. Joan Davison Attending Provider Dr. Joan Davison Admit Provider Dr. Joan Davison Other Provider Dr. Jennifer Bernard Attending Provider Dr. Jennifer Bernard Other Provider Jose, Dr. Shipman Attending Provider Dr. Eloisa Delgado Attending Provider Dr. Eloisa Delgado Other Provider Purkey DEPUTY SHERIFF CUSTODY, DEPUTY SHERIFF CUSTODY-C Tosha Primary Care Provider PALOMA Denton Referring Provider PALOMA Denton Other Provider Dr. All Cast Attending Provider Dr. All Cast Referring Provider Dr. All Cast Other Provider Roof DEPUTY SHERIFF CUSTODY, DEPUTY SHERIFF CUSTODY-C Lyudmila H Attending Provider Purkey DEPUTY SHERIFF CUSTODY, DEPUTY SHERIFF CUSTODY-C Tosha Referring Provider PALOMA Denton Attending Provider [...] Primary Care Provider Kofi ANDERSON, Bret Unavailable [phone] TOSHA XAVIER Consulting Unavailable QUANG SALAS Attending Unavailable QUANG SALAS Primary Care Unavailable QUANG SALAS Admitting Unavailable PROVIDER, UNKNOWN Consulting Unavailable Morenita DEPUTY SHERIFF CUSTODY, DEPUTY SHERIFF CUSTODY-C Tosha Primary Care Provider Morenita DEPUTY SHERIFF CUSTODY, DEPUTY SHERIFF CUSTODY-C Tosha Referring Provider Johnny DEPUTY SHERIFF CUSTODY, DEPUTY SHERIFF CUSTODY-C Lyudmila Herrera Attending Provider Morenita DEPUTY SHERIFF CUSTODY, DEPUTY SHERIFF CUSTODY-C Tosha Primary Care Provider Morenita DEPUTY SHERIFF CUSTODY, DEPUTY SHERIFF CUSTODY-C Tosha Referring Provider Tyrone DEPUTY SHERIFF CUSTODY, DEPUTY SHERIFF CUSTODY-C Pat Attending Provider Morenita DEPUTY SHERIFF CUSTODY, DEPUTY SHERIFF CUSTODY-C Tosha Primary Care Provider Morenita DEPUTY SHERIFF CUSTODY, DEPUTY SHERIFF CUSTODY-C Tosha Referring Provider Tyrone DEPUTY SHERIFF CUSTODY, DEPUTY SHERIFF CUSTODY-C Pat Attending Provider Morenita AVIATION PROJECT MANAGER - JANELL, Tosha Primary Care Provider Carolyn MIX, Michele Unavailable Unavailable Carolyn MIX, Michele Unavailable Unavailable MAURA MERCADO Primary Care Unavailable DIANA MORALES APRN Consulting Unavailabl e MORALES AVIATION PROJECT MANAGER~[id number], JOVANI Nunez Attending Unavailable MORALES AVIATION PROJECT MANAGER~[id number], JOVANI Nunez Admitting Unavailable MORALES AVIATION PROJECT MANAGER, DIANA Nunez Consulting Unavailabl e JESS, MAURA Consulting Unavailable JESS, MAURA Consulting Unavailable MORALES AVIATION PROJECT MANAGER~[id number], JOVANI Nunez Attending Unavailable MORALES AVIATION PROJECT MANAGER~[id number], JOVANI Nunez Admitting Unavailable JESS, MAURA Primary Care Unavailable MORALES AVIATION PROJECT MANAGER, DIANA M Consulting Unavailabl e MORALES AVIATION PROJECT MANAGER, DIANA M Consulting Unavailabl e JESS, MAURA Consulting Unavailable JESS, MAURA Consulting Unavailable JESS, MAURA Consulting Unavailable JESS, MAURA Primary Care Unavailable MORALES AVIATION PROJECT MANAGER~[id number], JOVANI Nunez Attending Unavailable MORALES AVIATION PROJECT MANAGER~[id number], JOVANI ROMEOSSTANIA Nunez Admitting Unavailable JESS, MAURA Consulting Unavailable Pat THAKUR, Alysia L Attending Unavailable TIFFANI OSBORN MD Admitting Unavailable TIFFANI OSBORN MD Attending Unavailable TIFFANI OSBORN MD Primary Care Unavailable DENIS CABALLERO JR Admitting Unavailable DEINS CABALLERO JR Attending Unavailable DENIS CABALLERO JR Primary Care Unavailable PURKEY, TOSHA CORRECTIONAL CASE RECORDS SUPERVISOR Consulting Unavailable PURKEY, TOSHA JOSE Referring Unavailable PROVIDER, UNKNOWN Consulting Unavailable PURKEY, TOSHA CORRECTIONAL CASE RECORDS SUPERVISOR Admitting Unavailable PURKEY, TOSHA CORRECTIONAL CASE RECORDS SUPERVISOR Attending Unavailable PURKEY, TOSHA CORRECTIONAL CASE RECORDS SUPERVISOR Primary Care Unavailable PURKEY, TOSHA CORRECTIONAL CASE RECORDS SUPERVISOR Consulting Unavailable PROVIDER, UNKNOWN Consulting Unavailable JESS DEPUTY SHERIFF CUSTODY, MAURA Primary Care Provider Dr. Souleymane Keys MD Emergency Provider Unavailable Primary Care Provider UnavailPLOLO Huang Attending Unavailable MELITA, LOS Admitting Unavailable MELITA, LOS Attending Unavailable MORENITA TOSHA Primary Care Unavailable Dr. Souleymane Keys MD Attending Provider Jess DEPUTY SHERIFF CUSTODY-C, Maura Primary Care Provider Jess DEPUTY SHERIFF CUSTODY-C, Maura Referring Provider [phone] Segun ANDERSON, Dr. Carrizales Attending Provider [place] DEPUTY SHERIFF CUSTODY-C, Maura Attending Provider Purkey DEPUTY SHERIFF CUSTODY-C, Tosha Referring Provider Sarah ANDERSON, Dr. Galdamez Attending Provider [phone] Dr. Rudolph Smith MD Referring Provider [phone] LYUDMILA LAWRENCE Referring Unavailable HOWARD, LYUDMILA Attending Unavailable Dr. Rudolph Smith MD Attending Physician Jess DEPUTY SHERIFF CUSTODY-C, Maura Primary Care Physician [phone] Dr. Rudolph Smith MD Nurse Practitioner Renaldo ANDERSON, Dr. Hannon Attending Physician [place] DEPUTY SHERIFF CUSTODY-C, Maura Referring Provider [place], Maura Referring Unavailable [place], Maura Primary Care Unavailable Baddour, Rudolph Attending Unavailable Keys, Souleymane Attending Unavailable GILBERT, N1 Primary Care Unavailable Jess, Maura Primary Care Unavailable Baddour, Rudolph Referring Unavailable Baddour, Rudolph Attending Unavailable Jess, Maura Primary Care Unavailable Baddour, Rudolph Referring Unavailable Baddour, Rudolph Attending Unavailable Jess, Maura Primary Care Unavailable Baddour, Rudolph Referring Unavailable Baddour, Rudolph Attending Unavailable Jess, Maura Primary Care Unavailable Baddour, Rudolph Referring Unavailable Baddour, Rudolph Attending Unavailable [place], Maura Primary Care Unavailable [place], Maura Attending Unavailable Jess, Maura Referring Unavailable Jess, Maura Primary Care Unavailable Purkey, Tosha Referring Unavailable Baddour, Rudolph Attending Unavailable [place], Maura Primary Care Unavailable Ahmad, Arsal Attending Unavailable Baddour, Rudolph Referring Unavailable Baddour, Rudolph Consulting Unavailable Jess, Maura Primary Care Unavailable Ahmad, Arsal Attending Unavailable Baddour, Rudolph Referring Unavailable Baddour, Rudolph Consulting Unavailable Purkey, Tosha Referring Unavailable Segun, Quitman Attending Unavailable GILBERT, N1 Primary Care Unavailable Jess, Maura Primary Care Unavailable Segun, Quitman Attending Unavailable Jess, Maura Referring Unavailable Allergies Allergy Classification Reported Allergen(s) Allergy Type Date of Onset Reaction(s) Facility Opioid Agonists (2 sources) Codeine Drug Allergy 1 Nausea And Vomiting [facility] Penicillins (antibiotic) (2 sources) Penicillins Drug Allergy 1 [facility] Unclassified (2 sources) Bee Propensity to adverse reactions to drug 1 [facility] (20 sources) codeine; 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: [CODEINE] Propensity to adverse reactions to drug 1 GI Intolerance, Nausea And Vomiting, Hives, Swelling [facility] (20 sources) Penicillins; 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: [PENICILLINS] Propensity to adverse reactions to drug 1 [facility] (11 sources) Bee Propensity to adverse reactions to drug 1 [facility] (6 sources) Penicillins Propensity to adverse reactions to drug 1 [facility] (1 source) Penicillins Propensity to adverse reactions to drug 1 [facility] (2 sources) Codeine Drug Allergy [facility] (2 sources) Penicillin Drug Allergy [facility] (2 sources) Penicillins Drug allergy (disorder) [facility] (8 sources) Isosorbide Drug Allergy 4 Dizzy, nausea, headache [facility] (4 sources) bee venom Allergy to substance 4 Swelling [facility] (4 sources) Isosorbide Drug Allergy 4 [facility] (4 sources) Penicillins Drug Intolerance 1 Hives, Rash [facility] (1 source) Codeine Drug Allergy 5 [facility] (1 source) Isosorbide Drug Allergy 5 [facility] (1 source) Penicillins Drug allergy (disorder) 5 [facility] Medications Current Medications Medication Drug Class(es) Dates Sig (Normalized) Sig (Original) apixaban 5 mg oral tablet (3 sources) Factor Xa Inhibitor apixaban (ELIQUIS) 5 mg Tab Take by mouth 2 (two) times a day. 0 Active ascorbic acid 1000 mg oral tablet (12 sources) Vitamin C Start: 05-05-2022 take 1 tablet by mouth at bedtime aspirin 81 mg delayed release oral tablet [...] 2022 9:51am cefdinir 300 mg oral capsule (20 sources) Cephalosporin Antibacterial Start: 11-18-2023 take 1 capsule by mouth twice daily cefdinir 300 mg capsule take1 capsule by mouth twice a day - Active Start: 10-05-2021 End: 10-06-2021 take 1 capsule by mouth twice daily Cefdinir 300 mg capsule Discontinued 300 mg PO TWICE A DAY October 05, 2021 1:00am October 06, 2021 11:43am clotrimazole 10 mg/ml topical cream (20 sources) Azole Antifungal Start: 08-13-2023 clotrimazole 1 [...] 2021 1:00am October 06, 2021 11:47am DULoxetine 60 mg delayed release oral capsule (8 sources) Serotonin and Norepinephrine Reuptake Inhibitor Start: 02-09-2025 End: 05-04-2025 take 1 capsule by mouth once daily Duloxetine 30 mg capsule,delayed release(DR/EC) Active 30 mg PO DAILY 7 0 May 04, 2025 11:16am Complies with drug therapy Start: 02-09-2025 End: 05-04-2025 take 1 capsule by mouth once daily Duloxetine 60 mg capsule,delayed release(DR/EC) Active 60 mg PO daily 30 May 04, 2025 11:16am Begin after completing one week course of duloxetine 30mg daily. Complies with drug therapy fluconazole 100 mg oral tablet (20 sources) Azole Antifungal Start: 08-13-2023 fluconazole 1 [...] Active meclizine hydrochloride 25 mg oral tablet (19 sources) Antiemetic Start: 2024 take 1 tablet by mouth three times daily as needed Start: 01-14-2024 take 1 tablet by cruz [...] take 1 tablet by mouth once daily Start: 10-23-2023 End: 12-24-2024 take 1 tablet [...] hr Discontinued 12.5 mg PO DAILY 45 3 January 20, 2024 8:24am October 15, 2024 2:29pm Start: 10-31-2021 End: 01-02-2023 take 12.5 mg by mouth once daily Metoprolol Succinate Active 12.5 MG PO DAILY 45 January 02, 2023 10:24am omeprazole 40 mg delayed release oral capsule (8 sources) Proton Pump Inhibitor Start: 04-13-2024 take 1 capsule by mouth once daily potassium chloride 10 meq extended release oral tablet (11 sources) Start: 12-18-2023 take 1 tablet by mouth once daily predniSONE 10 mg oral tablet (20 sources) Start: 08-13-2023 prednisone 10 mg tablet - Active Start: 05-13-2023 prednisone 5 m g tablet - Active Start: 10-05-2021 End: 10-06-2021 take 1 tablet by mouth twice daily Prednisone 10 mg tablet Discontinued 10 mg PO TWICE A DAY October 05, 2021 1:00am October 06, 2021 11:48am 12 hr ranolazine 500 mg extended release oral tablet (9 sources) Anti-anginal Start: 08-21-2023 ranolazine ER 500 mg tablet,extended release,12 hr - Active Start: 08-20-2023 End: 11-29-2023 take 1 tablet by mouth twice daily Ranolazine 500 mg tablet extended release 12 hr Discontinued 500 mg PO TWICE A DAY 180 August 20, 2023 1:00am November 29, 2023 11:06am Right AFO (1 source) Start: 05-04-2025 Right AFO Acti ve 0 .Route .MEDSUPPLY 1 0 May 04, 2025 12:00am Right foot drop Polyneuropathy Foot drop, right foot Polyneuropathy, unspecified R foot drop (M21.371); polyneuropathy (G62.9) As directed. Patient is in need of custom brace. tamsulosin hydrochloride 0.4 mg oral capsule (2 sources) alpha-Adrenerg ic Margaret Start: 10-28-2023 take 1 capsule by mouth twice daily tamsulosin 0.4 mg capsule take 1 capsule by mouth twice daily - Active timolol 0.005 mg/mg ophthalmic gel (10 sources) beta-Adrenergi c Margaret Start: 02-09-2025 Start: 10-15-2024 End: 02-09-2025 Timolol Maleate 0.5 [...] / HYDROcodone bitartrate 5 mg oral tablet (19 sources) Opioid Agonist Start: 10-05-2021 End: 10-06-2021 Hydrocodone-Acetami nophen 5-325 mg tablet Discontinued 1 {tbl} PO Q8H as needed 0 October 05, 2021 1:00am October 06, 2021 11:47am Start: 10-05-2021 End: 10-06-2021 take 1 tablet by mouth every eight hours Hydrocodone-Acetaminophen Discontinued 1 TABLET PO Q8H October 05, 2021 1:00am October 06, 2021 11:47am ALPRAZolam 0.25 mg oral tablet (19 sources) Benzodiazepine Start: 10-05-2021 End: 10-06-2021 take [...] mg tablet Discontinued 2.5 mg PO DAILY 30 September 09, 2023 1:00am November 29, 2023 11:06am [...] 1 tablet by cruz th once daily Start: 01-14-2024 take 1 tablet by cruz th once daily atorvastatin 20 mg tablet take 1 tablet by mouth daily - Active Start: 10-31-2021 End: 10-15-2024 take 1 tablet by mouth at bedtime Atorvastatin 10 mg tablet Discontinued 0 .ROUTE .COMPLEX 90 3 January 20, 2024 4:06pm October 15, 2024 [...] Oral, Every other day, First dose on Janna 11/19/24 at 0900 Start: 12-16-2023 End: 10-15-2024 take [...] THINNER dicyclomine hydrochloride 10 mg oral capsule (10 sources) Anticholinergic Start: 2023 End: 10-15-2024 take [...] / sennosides, snf 8.6 mg oral tablet (19 sources) Start: 10-05-2021 End: 09-09-2023 Sennosides-Docusate Sodium [...] 24 hours scheduled (Daily), First dose on Janna 11/19/24 at 0900, Indication of Use: Prophylaxis-DVT/PE, Indications: Prophylaxis of Venous Thromboembolism esomeprazole 40 mg delayed release oral capsule (20 sources) Proton Pump Inhibitor Start: 05-01-2023 End: 12-24-2024 take 1 capsule by mouth [...] 2023 12:07pm gabapentin 300 mg oral capsule (19 sources) Anti-epilept ic Agent Start: 10-05-2021 End: 10-06-2021 take 1 capsule by mouth three times daily as needed Gabapentin 300 mg capsule Discontinued 300 mg PO THREE TIMES A DAY as needed October 05, 2021 1:00am October 06, 2021 11:47am Honey (Honey 80 % Topical Gel) 80 % gel (5 sources) Start: 10-15-2024 End: 02-09-2025 Honey (Honey 80 % Topical Gel) 80 % gel Discontinued 1 NMA TOPICAL DAILY October 15, 2024 12:00am February 09, 2025 9:03am Start: 10-15-2024 Honey (Honey 8 0 % Topical Gel) 80 % gel Active 1 NMA TOPICAL DAILY October 15, 2024 12:00am hydroxychloroquine sulfate 200 mg oral tablet (19 sources) Antimalarial, Antirheumatic Agent Start: 10-05-2021 End: [...] IntraVENous, IMG once PRN, contrast, Starting on [facility] 11/19/24 at 1356, For 1 dose [...] 24 hr Discontinued 60 mg PO DAILY 90 3 August 13, 2023 1:00am August 16, 2023 [...] doses. losartan potassium 50 mg oral tablet (19 sources) Angiotensin 2 Receptor Margaret Start: 10-05-2021 End: 10-06-2021 take 1 tablet by mouth once daily Losartan 50 mg tablet Discontinued 50 mg PO DAILY October 05, 2021 1:00am October 06, 2021 11:48am mupirocin 0.02 mg/mg topical ointment (18 sources) RNA Synthetase Inhibitor Antibacterial Start: 10-15-2024 [...] release (DR/EC) Discontinued 40 mg PO DAILY 3 September 13, 2022 12:44pm September 14, 2022 3:45pm stomach take 40 mg by mouth once daily P ANTOPRAZOLE SODIUM PO Take 40 mg by mouth daily. 0 Active take 1 tablet by cruz once daily pantoprazole (PROTONIX) 40 MG tablet Take 40 mg by mouth daily. 0 Active Pnv,Calcium 45-Qxsd-Wbeho Ac id ( Vitamin Plus Low Iron) 27 mg iron- 1 mg tablet (13 sources) Start: 05-05-2022 End: 04-07-2023 Pnv,Calcium 39-Rybx-Whbec Ac id ( Vitamin Plus Low Iron) 27 mg iron- 1 mg tablet Discontinued 1 {tbl} PO DAILY May 05, 2022 12:00am April 07, 2023 11:01pm vitamin Start: 05-05-2022 End: 04-07-2023 Pnv,Calcium 93-Enmr-Cdeef Ac id ( Vitamin Plus Low Iron) 27 mg iron- 1 mg tablet Discontinued 1 {tbl} PO DAILY May 05, 2022 12:00am April 07, 2023 11:01pm Start: 05-05-2022 End: 04-07-2023 take 1 tablet by mouth once daily Pnv,Calcium 07-Fmpi-Qekgm Acid ( Vitamin Plus Low Iron) 27 mg iron- 1 mg tablet Discontinued 1 TABLET PO DAILY May 04, 2022 11:00pm April 07, 2023 10:01pm Start: 05-05-2022 End: 04-07-2023 take 1 tablet by mouth once daily Pnv,Calcium 63-Xrqa-Ayqcp Acid ( Vitamin Plus Low Iron) 27 mg iron- 1 mg tablet Discontinued 1 TABLET PO DAILY May 05, 2022 12:00am April 07, 2023 11:01pm Start: 05-05-2022 take 1 tablet by cruz th once daily Pnv,Calcium 30-Kimd-Ojzhc Acid ( Vitamin Plus Low Iron) 27 mg iron- 1 mg tablet Active 1 TABLET PO DAILY May 04, 2022 11:00pm Start: 05-05-2022 take 1 tablet by cruz th once daily Pnv,Calcium 22-Wquw-Dlxsw Acid ( Vitamin Plus Low Iron) 27 mg iron- 1 mg tablet Active 1 TABLET PO DAILY May 05, 2022 12:00am polyethylene glycol 3350 82108 mg powder for oral solution (2 sources) Osmotic Laxative Start: 11-18-2024 End: 11-19-2024 take 17 g by mouth every twenty-four hours as needed for constipation 17 g, Oral, Daily PRN, constipation, Starting on Sat11/18/24 at 1734, 1st line for treatment of constipation - give scheduled if no bowel movement in past 24 hours. sertraline 50 mg oral tablet (7 sources) Serotonin Reuptake Inhibitor Start: 10-15-2024 End: 02-09-2025 take 1 tablet by mouth once daily Sertraline 50 mg tablet Discontinued 50 mg PO DAILY October 15, 2024 12:00am February 09, 2025 9:04am depressive disorder Start: 05-06-2024 sertraline 50 mg tablet - Active sildenafil 20 mg oral tablet (19 sources) Phosphodiesterase 5 Inhibitor Start: 10-05-2021 End: [...] mg tablet Discontinued 12.5 mg PO DAILY 15 30 0 November 23, 2021 12:00am May 01, 2023 10:17am Start: 11-23-2021 End: 05-01-2023 take 12.5 mg by mouth once daily Spironolactone Discontinued 12.5 MG PO DAILY 15 November 23, 2021 12:00am May 01, 2023 10:17am Start: 08-30-2021 End: 11-23-2021 take 1 tablet by mouth once daily Spironolactone 25 mg tablet Discontinued 25 mg PO DAILY October 06, 2021 1:00am November 23, 2021 2:35pm terbinafine 250 mg oral tablet (19 sources) Allylamine Antifungal Start: 10-05-2021 End: 10-06-2021 [...] take 1 tablet by mouth once daily ticagrelor 90 mg oral tablet (19 sources) Start: 10-31-2021 End: 05-28-2022 take 1 tablet by mouth twice daily Ticagrelor (Brilinta) 90 mg Tablet Discontinued 90 mg PO TWICE A DAY 180 October 31, 2021 12:00am May 28, 2022 [...] 06, 2021 11:48am Vitamin B Complex tablet (5 sources) Start: 10-05-2021 End: 10-06-2021 Vitamin B Complex tablet Discontinued 1 {tbl} PO DAILY October 05, 2021 1:00am October 06, 2021 11:48am vitamin b12 1 mg/ml injectable solution (13 sources) Vitamin B12 Start: 05-05-2022 End: 04-08-2023 Cyanocobalamin (Vitamin B-12) 1,000 mcg/mL solution Discontinued 1000 ug SC EVERY WEEK May 05, 2022 12:00am April 08, 2023 5:45pm Start: 05-05-2022 End: 04-08-2023 Cyanocobalamin (Vitamin B-12 ) Discontinued 1000 MCG SC EVERY WEEK May 05, 2022 12:00am April 08, 2023 5:45pm Problems Active Problems Problem Classification Problem Date Documented Da te Episodic/Chronic Acquired foot deformities (7 sources) Right foot drop; 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: [Foot drop, right foot] Onset: 5 11-19-2024 Episodic Cardiac dysrhythmias (20 sources) Palpitations; 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: [Intermittent palpitations] Onset: 8 [...] hemorrhage] Onset: 6 10-31-2015 E Codes: Fall (5 sources) Falling injury; 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: [Unspecified fall, initial [...] Open wounds of head; neck; and trunk (5 sources) Laceration of forehead; 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: [Laceration without foreign body of other part of head, initial encounter] 10-15-2024 Episodic Other aftercare (13 sources) Long-term current use of anticoagulant; 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: [[facility] (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] 09-05-2022 Episodic Other aftercare (3 sources) [facility] (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; 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: [Long-term (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] Episodic Other circulatory disease (11 sources) Abnormal peripheral pulse; 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: [Other specified symptoms and signs involving the circulatory and respiratory systems] 09-05-2022 Episodic Other circulatory disease (1 source) Other specified symptoms and signs involving the circulatory and respiratory systems; 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: [Other symptoms involving cardiovascular system] Episodic Other connective tissue disease (1 source) Hand pain; 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: [Pain in right hand] Episodic Other connective tissue disease (19 sources) Retained foreign body; 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: [Residual foreign body in soft tissue] 10-05-2021 Episodic Comment on above: chest Other connective tissue disease (4 sources) Residual foreign body in soft tissue; 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: [Residual foreign body in soft tissue] Episodic Other connective tissue disease (4 sources) Pain in left hand Episodic Other connective tissue disease (2 sources) Other symptoms and signs involving the musculoskeletal system; 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: [Other symptoms and signs involving the musculoskeletal system] Onset: 5 Episodic Other gastrointestinal disorders (13 sources) History of gastrointestinal bleed; 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: [Personal history of other diseases of the digestive system] 05-16-2022 Episodic Other gastrointestinal disorders (3 sources) Personal history of other diseases of the digestive system; 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: [Personal history of other diseases of digestive system] Episodic Other liver diseases (13 sources) Steatosis of liver; 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: [Fatty (change of) liver, not elsewhere classified] 09-05-2022 Chronic Other lower respiratory disease (2 sources) Dyspnea; 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: [Shortness of breath] Episodic Other lower respiratory disease (6 sources) Dyspnea on exertion; 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: [Other forms of dyspnea] 11-29-2023 Episodic Other lower respiratory disease (1 source) Other forms of dyspnea; 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: [Other respiratory abnormalities] 11-29-2023 Episodic Other nervous system disorders (4 sources) Carpal tunnel syndrome, left upper limb; 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: [Left carpal tunnel syndrome] Chronic Other nervous system disorders (1 source) Neuropathy; 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: [Polyneuropathy, unspecified] 02-09-2025 Chronic Other nervous system disorders (7 sources) Carpal tunnel syndrome of left wrist; 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: [Carpal tunnel syndrome, left upper limb] 02-09-2025 Chronic Other nervous system disorders (7 sources) Right leg peripheral neuropathy; 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: [Unspecified mononeuropathy of right lower limb] 02-09-2025 Chronic Other nervous system disorders (7 sources) Polyneuropathy; 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: [Polyneuropathy, unspecified] 02-09-2025 Chronic Other nervous system disorders (2 sources) Polyneuropathy,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 Gender: F Pt. Type: Out Account: [id number] Location: 010 Ordering: YASSER JOSE DE JESUS Exam Date: 08/10/2024/10:55 Family Phys: Charge Code: [id number] Physician: Murray Order #: [id number] Dose#: PROCEDURE: RUQ (GB) ULTRASOUND COMPARISON: None. [...] KINNEY MD ON 08/10/2024 AT 11:38 Normal [facility] BMP with eGFRon 08-09-2024 AGE 88 years Normal [facility] Comment on above: Performed By: #### 2 35960 #### [facility],[address] [place] [address] 48791 Anion gap [Moles/Vol] 9 mmol/L Low 10 - 20 [facility] Comment on above: Performed By: #### 2 32036 #### [facility],[address] [place] [address] 60796 BMP with eGFR Normal [facility] Comment on above: Result Comment: BASI C METABOLIC PANEL Performed By: #### 2 08751 #### [facility],[address] [place] [address] 15841 Calcium [Mass/Vol] 8.0 mg/dL Low 8.5 - 10.1 [facility] Comment on above: Performed By: #### 2 24350 #### [facility],[address] [place] [address] 71963 Chloride [Moles/Vol] 101 mmol/L Normal 98 - 107 [facility] Comment on above: Performed By: #### 2 01169 #### [facility],[address] [place] [address] 69900 CO2 [Moles/Vol] 26.6 mmol/L Normal 21.0 - 32.0 [facility] Comment on above: Performed By: #### 2 35128 #### [facility],[address] [place], [place] [address] Creatinine [Mass/Vol] 0.64 mg/dL Normal 0.55 - 1.02 [facility] Comment on above: Performed By: #### 2 72918 #### [facility],[address] [place], [place] [address] GFR/1.73 sq M.predicted among non-blacks MDRD (S/P/Bld) [Vol rate/Area] mL/min/{1.73_m2} Normal 60 - 999 [facility] Comment on above: Performed By: #### 2 82942 #### [facility],[address] [place] [address] Result Comment: ACCO RDING TO THE NATIONAL KIDNEY DISEASE EDUCATION PROGRAM(NKDE), A NORMAL eGFR IS A VALUE GREATER THAN OR EQUAL TO 60 ML/MIN/1.73 SQ METERS. CHRONIC KIDNEY DISEASE: <60mL/MIN/1.73 SQ METERS KIDNEY FAILURE: <15mL/MIN/1.73 SQ METERS THIS TEST SHOULD ONLY BE USED FOR PATIENTS 18 YEARS OF AGE AND OLDER. Glucose [Mass/Vol] 109 mg/dL High 74 - 106 [facility] Comment on above: Performed By: #### 2 75773 #### [facility],[address] [place] [address] 21995 Potassium [Moles/Vol] 4.1 mmol/L Normal 3.5 - 5.1 [facility] Comment on above: Performed By: #### 2 91847 #### [facility],[address] [place] [address] 48650 Sodium [Moles/Vol] 132 mmol/L Low 136 - 145 [facility] Comment on above: Performed By: #### 2 21372 #### [facility],[address] [place], [place] [address] Urea nitrogen [Mass/Vol] 6 mg/dL Low 7 - 18 [facility] Comment on above: Performed By: #### 2 40649 #### [facility],[address] [place] [address] CBC + DIFFon 08-09-2024 Baso # 0.01 x10EE3/UL Normal 0.00 - 0.10 [facility] Comment on above: Performed By: #### 2 19788 #### [facility],[address] [place] [address] Basophils/100 WBC (Bld) 0.2 % Normal 0.0 - 2.0 [facility] Comment on above: Performed By: #### 2 14816 #### [facility],[address] [place] [address] CBC + DIFF Normal [facility] Comment on above: Result Comment: CBC- COMPLETE BLOOD COUNT Performed By: #### 2 70512 #### [facility],[address] [place] [address] EO # 0.21 x10EE3/UL Normal 0.00 - 0.50 [facility] Comment on above: Performed By: #### 2 44083 #### [facility],[address] [place] [address] Eosinophils/100 WBC (Bld) 5.7 % Normal 0.0 - 7.0 [facility] Comment on above: Performed By: #### 2 22260 #### [facility],[address] [place] [address] Erythrocyte distribution width (RBC) [Ratio] 13.9 % Normal 12.0 - 15.6 [facility] Comment on above: Performed By: #### 2 24161 #### [facility],[address] [place] [address] Hematocrit (Bld) [Volume fraction] 38.6 % Normal 34.0 - 46.0 [facility] Comment on above: Performed By: #### 2 16484 #### [facility],[address] [place] [address] Hemoglobin (Bld) [Mass/Vol] 12.9 g/dL Normal 12.0 - 16.0 [facility] Comment on above: Performed By: #### 2 33562 #### [facility],[address] [place] [address] Lymph # 1.50 x10EE3/UL Normal 0.80 - 2.80 [facility] Comment on above: Performed By: #### 2 85533 #### [facility],[address] [place] [address] Lymphocytes/100 WBC (Bld) 41.0 % Normal 20.0 - 45.0 [facility] Comment on above: Performed By: #### 2 29488 #### [facility],[address] [place] [address] MANUAL DIFF N/A Normal [facility] Comment on above: Performed By: #### 2 47312 #### [facility],[address] [place] [address] MCH (RBC) [Entitic mass] 28 pg Normal 27 - 33 [facility] Comment on above: Performed By: #### 2 42013 #### [facility],[address] [place] [address] MCHC 33 X10 3 Normal 32 - 36 [facility] Comment on above: Performed By: #### 2 33569 #### [facility],[address] [place], [place] [address] MCV (RBC) [Entitic vol] 84 fL Normal 80 - 99 [facility] Comment on above: Performed By: #### 2 77197 #### [facility],[address] [place] [address] [place] # 0.37 x10EE3/UL Normal 0.20 - 1.00 [facility] Comment on above: Performed By: #### 2 66456 #### [facility],[address] [place] [address] 32772 MONOS % 10.1 % High 0.0 - 10.0 [facility] Comment on above: Performed By: #### 2 70915 #### [facility],[address] [place] [address] 47702 Morphology Michael (Bld) [Interp] N/A Normal [facility] Comment on above: Performed By: #### 2 03181 #### [facility],[address] [place] [address] 44381 Neut # 1.58 x10EE3/UL Normal 1.50 - 7.10 [facility] Comment on above: Performed By: #### 2 46076 #### [facility],[address] [place] [address] 35006 Neutrophils/100 WBC (Bld) 43.0 % Low 46.0 - 76.0 [facility] Comment on above: Performed By: #### 2 35237 #### [facility],[address] [place] [address] 51821 PLATELET 156 x10EE3/UL Normal 150 - 450 [facility] Comment on above: Performed By: #### 2 85130 #### [facility],[address] [place] [address] 85772 Platelet mean volume (Bld) [Entitic vol] 8.2 fL Normal 6.6 - 10.5 [facility] Comment on above: Result Comment: AUTO MATED DIFFERENTIAL Performed By: #### 2 59184 #### [facility],[address] [place] [address] 68875 RBC 4.58 x 10EE6/UL Normal 4.10 - 5.30 [facility] Comment on above: Performed By: #### 2 25958 #### [facility],[address] [place] [address] 20900 WBC 3.7 x 10EE3/UL Low 4.5 - 10.8 [facility] Comment on above: Performed By: #### 2 11098 #### [facility],[address] [place] [address] 65253 LIPID PROFILEon 08-09-2024 Cholesterol [Mass/Vol] 106 mg/dL Normal 0 - 240 [facility] Comment on above: Performed By: #### 2 93886 #### [facility],[address] [place] [address] 00755 Cholesterol in HDL [Mass/Vol] 56 mg/dL Normal 40 - 60 [facility] Comment on above: Performed By: #### 2 80020 #### [facility],[address] [place] [address] 30043 Cholesterol in LDL [Mass/Vol] 34 mg/dL Normal 0 - 129 [facility] Comment on above: Performed By: #### 2 60528 #### [facility],[address] [place] [address] 32571 Cholesterol.total/Chol esterol in HDL [Mass ratio] 1.9 {ratio} Normal 0.0 - 5.0 [facility] Comment on above: Performed By: #### 2 06513 #### [facility],[address] [place] [address] 15791 Lipid 1996 panel Normal [facility] Comment on above: Result Comment: LIPI D PROFILE Performed By: #### 2 02687 #### [facility],[address] [place] [address] 05642 Triglyceride [Mass/Vol] 78 mg/dL Normal 0 - 150 [facility] Comment on above: Performed By: #### 2 62344 #### [facility],[address] [place] [address] 59044 TROPONIN I, HIGH SENSITIVITY on 08-09-2024 HS TROPONIN 6.9 pg/mL Normal 0.0 - 51.4 [facility] Comment on above: Performed By: #### 2 39333 #### [facility],[address] [place] [address] 45294 CBC + DIFFon 08-08-2024 Baso # 0.01 x10EE3/UL Normal 0.00 - 0.10 [facility] Comment on above: Performed By: #### 2 39455 #### [facility],[address] [place], [place] [address] Basophils/100 WBC (Bld) 0.3 % Normal 0.0 - 2.0 [facility] Comment on above: Performed By: #### 2 72807 #### [facility],[address] [place] [address] CBC + DIFF Normal [facility] Comment on above: Result Comment: CBC- COMPLETE BLOOD COUNT Performed By: #### 2 41107 #### [facility],[address] [place] [address] EO # 0.13 x10EE3/UL Normal 0.00 - 0.50 [facility] Comment on above: Performed By: #### 2 68727 #### [facility],[address] [place] [address] Eosinophils/100 WBC (Bld) 3.5 % Normal 0.0 - 7.0 [facility] Comment on above: Performed By: #### 2 90854 #### [facility],[address] [place] [address] Erythrocyte distribution width (RBC) [Ratio] 13.9 % Normal 12.0 - 15.6 [facility] Comment on above: Performed By: #### 2 78377 #### [facility],[address] [place] [address] Hematocrit (Bld) [Volume fraction] 39.1 % Normal 34.0 - 46.0 [facility] Comment on above: Performed By: #### 2 64505 #### [facility],[address] [place], [place] [address] Hemoglobin (Bld) [Mass/Vol] 13.1 g/dL Normal 12.0 - 16.0 [facility] Comment on above: Performed By: #### 2 45319 #### [facility],[address] [place] [address] Lymph # 1.14 x10EE3/UL Normal 0.80 - 2.80 [facility] Comment on above: Performed By: #### 2 69367 #### [facility],[address] [place] [address] Lymphocytes/100 WBC (Bld) 30.4 % Normal 20.0 - 45.0 [facility] Comment on above: Performed By: #### 2 54039 #### [facility],[address] [place] [address] MANUAL DIFF N/A Normal [facility] Comment on above: Performed By: #### 2 14545 #### [facility],[address] [place] [address] MCH (RBC) [Entitic mass] 29 pg Normal 27 - 33 [facility] Comment on above: Performed By: #### 2 81747 #### [facility],[address] [place] [address] MCHC 34 X10 3 Normal 32 - 36 [facility] Comment on above: Performed By: #### 2 17242 #### [facility],[address] [place], [place] [address] MCV (RBC) [Entitic vol] 86 fL Normal 80 - 99 [facility] Comment on above: Performed By: #### 2 45069 #### [facility],[address] [place], [place] [address] [place] # 0.49 x10EE3/UL Normal 0.20 - 1.00 [facility] Comment on above: Performed By: #### 2 84263 #### [facility],[address] [place], [place] [address] MONOS % 13.0 % High 0.0 - 10.0 [facility] Comment on above: Performed By: #### 2 53611 #### [facility],[address] [place] [address] Morphology Michael (Bld) [Interp] N/A Normal [facility] Comment on above: Performed By: #### 2 01070 #### [facility],[address] [place], [place] [address] Neut # 1.98 x10EE3/UL Normal 1.50 - 7.10 [facility] Comment on above: Performed By: #### 2 50791 #### [facility],[address] [place] [address] Neutrophils/100 WBC (Bld) 52.7 % Normal 46.0 - 76.0 [facility] Comment on above: Performed By: #### 2 86686 #### [facility],[address] [place] [address] PLATELET 139 x10EE3/UL Low 150 - 450 [facility] Comment on above: Performed By: #### 2 46312 #### [facility],[address] [place] [address] Platelet mean volume (Bld) [Entitic vol] 8.1 fL Normal 6.6 - 10.5 [facility] Comment on above: Result Comment: AUTO MATED DIFFERENTIAL Performed By: #### 2 46712 #### [facility],[address] [place], [place] [address] RBC 4.57 x 10EE6/UL Normal 4.10 - 5.30 [facility] Comment on above: Performed By: #### 2 90250 #### [facility],[address] [place], [place] [address] WBC 3.8 x 10EE3/UL Low 4.5 - 10.8 [facility] Comment on above: Performed By: #### 2 24638 #### [facility],[address] [place], [place] [address] CMP with eGFRon 08-08-2024 AGE 88 years Normal [facility] Comment on above: Performed By: #### 2 60370 #### [facility],[address] [place] [address] 72876 Albumin [Mass/Vol] 2.9 g/dL Low 3.4 - 5.0 [facility] Comment on above: Performed By: #### 2 80015 #### [facility],[address] [place] [address] 75486 Albumin/Globulin [Mass ratio] 1.0 {ratio} Normal 0.9 - 1.6 [facility] Comment on above: Performed By: #### 2 47137 #### [facility],[address] [place] [address] 29727 ALK PHOS 348 U/L High 46 - 116 [facility] Comment on above: Performed By: #### 2 99786 #### [facility],[address] [place] [address] 06499 ALT [Catalytic activity/Vol] 137 U/L High 16 - 63 [facility] Comment on above: Performed By: #### 2 32918 #### [facility],[address] [place] [address] 63917 Anion gap [Moles/Vol] 11 mmol/L Normal 10 - 20 [facility] Comment on above: Performed By: #### 2 82159 #### [facility],[address] [place] [address] 69169 AST [Catalytic activity/Vol] 118 U/L High 13 - 39 [facility] Comment on above: Performed By: #### 2 72073 #### [facility],[address] [place] [address] 47051 B/C RATIO 12 ratio Normal 0 - 30 [facility] Comment on above: Performed By: #### 2 84515 #### [facility],[address] [place] [address] 34206 Bilirubin [Mass/Vol] 0.5 mg/dL Normal 0.2 - 1.0 [facility] Comment on above: Performed By: #### 2 96015 #### [facility],[address] [place] [address] 01666 Calcium [Mass/Vol] 8.1 mg/dL Low 8.5 - 10.1 [facility] Comment on above: Performed By: #### 2 70554 #### [facility],[address] [place] [address] 53896 Chloride [Moles/Vol] 102 mmol/L Normal 98 - 107 [facility] Comment on above: Performed By: #### 2 11006 #### [facility],[address] [place] [address] 61558 CMP with eGFR Normal [facility] Comment on above: Result Comment: COMP REHENSIVE METABOLIC PANEL Performed By: #### 2 77729 #### [facility],[address] [place] [address] 90097 CO2 [Moles/Vol] 25.7 mmol/L Normal 21.0 - 32.0 [facility] Comment on above: Performed By: #### 2 86186 #### [facility],[address] [place] [address] 67592 Creatinine [Mass/Vol] 0.65 mg/dL Normal 0.55 - 1.02 [facility] Comment on above: Performed By: #### 2 20961 #### [facility],[address] [place] [address] 50771 GFR/1.73 sq M.predicted among non-blacks MDRD (S/P/Bld) [Vol rate/Area] mL/min/{1.73_m2} Normal 60 - 999 [facility] Comment on above: Performed By: #### 2 32424 #### [facility],[address] [place] [address] 06808 Result Comment: ACCO RDING TO THE NATIONAL KIDNEY DISEASE EDUCATION PROGRAM(NKDE), A NORMAL eGFR IS A VALUE GREATER THAN OR EQUAL TO 60 ML/MIN/1.73 SQ METERS. CHRONIC KIDNEY DISEASE: <60mL/MIN/1.73 SQ METERS KIDNEY FAILURE: <15mL/MIN/1.73 SQ METERS THIS TEST SHOULD ONLY BE USED FOR PATIENTS 18 YEARS OF AGE AND OLDER. Globulin (S) [Mass/Vol] 2.9 g/dL Normal 1.5 - 3.8 [facility] Comment on above: Performed By: #### 2 19447 #### [facility],[address] [place] [address] 39171 Glucose [Mass/Vol] 109 mg/dL High 74 - 106 [facility] Comment on above: Performed By: #### 2 81132 #### [facility],[address] [place] [address] 75202 Potassium [Moles/Vol] 4.1 mmol/L Normal 3.5 - 5.1 [facility] Comment on above: Performed By: #### 2 65973 #### [facility],[address] [place] [address] 02040 Protein [Mass/Vol] 5.8 g/dL Low 6.4 - 8.2 [facility] Comment on above: Performed By: #### 2 35831 #### [facility],[address] [place] [address] 39972 Sodium [Moles/Vol] 135 mmol/L Low 136 - 145 [facility] Comment on above: Performed By: #### 2 81418 #### [facility],[address] [place] [address] 31435 Urea nitrogen [Mass/Vol] 8 mg/dL Normal 7 - 18 [facility] Comment on above: Performed By: #### 2 20773 #### [facility],[address] [place] [address] 49717 TROPONIN I, HIGH SENSITIVITY on 08-08-2024 HS TROPONIN 7.7 pg/mL Normal 0.0 - 51.4 [facility] Comment on above: Performed By: #### 2 71587 ####[facility],[address] [place] [address] 94279 HS TROPONIN 5.7 pg/mL Normal 0.0 - 51.4 [facility] Comment on above: Performed By: #### 2 84605 #### [facility],[address] [place] [address] CBC + DIFFon 08-07-2024 Baso # 0.00 x10EE3/UL Normal 0.00 - 0.10 [facility] Comment on above: Performed By: #### 2 60965 #### [facility],[address] [place] [address] Basophils/100 WBC (Bld) 0.1 % Normal 0.0 - 2.0 [facility] Comment on above: Performed By: #### 2 80855 #### [facility],[address] [place] [address] CBC + DIFF Normal [facility] Comment on above: Result Comment: CBC- COMPLETE BLOOD COUNT Performed By: #### 2 52200 #### [facility],[address] [place] [address] EO # 0.15 x10EE3/UL Normal 0.00 - 0.50 [facility] Comment on above: Performed By: #### 2 34793 #### [facility],[address] [place] [address] Eosinophils/100 WBC (Bld) 3.9 % Normal 0.0 - 7.0 [facility] Comment on above: Performed By: #### 2 75971 #### [facility],[address] [place] [address] Erythrocyte distribution width (RBC) [Ratio] 14.1 % Normal 12.0 - 15.6 [facility] Comment on above: Performed By: #### 2 31926 #### [facility],[address] [place] [address] Hematocrit (Bld) [Volume fraction] 41.0 % Normal 34.0 - 46.0 [facility] Comment on above: Performed By: #### 2 11208 #### [facility],[address] [place] [address] Hemoglobin (Bld) [Mass/Vol] 13.6 g/dL Normal 12.0 - 16.0 [facility] Comment on above: Performed By: #### 2 80650 #### [facility],[address] [place] [address] Lymph # 0.61 x10EE3/UL Low 0.80 - 2.80 [facility] Comment on above: Performed By: #### 2 10689 #### [facility],[address] [place] [address] Lymphocytes/100 WBC (Bld) 15.6 % Low 20.0 - 45.0 [facility] Comment on above: Performed By: #### 2 14095 #### [facility],[address] [place] [address] MANUAL DIFF N/A Normal [facility] Comment on above: Performed By: #### 2 04264 #### [facility],[address] [place], [place] [address] MCH (RBC) [Entitic mass] 28 pg Normal 27 - 33 [facility] Comment on above: Performed By: #### 2 63114 #### [facility],[address] [place] [address] 07236 MCHC 33 X10 3 Normal 32 - 36 [facility] Comment on above: Performed By: #### 2 43230 #### [facility],[address] [place] [address] 74453 MCV (RBC) [Entitic vol] 84 fL Normal 80 - 99 [facility] Comment on above: Performed By: #### 2 71872 #### [facility],[address] [place], [place] [address] [place] # 0.36 x10EE3/UL Normal 0.20 - 1.00 [facility] Comment on above: Performed By: #### 2 34193 #### [facility],[address] [place] [address] 69768 MONOS % 9.3 % Normal 0.0 - 10.0 [facility] Comment on above: Performed By: #### 2 75927 #### [facility],[address] [place] [address] 76926 Morphology Michael (Bld) [Interp] N/A Normal [facility] Comment on above: Performed By: #### 2 88078 #### [facility],[address] [place] [address] 57629 Neut # 2.78 x10EE3/UL Normal 1.50 - 7.10 [facility] Comment on above: Performed By: #### 2 71762 #### [facility],[address] [place] [address] 03753 Neutrophils/100 WBC (Bld) 71.1 % Normal 46.0 - 76.0 [facility] Comment on above: Performed By: #### 2 78413 #### [facility],[address] [place] [address] 63277 PLATELET 146 x10EE3/UL Low 150 - 450 [facility] Comment on above: Performed By: #### 2 46486 #### [facility],[address] [place] [address] 42231 Platelet mean volume (Bld) [Entitic vol] 8.0 fL Normal 6.6 - 10.5 [facility] Comment on above: Result Comment: AUTO MATED DIFFERENTIAL Performed By: #### 2 13596 #### [facility],[address] [place] [address] 22465 RBC 4.88 x 10EE6/UL Normal 4.10 - 5.30 [facility] Comment on above: Performed By: #### 2 69314 #### [facility],[address] [place] [address] 76969 WBC 3.9 x 10EE3/UL Low 4.5 - 10.8 [facility] Comment on above: Performed By: #### 2 32017 #### [facility],[address] [place] [address] 55153 CMP with eGFRon 08-07-2024 AGE 88 years Normal [facility] Comment on above: Performed By: #### 2 97323 #### [facility],[address] [place] [address] 31937 Albumin [Mass/Vol] 3.4 g/dL Normal 3.4 - 5.0 [facility] Comment on above: Performed By: #### 2 48932 #### [facility],[address] [place] [address] 32942 Albumin/Globulin [Mass ratio] 1.2 {ratio} Normal 0.9 - 1.6 [facility] Comment on above: Performed By: #### 2 19615 #### [facility],[address] [place] [address] 24893 ALK PHOS 287 U/L High 46 - 116 [facility] Comment on above: Performed By: #### 2 11395 #### [facility],[address] [place] [address] 13078 ALT [Catalytic activity/Vol] 97 U/L High 16 - 63 [facility] Comment on above: Performed By: #### 2 47158 #### [facility],[address] [place] [address] 47352 Anion gap [Moles/Vol] 13 mmol/L Normal 10 - 20 [facility] Comment on above: Performed By: #### 2 55951 #### [facility],[address] [place] [address] 68277 AST [Catalytic activity/Vol] 89 U/L High 13 - 39 [facility] Comment on above: Performed By: #### 2 56522 #### [facility],[address] [place] [address] 46194 B/C RATIO 8 ratio Normal 0 - 30 [facility] Comment on above: Performed By: #### 2 92153 #### [facility],[address] [place] [address] 71247 Bilirubin [Mass/Vol] 0.8 mg/dL Normal 0.2 - 1.0 [facility] Comment on above: Performed By: #### 2 24265 #### [facility],[address] [place] [address] 57932 Calcium [Mass/Vol] 8.5 mg/dL Normal 8.5 - 10.1 [facility] Comment on above: Performed By: #### 2 18506 #### [facility],[address] [place] [address] 04720 Chloride [Moles/Vol] 100 mmol/L Normal 98 - 107 [facility] Comment on above: Performed By: #### 2 74219 #### [facility],[address] [place] [address] 29366 CMP with eGFR Normal [facility] Comment on above: Result Comment: COMP REHENSIVE METABOLIC PANEL Performed By: #### 2 71561 #### [facility],[address] [place] [address] 77001 CO2 [Moles/Vol] 26.7 mmol/L Normal 21.0 - 32.0 [facility] Comment on above: Performed By: #### 2 62083 #### [facility],[address] [place] [address] 13639 Creatinine [Mass/Vol] 0.93 mg/dL Normal 0.55 - 1.02 [facility] Comment on above: Performed By: #### 2 75302 #### [facility],[address] [place] [address] 60149 eGFR 57 ML/MINUTE Low 60 - 999 [facility] Comment on above: Performed By: #### 2 52467 #### [facility],[address] [place] [address] 74414 GFR/1.73 sq M.predicted among non-blacks MDRD (S/P/Bld) [Vol rate/Area] mL/min/{1.73_m2} Normal 60 - 999 [facility] Comment on above: Result Comment: ACCO RDING TO THE NATIONAL KIDNEY DISEASE EDUCATION PROGRAM(NKDE), A NORMAL eGFR IS A VALUE GREATER THAN OR EQUAL TO 60 ML/MIN/1.73 SQ METERS. CHRONIC KIDNEY DISEASE: <60mL/MIN/1.73 SQ METERS KIDNEY FAILURE: <15mL/MIN/1.73 SQ METERS THIS TEST SHOULD ONLY BE USED FOR PATIENTS 18 YEARS OF AGE AND OLDER. Performed By: #### 2 70844 #### [facility],[address] [place] [address] 28127 Globulin (S) [Mass/Vol] 2.9 g/dL Normal 1.5 - 3.8 [facility] Comment on above: Performed By: #### 2 36586 #### [facility],[address] [place] [address] 43093 Glucose [Mass/Vol] 109 mg/dL High 74 - 106 [facility] Comment on above: Performed By: #### 2 09342 #### [facility],[address] [place] [address] 07289 Potassium [Moles/Vol] 4.6 mmol/L Normal 3.5 - 5.1 [facility] Comment on above: Performed By: #### 2 79348 #### [facility],[address] [place] [address] 96617 Protein [Mass/Vol] 6.3 g/dL Low 6.4 - 8.2 [facility] Comment on above: Performed By: #### 2 95617 #### [facility],[address] [place] [address] 33858 Sodium [Moles/Vol] 135 mmol/L Low 136 - 145 [facility] Comment on above: Performed By: #### 2 32499 #### [facility],[address] [place] [address] 16566 Urea nitrogen [Mass/Vol] 7 mg/dL Normal 7 - 18 [facility] Comment on above: Performed By: #### 2 66906 #### [facility] [place] [address] 36318 CORONAVIRUS (SARS) ANTIGEN T ESTon 08-07-2024 EXTERNAL QC DONE? YES Normal [facility] Comment on above: Performed By: #### 2 54319 ####[facility],[address] [place] [address] 69930 INTERNAL CONTROL PASS Normal [facility] Comment on above: Performed By: #### 2 84667 ####[facility],[address] [place] [address],[facility] 47468 SARS ANTIGEN Negative Normal NORMAL: NEGATIVE [facility] Comment on above: Performed By: #### 2 49280 ####[facility],[address] [place] [address],[facility] [address] SEND TO ? NO Normal [facility] Comment on above: Result Comment: SARS -CoV-2 THIS TEST IS BEING USED UNDER THE FDA EUA PROCEDURE. THIS ASSAY HAS BEEN VALIDATED AT [facility] FOR USE WITH NASAL AND NASOPHARYNGEAL [...] PUBLIC HEALTH AUTHORITIES. Performed By: #### 2 41606 ####[facility],[address] [place] [address] CT CHEST (PE PROTOCOL)on CT CHEST (PE PROTOCOL) [place] [id number] Patient: BRANDIE KISER Phone#: : 1935 Age: 88 Gender: F Pt. Type: ER Account: [id number] Location: [facility] Ordering: QUANG SALAS Exam Date: 08/07/2024/11:41 Family Phys: Charge Code: [id number] Physician: Murray Order #: [id number] Dose#: [id number] PROCEDURE: CT CHEST WITH CONTRAST [...] is no evidence of focal parenchymal abnormality. [address] [address] Patient: BRANDIE KISER Phone#: : 1935 Age: 88 Gender: F Pt. Type: ER Account: [id number] Location: [facility] Ordering: QUANG SALAS Exam Date: 08/07/2024/11:41 Family Phys: Charge Code: [id number] Physician: Murray Order #: [id number] Dose#: 5.90 Dictated by: Rayna Kinney MD on 08/07/2024 at 12:24 Approved by: Rayna Kinney MD on 08/07/2024 at 12:29 Normal [facility] ED MED ADMINISTRATION DETAIL on 08-07-2024 ED MED ADMINISTRATION DETAIL Fnp Medication Administration Record [address] [address] [id number] 08/07/2024 Patient: BRANDIE KISER Sex: Female : [...] (NOW x1) Scanned 1 of 1 Normal [facility] ED NURSES CLINICAL NOTEon ED NURSES CLINICAL NOTE Nurse Narrative Nurse Clinical Narrative [address] [address] [id number] 08/07/2024 Patient: BRANDIE KISER Sex: Female : 1935 Age: 88y Disposition: Admit to [facility] Disposition Decision Time: 12:55 08/07/2024 Departure Time: [...] HR: 81 bpm. O2 saturation: 85%. -- 10:08/07/24 HERMES Schilling R.N. 10:24 08/07/24. BP: 126/61 MAP: 85 mmHg. HR: 77 bpm. -- 10:08/07/24 HERMES Schilling R.N. 10:08/07/24. O2 saturation: 94% on nasal cannula at 3 liters/minute. Temperature: 98 F (oral). Pain level now 5/10. Describes the pain as pressure. -- 10:08/07/24 HERMES Schilling R.N. 10:08/07/24. RR: 18. O2 [...] DAILY ONE HOUR BEFORE A MEAL -- 10:08/07/24 HERMES Schilling R.N. sertraline 50 mg tablet: Take 1 tablet every day by mouth as directed, for anxiety and depression. -- 10:08/07/24 HERMES Schilling R.N. potassium chloride ER 10 mEq tablet,extended release: take 1 tablet by mouth daily -- 10:08/07/24 HERMES Schilling R.N. ondansetron 4 mg disintegrating tablet: TAKE 1 TABLET BY MOUTH EVERY 6 HOURS NEEDED FOR NAUSEA - DISSOLVE ON TONGUE THEN SWALLOW -- 10:08/07/24 HERMES Schilling R.N. omeprazole 40 mg capsule,delayed release: take 1 capsule by mouth daily -- 10:39 08/07/24 HERMES Schilling R.N. mupirocin 2 % topical ointment: Apply topically up to twice daily to affected areas -- 10:39 08/07/24 HERMES Schilling R.N. metoprolol tartrate 25 mg tablet: take 1 tablet by mouth daily -- 10:39 08/07/24 HERMES Schilling R.N. fluorouracil 5 % topical cream: Apply topically to the affected area TWICE DAILY FOR EIGHT WEEKS -- 10:39 08/07/24 HERMES Schilling R.N. atorvastatin 20 mg tablet: take 1 tablet by mouth daily -- 10:39 08/07/24 HERMES Schilling R.N. MediHoney (honey) 80 % [...] 08/07/24 HERMES Schilling R.N.Correction -- 13:09 08/07/24 EST Graciela Schilling R.N. metoprolol tartrate 25 mg tablet: [...] SURGERIES: C (more content not included)... Normal [facility] ED ORDER SHEET (CPOE ONLY)on 08-07-2024 ED ORDER SHEET (CPOE ONLY) Order Sheet Order Sheet [address] [place] [address] [id number] 08/07/2024 Patient: BRANDIE KISER Sex: Female : 1935 Age: 88y MEASUREMENTS: Wt: 65.8 kg, Ht/Martínez: 62.0 in, BMI: 26.52 ALLERGIES: Penicillins, codeine MEDICATION/IV/DRIP/FLUID ORDERS Order Description Priority Entered Acknowledged Completed Piperacillin-Tazobac (Zosyn) 10:34 08/07/2024 10:52 10:57 IVPB 3.375gm/50ml NS3.375 g Quagn Salas, 08/07/2024 08/07/2024 diluted in sodium chloride IVPB D.O. Bc Schmidt, 0.9 % Minibag+ 50 mL at 100 R.N. R.N. mL/hr (NOW x1) Reason for ordering with alerts: Benefits outweigh risks --10:34 08/07/2024 Quang Salas D.O. IV NS 0.9 %1000 mL at 250 10:34 08/07/2024 10:52 mL/hr (NOW x1) Quang Salas, 08/07/2024 DDavidODavid Robledo R.NDavid Albuterol-Ipratropium (DuoNeb) 12:37 08/07/2024 13:11 3mg/0.5mg Neb Tx3 mL (NOW Quang Salas, 08/07/2024 x1) Mary Worley Reason for ordering with alerts: Benefits outweigh risks --12:37 08/07/2024 Quang Salas D.O. 1 of 3 Order Sheet LAB ORDERS Order Description Priority Entered Acknowledged Collected Completed CBC w Diff Stat Stat 10:34 08/07/2024 10:41 08/07/2024 10:46 08/07/2024 Bc Turner R.N. Kobe Miller, R.N. D.O. CMP Stat Stat 10:34 08/07/2024 10:41 08/07/2024 10:46 08/07/2024 Bc Turner R.N. Kobe Miller R.N. Jasper.O. Troponin-I Stat Stat 10:34 08/07/2024 10:41 08/07/2024 10:46 08/07/2024 Bc Turner R.N. Kobe Miller, R.N. D.ODavid EKG - ED Stat Stat 10:34 08/07/2024 10:41 08/07/2024 10:46 08/07/2024 Bc Turner R.N. Kobe Miller, R.N. D.O. Flu Swab (Influenzae Stat 10:34 08/07/2024 10:41 [...] Stat Stat 10:34 08/07/2024 10:41 10:46 Quang Salas 08/07/2024 08/07/2024 Bc Roberts R.N. R.NDavid Order Comments: 10:34 08/07/2024: Status: Not . Quang Salas D.O. Reason for Study: Pulmonary Disease STAFF ORDERS Order Description Priority Entered Acknowledged Collected Completed IV Saline Lock 10:34 08/07/2024 10:41 08/07/2024 10:46 08/07/2024 Bc Turner R.N. Kobe Miller, R.N. D.ODavid Security Incident Response Specialist 10:34 08/07/2024 10:41 08/07/2024 10:46 08/07/2024 Bc Turner R.N. Kobe Miller, R.N. D.O. Oxygen titrate to 92% 10:34 08/07/2024 10:41 08/07/2024 10:46 08/07/2024 Bc Turner R.N. Kobe Miller, R.N. D.O. [Electronically signed by Quang Salas D.O. (08/07/2024 18:24 EST)] 3 of 3 Normal [facility] ED PHYSICIAN CLINICAL REPORT on 08-07-2024 ED PHYSICIAN CLINICAL REPORT Narrative Physician Clinical Narrative [place] [id number] [place] [address] [id number] 08/07/2024 Patient: BRANDIE KISER Sex: Female : 1935 Age: 88y Disposition: Admit to [facility] Disposition Decision Time: 12:55 08/07/2024 Departure Time: [...] affected area TWICE DAILY FOR EIGHT WEEKS Halimaney (honey) 80 % topical gel: Apply 1 [...] Final Below (more content not included)... Normal [facility] ED SUPER BILLon 08-07-2024 ED SUPER BILL [facility] [address] [place] [address] [id number] 08/07/2024 Patient: BRANDIE KISER Sex: Female : 1935 Age: 88y Facility Professional Category Item Description Code Code Quantity Fee Total Nurse/E/M EMERGENCY 698545 1 $0.00 $0.00 DEPT VISIT HIGH SEVERITYFUNCJ (89921-31) Nurse/IV/IM/Infusions Drip/IVPB 241232 2 $0.00 $0.00 additional hour (45887) Nurse/IV/IM/Infusions Drip/IVPB initial 987428 1 $0.00 $0.00 (62446) Nurse/IV/IM/Infusions Hydration 179487 1 $0.00 $0.00 additional hour (53535) Nurse/Procedures Respiratory 909950 1 $0.00 $0.00 therapy - inhalation (98378) Grand $0.00 Total Providers Quang Salas D.O. 1 of 2 [facility] Chief Complaint FEVER and NOT FEELING WELL. Principal Diagnosis Cellulitis of the left lower leg. Probable hypoxia. ICD-10 Codes L03.116: Cellulitis of left lower limb 2 of 2 Normal [facility] ED VISIT SUMMARYon ED VISIT SUMMARY Visit Overview Visit Overview [address] [place] [address] [id number] 08/07/2024 Patient: BRANDIE KISER Sex: Female : [...] affected area TWICE DAILY FOR EIGHT WEEKS Visit Overview MediMatthieuney (honey) 80 % topical gel: Apply 1 [...] Vitals Last Vitals Temp 10:17 08/07/24 Temp 16:08/07/24 BP 10:08/07/24 BP 16:08/07/24 127/60 HR 10:08/07/24 81 HR 16:08/07/24 80 RR 10:08/07/24 RR 16:08/07/24 O2 Sat 10:08/07/24 85% O2 Sat 16:08/07/24 Pain 10:08/07/24 Pain 16:08/07/24 ETCO2 10:08/07/24 ETCO2 16:08/07/24 GCS 10:08/07/24 GCS 16:09 01/10/25 RTS 10:17 08/07/24 RTS 16:09 08/07/24 PROCEDURES [...] FAILURE PROBABLE HYPOXIA 4 of 4 Normal [facility] ED VITALS FLOW SHEETon 08-07 ED VITALS FLOW SHEET Vitals Vital Sign Flow Sheet [facility] [address] [place] [address] [id number] 08/07/2024 Patient: BRANDIE KISER Sex: Female : [...] 08/07/2024 81 85% 4 of 4 Normal [facility] INFLUENZA VIRUS RAPID A/Bon 08-07-2024 INFLUENZA [...] TO THREE DAYS. RESULT CRITICAL? NO Normal [facility] Comment on above: Performed By: #### 2 [id number] ####[address] [address] LACTATEon 08-07-2024 Lactate [Moles/Vol] 1.1 mmol/L Normal 0.4 - 2.0 [facility] Comment on above: Performed By: #### 2 90584 #### [facility],[address] [place] [address] TROPONINon 08-07-2024 HS TROPONIN 7.3 pg/mL Normal 0.0 - 51.4 [facility] Comment on above: Performed By: #### 2 39966 #### [facility],[address] [place] [address] CBC + DIFFon 08-02-2024 Baso # 0.04 x10EE3/UL Normal 0.00 - 0.10 [facility] Comment on above: Performed By: #### 2 29303 #### [facility],[address] [place], [place] [address] Basophils/100 WBC (Bld) 0.6 % Normal 0.0 - 2.0 [facility] Comment on above: Performed By: #### 2 45365 #### [facility],[address] [place] [address] CBC + DIFF Normal [facility] Comment on above: Result Comment: CBC- COMPLETE BLOOD COUNT Performed By: #### 2 08308 #### [facility],[address] [place] [address] EO # 0.32 x10EE3/UL Normal 0.00 - 0.50 [facility] Comment on above: Performed By: #### 2 00182 #### [facility],[address] [place] [address] Eosinophils/100 WBC (Bld) 4.6 % Normal 0.0 - 7.0 [facility] Comment on above: Performed By: #### 2 05175 #### [facility],[address] [place] [address] Erythrocyte distribution width (RBC) [Ratio] 14.2 % Normal 12.0 - 15.6 [facility] Comment on above: Performed By: #### 2 05305 #### [facility],[address] [place] [address] Hematocrit (Bld) [Volume fraction] 45.6 % Normal 34.0 - 46.0 [facility] Comment on above: Performed By: #### 2 53722 #### [facility],[address] [place], [place] [address] Hemoglobin (Bld) [Mass/Vol] 15.0 g/dL Normal 12.0 - 16.0 [facility] Comment on above: Performed By: #### 2 85264 #### [facility],[address] [place] [address] Lymph # 1.98 x10EE3/UL Normal 0.80 - 2.80 [facility] Comment on above: Performed By: #### 2 64221 #### [facility],[address] [place] [address] Lymphocytes/100 WBC (Bld) 28.3 % Normal 20.0 - 45.0 [facility] Comment on above: Performed By: #### 2 93417 #### [facility],[address] [place] [address] MANUAL DIFF N/A Normal [facility] Comment on above: Performed By: #### 2 56316 #### [facility],[address] [place] [address] MCH (RBC) [Entitic mass] 28 pg Normal 27 - 33 [facility] Comment on above: Performed By: #### 2 97964 #### [facility],[address] [place] [address] MCHC 33 X10 3 Normal 32 - 36 [facility] Comment on above: Performed By: #### 2 85113 #### [facility],[address] [place], [place] [address] MCV (RBC) [Entitic vol] 85 fL Normal 80 - 99 [facility] Comment on above: Performed By: #### 2 60372 #### [facility],[address] [place] [address] Meeker # 0.51 x10EE3/UL Normal 0.20 - 1.00 [facility] Comment on above: Performed By: #### 2 53561 #### [facility],[address] [place] [address] MONOS % 7.2 % Normal 0.0 - 10.0 [facility] Comment on above: Performed By: #### 2 81273 #### [facility],[address] [place], [place] [address] Morphology Michael (Bld) [Interp] N/A Normal [facility] Comment on above: Performed By: #### 2 34331 #### [facility],[address] [place] [address] 14513 Neut # 4.14 x10EE3/UL Normal 1.50 - 7.10 [facility] Comment on above: Performed By: #### 2 75772 #### [facility],[address] [place], [place] [address] Neutrophils/100 WBC (Bld) 59.3 % Normal 46.0 - 76.0 [facility] Comment on above: Performed By: #### 2 44819 #### [facility],[address] [place], [place] [address] PLATELET 203 x10EE3/UL Normal 150 - 450 [facility] Comment on above: Performed By: #### 2 74262 #### [facility],[address] [place], [place] [address] Platelet mean volume (Bld) [Entitic vol] 7.7 fL Normal 6.6 - 10.5 [facility] Comment on above: Result Comment: AUTO MATED DIFFERENTIAL Performed By: #### 2 28307 #### [facility],[address] [place] [address] 64195 RBC 5.38 x 10EE6/UL High 4.10 - 5.30 [facility] Comment on above: Performed By: #### 2 58036 #### [facility],[address] [place] [address]5006 WBC 7.0 x 10EE3/UL Normal 4.5 - 10.8 [facility] Comment on above: Performed By: #### 2 24184 #### [facility],[address] [place] [address] CMP with eGFRon 08-02-2024 AGE 88 years Normal [facility] Comment on above: Performed By: #### 2 41463 #### [facility],[address] [place] [address] 33693 Albumin [Mass/Vol] 3.5 g/dL Normal 3.4 - 5.0 [facility] Comment on above: Performed By: #### 2 06397 #### [facility],[address] [place] [address] Albumin/Globulin [Mass ratio] 1.1 {ratio} Normal 0.9 - 1.6 [facility] Comment on above: Performed By: #### 2 99088 #### [facility],[address] [place] [address] 49982 ALK PHOS 170 U/L High 46 - 116 [facility] Comment on above: Performed By: #### 2 62776 #### [facility],[address] [place] [address] 34882 ALT [Catalytic activity/Vol] 23 U/L Normal 16 - 63 [facility] Comment on above: Performed By: #### 2 74603 #### [facility],[address] [place] [address] 75670 Anion gap [Moles/Vol] 12 mmol/L Normal 10 - 20 [facility] Comment on above: Performed By: #### 2 61103 #### [facility],[address] [place] [address] 36073 AST [Catalytic activity/Vol] 25 U/L Normal 13 - 39 [facility] Comment on above: Performed By: #### 2 73873 #### [facility],[address] [place] [address] 18747 B/C RATIO 10 ratio Normal 0 - 30 [facility] Comment on above: Performed By: #### 2 62649 #### [facility],[address] [place] [address] 63186 Bilirubin [Mass/Vol] 0.9 mg/dL Normal 0.2 - 1.0 [facility] Comment on above: Performed By: #### 2 95689 #### [facility],[address] [place] [address]703 Calcium [Mass/Vol] 8.9 mg/dL Normal 8.5 - 10.1 [facility] Comment on above: Performed By: #### 2 41586 #### [facility],[address] [place], [place] [address] Chloride [Moles/Vol] 104 mmol/L Normal 98 - 107 [facility] Comment on above: Performed By: #### 2 99950 #### [facility],[address] [place] [address]122 CMP with eGFR Normal [facility] Comment on above: Result Comment: COMP REHENSIVE METABOLIC PANEL Performed By: #### 2 27544 #### [facility],[address] [place] [address]79 CO2 [Moles/Vol] 26.7 mmol/L Normal 21.0 - 32.0 [facility] Comment on above: Performed By: #### 2 71191 #### [facility],[address] [place] [address]66 Creatinine [Mass/Vol] 0.70 mg/dL Normal 0.55 - 1.02 [facility] Comment on above: Performed By: #### 2 26297 #### [facility],[address] [place] [address] 22581 GFR/1.73 sq M.predicted among non-blacks MDRD (S/P/Bld) [Vol rate/Area] mL/min/{1.73_m2} Normal 60 - 999 [facility] Comment on above: Performed By: #### 2 32984 #### [facility],[address] [place] [address] Result Comment: ACCO RDING TO THE NATIONAL KIDNEY DISEASE EDUCATION PROGRAM(NKDE), A NORMAL eGFR IS A VALUE GREATER THAN OR EQUAL TO 60 ML/MIN/1.73 SQ METERS. CHRONIC KIDNEY DISEASE: <60mL/MIN/1.73 SQ METERS KIDNEY FAILURE: <15mL/MIN/1.73 SQ METERS THIS TEST SHOULD ONLY BE USED FOR PATIENTS 18 YEARS OF AGE AND OLDER. Globulin (S) [Mass/Vol] 3.1 g/dL Normal 1.5 - 3.8 [facility] Comment on above: Performed By: #### 2 62378 #### [facility],[address] [place] [address] Glucose [Mass/Vol] 108 mg/dL High 74 - 106 [facility] Comment on above: Performed By: #### 2 66072 #### [facility],[address] [place] [address] Potassium [Moles/Vol] 3.9 mmol/L Normal 3.5 - 5.1 [facility] Comment on above: Performed By: #### 2 89209 #### [facility],[address] [place] [address]37 Protein [Mass/Vol] 6.6 g/dL Normal 6.4 - 8.2 [facility] Comment on above: Performed By: #### 2 43234 #### [facility],[address] [place] [address]250 Sodium [Moles/Vol] 139 mmol/L Normal 136 - 145 [facility] Comment on above: Performed By: #### 2 17636 #### [facility],[address] [place] [address] 44555 Urea nitrogen [Mass/Vol] 7 mg/dL Normal 7 - 18 [facility] Comment on above: Performed By: #### 2 59423 #### [facility],[address] [place] [address] TIB/FIB C+ LTon 5 CT TIB/FIB C+ LT [place] [id number] Patient: BRANDIE KISER Phone#: : 1935 Age: 88 Gender: F Pt. Type: ER Account: [id number] Location: 052 Ordering: DENIS Guillermo BAL Exam Date: 08/02/2024/10:41 Family Phys: TOSHA XAVIER Charge Code: 967270 Physician: Murray Order #: [id number] Dose#: 14.4 mGy PROCEDURE: CT TIB FIB [...] Rayna Kinney MD on 08/02/2024 at 11:22 [facility] ED MED ADMINISTRATION DETAIL on 08-02-2024 ED MED ADMINISTRATION DETAIL Fnp Medication Administration Record [address] [address] [id number] 08/02/2024 Patient: BRANDIE KISER Sex: Female : 1935 Age: 88y MEASUREMENTS: Wt: 65.8 kg, Ht/Martínez: 62.0 in, BMI: 26.52 ALLERGIES: Penicillins, codeine Medication Ordered Medication Administration Date/Time [facility] ED NURSES CLINICAL NOTEon ED NURSES CLINICAL NOTE Nurse Narrative Nurse Clinical Narrative [address] [address] [id number] 08/02/2024 Patient: BRANDIE KISER Sex: Female : [...] of infection. -- 09:37 08/02/24 HERMES Ackerman R.N. 09:37 08/02/24. BP: 159/91 taken on right arm, while sitting. MAP: 114. HR: 82. Regular. RR: 16. Regular and unlabored. O2 saturation: 94% on room air. Temperature: 97.7 F (temporal). Pain level now 8/10. -- 09:37 08/02/24 HERMES Ackerman R.N. Measurements: 09:37 08/02/24 Wt: 65.8 kg, Ht/Martínez: 62.0 in, BMI: 26.52 -- 09:37 08/02/24 HERMES Ackerman R.N. Medications: home medications unknown -- 09:34 08/02/24 HERMES Ackerman R.N. 1 of 4 Nurse Narrative potassium chloride ER 10 mEq tablet,extended release: 1 tablet once a day. -- 09:51 08/02/24 HERMES Up R.N. omeprazole 40 mg capsule,delayed release: 1 capsule once a day. -- 09:08/02/24 HERMES pU R.N. mupirocin 2 % topical ointment: 1 twice a day as needed. -- 09:08/02/24 HERMES Up R.N. minocycline 100 mg capsule: 1 capsule twice a day. (for 14 days, filled 07/14.) -- 09:08/02/24 HERMES Up R.N. metoprolol tartrate 25 mg [...] 08/02/24 Rodrigue Frazier.N. 09:32 08/02/24. Preferred pharmacy ([facility]). -- 09:37 08/02/24 HERMES Ackerman R.Gilles. ADDITIONAL SURGERIES: Cardiac Catheterization. Two stents placed. [...] patient. -- 09:37 08/02/24 HERMES Ackerman R.N. 10:26 08/02/24. Advanced care plan discussed with patient (Full Code). -- 10:08/02/24 HERMES Ackerman R.N. PHYSICAL ASSESSMENT 09:45 08/02/24. Ambulatory to room. 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 Pt states treatment last five [...] is warm and dry. -- 10:24 08/02/24 HERMES Ackerman R.N. NURSING PROGRESS NOTES 0 (more content not included)... Normal [facility] ED ORDER SHEET (CPOE ONLY)on 08-02-2024 ED ORDER SHEET (CPOE ONLY) Order Sheet Order Sheet [address] [place] [address] [id number] 08/02/2024 Patient: BRANDIE KISER Sex: Female : 1935 Age: 88y MEASUREMENTS: Wt: 65.8 kg, Ht/Martínez: 62.0 in, BMI: 26.52 ALLERGIES: Penicillins, codeine MEDICATION/IV/DRIP/FLUID ORDERS Order Description Priority Entered Acknowledged Completed LAB ORDERS Order Description Priority Entered Acknowledged Collected Completed CBC w Diff Stat Stat 09:50 08/02/2024 09:51 08/02/2024 09:59 08/02/2024 Jon Agosto Lucas Eastep, D.O. R.NDavid RDavidNDavid CMP Stat Stat 09:50 08/02/2024 09:51 08/02/2024 09:59 08/02/2024 Jon Aogsto Lucas Eastep, D.O. R.N. R.NDavid DIAGNOSTIC STUDY ORDERS Order Description Priority Entered Acknowledged Completed CT LT Tib/fib w Cont Stat Stat 09:50 08/02/2024 09:51 12:27 Denis Caballero D.O. 08/02/2024 08/02/2024 Jon Hankins R.NDavid R.NDavid 1 of 2 Order Sheet Reason for Study: Infection STAFF ORDERS Order Description Priority Entered Acknowledged Collected Completed IV Saline Lock 09:50 08/02/2024 09:51 08/02/2024 09:59 08/02/2024 Jon Agosto Lucas Eastep, D.O. R.N. R.NDavid [Electronically signed by Denis Caballero D.O. (08/02/2024 11:41 EST)] 2 of 2 Normal [facility] ED PHYSICIAN CLINICAL REPORT on 08-02-2024 ED PHYSICIAN CLINICAL REPORT Narrative Physician Clinical Narrative [address] [address] [id number] 08/02/2024 Patient: BRANDIE KISER Sex: Female : [...] 1.50 - 7.10 Final EST 08/02/2024 10:09 Meeker # 0.51 x10/UL 0.20 - 1.00 Final [...] 10:28 ES (more content not included)... Normal [facility] ED SUPER BILLon 08-02-2024 ED SUPER BILL [place] [address] [facility] [address] [id number] 08/02/2024 Patient: BRANDIE KISER Sex: Female : 1935 Age: 88y Item Professional Category Description Facility Code Code Quantity Fee Total Nurse/E/M EMERGENCY 331921 1 $0.00 $0.00 DEPARTMENT VISIT HIGH/URGENT SEVERITY (40233-01) Grand Total $0.00 Providers Denis Caballero D.O. Chief Complaint LOWER EXTREMITY PAIN and SWELLING. Principal Diagnosis Cellulitis of the left lower leg. ICD-10 Codes 1 of 2 [facility] L03.116: Cellulitis of left lower limb 2 of 2 Normal [facility] ED VISIT SUMMARYon ED VISIT SUMMARY Visit Overview Visit Overview [place] [address] [place] [address] [id number] 08/02/2024 Patient: BRANDIE KISER Sex: Female : [...] calf, started a topical treatment from the top collar baster on 05/29. Pt states treatment last five [...] THE LEFT LOWER LEG 3 of 3 Normal [facility] ED VITALS FLOW SHEETon 08-02 ED VITALS FLOW SHEET Vitals Vital Sign Flow Sheet [address] [place] [address] [id number] 08/02/2024 Patient: BRANDIE KISER Sex: Female : 1935 Age: 88y Measurements Wt: 65.8 kg, Ht/Martínez: 62.0 in, BMI: 26.52 Measured Time BP MAP HR RR O2Sat ETCO2 Temp Pain GCS RTS 11:49 08/02/2024 140/73 95 81 14 94% RA 7 09:37 08/02/2024 159/91 114 82 16 94% RA 97.7 F 8 1 of 1 Normal [facility] BASIC METABOLIC PANELon 10-0 Anion gap [Moles/Vol] 1 mmol/L Low 8-12 [facility] [employer] Comment on above: Performed By: #### 4 [id number], [id number], [id number], [id number], [id number], [id number] #### [place] [address] Calcium [Mass/Vol] 9.1 mg/dL Normal 8.4-10.4 [facility] [employer] [facility] Comment on above: Performed By: #### 4 [id number], [id number], [id number], [id number], [id number], [id number] #### [place] [address] [place], [place] [address] Chloride [Moles/Vol] 108 mmol/L Normal 96-109 [facility] Comment on above: Performed By: #### 4 [id number], [id number], [id number], [id number], [id number], [id number] #### [place] [address] [place] [address] [facility] CO2 [Moles/Vol] 30 mmol/L Normal 22-[address] [facility] Comment on above: Performed By: #### 4 [id number], [id number], [id number], [id number], [id number], [id number] #### [facility] [address] Creatinine [Mass/Vol] 0.67 mg/dL Normal 0.52-1.04 [facility] Comment on above: Performed By: #### 4 [id number], [id number], [id number], [id number], [id number], [id number] #### [place] [address] GLOMERULAR FILTRATION RATE ML/MIN/1.73 SQ M.PREDICTED 85.2 mL/min/1.73m*2 Normal >=60.[address] [facility] Comment on above: Result Comment: eGFR calculation [...] Kidney Int Suppl.2013;3:1-150 Performed By: #### 4 [id number], [id number], [id number], [id number], [id number], [id number] #### [address] [place] [address] [facility] Glucose [Mass/Vol] 127 mg/dL High 65-100 [facility] Comment on above: Performed By: #### 4 [id number], [id number], [id number], [id number], [id number], [id number] #### [address] Potassium [Moles/Vol] 4.4 mmol/L Normal 3.6-5.1 [facility] Comment on above: Performed By: #### 4 [id number], [id number], 08999443, 20602673, 81173895, [id number] #### [address] Sodium [Moles/Vol] 139 mmol/L Normal 135-147 [facility] Comment on above: Performed By: #### 4 [id number], [id number], 82372514, 99353988, 25553943, [id number] #### [address] Urea nitrogen [Mass/Vol] 8 mg/dL Normal 8-[address] [facility] Comment on above: Performed By: #### 4 [id number], [id number], 10105256, 18377560, 43527810, [id number] #### [address] CBC AND DIFFERENTIALon 05-06 ABSOLUTE BASOPHIL 0.0 x10*3/uL Normal 0.0-0.1 [facility] Comment on above: Performed By: #### 4 [id number] #### [address] ABSOLUTE EOSINOPHIL 0.3 x10*3/uL Normal 0.1-0.3 [facility] Comment on above: Performed By: #### 4 [id number] #### [address] ABSOLUTE IMMATURE GRANULOCYTES 0.0 x10*3/uL Normal 0.0-0.[address] [facility] Comment on above: Performed By: #### 4 [id number] #### [address] ABSOLUTE LYMPH 2.0 x10*3/uL Normal 1.2-3.[address] [facility] Comment on above: Performed By: #### 4 [id number] #### [address] ABSOLUTE MONO 0.5 x10*3/uL Normal 0.2-0.[address] [facility] Comment on above: Performed By: #### 4 [id number] #### [address] ABSOLUTE NEUTROPHIL 4.0 x10*3/uL Normal 2.4-6.6 [facility] Comment on above: Performed By: #### 4 [id number] #### [address] Basophils/100 WBC (Bld) 0.4 % [facility] Comment on above: Performed By: #### 4 [id number] #### [address] Eosinophils/100 WBC (Bld) 4.4 % [facility] Comment on above: Performed By: #### 4 [id number] #### [address] Erythrocyte distribution width (RBC) [Ratio] 14.6 % High 11.5-14.[address] [facility] Comment on above: Performed By: #### 4 [id number] #### [address] Hematocrit (Bld) [Volume fraction] 48.3 % High 33.6-46.[address] [facility] Comment on above: Performed By: #### 4 [id number] #### [address] Hemoglobin (Bld) [Mass/Vol] 14.8 g/dL Normal 11.7-15.[address] [facility] Comment on above: Performed By: #### 4 [id number] #### [address] Immature granulocytes/100 WBC (Bld) 0.1 % [facility] Comment on above: Performed By: #### 4 [id number] #### [address] Lymphocytes/100 WBC (Bld) 28.8 % Normal [facility] Comment on above: Performed By: #### 4 [id number] #### [address] MCH (RBC) [Entitic mass] 27.1 pg Low 27.5-32.[address] [facility] Comment on above: Performed By: #### 4 [id number] #### [address] MCHC (RBC) [Mass/Vol] 30.6 g/dL Low 30.7-35.5 Gen [facility] Comment on above: Performed By: #### 4 [id number] #### [address] MCV (RBC) [Entitic vol] 88.5 fL Normal 80.2-[address] [facility] Comment on above: Performed By: #### 4 [id number] #### [address] Monocytes/100 WBC (Bld) 7.1 % Normal [facility] Comment on above: Performed By: #### 4 [id number] #### [address] Neutrophils/100 WBC (Bld) 59.2 % Normal [facility] Comment on above: Performed By: #### 4 [id number] #### [address] NUCLEATED RED BLOOD CELLS AUTO 0.0 % Normal 0.0-1.[address] [facility] Comment on above: Performed By: #### 4 [id number] #### [address] PLATELET COUNT 164 x10*3/uL Normal 150-[address] [facility] Comment on above: Performed By: #### 4 [id number] #### [address] RED BLOOD CELL COUNT 5.46 x10*6/uL High 3.60-5.20 [facility] Comment on above: Performed By: #### 4 [id number] #### [address] WHITE BLOOD CELLS 6.8 x10*3/uL Normal 4.3-10.3 [facility] Comment on above: Performed By: #### 4 [id number] #### [address] HEMOGLOBIN A1Con 05-06-2024 HbA1c (Bld) [Mass fraction] 5.9 % High 4.8-5.[address] [facility] Comment on above: Order Comment: Perfo rmed at: 01 - [facility] [address] [id number] Aerial Survey Technician: Brenton Boyle PhD, Phone: [phone] Result Comment: Pred iabetes: 5.7 - 6.4 Diabetes: >6.4 Glycemic control for adults with diabetes: <7.0 Performed By: #### 4 [id number] #### [facility] [address] [place] [address] HEPATIC FUNCTION PANELon Albumin [Mass/Vol] 4.0 g/dL Normal 3.5-5.0 [facility] Comment on above: Performed By: #### 4 [id number], [id number], 99116681, 93605302, 74766474, 71408960 #### [address] ALK PHOS 130 U/L High 24-[address] [facility] Comment on above: Performed By: #### 4 [id number], [id number], 51525523, 06550022, 70007791, 23854012 #### [address] ALT [Catalytic activity/Vol] 28 U/L Normal 4-[address] [facility] Comment on above: Performed By: #### 4 [id number], 87320410, 91765977, 84200763, 44312960, 38904277 #### [address] AST [Catalytic activity/Vol] 37 U/L Normal 3-[address] [facility] Comment on above: Performed By: #### 4 8430514, 75080248, 58795612, 44638714, 45837564, 50765365 #### [address] Bilirubin [Mass/Vol] 1.3 mg/dL Normal 0.2-1.6 [facility] Comment on above: Performed By: #### 4 [id number], 74500803, 86744684, 20918417, 08580777, 96943518 #### [address] Bilirubin.indirect [Mass/Vol] 0.4 mg/dL Normal <=0.[address] [facility] Comment on above: Performed By: #### 4 [id number], 04746747, 18056884, 95832239, 15111325, 90384214 #### [address] Protein [Mass/Vol] 6.6 g/dL Normal 6.3-8.2 [facility] Comment on above: Performed By: #### 4 0255733, 89164746, 42673452, 26772093, 48151750, 93191238 #### [address] LIPID PANELon 05-06-2024 Cholesterol [Mass/Vol] 124 mg/dL Normal <=200 [facility] Comment on above: Performed By: #### 4 [id number], 60585248, 45294886, 91824916, 84573173, 61717364 #### [address] Cholesterol in HDL [Mass/Vol] 57.0 mg/dL Normal 40.0-59.[address] [facility] Comment on above: Performed By: #### 4 [id number], 03945785, 14854389, 69746609, 63342272, 86745365 #### [address] LDL CHOLESTEROL CALCULATED 34 mg/dL Normal <=[address] [facility] Comment on above: Result Comment: LDL REFERENCE RANGE: Optimal <100 mg/dl Near Optimal 100-129 mg/dL Borderline High 130-159 mg/dL High 160-189 mg/dL Very High >=190 mg/dL Performed By: #### 4 3244536, 97523657, 92380987, 90399097, 89672274, 59187633 #### [address] Triglyceride [Mass/Vol] 165 mg/dL High <=[address] [facility] Comment on above: Performed By: #### 4 1521653, 65292336, 21917031, 40984748, 35611275, 99239369 #### [address] VLDL CHOLESTEROL NAYA 33 mg/dL Normal <=41 [facility] Comment on above: Performed By: #### 4 4160286, 58520751, 00903181, 41146923, 74848877, 27296244 #### [address] TSHon 05-06-2024 TSH 2.270 uIU/mL Normal 0.465-4.[address] [facility] Comment on above: Performed By: #### 4 3051493, 31082386, 95534878, 61794782, 51297903, 30590159 #### [address] VITAMIN B12on 05-06-2024 Cobalamin (Vitamin B12) [Mass/Vol] 249 pg/mL Normal 239-[address] [facility] Comment on above: Performed By: #### 4 [id number], 45247231, 58165056, 91322995, 02201965, 24843273 #### [address] VITAMIN D 25 HYDROXYon 05-06 VITAMIN D 25 HYDROXY 25.5 ng/mL Normal [facility] Comment on above: Result Comment: Refe jesus manuelce Range: Deficiency: <20 ng/mL Insufficiency: 21-29 ng/mL Optimal Level: >=30 ng/mL Possible Toxicity: >80 ng/mL 80 ng/mL is the lowest reported level associated with toxicity in patients without primary hyperthyroidism who have normal renal function. Performed By: #### 4 [id number], 38002730, 79221279, 98562035, 73055794, [id number] #### [address] ECG 12 lead - CLINIC PERFORM EDon 12-26-2023 [facility] Absolute lymphocyte countOrd ered By: Pat Hansen on 11-29-2023 Lymphocytes Auto (Unsp spec) [#/Vol] 2.25 10*3/uL 0.83-4.51 [facility] Automated lymphocyte count a s percentage of total leukocytesOrdered By: Pat Hansen on 11-29-2023 Lymphocytes/100 WBC Auto (Unsp spec) 28.5 % 19-41 [facility] Basophil percentageOrdered B y: Pat Hansen on 11-29-2023 Basophils/100 WBC (Bld) 0.8 % 0-1 [facility] Chloride [Moles/Vol] 109 mmol/L 98-107 [facility] Eosinophils/100 WBC (Bld) 4.9 % 0-5 [facility] Glucose [Mass/Vol] 110 mg/dL 74-106 [facility] Comment on above: Fasting Glucose resu lt from 100 to 125 mg/dL suggests IMPAIRED HOMEOSTASIS per A.D.A. criteria. Hemoglobin (Bld) [Mass/Vol] 13.3 g/dL 12.0-15.0 [facility] Monocytes/100 WBC (Bld) 7.6 % 0-10 [facility] Neutrophils (Bld) [#/Vol] 4.6 10*3/uL 2.0-7.7 [facility] Neutrophils/100 WBC (Bld) 57.8 % 47-70 [facility] Potassium [Moles/Vol] 3.6 mmol/L 3.5-5.1 [facility] Sodium [Moles/Vol] 141 mmol/L 136-145 [facility] WBC (Bld) [#/Vol] 7.9 10*3/uL 4.4-11.0 [facility] Determination of erythrocyte mean corpuscular volume (MCV)Ordered By: Pat Hansen on 11-29-2023 MCV (RBC) [Entitic vol] 90.6 fL 81-99 [facility] Erythrocyte distribution wid th ratioOrdered By: Pat Hansen on 11-29-2023 Erythrocyte distribution width (RBC) [Ratio] 13.6 % 11.6-14.6 [facility] Erythrocyte distribution wid th standard deviationOrdered By: Pat Hansen on 11-29-2023 Erythrocyte distribution width (RBC) [Entitic vol] 45.4 fL 35.1-43.9 [facility] Hematocrit Auto (Bld) [Volum e fraction]Ordered By: Pat Hansen on 11-29-2023 Hematocrit (Bld) [Volume fraction] 43.4 % 37-47 [facility] Immature granulocytes/100 WB C Auto (Bld)Ordered By: Pat Hansen on 11-29-2023 Immature granulocytes/100 WBC (Bld) 0.400 % 0.0-0.9 [facility] Comment on above: IG% - Immature Granu locytes (promyelocytes, myelocytes and metamyelocytes) > 1% indicates that a LEFT SHIFT is Present. Laboratory - Chemistry and C hemistry - challengeOrdered By: Pat Hansen on 11-29-2023 CO2 [Moles/Vol] 28.0 mmol/L 21.0-32.0 [facility] Natriuretic peptide B (Bld) [Mass/Vol] 27.3 pg/mL 0-100 [facility] Urea nitrogen/Creatinine [Mass ratio] 7.8 mg/mg 10-20 [facility] Laboratory - Hematology and Cell countsOrdered By: Pat Hansen on 11-29-2023 MCH (RBC) [Entitic mass] 27.8 pg 27.0-32.0 [facility] MCHC (RBC) [Mass/Vol] 30.6 g/dL 32-36 [facility] Nucleated RBC/100 WBC (Bld) [Ratio] 0 % 0-5 [facility] Platelet mean volume (Bld) [Entitic vol] 10.3 fL 6.2-12.0 [facility] Platelets (Bld) [#/Vol] 246 10*3/uL 150-450 [facility] No Panel InformationOrdered By: Pat Hansen on 11-29-2023 Estimated GFR (MDRD) Amer 92 mL/min >60 [facility] Comment on above: GFR Calc Estimated GFR (MDRD) Non-Af Amer 76 mL/min >60 [facility] Comment on above: Non- GFR Calc RBC Auto (Bld) [#/Vol]Ordere d By: Pat Hansen on 11-29-2023 RBC (Bld) [#/Vol] 4.79 10*6/uL 4.2-5.[address] [facility] Serum or plasma calcium miguel angel urement (mass/volume)Ordered By: Pat Hansen on 11-29-2023 Calcium [Mass/Vol] 9.0 mg/dL 8.5-10.1 [facility] Serum or plasma creatinine m easurement (mass/volume)Ordered By: Pat Hansen on 11-29-2023 Creatinine [Mass/Vol] 0.76 mg/dL 0.55-1.02 [facility] Comment on above: The validity of the calculated GFR & GFRAA in patients over 70 years has not been determined. Clinical correlation is essential. Serum or plasma urea nitroge n measurement (mass/volume)Ordered By: Pat Hansen on 11-29-2023 Urea nitrogen [Mass/Vol] 6 mg/dL 7- [facility] Thin prep Papanicolaou smear with manual screeningOrdered By: Pat Hansen on 11-29-2023 Thin prep Papanicolaou smear with manual screening 4 5- [facility] 3D MAMM BILAT DIAGNOSTICon 0 11-21-2023 3D MAMM BILAT DIAGNOSTIC [facility] [address] [address] Patient: BRANDIE KISER Phone#: : [phone] Age: 88 Gender: F Pt. Type: Out Account: [id number] Location: [facility] Ordering: TOSHA XAVIER Exam Date: 11/21/2023/10:11 Family Phys: Charge Code: [id number] Physician: Murray Order #: [id number] Dose#: PROCEDURE: BILATERAL DIAGNOSTIC BREAST TOMOSYNTHESIS MAMMOGRAM WITH CAD COMPARISON: [facility], , 3D BILAT DIAGNOSTIC, 02/04/2023, 10:01. INDICATIONS: Breast [...] Guerra MD on 11/21/2023 at 13:38 Normal [facility] US BREAST LT UNILATERAL COMP Pat 11-21-2023 US BREAST LT UNILATERAL COMPLETE [id number] [place] [id number] Patient: BRANDIE KISER Phone#: : [phone] Age: 88 Gender: F Pt. Type: Out Account: [id number] Location: 010 Ordering: TOSHA XAVIER Exam Date: 11/21/2023/12:03 Family Phys: Charge Code: [id number] Physician: Murray Order #: [id number] Dose#: PROCEDURE: ULTRASOUND BREAST LT COMPARISON: [facility], , BREAST LT COMPLETE, 02/04/2023, 11:15. [...] Guerra MD on 11/21/2023 at 13:41 Normal [facility] Absolute lymphocyte countOrd ered By: Pat Hansen on 09-09-2023 Lymphocytes Auto (Unsp spec) [#/Vol] 2.46 10*3/uL 0.83-4.51 [facility] Automated lymphocyte count a s percentage of total leukocytesOrdered By: Pat Hansen on 09-09-2023 Lymphocytes/100 WBC Auto (Unsp spec) 31.4 % 19-41 [facility] Basophil percentageOrdered B y: Pat Hansen on 09-09-2023 Basophils/100 WBC (Bld) 0.8 % 0-1 [facility] Chloride [Moles/Vol] 108 mmol/L 98-107 [facility] Eosinophils/100 WBC (Bld) 1.9 % 0-5 [facility] Glucose [Mass/Vol] 101 mg/dL 74-106 [facility] Comment on above: Fasting Glucose resu lt from 100 to 125 mg/dL suggests IMPAIRED HOMEOSTASIS per A.D.A. criteria. Hemoglobin (Bld) [Mass/Vol] 14.6 g/dL 12.0-15.0 [facility] Monocytes/100 WBC (Bld) 8.7 % 0-10 [facility] Neutrophils (Bld) [#/Vol] 4.4 10*3/uL 2.0-7.7 [facility] Neutrophils/100 WBC (Bld) 56.6 % 47-70 [facility] Potassium [Moles/Vol] 4.0 mmol/L 3.5-5.1 [facility] Sodium [Moles/Vol] 142 mmol/L 136-145 [facility] WBC (Bld) [#/Vol] 7.8 10*3/uL 4.4-11.0 [facility] Determination of erythrocyte mean corpuscular volume (MCV)Ordered By: Pat Hansen on 09-09-2023 MCV (RBC) [Entitic vol] 86.7 fL 81-99 [facility] Erythrocyte distribution wid th ratioOrdered By: Pat Hansen on 09-09-2023 Erythrocyte distribution width (RBC) [Ratio] 15.0 % 11.6-14.6 [facility] Erythrocyte distribution wid th standard deviationOrdered By: Pat Hansen on 09-09-2023 Erythrocyte distribution width (RBC) [Entitic vol] 47.8 fL 35.1-43.9 [facility] Hematocrit Auto (Bld) [Volum e fraction]Ordered By: Pat Hansen on 09-09-2023 Hematocrit (Bld) [Volume fraction] 47.5 % 37-47 [facility] Immature granulocytes/100 WB C Auto (Bld)Ordered By: Pat Hansen on 09-09-2023 Immature granulocytes/100 WBC (Bld) 0.600 % 0.0-0.9 [facility] Comment on above: IG% - Immature Granu locytes (promyelocytes, myelocytes and metamyelocytes) > 1% indicates that a LEFT SHIFT is Present. Laboratory - Chemistry and C hemistry - challengeOrdered By: Pat Hansen on 09-09-2023 CO2 [Moles/Vol] 29.0 mmol/L 21.0-32.0 [facility] Natriuretic peptide B (Bld) [Mass/Vol] 32.3 pg/mL 0-100 [facility] Urea nitrogen/Creatinine [Mass ratio] 11.0 mg/mg 10-20 [facility] Laboratory - Hematology and Cell countsOrdered By: Pat Hansen on 09-09-2023 MCH (RBC) [Entitic mass] 26.6 pg 27.0-32.0 [facility] MCHC (RBC) [Mass/Vol] 30.7 g/dL 32-36 [facility] Nucleated RBC/100 WBC (Bld) [Ratio] 0 % 0-5 [facility] Platelet mean volume (Bld) [Entitic vol] 9.5 fL 6.2-12.0 [facility] Platelets (Bld) [#/Vol] 192 10*3/uL 150-450 [facility] No Panel InformationOrdered By: Pat Hansen on 09-09-2023 Estimated GFR (MDRD) Amer 97 mL/min >60 [facility] Comment on above: GFR Calc Estimated GFR (MDRD) Non-Af Amer 80 mL/min >60 [facility] Comment on above: Non- GFR Calc Free Triiodothyronine (T3) pg/dL 2.2 pg/mL 2.18-3.98 [facility] Vitamin D 25-Hydroxy 54.9 ng/mL [facility] Comment on above: Vitamin D 25(OH) Sta tus Range Deficiency <20 ng/mL (50nmol/L) Insufficiency 20 - 30 ng/mL (50 - 75 nmol/L) Sufficiency 30 - 100 ng/mL (75 - 250 nmol/L) Toxicity >100 ng/mL (>250 nmol/L) RBC Auto (Bld) [#/Vol]Ordere d By: Pat Hansen on 09-09-2023 RBC (Bld) [#/Vol] 5.48 10*6/uL 4.2-5.[address] [facility] Serum or plasma calcium miguel angel urement (mass/volume)Ordered By: Pat Hansen on 09-09-2023 Calcium [Mass/Vol] 9.1 mg/dL 8.5-10.1 [facility] Serum or plasma creatinine m easurement (mass/volume)Ordered By: Pat Hansen on 09-09-2023 Creatinine [Mass/Vol] 0.73 mg/dL 0.55-1.02 [facility] Comment on above: The validity of the calculated GFR & GFRAA in patients over 70 years has not been determined. Clinical correlation is essential. Serum or plasma thyroid stim ulating hormone (TSH) measurement (units/volume)Ordered By: Pat Hansen on 09-09-2023 TSH Qn 1.76 uIU/mL 0.358-3.74 [facility] Serum or plasma urea nitroge n measurement (mass/volume)Ordered By: Pat Hansen on 09-09-2023 Urea nitrogen [Mass/Vol] 8 mg/dL 7-18 [facility] Thin prep Papanicolaou smear with manual screeningOrdered By: Pat Hansen on 09-09-2023 Thin prep Papanicolaou smear with manual screening 5 5-15 [facility] Thin prep Papanicolaou smear with manual screening 0.99 ng/dL 0.76-1.46 [facility] Absolute lymphocyte countOrd ered By: Adriana Dee on 2023 Lymphocytes Auto (Unsp spec) [#/Vol] 3.05 10*3/uL 0.83-4.51 [facility] Automated lymphocyte count a s percentage of total leukocytesOrdered By: Adriana Dee on 2023 Lymphocytes/100 WBC Auto (Unsp spec) 26.1 % 19-41 [facility] Basophil percentageOrdered B y: Adriana Dee on 2023 Basophils/100 WBC (Bld) 0.3 % 0-1 [facility] Chloride [Moles/Vol] 106 mmol/L 98-107 [facility] Eosinophils/100 WBC (Bld) 0.9 % 0-5 [facility] Glucose [Mass/Vol] 102 mg/dL 74-106 [facility] Comment on above: Fasting Glucose resu lt from 100 to 125 mg/dL suggests IMPAIRED HOMEOSTASIS per A.D.A. criteria. Hemoglobin (Bld) [Mass/Vol] 15.1 g/dL 12.0-15.0 [facility] Monocytes/100 WBC (Bld) 6.7 % 0-10 [facility] Neutrophils (Bld) [#/Vol] 7.6 10*3/uL 2.0-7.7 [facility] Neutrophils/100 WBC (Bld) 65.0 % 47-70 [facility] Potassium [Moles/Vol] 3.8 mmol/L 3.5-5.1 [facility] Sodium [Moles/Vol] 139 mmol/L 136-145 [facility] WBC (Bld) [#/Vol] 11.7 10*3/uL 4.4-11.0 [facility] Determination of erythrocyte mean corpuscular volume (MCV)Ordered By: Adriana Dee on 2023 MCV (RBC) [Entitic vol] 86.5 fL 81-99 [facility] Erythrocyte distribution wid th ratioOrdered By: Adriana Dee on 2023 Erythrocyte distribution width (RBC) [Ratio] 14.3 % 11.6-14.6 [facility] Erythrocyte distribution wid th standard deviationOrdered By: Adriana Dee on 2023 Erythrocyte distribution width (RBC) [Entitic vol] 45.5 fL 35.1-43.9 [facility] Hematocrit Auto (Bld) [Volum e fraction]Ordered By: Adriana Dee on 2023 Hematocrit (Bld) [Volume fraction] 48.7 % 37-47 [facility] Immature granulocytes/100 WB C Auto (Bld)Ordered By: Adriana Dee on 2023 Immature granulocytes/100 WBC (Bld) 1.000 % 0.0-0.9 [facility] Comment on above: IG% - Immature Granu locytes (promyelocytes, myelocytes and metamyelocytes) > 1% indicates that a LEFT SHIFT is Present. Laboratory - Chemistry and C hemistry - challengeOrdered By: Adriana Dee on 2023 CO2 [Moles/Vol] 28.0 mmol/L 21.0-32.0 [facility] Urea nitrogen/Creatinine [Mass ratio] 18.8 mg/mg 05-17 [facility] Laboratory - Hematology and Cell countsOrdered By: Adriana Dee on 2023 MCH (RBC) [Entitic mass] 26.8 pg 27.0-32.0 [facility] MCHC (RBC) [Mass/Vol] 31.0 g/dL 32-36 [facility] Nucleated RBC/100 WBC (Bld) [Ratio] 0 % 0-5 [facility] Platelets (Bld) [#/Vol] 193 10*3/uL 150-450 [facility] No Panel InformationOrdered By: Adriana Dee on 2023 Estimated Creatinine Clearance Calc 44.20 ml/min [facility] Estimated GFR (MDRD) Amer 88 mL/min >60 [facility] Comment on above: GFR Calc Estimated GFR (MDRD) Non-Af Amer 72 mL/min >60 [facility] Comment on above: Non- GFR Calc Platelet mean volume Gilbert-Ec ker (Bld) [Entitic vol]Ordered By: Adriana Dee on 2023 Platelet mean volume (Bld) [Entitic vol] 9.6 fL 6.2-12.0 [facility] RBC Auto (Bld) [#/Vol]Ordere d By: Adriana Dee on 2023 RBC (Bld) [#/Vol] 5.63 10*6/uL 4.2-5.[address] [facility] Serum or plasma calcium miguel angel urement (mass/volume)Ordered By: Adriana Dee on 2023 Calcium [Mass/Vol] 8.7 mg/dL 8.5-10.1 [facility] Serum or plasma cardiac trop onin I panel by high sensitivity methodOrdered By: Adriana Dee on 2023 Tropinin I.cardiac panel High sensitivity method 8 pg/mL 3.0-54.0 [facility] Comment on above: Please Note: New Randi t Units and Gender Specific Reference Ranges. For more information see Policy Stat Procedure [place] High Sensitivity Troponin (TNIH) and attachments. Serum or plasma creatinine m easurement (mass/volume)Ordered By: Adriana Dee on 2023 Creatinine [Mass/Vol] 0.80 mg/dL 0.55-1.02 [facility] Comment on above: The validity of the calculated GFR & GFRAA in patients over 70 years has not been determined. Clinical correlation is essential. Serum or plasma urea nitroge n measurement (mass/volume)Ordered By: Adriana Dee on 2023 Urea nitrogen [Mass/Vol] 15 mg/dL 7-18 [facility] Thin prep Papanicolaou smear with manual screeningOrdered By: Adriana Dee on 2023 Thin prep Papanicolaou smear with manual screening 5 5-15 [facility] Absolute lymphocyte countOrd ered By: Rolanda Pavon on 08-12-2023 Lymphocytes Auto (Unsp spec) [#/Vol] 2.01 10*3/uL 0.83-4.51 [facility] Basophil percentageOrdered B y: Rolanda Pavon on 08-12-2023 Basophils/100 WBC (Bld) 0.3 % 0-1 [facility] Chloride [Moles/Vol] 106 mmol/L 98-107 [facility] Eosinophils/100 WBC (Bld) 0.1 % 0-5 [facility] Glucose [Mass/Vol] 107 mg/dL 74-106 [facility] Comment on above: Fasting Glucose resu lt from 100 to 125 mg/dL suggests IMPAIRED HOMEOSTASIS per A.D.A. criteria. Neutrophils (Bld) [#/Vol] 8.7 10*3/uL 2.0-7.7 [facility] Neutrophils/100 WBC (Bld) 76.6 % 47-70 [facility] Potassium [Moles/Vol] 4.1 mmol/L 3.5-5.1 [facility] Sodium [Moles/Vol] 140 mmol/L 136-145 [facility] WBC (Bld) [#/Vol] 11.4 10*3/uL 4.4-11.[address] [facility] Blood erythrocytes count (nu mber/volume)Ordered By: Rolanda Pavon on 08-12-2023 RBC (Bld) [#/Vol] 5.67 10*6/uL 4.2-5.[address] [facility] Blood hemoglobin measurement (mass/volume)Ordered By: Rolanda Pavon on 08-12-2023 Hemoglobin (Bld) [Mass/Vol] 15.3 g/dL 12.0-15.0 [facility] Blood lymphocytes/100 leukoc ytesOrdered By: Rolanda Pavon on 08-12-2023 Lymphocytes/100 WBC (Bld) 17.7 % 19-41 [facility] Blood monocytes/100 leukocyt esOrdered By: Rolanda Pavon on 08-12-2023 Monocytes/100 WBC (Bld) 4.8 % 0-10 [facility] Blood platelet mean volumeOr dered By: Rolanda Pavon on 08-12-2023 Platelet mean volume (Bld) [Entitic vol] 9.8 fL 6.2-12.0 [facility] Determination of erythrocyte mean corpuscular volume (MCV)Ordered By: Rolanda Pavon on 08-12-2023 MCV (RBC) [Entitic vol] 84.8 fL 81-99 [facility] Hematocrit Auto (Bld) [Volum e fraction]Ordered By: Rolanda Pavon on 08-12-2023 Hematocrit (Bld) [Volume fraction] 48.1 % 37-47 [facility] - Chemistry and C hemistry - challengeOrdered By: Rolanda Pavon on 08-12-2023 CO2 [Moles/Vol] 27.0 mmol/L 21.0-32.0 [facility] Urea nitrogen/Creatinine [Mass ratio] 16.0 mg/mg 10-20 [facility] - Hematology and Cell countsOrdered By: Rolanda Pavon on 08-12-2023 Erythrocyte distribution width (RBC) [Entitic vol] 43.1 fL 35.1-43.9 [facility] Erythrocyte distribution width (RBC) [Ratio] 13.9 % 11.6-14.6 [facility] Immature granulocytes/100 WBC (Bld) 0.500 % 0.0-0.9 [facility] Comment on above: IG% - Immature Granu locytes (promyelocytes, myelocytes and metamyelocytes) > 1% indicates that a LEFT SHIFT is Present. MCH (RBC) [Entitic mass] 27.0 pg 27.0-32.0 [facility] Nucleated RBC/100 WBC (Bld) [Ratio] 0 % 0-5 [facility] MCHC Auto (RBC) [Mass/Vol]Or dered By: Rolanda Pavon on 08-12-2023 MCHC (RBC) [Mass/Vol] 31.8 g/dL 32-36 [facility] No Panel InformationOrdered By: Rolanda Pavon on 08-12-2023 Troponin I High Sensitivity 6 pg/mL 3.0-54.0 [facility] Comment on above: Please Note: New Randi t Units and Gender Specific Reference Ranges. For more information see Policy Stat Procedure [place] High Sensitivity Troponin (TNIH) and attachments. D-Dimer Quantitative (PE/DVT) 0.61 FEU/ug/m 0.27-0.49 [facility] Comment on above: D-Dimer ELEVATED (>0 .49): Additional studies and clinicalassessments are indicated to conclude diagnosis of:Deep Vein Thrombosis (DVT) or Pulmonary Embolism (PE)CRITICAL VALUE VERIFIED. CALLED TO [employer]08/12/23 Selina Fragoso.RESULTS READ BACK BY SAME . Estimated Creatinine Clearance Calc 43.89 ml/min [facility] Estimated GFR (MDRD) Amer 104 mL/min >60 [facility] Comment on above: GFR Calc Estimated GFR (MDRD) Non-Af Amer 86 mL/min >60 [facility] Comment on above: Non- GFR Calc Platelets bldOrdered By: Rebecca Pavon on 08-12-2023 Platelets (Bld) [#/Vol] 211 10*3/uL 150-450 [facility] Serum or plasma calcium migule angel urement (mass/volume)Ordered By: Rolanda Pavon on 08-12-2023 Calcium [Mass/Vol] 9.1 mg/dL 8.5-10.1 [facility] Serum or plasma creatinine m easurement (mass/volume)Ordered By: Rolanda Pavon on 08-12-2023 Creatinine [Mass/Vol] 0.69 mg/dL 0.55-1.02 [facility] Comment on above: The validity of the calculated GFR & GFRAA in patients over 70 years has not been determined. Clinical correlation is essential. Serum or plasma urea nitroge n measurement (mass/volume)Ordered By: Rolanda Pavon on 08-12-2023 Urea nitrogen [Mass/Vol] 11 mg/dL 7-18 [facility] Thin prep Papanicolaou smear with manual screeningOrdered By: Rolanda Pavon on 08-12-2023 Thin prep Papanicolaou smear with manual screening 7 -15 [facility] Absolute lymphocyte countOrd ered By: Olinda Kramer on 04-08-2023 Lymphocytes Auto (Unsp spec) [#/Vol] 2.33 10*3/uL 0.83-4.51 [facility] Basophil percentageOrdered B y: Olinda Kramer on 04-08-2023 Basophils/100 WBC (Bld) 0.2 % 0-1 [facility] Chloride [Moles/Vol] 108 mmol/L 98-107 [facility] Eosinophils/100 WBC (Bld) 1.5 % 0-5 [facility] Glucose [Mass/Vol] 98 mg/dL 74-106 [facility] Neutrophils (Bld) [#/Vol] 6.4 10*3/uL 2.0-7.7 [facility] Neutrophils/100 WBC (Bld) 68.0 % 47-70 [facility] Potassium [Moles/Vol] 4.0 mmol/L 3.5-5.1 [facility] Sodium [Moles/Vol] 139 mmol/L 136-145 [facility] WBC (Bld) [#/Vol] 9.4 10*3/uL 4.4-11.0 [facility] Blood erythrocytes count (nu mber/volume)Ordered By: Olinda Kramer on 04-08-2023 RBC (Bld) [#/Vol] 4.67 10*6/uL 4.2-5.[address] [facility] Blood hemoglobin measurement (mass/volume)Ordered By: Olinda Kramer on 04-08-2023 Hemoglobin (Bld) [Mass/Vol] 12.9 g/dL 12.0-15.0 [facility] Blood lymphocytes/100 leukoc ytesOrdered By: Olinda Kramer on 04-08-2023 Lymphocytes/100 WBC (Bld) 24.9 % 19-41 [facility] Blood monocytes/100 leukocyt esOrdered By: Olinda Kramer on 04-08-2023 Monocytes/100 WBC (Bld) 4.7 % 0-10 [facility] Blood platelet mean volumeOr dered By: Olinda Kramer on 04-08-2023 Platelet mean volume (Bld) [Entitic vol] 9.5 fL 6.2-12.0 [facility] Determination of erythrocyte mean corpuscular volume (MCV)Ordered By: Olinda Kramer on 04-08-2023 MCV (RBC) [Entitic vol] 87.6 fL 81-99 [facility] Hematocrit Auto (Bld) [Volum e fraction]Ordered By: Olinda Kramer on 04-08-2023 Hematocrit (Bld) [Volume fraction] 40.9 % 37-47 [facility] INR in Blood by Coagulation assayOrdered By: Olinda Kramer on 04-08-2023 INR Coag (Bld) [Relative time] 1.0 {INR} [facility] - Chemistry and C hemistry - challengeOrdered By: Olinda Kramer on 04-08-2023 CO2 [Moles/Vol] 25.0 mmol/L 21.0-32.0 [facility] Urea nitrogen/Creatinine [Mass ratio] 13.7 mg/mg 10-20 [facility] - CoagulationOrde red By: Olinda Kramer on 04-08-2023 aPTT Coag (Bld) [Time] 26.3 s 24.1-36.2 [facility] PT Coag (PPP) [Time] 13.0 s 11.7-14.9 [facility] - Hematology and Cell countsOrdered By: Olinda Kramer on 04-08-2023 Erythrocyte distribution width (RBC) [Entitic vol] 43.8 fL 35.1-43.9 [facility] Erythrocyte distribution width (RBC) [Ratio] 13.6 % 11.6-14.6 [facility] Immature granulocytes/100 WBC (Bld) 0.700 % 0.0-0.9 [facility] Comment on above: IG% - Immature Granu locytes (promyelocytes, myelocytes and metamyelocytes) > 1% indicates that a LEFT SHIFT is Present. MCH (RBC) [Entitic mass] 27.6 pg 27.0-32.0 [facility] Nucleated RBC/100 WBC (Bld) [Ratio] 0 % 0-5 [facility] MCHC Auto (RBC) [Mass/Vol]Or dered By: Olinda Kramer on 04-08-2023 MCHC (RBC) [Mass/Vol] 31.5 g/dL 32-36 [facility] No Panel InformationOrdered By: Olinda Kramer on 04-08-2023 Estimated Creatinine Clearance Calc 32.53 ml/min [facility] Estimated GFR (MDRD) Amer 97 mL/min >60 [facility] Comment on above: GFR Calc Estimated GFR (MDRD) Non-Af Amer 81 mL/min >60 [facility] Comment on above: Non- GFR Calc Platelets bldOrdered By: Swati Kramer on 04-08-2023 Platelets (Bld) [#/Vol] 241 10*3/uL 150-450 [facility] Serum or plasma calcium miguel angel urement (mass/volume)Ordered By: Olinda Kramer on 04-08-2023 Calcium [Mass/Vol] 8.6 mg/dL 8.5-10.1 [facility] Serum or plasma creatinine m easurement (mass/volume)Ordered By: Olinda Kramer on 04-08-2023 Creatinine [Mass/Vol] 0.73 mg/dL 0.55-1.02 [facility] Comment on above: The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 Hematology and Cell countson 05-05-2022 Erythrocyte distribution width (RBC) [Entitic vol] 46.6 fL 35.1-43.9 [facility] Work Phone: Erythrocyte distribution width (RBC) [Ratio] 14.5 % 11.6-14.6 [facility] Work Phone: Immature granulocytes/100 WBC (Bld) 0.400 % 0.0-0.9 [facility] Work Phone: Comment on above: IG% - Immature Granu locytes (promyelocytes, myelocytes and metamyelocytes) > 1% indicates that a LEFT SHIFT is Present. MCH (RBC) [Entitic mass] 27.6 pg 27.0-32.0 [facility] Work Phone: Nucleated RBC/100 WBC (Bld) [Ratio] 0 % 0-5 [facility] Work Phone: MCHC Auto (RBC) [Mass/Vol]on 05-05-2022 MCHC (RBC) [Mass/Vol] 31.3 g/dL 32-36 [facility] Work Phone: No Panel Informationon 05-05 Estimated Creatinine Clearance Calc 33.12 ml/min [facility] Work Phone: Estimated GFR (MDRD) Amer 89 mL/min >60 [facility] Work Phone: Comment on above: GFR Calc Estimated GFR (MDRD) Non-Af Amer 74 mL/min >60 [facility] Work Phone: Comment on above: Non- GFR Calc Platelets bldon 05-05-2022 Platelets (Bld) [#/Vol] 227 10*3/uL 150-450 [facility] Work Phone: Serum or plasma albumin miguel angel urement (mass/volume)on 05-05-2022 Albumin [Mass/Vol] 3.6 g/dL 3.2-5.0 [facility] Work Phone: Serum or plasma albumin/glob ulin mass ratioon 05-05-2022 Albumin/Globulin [Mass ratio] 1.1 {ratio} 0.9-2.4 [facility] Work Phone: Serum or plasma calcium miguel angel urement (mass/volume)on 05-05-2022 Calcium [Mass/Vol] 9.0 mg/dL 8.5-10.1 [facility] Work Phone: Serum or plasma creatinine m easurement (mass/volume)on 05-05-2022 Creatinine [Mass/Vol] 0.79 mg/dL 0.55-1.02 [facility] Work Phone: Comment on above: The validity of the calculated GFR & GFRAA in patients over 70 years has not been determined. Clinical correlation is essential. Serum or plasma urea nitroge n measurement (mass/volume)on 05-05-2022 Urea nitrogen [Mass/Vol] 11 mg/dL 7-18 [facility] Work Phone: Thin prep Papanicolaou smear with manual screeningon 05-05-2022 Thin prep Papanicolaou smear with manual screening 23 U/L 15-37 [facility] Work Phone: Thin prep Papanicolaou smear with manual screening 6 5-15 [facility] Work Phone: CBC with Differentialon 09-0 Absolute Immature Granulocytes 0.0 0 10 3/uL [facility] Absolute Lymph 1.[address] [facility] Absolute [place] 0.[address] [facility] Basophils (Bld) [#/Vol] 0.1 10*3/uL [facility] Basophils/100 WBC (Bld) 0.8 % [facility] Eosinophils (Bld) [#/Vol] 0.3 10*3/uL [facility] Eosinophils/100 WBC (Bld) 3.9 % [facility] Erythrocyte distribution width (RBC) [Ratio] 14.5 % 11.5 - 14.5 % [facility] Hematocrit (Bld) [Volume fraction] 46.0 % 33.6 - 46.8 % [facility] Hemoglobin (Bld) [Mass/Vol] 14.4 g/dL 11.7 - 15.8 g/dL [facility] Immature granulocytes/100 WBC (Bld) 0.6 % [facility] Lymphocytes/100 WBC (Bld) 25.9 % [facility] MCH (RBC) [Entitic mass] 27.8 pg 27.5 - 32.[address] [facility] MCHC (RBC) [Mass/Vol] 31.3 g/dL 30.7 - 35.5 g/dl [facility] MCV (RBC) [Entitic vol] 88.8 fL 80.2 - 99.[address] [facility] Monocytes/100 WBC (Bld) 8.5 % [facility] Neutrophils (Bld) [#/Vol] 3.8 10*3/uL [facility] Neutrophils/100 WBC (Bld) 60.3 % [facility] Platelets (Bld) [#/Vol] 237.0 10*3/uL [facility] RBC (Bld) [#/Vol] 5.18 10*6/uL [facility] WBC LM Ql (Sput) 6.4 [facility] No Panel Informationon 04-05 nRBC 0 0 - [address] [facility] Absolute lymphocyte counton 02-08-2022 Lymphocytes Auto (Unsp spec) [#/Vol] 2.44 10*3/uL 0.83-4.51 [facility] Work Phone: Basophil percentageon 2021 Basophils/100 WBC (Bld) 0.4 % 0-1 [facility] Work Phone: Chloride [Moles/Vol] 109 mmol/L 98-107 [facility]: Eosinophils/100 WBC (Bld) 3.8 % 0-5 [facility] Work Phone: Glucose [Mass/Vol] 103 mg/dL 74-106 [facility] Work Phone: Comment on above: Fasting Glucose resu lt from 100 to 125 mg/dL suggests IMPAIRED HOMEOSTASIS per A.D.A. criteria. Neutrophils (Bld) [#/Vol] 5.3 10*3/uL 2.0-7.7 [facility] Work Phone: Neutrophils/100 WBC (Bld) 59.4 % 47-70 [facility] Work Phone: Potassium [Moles/Vol] 4.0 mmol/L 3.5-5.1 [facility] Work Phone: Sodium [Moles/Vol] 141 mmol/L 136-145 [facility] Work Phone: WBC (Bld) [#/Vol] 9.0 10*3/uL 4.4-11.0 [facility] Work Phone: Blood erythrocytes count (nu mber/volume)on 02-08-2022 RBC (Bld) [#/Vol] 5.43 10*6/uL 4.2-5.4 [facility] Work Phone: Blood hemoglobin measurement (mass/volume)on 02-08-2022 Hemoglobin (Bld) [Mass/Vol] 15.0 g/dL 12.0-15.0 [facility] Work Phone: Blood lymphocytes/100 leukoc yteson 02-08-2022 Lymphocytes/100 WBC (Bld) 27.3 % 19-41 [facility] Work Phone: Blood monocytes/100 leukocyt eson 02-08-2022 Monocytes/100 WBC (Bld) 8.4 % 0-10 [facility] Work Phone: Blood platelet mean volumeon 02-08-2022 Platelet mean volume (Bld) [Entitic vol] 9.6 fL 6.2-12.0 [facility] Work Phone: Determination of erythrocyte mean corpuscular volume (MCV)on 02-08-2022 MCV (RBC) [Entitic vol] 88.0 fL 81-99 [facility] Work Phone: Hematocrit Auto (Bld) [Volum e fraction]on 02-08-2022 Hematocrit (Bld) [Volume fraction] 47.8 % 37-47 [facility] Work Phone: Laboratory - Chemistry and C hemistry - challengeon 02-08-2022 CO2 [Moles/Vol] 28.0 mmol/L 21.0-32.0 [facility] Work Phone: Urea nitrogen/Creatinine [Mass ratio] 8.3 mg/mg 10-20 [facility] Work Phone: Laboratory - Hematology and Cell countson 02-08-2022 Erythrocyte distribution width (RBC) [Entitic vol] 44.1 fL 35.1-43.9 [facility] Work Phone: Erythrocyte distribution width (RBC) [Ratio] 13.6 % 11.6-14.6 [facility] Work Phone: [phone] Immature granulocytes/100 WBC (Bld) 0.700 % 0.0-0.9 [facility] Work Phone: Comment on above: IG% - Immature Granu locytes (promyelocytes, myelocytes and metamyelocytes) > 1% indicates that a LEFT SHIFT is Present. MCH (RBC) [Entitic mass] 27.6 pg 27.0-32.0 [facility] Work Phone: Nucleated RBC/100 WBC (Bld) [Ratio] 0 % 0-5 [facility] Work Phone: MCHC Auto (RBC) [Mass/Vol]on 02-08-2022 MCHC (RBC) [Mass/Vol] 31.4 g/dL 32-36 [facility] Work Phone: No Panel Informationon 02-08 D-Dimer Quantitative (PE/DVT) 1.02 FEU/ug/m 0.27-0.49 [facility] Work Phone: Comment on above: CRITICAL VALUE VERIF IED. CALLED TO [facility] ED02/08/22 [id number].RESULTS READ BACK BY SAME . D-Dimer ELEVATED (>0.49): Additional studies and clinicalassessments are indicated to conclude diagnosis of:Deep Vein Thrombosis (DVT) or Pulmonary Embolism (PE) Estimated Creatinine Clearance Calc 33.12 ml/min [facility] Work Phone: Estimated GFR (MDRD) Amer 98 mL/min >60 [facility] Work Phone: Comment on above: GFR Calc Estimated GFR (MDRD) Non-Af Amer 81 mL/min >60 [facility] Work Phone: Comment on above: Non- GFR Calc Troponin I High Sensitivity 4 pg/mL 3.0-54.0 [facility] Work Phone: Comment on above: Please Note: New Randi t Units and Gender Specific Reference Ranges. For more information see Policy Stat Procedure [place] High Sensitivity Troponin (TNIH) and attachments. Platelets bldon 02-08-2022 Platelets (Bld) [#/Vol] 231 10*3/uL 150-450 [facility] Work Phone: Serum or plasma calcium miguel angel urement (mass/volume)on 02-08-2022 Calcium [Mass/Vol] 9.1 mg/dL 8.5-10.1 [facility] Work Phone: Serum or plasma creatinine m easurement (mass/volume)on 02-08-2022 Creatinine [Mass/Vol] 0.73 mg/dL 0.55-1.02 [facility] Work Phone: Comment on above: The validity of the calculated GFR & GFRAA in patients over 70 years has not been determined. Clinical correlation is essential. Serum or plasma urea nitroge n measurement (mass/volume)on 02-08-2022 Urea nitrogen [Mass/Vol] 6 mg/dL 02-12 [facility] Work Phone: Thin prep Papanicolaou smear with manual screeningon 02-08-2022 Thin prep Papanicolaou smear with manual screening 12-10 [facility] Work Phone: Blood hemoglobin measurement (mass/volume)on 12-13-2021 Hemoglobin (Bld) [Mass/Vol] 14.4 g/dL 12.0-15.0 [facility] Work Phone: Hematocrit Auto (Bld) [Volum e fraction]on 12-13-2021 Hematocrit (Bld) [Volume fraction] 45.9 % 37-47 [facility] Work Phone: Absolute lymphocyte counton 11-23-2021 Lymphocytes Auto (Unsp spec) [#/Vol] 2.23 10*3/uL 0.83-4.51 [facility] Work Phone: Basophil percentageon 2021 Basophils/100 WBC (Bld) 0.4 % 0-1 [facility] Work Phone: Eosinophils/100 WBC (Bld) 2.4 % 0-5 [facility] Work Phone: Neutrophils (Bld) [#/Vol] 4.9 10*3/uL 2.0-7.7 [facility] Work Phone: Neutrophils/100 WBC (Bld) 62.5 % 47-70 [facility] Work Phone: WBC (Bld) [#/Vol] 7.9 10*3/uL 4.4-11.0 [facility] Work Phone: Blood erythrocytes count (nu mber/volume)on 11-23-2021 RBC (Bld) [#/Vol] 4.83 10*6/uL 4.2-5.[address] [facility] Work Phone: Blood hemoglobin measurement (mass/volume)on 11-23-2021 Hemoglobin (Bld) [Mass/Vol] 13.2 g/dL 12.0-15.0 [facility] Work Phone: Blood lymphocytes/100 leukoc yteson 11-23-2021 Lymphocytes/100 WBC (Bld) 28.4 % 19-41 [facility] Work Phone: Blood monocytes/100 leukocyt eson 11-23-2021 Monocytes/100 WBC (Bld) 5.9 % 0-10 [facility] Work Phone: Blood platelet mean volumeon 11-23-2021 Platelet mean volume (Bld) [Entitic vol] 9.7 fL 6.2-12.0 [facility] Work Phone: Determination of erythrocyte mean corpuscular volume (MCV)on 11-23-2021 MCV (RBC) [Entitic vol] 87.2 fL 81-99 [facility] Work Phone: Hematocrit Auto (Bld) [Volum e fraction]on 11-23-2021 Hematocrit (Bld) [Volume fraction] 42.1 % 37-47 [facility] Work Phone: Laboratory - Hematology and Cell countson 11-23-2021 Erythrocyte distribution width (RBC) [Entitic vol] 44.6 fL 35.1-43.9 [facility] Work Phone: Erythrocyte distribution width (RBC) [Ratio] 14.0 % 11.6-14.6 [facility] Work Phone: Immature granulocytes/100 WBC (Bld) 0.400 % 0.0-0.9 [facility] Work Phone: Comment on above: IG% - Immature Granu locytes (promyelocytes, myelocytes and metamyelocytes) > 1% indicates that a LEFT SHIFT is Present. MCH (RBC) [Entitic mass] 27.3 pg 27.0-32.0 [facility] Work Phone: Nucleated RBC/100 WBC (Bld) [Ratio] 0 % 0-5 [facility] Work Phone: MCHC Auto (RBC) [Mass/Vol]on 11-23-2021 MCHC (RBC) [Mass/Vol] 31.4 g/dL 32-36 [facility] Work Phone: Platelets bldon 11-23-2021 Platelets (Bld) [#/Vol] 191 10*3/uL 150-450 [facility] Work Phone: Basophil percentageon 2021 Chloride [Moles/Vol] 106 mmol/L 98-107 [facility] Work Phone: Glucose [Mass/Vol] 93 mg/dL 74-106 [facility] Work Phone: Potassium [Moles/Vol] 3.8 mmol/L 3.5-5.1 [facility] Work Phone: Sodium [Moles/Vol] 139 mmol/L 136-145 [facility] Work Phone: Laboratory - Chemistry and C hemistry - challengeon 11-22-2021 CO2 [Moles/Vol] 27.0 mmol/L 21.0-32.0 [facility] Work Phone: [phone] Urea nitrogen/Creatinine [Mass ratio] 15.4 mg/mg 10-20 [facility] Work Phone: No Panel Informationon 11-22 Troponin I High Sensitivity < 3 pg/mL 3.0-54.0 [facility] Work Phone: Comment on above: Please Note: New Randi t Units and Gender Specific Reference Ranges. For more information see Policy Stat Procedure [place] High Sensitivity Troponin (TNIH) and attachments. Estimated Creatinine Clearance Calc 33.12 ml/min [facility] Work Phone: Estimated GFR (MDRD) Amer 100 mL/min >60 [facility] Work Phone: Comment on above: GFR Calc Estimated GFR (MDRD) Non-Af Amer 83 mL/min >60 [facility] Work Phone: Comment on above: Non- GFR Calc Serum or plasma calcium miguel angel urement (mass/volume)on 11-22-2021 Calcium [Mass/Vol] 9.7 mg/dL 8.5-10.1 [facility] Work Phone: Serum or plasma creatinine m easurement (mass/volume)on 11-22-2021 Creatinine [Mass/Vol] 0.71 mg/dL 0.55-1.02 [facility] Work Phone: Comment on above: The validity of the calculated GFR & GFRAA in patients over 70 years has not been determined. Clinical correlation is essential. Serum or plasma urea nitroge n measurement (mass/volume)on 11-22-2021 Urea nitrogen [Mass/Vol] 11 mg/dL 7-18 [facility] Work Phone: Thin prep Papanicolaou smear with manual screeningon 11-22-2021 Thin prep Papanicolaou smear with manual screening 6 5-15 [facility] Work Phone: Basophil percentageon 2021 Bilirubin [Mass/Vol] 0.90 mg/dL 0.20-1.00 [facility] Work Phone: Comment on above: For patients on eltr ombopag therapy, use of Dimension [place] TBIL is not recommended. Chloride [Moles/Vol] 108 mmol/L 98-107 [facility] Work Phone: Glucose [Mass/Vol] 104 mg/dL 74-106 [facility] Work Phone: Comment on above: Fasting Glucose resu lt from 100 to 125 mg/dL suggests IMPAIRED HOMEOSTASIS per A.D.A. criteria. Potassium [Moles/Vol] 3.8 mmol/L 3.5-5.1 [facility] Work Phone: Protein [Mass/Vol] 6.1 g/dL 6.4-8.2 [facility] Work Phone: Sodium [Moles/Vol] 140 mmol/L 136-145 [facility] Work Phone: WBC (Bld) [#/Vol] 7.0 10*3/uL 4.4-11.0 [facility] Work Phone: Blood erythrocytes count (nu mber/volume)on 10-31-2021 RBC (Bld) [#/Vol] 5.05 10*6/uL 4.2-5.[address] [facility] Work Phone: Blood hemoglobin measurement (mass/volume)on 10-31-2021 Hemoglobin (Bld) [Mass/Vol] 13.9 g/dL 12.0-15.0 [facility] Work Phone: Blood platelet mean volumeon 10-31-2021 Platelet mean volume (Bld) [Entitic vol] 9.6 fL 6.2-12.0 [facility] Work Phone: Determination of erythrocyte mean corpuscular volume (MCV)on 10-31-2021 MCV (RBC) [Entitic vol] 85.7 fL 81-99 [facility] Work Phone: Hematocrit Auto (Bld) [Volum e fraction]on 10-31-2021 Hematocrit (Bld) [Volume fraction] 43.3 % 37-47 [facility] Work Phone: Laboratory - Chemistry and C hemistry - challengeon 10-31-2021 ALP [Catalytic activity/Vol] 97 U/L 45-117 [facility] Work Phone: ALT [Catalytic activity/Vol] 27 U/L 13-56 [facility] Work Phone: CO2 [Moles/Vol] 26.0 mmol/L 21.0-32.0 [facility] Work Phone: Globulin (S) [Mass/Vol] 3.0 g/dL 2.2-4.2 [facility] Work Phone: Urea nitrogen/Creatinine [Mass ratio] 10.6 mg/mg 10-20 [facility] Work Phone: Laboratory - Hematology and Cell countson 10-31-2021 Erythrocyte distribution width (RBC) [Entitic vol] 44.7 fL 35.1-43.9 [facility] Work Phone: Erythrocyte distribution width (RBC) [Ratio] 14.2 % 11.6-14.6 [facility] Work Phone: MCH (RBC) [Entitic mass] 27.5 pg 27.0-32.0 [facility] Work Phone: MCHC Auto (RBC) [Mass/Vol]on 10-31-2021 MCHC (RBC) [Mass/Vol] 32.1 g/dL 32-36 [facility] Work Phone: No Panel Informationon 10-31 Estimated Creatinine Clearance Calc 38.97 ml/min [facility] Work Phone: Estimated GFR (MDRD) Amer 82 mL/min >60 [facility] Work Phone: Comment on above: GFR Calc Estimated GFR (MDRD) Non-Af Amer 68 mL/min >60 [facility] Work Phone: Comment on above: Non- GFR Calc Platelets bldon 10-31-2021 Platelets (Bld) [#/Vol] 196 10*3/uL 150-450 [facility] Work Phone: Serum or plasma albumin miguel angel urement (mass/volume)on 10-31-2021 Albumin [Mass/Vol] 3.1 g/dL 3.2-5.0 [facility] Work Phone: Serum or plasma albumin/glob ulin mass ratioon 10-31-2021 Albumin/Globulin [Mass ratio] 1.0 {ratio} 0.9-2.4 [facility] Work Phone: Serum or plasma calcium miguel angel urement (mass/volume)on 10-31-2021 Calcium [Mass/Vol] 8.3 mg/dL 8.5-10.1 [facility] Work Phone: Serum or plasma creatinine m easurement (mass/volume)on 10-31-2021 Creatinine [Mass/Vol] 0.85 mg/dL 0.55-1.02 [facility] Work Phone: Comment on above: The validity of the calculated GFR & GFRAA in patients over 70 years has not been determined. Clinical correlation is essential. Serum or plasma urea nitroge n measurement (mass/volume)on 10-31-2021 Urea nitrogen [Mass/Vol] 9 mg/dL 7-18 [facility] Work Phone: Thin prep Papanicolaou smear with manual screeningon 10-31-2021 Thin prep Papanicolaou smear with manual screening 24 U/L 15-37 [facility] Work Phone: Thin prep Papanicolaou smear with manual screening 6 5-15 [facility] Work Phone: Absolute lymphocyte counton 10-06-2021 Lymphocytes Auto (Unsp spec) [#/Vol] 2.75 10*3/uL 0.83-4.51 [facility] Work Phone: Basophil percentageon 2021 Basophils/100 WBC (Bld) 0.6 % 0-1 [facility] Work Phone: Chloride [Moles/Vol] 109 mmol/L 98-107 [facility] Work Phone: [phone] Eosinophils/100 WBC (Bld) 3.4 % 0-5 [facility] Work Phone: Glucose [Mass/Vol] 100 mg/dL 74-106 [facility] Work Phone: Comment on above: Fasting Glucose resu lt from 100 to 125 mg/dL suggests IMPAIRED HOMEOSTASIS per A.D.A. criteria. Neutrophils (Bld) [#/Vol] 4.9 10*3/uL 2.0-7.7 [facility] Work Phone: Neutrophils/100 WBC (Bld) 57.4 % 47-70 [facility] Work Phone: Potassium [Moles/Vol] 3.8 mmol/L 3.5-5.1 [facility] Work Phone: Sodium [Moles/Vol] 140 mmol/L 136-145 [facility] Work Phone: WBC (Bld) [#/Vol] 8.5 10*3/uL 4.4-11.0 [facility] Work Phone: Blood erythrocytes count (nu mber/volume)on 10-06-2021 RBC (Bld) [#/Vol] 5.76 10*6/uL 4.2-5.[address] [facility] Work Phone: Blood hemoglobin measurement (mass/volume)on 10-06-2021 Hemoglobin (Bld) [Mass/Vol] 15.4 g/dL 12.0-15.0 [facility] Work Phone: Blood lymphocytes/100 leukoc yteson 10-06-2021 Lymphocytes/100 WBC (Bld) 32.3 % 19-41 [facility] Work Phone: Blood monocytes/100 leukocyt eson 10-06-2021 Monocytes/100 WBC (Bld) 6.1 % 0-10 [facility] Work Phone: Blood platelet mean volumeon 10-06-2021 Platelet mean volume (Bld) [Entitic vol] 9.8 fL 6.2-12.0 [facility] Work Phone: Determination of erythrocyte mean corpuscular volume (MCV)on 10-06-2021 MCV (RBC) [Entitic vol] 86.5 fL 81-99 [facility] Work Phone: Hematocrit Auto (Bld) [Volum e fraction]on 10-06-2021 Hematocrit (Bld) [Volume fraction] 49.8 % 37-47 [facility] Work Phone: Laboratory - Chemistry and C hemistry - challengeon 10-06-2021 CO2 [Moles/Vol] 29.0 mmol/L 21.0-32.0 [facility] Work Phone: Urea nitrogen/Creatinine [Mass ratio] 10.8 mg/mg 10-20 [facility] Work Phone: Laboratory - Hematology and Cell countson 10-06-2021 Erythrocyte distribution width (RBC) [Entitic vol] 45.3 fL 35.1-43.9 [facility] Work Phone: Erythrocyte distribution width (RBC) [Ratio] 14.3 % 11.6-14.6 [facility] Work Phone: Immature granulocytes/100 WBC (Bld) 0.200 % 0.0-0.9 [facility] Work Phone: Comment on above: IG% - Immature Granu locytes (promyelocytes, myelocytes and metamyelocytes) > 1% indicates that a LEFT SHIFT is Present. MCH (RBC) [Entitic mass] 26.7 pg 27.0-32.0 [facility] Work Phone: Nucleated RBC/100 WBC (Bld) [Ratio] 0 % 0-5 [facility] Work Phone: MCHC Auto (RBC) [Mass/Vol]on 10-06-2021 MCHC (RBC) [Mass/Vol] 30.9 g/dL 32-36 [facility] Work Phone: No Panel Informationon 10-06 Estimated GFR (MDRD) Amer 84 mL/min >60 [facility] Work Phone: Comment on above: GFR Calc Estimated GFR (MDRD) Non-Af Amer 69 mL/min >60 [facility] Work Phone: Comment on above: Non- GFR Calc Thyroid Stimulating Hormone (TSH) 2.13 uIU/mL 0.358-3.74 [facility] Work Phone: Platelets bldon 10-06-2021 Platelets (Bld) [#/Vol] 253 10*3/uL 150-450 [facility] Work Phone: Serum or plasma calcium miguel angel urement (mass/volume)on 10-06-2021 Calcium [Mass/Vol] 9.3 mg/dL 8.5-10.1 [facility] Work Phone: Serum or plasma creatinine m easurement (mass/volume)on 10-06-2021 Creatinine [Mass/Vol] 0.83 mg/dL 0.55-1.02 [facility] Work Phone: Comment on above: The validity of the calculated GFR & GFRAA in patients over 70 years has not been determined. Clinical correlation is essential. Serum or plasma urea nitroge n measurement (mass/volume)on 10-06-2021 Urea nitrogen [Mass/Vol] 9 mg/dL 7-18 [facility] Work Phone: Thin prep Papanicolaou smear with manual screeningon 10-06-2021 Thin prep Papanicolaou smear with manual screening 2 5-15 [facility] Work Phone: CT Heart and Coronary arteri es for calcium scoring WO contraston 09-14-2021 Total Calcium score of 0. Calcium [...] for calcium scoring WO contrastOrdered By: Lashawn Sanders on 09-14-2021 [facility] Work Phone: CT Heart and Coronary arteri [...] bilateral pulmonary scarring within the imaged volume. Michele Chandra MD - 09/13/2021 FINDINGS: Dense metallic artifact [...] report for details regarding coronary calcium scoring. [facility] CT Heart and Coronary arteri es for calcium scoring WO contrastOrdered By: Michele Andrade on 09-12-2021 [facility] Work Phone: CT Heart and Coronary arteri es for calcium scoring WO contraston 09-11-2021 Radiology Study observation (narrative) [facility] FolateOrdered By: Tosha knight on 02-13-2021 Folate [Mass/Vol] 13.4 ng/mL [facility] Comment on above: Folate Reference Ran ge: >2.8 ng/mL . GLOMERULAR FILTRATION RATEOr dered By: Tosha Xavier on 02-13-2021 GFR >60 [facility] Comment on above: To estimate the GFR [...] [Mass/Vol] 4.4 g/dL 3.5 - 5.0 g/dL [facility] Alk Phos 105 U/L 24 - 126 U/L [facility] ALT [Catalytic activity/Vol] 22 U/L 4 - 35 U/L [facility] AST [Catalytic activity/Vol] 31 U/L 3 - 47 U/L [facility] Bilirubin [Mass/Vol] 0.9 mg/dL 0.2 - 1 .6 mg/dL [facility] Bilirubin.conjugated [Mass/Vol] 0.2 mg/dL 0.0 - 0.5 mg/dL [facility] Protein [Mass/Vol] 7.2 g/dL 6.3 - 8.2 g/dL [facility] IronOrdered By: Tosha Xavier on 02-13-2021 Iron [Mass/Vol] 122 ug/dL 37 - 170 ug/dL [facility] No Panel InformationOrdered By: Tosha Xavier on 02-13-2021 [facility] Renal function panelOrdered By: Tosha Xavier on 02-13-2021 Calcium [Mass/Vol] 9.7 mg/dL 8.4 - 10. 4 mg/dL [facility] Chloride [Moles/Vol] 100 mmol/L 96 - 10 9 mmol/L [facility] CO2 [Moles/Vol] 24 mmol/L 22 - 30 mmol/L [facility] Creatinine [Mass/Vol] 0.62 mg/dL 0.52 - 1.04 mg/dL [facility] Glucose [Mass/Vol] 93 mg/dL 65 - 100 mg/dL [facility] Phosphate [Mass/Vol] 3.5 mg/dL 2.5 - 4 .5 mg/dL [facility] Potassium [Moles/Vol] 4.6 mmol/L 3.6 - 5.1 mmol/L [facility] Sodium [Moles/Vol] 136 mmol/L 135 - 147 mmol/L [facility] Urea nitrogen [Mass/Vol] 13 mg/dL 8 - 20 mg/dL [facility] ReticulocytesOrdered By: Junie Xavier on 02-13-2021 Reticulocytes/100 RBC (Bld) 1.75 % 0.50 - 1.90 % [facility] Rheumatoid factorOrdered By: Tosha Xavier on 02-13-2021 Rheumatoid factor Qn [IU]/mL Gene [facility] Sedimentation rateOrdered By : Tosha Xavier on 02-13-2021 Sed Rate 11 [facility] Total Iron Binding CapacityO rdered By: Tosha Xavier on 02-13-2021 Iron binding capacity [Mass/Vol] 373 ug/dL 265 - 497 ug/dL [facility] Uric acidOrdered By: Tosha li on 02-13-2021 Urate [Mass/Vol] 4.6 mg/dL 2.0 - 7.0 mg/dL [facility] Vitamin [id number] By: Tosha Xavier on 02-13-2021 Cobalamin (Vitamin B12) [Mass/Vol] 213 pg/mL Low 239 - 931 pg/mL [facility] Interpretation and review of laboratory results Abnormal [facility] Bilirubin, directon 07-19-20 Bilirubin.conjugated [Mass/Vol] 0.3 mg/dL 0 - 0.5 mg/dL [facility] CBC with Differentialon 06-29 [facility] [place] [address] [facility] Basophils (Bld) [#/Vol] 0.0 10*3/uL [facility] Basophils/100 WBC (Bld) 0.3 % [facility] Eosinophils (Bld) [#/Vol] 0.3 10*3/uL [facility] Eosinophils/100 WBC (Bld) 3.6 % [facility] Erythrocyte distribution width (RBC) [Ratio] 14.6 % High 11.5 - 14.5 % [facility] Hematocrit (Bld) [Volume fraction] 46.2 % 33.6 - 46.8 % [facility] Hemoglobin (Bld) [Mass/Vol] 14.1 g/dL 11.7 - 15.8 g/dL [facility] Interpretation and review of laboratory results Abnormal [facility] Lymphocytes (Bld) [#/Vol] 1.9 10*3/uL [facility] Lymphocytes/100 WBC (Bld) 27.0 % [facility] MCH (RBC) [Entitic mass] 28.0 pg 27.5 - 32.[address] [facility] MCHC (RBC) [Mass/Vol] 30.5 g/dL Low 30.7 - 35.5 g/dl [facility] MCV (RBC) [Entitic vol] 91.7 fL 80.2 - [address] [facility] Monocytes/100 WBC (Bld) 7.7 % [facility] Neutrophils (Bld) [#/Vol] 4.2 10*3/uL [facility] Neutrophils/100 WBC (Bld) 61.4 % [facility] Platelets (Bld) [#/Vol] 249.0 10*3/uL [facility] RBC (Bld) [#/Vol] 5.04 10*6/uL [facility] WBC LM Ql (Sput) 6.[address] [facility] Comprehensive metabolic pane rony 07-19-2020 Albumin [Mass/Vol] 4.1 g/dL 3.5 - 5 g/dL [facility] Alk Phos 93 U/L 24 - 126 U/L [facility] ALT [Catalytic activity/Vol] 34 U/L 4 - 35 U/L [facility] AST [Catalytic activity/Vol] 33 U/L 3 - 47 U/L [facility] Bilirubin [Mass/Vol] 0.7 mg/dL 0.2 - 1 .6 mg/dL [facility] Calcium [Mass/Vol] 9.6 mg/dL 8.4 - 10. 4 mg/dL [facility] Chloride [Moles/Vol] 105 mmol/L 96 - 10 9 mmol/L [facility] CO2 [Moles/Vol] 27 mmol/L 22 - 30 mmol/L [facility] Comprehensive metabolic 2000 panel 0.69 mg/dL 0.52 - 1.04 mg/dL [facility] Glucose [Mass/Vol] 96 mg/dL 65 - 100 mg/dL [facility] Potassium [Moles/Vol] 5.0 mmol/L 3.6 - 5.1 mmol/L [facility] Protein [Mass/Vol] 6.7 g/dL 6.3 - 8.2 g/dL [facility] Sodium [Moles/Vol] 140 mmol/L 135 - 147 mmol/L [facility] Urea nitrogen [Mass/Vol] 14 mg/dL 8 - 20 mg/dL [facility] GLOMERULAR FILTRATION RATEon 07-19-2020 GFR/1.73 sq M.predicted MDRD (S/P/Bld) [Vol rate/Area] mL/min/{1.73_m2} [facility] Comment on above: To estimate the GFR [...] 3.5 mg/dL 2.5 - 4 .5 mg/dL [facility] Rheumatoid factoron 07-19-20 20 Rheumatoid factor Qn [IU]/mL Gene [facility] Sedimentation rateon 020 Sed Rate [address] [facility] Uric acidon 07-19-2020 Urate [Mass/Vol] 3.9 mg/dL 2 - 7 mg/dL [facility] T4, Freeon 02-11-2020 Free T4 [Mass/Vol] 1.00 ng/dL 0.78 - 2.19 ng/dL [facility] TSHon 02-11-2020 TSH Qn 2.550 m[IU]/L [facility] Bilirubin, directon 05-20-20 19 Bilirubin.conjugated [Mass/Vol] 0.5 mg/dL 0 - 0.5 mg/dL [facility] CBC with Differentialon 04-29 Absolute [place] [address] [facility] Basophils (Bld) [#/Vol] 0.0 10*3/uL [facility] Basophils/100 WBC (Bld) 0.2 % [facility] Eosinophils (Bld) [#/Vol] 1.0 10*3/uL High [facility] Eosinophils/100 WBC (Bld) 11.7 % [facility] Erythrocyte distribution width (RBC) [Ratio] 15.3 % High 11.5 - 14.5 % [facility] Hematocrit (Bld) [Volume fraction] 45.9 % 33.6 - 46.8 % [facility] Hemoglobin (Bld) [Mass/Vol] 14.0 g/dL 11.7 - 15.8 g/dL [facility] Interpretation and review of laboratory results Abnormal [facility] Lymphocytes (Bld) [#/Vol] 2.2 10*3/uL [facility] Lymphocytes/100 WBC (Bld) 25.7 % [facility] MCH (RBC) [Entitic mass] 28.5 pg 27.5 - 32.[address] [facility] MCHC (RBC) [Mass/Vol] 30.5 g/dL Low 30.7 - 35.5 g/dl [facility] MCV (RBC) [Entitic vol] 93.5 fL 80.2 - [address] [facility] Monocytes/100 WBC (Bld) 7.3 % [facility] Neutrophils (Bld) [#/Vol] 4.7 10*3/uL [facility] Neutrophils/100 WBC (Bld) 55.1 % [facility] Platelets (Bld) [#/Vol] 337.0 10*3/uL [facility] RBC (Bld) [#/Vol] 4.91 10*6/uL [facility] WBC LM Ql (Sput) 8.[address] [facility] Comprehensive metabolic pane l aka Metaboon 05-20-2019 Albumin [Mass/Vol] 3.8 g/dL 3.5 - 5 g/dL [facility] Alk Phos 102 U/L 24 - 126 U/L [facility] ALT [Catalytic activity/Vol] 27 U/L 4 - 35 U/L [facility] AST [Catalytic activity/Vol] 30 U/L 3 - 47 U/L [facility] Bilirubin [Mass/Vol] 0.7 mg/dL 0.2 - 1 .6 mg/dL [facility] Calcium [Mass/Vol] 10.0 mg/dL 8.4 - 10. 4 mg/dL [facility] Chloride [Moles/Vol] 106 mmol/L 96 - 10 9 mmol/L [facility] CO2 [Moles/Vol] 30 mmol/L 22 - 30 mmol/L [facility] Comprehensive metabolic 2000 panel 0.76 mg/dL 0.52 - 1.04 mg/dL [facility] Glucose [Mass/Vol] 100 mg/dL 65 - 100 mg/dL [facility] Interpretation and review of laboratory results Abnormal [facility] Potassium [Moles/Vol] 5.2 mmol/L High 3.6 - 5.1 mmol/L [facility] Protein [Mass/Vol] 6.5 g/dL 6.3 - 8.2 g/dL [facility] Sodium [Moles/Vol] 142 mmol/L 135 - 147 mmol/L [facility] Urea nitrogen [Mass/Vol] 10 mg/dL 8 - 20 mg/dL [facility] EKG 12-LEADon 05-20-2019 Stationary ECG Study Test Date: 2019-05-20 Pat Name: BRANDIE KISER Department: Room: Gender: Female Child Welfare Social Worker: BETI : 1935 Requested By: Order Number: Reading MD: Philippe Ray Measurements Intervals [place] Rate: 90 P: 55 CO: 139 QRS: 37 QRSD: 87 T: 37 QT: 349 QTc: 396 Interpretive Statements SINUS RHYTHM NORMAL ECG Electronically Signed On 05-20-2019 16:14:13 EDT by Philippe Ray [facility] GLOMERULAR FILTRATION RATEon 05-20-2019 GFR/1.73 sq M.predicted MDRD (S/P/Bld) [Vol rate/Area] mL/min/{1.73_m2} [facility] Comment on above: To estimate the GFR [...] 3.4 mg/dL 2.5 - 4 .5 mg/dL [facility] Otheron 05-20-2019 Linear atelectasis v ersus scarring in lingula. Otherwise, no radiographic evidence of acute cardiopulmonary process. [facility] EXAMINATION: TWO XRA Y VIEWS OF THE [...] quadrant partially. Osseous structures are grossly stable. [facility] Diomedes, Rad Results In - 05/20/2019 7:33 [...] no radiographic evidence of acute cardiopulmonary process. [facility] Protime-INRon 05-20-2019 INR Coag (PPP) [Relative time] 0.99 {INR} [facility] PT Coag (PPP) [Time] 10.0 s [facility] [employer] [facility] TSHon 05-20-2019 TSH Qn 2.220 m[IU]/L [facility] Bilirubin, directon 04-15-20 19 Bilirubin.conjugated [Mass/Vol] 0.4 mg/dL 0 - 0.5 mg/dL [facility] C-reactive protein (Inflamma tory)on 04-15-2019 CRP [Mass/Vol] mg/L 0 - 9.9 mg/L [facility] CBC with Differentialon 03-29 Absolute [place] 0.[address] [facility] Basophils (Bld) [#/Vol] 0.0 10*3/uL [facility] Basophils/100 WBC (Bld) 0.1 % [facility] Eosinophils (Bld) [#/Vol] 0.1 10*3/uL [facility] Eosinophils/100 WBC (Bld) 0.7 % [facility] Erythrocyte distribution width (RBC) [Ratio] 14.6 % High 11.5 - 14.5 % [facility] Hematocrit (Bld) [Volume fraction] 48.8 % High 33.6 - 46.8 % [facility] Hemoglobin (Bld) [Mass/Vol] 15.5 g/dL 11.7 - 15.8 g/dL [facility] Interpretation and review of laboratory results Abnormal [facility] Lymphocytes (Bld) [#/Vol] 1.7 10*3/uL [facility] Lymphocytes/100 WBC (Bld) 13.4 % [facility] MCH (RBC) [Entitic mass] 28.5 pg 27.5 - 32.[address] [facility] MCHC (RBC) [Mass/Vol] 31.8 g/dL 30.7 - 35.5 g/dl [facility] MCV (RBC) [Entitic vol] 89.7 fL 80.2 - [address] [facility] Monocytes/100 WBC (Bld) 5.5 % [facility] Neutrophils (Bld) [#/Vol] 10.5 10*3/uL High [facility] Neutrophils/100 WBC (Bld) 80.3 % [facility] Platelets (Bld) [#/Vol] 267.0 10*3/uL [facility] RBC (Bld) [#/Vol] 5.44 10*6/uL High [facility] WBC LM Ql (Sput) 13.[address] [facility] Comprehensive metabolic pane l aka Metaboon 04-15-2019 Albumin [Mass/Vol] 4.0 g/dL 3.5 - 5 g/dL [facility] Alk Phos 80 U/L 24 - 126 U/L [facility] ALT [Catalytic activity/Vol] 29 U/L 4 - 35 U/L [facility] AST [Catalytic activity/Vol] 23 U/L 3 - 47 U/L [facility] Bilirubin [Mass/Vol] 1.0 mg/dL 0.2 - 1 .6 mg/dL [facility] Calcium [Mass/Vol] 9.8 mg/dL 8.4 - 10. 4 mg/dL [facility] Chloride [Moles/Vol] 96 mmol/L 96 - 10 9 mmol/L [facility] CO2 [Moles/Vol] 28 mmol/L 22 - 30 mmol/L [facility] Comprehensive metabolic 2000 panel 0.73 mg/dL 0.52 - 1.04 mg/dL [facility] Glucose [Mass/Vol] 102 mg/dL High 65 - 100 mg/dL [facility] Interpretation and review of laboratory results Abnormal [facility] Potassium [Moles/Vol] 4.4 mmol/L 3.6 - 5.1 mmol/L [facility] Protein [Mass/Vol] 6.8 g/dL 6.3 - 8.2 g/dL [facility] Sodium [Moles/Vol] 135 mmol/L 135 - 147 mmol/L [facility] Urea nitrogen [Mass/Vol] 22 mg/dL High 8 - 20 mg/dL [facility] D-dimer, quantitativeon 03-29 Fibrin D-dimer FEU (PPP) [Mass/Vol] 0.[address] [facility] Comment on above: Diagnostic Cutoff (P E/DVT): <=0.50mg/L (FEU) The results of this test should always be interpreted in conjunction with pretest probability assessment as a negative indicator for deep-vein thrombosis (DVT) or pulmonary embolism (PE). GLOMERULAR FILTRATION RATEon 04-15-2019 GFR/1.73 sq M.predicted MDRD (S/P/Bld) [Vol rate/Area] mL/min/{1.73_m2} [facility] Comment on above: To estimate the GFR [...] fraction] 5.6 % 0 - 6 % [facility] Comment on above: Reference Interval f or %A1c %A1c (NGSP) Interpretation <6.0% Non-Diabetic Range >6.5% Action Suggested . INORGANIC PHOSPHORUSon 04-15 Phosphate [Mass/Vol] 4.0 mg/dL 2.5 - 4 .5 mg/dL [facility] Ironon 04-15-2019 Iron [Mass/Vol] 169 ug/dL 37 - 170 ug/dL [facility] Rheumatoid factoron 04-15-20 19 Rheumatoid factor Qn [IU]/mL Gene [facility] Sedimentation rateon 019 Sed Rate [address] [facility] Uric acidon 04-15-2019 Urate [Mass/Vol] 4.5 mg/dL 2 - 7 mg/dL [facility] ECG 12 Leadon 12-27-2017 Atrial Rate Invalid Interpretation Code [facility] P [place] Invalid Interpretation Code [facility] P-R Interval Invalid Interpretation Code [facility] Q-T Interval Invalid Interpretation Code [facility] Q-T Interval (corrected) Invalid Interpretation Code [facility] QRS Duration Invalid Interpretation Code [facility] Calculation (Bezet) Invalid Interpretation Code [facility] Invalid Interpretation Code [facility] Invalid Interpretation Code [facility] Ventricular Rate Invalid Interpretation Code [facility] ECHOCARDIOGRAM COMPLETEon ECHOCARDIOGRAM COMPLETE Transthoracic Echocardiogram ___Patient: RASHEL Walker [facility] Rec#: [id number] (Age): 1935(82y) Height: 155(cm)/60(in) Study Date: 11/20/2017 Weight: 68(kg)/150(lbs)Room#: OP BSA: 1.67 Type: Inpatient Loc: CILSex: F Reading: Dimitri Noble MD, FAC Referring: REHAN HAIRSTNO PATRICK Child Welfare Social Worker: Margarita Driscoll [facility] History: GERD. Hypertension. Thyroid disease. Diagnosis: ICD-10-PCS Edema, unspecified (R60.9) [id number] (primary) hypertension (I10) Hypertension, unspecified withoutfailure (402.90) CPT Code(s): ECHO COMPLETE W/ DOPPLER (41849) Study Quality The study quality is fair. [...] 11:09:21 by: Dimitri Noble MD,FACC, PARUL SUH[facility] Comment on above: Order Comment: PT/FX Echocardiogram completeon Echocardiogram complete Transthoracic Echocardiogram Patient: RASHEL Chapin Rec#: [id number] (Age): 1935(82y) Height: 155(cm)/60(in) Study Date: 11/20/2017 Weight: 68(kg)/150(lbs) Room#: BSA: 1.67 Type: Inpatient Loc: [facility] Sex: F Reading: Dimitri Noble MD, FAC Referring: REHAN HAIRSTON PATRICK Child Welfare Social Worker: Margarita Driscoll [facility] History: GERD. Hypertension. Thyroid disease. Diagnosis: ICD-10-PCS Edema, unspecified (R60.9) ICD-10-PCS Essential (primary) hypertension (I10) Hypertension, unspecified without failure (402.90) CPT Code(s): ECHO COMPLETE W/ DOPPLER (15801) Study Quality The study quality is fair. [...] Electronically Signed at 11/20/2017 11:09:21 by: Dimitri Nbole MD, FACC, FASE, FASNC, FSCCT Invalid Interpretation Code [facility] RAD Echocardiogram complete Interface, Rad In [facility] - 11/20/2017 11:10 AM EDT Transthoracic Echocardiogram Patient: RASHEL Chapin Rec#: [id number] (Age): 1935(82y) Height: 155(cm)/60(in) Study Date: 11/20/2017 Weight: 68(kg)/150(lbs) Room#: BSA: 1.67 Type: Inpatient Loc: [facility] Sex: F Reading: Dimitri Noble MD, FAC Referring: REHAN HAIRSTON PATRICK Child Welfare Social Worker: Margarita Driscoll [facility] History: GERD. Hypertension. Thyroid disease. Diagnosis: ICD-10-PCS Edema, unspecified (R60.9) ICD-10-PCS Essential (primary) hypertension (I10) Hypertension, unspecified without failure (402.90) CPT Code(s): ECHO COMPLETE W/ DOPPLER (08904) Study Quality The study quality is fair. [...] Time Vital Sign Value Performing Clinician Facility 05-04-2025 10:36-0400 Body temperature 98 [degF] Tosha ROSE Work Phone: [facility] 05-04-2025 10:36-0400 Body weight 68.4 kg Tosha Purkey [employer] Work Phone: [facility] 05-04-2025 10:36-0400 Diastolic blood pressure 67 mm[Hg] Tosha Purkey [employer] Work Phone: [facility] 05-04-2025 10:36-0400 Heart rate 69 /min Tosha Purkey [employer] Work Phone: [facility] 05-04-2025 10:36-0400 Respiratory rate 17 /min Tosha Purkey [employer] Work Phone: [facility] 05-04-2025 10:36-0400 SaO2% (BldA) [Mass fraction] 93 % Tosha Purkey [employer] Work Phone: [facility] 05-04-2025 10:36-0400 Systolic blood pressure 110 mm[Hg] Tosha Purkey [employer] Work Phone: [facility] 02-09-2025 08:56-0400 Body height 157.48 cm MAURA JESS [employer]ODY Work Phone: [facility] 02-09-2025 08:56-0400 Body mass index (BMI) [Ratio] 28.1 kg/m2 MAURA JESS [employer]ODY Work Phone: [facility] 02-09-2025 08:56-0400 Body temperature 98.4 [degF] MAURA JESS [employer] Work Phone: [facility] 02-09-2025 08:56-0400 Body weight 69.85 kg MAURA JESS [employer] Work Phone: [facility] 02-09-2025 08:56-0400 Diastolic blood pressure 71 mm[Hg] MAURA JESS [employer] Work Phone: [facility] 02-09-2025 08:56-0400 Heart rate 77 /min MAURA JESS [employer] Work Phone: [facility] 02-09-2025 08:56-0400 Respiratory rate 15 /min MAURA MERCADO [employer]ODY Work Phone: [facility] 02-09-2025 08:56-0400 SaO2% (BldA) [Mass fraction] 95 % MAURA MERCADO [employer] Work Phone: [facility] 02-09-2025 08:56-0400 Systolic blood pressure 114 mm[Hg] MAURA MERCADO [employer] Work Phone: [facility] 12-24-2024 13:56-0400 Body height 157.5 cm Pollo Weeks MD Work Phone: [facility] 12-24-2024 13:56-0400 Body mass index (BMI) [Ratio] 28.39 kg/m2 Pollo Weeks MD Work Phone: [facility] 12-24-2024 13:56-0400 Body weight 70.4 kg Pollo Weeks MD Work Phone: [facility] 12-24-2024 13:56-0400 Diastolic blood pressure 65 mm[Hg] Pollo Weeks MD Work Phone: [facility] 12-24-2024 13:56-0400 Heart rate 74 /min Pollo Weeks MD Work Phone: [facility] 12-24-2024 13:56-0400 SaO2% (BldA) [Mass fraction] 95 % Pollo Weeks MD Work Phone: [facility] 12-24-2024 13:56-0400 Systolic blood pressure 102 mm[Hg] Pollo Weeks MD Work Phone: [facility] 11-19-2024 14:18-0400 Body temperature 97.5 [degF] Brandie Boyd DO Work Phone: [facility] 11-19-2024 14:18-0400 Diastolic blood pressure 80 mm[Hg] Brandie Boyd DO Work Phone: [facility] 11-19-2024 14:18-0400 Heart rate 89 /min Brandie Boyd DO Work Phone: [facility] 11-19-2024 14:18-0400 Respiratory rate 16 /min Brandie Boyd DO Work Phone: [facility] 11-19-2024 14:18-0400 SaO2% (BldA) [Mass fraction] 94 % Brandie Boyd DO Work Phone: [facility] 11-19-2024 14:18-0400 Systolic blood pressure 152 mm[Hg] Brandie Boyd DO Work Phone: [facility] 11-19-2024 10:22-0400 Body height 157.5 cm Brandie Boyd DO Work Phone: [facility] 11-19-2024 10:22-0400 Body mass index (BMI) [Ratio] 32.56 kg/m2 Brandie Boyd DO Work Phone: [facility] 11-19-2024 10:22-0400 Body weight 80.74 kg Brandie Boyd DO Work Phone: [facility] 10-15-2024 16:45-0400 SaO2% (BldA) [Mass fraction] 92 % MAURA MERCADO [employer] Work Phone: [facility] 10-15-2024 16:30-0400 Diastolic blood pressure 64 mm[Hg] MAURA MERCADO [employer] Work Phone: [facility] 10-15-2024 16:30-0400 Systolic blood pressure 138 mm[Hg] MAURA MECRADO [employer]ODY Work Phone: [facility] 10-15-2024 14:22-0400 Body height 157.48 cm MAURA MERCADO [employer] Work Phone: [facility] 10-15-2024 14:22-0400 Body mass index (BMI) [Ratio] 29 kg/m2 MAURA MERCADO [employer] Work Phone: [facility] 10-15-2024 14:22-0400 Body temperature 97.9 [degF] MAURA MERCADO [employer] Work Phone: [facility] 10-15-2024 14:22-0400 Body weight 72.1 kg MAURA MERCADO [employer] Work Phone: [facility] 10-15-2024 14:22-0400 Heart rate 74 /min MAURA MERCADO [employer] Work Phone: [facility] 10-15-2024 14:22-0400 Respiratory rate 18 /min MAURA MERCADO [employer] Work Phone: [facility] 05-11-2024 10:40-0400 Body height 154.94 cm Michele Leon Work Phone: [facility] 05-11-2024 10:40-0400 Body mass index (BMI) [Ratio] 29.29 kg/m2 Michele Dariomichellemanuelito Work Phone: [facility] 05-11-2024 10:40-0400 Body weight 70.31 kg Michele Leon Work Phone: [facility] 12-26-2023 10:21-0400 Body height 157.5 cm Pollo Weeks MD Work Phone: [facility] 12-26-2023 10:21-0400 Body mass index (BMI) [Ratio] 32.56 kg/m2 Pollo Weeks MD Work Phone: [facility] 12-26-2023 10:21-0400 Body weight 80.74 kg Pollo Weeks MD Work Phone: [facility] 12-26-2023 10:21-0400 Diastolic blood pressure 88 mm[Hg] Pollo Weeks MD Work Phone: [facility] 12-26-2023 10:21-0400 Heart rate 95 /min Pollo Weeks MD Work Phone: [facility] 12-26-2023 10:21-0400 SaO2% (BldA) [Mass fraction] 96 % Pollo Weeks MD Work Phone: [facility] 12-26-2023 10:21-0400 Systolic blood pressure 136 mm[Hg] Pollo Weeks MD Work Phone: [facility] 11-29-2023 11:05-0400 Body height 157.48 cm [employer] Tosha Purkey [employer]ODY Work Phone: [facility] 11-29-2023 11:05-0400 Body mass index (BMI) [Ratio] 28.7 kg/m2 [employer] Tosha Purkey [employer]ODY Work Phone: [facility] 11-29-2023 11:05-0400 Body weight 71.21 kg [employer] Tosha Purkey [employer] Work Phone: [facility] 11-29-2023 11:05-0400 Diastolic blood pressure 78 mm[Hg] [employer] Tosha Purkey [employer]ODY Work Phone: [facility] 11-29-2023 11:05-0400 Heart rate 85 /min [employer] Tosha Purkey [employer] Work Phone: [facility] 11-29-2023 11:05-0400 Respiratory rate 16 /min [employer] Tosha Purkey [employer] Work Phone: [facility] 11-29-2023 11:05-0400 SaO2% (BldA) [Mass fraction] 95 % [employer] Tosha Purkey [employer] Work Phone: [facility] 11-29-2023 11:05-0400 Systolic blood pressure 118 mm[Hg] [employer] Tosha Purkey [employer]ODY Work Phone: [facility] 09-09-2023 10:46-0500 Body height 157.48 cm [employer] Tosha Purkey [employer]ODY Work Phone: [facility] 09-09-2023 10:46-0500 Body mass index (BMI) [Ratio] 27.8 kg/m2 [employer] Tosha Purkey [employer] Work Phone: [facility] 09-09-2023 10:46-0500 Body weight 68.94 kg [employer] Tosha Purkey [employer] Work Phone: [facility] 09-09-2023 10:46-0500 Diastolic blood pressure 80 mm[Hg] [employer] Tosha Purkey [employer] Work Phone: [facility] 09-09-2023 10:46-0500 Heart rate 83 /min [employer] Tosha Purkey [employer] Work Phone: [facility] 09-09-2023 10:46-0500 Respiratory rate 18 /min [employer] Tosha Purkey [employer] Work Phone: [facility] 09-09-2023 10:46-0500 SaO2% (BldA) [Mass fraction] 95 % [employer] Tosha Purkey [employer]ODY Work Phone: [facility] 09-09-2023 10:46-0500 Systolic blood pressure 120 mm[Hg] [employer] Tosha Purkey [employer]ODY Work Phone: [facility] 2023 20:22-0500 Diastolic blood pressure 75 mm[Hg] [employer] Tosha Purkey [employer]ODY Work Phone: [facility] 2023 20:22-0500 Heart rate 88 /min [employer] Tosha Purkey [employer] Work Phone: [facility] 2023 20:22-0500 Respiratory rate 21 /min [employer] Tosha Purkey [employer] Work Phone: [facility] 2023 20:22-0500 Systolic blood pressure 121 mm[Hg] [employer] Tosha Purkey [employer] Work Phone: [facility] 2023 18:26-0500 Body height 157.48 cm [employer] Tosha Purkey [employer] Work Phone: [facility] 2023 18:26-0500 Body mass index (BMI) [Ratio] 25.6 kg/m2 [employer] Tosha Purkey [employer] Work Phone: [facility] 2023 18:26-0500 Body temperature 95.2 [degF] [employer] Tosha Purkey [employer] Work Phone: [facility] 2023 18:26-0500 Body weight 63.5 kg [employer] Tosha Purkey [employer] Work Phone: [facility] 2023 18:26-0500 SaO2% (BldA) [Mass fraction] 95 % [employer] Tosha Purkey [employer] Work Phone: [facility] 08-12-2023 16:17-0500 Diastolic blood pressure 83 mm[Hg] [employer] Tosha Purkey [employer] Work Phone: [facility] 08-12-2023 16:17-0500 Heart rate 67 /min [employer] Tosha Purkey [employer] Work Phone: [facility] 08-12-2023 16:17-0500 Respiratory rate 17 /min [employer] Tosha Purkey [employer] Work Phone: [facility] 08-12-2023 16:17-0500 Systolic blood pressure 155 mm[Hg] [employer] Tosha Purkey [employer] Work Phone: [facility] 08-12-2023 12:38-0500 SaO2% (BldA) [Mass fraction] 95 % [employer] Tosha Purkey [employer] Work Phone: [facility] 08-12-2023 12:15-0500 Body height 157 cm [employer] Tosha Purkey [employer] Work Phone: [facility] 08-12-2023 12:15-0500 Body mass index (BMI) [Ratio] 25.7 kg/m2 [employer] Tosha Purkey [employer] Work Phone: [facility] 08-12-2023 12:15-0500 Body temperature 96.3 [degF] [employer] Tosha Purkey [employer] Work Phone: [facility] 08-12-2023 12:15-0500 Body weight 63.5 kg [employer] Tosha Purkey [employer] Work Phone: [facility] 05-01-2023 10:05-0400 Body mass index (BMI) [Ratio] 27.1 kg/m2 [employer] Tosha Purkey [employer] Work Phone: [facility] 05-01-2023 10:05-0400 Body weight 67.13 kg [employer] Tosha Purkey [employer] Work Phone: [facility] 05-01-2023 10:05-0400 Diastolic blood pressure 81 mm[Hg] [employer] Tosha Purkey [employer] Work Phone: [facility] 05-01-2023 10:05-0400 Heart rate 83 /min [employer] Tosha Purkey [employer] Work Phone: [facility] 05-01-2023 10:05-0400 Respiratory rate 16 /min [employer] Tosha Purkey [employer] Work Phone: [facility] 05-01-2023 10:05-0400 Systolic blood pressure 127 mm[Hg] [employer] Tosha Purkey [employer] Work Phone: [facility] 04-08-2023 17:43-0400 Body height 157.48 cm [facility] 04-08-2023 17:43-0400 Body mass index (BMI) [Ratio] 27.3 kg/m2 [facility] 04-08-2023 17:43-0400 Body temperature 96.9 [degF] [facility] 04-08-2023 17:43-0400 Body weight 67.72 kg [facility] 04-08-2023 17:43-0400 Diastolic blood pressure 87 mm[Hg] [facility] 04-08-2023 17:43-0400 Heart rate 85 /min [facility] 04-08-2023 17:43-0400 Respiratory rate 16 /min [facility] 04-08-2023 17:43-0400 SaO2% (BldA) [Mass fraction] 97 % [facility] 04-08-2023 17:43-0400 Systolic blood pressure 137 mm[Hg] [facility] 04-08-2023 02:22-0400 Diastolic blood pressure 86 mm[Hg] [facility] 04-08-2023 02:22-0400 Heart rate 81 /min [facility] 04-08-2023 02:22-0400 Respiratory rate 15 /min [facility] 04-08-2023 02:22-0400 SaO2% (BldA) [Mass fraction] 94 % [facility] 04-08-2023 02:22-0400 Systolic blood pressure 135 mm[Hg] [facility] 04-07-2023 22:52-0400 Body mass index (BMI) [Ratio] 27.3 kg/m2 [facility] 04-07-2023 22:52-0400 Body temperature 98.3 [degF] [facility] 04-07-2023 22:52-0400 Body weight 67.84 kg [facility] 05-28-2022 08:49-0400 Body height 157.48 cm [employer] Tosha Xavier [employer]ODY Work Phone: [facility] Work Phone: 05-28-2022 08:49-0400 Body mass index (BMI) [Ratio] 26.3 kg/m2 [employer] Tosha Purkey [employer]ODY Work Phone: [facility] Work Phone: 05-28-2022 08:49-0400 Body weight 65.31 kg [employer] Tosha Morenita [employer]ODY Work Phone: [facility] Work Phone: 10-31-2022 08:49-0400 Diastolic blood pressure 79 mm[Hg] [employer] Tosha Purkey [employer]ODY Work Phone: [facility] Work Phone: 05-28-2022 08:49-0400 Heart rate 84 /min [employer] Tosha Purkey [employer] Work Phone: [facility] Work Phone: 05-28-2022 08:49-0400 Respiratory rate 18 /min [employer] Tosha Purkey [employer] Work Phone: [facility] Work Phone: 05-28-2022 08:49-0400 SaO2% (BldA) [Mass fraction] 96 % [employer] Tosha Purkey [employer]ODY Work Phone: [facility] Work Phone: 05-28-2022 08:49-0400 Systolic blood pressure 126 mm[Hg] [employer] Tosha Purkey [employer] Work Phone: [facility] Work Phone: 05-08-2022 16:14-0400 SaO2% (BldA) [Mass fraction] 97 % [employer] Tosha Purkey [employer] Work Phone: [facility] Work Phone: 05-08-2022 14:48-0400 Body temperature 99.1 [degF] [employer] Tosha Purkey [employer] Work Phone: [facility] Work Phone: 05-08-2022 14:48-0400 Diastolic blood pressure 74 mm[Hg] [employer] Tosha Purkey [employer] Work Phone: [facility] Work Phone: 05-08-2022 14:48-0400 Heart rate 81 /min [employer] Tosha Purkey [employer]ODY Work Phone: [facility] Work Phone: 05-08-2022 14:48-0400 Respiratory rate 14 /min [employer] Tosha Purkey [employer] Work Phone: [facility] Work Phone: 05-08-2022 14:48-0400 Systolic blood pressure 120 mm[Hg] [employer] Tosha Purkey [employer] Work Phone: [facility] Work Phone: 05-08-2022 05:25-0400 Body weight 63.4 kg [employer] Tosha Purkey [employer] Work Phone: [facility] Work Phone: 05-07-2022 08:36-0400 Body height 157.48 cm [employer] Tosha Purkey [employer] Work Phone: [facility] Work Phone: 05-07-2022 08:36-0400 Body mass index (BMI) [Ratio] 25.6 kg/m2 [employer] Tosha Purkey [employer] Work Phone: [facility] Work Phone: 05-05-2022 19:41-0400 Body temperature 96.3 [degF] [employer] Tosha Purkey [employer] Work Phone: [facility] Work Phone: 05-05-2022 19:41-0400 Diastolic blood pressure 98 mm[Hg] [employer] Tosha Purkey [employer] Work Phone: [facility] Work Phone: 05-05-2022 19:41-0400 Heart rate 91 /min [employer] Tosha Purkey [employer] Work Phone: [facility] Work Phone: 05-05-2022 19:41-0400 Respiratory rate 18 /min [employer] Tosha Purkey [employer] Work Phone: [facility] Work Phone: 05-05-2022 19:41-0400 SaO2% (BldA) [Mass fraction] 96 % [employer] Tosha Purkey [employer] Work Phone: [facility] Work Phone: 05-05-2022 19:41-0400 Systolic blood pressure 128 mm[Hg] [employer] Tosha Purkey [employer] Work Phone: [facility] Work Phone: 05-05-2022 15:51-0400 Body height 157.48 cm [employer] Tosha Purkey [employer] Work Phone: [facility] Work Phone: 05-05-2022 15:51-0400 Body mass index (BMI) [Ratio] 25.6 kg/m2 [employer] Tosha Purkey [employer] Work Phone: [facility] Work Phone: 05-05-2022 15:51-0400 Body weight 63.5 kg [employer] Tosha Purkey [employer] Work Phone: [facility] Work Phone: 03-07-2022 13:57-0400 Body height 157.48 cm [employer] Tosha Purkey [employer] Work Phone: [facility] Work Phone: 03-07-2022 13:57-0400 Body mass index (BMI) [Ratio] 25.9 kg/m2 [employer] Tosha Purkey [employer] Work Phone: [facility] Work Phone: 03-07-2022 13:57-0400 Body weight 64.41 kg [employer] Tosha Purkey [employer] Work Phone: [facility] Work Phone: 03-07-2022 13:57-0400 Diastolic blood pressure 73 mm[Hg] [employer] Tosha Purkey [employer] Work Phone: [facility] Work Phone: 03-07-2022 13:57-0400 Heart rate 72 /min [employer] Tosha Purkey [employer] Work Phone: [facility] Work Phone: 03-07-2022 13:57-0400 Respiratory rate 18 /min [employer] Tosha Purkey [employer] Work Phone: [facility] Work Phone: 03-07-2022 13:57-0400 SaO2% (BldA) [Mass fraction] 96 % [employer] Tosha Purkey [employer] Work Phone: [facility] Work Phone: 03-07-2022 13:57-0400 Systolic blood pressure 123 mm[Hg] [employer] Tosha Purkey [employer] Work Phone: [facility] Work Phone: 02-26-2022 10:04-0400 Body height 157.48 cm [employer] Tosha Purkey [employer] Work Phone: [facility] Work Phone: 02-26-2022 10:04-0400 Body weight 64.86 kg [employer] Tosha Purkey [employer] Work Phone: [facility] Work Phone: 02-23-2022 11:10-0400 Body mass index (BMI) [Ratio] 26.2 kg/m2 [employer] Tosha Purkey [employer] Work Phone: [facility] Work Phone: 02-08-2022 13:56-0400 Body temperature 98.9 [degF] [employer] Tosha Purkey [employer] Work Phone: [facility] Work Phone: 02-08-2022 13:56-0400 Diastolic blood pressure 78 mm[Hg] [employer] Tosha Purkey [employer] Work Phone: [facility] Work Phone: 02-08-2022 13:56-0400 Heart rate 78 /min [employer] Tosha Purkey [employer] Work Phone: [facility] Work Phone: 02-08-2022 13:56-0400 Respiratory rate 14 /min [employer] Tosha Purkey [employer] Work Phone: [facility] Work Phone: 02-08-2022 13:56-0400 SaO2% (BldA) [Mass fraction] 99 % [employer] Tosha Purkey [employer] Work Phone: [facility] Work Phone: 02-08-2022 13:56-0400 Systolic blood pressure 116 mm[Hg] [employer] Tosha Purkey [employer] Work Phone: [facility] Work Phone: 02-08-2022 11:34-0400 Body height 157.48 cm [employer] Tosha Purkey [employer] Work Phone: [facility] Work Phone: 02-08-2022 11:34-0400 Body mass index (BMI) [Ratio] 27.6 kg/m2 [employer] Tosha Purkey [employer] Work Phone: [facility] Work Phone: 02-08-2022 11:34-0400 Body weight 68.5 kg [employer] Tosha Purkey [employer] Work Phone: [facility] Work Phone: 12-13-2021 12:48-0400 Body mass index (BMI) [Ratio] 26.2 kg/m2 [employer] Tosha Purkey [employer] Work Phone: [facility] Work Phone: 12-13-2021 12:48-0400 Body weight 64.86 kg [employer] Tosha Purkey [employer] Work Phone: [facility] Work Phone: 12-13-2021 12:48-0400 Diastolic blood pressure 75 mm[Hg] [employer] Tosha Purkey [employer] Work Phone: [facility] Work Phone: 12-13-2021 12:48-0400 Heart rate 67 /min [employer] Tosha Purkey [employer] Work Phone: [facility] Work Phone: 12-13-2021 12:48-0400 Respiratory rate 18 /min [employer] Tosha Purkey [employer] Work Phone: [facility] Work Phone: 12-13-2021 12:48-0400 SaO2% (BldA) [Mass fraction] 98 % [employer]-C Tosha Purkey [employer]PUT[employer]ER[employer]ODY Work Phone: [facility] Work Phone: 12-13-2021 12:48-0400 Systolic blood pressure 126 mm[Hg] [employer]-C Tosha Purkey [employer]PUT[employer]ERIFF [employer]USTODY Work Phone: [facility] Work Phone: 11-23-2021 15:23-0400 Heart rate 93 /min Dr. All Cast Work Phone: [facility] Work Phone: 11-23-2021 14:09-0400 Diastolic blood pressure 74 mm[Hg] Dr. All Cast Work Phone: [facility] Work Phone: 11-23-2021 14:09-0400 Systolic blood pressure 113 mm[Hg] Dr. All Cast Work Phone: [facility] Work Phone: 11-23-2021 13:59-0400 Body temperature 97.7 [degF] Dr. All Cast Work Phone: [facility] Work Phone: 11-23-2021 13:59-0400 Respiratory rate 16 /min Dr. All Cast Work Phone: [facility] Work Phone: 11-23-2021 13:59-0400 SaO2% (BldA) [Mass fraction] 94 % Dr. All Cast Work Phone: [facility] Work Phone: 11-23-2021 09:38-0400 Body height 157.[address] All Cast Work Phone: [facility] Work Phone: 11-23-2021 09:38-0400 Body mass index (BMI) [Ratio] 25.8 kg/m2 Dr. All Cast Work Phone: [facility] Work Phone: 11-23-2021 09:38-04[address] Body weight [address] All Cast Work Phone: [facility] Work Phone: 10-31-2021 09:12-0400 Diastolic blood pressure 73 mm[Hg] Dr. All Cast Work Phone: [facility] Work Phone: 10-31-2021 09:12-0400 Heart rate 87 /min Dr. All Cast Work Phone: [facility] Work Phone: 10-31-2021 09:12-0400 Systolic blood pressure 112 mm[Hg] Dr. All Cast Work Phone: [facility] Work Phone: 10-31-2021 09:10-0400 Body temperature 97.9 [degF] Dr. All Cast Work Phone: [facility] Work Phone: 10-31-2021 09:10-0400 Respiratory rate 16 /min Dr. All Cast Work Phone: [facility] Work Phone: 10-31-2021 09:10-0400 SaO2% (BldA) [Mass fraction] 95 % Dr. All Cast Work Phone: [facility] Work Phone: 10-31-2021 07:22-0400 Inhaled oxygen flow rate 1 L/min MILTON Xavier DEPUTY SHERIFF CUSTODY Work Phone: [facility] Work Phone: 10-30-2021 09:15-0400 Body height 157.[address] All Cast Work Phone: [facility] Work Phone: 10-30-2021 09:15-0400 Body weight 66.[address] All Cast Work Phone: [facility] Work Phone: 10-20-2021 07:57-0400 Body mass index (BMI) [Ratio] 26.9 kg/m2 Dr. All Cast Work Phone: [facility] Work Phone: 10-06-2021 09:36-0500 Body mass index (BMI) [Ratio] 26.9 kg/m2 Dr. All Cast Work Phone: [facility] Work Phone: 10-06-2021 09:36-0500 Body weight 66.[address] All Cast Work Phone: [facility] Work Phone: 10-06-2021 09:36-0500 Diastolic blood pressure 83 mm[Hg] Dr. All Cast Work Phone: [facility] Work Phone: 10-06-2021 09:36-0500 Heart rate 86 /min Dr. All Cast Work Phone: [facility] Work Phone: 10-06-2021 09:36-0500 Respiratory rate 16 /min Dr. All Cast Work Phone: [facility] Work Phone: 10-06-2021 09:36-0500 SaO2% (BldA) [Mass fraction] 94 % Dr. All Cast Work Phone: [facility] Work Phone: 10-06-2021 09:36-0500 Systolic blood pressure 163 mm[Hg] Dr. All Cast Work Phone: [facility] Work Phone: 12-27-2017 15:25-0400 BP Diastolic 76 mm[Hg] [facility] 12-27-2017 15:25-0400 BP Systolic 116 mm[Hg] [facility] 12-27-2017 15:25-0400 Pulse (Heart Rate) 101 /min [facility] 12-27-2017 15:20-0400 BMI (Body Mass Index) 27.87 kg/m2 [facility] 12-27-2017 15:20-0400 Height 157.5 cm [facility] 12-27-2017 15:20-0400 Weight 69.13 kg [facility] Encounters Encounter Date Encounter Type Care Provider Facility Start: 05-04-2025 End: 05-04-[address] Rudolph Smith MD -[facility] Work Phone: Start: 05-04-2025 End: 05-04-2025 ambulatory Tosha ROSE Work Phone: -[facility] Start: 05-04-2025 End: 05-04-2025 ambulatory Maura Mercado Facility:[facility] Start: 04-28-2025 ambulatory Maura Mercado Facilit y:[facility] Start: 04-28-2025 Non-patient / Non-visit Dr. Parvez castillo MD [facility]- Start: 04-28-[address] Rudolph Smith MD -Pulmonary Services/Neurology Work Phone: Start: 04-28-2025 End: 04-28-2025 ambulatory Maura Mercado Facility:[facility] Start: 04-19-2025 End: 04-19-2025 ambulatory [facility] Facility: Start: 04-14-2025 ambulatory Maura Mercado Facilit y:[facility] Start: 04-14-2025 Non-patient / Non-visit Dr. Parvez castillo MD -[facility] Start: 04-14-2025 End: 04-14-2025 ambulatory Tosha Xavier DEPUTY SHERIFF CUSTODY-C Work Phone: -Pulmonary Services/Neurology Start: 04-14-2025 End: 04-14-[address] Rudolph Smith MD -Pulmonary Services/Neurology Work Phone: Start: 04-14-2025 End: 04-14-2025 ambulatory Maura Mercado Facility:[facility] Start: 03-02-2025 End: 03-02-2025 ambulatory Maura Mercado DE[employer]ER[employer] CUSTODY-C Work Phone: -[facility] Start: 03-02-2025 End: 03-02-[address] Rudolph Smith MD -[facility] Work Phone: Start: 03-02-2025 End: 03-02-2025 ambulatory Maura Mercado Facility:[facility] Start: 02-09-2025 End: 02-09-[address] Rudolph Smith MD -[facility] Work Phone: Start: 02-09-2025 End: 02-09-2025 ambulatory MAURA LOPEZORD [employer] C[employer]ODY Work Phone: -[facility] Start: 12-24-2024 End: 12-24-2024 ambulatory POLLO WEEKS [facility] Start: 12-24-2024 End: 12-24-2024 Office outpatient visit 25 minutes Pollo Weeks MD Work Phone: [facility] [place] Comment on above: Syncope, unspecified syncope type (Primary Dx) Start: 11-18-2024 End: 11-19-2024 ambulatory LOS HUA [facility] Start: 11-18-2024 End: 11-19-2024 Emergency department patient visit Brandie Boyd DO Work Phone: [facility] Trauma Neuro Progressive Care Unit PCU 3W Comment on above: Syncope, unspecified syncope type (Primary Dx); Chest pain, unspecified type; Right foot drop Start: 11-16-2024 ambulatory Maura Mercado Facilit y:[facility] Start: 11-16-2024 Registered Referred Maura Mercado DEPUT[employer] SHERIFF CUSTODY-C -Cardiovascular Services Work Phone: Start: 11-16-2024 ambulatory Maura Mercado Facilit y:[facility] Start: 11-16-2024 Non-patient / Non-visit [facility] Work Phone: Start: 10-27-2024 ambulatory Tosha Xavier Facility:[facility] Start: 10-15-2024 End: 10-15-2024 Emergency department patient visit MAURA MERCADO [employer]ER[employer] CUSTODY Work Phone: -Emergency Department Work Phone: Start: 08-07-2024 End: 08-10-2024 ambulatory TIFFANI ANDERSON [facility] Start: 08-06-2024 ambulatory Alysia Stewart NP Facilit y:[facility] Start: 08-02-2024 End: 08-02-2024 Emergency department patient visit DENIS MATTHEW [facility] Start: 05-11-2024 End: 05-11-2024 Office outpatient new 30 minutes Michele Leon Work Phone: [facility] Start: 05-07-2024 End: 05-07-2024 Encounter identifier Michele Leon Work Phone: [facility] Start: 04-17-2024 End: 07-17-2024 ambulatory MAURA MERCADO Facility:[facility] Start: 04-01-2024 End: 04-01-2024 ambulatory MAURA MERCADO Facility:[facility] Start: 03-31-2024 End: 03-31-2024 ambulatory JOVANI MORALES AVIATION PROJECT MANAGER~[id number] Facility:[facility] Start: 12-26-2023 End: 12-26-2023 Office outpatient new 45 minutes Pollo Weeks MD Work Phone: [facility] Cardiology Comment on above: Shortness of breath Start: 11-29-2023 End: 11-29-2023 ambulatory [employer]ODY-C Tosha Xavier [employer]ER[employer] CUSTODY Work Phone: [facility] Work Phone: Start: 11-29-2023 End: 11-29-2023 Patient encounter procedure [employer]-C Tosha Xavier [employer]ERIFF CUSTODY Work Phone: [facility] Work Phone: Start: 11-21-2023 End: 11-21-2023 ambulatory TOSHA XAVIER [facility] Start: 09-09-2023 End: 09-09-2023 ambulatory [employer]ODY-C Tosha Xavier [employer] CUSTODY Work Phone: [facility] Work Phone: Start: 09-09-2023 End: 09-09-2023 Patient encounter procedure [employer]ODY-C Tosha Xavier [employer]PUT[employer]ERIFF CUSTODY Work Phone: [facility]-Laboratory Work Phone: Start: 09-09-2023 End: 09-09-2023 Patient encounter procedure [employer]ODY-C Tosha Xavier [employer]PUT[employer] SHERIFF CUSTODY Work Phone: [facility] Work Phone: Start: 2023 End: 2023 Emergency department patient visit DE[employer]ER[employer] CUSTODY-C Tosha Xavier [employer]PUT[employer]ERIFF CUSTODY Work Phone: [facility]-Emergency Department Work Phone: Start: 08-12-2023 End: 08-12-2023 Emergency department patient visit DE[employer]ER[employer] CUSTODY-C Tosha Xavier [employer]PUT[employer] SHERIFF CUSTODY Work Phone: [facility]-Emergency Department Work Phone: Start: 05-01-2023 End: 05-01-2023 Patient encounter procedure [employer]-C Tosha Xavier DEPUT[employer] SHERIFF CUSTODY Work Phone: [facility] Work Phone: Start: 04-08-2023 Evaluation and manag ement of inpatient [facility] 3 Work Phone: Start: 04-08-2023 observation encounter [facility] Work Phone: Start: 04-07-2023 End: 04-08-2023 Emergency department patient visit [facility] Work Phone: Start: 04-07-2023 End: 04-07-2023 Emergency department patient visit TOSHA XAVIER [facility] Start: 10-16-2022 End: 10-16-2022 Subsequent hospital visit by physician Tosha Xavier SHELL SORTER Work Phone: [facility] Imaging Comment on above: Chest discomfort; Malaise Arrived Start: 06-15-2022 Non-patient / Non-visit [employer]-C Rodolfo Xavier DEPUT[employer] SHERIFF CUSTODY Work Phone: [facility] Start: 06-15-2022 End: 06-15-2022 ambulatory [employer]ER[employer] CUSTODY-C Tosha Xavier [employer]PUT[employer]ERIFF CUSTODY Work Phone: [facility] Work Phone: Start: 06-15-2022 End: 06-15-2022 Patient encounter procedure [employer] C[employer]ODY-C Tosha Xavier DEPUT[employer]ERIFF CUSTODY Work Phone: [facility]-Cardiovascula r Services Start: 05-28-2022 End: 05-28-2022 Patient encounter procedure [employer]ODY-C Tosha Xavier DEPUT[employer] SHERIFF CUSTODY Work Phone: [facility] Start: 05-08-2022 Non-patient / Non-visit [employer]-C A nna Purkey [employer]PUT[employer]ERIFF CUSTODY Work Phone: [facility] Start: 05-07-2022 Non-patient / Non-visit [employer]ODY-C A nna Purkey [employer]ER[employer] CUSTODY Work Phone: [facility] Start: 05-07-2022 Non-patient / Non-visit [employer]ODY-C A nna Purkey [employer]PUT[employer]ERIFF CUSTODY Work Phone: [facility] Start: 05-06-2022 End: 05-08-2022 Evaluation and management of inpatient [employer]-C Tosha Xavier DEPUT[employer] SHERIFF CUSTODY [facility] Start: 05-06-2022 Non-patient / Non-visit [employer] C[employer]ODY-C A nna Purkey DEPUT[employer] SHERIFF CUSTODY Work Phone: [facility] Start: 05-06-2022 Non-patient / Non-visit [employer]ODY-C A nna Purkey DEPUT[employer] SHERIFF CUSTODY Work Phone: [facility] Start: 05-05-2022 Evaluation and manag ement of inpatient [employer]-C Tosha Xavier DEPUT[employer] SHERIFF CUSTODY [facility] Start: 05-05-2022 observation encounter [employer]ODY-C Junie Xavier DEPUT[employer] SHERIFF CUSTODY Work Phone: [facility] Work Phone: Start: 05-05-2022 Non-patient / Non-visit [employer] C[employer]ODY-C A nna Purkey DEPUT[employer] SHERIFF CUSTODY Work Phone: [facility] Start: 04-04-2022 End: 04-04-2022 Subsequent hospital visit by physician Tosha Xavier SHELL SORTER Work Phone: [facility] Start: 03-30-2022 End: 03-30-2022 ambulatory DE[employer]ER[employer] CUSTODY-C Tosha Xavier DEPUT[employer] SHERIFF CUSTODY Work Phone: [facility] Work Phone: Start: 03-30-2022 End: 03-30-2022 Patient encounter procedure DE[employer]ER[employer] CUSTODY-C Tosha Xavier DEPUT[employer] SHERIFF CUSTODY Work Phone: [facility] Start: 03-20-2022 End: 03-20-2022 Subsequent hospital visit by physician Tosha Xavier SHELL SORTER Work Phone: [facility] Start: 03-07-2022 End: 03-07-2022 Patient encounter procedure [employer]ER[employer] CUSTODY-C Tosha Xavier DEPUT[employer] SHERIFF CUSTODY Work Phone: [facility] Start: 02-26-2022 Non-patient / Non-visit [employer]ODY-C Rodolfo Xavier DEPUT[employer] SHERIFF CUSTODY Work Phone: [facility] Start: 02-26-2022 End: 02-26-2022 Admission to same day surgery center [employer]ER[employer] CUSTODY-C Tosha Xavier DEPUT[employer] SHERIFF CUSTODY Work Phone: [facility]-[employer] Meter Repairer/Special Procedures Start: 02-20-2022 Non-patient / Non-visit [employer]ODY-C Rodolfo Xavier DEPUT[employer] SHERIFF CUSTODY Work Phone: [facility] Start: 02-20-2022 End: 02-20-2022 Patient encounter procedure DE[employer]ER[employer] CUSTODY-C Tosha Xavier DEPUT[employer] SHERIFF CUSTODY Work Phone: [facility]-Cardiovascula [facility] Services Start: 02-08-2022 End: 02-08-2022 Emergency department patient visit DEPUTY SHERIFF CUSTODY-C Tosha Xavier DEPUTY SHERIFF CUSTODY Work Phone: [facility]-Emergency Department Start: 12-13-2021 End: 12-13-2021 Patient encounter procedure DEPUT[employer]ER[employer] CUSTODY-C Tosha Xavier DEPUTY SHERIFF CUSTODY Work Phone: [facility]-Laboratory Start: 12-13-2021 End: 12-13-2021 Patient encounter procedure [employer]ER[employer] CUSTODY-Jaylene Xavier DEPUTY SHERIFF CUSTODY Work Phone: [facility] Start: 11-23-2021 Non-patient / Non-visit Dr. Niko Cast Work Phone: [facility] Start: 11-23-2021 Non-patient / Non-visit Dr. Niko Cast Work Phone: [facility] Start: 11-23-2021 Non-patient / Non-visit Dr. Niko Cast Work Phone: [facility] Start: 11-22-2021 Non-patient / Non-visit Dr. Niko Cast Work Phone: [facility] Start: 11-22-2021 End: 11-23-2021 Evaluation and management of inpatient Dr. All Cast [facility] Start: 11-22-2021 Non-patient / Non-visit Dr. Niko Cast Work Phone: [facility] Start: 11-10-2021 End: 11-10-[address] All Cast Work Phone: [facility] Start: 11-10-2021 Non-patient / Non-visit Dr. Niko Cast Work Phone: [facility] Start: 10-31-2021 Non-patient / Non-visit Dr. Niko Cast Work Phone: [facility] Start: 10-30-2021 Non-patient / Non-visit Dr. Niko Cast Work Phone: [facility] Start: 10-30-2021 End: 10-31-2021 Evaluation and management of inpatient Dr. All Cast [facility] Start: 10-06-2021 End: 10-06-[address] All Cast Work Phone: [facility] Start: 10-06-2021 End: 10-06-[address] All Cast Work Phone: [facility] Start: 09-11-2021 End: 09-11-2021 Subsequent hospital visit by physician Lucho Vo DO Work Phone: [facility] Imaging Comment on above: SOB (shortness of br eath); Chest pain, unspecified type; Anginal equivalent (HCC) Start: 08-22-2021 Transcribe Orders Tosha mtz SHELL SORTER Work Phone: [facility] Comment on above: Tricuspid valve insu fficiency, unspecified etiology (Primary Dx) Start: 02-14-2021 End: 02-14-2021 Subsequent hospital visit by physician Tosha Xavier CNP Work Phone: [facility] Comment on above: Pain in right hand Start: 02-13-2021 End: 02-13-2021 Subsequent hospital visit by physician Tosha Xavier CNP Work Phone: [facility] Start: 08-12-2020 End: 08-12-2020 Orders Only Alexia Figueredo Abdoul Work Phone: [facility] Start: 07-19-2020 End: 07-19-2020 Subsequent hospital visit by physician Tosha Xavier Work Phone: [facility] Start: 02-11-2020 End: 02-11-2020 Subsequent hospital visit by physician Vielka Nicholas Work Phone: [facility] Draw Center Comment on above: Subclinical hypothyr oidism Start: 05-20-2019 End: 05-20-2019 Subsequent hospital visit by physician Tosha Xavier Work Phone: [facility] Start: 05-20-2019 End: 05-20-2019 Subsequent hospital visit by physician Tosha Xavier Work Phone: [facility] PreAdmission Testing Comment on above: Arrived Start: 04-15-2019 End: 04-15-2019 Subsequent hospital visit by physician Tosha Xavier Work Phone: [facility] Start: 12-27-2017 End: 12-27-2017 Ambulatory DARNELL HILLMAN [facility] Start: 12-27-2017 End: 12-27-2017 Office/outpatient visit, new, level 3 Darnell Hillman Work Phone: [facility] Start: 11-20-2017 End: 11-21-2017 Ambulatory [facility] Start: 11-20-2017 End: 11-20-2017 Ambulatory [facility] Work Phone: [facility] Non-Invasive [facility] Procedures Date Procedure Procedure Detail Performing Clinician Start: 03-02-2025 Urine lambda light c andrés measurement Maura Mercado DEPUTY SHERIFF CUSTODY-C Work Phone: Start: 11-19-2024 Cerebral perfusion a [...] CT of head without contrast MAURA LOPEZORD DEPUT[employer] SHERIFF CUSTODY Work Phone: Start: 05-11-2024 End: 05-11-2024 Radex hand minimum 3 views Michele villafuerte PA-C Start: 05-06-2024 Thyrotropin [Units/v olume] in Serum or Plasma Brandie Boyd DO Work Phone: Start: 12-26-2023 Ecg routine ecg w/le ast 12 lds w/i&r Pollo Weeks MD Work Phone: Start: 12-16-2023 Thyrotropin [Units/v olume] in Serum or Plasma Pollo Weeks MD Work Phone: Start: 08-12-2023 Plain chest X-ray [employer]PUT[employer]ER[employer] CUSTODY-C Tosha Xavier [employer]PUT[employer] SHERIFF CUSTODY Work Phone: Start: 04-07-2023 Computed tomography of abdomen and pelvis with intravenous contrast Start: 04-07-2023 Urinalysis TOSHA Knight Comment on above: Result Comment: URIN ALYSIS Performed By: #### [id number] #### [facility],[address] [place] [address] Start: 10-16-2022 Ecg routine ecg w/le ast 12 lds trcg only w/o i&r Tosha Xavier SHELL SORTER Work Phone: Start: 10-16-2022 Radiologic exam ches t 2 views Tosha Xavier SHELL SORTER Work Phone: Start: 05-07-2022 Colonoscopy DEPUT[employer]ER[employer] CUSTODY-C Tosha Xavier DEPUT[employer] SHERIFF CUSTODY Work Phone: Start: 04-04-2022 CBC W Auto Different ial panel - Blood Tosha Nunez Morenita SHELL SORTER Work Phone: Start: 03-30-2022 Ultrasonography of abdomen [employer]ER[employer] CUSTODY-C Tosha Xavier DEPUT[employer] SHERIFF CUSTODY Work Phone: Start: 02-20-2022 Cardiovascular stres s test using pharmacologic stress agent [employer]PUT[employer]ER[employer] CUSTODY-C Tosha Xavier DEPUT[employer] SHERIFF CUSTODY Work Phone: Start: 02-08-2022 CT angiography of ch est with contrast DEPUT[employer] SHERIFF CUSTODY-C Tosha Xavier DEPUT[employer] SHERIFF CUSTODY Work Phone: Start: 02-08-2022 Plain chest X-ray [employer]PUT[employer]ER[employer] CUSTODY-Jaylene Xavier DEPUTY SHERIFF CUSTODY Work Phone: Start: 11-23-2021 End: 11-23-2021 Viral [...] 02-13-2021 GLOMERULAR FILTRATION RATE Tosha Nunez Morenita SHELL SORTER Work Phone: Start: 02-13-2021 Hepatic function panel Tosha Xavier SHELL SORTER Work Phone: Start: 02-13-2021 Renal function panel An luana Xavier SHELL SORTER Work Phone: Start: 07-19-2020 Assay of blood/uric [...] 02-11-2020 Assay of thyroid stimulating hormone tsh [facility] Work Phone: Start: 05-20-2019 XR Chest [...] 02-13-2013 Mammography Tosha knight Viral antigen assay DEPUT[employer] SHERIFF CUSTODY-C Junie Xavier DEPUT[employer] SHERIFF CUSTODY Work Phone: Plan of Treatment Date Care Activity Detail Author Start: 11-19-2029 Lipid panel Lipid Panel [facility] Start: 01-30-2029 Administration of diphtheria + tetanus + acellular pertussis vaccine DTAP/TDAP/TD VACCINE (2 - Tdap) [facility] Start: 01-30-2029 Diphtheria + pertussis + tetanus vaccine (product) DTAP/TDAP/TD VACCINE (2 - Tdap) [facility] Start: 01-30-2029 Tetanus, diphtheria and acellular pertussis vaccination TDAP/TD ADULT [facility] Start: 12-27-2025 End: 12-27-2025 Patient encounter procedure 12/27/2025 1:20 PM EDT Office Visit [address] [id number] Pollo Weeks MD [address] [place] [id number] [facility] Start: 10-30-2025 Colonoscopy COLON CANCER SCREENING [address] [facility] Start: 05-06-2025 Thyroid stimulating hormone measurement TSH Level [facility] Start: 04-28-2025 [facility] Start: 04-14-2025 [facility] Start: 03-29-2025 Influenza vaccination Influenza Vaccine (Season Ended) [facility] Start: 02-09-2025 Vitamin B6 measurement [facility] Start: 12-15-2024 Thyroid stimulating hormone measurement TSH Level [facility] Start: 12-10-2024 End: 12-10-2024 Patient encounter procedure [facility] Start: 10-15-2024 [facility] Start: 10-15-2024 Simple repair f/e/e/n/l/m 2.5cm/< RPR F/E/E/N/L/M 2.5 CM/< [facility] Start: 07-29-2024 Medicare Advantage Annual Wellness Visit Medicare Advantage Annual Wellness Visit [facility] Start: 05-11-2024 [facility] Start: 03-29-2024 COVID-19 Vaccine ( season) COVID-19 Vaccine () [facility] Start: 2023 Blood chemistry [facility] Start: 2023 End: 2023 [facility] Start: 08-12-2023 [facility] Start: 08-12-2023 [facility] Start: 07-29-2023 Medicare Advantage Annual Wellness Visit Medicare Advantage Annual Wellness Visit [facility] Start: 04-09-2023 End: 04-09-2023 [facility] Start: 04-09-2023 Blood chemistry [facility] Start: 04-08-2023 End: 04-09-2023 [facility] Start: 04-08-2023 Application of intermittent pneumatic compression device [facility] Start: 04-08-2023 Following clinical pathway protocol [facility] Start: 04-08-2023 Assessment of risk of venous thromboembolism [facility] Start: 04-08-2023 Insertion of catheter into peripheral vein [facility] Start: 04-08-2023 Oxygen therapy [facility] Start: 04-08-2023 Providing care according to standard [facility] Start: 04-08-2023 Provision of activity privileges [facility] Start: 04-08-2023 Referral to gastroenterology service [facility] Start: 04-08-2023 Verification routine [facility] Start: 04-08-2023 Admission procedure [facility] Start: 04-04-2023 Thyroid stimulating hormone measurement TSH [facility] Start: 05-08-2022 Patient discharge [facility] Work Phone: Start: 05-08-2022 COVID-19 VACCINE (5 - Booster for Moderna series) COVID-19 VACCINE (5 - Booster for Moderna series) [facility] Start: 05-07-2022 Administration of blood product [facility] Work Phone: Start: 05-07-2022 Transfusion of red blood cells [facility] Work Phone: Start: 05-06-2022 Admission procedure [facility] Work Phone: Start: 05-06-2022 [facility] Work Phone: Start: 05-06-2022 Catheterization of vein [facility] Work Phone: Start: 05-05-2022 Application of intermittent pneumatic compression device [facility] Work Phone: Start: 05-05-2022 End: 05-05-2022 Following clinical pathway protocol [facility] Work Phone: Start: 05-05-2022 Assessment of risk of venous thromboembolism [facility] Work Phone: Start: 05-05-2022 Fall prevention [facility] Work Phone: Start: 05-05-2022 Insertion of catheter into peripheral vein [facility] Work Phone: Start: 05-05-2022 Introduction of urinary catheter [facility] Work Phone: Start: 05-05-2022 Measuring intake and output [facility] Work Phone: Start: 05-05-2022 Oxygen therapy [facility] Work Phone: Start: 05-05-2022 Providing care according to standard [facility] Work Phone: Start: 05-05-2022 Provision of activity privileges [facility] Work Phone: Start: 05-05-2022 Referral to gastroenterology service [facility] Work Phone: Start: 05-05-2022 Referral to service [facility] Work Phone: Start: 05-05-2022 [facility] Work Phone: Start: 05-05-2022 Admission procedure [facility] Work Phone: Start: 05-05-2022 Patient referral to dietitian [facility] Work Phone: Start: 03-29-2022 Influenza vaccination given INFLUENZA VACCINE (#1) [facility] Start: 02-08-2022 Troponin I measurement [facility] Work Phone: Start: 02-08-2022 [facility] Work Phone: Start: 11-23-2021 Patient discharge [facility] Work Phone: Start: 11-22-2021 [facility] Work Phone: Start: 11-22-2021 Catheterization of vein [facility] Work Phone: Start: 11-22-2021 Notification of physician [facility] Work Phone: Start: 11-22-2021 Oxygen therapy [facility] Work Phone: Start: 11-22-2021 Application of intermittent pneumatic compression device [facility] Work Phone: Start: 11-22-2021 Assessment of risk of venous thromboembolism [facility] Work Phone: Start: 11-22-2021 Insertion of catheter into peripheral vein [facility] Work Phone: Start: 11-22-2021 Measuring intake and output [facility] Work Phone: Start: 11-22-2021 Providing care according to standard [facility] Work Phone: Start: 11-22-2021 Referral to professor of graphic design [facility] Work Phone: Start: 11-22-2021 Referral to gastroenterology service [facility] Work Phone: Start: 11-22-2021 Referral to occupational therapist [facility] Work Phone: Start: 11-22-2021 Referral to service [facility] Work Phone: Start: 11-22-2021 [facility] Work Phone: Start: 11-22-2021 Following clinical pathway protocol [facility] Work Phone: Start: 11-22-2021 Admission procedure [facility] Work Phone: Start: 11-22-2021 Colonoscopy flx dx w/collj spec when pfrmd DIAGNOSTIC COLONOSCOPY [facility] Work Phone: Start: 11-22-2021 Esophagogastroduodenoscopy transoral diagnostic EGD DIAGNOSTIC BRUSH WASH [facility] Work Phone: Start: 10-31-2021 Patient discharge [facility] Work Phone: Start: 10-30-2021 Patient referral [facility] Work Phone: Start: 10-30-2021 Cardiac monitoring [facility] Work Phone: Start: 10-30-2021 Cardiac rehabilitation - phase 1 [facility] Work Phone: Start: 10-30-2021 Notification of physician [facility] Work Phone: Start: 10-30-2021 Oxygen therapy [facility] Work Phone: Start: 10-30-2021 Patient discharge [facility] Work Phone: Start: 10-30-2021 Systemic arterial pressure monitoring [facility] Work Phone: Start: 10-30-2021 Taking patient vital signs [facility] Work Phone: Start: 10-30-2021 Vascular disease risk assessment [facility] Work Phone: Start: 10-30-2021 Vital signs measurements [facility] Work Phone: Start: 10-30-2021 [facility] Work Phone: Start: 10-30-2021 Admission procedure [facility] Work Phone: Start: 10-30-2021 Insertion of catheter into peripheral vein [facility] Work Phone: Start: 10-30-2021 Measuring intake and output [facility] Work Phone: Start: 10-30-2021 Providing care according to standard [facility] Work Phone: Start: 10-30-2021 [facility] Work Phone: Start: 10-11-2021 End: 10-11-2021 Patient encounter procedure 10/11/2021 Office Visit Cardiology [facility] Start: 03-29-2021 Influenza vaccination Sequential Influenza Vaccine (#1) [facility] Start: 03-29-2021 Influenza vaccination given [facility] Start: 02-12-2021 COVID-19 VACCINE (3 - Booster for Moderna series) COVID-19 VACCINE (3 - Booster for Moderna series) [facility] Start: 02-10-2021 Thyroid stimulating hormone measurement TSH [facility] Start: 02-10-2021 TSH Qn TSH [facility] Start: 01-23-2021 End: 01-23-2021 Office Visit 01/23/2021 Office Visit Endocrinology Vielka Nicholas MD [address] [place] [address] [phone] [facility] Start: 01-11-2021 End: 01-11-2021 Office Visit 01/11/2021 Office Visit Endocrinology iVelka Nicholas MD [address] [place] [address] [phone] [facility] Start: 05-20-2020 TSH Qn TSH [facility] Start: 03-29-2020 Influenza vaccination given [facility] Start: 02-24-2020 End: 02-24-2020 Office Visit 02/24/2020 Office Visit Endocrinology Vielka Nicholas MD [address] [place] [address] [phone] [facility] Start: 02-19-2020 TSH Qn TSH [facility] Start: 03-29-2019 Influenza vaccination given INFLUENZA VACCINE (#1) [facility] Start: 01-31-2019 DTaP/Tdap/Td Vaccines (1 - Tdap) DTaP/Tdap/Td Vaccines (1 - Tdap) [facility] Start: 03-29-2018 Influenza vaccination SEQUENTIAL INFLUENZA VACCINE (Season Ended) [facility] Start: 03-29-2017 Influenza vaccination SEQUENTIAL INFLUENZA VACCINE (#1) [facility] Start: 02-13-2014 Screening mammography MAMMOGRAM [facility] Start: 2002 Fall risk assessment [facility] Start: 2002 Glaucoma screening GLAUCOMA/EYE EXAM AGE 65+ [facility] Start: 2002 Osteoporosis risk assessment done BONE DENSITY SCREENING [facility] Start: 2002 Pneumococcal polysaccharide vaccine (product) PNEUMONIA VACCINE (PCV13 PPSV23) (1 of 2 - PCV13) [facility] Start: 2002 Pneumococcal vaccination PNEUMOCOCCAL VACCINE AGE 65+ (1 of 2 - PCV13) [facility] Start: 2002 Pneumococcal Vaccine: Age 65+ (1 of 1 - PPSV23) Pneumococcal Vaccine: Age 65+ (1 of 1 - PPSV23) [facility] Start: 1997 Hepatitis B Vaccines (1 of 3 - Risk 3-dose series) Hepatitis B Vaccines (1 of 3 - Risk 3-dose series) [facility] Start: 1997 Zoster vacc, sc [facility] Start: 1987 Administration of herpes zoster vaccine Zoster Vaccines (1 of 2) [facility] Start: 1987 SHINGLES 2 DOSE (1 of 2) SHINGLES 2 DOSE (1 of 2) [facility] Start: 1987 SHINGLES VACCINE (1 of 2) SHINGLES VACCINE (1 of 2) [facility] Start: 1987 Zoster vaccine hzv live for subcutaneous use ZOSTER (SHINGLES) VACCINE (1 of 2) [facility] Start: 1987 Zoster Vaccines (1 of 2) Zoster Vaccines (1 of 2) [facility] Start: 1956 Hepatitis A Vaccines (1 of 2 - Risk 2-dose series) Hepatitis A Vaccines (1 of 2 - Risk 2-dose series) [facility] Start: 1955 ANNUAL WELLNESS VISIT ANNUAL WELLNESS VISIT [facility] Start: 1955 WELLNESS ANNUAL VISIT WELLNESS ANNUAL VISIT [facility] Start: 1949 Adolescent depression screening assessment [facility] Start: 1949 Adult depression screening assessment [facility] Start: 1949 Depression screening using PHQ-9 (Patient Health Questionnaire 9) score [facility] Start: 1942 COVID-19 Vaccine (1) COVID-19 Vaccine (1) [facility] Start: 1940 History and physical examination, annual for health maintenance Wellness Visit [facility] Start: 1937 Fall risk assessment Falls Risk Assessment [facility] Start: 1937 Lipid panel Lipid Panel [facility] Start: 1937 Screening for osteoporosis [facility] Start: 1937 Tetanus vaccination [facility] 12 lead ECG EKG 12 lead ECG Routine 10/16/2022 5:47 PM EDT [facility] Work Phone: Anion gap measurement [facility] End: 03-20-2022 Bilirubin.indirect [Mass/volume] in Serum or Plasma [facility] Comment on above: One Time for 1 Occurrences starting 02/27 until 03/20/2022 End: 04-04-2022 Bilirubin.indirect [Mass/volume] in Serum or Plasma [facility] Comment on above: One Time for 1 Occurrences starting 01/2022 until 04/04/2022 BUN/Creatinine ratio [facility] Calcium [Mass/volume ] in Serum or Plasma [facility] Carbon dioxide, tota l [Moles/volume] in Serum or Plasma [facility] End: 03-20-2022 CBC W Auto Differential panel - Blood [facility] Work Phone: Comment on above: One Time for 1 Occurrences starting 02/27 until 03/20/2022 Chloride [Moles/volu me] in Serum or Plasma [facility] End: 03-20-2022 Comprehensive metabolic panel [facility] Comment on above: One Time for 1 Occurrences starting 02/27 until 03/20/2022 End: 04-04-2022 Comprehensive metabolic panel [facility] Comment on above: One Time for 1 Occurrences starting 01/2022 until 04/04/2022 Creatinine [Moles/vo lume] in Serum or Plasma [facility] End: 03-20-2022 Cyanocobalamin vitamin b-12 [facility] Comment on above: One Time for 1 Occurrences starting 02/27 until 03/20/2022 End: 12-25-2018 ECG 12 Lead ECG 12 Lead Routine Palpitations 24 Occurrences starting 12/25/2017 until 12/25/2018, 1 completed [facility] End: 11-18-2024 ECG 12 lead if not done in the ED ECG 12 lead if not done in the ED CV ECG Routine Once for 1 Occurrences starting 11/18/2024 until 11/18/2024 [facility] Work Phone: Comment on above: Once for 1 Occurrences starting 11/19/19 until 11/18/2024 End: 03-20-2022 Ferritin [Mass/volume] in Serum or Plasma [facility] Comment on above: One Time for 1 Occurrences starting 02/27 until 03/20/2022 End: 03-20-2022 Folate [facility] [employer] [facility] Comment on above: One Time for 1 Occurrences starting 02/27 until 03/20/2022 End: 03-20-2022 GLOMERULAR FILTRATION RATE [facility] Comment on above: One Time for 1 Occurrences starting 02/27 until 03/20/2022 End: 04-04-2022 GLOMERULAR FILTRATION RATE [facility] Comment on above: One Time for 1 Occurrences starting 01/2022 until 04/04/2022 Glucose [Mass/volume ] in Serum or Plasma [facility] Hematocrit [Volume F raction] of Blood [facility] Hematocrit [Volume F raction] of Blood [facility] Hemoglobin [Mass/volume] in Blood [facility] Hemoglobin [Mass/volume] in Blood [facility] End: 03-20-[address] [facility] Comment on above: One Time for 1 Occurrences starting 02/27 until 03/20/2022 End: 03-20-2022 Iron [Mass/volume] in Serum or Plasma [facility] Comment on above: One Time for 1 Occurrences starting 02/27 until 03/20/2022 End: 04-04-2022 Iron [Mass/volume] in Serum or Plasma [facility] Work Phone: Comment on above: One Time for 1 Occurrences starting 01/2022 until 04/04/2022 Measurement of renal function [facility] End: 02-13-2021 Nuclear Ab [Titer] in Serum by Immunofluorescence [facility] Routine One Time for 1 Occurrences starting 02/13/2021 until 02/13/[address] [facility] Comment on above: One Time for 1 Occurrences starting 01/26 until 02/13/2021 End: 04-15-2019 Nuclear Ab IF (S) [Titer] [facility] Routine One Time for 1 Occurrences starting 04/15/2019 until 04/15/[address] [facility] Comment on above: One Time for 1 Occurrences starting 03/29 until 04/15/2019 Nuclear Ab IF (S) [Titer] [facility] End: 07-19-2020 Nuclear Ab IF (S) [Titer] [facility] Routine One Time for 1 Occurrences starting 07/19/2020 until 07/19/[address] [facility] Comment on above: One Time for 1 Occurrences starting 06/29 until 07/19/2020 Patient Education [facility] Work Phone: Patient referral [facility] Work Phone: End: 04-04-2022 Phosphate [Mass/volume] in Serum or Plasma [facility] Comment on above: One Time for 1 Occurrences starting 01/2022 until 04/04/2022 Potassium [Moles/vol ume] in Serum or Plasma [facility] End: 03-20-[address] [facility] Comment on above: One Time for 1 Occurrences starting 02/27 until 03/20/2022 Sodium [Moles/volume ] in Serum or Plasma [facility] End: 04-04-2022 Thyrotropin [Units/volume] in Serum or Plasma [facility] Comment on above: One Time for 1 Occurrences starting 01/2022 until 04/04/2022 End: 03-20-2022 TOTAL IRON BINDING CAPACITY [facility] Comment on above: One Time for 1 Occurrences starting 02/27 until 03/20/2022 Troponin I measurement [facility] Work Phone: Urea nitrogen [Mass/ volume] in Serum or Plasma [facility] End: 02-14-2021 XR Hand RT Min 3 View (Routine) XR Hand RT Min 3 View (Routine) Imaging Routine Pain in right hand 1 Occurrences starting 02/14/2021 until 02/14/[address] [facility] Comment on above: 1 Occurrences starting 02/14/2021 until 02/14/2021 XR Hand RT Min 3 View (Routine) XR Hand RT Min 3 View (Routine) Imaging Routine Pain in right hand 02/14/2021 2:51 PM EDT [facility] Immunizations Immunization Date Immunization Notes Care Provider Edgar mccallum 04-14-2023 influenza virus vacc ine, unspecified formulation Brandie Boyd DO Work Phone: [facility] 05-22-2022 Influenza, injectabl e, Madin Kathy Canine Kidney, preservative free, quadrivalent [employer]PUT[employer]ER[employer]ODY-C Tosha Xavier DEPUTY SHERIFF CUSTODY Work Phone: [facility] 03-13-2022 Covid (Moderna) [employer]ER[employer]-C Tosha bolanosey DEPUTY SHERIFF CUSTODY Work Phone: [facility] 09-20-2021 Covid (Moderna) [employer]ER[employer] CUSTODY-C Tosha bolanosey DEPUTY SHERIFF CUSTODY Work Phone: [facility] 09-15-2020 Moderna Covid-19 Vaccine Junie Xavier SHELL SORTER Work Phone: [employer] [facility] Work Phone: 2020 Moderna Covid-19 Vaccine Junie Xavier SHELL SORTER Work Phone: [facility] Work Phone: 01-30-2019 tetanus and diphther ia toxoids, adsorbed, preservative free, for adult use (2 Lf of tetanus toxoid and 2 Lf of diphtheria toxoid) [employer]ER[employer]-C Tosha Xavier DEPUTY SHERIFF CUSTODY Work Phone: [facility] 01-30-2019 tetanus and diphther ia toxoids, adsorbed, preservative free, for adult use (5 Lf of tetanus toxoid and 2 Lf of diphtheria toxoid) Tosha Xavier [facility] 04-02-2017 Influenza, high dose seasonal MAURA MERCADO DEPUTY SHERIFF CUSTODY Work Phone: [facility] 04-02-2017 influenza, high dose seasonal, preservative-free [employer]ER[employer] Tosha Xavier DEPUTY SHERIFF CUSTODY Work Phone: [facility] 04-02-2017 pneumococcal polysaccharide vaccine, 23 valent [employer] Tosha Purkey [employer]PUT[employer] SHERIFF CUSTODY Work Phone: [facility] 04-02-2017 influenza virus vacc ine, unspecified formulation Tosha Razkey [facility] 07-12-2015 influenza, injectabl e, quadrivalent, preservative free [employer]ER[employer]-C Tosha Purkey DEPUTY SHERIFF CUSTODY Work Phone: [facility] 07-12-2015 pneumococcal conjuga te vaccine, 13 valent [employer]-C Tosha Purkey DEPUTY SHERIFF CUSTODY Work Phone: [facility] 05-03-2009 influenza, injectabl e, quadrivalent, preservative free [employer] Tosha Purkey [employer]PUT[employer] SHERIFF CUSTODY Work Phone: [facility] Payers Date Payer Category Payer Self-pay [id number] 2023 Medicare HMO ANTHEM MEDICARE ADVANTAGE [id number] 2021 Unknown [facility] [id number] 2021-Present [phone] [address] [place] [address] [id number] 2020 Medicare ANTHEM MEDICARE ADVANTAGE ANTHEM HMO MEDICARE SR ADVANTAGE [id number] 2020-Present [phone] [address] [address] [place], [place] [address] Medicare [id number] 2020 Medicare [id number] 2018 Medicare AETNA MEDICARE A DVANTAGE AETNA MEDICARE ADVANTAGE O [id number] 2018-Present [phone] [address] [place] [address] Medicare [id number] 2018 Medicare AETNA MEDICARE A DVANTAGE AETNA MEDICARE ADVANTAGE HMO [id number] 2018-Present [phone] [address] [place] [address] Medicare [id number] 2017 Medicare [id number] 2017 Medicare A[place] AETNA MEDICARE PLAN (PPO) [id number] 2017-Present [id number] 1959 Unknown [id number] 1937 Unknown [id number] .2.651 1937 Unknown [id number] 2.16.840.1.652344.3.579 .2.419 1937 Unknown [id number] 2.16.840.1.725024.3.579 .2.419 1937 Unknown [id number] 2.16.840.1.903547.3.579 .2.419 1937 Unknown [id number] 2.16.840.1.798348.3.579 .2.651 1937 Unknown [id number] 2.16.840.1.707608.3.579 .2.651 1937 Unknown [id number] 2.16.840.1.395800.3.579 .2.651 Private Health Insurance MEB [id number] Unknown [id number] 2.16.840.1.593251.3.579 .2.528 Unknown [id number] 2.16.840.1.198492.3.579 .2.462 Unknown [id number] 2.16.840.1.014860.3.579 .2.462 Unknown [id number] 2.16.840.1.275670.3.579 .2.462 Unknown [id number] 2.16.840.1.783107.3.579 .2.462 Unknown [id number] 2.16.840.1.413037.3.579 .2.462 Unknown [id number] 2.16.840.1.447049.3.579 .2.462 Unknown [id number] 2.16.840.1.303325.3.579 .2.462 Unknown [id number] 2.16.840.1.749912.3.579 .2.462 Unknown [id number] 2.16.840.1.083581.3.579 .2.462 Unknown [id number] 2.16840.1.354888.3.579 .2.462 Unknown [id number] 2.16840.1.430408.3.579 .2.462 Unknown [id number] .2.462 Social History Date Type Detail Facility Start: 12-27-2017 End: 10-15-2024 Tobacco smoking status CTIS Never smoker [facility] Start: 1935 Sex Assigned At Not on file O hiMOeal Start: 02-18-2019 End: 08-30-2021 Alcohol intake Current non-drinker of alcohol (finding) [facility] Start: 01-12-2020 End: 12-26-2023 Tobacco use and exposure Never used [facility] Exposure to SARS-CoV-2 (event) Not sure [facility] Start: 02-18-2019 End: 11-18-2024 Alcohol intake No [facility] Start: 1935 [facility] Start: 10-30-2021 End: 09-09-2023 Tobacco smoking status NHIS Unknown if ever smoked [facility] Start: 12-26-2023 Tobacco smoking status CTIS Ex-smoker [facility] History of tobacco use Current smoker [facility] History of tobacco use Cigarette Smoker [facility] Start: 12-26-2023 End: 12-24-2024 Alcohol intake Lifetime non-drinker (finding) [facility] Start: 12-26-2023 End: 11-18-2024 History of Social function [facility] Start: 06-20-2020 Sexual Orientation Straight or heterosexual [facility] Start: 05-11-2024 Alcohol intake Alcohol Use Details [facility] Start: 05-11-2024 Tobacco use and exposure Non-Smoking Tobacco Use Details [facility] Start: 12-17-2023 End: 10-15-2024 Sex Female (finding) [facility] How often do you nee d to have someone help you when you read instructions, pamphlets, or other written material from your doctor or pharmacy [SILS] Never [facility] Has the electric, gas, oil, or water company threatened to shut off services in your home in past 12Mo No [facility] Are you now , , , , never or living with a partner? [facility] How often to you hav e a drink containing alcohol? Never [facility] Do you feel stress - tense, restless, nervous, or anxious, or unable to sleep at night because your mind is troubled all the time - these days [OSQ] Not at all [facility] (I/We) worried whether (my/our) food would run out before (I/we) got money to buy more. Never true [facility] NEGATED: Highlighted rowStart: 05-11-2024 Tobacco smoking status NHIS Never smoker [facility] Medical Equipment Procedure Code Equipment Code Equipment Origin al Text Equipment Identifier Dates ([id number]) Drug-eluting coronary artery stent, bioabsorbable-polyme r-coated ()[id number] FDA Start: 10-30-2021 ([id number]) Drug-eluting coronary artery stent, bioabsorbable-polyme r-coated ()[id number] FDA Start: 10-30-2021 ([id number]) Wound hydrogel dressing, non-antimicrobial ()[id number] FDA Start: 02-26-2022 Goals Date Patient Goal Desired Activity /State Personal health goal Functional Status Date Assessment Result Facility 05-11-2024 Pain severity - 0-10 verbal numeric rating [Score] - Reported 5/10 [facility] 05-08-2022 Functional status Ambulates [facility] Work Phone: 05-08-2022 Functional status Ambulates [facility] Work Phone: 11-23-2021 Functional status Ambulates [facility] Work Phone: 10-31-2021 Functional status Ambulates;Chair [facility] Work Phone: Mental Status Date Assessment Result Facility 2023 Cognitive function Awake;Alert;A ppropriate;Follow s Commands [facility] Work Phone: 08-12-2023 Cognitive function Level Of Cons ciousness Awake;Alert;Appropriate;Follow s Commands [facility] Work Phone: 04-07-2023 Cognitive function Level Of Cons ciousness Awake;Alert;Appropriate;Follow s Commands [facility] Work Phone: 05-08-2022 Cognitive function Voice/Name [facility] Work Phone: 05-08-2022 Cognitive function Voice/Name [facility] Work Phone: 02-08-2022 Cognitive function Voice/Name [facility] Work Phone: 11-23-2021 Cognitive function Voice/Name [facility] Work Phone: 11-23-2021 Cognitive function Appropriate;Cooperativ e [facility] Work Phone: 10-31-2021 Cognitive function Voice/Name [facility] Work Phone: Clinical Notes 09-11-2021 to 04-14-2025 Note Date & Type Note Facility 04-14-2025 Procedure note [facility] 02-09-2025 Evaluation note Diagnosis Onset Date Resolution Carpal tunnel syndrome of left wrist acute February 09, 2025 8:54am Neuropathy of right lower extremity acute February 09, 2025 8:54am Polyneuropathy acute February 09, 2025 8:54am [facility] Work Phone: 1(248) 472-579907-15-2025 Evaluation note* Diagnosis Onset Date Resolution Status Admit Date Carpal tunnel syndrome of le ft wrist acute February 09, 2025 8:54am Neuropathy of right lower extremity acute February 09, 2025 8:54am Polyneuropathy acute February 09, 2025 8:54am Carpal tunnel syndrome of le ft wrist acute May 04 10:10am Neuropathy of right lower extremity acute May 04 10:10am Polyneuropathy acute April 10:10am Right foot drop acute May 042024 10:10am [facility] Work Phone: 1(812) 267-228505-29-2025 History of Present illness Narrative* Pollo Weeks MD - 12/24/2024 1:20 PM EDT Images from the original note were not included. [facility] [address] [address] Dept: [phone] Dept Loc: [phone] DATE of SERVICE:12/24/24 TIME of SERVICE: 1:59 [...] Not needed Focused cardiac ultrasound: Not needed Packaging Line Attendant present for focused cardiac ultrasound: Not applicable [...] breakfast)., Disp: , Rfl: documented in this [facility]04-24-2025 Nurse Note* Indigo Craft RN - 11/19/2024 5:11 PM EDT IV's removed. Telemetry removed. [facility] OK [facility] home[id number] Plan of care note* Care Plan - [...] Maintained or Improved 11/19/2024 1711 by Indigo Craft RN Outcome: [...] maintained or improved 11/19/2024 1711 by Indigo Craft RN Outcome: Completed 11/19/2024 1600 by Indigo Craft RN Outcome: Adequate for Discharge 11/19/2024 1448 by Indigo Craft RN Outcome: Progressing 11/19/2024 1122 by Indigo Craft RN Outcome: Progressing Problem: Neurological Deficit Goal: Neurological status is stable or improving 11/19/2024 1711 by Indigo Craft, CUONG Outcome: [...] Problem Interventions Goal: Assess Nutritional Intake 11/19/2024 171 by Indigo Craft RN Outcome: Completed 11/19/2024 1600 by Indigo Craft RN Outcome: Adequate for Discharge [facility]55-16-5503 Miscellaneous Notes* Care Plan - Indigo Craft RN - 11/19/2024 5:11 PM EDT Problem: Knowledge Deficit Goal: Patient/family/caregiver demonstrates understanding of disease process, treatment plan, medications, and discharge instructions 11/19/2024 171 by Indigo Craft RN Outcome: Completed 11/19/2024 1600 by Indigo Craft RN Outcome: Adequate for Discharge 11/19/2024 1448 by Indigo Craft RN Outcome: Progressing 11/19/2024 1122 by Indigo Craft RN Outcome: Progressing Problem: Potential for Compromised Skin Integrity Goal: Skin Integrity is Maintained or Improved 11/19/2024 1711 by Indigo Craft RN Outcome: [...] RN Outcome: Progressing 11/19/2024 1122 by Indigo Cratf, RN Outcome: Progressing Problem: Urinary Incontinence Goal: [...] RN Outcome: Progressing 11/19/2024 1122 by Indigo Crfat RN Outcome: Progressing Goal: Nutritional status is [...] - DO NOT do CPR, intubation] [_] [DNR-DAIRY SUPPLIES SALES REPRESENTATIVE - Comfort care only] [_] DNR form [...] with patient and/or family/surrogate. Berry Ott MD [facility] 11/18/2024, 5:02 PM documented in this [facility]04-24-2025 Nurse Note* Indigo Craft RN - 11/19/2024 5:11 PM EDT IV's removed. Telemetry removed. Pt OK for discharge home. documented in this [place] [id number] Consult note* Alonso Renteria MD - 11/19/2024 4:29 PM EDTAssociated Order(s): IP CONSULT TO CARDIOLOGY See consult note 11/19 at 8:[address] Morales as cardiology consult note [facility] Phone: [phone]) 700-998104-24-2025 Consult note* Alonso Renteria MD - 11/19/2024 4:29 PM EDTAssociated Order(s): IP CONSULT TO CARDIOLOGY See consult note 11/19 at 8:[address] Morales as cardiology consult note * Deidre Borges MD - 11/19/2024 10:13 AM EDTAssociated Order(s): IP CONSULT TO NEUROLOGY INITIAL CONSULT NOTE. STROKE SERVICE Patient Name: Brandie Kiser Patient : 1935 Acct: [id number] Date of Admission: 11/18/2024 Room/Bed: [facility] A PCP: KAELA Campos CNP History of Present Ilness: 89 y.o. female with the chief Complaint of: Unsteady walking, dizziness. 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 [...] Levoxyl) tablet 25 mcg, 25 mcg, Oral, [facility], Berry Ott MD, 25 mcgat 11/19/24623 [Held by provider] metoprolol succinate XL (Toprol-XL) 24 hr tablet 12.5 mg, 12.5 mg, Oral, Daily, Berry Ott MD ondansetron ODT (Zofran-ODT) disintegrating tablet 4 mg, 4 mg, Oral, q8h PRN OR ondansetron (Zofran) injection 4 mg, 4 mg, IntraVENous, q6h PRN, Berry Ott MD pantoprazole (ProtoNix) EC tablet 40 mg, 40 mg, Oral, [facility] AC, Berry Ott MD, 40 mg at [...] 392 ms QTC Interval 457 ms P Ll[place] 56 degrees QRS [place] 23 degrees T Wave [place] 0 degrees CO Interval 140 ms Basic metabolic panel Collection [...] BILITOT 1.2* Stroke Specific: Lipids: Recent Labs 11/19/24438 CHOL 111 TRIG 110 HDL 41* Radiology [...] EDTAssociated Order(s): IP CONSULT TO CASE MANAGEMENT [facility] Cardiology /Electrophysiology Consult Note Reason for Consult/Chief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 08/24/21 Help Desk Assistant Relationship Specialty Start Date End Date Tosha Xavier, SHELL [address] [place] [address] PCP - General 07/31/17 Efren Atwood MD [address] [address] Cardiology 08/26/13 Vielka Nicholas MD [address] [facility] [address] [place] [address] Consulting Physician Endocrinology 02/05/17 Bret Kirby MD [address] [place] [address] Cardiothoracic Surgery 08/24/21 Team Status: Active Member Role Status Dates Tosha Xavier NP, DEPUTY SHERIFF CUSTODY-C Primary Care Provider Active Dr. Olinda Kramer MD Emergency Provider Active Dr. Logan Haas MD Admit Provider, Attending Pro vider Active Dr. Umberto Garcia , DO Other Provider Active Team Status: Inactive Member Role Status Dates Tosha Xavier DEPUTY SHERIFF CUSTODY, DEPUTY SHERIFF CUSTODY-C Primary Care Provider Active Dr. Denis Caballero , Emergency Provider Active Team Status: Inactive Member Role Status Dates Tosha Xavier NP, DEPUTY SHERIFF CUSTODY-C Primary Care Provider Active Dr. Ellyn Nieves , DO Attending Provider, Emergency Pro vider Active Team Status: Inactive Member Role Status Dates Tosha Xavier DEPUTY SHERIFF CUSTODY, DEPUTY SHERIFF CUSTODY-C Primary Care Provider Active Dr. Lonnie Owens MD Emergency Provider Active Team Status: Inactive Member Role Status Dates Tosha Xavier NP, DEPUTY SHERIFF CUSTODY-C Primary Care Provider, Referring Provider Active Pat Hansen DEPUTY SHERIFF CUSTODY, DEPUTY SHERIFF CUSTODY-C Attending Provider Active Team Status: Inactive Member Role Status Dates Tosha Xavier DEPUTY SHERIFF CUSTODY, DEPUTY SHERIFF CUSTODY-C Primary Care Provider Active Pat Hansen DEPUTY SHERIFF CUSTODY, DEPUTY SHERIFF CUSTODY-C Attending Provider, Referring P vivien Active Team Status: Inactive Member Role Status Dates Tosha Xavier DEPUTY SHERIFF CUSTODY, DEPUTY SHERIFF CUSTODY-C Primary Care Provider Active Dr. Lonnie Owens MD Attending Provider, Emergency Provider Active Help Desk Assistant Relationship Specialty Start Date End Date RazsaminaJunieKAELA downing CNP [address] [place] [id number] PCP - General 12/18/23 Name Effective Dates (start - stop) Status Members No Information Team Status: Active Member Role Status Dates MAURA MERCADO Primary Care Provider Active Team Status: Inactive Member Role Status Dates JESS YODER NP Primary Care Provider Active Start: October 15, 2024 End: October 15, 2024 Dr. Souleymane Keys MD Emergency Provider Active Sta rt: October 15, 2024 End: October 15, 2024 Help Desk Assistant Relationship Specialty Start Date End Date Tosha Xavier APRN - CNP [address] [place] [address] PCP - General 12/18/23 Help Desk Assistant Relationship Specialty Start Date End Date Maura Mercado [address] [place] [address] 07/29/24 Team Status: Active Member Role/Relationship Status Dates Maura Mercado NP-C Primary Care Provider Active Team Status: Inactive Member Role/Relationship Status Dates JESS YODER NP Primary Care Provider Active Start: October 15, 2024 End: October 15, 2024 Dr. Souleymane Keys MD Attending Provider Active Sta rt: October 15, 2024 End: October 15, 2024 Dr. Souleymane Keys MD Emergency Provider Active Sta rt: October 15, 2024 End: October 15, 2024 Team Status: Active Member Role/Relationship Status Dates Maura Mercado NP-C Primary Care Provider Active Start: November 16, 2024 Maura Mercado NP-C Referring Provider Active Start: November 16, 2024 Dr. All Cast MD Attending Provider Active S tart: November 16, 2024 Team Status: Active Member Role/Relationship Status Dates Maura [place] , DEPUTY SHERIFF CUSTODY-C Primary Care Provider Active Start: November 16, 2024 Maura Jess , DEPUTY SHERIFF CUSTODY-C Attending Provider Active Start: November 16, 2024 Maura Jess , DEPUTY SHERIFF CUSTODY-C Referring Provider Active Start: November 16, 2024 Team Status: Inactive Member Role/Relationship Status Dates Tosha Xavier DEPUTY SHERIFF CUSTODY, DEPUTY SHERIFF CUSTODY-C Referring Provider Active S tart: February 09, 2025 End: February 09, 2025 Dr. Rudolph Smith MD Attending Provider Active Start: February 09, 2025 End: February 09, 2025 Maura [place] , DEPUTY SHERIFF CUSTODY-C Primary Care Provider Active Start: February 09, 2025 End: February 09, 2025 Team Status: Active Member Role/Relationship Status Dates Maura Jess , DEPUTY SHERIFF CUSTODY-C Primary Care Provider Active Start: November 16, 2024 Maura Jess , DEPUTY SHERIFF CUSTODY-C Referring Provider Active Start: November 16, 2024 Dr. All Cast MD Attending Provider Active S tart: November 16, 2024 Team Status: Active Member Role/Relationship Status Dates Maura Jess , DEPUTY SHERIFF CUSTODY-C Primary Care Provider Active Start: November 16, 2024 Maura Jess , DEPUTY SHERIFF CUSTODY-C Attending Provider Active Start: November 16, 2024 Maura Jess , DEPUTY SHERIFF CUSTODY-C Referring Provider Active Start: November 16, 2024 Team Status: Inactive Member Role/Relationship Status Dates Tosha Xavier DEPUTY SHERIFF CUSTODY, DEPUTY SHERIFF CUSTODY-C Referring Provider Active S tart: February 09, 2025 End: February 09, 2025 Dr. Rudolph Smith MD Attending Provider Active Start: February 09, 2025 End: February 09, 2025 Maura Mercado , DEPUTY SHERIFF CUSTODY-C Primary Care Provider Active Start: February 09, 2025 End: February 09, 2025 Team Status: Inactive Member Role/Relationship Status Dates Maura Jess , DEPUTY SHERIFF CUSTODY-C Primary Care Provider Active Start: March 02, 2025 End: March 02, 2025 Dr. Rudolph Smith MD Attending Provider Active Start: March 02, 2025 End: March 02, 2025 Dr. Rudolph Smith MD Referring Provider Active Start: March 02, 2025 End: March 02, 2025 Team Status: Active Member Role/Relationship Status Dates Maura Mercado , DEPUTY SHERIFF CUSTODY-C Primary care physician Active Team Status: Inactive Member Role/Relationship Status Dates Tosha Xavier DEPUTY SHERIFF CUSTODY, DEPUTY SHERIFF CUSTODY-C Referring Provider Active S tart: February 09, 2025 End: February 09, 2025 Dr. Rudolph Smith MD Attending physician Active Start: February 09, 2025 End: February 09, 2025 Maura Mercado DEPUTY SHERIFF CUSTODY-C Primary care physician Active Start: February 09, 2025 End: February 09, 2025 Team Status: Inactive Member Role/Relationship Status Dates Maura Mercado DEPUTY SHERIFF CUSTODY-C Primary care physician Active Start: March 02, 2025 End: March 02, 2025 Dr. Rudolph Smith MD Attending physician Active Start: March 02, 2025 End: March 02, 2025 Dr. Rudolph Smith MD Referring Provider Active Start: March 02, 2025 End: March 02, 2025 Team Status: Inactive Member Role/Relationship Status Dates Maura Mercado DEPUTY SHERIFF CUSTODY-C Primary care physician Active Start: April 14, 2025 End: April 14, 2025 Dr. Rudolph Smith MD Attending physician Active Start: April 14, 2025 End: April 14, 2025 Dr. Rudolph Smith MD Referring Provider Active Start: April 14, 2025 End: April 14, 2025 Team Status: Active Member Role/Relationship Status Dates Maura Mercado NP-C Primary care physician Active Start: April 14, 2025 Dr. Rudolph Smith MD Referring Provider Active Start: April 14, 2025 Dr. Rudolph Smith MD Nurse Practitioner Active Start: April 14, 2025 Dr. Parvez Macario MD Attending physician Active Start: April 14, 2025 Team Status: Active Member Role/Relationship Status Dates Maura Mercado DEPUTY SHERIFF CUSTODY-C Primary care physician Active Start: April 28, 2025 Dr. Rudolph Smith MD Attending physician Active Start: April 28, 2025 Dr. Rudolph Smith MD Referring Provider Active Start: April 28, 2025 Team Status: Active Member Role/Relationship Status Dates Maura Mercado DEPUTY SHERIFF CUSTODY-C Primary care physician Active Start: April 28, 2025 Dr. Rudolph Smith MD Referring Provider Active Start: April 28, 2025 Dr. Rudolph Smith MD Nurse Practitioner Active Start: April 28, 2025 Dr. Parvez Macario MD Attending physician Active Start: April 28, 2025 Team Status: Inactive Member Role/Relationship Status Dates MILTON Winter Primary care physician Active Start: May 04, 2025 End: May 04, 2025 MILTON Winter Referring Provider Active Start: May 04, 2025 End: May 04, 2025 Dr. Rudolph Smith MD Attending physician Active Start: May 04, 2025 End: May 04, 2025 Goals (unrecognized section and content) Health Concern Goal Type Priority Status No Information Reason for Visit (unrecogniz ed section and content) Reason Comments New Patient Specialty Diagnoses / Procedures Referred By Contac t Referred To Contact Cardiology Diagnoses Chest pain, unspecified Shortness of breath Chronic fatigue, unspecified Dizziness and giddiness Bilateral leg edema Procedures CO OFFICE/OP CONSLTJ NEW/EST PT MOD MDM 40 MINUTES Tosha Xavier, AVIATION PROJECT MANAGER - SHELL S[address]TER [address] [place] [address] Pollo Weeks MD [address] [place] [address] Referral ID Status Reason Start Date Expiration Date Visits Re quested Visits Authorized [id number] Closed 12/18/2023 12/17/2024 1 1 Reason Comments Chest Pain Chest pain, nausea,d izzines, black out this morning. Specialty Diagnoses / Procedures Referred By Contac t Referred To Contact Diagnoses Syncope, unspecified syncope type Chest pain, unspecified type Procedures .. Berry Ott MD [address] [place] [address] Phone: tel: fax: [facility]U [address] [place] [address] Phone: tel: Referral ID Status Reason Start Date Expiration Date Visits Re quested Visits Authorized [id number] 1 1 Reason Comments 1 Year Follow-up [...] split. 0808 (Given - Provid er: Indigo Craft RN) atorvastatin (Lipitor) tablet 40 mg 40 mg, Oral, Nightly, First dose on Sat11/18/24 at 2100 2042 (Given - Provider: Rodriguez Ornelas RN) bumetanide (Bumex) tablet 1 mg 1 mg, Oral, Every other day, First dose on Sat11/19/24 at 0900 08 (Given - Provid er: Indigo Craft RN) enoxaparin (Lovenox) syringe 40 mg 40 mg, SubCUTAneous, Every 24 hours scheduled (Daily), First dose on Sat11/19/24 at 0900, Indication of Use: Prophylaxis-DVT/PE, Indications: Prophylaxis of Venous Thromboembolism 807 (Given - Provid er: Indigo Craft RN) [...] Change in vital signs)2100 (Dose Auto Held) 0900 (Dose Auto Held)1949 [...] Ott MD - Reason: Change in vital signs)1930 (Dose Auto Held) 0900 (Dose Auto Held)1950 (Unheld by provider - Provider: Automatic Discharge Provider) pantoprazole (ProtoNix) EC tablet 40 mg 40 mg, Oral, Daily before breakfast, First dose on Sat11/19/24 at 0600, Substituted for esomeprazole (Nexium). Do not crush, chew, or split. 06 (Given - Provid er: Alanis Johnson RN) [...] IntraVENous, IMG once PRN, contrast, Starting on Sat11/19/24 at 1356, For 1 dose 1406 (Given [...] BE BASED ON THE PRIMARY CLINICAL RECORDS. RAP Index [facility]. provides no warranty or guarantee of the accuracy or completeness of information in this document.
[2025-06-20 14:34] LABS: Anion Gap 9 (5-15); BUN 8 mg/dL (4-19); BUN/Creat Ratio 11.2 RATIO (10-20); Calcium,Total 9.2 mg/dL (7.6-11.0); Carbon Dioxide 27.2 mmol/L (21.0-32.0); Chloride 103 mmol/L (98-108); Estimated Creatinine Clearance 45.02 ml/min (50-250); Glucose 98 mg/dL (70-99); Magnesium 2.4 mg/dL (1.5-2.2); Potassium 4.3 mmol/L (3.3-5.1); Troponin T High Sensitivity 11 ng/L (<=14)
[2025-06-20 15:00] VITALS: BP 135/70; PULSE 78; RESP 18; O2SAT 99
[2025-06-20 16:00] VITALS: BP 138/70; PULSE 80; RESP 18; O2SAT 99
[2025-06-20 16:55] LABS: Troponin T High Sens 2 HR 11 ng/L (<=14)
[2025-06-20 17:33] VITALS: BP 138/70; PULSE 80; RESP 18; TEMP 37; O2SAT 99
== END 2025-06-20 17:34 | disposition home or self-care (01) ==
PROVIDERS: Emergency Provider Emergency Medicine; PCP Nurse Practitioner Family; Visit Provider Emergency Medicine
DX: R07.9 Chest pain, unspecified (principal); I25.10 Atherosclerotic heart disease of native coronary artery without angina pectoris; I10 Essential (primary) hypertension; E03.9 Hypothyroidism, unspecified; Z79.890 Hormone replacement therapy; Z79.899 Other long term (current) drug therapy; K21.9 Gastro-esophageal reflux disease without esophagitis; Z79.82 Long term (current) use of aspirin; Z95.5 Presence of coronary angioplasty implant and graft; Z90.49 Acquired absence of other specified parts of digestive tract
CPT/HCPCS: 71045; 80048; 83735; 84484; 85025; 93005; 99283; A4216